=== PATIENT | female | born 1965 | race Caucasian/White ===

== ENCOUNTER → 2016-11-24 | Outpatient (CLI) | payer OTHER ==
--- NOTE | 2016-11-28 11:07 | MM ---
Reason for exam: screening (asymptomatic). Last mammogram was performed 2 years and 1 month ago. History: Patient is postmenopausal. Took hormonal contraceptives for 3 months beginning at age 17. Physical Findings: A clinical breast exam by your physician is recommended on an annual basis and results should be correlated with mammographic findings. MG Screening Mammo w CAD Bilateral CC and MLO view(s) were taken. Prior study comparison: October 23, 2014, bilateral MG screening mammo w CAD. There are scattered fibroglandular densities. No significant changes when compared with prior studies. ASSESSMENT: Negative, BI-RAD 1 RECOMMENDATION: Routine screening mammogram of both breasts in 1 year.
== END | disposition home or self-care (01) ==
LOC: RADMAMWWP 08:55
PROVIDERS: ATTEND Family Medicine
DX: Z12.31 Encounter for screening mammogram for malignant neoplasm of breast (principal)

== ENCOUNTER 2016-12-20 09:01 | Day surgery (SDC) | payer OTHER ==
[2016-12-19 10:45] VITALS: BMI 45.9
--- NOTE | 2016-12-20 08:50 | P.GSHP ---
History of Present Illness H&P Date: 12/20/16 CHIEF COMPLAINT: Colon screen HISTORY OF PRESENT ILLNESS: The patient is a 51-year-old female who presents for colon screen. Lower endoscopy was offered for further evaluation and management. PAST MEDICAL HISTORY: Please see list. PAST SURGICAL HISTORY: Please see list. MEDICATIONS: Please see list. ALLERGIES: Please see list. SOCIAL HISTORY: No illicit drug use FAMILY HISTORY: No reports of Crohn disease or ulcerative colitis. REVIEW OF ORGAN SYSTEMS: CONSTITUTIONAL: No reports of fevers or chills. PHYSICAL EXAM: VITAL SIGNS: Stable GENERAL: Well-developed pleasant in no acute distress. HEENT: No scleral icterus. Extraocular movements grossly intact. Moist buccal mucosa. NECK: Supple without lymphadenopathy. CHEST: Unlabored respirations. Equal bilateral excursions. CARDIOVASCULAR: Regular rate and rhythm. Distal 2+ pulses. ABDOMEN: Soft, nontender, nondistended. MUSCULOSKELETAL: No clubbing, cyanosis, or edema. ASSESSMENT: 1. Colon screen. PLAN: 1. Recommend proceeding with a lower endoscopy Past Medical History Past Medical History: Deep Vein Thrombosis (DVT), Hypertension History of Any Multi-Drug Resistant Organisms: None Reported Past Surgical History: Cholecystectomy Additional Past Surgical History / Comment(s): STATES ESOPHAGUS WAS TOO TIGHT AND THEY REMOVED HER RIB AND DID HILAR PROCEDURE. Past Anesthesia/Blood Transfusion Reactions: No Reported Reaction Past Psychological History: Depression Smoking Status: Former smoker Past Alcohol Use History: Occasional Additional Past Alcohol Use History / Comment(s): QUIT 4 YEARS AGO. SMOKED 2 PPD. SMOKE OVER 30 YEARS. Past Drug Use History: None Reported - Past Family History Father Family Medical History: Cancer Additional Family Medical History / Comment(s): PROSTATE CANCER Medications and Allergies Home Medications Medication Instructions Recorded Confirmed Type Lisinopril [Zestril] 20 mg PO DAILY@1200 09/26/16 12/19/16 History Venlafaxine HCl [Effexor XR] 150 mg PO DAILY@1200 12/19/16 12/19/16 History Allergies Allergy/AdvReac Type Severity Reaction Status Date / Time No Known Allergies Allergy Verified 12/19/16 10:12
[~2016-12-20 09:01] MED LIST: LACTATED RINGERS 1,000 ML IV SCH
[2016-12-20 09:18] VITALS: TEMP 97.9
[2016-12-20] MEDS ORDERED: LIDOCAINE 1% 20 ML VIAL (10MG/ML) FOR IV START INTRADERMA ONE (09:20)
[2016-12-20] MEDS ORDERED: PROPOFOL 10 MG/ML 20 ML VIAL IV ONE (09:27)
--- NOTE | 2016-12-20 09:52 | P.PCN ---
Date of Procedure: 12/20/16 Preoperative Diagnosis: Postoperative Diagnosis: Procedure(s) Performed: Implants: Indications for Procedure: Operative Findings: Description of Procedure: PREOPERATIVE DIAGNOSIS: Colonoscopy screening. Family history of colon polyps, sister. POSTOPERATIVE DIAGNOSIS: Colonoscopy screening. Family history of colon polyps, sister. Diverticulosis, scattered. External hemorrhoids, grade 2. Gastroesophageal reflux disease with regurgitation. OPERATION: Colonoscopy to the ascending colon. SURGEON: Carolann Oliver MD. ANESTHESIA: MAC. INDICATIONS: The patient is a 54-year-old female who presents for her first colonoscopy screening. Benefits and risks were described and informed consent was obtained. DESCRIPTION OF PROCEDURE: The patient had undergone Gatorade, MiraLAX and Dulcolax prep. She had been brought into the operating room and laid in the left lateral decubitus position. After adequate intravenous sedation, the rectum was examined with 2% lidocaine jelly. No external hemorrhoids were encountered. The rectal tone was within normal limits. No lesions were palpated in the rectal vault. The prep was inadequate as moderate liquid stool was found throughout the colonic cabrera. An Olympus colonoscope was advanced to the ascending colon whereby the patient started to regurgitate via her nostrils. Her poor prep limited clear visualization of the mucosal folds. The scope was slowly withdrawn. Scattered diverticulosis was encountered. No large pedunculated colonic polyps over 1 cm were found. No evidence of focal colitis was found. Retroflexion of the scope demonstrated grade 2 internal hemorrhoids without active bleeding or inflammation. The colon was desufflated. The patient had tolerated the procedure well. Withdrawal time was over 6 minutes. FINDINGS: Internal hemorrhoids, grade 2. External prolapsed hemorrhoids, grade 2. No arteriovenous malformations. No adenomatous polyps. No focal colitis. Sigmoid diverticulosis. Active regurgitation during procedure by nostrils. RECOMMENDATIONS: Lower endoscopy in one year, 2018 with 2 day prep. Recommend upper endoscopy for witnessed regurgitation and reflux. Plan - Discharge Summary New Discharge Prescriptions: No Action Lisinopril [Zestril] 20 mg PO DAILY@1200 Venlafaxine HCl [Effexor XR] 150 mg PO DAILY@1200 Discharge Medication List Lisinopril [Zestril] 20 mg PO DAILY@1200 09/27/15 [History] Venlafaxine HCl [Effexor XR] 150 mg PO DAILY@1200 12/19/16 [History] Follow up Appointment(s)/Referral(s): Carolann Oliver MD [STAFF PHYSICIAN] - 01/09/17 Patient Instructions/Handouts: Gastroesophageal Reflux Disease (DC), Diverticulosis (GEN), Diverticulosis Diet (GEN) Discharge Disposition: HOME SELF-CARE
[2016-12-20 09:53] VITALS: RESP 16
[2016-12-20 10:22] VITALS: BP 145/91; PULSE 73
== END 2016-12-20 10:41 | disposition home or self-care (01) ==
LOC: ORWHC2ENDO 09:01
PROVIDERS: ATTEND Surgery Plastic and Reconstructive Surgery
DX: Z12.11 Encounter for screening for malignant neoplasm of colon (principal); K57.30 Diverticulosis of large intestine without perforation or abscess without bleeding; K64.1 Second degree hemorrhoids; Z83.71 Family history of colonic polyps; F32.9 Major depressive disorder, single episode, unspecified; I10 Essential (primary) hypertension; Z87.891 Personal history of nicotine dependence; Z79.899 Other long term (current) drug therapy
CPT/HCPCS: J2704; G0105; 45378

== ENCOUNTER → 2017-01-15 | Outpatient (CLI) | payer OTHER ==
--- NOTE | 2017-01-15 10:18 | FL ---
EXAMINATION: Cervical and Thoracic Esophagram DATE OF EXAM: 01/15/2017 CLINICAL INDICATION: 52-year-old female with gastroesophageal reflux disease, history of 3 prior esop hageal dilatations and hilar myotomy in 1989. Patient with sensation of food stuck in the epigastric area. COMPARISON: None Total Fluoroscopy Time: 3 minutes FINDINGS: The swallowing mechanism is normal and hypopharyngeal anatomy is preserved. There is diffuse esophageal dilatation and redundancy of the lower esophagus. There is narrowing at t he level of the GE junction with a narrow stream of contrast progressing into the stomach. However, t here is progressive pooling of contrast in the esophagus with mottled ingested debris retained in the lower esophagus as well. On the patient is brought supine, there is reflux to the thoracic inlet level and mild ingested debri s noted throughout. No definite mucosal abnormality is seen. No definite hiatal hernia. IMPRESSION: 1. Diffusely dilated esophagus with narrowing at the GE junction resulting in retained ingested debri s within the lower esophagus and gradual pooling of contrast. Only a thin stream of contrast progress es into the stomach. 2. Moderate to severe gastroesophageal reflux when the patient was brought supine.
== END | disposition home or self-care (01) ==
LOC: RADFLWHC 09:27
PROVIDERS: ATTEND Surgery Plastic and Reconstructive Surgery
DX: K21.9 Gastro-esophageal reflux disease without esophagitis (principal); K22.8 Other specified diseases of esophagus; K22.2 Esophageal obstruction
CPT/HCPCS: 74220

== ENCOUNTER 2017-03-24 22:23 | Emergency (ER) | payer OTHER ==
[2017-03-24 22:32] VITALS: BP 143/93; PULSE 98; RESP 18; TEMP 98.1
[2017-03-24] MEDS ORDERED: DIPH,PERTUS(ACELL)TETVAC-LF 0.5 ML VIAL IM ONE (22:43)
--- NOTE | 2017-03-24 22:43 | ED ---
Upper Extremity HPI - General Chief Complaint: Wound/Laceration Stated Complaint: IHS/Finger Injury Time Seen by Provider: 03/24/17 22:29 Source: patient Mode of arrival: ambulatory Limitations: no limitations - History of Present Illness Initial Comments: This is a 52-year-old female who presents to the emergency department with chief complaint of left index finger injury. Patient was at work at the time of the incident. Patient states the incident happened at about 10 PM this evening. She was at work in a factory using a press. She accidentally pressed the toggle switch that closes a metal clamp and crushed her left index finger in the clamp. She was able to quickly press the switch again and it released her finger. She states that her finger feels "numb." She states she has full range of motion of her index finger. Denies fever, chills, chest pain, shortness of breath, abdominal pain, nausea or vomiting, constipation or diarrhea, dysuria or hematuria, tingling, headache or vision changes. - Related Data Home Medications Medication Instructions Recorded Confirmed Venlafaxine HCl [Effexor XR] 150 mg PO DAILY@1200 12/19/16 03/06/17 Lisinopril-Hctz 20-25 mg 1 tab PO DAILY@1200 03/06/17 03/06/17 [Zestoretic 20-25] Omeprazole 20 mg PO DAILY@1200 03/06/17 03/06/17 Previous Rx's Medication Instructions Recorded Cephalexin [Keflex] 500 mg PO Q12HR #20 cap 03/24/17 Allergies Allergy/AdvReac Type Severity Reaction Status Date / Time No Known Allergies Allergy Verified 03/24/17 22:32 Review of Systems ROS Statement: Those systems with pertinent positive or pertinent negative responses have been documented in the HPI. ROS Other: All systems not noted in ROS Statement are negative. Past Medical History Past Medical History: Deep Vein Thrombosis (DVT), Hypertension History of Any Multi-Drug Resistant Organisms: None Reported Past Surgical History: Cholecystectomy Additional Past Surgical History / Comment(s): STATES ESOPHAGUS WAS TOO TIGHT AND THEY REMOVED HER RIB AND DID HILAR PROCEDURE. Past Anesthesia/Blood Transfusion Reactions: No Reported Reaction Additional Past Alcohol Use History / Comment(s): QUIT 4 YEARS AGO. SMOKED 2 PPD. SMOKE OVER 30 YEARS. - Past Family History Father Family Medical History: Cancer Additional Family Medical History / Comment(s): PROSTATE CANCER General Exam - General Exam Comments Initial Comments: General: Awake and alert, well-developed; in no apparent distress. HEENT: Head atraumatic, normocephalic. Pupils are equal, round and reactive to light. Extraocular movements intact. Neck: Supple. Normal ROM. Cardiovascular: Regular rate and rhythm. No murmurs, rubs or gallops. Chest symmetrical. Respiratory: Lungs clear to auscultation bilaterally. No wheezes, rales or rhonchi. Normal respiratory effort with no use of accessory muscles. Musculoskeletal: Full active and passive range of motion of left index finger. Sensation is intact. Radial pulses are 2+ equal and palpable bilaterally. Skin: [place], warm and dry without rashes. There is a 0.5 cm skin avulsion proximal to the fingernail. Bleeding is controlled Small 0.25cm linear laceration on proximal fingernail without evidence of nail bed involvement. Neurological: Alert and oriented x3. CN II-XII grossly intact. Speech is fluent and answers are appropriate. No focal neuro deficits. Psychiatric: Normal mood and affect. No overt signs of depression or anxiety noted. Course Vital Signs 03/24/17 22:28 Temperature 98.1 F Pulse Rate 98 Respiratory 18 Rate Blood Pressure 143/93 O2 Sat by Pulse 98 Oximetry Procedures - Laceration Laceration #1 Consent Obtained: verbal consent Indication: laceration Site: hand (dorsal distal left index finger ) Size (cm): 1 (0.5 cm) Description: avulsion Depth: simple, single layer Anesthetic Used: lidocaine 1% Anesthesia Technique: local infiltration Amount (mls): 2 Pre-repair: wound explored, irrigated extensively, deep structures intact Type of Sutures: nylon Size of Sutures: 4-0 Number of Sutures: 1 Technique: simple, interrupted Patient Tolerated Procedure: well, no complications Medical Decision Making - Medical Decision Making This is a 52-year-old female who presents to the emergency department for evaluation following a crush injury to her left index finger while at work. There is a skin avulsion proximal to the fingernail with minor involvement of the fingernail itself. There is no evidence of nail bed involvement. X-ray of the left index finger revealed a non-displaced fracture of the distal phalanx of the left index finger. One suture was placed to hold skin avulsion together. A finger splint was also placed for added protection. Patient tolerated both well without complication. Patient will be discharged home with recommendation to follow-up with orthopedics on Sunday morning. She will be prescribed Keflex. She is in agreement with the plan and voiced understanding. All questions were answered. - Radiology Data Radiology results: report reviewed Finger x-ray findings: There is a nondisplaced fracture of the medial aspect of the tuft of the distal phalanx of the index finger left hand. Remainder of exam is unremarkable. Impression: Tuft fracture Disposition Clinical Impression: Finger laceration, Open fracture of tuft of distal phalanx of finger Disposition: HOME SELF-CARE Condition: Good Instructions: Finger Laceration (ED), Crush Injury (ED), Finger Fracture (ED) Additional Instructions: Please take medications as prescribed. Please follow up with Dr. Garcia, orthopedics, Sunday. Please keep splint clean, dry and intact. Please follow up with primary care provider within 1-2 days. Return to emergency department if symptoms should worsen or any concerns arise. Prescriptions: Cephalexin [Keflex] 500 mg PO Q12HR #20 cap Referrals: Juanito Abreu DO [Primary Care Provider] - 1-2 days Rafi Garcia MD [STAFF PHYSICIAN] - 1-2 days Time of Disposition: 23:18
--- NOTE | 2017-03-24 22:48 | XR ---
EXAMINATION TYPE: XR finger LT DATE OF EXAM: 03/24/2017 COMPARISON: NONE HISTORY: Injury. Pain. TECHNIQUE: 3 views FINDINGS: There is nondisplaced fracture of the medial aspect of the tuft of the distal phalanx of th e index finger left hand. Remainder of exam is unremarkable. IMPRESSION: Tuft fracture.
== END 2017-03-24 23:27 | disposition home or self-care (01) ==
LOC: EC 22:23
DX: S62.661B Nondisplaced fracture of distal phalanx of left index finger, initial encounter for open fracture (principal); I10 Essential (primary) hypertension; Z23 Encounter for immunization; Z79.899 Other long term (current) drug therapy; W31.89XA Contact with other specified machinery, initial encounter; Y93.89 Activity, other specified; Y99.0 Civilian activity done for income or pay; Y92.69 Other specified industrial and construction area as the place of occurrence of the external cause
CPT/HCPCS: 12001; 90471; 90715; 99283

== ENCOUNTER → 2017-05-25 | Day surgery (SDC) | payer OTHER ==
[2017-05-23 12:10] VITALS: BMI 45.9
[2017-05-25 11:55] VITALS: BP 128/73; PULSE 98; RESP 16; TEMP 97.2
--- NOTE | 2017-06-22 15:06 | PCN ---
PROCEDURE NOTE DATE OF SERVICE: 05/27/2017 BRIEF HISTORY: The patient is a 52-year-old white female patient who has high-resolution impedance esophageal manometry for evaluation of dysphagia and passive regurgitation. The patient was diagnosed with esophageal achalasia 30 years ago and she had a myotomy. She had an upper endoscopy by Dr. Oliver a few months ago that showed evidence of dilated esophagus with retained solid food but patient lower esophageal sphincter. Because of her symptoms, she is scheduled for an esophageal manometry today. Procedure performed, high resolution impedance manometry. , consent was obtained from the patient, she was brought into the endoscopy unit. Esophageal manometry catheter was passed from the internal nostril and gently advanced into the esophagus and stomach. Study was performed by Endoscopy nurse, Mercedes Alatorre. The interpretation was performed using standard Santyl measurements/[place] classification. FINDINGS: 1. Integral residual pressure (IRP) 16 mmHg, mean DCI 383 mmHg, VERNON 19 mmHg. Peristalsis 0%. Complete bolus transit of liquid as well as with viscus was 0%. 2. There were isometric contractions, isometric pressurization noted throughout the study involving all the swallows. INTERPRETATION: The impedance esophageal manometry study shows evidence of a peristalsis but the integral residual pressures of the lower esophageal sphincter are within normal limits indicative of prior esophageal Heller myotomy. These changes are consistent with esophageal achalasia with prior esophageal myotomy. MMODL / IJN: [id number] /
== END ==
LOC: ORWHC2ENDO 11:44
PROVIDERS: ATTEND Internal Medicine Gastroenterology
DX: K22.0 Achalasia of cardia (principal); Z79.899 Other long term (current) drug therapy
CPT/HCPCS: 91010

== ENCOUNTER → 2017-07-23 | Outpatient (CLI) | payer OTHER ==
--- NOTE | 2017-07-23 09:32 | CT ---
EXAMINATION TYPE: CT chest wo con DATE OF EXAM: 07/23/2017 COMPARISON: NONE HISTORY: Patient complains of difficulty breathing. CT DLP: 715.7 mGycm. Automated Exposure Control for Dose Reduction was Utilized. TECHNIQUE: CT scan of the thorax is performed without IV contrast. FINDINGS: LUNGS: Within the left upper lobe in the perihilar region is vague groundglass changes. No pleural ef fusion. There is a noncalcified nodule on image 33 with the superior segment of the right lower lobe. Additional perihilar subsegmental consolidation noted within the left lower lobe. A second nodule al so noted within the right lower lobe measuring approximately 4 MEDIASTINUM: Lack of IV contrast is noted to limit evaluation for mediastinal and especially hilar a denopathy. There are no definitive greater than 1 cm hilar or mediastinal lymph nodes. Heart size is prominent and there is a large hiatal hernia. OTHER: Previous gallbladder surgery noted. Coronary artery calcification seen. Atherosclerotic change of the vasculature. IMPRESSION: 1. There are subsegmental groundglass changes involving the left upper and lower lobe which can occas ionally be seen with a pneumonitis or alveolitis. Correlate clinically. 2. Large hiatal hernia. 3. There are 2 less than 5 mm pulmonary nodules within the right lung. Six-month follow-up is recomme nded to confirm stability.
--- NOTE | 2017-07-23 12:18 | ECHOF ---
Referral Reason:I27.0 pulmonary hypertention MEASUREMENTS -------- HEIGHT: 162.6 cm WEIGHT: 158.8 kg BP: IVSd: 1.2 cm (0.6 - 1.1) LVIDd: 4.7 cm (3.9 - 5.3) LVPWd: 1.5 cm (0.6 - 1.1) IVSs: 1.4 cm LVIDs: 3.3 cm LVPWs: 1.4 cm LAESV Index (A-L): 27.00 ml/m Ao Diam: 3.1 cm (2.0 - 3.7) LA Diam: 3.9 cm (2.7 - 3.8) MV EXCURSION: 19.436 mm (> 18.000) MV EF SLOPE: 113 mm/s (70 - 150) EPSS: 0.4 cm MV E Dave: 0.67 m/s MV DecT: 238 ms MV A Dave: 0.87 m/s MV E/A Ratio: 0.77 RAP: 5.00 mmHg RVSP: 19.65 mmHg FINDINGS -------- Sinus rhythm. This was a technically adequate study. Morbid Obesity The left ventricular size is normal. There is mild concentric left ventricular hypertrophy. Overa ll left ventricular systolic function is low-normal with, an EF between 50 - 55 %. The right ventricle is normal in size. The left atrial size is normal. Normal LA size by volume 22+/-6 ml/m2. The right atrial size is normal. Mild mitral annular calcification present. Mild mitral regurgitation is present. Mild tricuspid regurgitation present. There is no evidence of pulmonary hypertension. The right v entricular systolic pressure, as measured by Doppler, is 19.65mmHg. The pulmonic valve was not well visualized. The aortic root size is normal. There is no pericardial effusion. CONCLUSIONS -------- 1. Morbid Obesity 2. The left ventricular size is normal. 3. There is mild concentric left ventricular hypertrophy. 4. Overall left ventricular systolic function is low-normal with, an EF between 50 - 55 %. 5. Normal LA size by volume 22+/-6 ml/m2. 6. Mild mitral annular calcification present. 7. Mild mitral regurgitation is present. 8. Mild tricuspid regurgitation present. 9. There is no evidence of pulmonary hypertension. 10. The right ventricular systolic pressure, as measured by Doppler, is 19.65mmHg. 11. The pulmonic valve was not well visualized. 12. The aortic root size is normal. 13. There is no pericardial effusion. ICT SECURITY SPECIALIST: Becca Rivera RDCS
== END | disposition home or self-care (01) ==
LOC: RADCTMAIN 08:04
PROVIDERS: ATTEND Internal Medicine
DX: R19.8 Other specified symptoms and signs involving the digestive system and abdomen (principal); L94.0 Localized scleroderma [morphea]
CPT/HCPCS: 71250; 93306

== ENCOUNTER → 2017-08-06 | Outpatient (CLI) | payer OTHER ==
[2017-08-06 17:44] LABS: HCT 37.6 % (34.0-46.0); HGB 12.3 gm/dL (11.4-16.0); MCH 28.3 pg (25.0-35.0); MCHC 32.6 g/dL (31.0-37.0); MCV 86.6 fL (80.0-100.0); Platelet Count 339 k/uL (150-450); RBC 4.34 m/uL (3.80-5.40); RDW 14.8 % (11.5-15.5); WBC 10.6 k/uL (3.8-10.6)
[2017-08-06 17:58] LABS: Anion Gap 12 mmol/L; Blood Urea Nitrogen 24 mg/dL (7-17); Carbon Dioxide 29 mmol/L (22-30); Chloride 101 mmol/L (98-107); Potassium 4.7 mmol/L (3.5-5.1); Sodium 142 mmol/L (137-145)
== END | disposition home or self-care (01) ==
LOC: LABPAT 17:18
PROVIDERS: ATTEND Internal Medicine Interventional Cardiology
DX: Z01.812 Encounter for preprocedural laboratory examination (principal); R07.9 Chest pain, unspecified
CPT/HCPCS: 36415; 80051; 82565; 84520; 85027

== ENCOUNTER → 2017-08-24 | Outpatient (CLI) | payer OTHER ==
[2017-08-24 12:31] LABS: ALT 30 U/L (9-52); AST 17 U/L (14-36); Cholesterol 188 mg/dL (<200); HDL Cholesterol 55 mg/dL (40-60); LDL Cholesterol,Calculated 105 mg/dL (0-99); Triglycerides 138 mg/dL (<150)
== END | disposition home or self-care (01) ==
LOC: LABWHC1 11:24
PROVIDERS: ATTEND Nurse Practitioner Adult Health
DX: E78.5 Hyperlipidemia, unspecified (principal)
CPT/HCPCS: 36415; 80061; 84450; 84460

== ENCOUNTER 2017-10-04 16:29 | Inpatient (IN) | payer OTHER ==
[2017-10-04] MEDS ORDERED: SODIUM CHLORIDE 0.9% 1,000 ML IV ONE (16:46)
[2017-10-04] MEDS ORDERED: IPRATROPIUM-ALBUTEROL 3 ML NEB INHALATION STA (16:46)
[2017-10-04] MEDS ORDERED: methylPREDNISolone SOD SUCCI 125 MG/2 ML VIAL IV STA (16:46)
--- NOTE | 2017-10-04 16:50 | ED ---
SOB HPI - General Chief Complaint: Shortness of Breath Stated Complaint: BHUMIKA Time Seen by Provider: 10/04/17 16:30 Source: patient, EMS Mode of arrival: EMS Limitations: no limitations - History of Present Illness Initial Comments: This is a 52-year-old female with a history of abnormal pulmonary function tests who presents emergency department for worsening shortness of breath for the last 3 or 4 days. She states that it has gradually worsened. She states that she has been coughing. No fevers or chills. No chest pain associated with this. She states that she's had quite a bit of wheezing. She received 2 DuoNeb treatments and a Xopenex treatment in route with slight improvement in her symptoms however states that she feels persistently short of breath. States that she has been coughing however this is nonproductive. No lower Chevys swelling area no abdominal pain. No other acute complaints. - Related Data Home Medications Medication Instructions Recorded Confirmed Venlafaxine HCl [Effexor XR] 150 mg PO DAILY 12/19/16 10/04/17 Lisinopril-Hctz 20-25 mg 1 tab PO DAILY 03/06/17 10/04/17 [Zestoretic 20-25] Omeprazole 20 mg PO DAILY 03/06/17 10/04/17 Atorvastatin [Lipitor] 10 mg PO DAILY 10/04/17 10/04/17 Multivitamins, Thera [Multivitamin 1 tab PO DAILY 10/04/17 10/04/17 (formulary)] Allergies Allergy/AdvReac Type Severity Reaction Status Date / Time No Known Allergies Allergy Verified 10/04/17 16:57 Review of Systems ROS Statement: Those systems with pertinent positive or pertinent negative responses have been documented in the HPI. ROS Other: All systems not noted in ROS Statement are negative. Past Medical History Past Medical History: Deep Vein Thrombosis (DVT), GERD/Reflux, Hypertension, Osteoarthritis (OA) Additional Past Medical History / Comment(s): DVT years ago after taking control, achalasia, osteoarthritis rt knee History of Any Multi-Drug Resistant Organisms: None Reported Past Surgical History: Cholecystectomy Additional Past Surgical History / Comment(s): STATES ESOPHAGUS WAS TOO TIGHT AND THEY REMOVED HER RIB AND DID HILAR PROCEDURE, eye surg. as a baby Past Anesthesia/Blood Transfusion Reactions: No Reported Reaction Past Psychological History: Anxiety, Depression Smoking Status: Former smoker Past Alcohol Use History: Occasional Past Drug Use History: None Reported - Past Family History Father Family Medical History: Cancer Additional Family Medical History / Comment(s): PROSTATE CANCER General Exam - General Exam Comments Initial Comments: Constitutional: Awake alert Appears comfortable Head: Normocephalic atraumatic Eyes: no conjunctival injection No scleral icterus EOMI Neck: No JVD Supple Heart: Regular rate rhythm normal S1-S2 no murmurs Lungs: The patient appears to Make without respiratory distress, there is diffuse wheezing throughout all lung p[place] Abdomen: Soft nondistended nontender Extremities: Non edematous DP pulses intact Radial pulses intact Neuro: A&Ox3 No focal neurologic deficits Psych: Appropriate mood and affect Limitations: no limitations Course Vital Signs 10/04/17 10/04/17 10/04/17 16:32 16:36 16:59 Temperature 99.0 F Pulse Rate 122 H 118 H Respiratory 16 20 Rate Blood Pressure 128/71 O2 Sat by Pulse 92 L Oximetry 10/04/17 10/04/17 17:06 17:08 Temperature Pulse Rate 122 H 120 H Respiratory 18 Rate Blood Pressure 128/71 O2 Sat by Pulse 95 Oximetry - Reevaluation(s) Reevaluation #1: 10/04/17 16:56 EKG showing sinus tachycardia with a rate of 121. There is no abnormal ST segment changes or T-wave inversions. QTC is 460. Other intervals normal. No ectopy. Medical Decision Making - Medical Decision Making This is a 52-year-old female who presents emergency department for shortness of breath and cough. Chest x-ray did not show any new abnormalities. No infiltrate or consolidation. However the patient does have a significant leukocytosis. She is not currently on steroids. The patient did feel improved after a DuoNeb treatment however was persistently tachypneic and wheezy. She is not retaining CO2 however due to her persistent symptoms and significant wheezing and going to keep her in the hospital overnight for IV steroids and breathing treatments. I also gave her azithromycin due to her leukocytosis. Dr. Soto accepts the admission. The patient was updated and agrees with plan. - Lab Data Result diagrams: 10/04/17 16:40 10/04/17 16:40 Lab Results 10/04/17 10/04/17 10/04/17 Range/Units 16:40 16:40 16:40 WBC 17.6 H (3.8-10.6) k/uL RBC 4.69 (3.80-5.40) m/uL Hgb 13.5 (11.4-16.0) gm/dL Hct 40.3 (34.0-46.0) % MCV 85.8 (80.0-100.0) fL MCH 28.7 (25.0-35.0) pg MCHC 33.4 (31.0-37.0) g/dL RDW 16.0 H (11.5-15.5) % Plt Count 390 (150-450) k/uL Neutrophils % 75 % Lymphocytes % 19 % Monocytes % 4 % Eosinophils % 0 % Basophils % 0 % Neutrophils # 13.1 H (1.3-7.7) k/uL Lymphocytes # 3.4 (1.0-4.8) k/uL Monocytes # 0.8 (0-1.0) k/uL Eosinophils # 0.1 (0-0.7) k/uL Basophils # 0.0 (0-0.2) k/uL Anisocytosis Slight PT (9.0-12.0) sec INR (<1.2) APTT (22.0-30.0) sec VBG pH 7.41 (7.31-7.41) VBG pCO2 36 L (37-51) mmHg VBG HCO3 22 L (24-28) mmol/L Sodium 148 H (137-145) mmol/L Potassium 3.8 (3.5-5.1) mmol/L Chloride 108 H (98-107) mmol/L Carbon Dioxide 21 L (22-30) mmol/L Anion Gap 19 mmol/L BUN 34 H (7-17) mg/dL Creatinine 1.01 (0.52-1.04) mg/dL Est GFR (CKD-EPI)AfAm 74 (>60 ml/min/1.73 sqM) Est GFR (CKD-EPI)NonAf 64 (>60 ml/min/1.73 sqM) Glucose 136 H (74-99) mg/dL Calcium 11.1 H (8.4-10.2) mg/dL Total Bilirubin 0.5 (0.2-1.3) mg/dL AST 27 (14-36) U/L ALT 39 (9-52) U/L Alkaline Phosphatase 82 (38-126) U/L CK-MB (CK-2) (0.0-2.4) ng/mL Troponin I (0.000-0.034) ng/mL NT-Pro-B Natriuret Pep pg/mL Total Protein 7.3 (6.3-8.2) g/dL Albumin 4.7 (3.5-5.0) g/dL 10/04/17 10/04/17 10/04/17 Range/Units 16:40 16:40 16:40 WBC (3.8-10.6) k/uL RBC (3.80-5.40) m/uL Hgb (11.4-16.0) gm/dL Hct (34.0-46.0) % MCV (80.0-100.0) fL MCH (25.0-35.0) pg MCHC (31.0-37.0) g/dL RDW (11.5-15.5) % Plt Count (150-450) k/uL Neutrophils % % Lymphocytes % % Monocytes % % Eosinophils % % Basophils % % Neutrophils # (1.3-7.7) k/uL Lymphocytes # (1.0-4.8) k/uL Monocytes # (0-1.0) k/uL Eosinophils # (0-0.7) k/uL Basophils # (0-0.2) k/uL Anisocytosis PT 10.1 (9.0-12.0) sec INR 1.0 (<1.2) APTT 22.9 (22.0-30.0) sec VBG pH (7.31-7.41) VBG pCO2 (37-51) mmHg VBG HCO3 (24-28) mmol/L Sodium (137-145) mmol/L Potassium (3.5-5.1) mmol/L Chloride (98-107) mmol/L Carbon Dioxide (22-30) mmol/L Anion Gap mmol/L BUN (7-17) mg/dL Creatinine (0.52-1.04) mg/dL Est GFR (CKD-EPI)AfAm (>60 ml/min/1.73 sqM) Est GFR (CKD-EPI)NonAf (>60 ml/min/1.73 sqM) Glucose (74-99) mg/dL Calcium (8.4-10.2) mg/dL Total Bilirubin (0.2-1.3) mg/dL AST (14-36) U/L ALT (9-52) U/L Alkaline Phosphatase (38-126) U/L CK-MB (CK-2) 1.9 (0.0-2.4) ng/mL Troponin I <0.012 (0.000-0.034) ng/mL NT-Pro-B Natriuret Pep 258 pg/mL Total Protein (6.3-8.2) g/dL Albumin (3.5-5.0) g/dL Disposition Clinical Impression: Bronchitis Disposition: ADMITTED IP TO THIS HOSP Condition: Stable
[2017-10-04 16:59] LABS: Anisocytosis Slight; Basophils % (A) 0 %; Eosinophils # (A) 0.1 k/uL (0-0.7); Eosinophils % (A) 0 %; HCT 40.3 % (34.0-46.0); HGB 13.5 gm/dL (11.4-16.0); Lymphocytes # (A) 3.4 k/uL (1.0-4.8); Lymphocytes % (A) 19 %; MCH 28.7 pg (25.0-35.0); MCHC 33.4 g/dL (31.0-37.0); MCV 85.8 fL (80.0-100.0); Monocytes # (A) 0.8 k/uL (0-1.0); Monocytes % (A) 4 %; Neutrophils # (A) 13.1 k/uL (1.3-7.7); Neutrophils % (A) 75 %; Platelet Count 390 k/uL (150-450); RBC 4.69 m/uL (3.80-5.40); WBC 17.6 k/uL (3.8-10.6)
[2017-10-04 17:02] LABS: VBG PH 7.41 (7.31-7.41)
[2017-10-04 17:08] LABS: Partial Thromboplastin Time 22.9 sec (22.0-30.0); Prothrombin Time 10.1 sec (9.0-12.0)
[2017-10-04 17:22] LABS: Albumin 4.7 g/dL (3.5-5.0); Calcium 11.1 mg/dL (8.4-10.2); Potassium 3.8 mmol/L (3.5-5.1); Total Bilirubin 0.5 mg/dL (0.2-1.3); Total Protein 7.3 g/dL (6.3-8.2)
--- NOTE | 2017-10-04 17:29 | XR ---
EXAMINATION TYPE: XR chest 2V DATE OF EXAM: 10/04/2017 COMPARISON: 07/03/2017 HISTORY: Short of breath TECHNIQUE: Frontal and lateral views of the chest are obtained. FINDINGS: There is slight blunting of left costophrenic angle. There is no heart failure. There is p robably hiatal hernia. There is no heart failure. Heart size appears normal. There are chest leads. IMPRESSION: There is pleural reaction at the left lung base that is improved compared to last exam. No heart failure. Hiatal hernia.
[2017-10-04 17:37] LABS: Creatine Kinase MB 1.9 ng/mL (0.0-2.4); Troponin I <0.012 ng/mL (0.000-0.034)
[2017-10-04] MEDS ORDERED: AZITHROMYCIN 500 MG in SODIUM CHLORIDE 0.9% 250 ML IVPB STA (17:41)
[2017-10-04] MEDS ORDERED: IPRATROPIUM-ALBUTEROL 3 ML NEB INHALATION SCH (20:00)
[2017-10-04] MEDS ORDERED: ALPRAZolam 0.25 MG TAB PO PRN (20:11)
[2017-10-04] MEDS ORDERED: ACETAMINOPHEN TAB 325 MG TAB PO PRN (20:11)
[2017-10-04] MEDS ORDERED: LACTULOSE 20 GM/30 ML CUP PO PRN (20:11)
[2017-10-04] MEDS ORDERED: MAGNESIUM HYDROXIDE 2,400 MG/10 ML CUP PO PRN (20:11)
[2017-10-04] MEDS ORDERED: NALOXONE 0.4 MG/ML 1 ML VIAL IV PRN (20:11)
[2017-10-04] MEDS ORDERED: CALCIUM CARBONATE 500 MG CHEWABLE PO PRN (20:11)
[2017-10-04] MEDS ORDERED: ONDANSETRON 4 MG/2 ML VIAL IVP PRN (20:11)
[2017-10-04] MEDS ORDERED: MELATONIN 3 MG TABLET PO PRN (20:11)
[2017-10-04 21:13] LABS: Glucose,Whole Blood 174 mg/dL (75-99)
[2017-10-04] MEDS: methylPREDNISolone SOD SUCCI 125 MG/2 ML VIAL IV SCH (23:32)
[2017-10-04] MEDS: IPRATROPIUM-ALBUTEROL 3 ML NEB INHALATION PRN (23:48)
[2017-10-05] MEDS: IPRATROPIUM-ALBUTEROL 3 ML NEB INHALATION PRN (03:36)
[2017-10-05] MEDS: methylPREDNISolone SOD SUCCI 125 MG/2 ML VIAL IV SCH ×3 (05:31→17:50)
--- NOTE | 2017-10-05 06:30 | HP ---
HISTORY AND PHYSICAL DATE OF ADMISSION: 10/04/17. DATE OF SERVICE: 10/04/17. PRESENTING COMPLAINT: Short of breath. HISTORY OF PRESENTING COMPLAINT: This is a pleasant 52-year-old patient I saw yesterday evening on the medical floor. The patient follows with Dr. Abreu. The patient's chronic stable medical conditions include GERD, hypertension, osteoarthritis, anxiety, depression. The patient has also got achalasia and patient has had previous surgery for the same. The patient does find the food seems to get stuck on the lower end of the food pipe. But she is told that nothing more can be done and she does take a soft bland diet for that reason. The patient presented with 3-4 days of progressively increasing shortness of breath, some wheezing, cough. The patient is able to put out a little bit of phlegm. The patient has had a low-grade fever she thinks. Appetite has gone down, feeling tired, run down. The patient is started on breathing treatments and antibiotics in the ER and admitted for the same. The patient denies any swelling of the legs or calves REVIEW OF SYSTEMS: CONSTITUTIONAL: Weak, tired, low-grade fever. HEENT: As above. RESPIRATORY: As above. CARDIOVASCULAR: None. GASTROINTESTINAL: As above. GENITOURINARY: None. MUSCULOSKELETAL: Arthritic pain in the joints. DERMATOLOGICAL, HEMATOLOGIC, LYMPHATIC: None. PSYCHIATRY: Anxiety, depression, controlled. NEUROLOGICAL: None. PAST MEDICAL HISTORY: DVT in the remote past, GERD, hypertension, osteoarthritis, achalasia with surgery, osteoarthritis of the knees. PAST SURGICAL HISTORY: Cholecystectomy, cardiac catheterization, esophageal procedure, eye surgery as a baby. PSYCH HISTORY: Anxiety, depression. SOCIAL HISTORY: The patient smoked for 2 packs a day for about 32 years, stopped about 5 years ago. The patient has a son at home and works as a flower shop laborer/designer in a factory. FAMILY HISTORY: Prostate cancer. HOME MEDICATIONS: 1. Vitamin D2 97568 units p.o. daily. 2. Lipitor 10 mg daily. 3. Multivitamin 1 tablet p.o. daily. 4. Effexor XR 150 mg p.o. daily. 5. Omeprazole 20 mg p.o. daily. 6. Zestoretic 20/25. ALLERGIES: None. PHYSICAL EXAMINATION: VITAL SIGNS ON PRESENTATION: Temperature 99, pulse 122, respirations 16, blood pressure 120/71, pulse 92% on 2-L. GENERAL APPEARANCE: Well built, BMI 45.9, lying in bed, short of breath, wheezing. EYES: Pupils equal. Conjunctivae normal. HEENT: External appearance of nose and ears normal. Oral cavity normal. NECK: JVD not raised. Mass not palpable. RESPIRATORY: Effort increased. Lungs, decreased breath sounds with prolonged expiration and wheezing. CARDIOVASCULAR: 1st and 2nd sounds normal. No edema. ABDOMEN: Soft, nontender. Liver and spleen not palpable. LYMPHATIC: No lymph node palpable in neck or axillae. PSYCHIATRY: Alert and oriented x3. Mood and affect slightly anxious-appearing. NEUROLOGICAL: Pupils equal. Cranial nerves grossly intact. Power and sensation grossly intact. INVESTIGATIONS: White count 7.6, hemoglobin 13.5, potassium 3.8, BUN 34, creatinine 1.01. ProBNP 258. EKG sinus tachycardia. Chest x-ray does not report anything acute. ASSESSMENT: 1. Acute severe chronic obstructive pulmonary disease exacerbation in an ex-smoker with possibly acute tracheobronchitis. 2. Gastroesophageal reflux disease. 3. Essential hypertension. 4. Primary osteoarthritis. 5. Achalasia with a prior history of surgery. Symptoms are still present. 6. Anxiety and depression, not otherwise specified. 7. Sinus tachycardia from chronic obstructive pulmonary disease exacerbation. 8. Morbid obesity, BMI 45.9. PLAN: Patient is started on nebulized bronchodilators, steroids. Home medications are resumed. Care was discussed with the patient. Questions were answered. We will get a pulmonary opinion. Dietitian will be consulted. MMODL / IJN: [id number] /
[2017-10-05 07:33] LABS: Glucose,Whole Blood 167 mg/dL (75-99)
[2017-10-05] MEDS: INSULIN ASPART 100 UNIT/ML 1 ML 10 ML VIAL SQ SCH ×4 (07:51→21:00)
[2017-10-05] MEDS: PANTOPRAZOLE 40 MG TABLET PO SCH (07:52)
[2017-10-05] MEDS: LISINOPRIL-HCTZ 20-25 MG 1 EACH TAB PO SCH (07:53)
[2017-10-05] MEDS: ATORVASTATIN 10 MG TAB PO SCH (07:53)
[2017-10-05] MEDS: VENLAFAXINE HCL ER 150 MG CAP PO SCH (07:53)
[2017-10-05] MEDS: ENOXAPARIN 40 MG/0.4 ML SYRINGE SQ SCH (07:55)
[2017-10-05] MEDS: IPRATROPIUM-ALBUTEROL 3 ML NEB INHALATION SCH ×5 (08:13→23:54)
--- NOTE | 2017-10-05 10:33 | CT ---
CT CHEST FOR PULMONARY EMBOLISM. EXAMINATION TYPE: CT angio chest DATE OF EXAM: 10/05/2017 INDICATION: Bronchitis, R/O PE, history of scleroderma CT DLP: 530.80 mGycm, Automated exposure control for dose reduction was used. CONTRAST: Patient injected with 100 ml mL of Isovue 370. COMPARISON: 07/23/2017 TECHNIQUE: CT of the chest is performed on a spiral scan at 2 mm thick sections. Study is performed with intravenous contrast timed for evaluation for pulmonary embolism. This will limit additional po rtions of the evaluation. 3-D MIP images reconstructed by the technologist are reviewed on the compu ter in the coronal and sagittal planes. FINDINGS: No persistent filling defects are evident to suggest an acute pulmonary embolism. The expected region of the esophagus is dilated with an air-fluid level. There appears to be a gastri c pull-through. Correlate with the patient's surgical history. Finding coronary, patient has history of scleroderma. No mediastinal or hilar adenopathy enlarged by CT criteria is evident. The ascending aorta diameter at the level of the main pulmonary artery is 3.5 cm. The main pulmonary artery diameter at the bifur cation is 3.1 cm. Coronary artery calcification is present. Minimal pneumonitis changes in the anterior left upper lung field. Mild peribronchial thickening is p resent. Some pneumonitis changes in the right middle lobe. Series 6 image 59. Mild patchy pneumonitis changes are within the posterior lung bases and within the lingula. Some peribronchial thickening is in lower lung field. Some chronic bronchitis may be present. Limited CT section through the upper abdomen are unremarkable. IMPRESSIONS: 1. Mild peribronchial thickening. Correlate for chronic bronchitis. 2. Scattered patchy infiltrates which are nonspecific. Correlate for an infectious etiology. Larger c onsolidations typical pneumonia are not identified. 3. Suspected gastric pull-through with dilated esophagus. 4. No acute pulmonary embolism.
[2017-10-05 10:46] VITALS: BMI 45.9
[2017-10-05 11:49] LABS: Glucose,Whole Blood 172 mg/dL (75-99)
[2017-10-05] MEDS: MULTIVITAMINS, THERA 1 EACH TAB PO SCH (12:34)
--- NOTE | 2017-10-05 13:41 | P.CNPUL ---
History of Present Illness Consult date: 10/05/17 Requesting physician: Gurinder Soto Reason for consult: dyspnea, cough, COPD, pneumonia, abnormal CXR/CT Chief complaint: Chest tightness, cough, fever, chills History of present illness: Mercedes is a 52-year-old white female patient of Dr. Abreu, who presented to the emergency department on 10/04/2017 with complaints of dyspnea, chest tightness, burning in the chest with coughing, subjective fever and chills. Her symptoms started on Sunday, on Sunday she try to see her PCP, however there were no openings, and she end up going to the [facility] urgent care, she was given a nebulized treatment there, IM Depo-Medrol, and was sent home with an albuterol inhaler. Her symptoms kept progressing, she went to work on however she could hardly walk from the parking lot to the building due to her severe dyspnea. Her boss told her to go back to see the doctor, and she went to the urgent care at the [facility] at the [facility] in [place]. There she was given 3 nebulized treatments [id number], and transferred to the [facility] emergency department per EMS. He is an ex-smoker, she quit 5 years ago, but prior to that she smoked up to 2 packs a day for 30 years. She has a history of hiatal hernia, and she was seen in the pulmonary office by Dr. Lopez for preop clearance. Outpatient PFT showed FEV1 of 53%, FVC of 58%, TLC of 85% of predicted, and DLCO of 50%, and patient was diagnosed with restrictive lung disease, secondary to interstitial lung disease. Outpatient CT chest from 07/23/2017 showed subsegmental groundglass changes involving the left upper and lower lobe could be related to pneumonitis or alveolitis, large hiatal hernia, and to less than 5 mm pulmonary nodules within the right lung. Echocardiogram from 07/23/2017 showed left ventricular systolic function with an EF between 50-55%, no evidence of pulmonary hypertension, right ventricular systolic pressure of 19.6 mmHg, and mild mitral , and tricuspid regurgitation. Other medical history includes hypertension, hyperlipidemia, GERD/reflux with esophagitis, depression, obesity, insomnia, CREST syndrome. Patient states she had an extensive workup by the geophysics professor, in the workup for scleroderma was negative. Chest x-ray completed in the emergency department on 10/04/2017 showed pleural reaction at the left lung base improved compared the last exam from June 2017, some heart failure, hiatal hernia was again seen. CT angios was completed and showed mild peribronchial thickening, consistent with chronic bronchitis. Nonspecific scattered patchy infiltrates, consistent with pneumonitis. No pulmonary embolism. Gastric pull-through was noted with dilated esophagus. Patient was given Zithromax and Rocephin in the emergency department, and we are seeing the patient in consultation for acute bronchitis, and the possibility of aspiration pneumonia related to her history of significant GERD/reflux, hiatal hernia, and esophagitis. Review of Systems All systems: negative Constitutional: Denies chills, Denies fever Eyes: denies blurred vision, denies pain Ears, nose, mouth and throat: Denies headache, Denies sore throat Cardiovascular: Denies chest pain, Denies shortness of breath Respiratory: Reports congestion, Reports dyspnea, Reports wheezing, Denies cough Gastrointestinal: Denies abdominal pain, Denies diarrhea, Denies nausea, Denies vomiting Genitourinary: Denies dysuria, Denies hematuria Musculoskeletal: Denies myalgias Integumentary: Denies pruritus, Denies rash Neurological: Denies numbness, Denies weakness Psychiatric: Denies anxiety, Denies depression Endocrine: Denies fatigue, Denies weight change Past Medical History Past Medical History: Deep Vein Thrombosis (DVT), GERD/Reflux, Hypertension, Osteoarthritis (OA) Additional Past Medical History / Comment(s): DVT years ago after taking control, achalasia, osteoarthritis rt knee History of Any Multi-Drug Resistant Organisms: None Reported Past Surgical History: Cholecystectomy, Heart Catheterization Additional Past Surgical History / Comment(s): STATES ESOPHAGUS WAS TOO TIGHT AND THEY REMOVED HER RIB AND DID HILAR PROCEDURE, eye surg. as a baby Past Anesthesia/Blood Transfusion Reactions: No Reported Reaction Past Psychological History: Anxiety, Depression Smoking Status: Former smoker Past Alcohol Use History: Occasional Additional Past Alcohol Use History / Comment(s): QUIT 5 YEARS AGO. SMOKED 2 PPD. SMOKE OVER 30 YEARS. Past Drug Use History: None Reported - Past Family History Father Family Medical History: Cancer Additional Family Medical History / Comment(s): PROSTATE CANCER Medications and Allergies Home Medications Medication Instructions Recorded Confirmed Type Venlafaxine HCl [Effexor XR] 150 mg PO DAILY 12/19/16 10/04/17 History Lisinopril-Hctz 20-25 mg 1 tab PO DAILY 03/06/17 10/04/17 History [Zestoretic 20-25] Omeprazole 20 mg PO DAILY 03/06/17 10/04/17 History Atorvastatin [Lipitor] 10 mg PO DAILY 10/04/17 10/04/17 History Ergocalciferol (Vitamin D2) 50,000 unit PO DAILY 10/04/17 10/04/17 History [Vitamin D2] Multivitamins, Thera [Multivitamin 1 tab PO DAILY 10/04/17 10/04/17 History (formulary)] Allergies Allergy/AdvReac Type Severity Reaction Status Date / Time No Known Allergies Allergy Verified 10/04/17 16:57 Physical Exam Vitals: Vital Signs Temp Pulse Pulse Resp BP BP Pulse Ox 10/05/17 11:44 108 H 10/05/17 11:34 108 H 10/05/17 08:23 85 10/05/17 08:13 85 10/05/17 06:05 97.4 F L 112 H 24 119/58 98 10/05/17 03:52 84 10/05/17 03:36 80 10/05/17 00:01 100 10/04/17 23:48 104 H 10/04/17 23:00 98.5 F 107 H 24 107/50 97 10/04/17 21:39 100 10/04/17 21:24 100 10/04/17 18:30 97.1 F L 118 H 22 111/89 91 L 10/04/17 18:12 112 H 16 127/82 97 10/04/17 17:08 120 H 18 128/71 95 10/04/17 17:06 122 H 10/04/17 16:59 118 H 10/04/17 16:36 20 10/04/17 16:32 99.0 F 122 H 16 128/71 92 L Intake and Output 10/04/17 10/05/17 10/05/17 22:59 06:59 14:59 Intake Total 400 100 Balance 400 100 Intake: Oral 400 100 Other: # Voids 2 1 # Bowel Movements 0 0 Weight 145.15 kg 145.15 kg Physical exam reveals a 52-year-old white female, obese, mildly dyspneic with conversation, and audibly wheezy - Constitutional General appearance: obese - EENT Eyes: EOMI, PERRLA ENT: NA/AT - Neck Neck: no lymphadenopathy Carotids: bilateral: upstroke normal Thyroid: bilateral: normal size - Respiratory Respiratory: bilateral: wheezing (Diffuse wheezes throughout), prolonged expiration - Cardiovascular Rhythm: regular Heart sounds: normal: S1, S2 ankle Peripheral Edema: absent: None foot Peripheral Edema: absent: None leg Peripheral Edema: absent: None dorsalis pedis Peripheral Pulses: bilateral: Normal radial pulse Peripheral Pulses: bilateral: Normal - Gastrointestinal General gastrointestinal: no organomegaly, soft, no tenderness - Neurologic Neurologic: CNII-XII intact - Musculoskeletal Musculoskeletal: gait normal, strength equal bilaterally - Psychiatric Psychiatric: A&O x's 3, appropriate affect, intact judgment & insight Results - Laboratory Findings CBC and BMP: 10/04/17 16:40 10/04/17 16:40 PT/INR, D-dimer PT 10.1 sec (9.0-12.0) 10/04/17 16:40 INR 1.0 (<1.2) 10/04/17 16:40 Abnormal lab findings: Abnormal Labs 10/04/17 10/04/17 10/04/17 16:40 16:40 16:40 WBC 17.6 H RDW 16.0 H Neutrophils # 13.1 H VBG pCO2 36 L VBG HCO3 22 L Sodium 148 H Chloride 108 H Carbon Dioxide 21 L BUN 34 H Glucose 136 H POC Glucose (mg/dL) Calcium 11.1 H 10/04/17 10/05/17 10/05/17 21:10 07:29 11:34 WBC RDW Neutrophils # VBG pCO2 VBG HCO3 Sodium Chloride Carbon Dioxide BUN Glucose POC Glucose (mg/dL) 174 H 167 H 172 H Calcium - Diagnostic Findings Chest x-ray: report reviewed, image reviewed CT scan - chest: report reviewed, image reviewed Additional studies: EKG reviewed Assessment and Plan Plan: Assessment: #1. Dyspnea, fever, leukocytosis secondary to possible aspiration pneumonia, patient with a history of hiatal hernia, GERD esophagitis. CT angios showed no evidence of pulmonary embolism, but there were areas of patchy pneumonitis and mild peribronchial thickening consistent with chronic bronchitis. Patient had previously been noted to have areas of nonspecific pneumonitis/alveolitis on the CT chest from June 2017 that were liters to be related to aspiration #2. History of nonspecific pulmonary nodules noted on the CT of the chest in June 2017, eating followed on an outpatient basis #3. Hypertension, hyperlipidemia #4. Severe GERD with esophagitis, hiatal hernia #5. Obesity #6. Chronic dyspnea on exertion #7. Depression #8. Nicotine dependence, in remission, quit 5 years ago, but has smoked up to 2 packs a day for 30 years Plan: We will switch to antibiotic coverage to Levaquin and Zosyn, for possibility of aspiration related pneumonia. Continue IV steroids, continue nebulized bronchodilators, will add Pulmicort and Perforomist. GI/DVT prophylaxis, continue monitoring labs, renal profile, electrolytes, fever pattern. I performed a history & physical examination of the patient and discussed their management with my nurse practitioner, Fanta Vega. I reviewed the nurse practitioner's note and agree with the documented findings and plan of care. Lung sounds are positive for diffuse wheezes throughout the lung pittman. The findings and the impression was discussed with the patient. I attest to the documentation by the nurse practitioner. Time with Patient: Greater than 30
[2017-10-05] MEDS: LEVOFLOXACIN 750 MG TAB PO SCH (14:27)
[2017-10-05] MEDS: PIPERACILLIN-TAZOBACTAM 3.375 GM in DEXTROSE/WATER 1 50ML.BAG IVPB SCH ×2 (15:49→23:36)
[2017-10-05 16:55] LABS: Glucose,Whole Blood 130 mg/dL (75-99)
--- NOTE | 2017-10-05 18:54 | PN ---
PROGRESS NOTE DATE OF SERVICE: October 05, 2017. PRESENTING COMPLAINT: Short of breath. INTERVAL HISTORY: Patient admitted with COPD exacerbation. Still having some wheezing. Slight cough. Did tolerate a little better diet. Lying in bed. REVIEW OF SYSTEMS: Done for constitutional, cardiovascular, GI and pulmonary, relevant findings as above. CURRENT MEDICATIONS: Reviewed and include IV Solu-Medrol and DuoNeb. PHYSICAL EXAMINATION: VITAL SIGNS: Temperature 97.4, pulse 112. Respiratory 24, blood pressure 109/58. Pulse ox 98% on 5 L. GENERAL APPEARANCE: Lying in bed, tired appearing. EYES: Pupils are equal. Conjunctivae normal. HEENT: External appearance of nose and ears normal. Oral cavity normal. NECK: JVD not raised. Mass not palpable. RESPIRATORY: Effort increased. LUNGS: Decreased breath sounds, prolonged expiration and wheezing. CARDIOVASCULAR: 1st and 2nd sounds normal. No edema. ABDOMEN: Soft, nontender. Liver and spleen not palpable. PSYCHIATRY: Alert and oriented x3. Mood and affect slightly anxious-appearing. INVESTIGATIONS: Accu-Cheks are noted. ASSESSMENT: 1. Acute severe chronic obstructive pulmonary disease exacerbation in an ex-smoker, possibly acute tracheobronchitis slow to respond. 2. Gastroesophageal reflux disease. 3. Essential hypertension. 4. Primary osteoarthritis. 5. Achalasia with prior history of surgery, symptoms still persist. 6. Anxiety, depression not otherwise specified. 7. Morbid obesity BMI 45.9. PLAN: Continue current medication and treatment plan. Patient is slow to respond. I told the patient to sit up. Follow. MMODL / IJN: [id number] /
[2017-10-05] MEDS: FORMOTEROL FUMARATE 20 MCG/2 ML NEBU INHALATION SCH (19:50)
[2017-10-05] MEDS: BUDESONIDE 1 MG/2 ML NEBU INHALATION SCH (19:50)
[2017-10-05 20:33] LABS: Glucose,Whole Blood 171 mg/dL (75-99)
[2017-10-05] MEDS: methylPREDNISolone SOD SUCCI 40 MG/ML 1 ML VIAL IV SCH (23:36)
[2017-10-06] MEDS: IPRATROPIUM-ALBUTEROL 3 ML NEB INHALATION SCH ×6 (03:32→23:40)
[2017-10-06] MEDS: FORMOTEROL FUMARATE 20 MCG/2 ML NEBU INHALATION SCH ×2 (07:53→19:27)
[2017-10-06] MEDS: BUDESONIDE 1 MG/2 ML NEBU INHALATION SCH ×2 (07:53→19:27)
[2017-10-06 07:55] LABS: Glucose,Whole Blood 167 mg/dL (75-99)
[2017-10-06 08:11] LABS: Anion Gap 12 mmol/L; Blood Urea Nitrogen 29 mg/dL (7-17); Calcium 10.4 mg/dL (8.4-10.2); Carbon Dioxide 28 mmol/L (22-30); Chloride 99 mmol/L (98-107); Glucose 144 mg/dL (74-99); Potassium 4.6 mmol/L (3.5-5.1); Sodium 139 mmol/L (137-145)
[2017-10-06] MEDS: INSULIN ASPART 100 UNIT/ML 1 ML 10 ML VIAL SQ SCH ×4 (08:31→21:49)
[2017-10-06] MEDS: ENOXAPARIN 40 MG/0.4 ML SYRINGE SQ SCH (08:32)
[2017-10-06] MEDS: ATORVASTATIN 10 MG TAB PO SCH (08:32)
[2017-10-06] MEDS: methylPREDNISolone SOD SUCCI 40 MG/ML 1 ML VIAL IV SCH ×3 (08:32→23:07)
[2017-10-06] MEDS: PANTOPRAZOLE 40 MG TABLET PO SCH (08:32)
[2017-10-06] MEDS: PIPERACILLIN-TAZOBACTAM 3.375 GM in DEXTROSE/WATER 1 50ML.BAG IVPB SCH (08:32)
[2017-10-06] MEDS: MULTIVITAMINS, THERA 1 EACH TAB PO SCH (08:33)
[2017-10-06] MEDS: VENLAFAXINE HCL ER 150 MG CAP PO SCH (08:33)
[2017-10-06] MEDS: LISINOPRIL-HCTZ 20-25 MG 1 EACH TAB PO SCH (08:33)
[2017-10-06 12:29] LABS: Glucose,Whole Blood 141 mg/dL (75-99)
[2017-10-06] MEDS: LEVOFLOXACIN 750 MG TAB PO SCH (12:55)
--- NOTE | 2017-10-06 13:56 | P.PN ---
Subjective Progress Note Date: 10/06/17 Principal diagnosis: Acute hypoxic respiratory failure secondary to suspected aspiration pneumonia with a history of hiatal hernia, GERD and esophagitis Mercedes is a 52-year-old white female patient of Dr. Abreu, who presented to the emergency department on 10/04/2017 with complaints of dyspnea, chest tightness, burning in the chest with coughing, subjective fever and chills. Her symptoms started on Sunday, on Sunday she try to see her PCP, however there were no openings, and she end up going to the [facility] urgent care, she was given a nebulized treatment there, IM Depo-Medrol, and was sent home with an albuterol inhaler. Her symptoms kept progressing, she went to work on however she could hardly walk from the parking lot to the building due to her severe dyspnea. Her boss told her to go back to see the doctor, and she went to the urgent care at the [facility] at the [facility] in [place]. There she was given 3 nebulized treatments [id number], and transferred to the [facility] emergency department per EMS. He is an ex-smoker, she quit 5 years ago, but prior to that she smoked up to 2 packs a day for 30 years. She has a history of hiatal hernia, and she was seen in the pulmonary office by Dr. Lopez for preop clearance. Outpatient PFT showed FEV1 of 53%, FVC of 58%, TLC of 85% of predicted, and DLCO of 50%, and patient was diagnosed with restrictive lung disease, secondary to interstitial lung disease. Outpatient CT chest from 07/23/2017 showed subsegmental groundglass changes involving the left upper and lower lobe could be related to pneumonitis or alveolitis, large hiatal hernia, and to less than 5 mm pulmonary nodules within the right lung. Echocardiogram from 07/23/2017 showed left ventricular systolic function with an EF between 50-55%, no evidence of pulmonary hypertension, right ventricular systolic pressure of 19.6 mmHg, and mild mitral , and tricuspid regurgitation. Other medical history includes hypertension, hyperlipidemia, GERD/reflux with esophagitis, depression, obesity, insomnia, CREST syndrome. Patient states she had an extensive workup by the paper baler, in the workup for scleroderma was negative. Chest x-ray completed in the emergency department on 10/04/2017 showed pleural reaction at the left lung base improved compared the last exam from June 2017, some heart failure, hiatal hernia was again seen. CT angios was completed and showed mild peribronchial thickening, consistent with chronic bronchitis. Nonspecific scattered patchy infiltrates, consistent with pneumonitis. No pulmonary embolism. Gastric pull-through was noted with dilated esophagus. Patient was given Zithromax and Rocephin in the emergency department, and we are seeing the patient in consultation for acute bronchitis, and the possibility of aspiration pneumonia related to her history of significant GERD/reflux, hiatal hernia, and esophagitis. The patient is seen again today 10/06/2017 in follow-up on the regular medical floor. She is awake and alert in no acute distress. Resting fairly comfortably in bed. She does desaturate into the 80s when up walking without her oxygen. She is dyspneic on minimal exertion. Not quite back to her baseline. Temperature 99.0 today. Slightly tachycardic. Maintaining O2 saturations in the 90s on 2 L/m per nasal cannula. Objective - Vital Signs Vital signs: Vital Signs Temp 99.0 F 10/06/17 06:31 Pulse 92 10/06/17 12:12 Resp 24 10/06/17 06:31 BP 135/67 10/06/17 06:31 Pulse Ox 97 10/06/17 10:40 Intake & Output 10/05/17 10/06/17 10/06/17 18:59 06:59 18:59 Weight 145.15 kg Other: # Voids 3 2 - Exam - Constitutional General appearance: obese - EENT Eyes: EOMI, PERRLA ENT: NA/AT - Neck Neck: no lymphadenopathy Carotids: bilateral: upstroke normal Thyroid: bilateral: normal size - Respiratory Respiratory: bilateral: wheezing (Diffuse wheezes throughout), prolonged expiration - Cardiovascular Rhythm: regular Heart sounds: normal: S1, S2 ankle Peripheral Edema: absent: None foot Peripheral Edema: absent: None leg Peripheral Edema: absent: None dorsalis pedis Peripheral Pulses: bilateral: Normal radial pulse Peripheral Pulses: bilateral: Normal - Gastrointestinal General gastrointestinal: no organomegaly, soft, no tenderness - Neurologic Neurologic: CNII-XII intact - Musculoskeletal Musculoskeletal: gait normal, strength equal bilaterally - Psychiatric Psychiatric: A&O x's 3, appropriate affect, intact judgment & insight - Labs CBC & Chem 7: 10/04/17 16:40 10/06/17 07:11 Labs: Abnormal Lab Results - Last 24 Hours (Table) 10/05/17 10/05/17 10/06/17 Range/Units 16:52 20:32 07:11 BUN 29 H (7-17) mg/dL Glucose 144 H (74-99) mg/dL POC Glucose (mg/dL) 130 H 171 H (75-99) mg/dL Calcium 10.4 H (8.4-10.2) mg/dL 10/06/17 10/06/17 Range/Units 07:25 12:27 BUN (7-17) mg/dL Glucose (74-99) mg/dL POC Glucose (mg/dL) 167 H 141 H (75-99) mg/dL Calcium (8.4-10.2) mg/dL Assessment and Plan Assessment: Assessment: #1. Acute hypoxic respiratory failure, fever, leukocytosis secondary to possible aspiration pneumonia, patient with a history of hiatal hernia, GERD esophagitis. CT angios showed no evidence of pulmonary embolism, but there were areas of patchy pneumonitis and mild peribronchial thickening consistent with chronic bronchitis. Patient had previously been noted to have areas of nonspecific pneumonitis/alveolitis on the CT chest from June 2017 that were liters to be related to aspiration #2. History of nonspecific pulmonary nodules noted on the CT of the chest in June 2017, eating followed on an outpatient basis #3. Hypertension, hyperlipidemia #4. Severe GERD with esophagitis, hiatal hernia #5. Obesity #6. Chronic dyspnea on exertion #7. Depression #8. Nicotine dependence, in remission, quit 5 years ago, but has smoked up to 2 packs a day for 30 years Plan: The patient was seen and evaluated by Dr. Lopez. She is improved today as compared to yesterday but not quite back to her baseline. She does desaturate into the 80s on room air. We'll continue with her current treatment plan. We' ll increase her activity as tolerated. We'll continue to follow. I, the cosigning physician, performed a history & physical examination of the patient. Lungs sounds with few scattered rhonchi, end expiratory wheeze. Maintaining good O2 saturations in the 90s on 2 L/m per nasal cannula. I discussed the assessment and plan of care with my nurse practitioner, Yoselyn Henry. I attest to the above note as dictated by her.
--- NOTE | 2017-10-06 14:31 | PN ---
PROGRESS NOTE DATE OF SERVICE: 10/06/2017 PRESENTING COMPLAINT: Wheezing. INTERVAL HISTORY: Patient with COPD exacerbation. Continues to have wheezing. Cough is present. Minimal sputum. Appetite has not been good. Pretty much has been in the bed. REVIEW OF SYSTEMS: Review of systems done for constitutional, cardiovascular, GI, pulmonary; relevant findings as above. CURRENT MEDICATIONS: Current medications are reviewed that include IV Solu-Medrol, nebulized bronchodilators, inhaled Pulmicort, IV Zosyn. PHYSICAL EXAMINATION: On examination, afebrile, pulse 87, respiration 24, blood pressure 135/67, pulse ox 96% on 5 L. GENERAL APPEARANCE: Lying in bed, tired, wheezing. EYES: Pupils equal. Conjunctivae normal. HENT: External appearance of the nose and ears normal. Oral cavity normal. NECK: JVD not raised. Mass not palpable. RESPIRATORY: Effort increased. LUNGS: Decreased breath sounds. Prolonged expiration and wheezing. CARDIOVASCULAR: First and second sounds normal. No edema. ABDOMEN: Soft, nontender. Liver and spleen not palpable. PSYCHIATRY: Alert and oriented x3. Mood and affect anxious appearing. INVESTIGATIONS: Potassium 4.6. Accu-Cheks are noted. ASSESSMENT: 1. Acute severe chronic obstructive pulmonary disease exacerbation in an ex-smoker, possibly acute tracheobronchitis, slow to respond. 2. Gastroesophageal reflux disease. 3. Essential hypertension. 4. Primary osteoarthritis. 5. Achalasia with prior history of surgery, symptoms still persist. 6. Anxiety, depression not otherwise specified. 7. Morbid obesity, body mass index 45.9. 8. Hyperglycemia secondary to steroids. PLAN: Continue current medication and treatment plan. Patient definitely slow to respond. Continue with IV steroids. We will switch the patient over to oral Augmentin. Encouraged the patient to be out of bed. MMODL / IJN: [id number] /
[2017-10-06 16:59] LABS: Glucose,Whole Blood 120 mg/dL (75-99)
[2017-10-06 20:40] LABS: Glucose,Whole Blood 145 mg/dL (75-99)
[2017-10-06] MEDS: AMOXIC-POT CLAV 875-125MG 1 EACH TAB PO SCH (21:49)
[2017-10-07] MEDS: IPRATROPIUM-ALBUTEROL 3 ML NEB INHALATION SCH ×6 (03:24→23:31)
[2017-10-07] MEDS: BUDESONIDE 1 MG/2 ML NEBU INHALATION SCH ×2 (06:58→19:18)
[2017-10-07] MEDS: FORMOTEROL FUMARATE 20 MCG/2 ML NEBU INHALATION SCH ×2 (06:58→19:18)
[2017-10-07 07:41] LABS: Glucose,Whole Blood 141 mg/dL (75-99)
[2017-10-07] MEDS: INSULIN ASPART 100 UNIT/ML 1 ML 10 ML VIAL SQ SCH ×4 (08:49→21:28)
[2017-10-07] MEDS: VENLAFAXINE HCL ER 150 MG CAP PO SCH (08:50)
[2017-10-07] MEDS: ATORVASTATIN 10 MG TAB PO SCH (08:50)
[2017-10-07] MEDS: PANTOPRAZOLE 40 MG TABLET PO SCH (08:50)
[2017-10-07] MEDS: methylPREDNISolone SOD SUCCI 40 MG/ML 1 ML VIAL IV SCH ×3 (08:50→23:33)
[2017-10-07] MEDS: AMOXIC-POT CLAV 875-125MG 1 EACH TAB PO SCH ×2 (08:50→21:28)
[2017-10-07] MEDS: MULTIVITAMINS, THERA 1 EACH TAB PO SCH (08:51)
[2017-10-07] MEDS: ENOXAPARIN 40 MG/0.4 ML SYRINGE SQ SCH (08:51)
[2017-10-07] MEDS: LISINOPRIL-HCTZ 20-25 MG 1 EACH TAB PO SCH (08:52)
[2017-10-07 09:03] LABS: Anion Gap 16 mmol/L; Blood Urea Nitrogen 26 mg/dL (7-17); Calcium 10.7 mg/dL (8.4-10.2); Carbon Dioxide 26 mmol/L (22-30); Chloride 97 mmol/L (98-107); Glucose 128 mg/dL (74-99); Potassium 4.4 mmol/L (3.5-5.1); Sodium 139 mmol/L (137-145)
[2017-10-07 11:53] LABS: Glucose,Whole Blood 145 mg/dL (75-99)
[2017-10-07] MEDS: LEVOFLOXACIN 750 MG TAB PO SCH (13:22)
--- NOTE | 2017-10-07 15:48 | P.PN ---
Subjective Progress Note Date: 10/07/17 Principal diagnosis: Acute aspiration pneumonia Mercedes is a 52-year-old white female patient of Dr. Abreu, who presented to the emergency department on 10/04/2017 with complaints of dyspnea, chest tightness, burning in the chest with coughing, subjective fever and chills. Her symptoms started on Sunday, on Sunday she try to see her PCP, however there were no openings, and she end up going to the [facility] urgent care, she was given a nebulized treatment there, IM Depo-Medrol, and was sent home with an albuterol inhaler. Her symptoms kept progressing, she went to work on however she could hardly walk from the parking lot to the building due to her severe dyspnea. Her boss told her to go back to see the doctor, and she went to the urgent care at the [facility] at the [facility] in [place]. There she was given 3 nebulized treatments [id number], and transferred to the [facility] emergency department per EMS. He is an ex-smoker, she quit 5 years ago, but prior to that she smoked up to 2 packs a day for 30 years. She has a history of hiatal hernia, and she was seen in the pulmonary office by Dr. Lopez for preop clearance. Outpatient PFT showed FEV1 of 53%, FVC of 58%, TLC of 85% of predicted, and DLCO of 50%, and patient was diagnosed with restrictive lung disease, secondary to interstitial lung disease. Outpatient CT chest from 07/23/2017 showed subsegmental groundglass changes involving the left upper and lower lobe could be related to pneumonitis or alveolitis, large hiatal hernia, and to less than 5 mm pulmonary nodules within the right lung. Echocardiogram from 07/23/2017 showed left ventricular systolic function with an EF between 50-55%, no evidence of pulmonary hypertension, right ventricular systolic pressure of 19.6 mmHg, and mild mitral , and tricuspid regurgitation. Other medical history includes hypertension, hyperlipidemia, GERD/reflux with esophagitis, depression, obesity, insomnia, CREST syndrome. Patient states she had an extensive workup by the loss prevention operations manager, in the workup for scleroderma was negative. Chest x-ray completed in the emergency department on 10/04/2017 showed pleural reaction at the left lung base improved compared the last exam from June 2017, some heart failure, hiatal hernia was again seen. CT angios was completed and showed mild peribronchial thickening, consistent with chronic bronchitis. Nonspecific scattered patchy infiltrates, consistent with pneumonitis. No pulmonary embolism. Gastric pull-through was noted with dilated esophagus. Patient was given Zithromax and Rocephin in the emergency department, and we are seeing the patient in consultation for acute bronchitis, and the possibility of aspiration pneumonia related to her history of significant GERD/reflux, hiatal hernia, and esophagitis. Reevaluated today on 10/07/2017, patient is feeling better, however she continues to have intermittent episodes of cough and wheezing. Last night she had ongoing cough most of the night, I still believe the patient is having severe GERD and reflux. CT of the chest on this admission showed nonspecific patchy infiltrates consistent with pneumonitis. Objective - Vital Signs Vital signs: Vital Signs Temp 98.8 F 10/07/17 15:00 Pulse 94 10/07/17 15:33 Resp 18 10/07/17 15:00 BP 167/86 10/07/17 15:00 Pulse Ox 97 10/07/17 15:33 Intake & Output 10/06/17 10/07/17 10/07/17 18:59 06:59 18:59 Other: Voiding Method Toilet # Voids 1 1 1 - Exam - Constitutional General appearance: obese - EENT Eyes: EOMI, PERRLA ENT: NA/AT - Neck Neck: no lymphadenopathy Carotids: bilateral: upstroke normal Thyroid: bilateral: normal size - Respiratory Respiratory: bilateral: wheezing (Diffuse wheezes throughout), prolonged expiration - Cardiovascular Rhythm: regular Heart sounds: normal: S1, S2 ankle Peripheral Edema: absent: None foot Peripheral Edema: absent: None leg Peripheral Edema: absent: None dorsalis pedis Peripheral Pulses: bilateral: Normal radial pulse Peripheral Pulses: bilateral: Normal - Gastrointestinal General gastrointestinal: no organomegaly, soft, no tenderness - Neurologic Neurologic: CNII-XII intact - Musculoskeletal Musculoskeletal: gait normal, strength equal bilaterally - Psychiatric Psychiatric: A&O x's 3, appropriate affect, intact judgment & insight - Labs CBC & Chem 7: 10/04/17 16:40 10/07/17 07:47 Labs: Abnormal Lab Results - Last 24 Hours (Table) 10/06/17 10/06/17 10/07/17 Range/Units 16:57 20:38 07:31 Chloride (98-107) mmol/L BUN (7-17) mg/dL Glucose (74-99) mg/dL POC Glucose (mg/dL) 120 H 145 H 141 H (75-99) mg/dL Calcium (8.4-10.2) mg/dL 10/07/17 10/07/17 Range/Units 07:47 11:44 Chloride 97 L (98-107) mmol/L BUN 26 H (7-17) mg/dL Glucose 128 H (74-99) mg/dL POC Glucose (mg/dL) 145 H (75-99) mg/dL Calcium 10.7 H (8.4-10.2) mg/dL Assessment and Plan Assessment: #1. Dyspnea, fever, leukocytosis secondary to possible aspiration pneumonia, patient with a history of hiatal hernia, GERD esophagitis. CT angios showed no evidence of pulmonary embolism, but there were areas of patchy pneumonitis and mild peribronchial thickening consistent with chronic bronchitis. Patient had previously been noted to have areas of nonspecific pneumonitis/alveolitis on the CT chest from June 2017 that were liters to be related to aspiration #2. History of nonspecific pulmonary nodules noted on the CT of the chest in June 2017, eating followed on an outpatient basis #3. Hypertension, hyperlipidemia #4. Severe GERD with esophagitis, hiatal hernia #5. Obesity #6. Chronic dyspnea on exertion #7. Depression #8. Nicotine dependence, in remission, quit 5 years ago, but has smoked up to 2 packs a day for 30 years Plan continue present course of antibiotics, bronchodilators, IV Solu-Medrol, GI prophylaxis, ordered a chest x-ray to be done in a.m., not quite ready for discharge planning at this point. Time with Patient: Less than 30
[2017-10-07 16:45] LABS: Glucose,Whole Blood 123 mg/dL (75-99)
--- NOTE | 2017-10-07 18:53 | PN ---
PROGRESS NOTE DATE OF SERVICE: October 07, 2017. PRESENTING COMPLAINT: Wheezing. INTERVAL HISTORY: Patient admitted with COPD exacerbation. Continues to have wheezing, cough. A little sputum. Appetite still low. Significant wheezing still present. Tired. REVIEW OF SYSTEMS: Done for constitutional, cardiovascular, GI, pulmonary, relevant findings as above. CURRENT MEDICATIONS: Reviewed and include IV Solu-Medrol, nebulized bronchodilators, IV Zosyn. PHYSICAL EXAMINATION: Temperature 98.8, pulse 96, respiratory 18, blood pressure 167/86, pulse ox 95% on 2 L. GENERAL APPEARANCE: Sitting on bed, tired appearing. EYES: Pupils are equal. Conjunctivae normal. HEENT: External appearance of nose and ears normal. Oral cavity normal. NECK: JVD not raised. Mass not palpable. RESPIRATORY: Effort increased. LUNGS: Decreased breath sounds. Prolonged expiration and wheezing. CARDIOVASCULAR: 1st and 2nd sounds normal. No edema. ABDOMEN: Soft, nontender. Liver and spleen not palpable. PSYCHIATRY: Alert and oriented x3. Mood and affect normal. INVESTIGATIONS: Potassium 4.4, BUN 26, creatinine 0.76. ASSESSMENT: 1. Acute severe chronic obstructive pulmonary disease exacerbation in an ex-smoker with possible acute tracheobronchitis, slow to respond. 2. Gastroesophageal reflux disease. 3. Essential hypertension. 4. Primary osteoarthritis. 5. Achalasia with prior history of surgery, symptoms are present. 6. Anxiety and depression, not otherwise specified. 7. Morbid obesity BMI 44.9. 8. Hyperglycemia secondary to steroids. PLAN: Patient is slow to respond. Continue with bronchodilators and steroids. Care was discussed with the patient. The patient antibiotics switched over to Augmentin yesterday. The patient encouraged to be out of bed. MMODL / IJN: [id number] /
[2017-10-07 21:21] LABS: Glucose,Whole Blood 156 mg/dL (75-99)
[2017-10-08 02:05] LABS: Anion Gap 14 mmol/L; Blood Urea Nitrogen 25 mg/dL (7-17); Calcium 10.7 mg/dL (8.4-10.2); Carbon Dioxide 27 mmol/L (22-30); Chloride 96 mmol/L (98-107); Glucose 132 mg/dL (74-99); Potassium 4.3 mmol/L (3.5-5.1); Sodium 137 mmol/L (137-145)
[2017-10-08] MEDS: IPRATROPIUM-ALBUTEROL 3 ML NEB INHALATION SCH ×6 (03:12→23:39)
[2017-10-08 07:12] LABS: Glucose,Whole Blood 126 mg/dL (75-99)
[2017-10-08] MEDS: FORMOTEROL FUMARATE 20 MCG/2 ML NEBU INHALATION SCH ×2 (07:59→20:09)
[2017-10-08] MEDS: BUDESONIDE 1 MG/2 ML NEBU INHALATION SCH ×2 (07:59→20:08)
[2017-10-08] MEDS: INSULIN ASPART 100 UNIT/ML 1 ML 10 ML VIAL SQ SCH ×4 (08:13→21:55)
[2017-10-08] MEDS: ENOXAPARIN 40 MG/0.4 ML SYRINGE SQ SCH (08:14)
[2017-10-08] MEDS: AMOXIC-POT CLAV 875-125MG 1 EACH TAB PO SCH ×2 (08:14→21:55)
[2017-10-08] MEDS: PANTOPRAZOLE 40 MG TABLET PO SCH (08:14)
[2017-10-08] MEDS: methylPREDNISolone SOD SUCCI 40 MG/ML 1 ML VIAL IV SCH (08:14)
[2017-10-08] MEDS: ATORVASTATIN 10 MG TAB PO SCH (08:14)
[2017-10-08] MEDS: VENLAFAXINE HCL ER 150 MG CAP PO SCH (08:15)
[2017-10-08] MEDS: LISINOPRIL-HCTZ 20-25 MG 1 EACH TAB PO SCH (08:15)
--- NOTE | 2017-10-08 08:18 | XR ---
EXAMINATION TYPE: XR chest 2V DATE OF EXAM: 10/08/2017 COMPARISON: 10/04/2017 TECHNIQUE: PA and lateral views submitted. HISTORY: Shortness of breath FINDINGS: There is subsegmental consolidation at the left lung base.. Linear changes at the right lung base. In terstitium stable. No pneumothorax. Heart size stable. IMPRESSION: 1. Bibasilar subsegmental consolidation greater on the left correlate for infiltrate.
[2017-10-08] MEDS: MULTIVITAMINS, THERA 1 EACH TAB PO SCH (11:31)
[2017-10-08] MEDS: methylPREDNISolone SOD SUCCI 125 MG/2 ML VIAL IV SCH ×3 (11:31→22:37)
[2017-10-08 11:58] LABS: Glucose,Whole Blood 163 mg/dL (75-99)
--- NOTE | 2017-10-08 12:57 | P.PN ---
Subjective Progress Note Date: 10/08/17 Principal diagnosis: Aspiration pneumonia. Mercedes is a 52-year-old white female patient of Dr. Abreu, who presented to the emergency department on 10/04/2017 with complaints of dyspnea, chest tightness, burning in the chest with coughing, subjective fever and chills. Her symptoms started on Sunday, on Sunday she try to see her PCP, however there were no openings, and she end up going to the [facility] urgent care, she was given a nebulized treatment there, IM Depo-Medrol, and was sent home with an albuterol inhaler. Her symptoms kept progressing, she went to work on however she could hardly walk from the parking lot to the building due to her severe dyspnea. Her boss told her to go back to see the doctor, and she went to the urgent care at the [facility] (formerly [facility]) at the [facility] in [place]. There she was given 3 nebulized treatments [id number], and transferred to the [facility] emergency department per EMS. He is an ex-smoker, she quit 5 years ago, but prior to that she smoked up to 2 packs a day for 30 years. She has a history of hiatal hernia, and she was seen in the pulmonary office by Dr. Lopez for preop clearance. Outpatient PFT showed FEV1 of 53%, FVC of 58%, TLC of 85% of predicted, and DLCO of 50%, and patient was diagnosed with restrictive lung disease, secondary to interstitial lung disease. Outpatient CT chest from 07/23/2017 showed subsegmental groundglass changes involving the left upper and lower lobe could be related to pneumonitis or alveolitis, large hiatal hernia, and to less than 5 mm pulmonary nodules within the right lung. Echocardiogram from 07/23/2017 showed left ventricular systolic function with an EF between 50-55%, no evidence of pulmonary hypertension, right ventricular systolic pressure of 19.6 mmHg, and mild mitral , and tricuspid regurgitation. Other medical history includes hypertension, hyperlipidemia, GERD/reflux with esophagitis, depression, obesity, insomnia, CREST syndrome. Patient states she had an extensive workup by the laborer tree tapping, in the workup for scleroderma was negative. Chest x-ray completed in the emergency department on 10/04/2017 showed pleural reaction at the left lung base improved compared the last exam from June 2017, some heart failure, hiatal hernia was again seen. CT angios was completed and showed mild peribronchial thickening, consistent with chronic bronchitis. Nonspecific scattered patchy infiltrates, consistent with pneumonitis. No pulmonary embolism. Gastric pull-through was noted with dilated esophagus. Patient was given Zithromax and Rocephin in the emergency department, and we are seeing the patient in consultation for acute bronchitis, and the possibility of aspiration pneumonia related to her history of significant GERD/reflux, hiatal hernia, and esophagitis. Reevaluated today on 10/07/2017, patient is feeling better, however she continues to have intermittent episodes of cough and wheezing. Last night she had ongoing cough most of the night, I still believe the patient is having severe GERD and reflux. CT of the chest on this admission showed nonspecific patchy infiltrates consistent with pneumonitis. Patient is seen and evaluated again on 10/08/2017. Still remains bronchospastic , less short of breath. Lung sounds are positive for scattered wheezes. Room air pulse ox 694%, patient is afebrile, vital signs are stable. His chest x- ray has been reviewed by Dr. Sandoval and shows bibasilar subsegmental consolidation greater on the left. Patient remains on a combination of Levaquin , and Zosyn has been switched to oral Augmentin. Continue with current plan of treatment, will increase the IV Solu-Medrol back to 60 mg every 6 hours, we'll give the patient's on 48 hours of medical treatment, as no improvement, will consider bronchoscopy. Objective - Vital Signs Vital signs: Vital Signs Temp 97.9 F 10/08/17 06:05 Pulse 84 10/08/17 12:12 Resp 20 10/08/17 06:05 BP 107/67 10/08/17 06:05 Pulse Ox 94 L 10/08/17 12:01 Intake & Output 10/07/17 10/08/17 10/08/17 18:59 06:59 18:59 Intake Total 100 240 Balance 100 240 Intake: Oral 100 240 Other: Voiding Method Toilet # Voids 1 1 - Exam - Constitutional General appearance: obese - EENT Eyes: EOMI, PERRLA ENT: NA/AT - Neck Neck: no lymphadenopathy Carotids: bilateral: upstroke normal Thyroid: bilateral: normal size - Respiratory Respiratory: bilateral: wheezing (Diffuse wheezes throughout), prolonged expiration - Cardiovascular Rhythm: regular Heart sounds: normal: S1, S2 ankle Peripheral Edema: absent: None foot Peripheral Edema: absent: None leg Peripheral Edema: absent: None dorsalis pedis Peripheral Pulses: bilateral: Normal radial pulse Peripheral Pulses: bilateral: Normal - Gastrointestinal General gastrointestinal: no organomegaly, soft, no tenderness - Neurologic Neurologic: CNII-XII intact - Musculoskeletal Musculoskeletal: gait normal, strength equal bilaterally - Psychiatric Psychiatric: A&O x's 3, appropriate affect, intact judgment & insight - Labs CBC & Chem 7: 10/04/17 16:40 10/08/17 01:32 Labs: Abnormal Lab Results - Last 24 Hours (Table) 10/07/17 10/07/17 10/08/17 Range/Units 16:43 21:13 01:32 Chloride 96 L (98-107) mmol/L BUN 25 H (7-17) mg/dL Glucose 132 H (74-99) mg/dL POC Glucose (mg/dL) 123 H 156 H (75-99) mg/dL Calcium 10.7 H (8.4-10.2) mg/dL 10/08/17 10/08/17 Range/Units 07:07 11:57 Chloride (98-107) mmol/L BUN (7-17) mg/dL Glucose (74-99) mg/dL POC Glucose (mg/dL) 126 H 163 H (75-99) mg/dL Calcium (8.4-10.2) mg/dL Assessment and Plan Plan: Assessment: #1. Dyspnea, fever, leukocytosis secondary to possible aspiration pneumonia, patient with a history of hiatal hernia, GERD esophagitis. CT angios showed no evidence of pulmonary embolism, but there were areas of patchy pneumonitis and mild peribronchial thickening consistent with chronic bronchitis. Patient had previously been noted to have areas of nonspecific pneumonitis/alveolitis on the CT chest from June 2017 that were liters to be related to aspiration #2. History of nonspecific pulmonary nodules noted on the CT of the chest in June 2017, eating followed on an outpatient basis #3. Hypertension, hyperlipidemia #4. Severe GERD with esophagitis, hiatal hernia #5. Obesity #6. Chronic dyspnea on exertion #7. Depression #8. Nicotine dependence, in remission, quit 5 years ago, but has smoked up to 2 packs a day for 30 years Plan: Continue current plan of treatment, continue current antibiotic coverage, Augmentin and Levaquin, we'll increase the Solu-Medrol to 60 mg every 6 hours, continue nebulized bronchodilators, we will give the patient another 48 hours of medical treatment. We'll consider bronchoscopy if there is no improvement. Overall remains stable, and is making slow improvement I performed a history & physical examination of the patient and discussed their management with my nurse practitioner, Fanta Vega. I reviewed the nurse practitioner's note and agree with the documented findings and plan of care. Lung sounds are positive for diffuse wheezes throughout the lung pittman. The findings and the impression was discussed with the patient. I attest to the documentation by the nurse practitioner. Time with Patient: Less than 30
[2017-10-08] MEDS: LEVOFLOXACIN 750 MG TAB PO SCH (14:35)
[2017-10-08 17:16] LABS: Glucose,Whole Blood 138 mg/dL (75-99)
[2017-10-08 21:33] LABS: Glucose,Whole Blood 183 mg/dL (75-99)
[2017-10-09] MEDS: IPRATROPIUM-ALBUTEROL 3 ML NEB INHALATION SCH ×6 (04:01→23:20)
[2017-10-09] MEDS: methylPREDNISolone SOD SUCCI 125 MG/2 ML VIAL IV SCH ×4 (06:06→22:59)
[2017-10-09] MEDS: FORMOTEROL FUMARATE 20 MCG/2 ML NEBU INHALATION SCH ×2 (07:15→19:18)
[2017-10-09] MEDS: BUDESONIDE 1 MG/2 ML NEBU INHALATION SCH ×2 (07:15→19:18)
[2017-10-09 07:16] LABS: Glucose,Whole Blood 148 mg/dL (75-99)
[2017-10-09] MEDS: INSULIN ASPART 100 UNIT/ML 1 ML 10 ML VIAL SQ SCH ×4 (08:01→21:17)
[2017-10-09] MEDS: LISINOPRIL-HCTZ 20-25 MG 1 EACH TAB PO SCH (08:02)
[2017-10-09] MEDS: VENLAFAXINE HCL ER 150 MG CAP PO SCH (08:02)
[2017-10-09] MEDS: AMOXIC-POT CLAV 875-125MG 1 EACH TAB PO SCH ×2 (08:02→21:17)
[2017-10-09] MEDS: ATORVASTATIN 10 MG TAB PO SCH (08:02)
[2017-10-09] MEDS: PANTOPRAZOLE 40 MG TABLET PO SCH (08:02)
[2017-10-09] MEDS: ENOXAPARIN 40 MG/0.4 ML SYRINGE SQ SCH (08:02)
[2017-10-09 10:35] LABS: Anion Gap 13 mmol/L; Blood Urea Nitrogen 34 mg/dL (7-17); Calcium 10.6 mg/dL (8.4-10.2); Carbon Dioxide 26 mmol/L (22-30); Chloride 96 mmol/L (98-107); Glucose 195 mg/dL (74-99); Potassium 4.4 mmol/L (3.5-5.1); Sodium 135 mmol/L (137-145)
[2017-10-09] MEDS: MULTIVITAMINS, THERA 1 EACH TAB PO SCH (11:24)
[2017-10-09 11:38] LABS: Glucose,Whole Blood 154 mg/dL (75-99)
--- NOTE | 2017-10-09 12:02 | P.PN ---
Subjective Progress Note Date: 10/09/17 Principal diagnosis: Aspiration pneumonia. Mercedes is a 52-year-old white female patient of Dr. Abreu, who presented to the emergency department on 10/04/2017 with complaints of dyspnea, chest tightness, burning in the chest with coughing, subjective fever and chills. Her symptoms started on Sunday, on Sunday she try to see her PCP, however there were no openings, and she end up going to the [facility] urgent care, she was given a nebulized treatment there, IM Depo-Medrol, and was sent home with an albuterol inhaler. Her symptoms kept progressing, she went to work on however she could hardly walk from the parking lot to the building due to her severe dyspnea. Her boss told her to go back to see the doctor, and she went to the urgent care at the [facility] at the [facility] in [place]. There she was given 3 nebulized treatments [id number], and transferred to the [facility] emergency department per EMS. He is an ex-smoker, she quit 5 years ago, but prior to that she smoked up to 2 packs a day for 30 years. She has a history of hiatal hernia, and she was seen in the pulmonary office by Dr. Lopez for preop clearance. Outpatient PFT showed FEV1 of 53%, FVC of 58%, TLC of 85% of predicted, and DLCO of 50%, and patient was diagnosed with restrictive lung disease, secondary to interstitial lung disease. Outpatient CT chest from 07/23/2017 showed subsegmental groundglass changes involving the left upper and lower lobe could be related to pneumonitis or alveolitis, large hiatal hernia, and to less than 5 mm pulmonary nodules within the right lung. Echocardiogram from 07/23/2017 showed left ventricular systolic function with an EF between 50-55%, no evidence of pulmonary hypertension, right ventricular systolic pressure of 19.6 mmHg, and mild mitral , and tricuspid regurgitation. Other medical history includes hypertension, hyperlipidemia, GERD/reflux with esophagitis, depression, obesity, insomnia, CREST syndrome. Patient states she had an extensive workup by the telex operator, in the workup for scleroderma was negative. Chest x-ray completed in the emergency department on 10/04/2017 showed pleural reaction at the left lung base improved compared the last exam from June 2017, some heart failure, hiatal hernia was again seen. CT angios was completed and showed mild peribronchial thickening, consistent with chronic bronchitis. Nonspecific scattered patchy infiltrates, consistent with pneumonitis. No pulmonary embolism. Gastric pull-through was noted with dilated esophagus. Patient was given Zithromax and Rocephin in the emergency department, and we are seeing the patient in consultation for acute bronchitis, and the possibility of aspiration pneumonia related to her history of significant GERD/reflux, hiatal hernia, and esophagitis. Reevaluated today on 10/07/2017, patient is feeling better, however she continues to have intermittent episodes of cough and wheezing. Last night she had ongoing cough most of the night, I still believe the patient is having severe GERD and reflux. CT of the chest on this admission showed nonspecific patchy infiltrates consistent with pneumonitis. Patient is seen and evaluated again on 10/08/2017. Still remains bronchospastic , less short of breath. Lung sounds are positive for scattered wheezes. Room air pulse ox 694%, patient is afebrile, vital signs are stable. His chest x- ray has been reviewed by Dr. Sandoval and shows bibasilar subsegmental consolidation greater on the left. Patient remains on a combination of Levaquin , and Zosyn has been switched to oral Augmentin. Continue with current plan of treatment, will increase the IV Solu-Medrol back to 60 mg every 6 hours, we'll give the patient's on 48 hours of medical treatment, as no improvement, will consider bronchoscopy. On 10/09/2017 patient seen again on medical surgical floor. She is awake, alert , remains dyspneic with any exertion, bronchospastic. Lung sounds are positive for diffuse wheezes, and occasionally patient is able to bring up some yellow phlegm, but mostly time her cough was nonproductive. She complains of chest tightness, and shortness of breath. Afebrile, pulse ox is 92%. Patient has been maximizing medical treatment, and has made limited improvement, continues on empiric antibiotics in the form of Augmentin, and Levaquin. Patient will be scheduled for bronchoscopy with BAL by Dr. Dr. Sandoval tomorrow on 10/10/2017 at 1 PM. The risks and benefits of procedure were discussed with the patient, and the patient is in agreement Objective - Vital Signs Vital signs: Vital Signs Temp 98.0 F 10/09/17 05:50 Pulse 92 10/09/17 11:24 Resp 20 10/09/17 05:50 BP 148/81 10/09/17 05:50 Pulse Ox 92 L 10/09/17 05:50 Intake & Output 10/08/17 10/09/17 10/09/17 18:59 06:59 18:59 Intake Total 720 1200 240 Balance 720 1200 240 Weight 145.15 kg Intake: Oral 720 1200 240 Other: Voiding Method Toilet Toilet # Voids 2 2 1 # Bowel Movements 0 - Exam - Constitutional General appearance: obese - EENT Eyes: EOMI, PERRLA ENT: NA/AT - Neck Neck: no lymphadenopathy Carotids: bilateral: upstroke normal Thyroid: bilateral: normal size - Respiratory Respiratory: bilateral: wheezing (Diffuse wheezes throughout), prolonged expiration - Cardiovascular Rhythm: regular Heart sounds: normal: S1, S2 ankle Peripheral Edema: absent: None foot Peripheral Edema: absent: None leg Peripheral Edema: absent: None dorsalis pedis Peripheral Pulses: bilateral: Normal radial pulse Peripheral Pulses: bilateral: Normal - Gastrointestinal General gastrointestinal: no organomegaly, soft, no tenderness - Neurologic Neurologic: CNII-XII intact - Musculoskeletal Musculoskeletal: gait normal, strength equal bilaterally - Psychiatric Psychiatric: A&O x's 3, appropriate affect, intact judgment & insight - Labs CBC & Chem 7: 10/04/17 16:40 10/09/17 09:30 Labs: Abnormal Lab Results - Last 24 Hours (Table) 10/08/17 10/08/17 10/08/17 Range/Units 11:57 17:14 21:29 Sodium (137-145) mmol/L Chloride (98-107) mmol/L BUN (7-17) mg/dL Glucose (74-99) mg/dL POC Glucose (mg/dL) 163 H 138 H 183 H (75-99) mg/dL Calcium (8.4-10.2) mg/dL 10/09/17 10/09/17 10/09/17 Range/Units 07:15 09:30 11:33 Sodium 135 L (137-145) mmol/L Chloride 96 L (98-107) mmol/L BUN 34 H (7-17) mg/dL Glucose 195 H (74-99) mg/dL POC Glucose (mg/dL) 148 H 154 H (75-99) mg/dL Calcium 10.6 H (8.4-10.2) mg/dL Assessment and Plan Plan: Assessment: #1. Dyspnea, fever, leukocytosis secondary to possible aspiration pneumonia, patient with a history of hiatal hernia, GERD esophagitis. CT angios showed no evidence of pulmonary embolism, but there were areas of patchy pneumonitis and mild peribronchial thickening consistent with chronic bronchitis. Patient had previously been noted to have areas of nonspecific pneumonitis/alveolitis on the CT chest from June 2017 that were liters to be related to aspiration #2. History of nonspecific pulmonary nodules noted on the CT of the chest in June 2017, eating followed on an outpatient basis #3. Hypertension, hyperlipidemia #4. Severe GERD with esophagitis, hiatal hernia #5. Obesity #6. Chronic dyspnea on exertion #7. Depression #8. Nicotine dependence, in remission, quit 5 years ago, but has smoked up to 2 packs a day for 30 years Plan: Continue current antibiotic coverage, continue IV steroids, and nebulized bronchodilators, we will schedule the patient will bronchial BAL tomorrow on at 1 PM. The risks and benefits of the procedure were discussed with the patient, and the patient is in agreement to proceed. I performed a history & physical examination of the patient and discussed their management with my nurse practitioner, Fanta Vega. I reviewed the nurse practitioner's note and agree with the documented findings and plan of care. Lung sounds are positive for diffuse wheezes throughout the lung pittman. The findings and the impression was discussed with the patient. I attest to the documentation by the nurse practitioner. Time with Patient: Less than 30
[2017-10-09] MEDS: LEVOFLOXACIN 750 MG TAB PO SCH (12:24)
[2017-10-09 17:05] LABS: Glucose,Whole Blood 151 mg/dL (75-99)
[2017-10-09 20:32] LABS: Glucose,Whole Blood 193 mg/dL (75-99)
--- NOTE | 2017-10-09 21:04 | PN ---
PROGRESS NOTE DATE OF SERVICE: October 08, 2017. PRESENTING COMPLAINT: Wheezing. INTERVAL HISTORY: The patient was seen by me yesterday. Presents with COPD exacerbation. Continues to be congested, wheezing. Appetite still remain sluggish. Pretty much has been in bed though did get to the bathroom, tired, run down. REVIEW OF SYSTEMS: Done for constitutional, cardiovascular, GI, pulmonary; relevant findings above. CURRENT MEDICATIONS: Reviewed that include bronchodilators, IV steroids, IV Zosyn. PHYSICAL EXAMINATION: Temperature 98.1, pulse 124, respiration 22, blood pressure 126/86, pulse ox 92% on room air. GENERAL APPEARANCE: Propped up in bed, short of breath at rest. EYES : Pupils equal. Conjunctivae normal. HEENT: External appearance of nose and ears normal. Oral cavity normal. NECK: JVD not raised. Mass not palpable. RESPIRATORY: Effort increased. LUNGS: Decreased breath sounds. Prolonged expiration, wheezing. Remains short of breath and not able to speak in full sentences. CARDIOVASCULAR: 1st and 2nd sounds normal. No edema. ABDOMEN: Soft, nontender. Liver and spleen not palpable. PSYCHIATRY: Alert and oriented x3. Mood and affect normal. INVESTIGATIONS: Potassium 4.3, BUN 25, creatinine 0.80. Accu-Cheks are noted. ASSESSMENT: 1. Acute severe chronic obstructive pulmonary disease exacerbation, acute smoker, acute tracheobronchitis slow to respond. The patient will need bronchoscopy with lavage. 2. Gastroesophageal reflux disease. 3. Essential hypertension. 4. Primary osteoarthritis. 5. Achalasia with prior history of surgery. Symptoms are still present. 6. Anxiety, depression, not otherwise specified. 7. Morbid obesity BMI 44.9. 8. Hyperglycemia steroids. PLAN: Spoke to Dr. Sandoval, suggesting bronchoscopy with lavage. In the meantime, continue current medication and treatment plan. Care was discussed with the patient. MMODL / IJN: [id number] /
--- NOTE | 2017-10-09 21:04 | PN ---
PROGRESS NOTE DATE OF SERVICE: October 09, 2017 PRESENTING COMPLAINT: Wheezing. INTERVAL HISTORY: Patient presented with COPD exacerbation. Continues to have wheeze, cough, shortness of breath, tired, run down, not eating too well. REVIEW OF SYSTEMS: Done for constitutional, cardiovascular, GI, pulmonary; relevant findings above. CURRENT MEDICATIONS: Reviewed include IV Solu-Medrol, nebulized bronchodilators, Augmentin. PHYSICAL EXAMINATION: VITAL SIGNS: On examination, afebrile, pulse 113, respiration 20, blood pressure 126/75, pulse ox 94% on room air. GENERAL APPEARANCE: Sitting up, short of breath, tired. EYES: Pupils equal. Conjunctivae normal. HEENT external appearance of nose and ears normal. Oral cavity normal. NECK: JVD not raised. Mass not palpable. RESPIRATORY: Effort increased. Unable to speak in full sentences, starts coughing and wheezing right away. LUNGS: Decreased breath sounds. Prolonged expiration. Expiratory wheezing. Some expiratory crackles. CARDIOVASCULAR: 1st and 2nd sounds normal. No edema. ABDOMEN: Soft, nontender. Liver and spleen not palpable. PSYCHIATRY: Alert and oriented times three. Mood and affect anxious-appearing. INVESTIGATIONS: Potassium 4.4, Accu-Cheks are noted 195, 154, 151. ASSESSMENT: 1. Acute severe chronic obstructive pulmonary disease exacerbation in an ex-smoker. Possible acute tracheobronchitis not responding to the current treatment. Will need bronchoscopy with lavage. 2. Gastroesophageal reflux disease. 3. Essential hypertension. 4. Primary osteoarthritis. 5. Achalasia with a prior history of surgery, symptoms still present. 6. Anxiety, depression, not otherwise specified. 7. Morbid obesity BMI 44.9. 8. Hypoglycemia steroids. PLAN: Spoke to Dr. Sandoval again today. He will be proceeding with a bronchoscopy lavage tomorrow. In the meantime, continue medication and treatment plan. Supportive care. Follow. MMODL / IJN: [id number] /
[2017-10-10] MEDS: IPRATROPIUM-ALBUTEROL 3 ML NEB INHALATION SCH ×6 (04:23→23:44)
[2017-10-10] MEDS ORDERED: DEXAMETHASONE SOD PHOSPHATE 10 MG/ML 1 ML VIAL IV ONE (05:12)
[2017-10-10] MEDS ORDERED: SCOPOLAMINE 1.5MG/72HR PATCH TRANSDERM ONE (05:12)
[2017-10-10] MEDS ORDERED: LIDOCAINE 1% 20 ML VIAL (10MG/ML) FOR IV START INTRADERMA PRN (05:12)
[2017-10-10] MEDS ORDERED: MIDAZOLAM 2 MG/2 ML VIAL IV PRN (05:12)
[2017-10-10] MEDS: methylPREDNISolone SOD SUCCI 125 MG/2 ML VIAL IV SCH ×3 (05:59→17:21)
[2017-10-10] MEDS: LACTATED RINGERS 1,000 ML IV SCH (06:00)
[2017-10-10 07:07] LABS: Glucose,Whole Blood 160 mg/dL (75-99)
[2017-10-10] MEDS: ATORVASTATIN 10 MG TAB PO SCH (07:48)
[2017-10-10] MEDS: ENOXAPARIN 40 MG/0.4 ML SYRINGE SQ SCH (07:49)
[2017-10-10] MEDS: LISINOPRIL-HCTZ 20-25 MG 1 EACH TAB PO SCH (07:56)
[2017-10-10] MEDS: AMOXIC-POT CLAV 875-125MG 1 EACH TAB PO SCH ×2 (07:56→21:50)
[2017-10-10] MEDS: PANTOPRAZOLE 40 MG TABLET PO SCH (07:56)
[2017-10-10] MEDS: VENLAFAXINE HCL ER 150 MG CAP PO SCH (07:57)
[2017-10-10] MEDS: FORMOTEROL FUMARATE 20 MCG/2 ML NEBU INHALATION SCH ×2 (07:57→19:27)
[2017-10-10] MEDS: INSULIN ASPART 100 UNIT/ML 1 ML 10 ML VIAL SQ SCH ×4 (07:57→21:48)
[2017-10-10] MEDS: BUDESONIDE 1 MG/2 ML NEBU INHALATION SCH ×2 (07:57→19:27)
[2017-10-10] MEDS: MULTIVITAMINS, THERA 1 EACH TAB PO SCH (11:14)
--- NOTE | 2017-10-10 11:26 | P.PN ---
Subjective Progress Note Date: 10/10/17 Principal diagnosis: Aspiration pneumonia. Mercedes is a 52-year-old white female patient of Dr. Abreu, who presented to the emergency department on 10/04/2017 with complaints of dyspnea, chest tightness, burning in the chest with coughing, subjective fever and chills. Her symptoms started on Sunday, on Sunday she try to see her PCP, however there were no openings, and she end up going to the [facility] urgent care, she was given a nebulized treatment there, IM Depo-Medrol, and was sent home with an albuterol inhaler. Her symptoms kept progressing, she went to work on however she could hardly walk from the parking lot to the building due to her severe dyspnea. Her boss told her to go back to see the doctor, and she went to the urgent care at the [facility] at the [facility] in [place]. There she was given 3 nebulized treatments [id number], and transferred to the [facility] emergency department per EMS. He is an ex-smoker, she quit 5 years ago, but prior to that she smoked up to 2 packs a day for 30 years. She has a history of hiatal hernia, and she was seen in the pulmonary office by Dr. Lopez for preop clearance. Outpatient PFT showed FEV1 of 53%, FVC of 58%, TLC of 85% of predicted, and DLCO of 50%, and patient was diagnosed with restrictive lung disease, secondary to interstitial lung disease. Outpatient CT chest from 07/23/2017 showed subsegmental groundglass changes involving the left upper and lower lobe could be related to pneumonitis or alveolitis, large hiatal hernia, and to less than 5 mm pulmonary nodules within the right lung. Echocardiogram from 07/23/2017 showed left ventricular systolic function with an EF between 50-55%, no evidence of pulmonary hypertension, right ventricular systolic pressure of 19.6 mmHg, and mild mitral , and tricuspid regurgitation. Other medical history includes hypertension, hyperlipidemia, GERD/reflux with esophagitis, depression, obesity, insomnia, CREST syndrome. Patient states she had an extensive workup by the supervisor roving department, in the workup for scleroderma was negative. Chest x-ray completed in the emergency department on 10/04/2017 showed pleural reaction at the left lung base improved compared the last exam from June 2017, some heart failure, hiatal hernia was again seen. CT angios was completed and showed mild peribronchial thickening, consistent with chronic bronchitis. Nonspecific scattered patchy infiltrates, consistent with pneumonitis. No pulmonary embolism. Gastric pull-through was noted with dilated esophagus. Patient was given Zithromax and Rocephin in the emergency department, and we are seeing the patient in consultation for acute bronchitis, and the possibility of aspiration pneumonia related to her history of significant GERD/reflux, hiatal hernia, and esophagitis. Reevaluated today on 10/07/2017, patient is feeling better, however she continues to have intermittent episodes of cough and wheezing. Last night she had ongoing cough most of the night, I still believe the patient is having severe GERD and reflux. CT of the chest on this admission showed nonspecific patchy infiltrates consistent with pneumonitis. Patient is seen and evaluated again on 10/08/2017. Still remains bronchospastic , less short of breath. Lung sounds are positive for scattered wheezes. Room air pulse ox 694%, patient is afebrile, vital signs are stable. His chest x- ray has been reviewed by Dr. Sandoval and shows bibasilar subsegmental consolidation greater on the left. Patient remains on a combination of Levaquin , and Zosyn has been switched to oral Augmentin. Continue with current plan of treatment, will increase the IV Solu-Medrol back to 60 mg every 6 hours, we'll give the patient's on 48 hours of medical treatment, as no improvement, will consider bronchoscopy. On 10/09/2017 patient seen again on medical surgical floor. She is awake, alert , remains dyspneic with any exertion, bronchospastic. Lung sounds are positive for diffuse wheezes, and occasionally patient is able to bring up some yellow phlegm, but mostly time her cough was nonproductive. She complains of chest tightness, and shortness of breath. Afebrile, pulse ox is 92%. Patient has been maximizing medical treatment, and has made limited improvement, continues on empiric antibiotics in the form of Augmentin, and Levaquin. Patient will be scheduled for bronchoscopy with BAL by Dr. Dr. Sandoval tomorrow on 10/10/2017 at 1 PM. The risks and benefits of procedure were discussed with the patient, and the patient is in agreement. On 10/10/2017 patient seen again in medical surgical floor. Remains bronchospastic, and wheezy. Still unable to bring up any phlegm. Room air pulse ox is 94%, signs are stable. Patient remains on maximum medical treatment , with IV steroids, nebulized bronchodilators, and Augmentin and Levaquin. Patient is booked for bronchoscopy with BAL today Dr. Dr. Sandoval. Has been nothing by mouth for the procedure. Objective - Vital Signs Vital signs: Vital Signs Temp 98.5 F 10/10/17 06:28 Pulse 104 H 10/10/17 08:14 Resp 20 10/10/17 06:28 BP 128/72 10/10/17 06:28 Pulse Ox 94 L 10/10/17 06:28 Intake & Output 10/09/17 10/10/17 10/10/17 18:59 06:59 18:59 Intake Total 960 600 Balance 960 600 Intake: Oral 960 600 Other: Voiding Method Toilet Toilet # Voids 3 3 2 # Bowel Movements 0 - Exam - Constitutional General appearance: obese - EENT Eyes: EOMI, PERRLA ENT: NA/AT - Neck Neck: no lymphadenopathy Carotids: bilateral: upstroke normal Thyroid: bilateral: normal size - Respiratory Respiratory: bilateral: wheezing (Diffuse wheezes throughout), prolonged expiration - Cardiovascular Rhythm: regular Heart sounds: normal: S1, S2 ankle Peripheral Edema: absent: None foot Peripheral Edema: absent: None leg Peripheral Edema: absent: None dorsalis pedis Peripheral Pulses: bilateral: Normal radial pulse Peripheral Pulses: bilateral: Normal - Gastrointestinal General gastrointestinal: no organomegaly, soft, no tenderness - Neurologic Neurologic: CNII-XII intact - Musculoskeletal Musculoskeletal: gait normal, strength equal bilaterally - Psychiatric Psychiatric: A&O x's 3, appropriate affect, intact judgment & insight - Labs CBC & Chem 7: 10/04/17 16:40 10/09/17 09:30 Labs: Abnormal Lab Results - Last 24 Hours (Table) 10/09/17 10/09/17 10/09/17 Range/Units 11:33 17:02 20:29 POC Glucose (mg/dL) 154 H 151 H 193 H (75-99) mg/dL 10/10/17 Range/Units 07:02 POC Glucose (mg/dL) 160 H (75-99) mg/dL Assessment and Plan Plan: Assessment: #1. Dyspnea, fever, leukocytosis secondary to possible aspiration pneumonia, patient with a history of hiatal hernia, GERD esophagitis. CT angios showed no evidence of pulmonary embolism, but there were areas of patchy pneumonitis and mild peribronchial thickening consistent with chronic bronchitis. Patient had previously been noted to have areas of nonspecific pneumonitis/alveolitis on the CT chest from June 2017 that were liters to be related to aspiration #2. History of nonspecific pulmonary nodules noted on the CT of the chest in June 2017, eating followed on an outpatient basis #3. Hypertension, hyperlipidemia #4. Severe GERD with esophagitis, hiatal hernia #5. Obesity #6. Chronic dyspnea on exertion #7. Depression #8. Nicotine dependence, in remission, quit 5 years ago, but has smoked up to 2 packs a day for 30 years Plan: Continue current medical treatment, continue IV steroids, antibiotics, nebulized bronchodilators, patient is scheduled for bronchoscopy with BAL at [address] Sandoval. I performed a history & physical examination of the patient and discussed their management with my nurse practitioner, Fanta Vega. I reviewed the nurse practitioner's note and agree with the documented findings and plan of care. Lung sounds are positive for diffuse wheezes throughout the lung p[place]. The findings and the impression was discussed with the patient. I attest to the documentation by the nurse practitioner. Time with Patient: Less than 30
[2017-10-10 11:34] LABS: Glucose,Whole Blood 153 mg/dL (75-99)
[2017-10-10] MEDS: LEVOFLOXACIN 750 MG TAB PO SCH (13:32)
[2017-10-10] MEDS ORDERED: PROPOFOL 10 MG/ML 20 ML VIAL IV ONE (14:09)
[2017-10-10] MEDS ORDERED: IV FLUID CONTINUATION 1,000 ML IV ONE (14:14)
[2017-10-10] MEDS ORDERED: LIDOCAINE 2% INJ 20 MG/ML INTRATRACH ONE (14:23)
[2017-10-10 17:09] LABS: Glucose,Whole Blood 196 mg/dL (75-99)
--- NOTE | 2017-10-10 18:53 | PN ---
PROGRESS NOTE DATE OF SERVICE: 10/10/2017. PRESENTING COMPLAINT: Wheezing, short of breath. INTERVAL HISTORY: Patient with COPD exacerbation. Continues to have wheezing, cough, rattliness in the chest. Due for a bronchoscopy with lavage this afternoon. Lying in bed, tired, run down. REVIEW OF SYSTEMS: Done for constitutional, cardiovascular, GI, pulmonary; relevant findings as above. CURRENT MEDICATIONS: Reviewed, include DuoNeb, IV Solu-Medrol, Augmentin. PHYSICAL EXAMINATION: Temperature 97.2, pulse 98, respirations 20, blood pressure 120/72, pulse 94% on room air. GENERAL APPEARANCE: Lying in bed, tired appearing. EYES: Pupils equal. Conjunctivae normal. HEENT: External appearance of nose and ears normal. Oral cavity normal. NECK: JVD not raised. Mass not palpable. Respiratory effort increased. LUNGS: Decreased breath sounds, not able to speak in full sentences. Prolonged expiration. Expiratory wheezing. CARDIOVASCULAR: 1st and 2nd sounds. No edema. ABDOMEN: Soft, nontender. Liver and spleen not palpable. PSYCHIATRY: Alert and oriented x3. Mood and affect anxious appearing. INVESTIGATIONS: Accu-Cheks are noted. ASSESSMENT: 1. Acute severe chronic obstructive pulmonary disease exacerbation in an ex-smoker, possibly acute tracheobronchitis, not responding. Awaiting bronchoscopy lavage. 2. Gastroesophageal reflux disease. 3. Essential hypertension. 4. Primary osteoarthritis. 5. Achalasia with prior history of surgery, symptoms still persisting. 6. Anxiety and depression, not otherwise specified. 7. Morbid obesity BMI 44.9. 8. Hyperglycemia secondary to steroids. PLAN: Continue medication and treatment plan. Patient remains on high-dose steroids. Awaiting lavage this afternoon. MMODL / IJN: [id number] /
--- NOTE | 2017-10-10 19:23 | PCN ---
PROCEDURE NOTE DATE OF SERVICE: 10/10/2017. PROCEDURE: Bronchoscopy, airway examination, therapeutic lavage, bronchioalveolar lavage. PREOPERATIVE DIAGNOSIS: Pneumonia. POSTOPERATIVE DIAGNOSIS: Pneumonia. DESCRIPTION: There was informed consent. There was universal timeout. The procedure was done in room #2 [facility]. DANCER OR CHOREOGRAPHER provided general anesthesia or unconscious sedation. The procedure was BAL right middle lobe. After the patient was adequately sedated and being fully monitored, the bronchoscope was inserted through the right nostril. It passed through the right nasopharynx into the oropharynx. The hypopharynx was identified and topicalized. The hypopharyngeal structures including anterior commissure, true cords, false cords, arytenoids, piriform sinuses, right and left vallecula and epiglottis all appeared relatively normal. After topicalization, the bronchoscope was pushed through the glottic opening into the trachea. Trachea appeared relatively normal although the distal trachea appeared to be a bit inflamed and erythematous. Tracheal maurice was sharp. The right upper lobe and its 3 segments, right middle lobe and its 2 segments, right lower lobe and its 5 segments, left upper lobe proper and its 2 segments, lingula and its 2 segments, and left lower lobe and its 4 segments all had similar findings of diffuse bronchitis. There was diffuse erythema and hyperemia of the airways. There were thick secretions noted throughout. They were suctioned with some difficulty. There was no dominant mass or tumor. There was some mucosal friability. The bronchoscope was wedged into the right middle lobe. The BAL took place. The patient tolerated the procedure well. There were no immediate complications. Afterwards, additional saline was used to suction secretions and the bronchoscope was withdrawn. The patient will be recovered. There was no immediate complications. MMODL / IJN: [id number] /
[2017-10-10 20:52] LABS: Glucose,Whole Blood 199 mg/dL (75-99)
[2017-10-10 23:02] VITALS: RESP 16
[2017-10-11 00:16] VITALS: TEMP 98.2
[2017-10-11] MEDS: methylPREDNISolone SOD SUCCI 125 MG/2 ML VIAL IV SCH ×3 (00:16→12:08)
[2017-10-11] MEDS: IPRATROPIUM-ALBUTEROL 3 ML NEB INHALATION SCH ×3 (05:17→12:08)
[2017-10-11] MEDS: LACTATED RINGERS 1,000 ML IV SCH (05:17)
[2017-10-11 06:17] VITALS: BP 111/72
[2017-10-11 07:25] LABS: Glucose,Whole Blood 164 mg/dL (75-99)
[2017-10-11] MEDS: ENOXAPARIN 40 MG/0.4 ML SYRINGE SQ SCH (08:15)
[2017-10-11] MEDS: PANTOPRAZOLE 40 MG TABLET PO SCH (08:15)
[2017-10-11] MEDS: ATORVASTATIN 10 MG TAB PO SCH (08:15)
[2017-10-11] MEDS: AMOXIC-POT CLAV 875-125MG 1 EACH TAB PO SCH (08:15)
[2017-10-11] MEDS: VENLAFAXINE HCL ER 150 MG CAP PO SCH (08:15)
[2017-10-11] MEDS: INSULIN ASPART 100 UNIT/ML 1 ML 10 ML VIAL SQ SCH ×2 (08:15→12:08)
[2017-10-11] MEDS: LISINOPRIL-HCTZ 20-25 MG 1 EACH TAB PO SCH (08:15)
[2017-10-11] MEDS: FORMOTEROL FUMARATE 20 MCG/2 ML NEBU INHALATION SCH (08:20)
[2017-10-11] MEDS: BUDESONIDE 1 MG/2 ML NEBU INHALATION SCH (08:20)
[2017-10-11 11:42] LABS: Glucose,Whole Blood 149 mg/dL (75-99)
[2017-10-11] MEDS: LEVOFLOXACIN 750 MG TAB PO SCH (12:07)
[2017-10-11] MEDS: MULTIVITAMINS, THERA 1 EACH TAB PO SCH (12:07)
[2017-10-11 12:19] VITALS: PULSE 101
--- NOTE | 2017-10-11 14:10 | P.PN ---
Subjective Progress Note Date: 10/11/17 Principal diagnosis: Acute hypoxic respiratory failure secondary to suspected aspiration pneumonia with a history of hiatal hernia, GERD and esophagitis Mercedes is a 52-year-old white female patient of Dr. Abreu, who presented to the emergency department on 10/04/2017 with complaints of dyspnea, chest tightness, burning in the chest with coughing, subjective fever and chills. Her symptoms started on Sunday, on Sunday she try to see her PCP, however there were no openings, and she end up going to the [facility] urgent care, she was given a nebulized treatment there, IM Depo-Medrol, and was sent home with an albuterol inhaler. Her symptoms kept progressing, she went to work on however she could hardly walk from the parking lot to the building due to her severe dyspnea. Her boss told her to go back to see the doctor, and she went to the urgent care at the [facility] the [facility] in [place]. There she was given 3 nebulized treatments [id number], and transferred to the [facility] emergency department per EMS. He is an ex-smoker, she quit 5 years ago, but prior to that she smoked up to 2 packs a day for 30 years. She has a history of hiatal hernia, and she was seen in the pulmonary office by Dr. Lopez for preop clearance. Outpatient PFT showed FEV1 of 53%, FVC of 58%, TLC of 85% of predicted, and DLCO of 50%, and patient was diagnosed with restrictive lung disease, secondary to interstitial lung disease. Outpatient CT chest from 07/23/2017 showed subsegmental groundglass changes involving the left upper and lower lobe could be related to pneumonitis or alveolitis, large hiatal hernia, and to less than 5 mm pulmonary nodules within the right lung. Echocardiogram from 07/23/2017 showed left ventricular systolic function with an EF between 50-55%, no evidence of pulmonary hypertension, right ventricular systolic pressure of 19.6 mmHg, and mild mitral , and tricuspid regurgitation. Other medical history includes hypertension, hyperlipidemia, GERD/reflux with esophagitis, depression, obesity, insomnia, CREST syndrome. Patient states she had an extensive workup by the loft worker head, in the workup for scleroderma was negative. Chest x-ray completed in the emergency department on 10/04/2017 showed pleural reaction at the left lung base improved compared the last exam from June 2017, some heart failure, hiatal hernia was again seen. CT angios was completed and showed mild peribronchial thickening, consistent with chronic bronchitis. Nonspecific scattered patchy infiltrates, consistent with pneumonitis. No pulmonary embolism. Gastric pull-through was noted with dilated esophagus. Patient was given Zithromax and Rocephin in the emergency department, and we are seeing the patient in consultation for acute bronchitis, and the possibility of aspiration pneumonia related to her history of significant GERD/reflux, hiatal hernia, and esophagitis. The patient is seen again today 10/06/2017 in follow-up on the regular medical floor. She is awake and alert in no acute distress. Resting fairly comfortably in bed. She does desaturate into the 80s when up walking without her oxygen. She is dyspneic on minimal exertion. Not quite back to her baseline. Temperature 99.0 today. Slightly tachycardic. Maintaining O2 saturations in the 90s on 2 L/m per nasal cannula. Reevaluated today on 10/07/2017, patient is feeling better, however she continues to have intermittent episodes of cough and wheezing. Last night she had ongoing cough most of the night, I still believe the patient is having severe GERD and reflux. CT of the chest on this admission showed nonspecific patchy infiltrates consistent with pneumonitis. Patient is seen and evaluated again on 10/08/2017. Still remains bronchospastic , less short of breath. Lung sounds are positive for scattered wheezes. Room air pulse ox 694%, patient is afebrile, vital signs are stable. His chest x- ray has been reviewed by Dr. Sandoval and shows bibasilar subsegmental consolidation greater on the left. Patient remains on a combination of Levaquin , and Zosyn has been switched to oral Augmentin. Continue with current plan of treatment, will increase the IV Solu-Medrol back to 60 mg every 6 hours, we'll give the patient's on 48 hours of medical treatment, as no improvement, will consider bronchoscopy. On 10/09/2017 patient seen again on medical surgical floor. She is awake, alert , remains dyspneic with any exertion, bronchospastic. Lung sounds are positive for diffuse wheezes, and occasionally patient is able to bring up some yellow phlegm, but mostly time her cough was nonproductive. She complains of chest tightness, and shortness of breath. Afebrile, pulse ox is 92%. Patient has been maximizing medical treatment, and has made limited improvement, continues on empiric antibiotics in the form of Augmentin, and Levaquin. Patient will be scheduled for bronchoscopy with BAL by Dr. Dr. Sandoval tomorrow on 10/10/2017 at 1 PM. The risks and benefits of procedure were discussed with the patient, and the patient is in agreement. On 10/10/2017 patient seen again in medical surgical floor. Remains bronchospastic, and wheezy. Still unable to bring up any phlegm. Room air pulse ox is 94%, signs are stable. Patient remains on maximum medical treatment , with IV steroids, nebulized bronchodilators, and Augmentin and Levaquin. Patient is booked for bronchoscopy with BAL today Dr. Dr. Sandoval. Has been nothing by mouth for the procedure. The patient was seen again today 10/11/2017 in follow-up on the regular medical floor. She is awake and alert in no acute distress. She is breathing quite a bit easier today as compared to yesterday. She did undergo bronchoscopy with BAL with Dr. Sandoval yesterday. Cultures are pending. She is quite anxious to go home. She is maintaining O2 saturations in the 90s on 2 L/m per nasal cannula. She is afebrile. Objective - Vital Signs Vital signs: Vital Signs Temp 98.2 F 10/11/17 05:30 Pulse 101 H 10/11/17 12:18 Resp 16 10/11/17 08:00 BP 111/72 10/11/17 05:30 Pulse Ox 91 L 10/11/17 08:20 Intake & Output 10/10/17 10/11/17 10/11/17 18:59 06:59 18:59 Intake Total 850 Output Total 0 Balance 850 0 Weight 145.15 kg Intake: IV 250 Oral 600 Output: Stool 0 Other: Voiding Method Toilet Toilet # Voids 1 1 # Bowel Movements 0 # Emeses 0 - Exam - Constitutional General appearance: obese - EENT Eyes: EOMI, PERRLA ENT: NA/AT - Neck Neck: no lymphadenopathy Carotids: bilateral: upstroke normal Thyroid: bilateral: normal size - Respiratory Respiratory: bilateral: wheezing prolonged expiration - Cardiovascular Rhythm: regular Heart sounds: normal: S1, S2 ankle Peripheral Edema: absent: None foot Peripheral Edema: absent: None leg Peripheral Edema: absent: None dorsalis pedis Peripheral Pulses: bilateral: Normal radial pulse Peripheral Pulses: bilateral: Normal - Gastrointestinal General gastrointestinal: no organomegaly, soft, no tenderness - Neurologic Neurologic: CNII-XII intact - Musculoskeletal Musculoskeletal: gait normal, strength equal bilaterally - Psychiatric Psychiatric: A&O x's 3, appropriate affect, intact judgment & insight - Labs CBC & Chem 7: 10/04/17 16:40 10/09/17 09:30 Labs: Abnormal Lab Results - Last 24 Hours (Table) 10/10/17 10/10/17 10/10/17 Range/Units 12:00 17:07 20:51 POC Glucose (mg/dL) 196 H 199 H (75-99) mg/dL Viral Test See Below H 10/11/17 10/11/17 Range/Units 07:18 11:38 POC Glucose (mg/dL) 164 H 149 H (75-99) mg/dL Viral Test Microbiology - Last 24 Hours (Table) 10/10/17 12:00 Gram Stain - Preliminary Bronchoalviolar Lavage - Right Bronchial Washings Culture - Preliminary 10/10/17 12:00 Acid Fast Bacilli Culture - Preliminary Bronchoalviolar Lavage - Right 10/10/17 12:00 Fungal Culture - Preliminary Bronchoalviolar Lavage - Right Assessment and Plan Assessment: Assessment: #1. Acute hypoxic respiratory failure, fever, leukocytosis secondary to possible aspiration pneumonia, patient with a history of hiatal hernia, GERD esophagitis. CT angios showed no evidence of pulmonary embolism, but there were areas of patchy pneumonitis and mild peribronchial thickening consistent with chronic bronchitis. Patient had previously been noted to have areas of nonspecific pneumonitis/alveolitis on the CT chest from June 2017 that were liters to be related to aspiration. Status post bronchoscopy with BAL, cultures are pending. #2. History of nonspecific pulmonary nodules noted on the CT of the chest in June 2017, eating followed on an outpatient basis #3. Hypertension, hyperlipidemia #4. Severe GERD with esophagitis, hiatal hernia #5. Obesity #6. Chronic dyspnea on exertion #7. Depression #8. Nicotine dependence, in remission, quit 5 years ago, but has smoked up to 2 packs a day for 30 years Plan: The patient was seen and evaluated by Dr. Sandoval. She is improved today as compared to yesterday. Status post bronchoscopy with BAL. Cultures are pending. She is cleared for discharge from the pulmonary standpoint. Complete course of antibiotics. Complete prednisone taper. Follow-up in our office in 1 -[address] Lopez. I, the cosigning physician, performed a history & physical examination of the patient. Lungs sounds with few scattered rhonchi, end expiratory wheeze. Maintaining good O2 saturations in the 90s on 2 L/m per nasal cannula. I discussed the assessment and plan of care with my nurse practitioner, Yoselyn Henry. I attest to the above note as dictated by her.
--- NOTE | 2017-10-15 15:28 | DS ---
DISCHARGE SUMMARY DATE OF ADMISSION: 10/05/17. DATE OF DISCHARGE: 10/11/17. FINAL DIAGNOSES: 1. Acute severe chronic obstructive pulmonary disease exacerbation due to acute tracheobronchitis probably viral. 2. Gastroesophageal reflux disease. 3. Essential hypertension. 4. Primary osteoarthritis. 5. Achalasia with prior history of surgery, symptomatic. 6. Anxiety and depression, not otherwise specified. 7. Morbid obesity, BMI 44.9. 8. Hyperglycemia secondary to steroids. HOSPITAL COURSE: This patient presented with COPD exacerbation, very congested chest and did respond much to bronchodilators or steroids. Finally did have a bronchoscopy with lavage. [place] greatly improved after the same. Final fungal cultures are still pending. Patient did grow some parainfluenza type 3. EXAM: Lungs: Improved air entry. Cardiovascular: First and second sounds normal. CONSULTATION: Dr. Sandoval from Pulmonary. MEDICATIONS: 1. Effexor XR 150 mg a day. 2. Zestoretic 20/25 1 tab p.o. daily. 3. Omeprazole 20 mg p.o. daily. 4. Lipitor 10 mg p.o. daily. 5. Vitamin D2 50,000 units p.o. daily. 6. Multivitamin 1 tablet p.o. daily. 7. DuoNeb q.i.d. 8. Prednisone taper. 9. No antibiotics. FOLLOWUP: Follow up with Dr. Lopez on 10/18/17, follow with Dr. Juanito Abreu on 10/18/17. MMODL / IJN: [id number] /
== END 2017-10-11 14:45 | disposition home or self-care (01) | DRG 166 ==
LOC: EC 16:29 → 4MS4W 17:39 → OBSVTOIN 10-05 09:39
PROVIDERS: ADMIT Hospitalist; ATTEND Hospitalist
PROC: 0B9D8ZX Drainage of Right Middle Lung Lobe, Via Natural or Artificial Opening Endoscopic, Diagnostic (ICD-10-PCS; principal; 2017-10-10 14:05)
DX: J44.1 Chronic obstructive pulmonary disease with (acute) exacerbation (principal); J96.01 Acute respiratory failure with hypoxia; Z68.41 Body mass index [BMI] 40.0-44.9, adult; J20.8 Acute bronchitis due to other specified organisms; J44.0 Chronic obstructive pulmonary disease with (acute) lower respiratory infection; K21.9 Gastro-esophageal reflux disease without esophagitis; F32.9 Major depressive disorder, single episode, unspecified; F41.9 Anxiety disorder, unspecified; I10 Essential (primary) hypertension; M17.11 Unilateral primary osteoarthritis, right knee; K22.0 Achalasia of cardia; E66.01 Morbid (severe) obesity due to excess calories; K21.0 Gastro-esophageal reflux disease with esophagitis; M34.1 CR(E)ST syndrome; M17.0 Bilateral primary osteoarthritis of knee; E78.5 Hyperlipidemia, unspecified; I11.0 Hypertensive heart disease with heart failure; I50.9 Heart failure, unspecified; K44.9 Diaphragmatic hernia without obstruction or gangrene; Z86.718 Personal history of other venous thrombosis and embolism; Z79.899 Other long term (current) drug therapy; Z90.49 Acquired absence of other specified parts of digestive tract; Z87.891 Personal history of nicotine dependence; T38.0X5A Adverse effect of glucocorticoids and synthetic analogues, initial encounter; R73.9 Hyperglycemia, unspecified
CPT/HCPCS: 31624; 31645; 36415; 71046; 71275; 80048; 80053; 82553; 82803; 83605; 83880; 84484; 85025; 85610; 85730; 87070; 87102; 87116; 87205; 87206; 87252; 87496; 87498; 87502; 87529; 87634; 87798; 88108; 88305; 93005; 94640; 94760; 96361; 96374; 99285

== ENCOUNTER 2017-10-28 11:26 | Emergency (ER) | payer OTHER ==
[2017-10-28 11:29] VITALS: BP 124/77; PULSE 116; RESP 20; TEMP 98.1
--- NOTE | 2017-10-28 11:55 | ED ---
General Adult HPI - General Chief complaint: Skin/Abscess/Foreign Body Stated complaint: Spot of Leg Time Seen by Provider: 10/28/17 11:29 Source: patient, RN notes reviewed, old records reviewed Mode of arrival: ambulatory Limitations: no limitations - History of Present Illness Initial comments: This is a 32-year-old female the ER for evaluation today. States she presents for evaluation of lesion to her right leg. Patient states she has a bump on her right leg with warmth and erythema. She denies any injury no bleeding from issue or site. Patient does admit to recent hospitalization for pneumonia. She is not currently on any antibiotics. Patient many concerted of blood clots but denies history of blood clots. No calf pain, no shortness of breath or chest pain. Patient denies fevers currently. Denies any other complaints - Related Data Home Medications Medication Instructions Recorded Confirmed Venlafaxine HCl [Effexor XR] 150 mg PO DAILY 12/19/16 10/04/17 Lisinopril-Hctz 20-25 mg 1 tab PO DAILY 03/06/17 10/04/17 [Zestoretic 20-25] Omeprazole 20 mg PO DAILY 03/06/17 10/04/17 Atorvastatin [Lipitor] 10 mg PO DAILY 10/04/17 10/04/17 Ergocalciferol (Vitamin D2) 50,000 unit PO DAILY 10/04/17 10/04/17 [Vitamin D2] Multivitamins, Thera [Multivitamin 1 tab PO DAILY 10/04/17 10/04/17 (formulary)] Previous Rx's Medication Instructions Recorded Ipratropium-Albuterol Nebulize 3 ml INHALATION QID #100 ampul.neb 10/11/17 [Duoneb 0.5 mg-3 mg/3 ml Soln] predniSONE 10 mg PO DAILY #30 tab 10/11/17 Allergies Allergy/AdvReac Type Severity Reaction Status Date / Time No Known Allergies Allergy Verified 10/28/17 11:29 Review of Systems ROS Statement: Those systems with pertinent positive or pertinent negative responses have been documented in the HPI. ROS Other: All systems not noted in ROS Statement are negative. Past Medical History Past Medical History: Deep Vein Thrombosis (DVT), GERD/Reflux, Hypertension, Osteoarthritis (OA) Additional Past Medical History / Comment(s): DVT years ago after taking control, achalasia, osteoarthritis rt knee History of Any Multi-Drug Resistant Organisms: None Reported Past Surgical History: Cholecystectomy, Heart Catheterization Additional Past Surgical History / Comment(s): STATES ESOPHAGUS WAS TOO TIGHT AND THEY REMOVED HER RIB AND DID HILAR PROCEDURE, eye surg. as a baby Past Anesthesia/Blood Transfusion Reactions: No Reported Reaction Past Psychological History: Anxiety, Depression Smoking Status: Former smoker Past Alcohol Use History: Occasional Past Drug Use History: None Reported - Past Family History Father Family Medical History: Cancer Additional Family Medical History / Comment(s): PROSTATE CANCER General Exam - General Exam Comments Initial Comments: Patient does have erythematous area with warmth to right lower extremity, 2 x 3 cm Limitations: no limitations General appearance: alert, in no apparent distress Head exam: Present: atraumatic, normocephalic, normal inspection Eye exam: Present: normal appearance, PERRL, EOMI. Absent: scleral icterus, conjunctival injection, periorbital swelling ENT exam: Present: normal exam, mucous membranes moist Neck exam: Present: normal inspection. Absent: tenderness, meningismus, lymphadenopathy Respiratory exam: Present: normal lung sounds bilaterally. Absent: respiratory distress, wheezes, rales, rhonchi, stridor Cardiovascular Exam: Present: regular rate, normal rhythm, normal heart sounds. Absent: systolic murmur, diastolic murmur, rubs, gallop, clicks GI/Abdominal exam: Present: soft, normal bowel sounds. Absent: distended, tenderness, guarding, rebound, rigid Extremities exam: Present: normal inspection, full ROM, normal capillary refill. Absent: tenderness, pedal edema, joint swelling, calf tenderness Back exam: Present: normal inspection Neurological exam: Present: alert, oriented X3, CN II-XII intact Psychiatric exam: Present: normal affect, normal mood Skin exam: Present: warm, dry, intact, normal color. Absent: rash Course Vital Signs 10/28/17 11:27 Temperature 98.1 F Pulse Rate 116 H Respiratory 20 Rate Blood Pressure 124/77 O2 Sat by Pulse 98 Oximetry - Reevaluation(s) Reevaluation #1: 10/28/17 11:52 Patient discussed at length reasons for concern including increased of erythema. Medical Decision Making - Medical Decision Making 52 female the ER for evaluation right lower extremity erythema, patient will be placed on antibiotics and discharged home Disposition Clinical Impression: Cellulitis of right lower extremity Disposition: HOME SELF-CARE Condition: Good Instructions: Cellulitis (ED) Is patient prescribed a controlled substance at d/c from ED?: No Referrals: Juanito Abreu DO [Primary Care Provider] - 1-2 days
== END 2017-10-28 12:12 | disposition home or self-care (01) ==
LOC: EC 11:26
DX: L03.115 Cellulitis of right lower limb (principal); K21.9 Gastro-esophageal reflux disease without esophagitis; I10 Essential (primary) hypertension; F41.9 Anxiety disorder, unspecified; F32.9 Major depressive disorder, single episode, unspecified; Z86.718 Personal history of other venous thrombosis and embolism; Z79.899 Other long term (current) drug therapy
CPT/HCPCS: 99283

== ENCOUNTER 2017-10-31 15:37 | Emergency (ER) | payer OTHER ==
[2017-10-31 16:07] VITALS: TEMP 98.3
[2017-10-31 16:24] LABS: Anisocytosis Slight; Basophils % (A) 0 %; Eosinophils # (A) 0.4 k/uL (0-0.7); Eosinophils % (A) 5 %; HCT 34.5 % (34.0-46.0); HGB 11.9 gm/dL (11.4-16.0); Lymphocytes # (A) 1.9 k/uL (1.0-4.8); Lymphocytes % (A) 24 %; MCHC 34.3 g/dL (31.0-37.0); MCV 84.3 fL (80.0-100.0); Mean Platelet Volume 6.6; Monocytes # (A) 0.4 k/uL (0-1.0); Monocytes % (A) 5 %; Neutrophils # (A) 5.3 k/uL (1.3-7.7); Neutrophils % (A) 64 %; Platelet Count 266 k/uL (150-450); RDW 16.4 % (11.5-15.5); WBC 8.1 k/uL (3.8-10.6)
[2017-10-31 16:25] LABS: INR 1.1 (<1.2); Prothrombin Time 10.5 sec (9.0-12.0)
--- NOTE | 2017-10-31 16:35 | ED ---
General Adult HPI - General Chief complaint: Extremity Injury, Lower Stated complaint: Leg Pain Source: family Mode of arrival: ambulatory Limitations: no limitations - History of Present Illness Initial comments: HPI Macro Chief Complaint: 52-year-old male past medical history of psychiatric disease, hypertension, hyperlipidemia presents with right lower extremity pain History of Present Illness: Is a 52-year-old female presents with persistent right lower extremity pain. Patient was seen in this hospital 3 days ago where she was diagnosed with cellulitis of the right lower extremity. She was given prescription of Keflex and Bactrim. Over the past 3 days she reports that her symptoms did not improve. Patient states the area of erythema and redness continued to progress. Patient has a past medical history of right lower extremity deep venous thrombosis secondary to oral contraceptive pill use when she was a teenager. Denies any constitutional symptoms. Patient denies any chest pain or shortness of breath. Past Medical History: Psychiatric disease, GERD, hypertension, asthma/COPD, dyslipidemia Past Surgical History:[reviewed, none to report] Social History: [denies alcohol, tobacco or illicit drug use] Family History: reviewed and noncontributory The ROS documented in this emergency department record has been reviewed and confirmed by me. Those systems with pertinent positive or negative responses have been documented in the HPI. All other systems are other negative and/or noncontributory. - Related Data Home Medications Medication Instructions Recorded Confirmed Venlafaxine HCl [Effexor XR] 150 mg PO DAILY 12/19/16 10/04/17 Lisinopril-Hctz 20-25 mg 1 tab PO DAILY 03/06/17 10/04/17 [Zestoretic 20-25] Omeprazole 20 mg PO DAILY 03/06/17 10/04/17 Atorvastatin [Lipitor] 10 mg PO DAILY 10/04/17 10/04/17 Ergocalciferol (Vitamin D2) 50,000 unit PO DAILY 10/04/17 10/04/17 [Vitamin D2] Multivitamins, Thera [Multivitamin 1 tab PO DAILY 10/04/17 10/04/17 (formulary)] Previous Rx's Medication Instructions Recorded Ipratropium-Albuterol Nebulize 3 ml INHALATION QID #100 ampul.neb 10/11/17 [Duoneb 0.5 mg-3 mg/3 ml Soln] predniSONE 10 mg PO DAILY #30 tab 10/11/17 Cephalexin [Keflex] 500 mg PO Q6HR #40 cap 10/28/17 Sulfamethox-Tmp 800-160Mg [Bactrim 2 tab PO BID #40 tab 10/28/17 DS 800-160 mg] Allergies Allergy/AdvReac Type Severity Reaction Status Date / Time No Known Allergies Allergy Verified 10/28/17 11:29 Review of Systems ROS Statement: Those systems with pertinent positive or pertinent negative responses have been documented in the HPI. ROS Other: All systems not noted in ROS Statement are negative. Past Medical History Past Medical History: Deep Vein Thrombosis (DVT), GERD/Reflux, Hypertension, Osteoarthritis (OA) Additional Past Medical History / Comment(s): DVT years ago after taking control, achalasia, osteoarthritis rt knee History of Any Multi-Drug Resistant Organisms: None Reported Past Surgical History: Cholecystectomy, Heart Catheterization Additional Past Surgical History / Comment(s): STATES ESOPHAGUS WAS TOO TIGHT AND THEY REMOVED HER RIB AND DID HILAR PROCEDURE, eye surg. as a baby Past Anesthesia/Blood Transfusion Reactions: No Reported Reaction Past Psychological History: Anxiety, Depression Smoking Status: Former smoker Past Alcohol Use History: Occasional Past Drug Use History: None Reported - Past Family History Father Family Medical History: Cancer Additional Family Medical History / Comment(s): PROSTATE CANCER General Exam - General Exam Comments Initial Comments: Vitals: Vital signs upon arrival shows heart rate of 1:30, rest of vital signs within normal limits. PHYSICAL EXAM: General Impression: Alert and oriented x3, not in acute distress HEENT: Normocephalic atraumatic, extra-ocular movements intact, pupils equal and reactive to light bilaterally, mucous membranes moist. Cardiovascular: Heart regular rate and rhythm, S1&S2 audible, no murmurs, rubs or gallops Chest: Lungs clear to auscultation bilaterally, no rhonchi, no wheeze, no rales Abdomen: Bowel sounds present, abdomen soft, non-tender, non-distended, no organomegaly Musculoskeletal: Pulses present and equal in all extremities, no peripheral edema Motor: Power 5/5 bilaterally, no focal deficits noted Neurological: CN II-XII grossly intact, no focal motor or sensory deficits noted Skin: Induration of the right medial aspect of the right lower extremity medial to the gastrocnemius muscle. Psych: Normal affect and mood Limitations: no limitations Course Vital Signs 10/31/17 15:45 Temperature 98.3 F Pulse Rate 130 H Respiratory 18 Rate Blood Pressure 140/65 O2 Sat by Pulse 96 Oximetry Medical Decision Making - Medical Decision Making ED course: 31-year-old female presents with persistent right lower extremity pain after being diagnosed with reflux from a cellulitis 4 days ago. She reports worsening symptoms. Vital signs upon arrival shows tachycardia of 1 :30, rest of vital signs within normal limits. Patient denies any chest pain or shortness of breath. No hypoxia or tachypnea. Patient denies any pain over the deep venous portion of the right lower extremity. [id number] bedside ultrasound shows findings suspicious for thrombophlebitis of the right lower extremity veins. Patient is at risk secondary to varicose veins of the bilateral lower extremities. At this point there is no clinical suspicion of pulmonary embolus given lack of symptoms of shortness of breath or chest pain.Laboratory evaluation obtained was obtained. CBC is unremarkable. No leukocytosis. Coag panel is unremarkable. Basic metabolic panel shows mild elevation of renal markers. Labs otherwise within acceptable limits. Formal ultrasound was obtained showing no deep venous thrombosis. There is superficial venous thrombosis. EKG was obtained showing sinus tachycardia. Patient has a complex chest pain or shortness of breath. no clinical suspicion of pulmonary embolus at this time. Patient told that she should follow-up with her primary care physician within 7-10 days for repeat ultrasound of the lower extremity. She is advised to monitor symptoms seek medical attention should she develop pain over the medial thigh, popliteal area, chest pain and/or shortness of breath. She is advised to continue taking the antibiotics. She has Motrin at home that she can take for pain. Agreeable to disposition. - Lab Data Result diagrams: 10/31/17 16:00 10/31/17 16:00 Lab Results 10/31/17 10/31/17 10/31/17 Range/Units 16:00 16:00 16:00 WBC 8.1 (3.8-10.6) k/uL RBC 4.10 (3.80-5.40) m/uL Hgb 11.9 (11.4-16.0) gm/dL Hct 34.5 (34.0-46.0) % MCV 84.3 (80.0-100.0) fL MCH 29.0 (25.0-35.0) pg MCHC 34.3 (31.0-37.0) g/dL RDW 16.4 H (11.5-15.5) % Plt Count 266 (150-450) k/uL Neutrophils % 64 % Lymphocytes % 24 % Monocytes % 5 % Eosinophils % 5 % Basophils % 0 % Neutrophils # 5.3 (1.3-7.7) k/uL Lymphocytes # 1.9 (1.0-4.8) k/uL Monocytes # 0.4 (0-1.0) k/uL Eosinophils # 0.4 (0-0.7) k/uL Basophils # 0.0 (0-0.2) k/uL Anisocytosis Slight PT 10.5 (9.0-12.0) sec INR 1.1 (<1.2) Sodium 138 (137-145) mmol/L Potassium 4.8 (3.5-5.1) mmol/L Chloride 103 (98-107) mmol/L Carbon Dioxide 23 (22-30) mmol/L Anion Gap 12 mmol/L BUN 34 H (7-17) mg/dL Creatinine 1.30 H (0.52-1.04) mg/dL Est GFR (CKD-EPI)AfAm 54 (>60 ml/min/1.73 sqM) Est GFR (CKD-EPI)NonAf 47 (>60 ml/min/1.73 sqM) Glucose 104 H (74-99) mg/dL Calcium 10.6 H (8.4-10.2) mg/dL Disposition Clinical Impression: Thrombophlebitis Disposition: HOME SELF-CARE Condition: Fair Instructions: Superficial Thrombophlebitis (ED) Is patient prescribed a controlled substance at d/c from ED?: No Referrals: Juanito Abreu DO [Primary Care Provider] - 1-2 days Time of Disposition: 17:28
[2017-10-31 16:36] LABS: Calcium 10.6 mg/dL (8.4-10.2); Potassium 4.8 mmol/L (3.5-5.1)
--- NOTE | 2017-10-31 17:12 | US ---
EXAMINATION TYPE: US venous doppler duplex LE RT DATE OF EXAM: 10/31/2017 3:59 PM COMPARISON: NONE CLINICAL HISTORY: Pain. SIDE PERFORMED: Right TECHNIQUE: The lower extremity deep venous system is examined utilizing real time linear array sonog harsh with graded compression, doppler sonography and color-flow sonography. VESSELS IMAGED: External Iliac Vein (EIV) Common Femoral Vein Deep Femoral Vein Greater Saphenous Vein * Femoral Vein Popliteal Vein Small Saphenous Vein * Proximal Calf Veins (* superficial vessels) Right Leg: Negative for DVT Superficial thrombophlebitis seen at right ankle, superficial clot seen in pop fossa. IMPRESSION: There is superficial venous thrombosis. No evidence of deep venous thrombosis.
[2017-10-31 18:05] VITALS: BP 97/57; PULSE 58; RESP 16
== END 2017-10-31 18:00 | disposition home or self-care (01) ==
LOC: EC 15:37
DX: I80.3 Phlebitis and thrombophlebitis of lower extremities, unspecified (principal); K21.9 Gastro-esophageal reflux disease without esophagitis; F41.9 Anxiety disorder, unspecified; F32.9 Major depressive disorder, single episode, unspecified; Z95.818 Presence of other cardiac implants and grafts; Z86.711 Personal history of pulmonary embolism; Z87.891 Personal history of nicotine dependence; Z79.899 Other long term (current) drug therapy
CPT/HCPCS: 36415; 80048; 85025; 85610; 93005; 99284

== ENCOUNTER 2017-11-15 16:55 | Inpatient (IN) | payer OTHER ==
[2017-11-15] MEDS ORDERED: ONDANSETRON 4 MG/2 ML VIAL IVP STA (17:49)
[2017-11-15] MEDS ORDERED: SODIUM CHLORIDE 0.9% 1,000 ML IV STA (17:49)
[2017-11-15 18:44] LABS: INR 1.1 (<1.2); Prothrombin Time 10.9 sec (9.0-12.0)
[2017-11-15 18:50] LABS: Anisocytosis Slight; Basophils # (A) 0.1 k/uL (0-0.2); Basophils % (A) 1 %; Eosinophils # (A) 0.1 k/uL (0-0.7); Eosinophils % (A) 1 %; HCT 33.2 % (34.0-46.0); HGB 11.2 gm/dL (11.4-16.0); Lymphocytes # (A) 1.9 k/uL (1.0-4.8); Lymphocytes % (A) 13 %; MCH 29.1 pg (25.0-35.0); MCHC 33.8 g/dL (31.0-37.0); MCV 86.1 fL (80.0-100.0); Mean Platelet Volume 7.1; Monocytes # (A) 0.7 k/uL (0-1.0); Monocytes % (A) 5 %; Neutrophils # (A) 11.7 k/uL (1.3-7.7); Neutrophils % (A) 80 %; Platelet Count 367 k/uL (150-450); RBC 3.85 m/uL (3.80-5.40); RDW 17.9 % (11.5-15.5); WBC 14.5 k/uL (3.8-10.6)
--- NOTE | 2017-11-15 18:51 | XR ---
EXAMINATION TYPE: XR chest 1V DATE OF EXAM: 11/15/2017 COMPARISON: 10/18/2017 HISTORY: Chest pain TECHNIQUE: Single frontal view of the chest is obtained. FINDINGS: Single portable view shows no heart failure nor confluent pneumonic infiltrate. Costophren ic angles are clear. Heart size is normal. There are chest leads. Bony thorax appears intact. There i s old healed left rib fracture. IMPRESSION: No active cardiopulmonary disease. No change.
[2017-11-15 18:55] LABS: Albumin 4.3 g/dL (3.5-5.0); Magnesium 1.5 mg/dL (1.6-2.3); Total Bilirubin 0.5 mg/dL (0.2-1.3); Total Protein 6.7 g/dL (6.3-8.2)
--- NOTE | 2017-11-15 18:58 | ED ---
General Adult HPI - General Chief complaint: Nausea/Vomiting/Diarrhea Stated complaint: N/V/D dehydrarion Source: patient Mode of arrival: wheelchair Limitations: no limitations - History of Present Illness Initial comments: Dictation was produced using [employer] dictation software. please excuse any grammatical, word or spelling errors. Chief Complaint: 52-year-old female with past medical history of DVT, hypertension, osteoporosis arthritis presents with shortness of breath or palpitations. History of Present Illness: Patient reports she was seen here approximately 2 weeks ago for lower extremity pain. She was diagnosed with superficial thrombophlebitis. Patient reports that over the last several days she is becoming short of breath. She states that during exertion she is having trouble breathing. She was seen at urgent care for tachycardia and hypertension. She was sent here for further evaluation.. Chart review shows that patient was seen here was covered with antibiotics for superficial cellulitis and thrombophlebitis. Patient reports having had multiple bouts of nausea, diarrhea and vomiting. Patient denies any chest pain. The ROS documented in this emergency department record has been reviewed and confirmed by me. Those systems with pertinent positive or negative responses have been documented in the HPI. All other systems are other negative and/or noncontributory. - Related Data Home Medications Medication Instructions Recorded Confirmed Venlafaxine HCl [Effexor XR] 150 mg PO DAILY 12/19/16 11/15/17 Lisinopril-Hctz 20-25 mg 1 tab PO DAILY 03/06/17 11/15/17 [Zestoretic 20-25] Omeprazole 20 mg PO BID 03/06/17 11/15/17 Atorvastatin [Lipitor] 10 mg PO DAILY 10/04/17 11/15/17 Multivitamins, Thera [Multivitamin 1 tab PO DAILY 10/04/17 11/15/17 (formulary)] Albuterol Inhaler [Ventolin Hfa 1 - 2 puff INHALATION RT-Q6H PRN 11/15/17 Inhaler] Ipratropium-Albuterol Nebulize 3 ml INHALATION RT-QID PRN 11/15/17 11/15/17 [Duoneb 0.5 mg-3 mg/3 ml Soln] Vitamin B Complex 1 cap PO DAILY 11/15/17 11/15/17 Vitamin D3(Unknown) 1 tab PO DAILY 11/15/17 11/15/17 Allergies Allergy/AdvReac Type Severity Reaction Status Date / Time No Known Allergies Allergy Verified 11/15/17 19:07 Review of Systems ROS Statement: Those systems with pertinent positive or pertinent negative responses have been documented in the HPI. ROS Other: All systems not noted in ROS Statement are negative. Past Medical History Past Medical History: Deep Vein Thrombosis (DVT), GERD/Reflux, Hypertension, Osteoarthritis (OA) Additional Past Medical History / Comment(s): DVT years ago after taking control, achalasia, osteoarthritis rt knee History of Any Multi-Drug Resistant Organisms: None Reported Past Surgical History: Cholecystectomy, Heart Catheterization Additional Past Surgical History / Comment(s): STATES ESOPHAGUS WAS TOO TIGHT AND THEY REMOVED HER RIB AND DID HILAR PROCEDURE, eye surg. as a baby Past Anesthesia/Blood Transfusion Reactions: No Reported Reaction Past Psychological History: Anxiety, Depression Smoking Status: Former smoker Past Alcohol Use History: Occasional Past Drug Use History: None Reported - Past Family History Father Family Medical History: Cancer Additional Family Medical History / Comment(s): PROSTATE CANCER General Exam - General Exam Comments Initial Comments: PHYSICAL EXAM: General Impression: Alert and oriented x3, not in acute distress HEENT: Normocephalic atraumatic, extra-ocular movements intact, pupils equal and reactive to light bilaterally, mucous membranes moist. Cardiovascular: Heart regular rate and rhythm, S1&S2 audible, no murmurs, rubs or gallops Chest: Lungs clear to auscultation bilaterally, no rhonchi, no wheeze, no rales Abdomen: Bowel sounds present, abdomen soft, non-tender, non-distended, no organomegaly Musculoskeletal: Pulses present and equal in all extremities, no peripheral edema Motor: Power 5/5 bilaterally, no focal deficits noted Neurological: CN II-XII grossly intact, no focal motor or sensory deficits noted Skin: Intact with no visualized rashes Psych: Normal affect and mood Limitations: no limitations Course Vital Signs 11/15/17 11/15/17 11/15/17 17:40 18:02 18:37 Temperature 97.9 F Pulse Rate 115 H 110 H 104 H Respiratory 18 16 18 Rate Blood Pressure 67/49 105/50 115/52 O2 Sat by Pulse 100 99 Oximetry 07/19/18 07/19/18 07/20/18 19:36 20:56 06:42 Temperature Pulse Rate 91 93 Respiratory 16 16 Rate Blood Pressure 106/57 125/58 92/54 O2 Sat by Pulse Oximetry 11/16/17 11/16/17 11/16/17 08:00 09:14 12:57 Temperature Pulse Rate 99 86 Respiratory 18 18 18 Rate Blood Pressure 114/52 76/39 O2 Sat by Pulse 96 99 Oximetry 11/16/17 14:14 Temperature 98.2 F Pulse Rate 84 Respiratory 20 Rate Blood Pressure 107/55 O2 Sat by Pulse 98 Oximetry Medical Decision Making - Medical Decision Making ED course: 52-year-old female presents from urgent care for tachycardia and hypertension. Signs here in the hospital shows initial blood pressure of 67/49 , heart rate 1:15. Repeat vital signs are improved. She does still tachycardic however. Patient is not hypoxic nor is she tachypneic. Laboratory evaluation obtained. Leukocytosis of 14.5. Hemoglobin is 11.2. Coag panel unremarkable. Elevated renal markers a creatinine of 2.10. 113. Magnesium 1.5. Patient not a candidate for contrast given that patient has on exam acute kidney injury. VQ scan was obtained to rule out pulmonary emboli. VQ scan shows small mismatched defects that correspond to intermediate probability of PE. Discussed imaging studies with radiologist. Patient started on heparin. Patient has extensive history of lung infections with leukocytosis. We'll give her one dose of antibiotics here today. Patient be admitted with consultation to pulmonology. Disposition to telemetry. EKG interpretation: Ventricular rate 112. Sinus tachycardia rhythm. No CO prolongation, no QTC prolongation, no ST or T-wave changes noted. This EKG does show signs to suggest right heart strain with S1 every 3 T3 pattern. This is findings are similar to most recent EKG done on [id number]. No changes since then. - Lab Data Result diagrams: 11/15/17 18:21 11/15/17 18:21 Lab Results 11/15/17 11/15/17 11/15/17 Range/Units 18:21 18:21 18:21 WBC 14.5 H (3.8-10.6) k/uL RBC 3.85 (3.80-5.40) m/uL Hgb 11.2 L (11.4-16.0) gm/dL Hct 33.2 L (34.0-46.0) % MCV 86.1 (80.0-100.0) fL MCH 29.1 (25.0-35.0) pg MCHC 33.8 (31.0-37.0) g/dL RDW 17.9 H (11.5-15.5) % Plt Count 367 (150-450) k/uL Neutrophils % 80 % Lymphocytes % 13 % Monocytes % 5 % Eosinophils % 1 % Basophils % 1 % Neutrophils # 11.7 H (1.3-7.7) k/uL Lymphocytes # 1.9 (1.0-4.8) k/uL Monocytes # 0.7 (0-1.0) k/uL Eosinophils # 0.1 (0-0.7) k/uL Basophils # 0.1 (0-0.2) k/uL Anisocytosis Slight PT (9.0-12.0) sec INR (<1.2) Sodium 141 (137-145) mmol/L Potassium 4.0 (3.5-5.1) mmol/L Chloride 105 (98-107) mmol/L Carbon Dioxide 23 (22-30) mmol/L Anion Gap 13 mmol/L BUN 54 H (7-17) mg/dL Creatinine 2.10 H (0.52-1.04) mg/dL Est GFR (CKD-EPI)AfAm 30 (>60 ml/min/1.73 sqM) Est GFR (CKD-EPI)NonAf 26 (>60 ml/min/1.73 sqM) Glucose 113 H (74-99) mg/dL Plasma Lactic Acid Mau 1.7 (0.7-2.0) mmol/L Calcium 11.0 H (8.4-10.2) mg/dL Magnesium 1.5 L (1.6-2.3) mg/dL Total Bilirubin 0.5 (0.2-1.3) mg/dL AST 19 (14-36) U/L ALT 35 (9-52) U/L Alkaline Phosphatase 92 (38-126) U/L Troponin I (0.000-0.034) ng/mL NT-Pro-B Natriuret Pep pg/mL Total Protein 6.7 (6.3-8.2) g/dL Albumin 4.3 (3.5-5.0) g/dL 11/15/17 11/15/1718 Range/Units 18:21 18:21 18:21 WBC (3.8-10.6) k/uL RBC (3.80-5.40) m/uL Hgb (11.4-16.0) gm/dL Hct (34.0-46.0) % MCV (80.0-100.0) fL MCH (25.0-35.0) pg MCHC (31.0-37.0) g/dL RDW (11.5-15.5) % Plt Count (150-450) k/uL Neutrophils % % Lymphocytes % % Monocytes % % Eosinophils % % Basophils % % Neutrophils # (1.3-7.7) k/uL Lymphocytes # (1.0-4.8) k/uL Monocytes # (0-1.0) k/uL Eosinophils # (0-0.7) k/uL Basophils # (0-0.2) k/uL Anisocytosis PT 10.9 (9.0-12.0) sec INR 1.1 (<1.2) Sodium (137-145) mmol/L Potassium (3.5-5.1) mmol/L Chloride (98-107) mmol/L Carbon Dioxide (22-30) mmol/L Anion Gap mmol/L BUN (7-17) mg/dL Creatinine (0.52-1.04) mg/dL Est GFR (CKD-EPI)AfAm (>60 ml/min/1.73 sqM) Est GFR (CKD-EPI)NonAf (>60 ml/min/1.73 sqM) Glucose (74-99) mg/dL Plasma Lactic Acid Mau (0.7-2.0) mmol/L Calcium (8.4-10.2) mg/dL Magnesium (1.6-2.3) mg/dL Total Bilirubin (0.2-1.3) mg/dL AST (14-36) U/L ALT (9-52) U/L Alkaline Phosphatase (38-126) U/L Troponin I <0.012 (0.000-0.034) ng/mL NT-Pro-B Natriuret Pep 120 pg/mL Total Protein (6.3-8.2) g/dL Albumin (3.5-5.0) g/dL Disposition Clinical Impression: Pulmonary embolism Disposition: ADMITTED IP TO THIS HOSP Condition: Fair Is patient prescribed a controlled substance at d/c from ED?: No Time of Disposition: 21:52
[2017-11-15] MEDS ORDERED: HEPARIN SODIUM,PORCINE 5,000 UNIT/ML 1 ML VIAL IV PRN ×2 (19:02→21:31)
[2017-11-15] MEDS ORDERED: HEPARIN SODIUM,PORCINE 10,000 UNIT/ML 1 ML VIAL IV ONE ×2 (19:02→21:31)
[2017-11-15] MEDS ORDERED: HEPARIN SOD,PORK IN 0.45% NACL 25,000 UNIT in 0.45% NACL 1 500ML.BAG IV SCH (19:15)
[2017-11-15] MEDS ORDERED: CEFEPIME 2 GM in SODIUM CHLORIDE 0.9% 50 ML IVPB STA (19:26)
[2017-11-15] MEDS ORDERED: VANCOMYCIN 2,250 MG in SODIUM CHLORIDE 0.9% 500 ML IVPB STA (19:26)
--- NOTE | 2017-11-15 21:10 | NM ---
EXAMINATION TYPE: NM pul vent and perfuse DATE OF EXAM: 11/15/2017 COMPARISON: NONE HISTORY: TECHNIQUE: Utilizing inhalation of 65.4 mCi Tc 99m DTPA aerosol and intravenous injection of 5.08 mC i of Tc 99m MAA, ventilation and perfusion images are acquired post injection in multiple projections . FINDINGS: There are subsegmental defects in the right lung along the major fissure and the minor fissure. Perfu leo abnormalities appear slightly worse than the ventilation abnormality. There is also a mismatch s ubsegmental defect at the right posterior lung base. IMPRESSION: There are small mismatched defects that correspond to intermediate probability of pulmonary embolism in the right lower lobe.
[2017-11-15] MEDS ORDERED: NALOXONE 0.4 MG/ML 1 ML VIAL IV PRN (21:49)
[2017-11-15 22:16] LABS: Amorphous Sediment,Urine Rare /hpf; Appearance,Urine Cloudy (Clear); Bacteria,Urine Many /hpf; Bilirubin,Urine Negative (Negative); Blood,Urine Trace (Negative); Color,Urine Dark Yellow; Glucose,Urine (UA) Trace (Negative); Hyaline Casts,Urine 48 /lpf (0-2); Ketones,Urine Negative (Negative); Leukocyte Esterase,Urine Moderate (Negative); Mucus,Urine Many /hpf; Nitrite,Urine Negative (Negative); Protein,Urine 1+ (Negative); RBC,Urine 4 /hpf (0-5); Specific Gravity,Urine 1.014 (1.001-1.035); Squamous Epithelial Cell,Urine 26 /hpf (0-4); Urobilinogen,Urine <2.0 mg/dL (<2.0); WBC,Urine 8 /hpf (0-5)
[2017-11-15] MEDS: HEPARIN SOD,PORK IN 0.45% NACL 25,000 UNIT in 0.45% NACL 1 500ML.BAG IV SCH (22:33)
[2017-11-16] MEDS ORDERED: IPRATROPIUM-ALBUTEROL 3 ML NEB INHALATION PRN (07:03)
[2017-11-16] MEDS ORDERED: ALBUTEROL NEBULIZED 2.5 MG/3 ML INHALATION PRN (07:03)
[2017-11-16] MEDS: PANTOPRAZOLE 40 MG TABLET PO SCH (08:47)
[2017-11-16] MEDS: HEPARIN SOD,PORK IN 0.45% NACL 25,000 UNIT in 0.45% NACL 1 500ML.BAG IV SCH ×2 (09:18→22:48)
--- NOTE | 2017-11-16 14:01 | P.HPIM ---
History of Present Illness 52-year-old pleasant female was treated in the past for COPD given comments of shortness of breath patient mostly history of restrictive lung disease from obesity and sleep apnea. Patient came in with the him been some shortness of breath patient does not appear to have any significantly elevated JVD does not have any pulmonary edema but does have elevated BNP. Patient denied any orthopnea PND patient clinically does not appear to be in CHF patient is not in heart failure exacerbation because of her continued shortness of breath a VQ scan was obtained to rule out pulmonary embolism as her creatinine is elevated to 2.5 which showed intermediate probability for PE. I'll obtain a d-dimer and bilateral lower limb Doppler patient did upon questioning did complain of right calf pain and patient does have some localized venous stasis redness in the right leg and does have varicose veins. Patient doesn't ambulate much. Patient during her recent hospitalization was treated for COPD exacerbation. Patient was recently treated for superficial thrombophlebitis. Patient baseline creatinine is actually around 0.9 all will hydrate her repeat creatinine again tomorrow after which probably can get a CT angios the chest for pulmonary embolism which is more accurate test and VQ scan. Patient is comparing of cough without any sputum induction. Review of Systems REVIEW OF SYSTEMS: CONSTITUTIONAL: No fever, no malaise, no fatigue. HEENT: No recent visual problems or hearing problems. Denied any sore throat. CARDIOVASCULAR: No chest pain, orthopnea, PND, no palpitations, no syncope. PULMONARY:, no hemoptysis. GASTROINTESTINAL: No diarrhea, no nausea, no vomiting, no abdominal pain. Normoactive bowel sounds. NEUROLOGICAL: No headaches, no weakness, no numbness. HEMATOLOGICAL: Denies any bleeding or petechiae. GENITOURINARY: Denies any burning micturition, frequency, or urgency. MUSCULOSKELETAL/RHEUMATOLOGICAL: Denies any joint pain, swelling, or any muscle pain. ENDOCRINE: Denies any polyuria or polydipsia. The rest of the 14-point review of systems is negative. Past Medical History Past Medical History: Deep Vein Thrombosis (DVT), GERD/Reflux, Hypertension, Osteoarthritis (OA) Additional Past Medical History / Comment(s): DVT years ago after taking control, achalasia, osteoarthritis rt knee History of Any Multi-Drug Resistant Organisms: None Reported Past Surgical History: Cholecystectomy, Heart Catheterization Additional Past Surgical History / Comment(s): STATES ESOPHAGUS WAS TOO TIGHT AND THEY REMOVED HER RIB AND DID HILAR PROCEDURE, eye surg. as a baby Past Anesthesia/Blood Transfusion Reactions: No Reported Reaction Past Psychological History: Anxiety, Depression Smoking Status: Former smoker Past Alcohol Use History: Occasional Past Drug Use History: None Reported - Past Family History Father Family Medical History: Cancer Additional Family Medical History / Comment(s): PROSTATE CANCER Medications and Allergies Home Medications Medication Instructions Recorded Confirmed Type Venlafaxine HCl [Effexor XR] 150 mg PO DAILY 12/19/16 11/15/17 History Lisinopril-Hctz 20-25 mg 1 tab PO DAILY 03/06/17 11/15/17 History [Zestoretic 20-25] Omeprazole 20 mg PO BID 03/06/17 11/15/17 History Atorvastatin [Lipitor] 10 mg PO DAILY 10/04/17 11/15/17 History Multivitamins, Thera [Multivitamin 1 tab PO DAILY 10/04/17 11/15/17 History (formulary)] Albuterol Inhaler [Ventolin Hfa 1 - 2 puff INHALATION RT-Q6H PRN 11/15/17 History Inhaler] Ipratropium-Albuterol Nebulize 3 ml INHALATION RT-QID PRN 11/15/17 11/15/17 History [Duoneb 0.5 mg-3 mg/3 ml Soln] Vitamin B Complex 1 cap PO DAILY 11/15/17 11/15/17 History Vitamin D3(Unknown) 1 tab PO DAILY 11/15/17 11/15/17 History Allergies Allergy/AdvReac Type Severity Reaction Status Date / Time No Known Allergies Allergy Verified 11/15/17 19:07 Physical Exam Vitals: Vital Signs Temp Pulse Resp BP Pulse Ox 11/16/17 12:57 86 18 76/39 99 11/16/17 09:14 99 18 114/52 96 11/16/17 08:00 18 11/16/17 06:42 92/54 11/15/17 20:56 93 16 125/58 11/15/17 19:36 91 16 106/57 11/15/17 18:37 104 H 18 115/52 99 11/15/17 18:02 110 H 16 105/50 11/15/17 17:40 97.9 F 115 H 18 67/49 100 Intake and Output 11/15/17 11/16/17 11/16/17 22:59 06:59 14:59 Intake Total 522.1 Balance 522.1 Intake: Intake, IV Titration 522.1 Amount Heparin Sod,Pork in 0.45% 522.1 NaCl 25,000 unit In 0.45 % NaCl 1 500ml.bag @ 16. 324 UNITS/KG/HR 46 mls/hr IV .[id number] [facility] Rx#: [id number] Other: Voiding Method Toilet Weight 140.9 kg PHYSICAL EXAMINATION: GENERAL: The patient is alert and oriented x3, not in any acute distress. Obese HEENT: Pupils are round and equally reacting to light. EOMI. No scleral icterus. No conjunctival pallor. Normocephalic, atraumatic. No pharyngeal erythema. No thyromegaly. CARDIOVASCULAR: S1 and S2 present. No murmurs, rubs, or gallops. PULMONARY: Chest is clear to auscultation, no wheezing or crackles. ABDOMEN: Soft, nontender, nondistended, normoactive bowel sounds. No palpable organomegaly. MUSCULOSKELETAL: No joint swelling or deformity. EXTREMITIES: No cyanosis, clubbing, or pedal edema. Patient does have some redness may be from her previous thrombophlebitis or venous stasis in the right leg no tenderness questionable positive Burton sign NEUROLOGICAL: Gross neurological examination did not reveal any focal deficits. SKIN: No rashes. Results CBC & Chem 7: 11/15/17 18:21 11/15/17 18:21 Labs: Abnormal Lab Results - Last 24 Hours (Table) 11/15/17 11/15/17 11/15/17 Range/Units 18:21 18:21 21:57 WBC 14.5 H (3.8-10.6) k/uL Hgb 11.2 L (11.4-16.0) gm/dL Hct 33.2 L (34.0-46.0) % RDW 17.9 H (11.5-15.5) % Neutrophils # 11.7 H (1.3-7.7) k/uL APTT (22.0-30.0) sec D-Dimer (<0.60) mg/L FEU BUN 54 H (7-17) mg/dL Creatinine 2.10 H (0.52-1.04) mg/dL Glucose 113 H (74-99) mg/dL Calcium 11.0 H (8.4-10.2) mg/dL Magnesium 1.5 L (1.6-2.3) mg/dL Urine Appearance Cloudy H (Clear) Urine Protein 1+ H (Negative) Urine Glucose (UA) Trace H (Negative) Urine Blood Trace H (Negative) Ur Leukocyte Esterase Moderate H (Negative) Urine WBC 8 H (0-5) /hpf Ur Squamous Epith Cells 26 H (0-4) /hpf Amorphous Sediment Rare H (None) /hpf Urine Bacteria Many H (None) /hpf Hyaline Casts 48 H (0-2) /lpf Urine Mucus Many H (None) /hpf 11/16/17 11/16/17 Range/Units 09:00 09:00 WBC (3.8-10.6) k/uL Hgb (11.4-16.0) gm/dL Hct (34.0-46.0) % RDW (11.5-15.5) % Neutrophils # (1.3-7.7) k/uL APTT 126.9 H* (22.0-30.0) sec D-Dimer 9.94 H (<0.60) mg/L FEU BUN (7-17) mg/dL Creatinine (0.52-1.04) mg/dL Glucose (74-99) mg/dL Calcium (8.4-10.2) mg/dL Magnesium (1.6-2.3) mg/dL Urine Appearance (Clear) Urine Protein (Negative) Urine Glucose (UA) (Negative) Urine Blood (Negative) Ur Leukocyte Esterase (Negative) Urine WBC (0-5) /hpf Ur Squamous Epith Cells (0-4) /hpf Amorphous Sediment (None) /hpf Urine Bacteria (None) /hpf Hyaline Casts (0-2) /lpf Urine Mucus (None) /hpf Assessment and Plan Plan: -Shortness of breath: We'll have to rule out pulmonary embolism we'll obtain a bilateral lower limb Doppler and d-dimer. We will hydrate the patient if her creatinine improves we'll obtain a CT angios the chest tomorrow. Patient does have baseline restrictive lung disease may be contributing to her symptoms. -Hypertension patient is actually hypotensive hold off on antidepressant medications -Acute renal failure: Secondary to hypotension, IV fluids as mentioned above. Prerenal azotemia. -Past as well as reflux disease -Hyperlipidemia History of COPD as well as sleep apnea -Morbid obesity
--- NOTE | 2017-11-16 14:05 | US ---
"EXAMINATION TYPE: US venous doppler duplex LE BI DATE OF EXAM: 11/16/2017 12:13 PM COMPARISON: US lower extremity 10/31/2017 CLINICAL HISTORY: r/o DVT. Pt states bilat leg pain, history of SVT SIDE PERFORMED: Bilateral TECHNIQUE: The lower extremity deep venous system is examined utilizing real time linear array sonog harsh with graded compression, doppler sonography and color-flow sonography. VESSELS IMAGED: External Iliac Vein (EIV) Common Femoral Vein Deep Femoral Vein Greater Saphenous Vein * Femoral Vein Popliteal Vein Small Saphenous Vein * Proximal Calf Veins (* superficial vessels) Grayscale, color doppler, spectral doppler imaging performed of the deep veins of the lower extremiti es. There is normal flow, compressibility, vascular waveforms. Right Leg: + DVT Mid Popliteal vein to proximal calf veins, SVT right small saph vein Left Leg: + DVT distal fem vein to proximal calf veins, Brown's cyst left pop fossa= 4.5 x 1.0 x 2.9 cm IMPRESSION: Bilateral deep venous thrombosis within the leg veins extending to the mid popliteal v ein on the right, peripheral femoral vein on the left. Superficial venous thrombosis also noted. A Red level critical message alert has been initiated for [facility] via the [employer] | Critical Results System on 11/16/2017 2:03 PM. This message alert has been sent to [facility] via the preferences provided by the clinician for the receipt of Radiology Critical Findings. Message ID [id number]."
[2017-11-16 15:42] VITALS: BMI 33.1
[2017-11-16] MEDS: SODIUM CHLORIDE 0.9% 1,000 ML IV SCH ×2 (18:50→22:50)
[2017-11-17] MEDS: SODIUM CHLORIDE 0.9% 1,000 ML IV SCH ×2 (07:00→11:45)
[2017-11-17] MEDS: HEPARIN SOD,PORK IN 0.45% NACL 25,000 UNIT in 0.45% NACL 1 500ML.BAG IV SCH ×2 (07:01→11:45)
[2017-11-17] MEDS ORDERED: VENLAFAXINE HCL ER 150 MG CAP PO SCH (09:00)
[2017-11-17] MEDS ORDERED: ATORVASTATIN 10 MG TAB PO SCH (09:00)
[2017-11-17] MEDS: PANTOPRAZOLE 40 MG TABLET PO SCH (09:29)
[2017-11-17 09:39] LABS: Anisocytosis Slight; Basophils # (A) 0.1 k/uL (0-0.2); Basophils % (A) 1 %; Eosinophils # (A) 0.1 k/uL (0-0.7); Eosinophils % (A) 1 %; HCT 27.2 % (34.0-46.0); Lymphocytes # (A) 3.1 k/uL (1.0-4.8); Lymphocytes % (A) 28 %; MCH 28.7 pg (25.0-35.0); MCHC 32.2 g/dL (31.0-37.0); Mean Platelet Volume 6.9; Monocytes # (A) 0.5 k/uL (0-1.0); Monocytes % (A) 5 %; Neutrophils # (A) 7.1 k/uL (1.3-7.7); Neutrophils % (A) 64 %; Platelet Count 316 k/uL (150-450); RBC 3.06 m/uL (3.80-5.40); RDW 17.6 % (11.5-15.5); WBC 11.2 k/uL (3.8-10.6)
[2017-11-17 09:57] LABS: HGB 8.8 gm/dL (11.4-16.0)
[2017-11-17 10:04] LABS: Calcium 9.4 mg/dL (8.4-10.2); Potassium 4.4 mmol/L (3.5-5.1)
[2017-11-17 10:13] VITALS: RESP 18
[2017-11-17] MEDS ORDERED: APIXABAN 5 MG TAB PO SCH (13:15)
--- NOTE | 2017-11-17 14:06 | P.DS ---
Providers Date of admission: 11/15/17 21:52 Attending physician: Richard Kendrick Primary care physician: Juanito [facility] Course: 52-year-old pleasant female was treated in the past for COPD given comments of shortness of breath patient mostly history of restrictive lung disease from obesity and sleep apnea. Patient came in with the him been some shortness of breath patient does not appear to have any significantly elevated JVD does not have any pulmonary edema but does have elevated BNP. Patient denied any orthopnea PND patient clinically does not appear to be in CHF patient is not in heart failure exacerbation because of her continued shortness of breath a VQ scan was obtained to rule out pulmonary embolism as her creatinine is elevated to 2.5 which showed intermediate probability for PE. I'll obtain a d-dimer and bilateral lower limb Doppler patient did upon questioning did complain of right calf pain and patient does have some localized venous stasis redness in the right leg and does have varicose veins. Patient doesn't ambulate much. Patient during her recent hospitalization was treated for COPD exacerbation. Patient was recently treated for superficial thrombophlebitis. Patient baseline creatinine is actually around 0.9 all will hydrate her repeat creatinine again tomorrow after which probably can get a CT angios the chest for pulmonary embolism which is more accurate test and VQ scan. Patient is comparing of cough without any sputum induction. 11/17/2017 Patient has a DVT in bilateral lower extremities patient will be discharged on eliquis precipitated by mostly non-ambulation morbid obesity. Patient's creatinine improved now patient's antidepressive medication is being discontinued as patient is hypotensive and patient has renal failure at this time. PHYSICAL EXAMINATION: GENERAL: The patient is alert and oriented x3, not in any acute distress. Obese HEENT: Pupils are round and equally reacting to light. EOMI. No scleral icterus. No conjunctival pallor. Normocephalic, atraumatic. No pharyngeal erythema. No thyromegaly. CARDIOVASCULAR: S1 and S2 present. No murmurs, rubs, or gallops. PULMONARY: Chest is clear to auscultation, no wheezing or crackles. ABDOMEN: Soft, nontender, nondistended, normoactive bowel sounds. No palpable organomegaly. MUSCULOSKELETAL: No joint swelling or deformity. EXTREMITIES: No cyanosis, clubbing, or pedal edema. Patient does have some redness may be from her previous thrombophlebitis or venous stasis in the right leg no tenderness questionable positive Burton sign NEUROLOGICAL: Gross neurological examination did not reveal any focal deficits. SKIN: No rashes. Assessment and Plan Plan: -Shortness of breath: Probably due to pulmonary embolism. Patient has bilateral lower limb DVT. I'll not do any other CAT scan of the chest rule out PE as patient is given anti-coagulation any way. -Hypertension patient is actually hypotensive and does have acute renal failure secondary to antidepressive medications which were discontinued -Acute renal failure: Secondary to hypotension, acute renal failure resolved at -Past as well as reflux disease -Hyperlipidemia History of COPD as well as sleep apnea -Morbid obesity sinus tachycardia secondary to pulmonary embolism Patient Condition at Discharge: Fair Plan - Discharge Summary New Discharge Prescriptions: New Apixaban [Eliquis] 10 mg PO BID #13 tab Apixaban [Eliquis] 5 mg PO BID #60 tab Discontinued Lisinopril-Hctz 20-25 mg [Zestoretic 20-25] 1 tab PO DAILY No Action Venlafaxine HCl [Effexor XR] 150 mg PO DAILY Omeprazole 20 mg PO BID Multivitamins, Thera [Multivitamin (formulary)] 1 tab PO DAILY Atorvastatin [Lipitor] 10 mg PO DAILY Vitamin B Complex 1 cap PO DAILY Albuterol Inhaler [Ventolin Hfa Inhaler] 1 - 2 puff INHALATION RT-Q6H PRN PRN Reason: Shortness Of Breath Vitamin D3(Unknown) 1 tab PO DAILY Ipratropium-Albuterol Nebulize [Duoneb 0.5 mg-3 mg/3 ml Soln] 3 ml INHALATION RT-QID PRN PRN Reason: Shortness Of Breath Discharge Medication List Venlafaxine HCl [Effexor XR] 150 mg PO DAILY 12/19/16 [History] Omeprazole 20 mg PO BID 03/06/17 [History] Atorvastatin [Lipitor] 10 mg PO DAILY 10/04/17 [History] Multivitamins, Thera [Multivitamin (formulary)] 1 tab PO DAILY 10/04/17 [History ] Albuterol Inhaler [Ventolin Hfa Inhaler] 1 - 2 puff INHALATION RT-Q6H PRN [History] Ipratropium-Albuterol Nebulize [Duoneb 0.5 mg-3 mg/3 ml Soln] 3 ml INHALATION RT -QID PRN 11/15/17 [History] Vitamin B Complex 1 cap PO DAILY 11/15/17 [History] Vitamin D3(Unknown) 1 tab PO DAILY 11/15/17 [History] Apixaban [Eliquis] 5 mg PO BID #60 tab 11/17/17 [Rx] Apixaban [Eliquis] 10 mg PO BID #13 tab 11/17/17 [Rx] Follow up Appointment(s)/Referral(s): Juanito Abreu DO [Primary Care Provider] - 1-2 days
[2017-11-17 14:56] VITALS: BP 142/57; PULSE 88; TEMP 97
== END 2017-11-17 16:52 | disposition home or self-care (01) | DRG 176 ==
LOC: EC 16:55 → 6SEL 21:52
PROVIDERS: ADMIT Internal Medicine; ATTEND Internal Medicine
DX: I26.99 Other pulmonary embolism without acute cor pulmonale (principal); I82.403 Acute embolism and thrombosis of unspecified deep veins of lower extremity, bilateral; N17.9 Acute kidney failure, unspecified; Z68.42 Body mass index [BMI] 45.0-49.9, adult; E66.01 Morbid (severe) obesity due to excess calories; E78.5 Hyperlipidemia, unspecified; F32.9 Major depressive disorder, single episode, unspecified; F41.9 Anxiety disorder, unspecified; G47.30 Sleep apnea, unspecified; I10 Essential (primary) hypertension; I83.90 Asymptomatic varicose veins of unspecified lower extremity; I87.8 Other specified disorders of veins; J44.9 Chronic obstructive pulmonary disease, unspecified; J98.4 Other disorders of lung; K21.9 Gastro-esophageal reflux disease without esophagitis; M81.0 Age-related osteoporosis without current pathological fracture; K22.0 Achalasia of cardia; M19.90 Unspecified osteoarthritis, unspecified site; I95.9 Hypotension, unspecified; R11.2 Nausea with vomiting, unspecified; R19.7 Diarrhea, unspecified; E86.0 Dehydration; Z79.899 Other long term (current) drug therapy; Z87.891 Personal history of nicotine dependence; Z86.72 Personal history of thrombophlebitis; Z86.718 Personal history of other venous thrombosis and embolism; Z90.49 Acquired absence of other specified parts of digestive tract; Z87.01 Personal history of pneumonia (recurrent)
CPT/HCPCS: 36415; 71045; 78582; 80048; 80053; 81001; 83605; 83735; 83880; 84484; 85025; 85379; 85610; 85730; 93005; 93970; 96361; 96365; 96366; 96367; 96368; 96375; 96376; 99285

== ENCOUNTER 2017-11-29 11:59 | Emergency (ER) | payer OTHER ==
--- NOTE | 2017-11-29 12:55 | ED ---
Extremity Problem HPI - General Chief complaint: Extremity Problem,Nontraumatic Stated complaint: Leg to toe Swelling Time Seen by Provider: 11/29/17 12:20 Source: patient, RN notes reviewed Mode of arrival: ambulatory Limitations: no limitations - History of Present Illness Initial comments: This a 51-year-old female presents emergency Department with chief complaint of increased swelling to her left lower extremity. Patient states she is here 2 weeks and found to HAVE PE AND BILATERAL DVTS. PATIENT STATES THAT SHE HAS BEEN TAKING HER ELIQUIS DIRECTED RECENTLY DROPPED DOWN TO 5 MG TWICE A DAY. PATIENT STATES THAT SHE COMPLETED HER WEEK OF 10 MG TWICE A DAY. PATIENT STATES THAT SHE HASN'T SOME WORSENING SYMPTOMS THE DAY GOES ON AND SHE STATES THAT SHE RECENTLY RETURNED TO WORK. SHE STATES THAT SHE'S HAD NO FEVER OR CHILLS. Patient denies any discoloration to her leg - Related Data Home Medications Medication Instructions Recorded Confirmed Venlafaxine HCl [Effexor XR] 150 mg PO DAILY 12/19/16 11/29/17 Omeprazole 20 mg PO BID 03/06/17 11/29/17 Atorvastatin [Lipitor] 10 mg PO DAILY 10/04/17 11/29/17 Multivitamins, Thera [Multivitamin 1 tab PO DAILY 10/04/17 11/29/17 (formulary)] Albuterol Inhaler [Ventolin Hfa 1 - 2 puff INHALATION RT-Q6H PRN 11/15/17 Inhaler] Ipratropium-Albuterol Nebulize 3 ml INHALATION RT-QID PRN 11/15/17 11/29/17 [Duoneb 0.5 mg-3 mg/3 ml Soln] Lisinopril [Prinivil] 10 mg PO DAILY 11/29/17 11/29/17 Magnesium Oxide [Mag-Ox] 400 mg PO DAILY 11/29/17 11/29/17 Previous Rx's Medication Instructions Recorded Apixaban [Eliquis] 5 mg PO BID #60 tab 11/17/17 Allergies Allergy/AdvReac Type Severity Reaction Status Date / Time No Known Allergies Allergy Verified 11/29/17 12:35 Review of Systems ROS Statement: Those systems with pertinent positive or pertinent negative responses have been documented in the HPI. ROS Other: All systems not noted in ROS Statement are negative. Past Medical History Past Medical History: Deep Vein Thrombosis (DVT), GERD/Reflux, Hypertension, Osteoarthritis (OA) Additional Past Medical History / Comment(s): DVT years ago after taking control, achalasia, osteoarthritis rt knee History of Any Multi-Drug Resistant Organisms: None Reported Past Surgical History: Cholecystectomy, Heart Catheterization Additional Past Surgical History / Comment(s): STATES ESOPHAGUS WAS TOO TIGHT AND THEY REMOVED HER RIB AND DID HILAR PROCEDURE, eye surg. as a baby Past Anesthesia/Blood Transfusion Reactions: No Reported Reaction Past Psychological History: Anxiety, Depression Smoking Status: Former smoker Past Alcohol Use History: Occasional Past Drug Use History: None Reported - Past Family History Father Family Medical History: Cancer Additional Family Medical History / Comment(s): PROSTATE CANCER General Exam Limitations: no limitations General appearance: alert, in no apparent distress Head exam: Present: atraumatic, normocephalic, normal inspection Respiratory exam: Present: normal lung sounds bilaterally. Absent: respiratory distress, wheezes, rales, rhonchi, stridor Cardiovascular Exam: Present: regular rate, normal rhythm, normal heart sounds. Absent: systolic murmur, diastolic murmur, rubs, gallop, clicks Extremities exam: Present: other (left leg there is moderate swelling, pedal pulses equal bilaterally ) Skin exam: Present: warm, dry Course Vital Signs 11/29/17 12:17 Temperature 98.1 F Pulse Rate 107 H Respiratory 18 Rate Blood Pressure 184/76 O2 Sat by Pulse 95 Oximetry Medical Decision Making - Medical Decision Making 52-year-old female presented for increased swelling of her leg with no blood clot. Patient has no changes an ultrasound she does have Brown's cyst. Patient 's swelling seems to be dependent at is worse throughout the day. She is advised to elevate and follow-up with her primary care physician. Disposition Clinical Impression: Leg edema, Left leg DVT, Brown's cyst of knee Disposition: HOME SELF-CARE Condition: Stable Instructions: Leg Edema (ED) Additional Instructions: Please return to the Emergency Department if symptoms worsen or any other concerns. Is patient prescribed a controlled substance at d/c from ED?: No Referrals: Juanito Abreu DO [Primary Care Provider] - 1-2 days Time of Disposition: 14:22
--- NOTE | 2017-11-29 14:01 | US ---
EXAMINATION TYPE: US venous doppler duplex LE LT DATE OF EXAM: 11/29/2017 12:48 PM COMPARISON: US CLINICAL HISTORY: Pain. SIDE PERFORMED: Left TECHNIQUE: The lower extremity deep venous system is examined utilizing real time linear array sonog harsh with graded compression, doppler sonography and color-flow sonography. VESSELS IMAGED: External Iliac Vein (EIV) Common Femoral Vein Deep Femoral Vein Greater Saphenous Vein * Femoral Vein Popliteal Vein Small Saphenous Vein * Proximal Calf Veins (* superficial vessels) Left Leg: Positive for DVT starting in the distal femoral vein and extending through the proximal ca lf veins. IMPRESSION: 1. Findings compatible with DVT involving the distal common femoral vein extending into the calf. 2. Popliteal fossa cyst measuring 4 x 2 cm.
[2017-11-29 14:44] VITALS: BP 157/72; PULSE 88; RESP 19; TEMP 98.2
== END 2017-11-29 14:35 | disposition home or self-care (01) ==
LOC: EC 11:59
DX: I82.412 Acute embolism and thrombosis of left femoral vein (principal); I82.4Z2 Acute embolism and thrombosis of unspecified deep veins of left distal lower extremity; M71.22 Synovial cyst of popliteal space [Baker], left knee; K21.9 Gastro-esophageal reflux disease without esophagitis; I10 Essential (primary) hypertension; F41.9 Anxiety disorder, unspecified; F32.9 Major depressive disorder, single episode, unspecified; Z86.718 Personal history of other venous thrombosis and embolism; Z95.818 Presence of other cardiac implants and grafts; Z87.891 Personal history of nicotine dependence; Z79.899 Other long term (current) drug therapy
CPT/HCPCS: 99283

== ENCOUNTER → 2018-01-10 | Outpatient (CLI) | payer OTHER ==
--- NOTE | 2018-01-14 11:32 | MM ---
Reason for exam: screening (asymptomatic). Last mammogram was performed 1 year and 2 months ago. History: Patient is postmenopausal. Took hormonal contraceptives for 3 months beginning at age 17. Physical Findings: A clinical breast exam by your physician is recommended on an annual basis and results should be correlated with mammographic findings. MG 3D Screening Mammo W/Cad Bilateral CC and MLO view(s) were taken. Prior study comparison: November 24, 2016, bilateral MG screening mammo w CAD. October 23, 2014, bilateral MG screening mammo w CAD. The breast tissue is almost entirely fat. No significant changes when compared with prior studies. ASSESSMENT: Benign, BI-RAD 2 RECOMMENDATION: Routine screening mammogram of both breasts in 1 year.
== END | disposition home or self-care (01) ==
LOC: RADMAMWWP 12:24
PROVIDERS: ATTEND Family Medicine
DX: Z12.31 Encounter for screening mammogram for malignant neoplasm of breast (principal)
CPT/HCPCS: 77063; 77067

== ENCOUNTER 2018-06-07 12:14 | Day surgery (SDC) | payer OTHER ==
[2018-06-05 08:59] VITALS: BMI 45.9
[~2018-06-07 12:14] MED LIST changes: +DEXAMETHASONE SOD PHOSPHATE 10 MG/ML 1 ML VIAL IV ONE; +HYDROmorphone 0.5 MG/0.5 ML SYRINGE IVP PRN; -LACTATED RINGERS 1,000 ML IV SCH; +MIDAZOLAM 2 MG/2 ML VIAL IV PRN; +ONDANSETRON 4 MG/2 ML VIAL IVP ONE; +Pre Op ABX Message 1 EACH MISC MISCELLANE ONE; +SCOPOLAMINE 1.5MG/72HR PATCH TRANSDERM ONE
[2018-06-07] MEDS: LACTATED RINGERS 1,000 ML IV SCH ×2 (12:49→14:09)
[2018-06-07] MEDS ORDERED: LIDOCAINE 1% 20 ML VIAL (10MG/ML) FOR IV START INTRADERMA ONE (12:52)
[2018-06-07] MEDS ORDERED: FAMOTIDINE 20 MG/2 ML VIAL IV ONE (12:52)
[2018-06-07] MEDS ORDERED: fentaNYL (PF) 50 MCG/ML 2 ML AMP ONE (14:14)
[2018-06-07] MEDS ORDERED: PROPOFOL 10 MG/ML 20 ML VIAL IV ONE (14:14)
[2018-06-07] MEDS ORDERED: KETAMINE 10 MG/ML 20 ML VIAL ONE (14:14)
[2018-06-07] MEDS ORDERED: MIDAZOLAM 2 MG/2 ML VIAL ONE (14:14)
[2018-06-07] MEDS ORDERED: LIDOCAINE HCL/PF 20 MG/ML ML SQ ONE (14:31)
[2018-06-07] MEDS ORDERED: BUPIVACAIN-EPI 0.25%-1:200,000 30 ML VIAL SQ ONE (15:02)
[2018-06-07 15:32] VITALS: TEMP 97
[2018-06-07 15:35] VITALS: RESP 16
[2018-06-07 16:20] VITALS: BP 178/95; PULSE 88
--- NOTE | 2018-06-09 10:03 | P.OP ---
Date of Procedure: 06/07/18 Preoperative Diagnosis: Right carpal tunnel syndrome Postoperative Diagnosis: Right carpal tunnel syndrome Procedure(s) Performed: Right endoscopic carpal tunnel release Anesthesia: THONY Surgeon: Oscar Lechuga Estimated Blood Loss (ml): 1 Pathology: none sent Condition: stable Disposition: PACU Indications for Procedure: The patient is a 53-year-old female who was evaluated in the office and diagnosed with bilateral carpal tunnel syndrome. Treatment options were discussed and she elected to proceed with surgical release, beginning with the right side. Risks and benefits were discussed in the office and reviewed preoperatively. Questions were invited and answered. The patient expressed understanding and wished to proceed with surgery. Surgical site was marked and consents were signed. Description of Procedure: After informed consent was obtained, the patient was brought to the operative suite by the anesthesia team. General endotrachial anesthesia was administered uneventfully. A tourniquet was placed on the right arm. A time-out was performed which confirmed the patient, the operative side, site and the procedure to be performed. All team members expressed agreement. Using aseptic technique, local anesthetic was injected into the subcutaneous tissues around the planned incision. The right upper extremity was then prepped and draped in standard, sterile fashion. The limb was exsanguinated with an Esmarch and the tourniquet was inflated. A transverse incision was marked just proximal to the wrist flexion crease, in line with the radial border of the ring finger. The skin was sharply incised and the subcutaneous tissues were spread. The volar carpal fascia was identified and sharply incised. A synovial elevator was used to release adhesions on the underside of the transverse carpal ligament. A dilator was used to sound and enlarge the carpal tunnel (which was found to be quite tight) . The hamate hook was palpable ulnarly. The side-specific guide and camera were inserted. The ligament was clearly visualized above. The endoscopic blade was inserted and the distal half of the ligament was sharply divided. Residual transverse fibers were released distally and then the proximal portion of the ligament was incised. Wide release of ligament was visually confirmed. The camera was removed. Under direct visualization with Ioupe magnification, the volar carpal fascia was released distally and proximally with scissors. The median nerve found to be flattened and encased in thickened perineural tissue. A limited neurolysis was performed. The tourniquet was released and good hemostasis confirmed. The wound was thoroughly irrigated and the incision was closed with interrupted 4-0 Nylon sutures. Additional local anesthetic (marcaine without epinephrine) was injected for postoperative pain control. A soft, sterile dressing was applied. All sponge and needle counts were correct at the end of the case. The patient tolerated the procedure well. Anesthesia was reversed uneventfully and the patient was transferred to recovery in stable condition.
== END 2018-06-07 16:47 | disposition home or self-care (01) ==
LOC: OR 12:14
PROVIDERS: ATTEND Orthopaedic Surgery
DX: G56.01 Carpal tunnel syndrome, right upper limb (principal); I10 Essential (primary) hypertension; Z86.718 Personal history of other venous thrombosis and embolism; Z86.711 Personal history of pulmonary embolism; Z87.891 Personal history of nicotine dependence; K21.9 Gastro-esophageal reflux disease without esophagitis; F41.9 Anxiety disorder, unspecified; F32.9 Major depressive disorder, single episode, unspecified; Z79.01 Long term (current) use of anticoagulants; Z79.899 Other long term (current) drug therapy
CPT/HCPCS: 29848; J2250; J1100; J2405; J3010; J2704; J2001

== ENCOUNTER → 2018-06-28 | Day surgery (SDC) | payer OTHER ==
[2018-06-25 10:26] VITALS: BMI 45.2
[~2018-06-28] MED LIST changes: +BUPIVACAINE-EPI 0.5%-1:200,000 10 ML VIAL SQ ONE; +LACTATED RINGERS 1,000 ML IV ONE; +LACTATED RINGERS 1,000 ML IV SCH; +LIDOCAINE 1% 20 ML VIAL (10MG/ML) FOR IV START SQ ONE; +LIDOCAINE 1% INJ 10MG/ML (20 ML MDV) ONE; +LIDOCAINE 2% INJ 20 MG/ML SQ ONE; +MIDAZOLAM (PF) 2 MG/2 ML VIAL IV PRN; -MIDAZOLAM 2 MG/2 ML VIAL IV PRN; +MIDAZOLAM 2 MG/2 ML VIAL ONE; +PROPOFOL 10 MG/ML 20 ML VIAL IV ONE; +SUCCINYLCHOLINE CHLORIDE 100 MG/5 ML SYR IV ONE; +fentaNYL (PF) 50 MCG/ML 2 ML AMP ONE
--- NOTE | 2018-06-28 14:12 | P.OP ---
Date of Procedure: 06/28/18 Preoperative Diagnosis: Left carpal tunnel syndrome Postoperative Diagnosis: Left carpal tunnel syndrome Procedure(s) Performed: Left endoscopic carpal tunnel release Anesthesia: THONY, local Surgeon: Oscar Lechuga Estimated Blood Loss (ml): 2 Pathology: none sent Condition: stable Disposition: PACU Indications for Procedure: The patient is a 53-year-old female who was diagnosed with bilateral carpal tunnel syndrome and previously underwent release of the right side. She returns today for release of the left side. Previously discussed risks and benefits were reviewed preoperatively. Questions were invited and answered. The patient expressed understanding and wished to proceed with surgery. Surgical site was marked and consents were signed. Description of Procedure: After informed consent was obtained, the patient was brought to the operative suite by the anesthesia team. General endotrachial anesthesia was administered uneventfully. A tourniquet was placed on the left arm. A time-out was performed which confirmed the patient, the operative side, site and the procedure to be performed. All team members expressed agreement. Using aseptic technique, local anesthetic was injected into the subcutaneous tissues around the planned incision. The left upper extremity was then prepped and draped in standard, sterile fashion. The limb was exsanguinated with an Esmarch and the tourniquet was inflated. A 1.5 cm transverse incision was marked just proximal to the wrist flexion crease, in line with the radial border of the ring finger. The skin was sharply incised and the subcutaneous tissues were spread. The volar carpal fascia was identified and sharply incised. A small portion of the proximal fascia was released to facilitate access to the tunnel. A synovial elevator was used to release adhesions on the underside of the transverse carpal ligament. A dilator was used to sound and enlarge the carpal tunnel. The hamate hook was palpable ulnarly. The side-specific guide and camera were inserted. The ligament was clearly visualized above. The endoscopic blade was inserted and the distal half of the ligament was sharply divided. Residual transverse fibers were released distally and then the proximal portion of the ligament was incised. Wide release of ligament was visually confirmed. The camera was removed. Under direct visualization with loupe magnification, the volar carpal fascia was released distally and proximally with scissors. The median nerve had a mildly flattened appearance with injected perineural vasculature. This was not adherent and no neurolysis was performed. The tourniquet was released and good hemostasis was confirmed. The wound was thoroughly irrigated with normal saline and the incision was closed with interrupted 4-0 Nylon sutures. Additional local anesthetic (marcaine with epinephrine) was injected for postoperative pain control. A soft, sterile dressing was applied. All sponge and needle counts were correct at the end of the case. The patient tolerated the procedure well. Anesthesia was reversed uneventfully and the patient was transferred to recovery in stable condition.
[2018-06-28 14:19] VITALS: TEMP 97.7
[2018-06-28 14:42] VITALS: BP 129/75; PULSE 84; RESP 17
== END | disposition home or self-care (01) ==
LOC: OR 10:47
PROVIDERS: ATTEND Orthopaedic Surgery
DX: G56.02 Carpal tunnel syndrome, left upper limb (principal); K21.9 Gastro-esophageal reflux disease without esophagitis; I10 Essential (primary) hypertension; F32.9 Major depressive disorder, single episode, unspecified; J44.9 Chronic obstructive pulmonary disease, unspecified; K22.0 Achalasia of cardia; Z79.899 Other long term (current) drug therapy; Z79.01 Long term (current) use of anticoagulants; Z82.49 Family history of ischemic heart disease and other diseases of the circulatory system; Z86.718 Personal history of other venous thrombosis and embolism; Z87.891 Personal history of nicotine dependence; Z86.711 Personal history of pulmonary embolism
CPT/HCPCS: 29848; J2001 ×2; J2250; J1100; J2405; J3010; J0330; J2704

== ENCOUNTER 2020-02-07 00:23 | Emergency (ER) | payer BC, OTHER ==
[2020-02-07 00:34] VITALS: BP 150/86; PULSE 87; RESP 20; TEMP 98
[2020-02-07 01:13] LABS: Appearance,Urine Turbid (Clear); Bacteria,Urine Occasional /hpf; Bilirubin,Urine Negative (Negative); Blood,Urine Moderate (Negative); Budding Yeast,Urine Few /hpf; Color,Urine Yellow; Glucose,Urine (UA) Negative (Negative); Hyaline Casts,Urine 2 /lpf (0-2); Ketones,Urine Negative (Negative); Leukocyte Esterase,Urine Moderate (Negative); Mucus,Urine Rare /hpf; Nitrite,Urine Negative (Negative); PH, Urine 5.5 (5.0-8.0); Protein,Urine Trace (Negative); RBC,Urine 5 /hpf (0-5); Specific Gravity,Urine 1.028 (1.001-1.035); Squamous Epithelial Cell,Urine 17 /hpf (0-4); Urobilinogen,Urine <2.0 mg/dL (<2.0); WBC,Urine 6 /hpf (0-5)
[2020-02-07] MEDS ORDERED: FLUCONAZOLE 150 MG TAB PO STA (01:40)
[2020-02-07] MEDS ORDERED: PHENAZOPYRIDINE 100 MG TAB PO STA (01:40)
[2020-02-07] MEDS ORDERED: CEPHALEXIN 500MG STARTER PACK 4 CAP BTL PO STA (01:40)
--- NOTE | 2020-02-07 01:45 | ED ---
Female Urogenital HPI - General Chief complaint: Urogenital Stated complaint: Back Pain Time Seen by Provider: 02/07/20 01:18 Source: patient Mode of arrival: ambulatory Limitations: no limitations - History of Present Illness Initial comments: Mercedes is a 55-year-old female who presents to the emergency department today via private vehicle for evaluation of dysuria, hematuria left-sided flank pain. Patient reports she has a history of urinary infections and ear infections and kidney. She denies any fevers chills nausea or vomiting. She reports her pain is in her left flank no midline back pain. No neurologic deficits. - Related Data Home Medications Medication Instructions Recorded Confirmed Venlafaxine HCl [Effexor XR] 150 mg PO QAM 12/19/16 06/25/18 Omeprazole 20 mg PO BID 03/06/17 06/25/18 Atorvastatin [Lipitor] 10 mg PO HS 10/04/17 06/28/18 Multivitamins, Thera [Multivitamin 1 tab PO DAILY 10/04/17 06/25/18 (formulary)] Albuterol Inhaler (Mhu) [Ventolin 1 - 2 puff INHALATION RT-Q6H PRN 11/15/17 06/28/18 Hfa Inhaler] Ipratropium-Albuterol Nebulize 3 ml INHALATION RT-QID PRN 11/15/17 06/28/18 [Duoneb 0.5 mg-3 mg/3 ml Soln] Magnesium Oxide [Mag-Ox] 400 mg PO DAILY 11/29/17 06/25/18 Ascorbic Acid [Vitamin C] 500 mg PO DAILY 06/05/18 06/25/18 Irbesartan [Avapro] 150 mg PO QAM 06/05/18 06/25/18 Previous Rx's Medication Instructions Recorded Apixaban [Eliquis] 5 mg PO BID #60 tab 11/17/17 Cephalexin [Keflex] 500 mg PO Q6HR 1 Days #4 cap 02/07/20 Cephalexin [Keflex] 500 mg PO Q6HR 7 Days #28 cap 02/07/20 Fluconazole [Diflucan] 150 mg PO ONCE #2 tab 02/07/20 Phenazopyridine HCl [Pyridium] 200 mg PO TID #9 tablet 02/07/20 Phenazopyridine HCl [Pyridium] 200 mg PO TID #9 tablet 02/07/20 Allergies Allergy/AdvReac Type Severity Reaction Status Date / Time No Known Allergies Allergy Verified 02/07/20 00:34 Review of Systems ROS Statement: Those systems with pertinent positive or pertinent negative responses have been documented in the HPI. ROS Other: All systems not noted in ROS Statement are negative. Past Medical History Past Medical History: Deep Vein Thrombosis (DVT), GERD/Reflux, Hypertension, Osteoarthritis (OA), Pneumonia, Pulmonary Embolus (PE) Additional Past Medical History / Comment(s): DVT years ago after taking control, achalasia, restrictive lung disease. Hx Pneumonia September 2017. October 2017 DVT and PE with poor liver and kidney function at that time. Bilateral leg swelling at times, wears compression stockings to work. History of Any Multi-Drug Resistant Organisms: None Reported Past Surgical History: Cholecystectomy, Heart Catheterization, Orthopedic Surgery Additional Past Surgical History / Comment(s): [facility] 06/07/18,STATES ESOPHAGUS WAS TOO TIGHT AND THEY REMOVED HER RIB AND DID HILAR PROCEDURE, eye surgery as a baby. Past Anesthesia/Blood Transfusion Reactions: No Reported Reaction Past Psychological History: Anxiety, Depression Smoking Status: Former smoker Past Alcohol Use History: Occasional Past Drug Use History: None Reported - Past Family History Father Family Medical History: Cancer Additional Family Medical History / Comment(s): PROSTATE CANCER Sister(s) Family Medical History: Cancer Additional Family Medical History / Comment(s): Skin cancer. General Exam - General Exam Comments Initial Comments: Physical Exam GENERAL: Patient is well-developed and well-nourished. Patient is nontoxic and well-hydrated and is in no distress. HENT: Normocephalic, Atraumatic. EYES: PERRL, EOMI PULMONARY: Unlabored respirations. CARDIOVASCULAR: RRR Warm and well perfused extremities ABDOMEN: Non-distended Pain with percussion of the left flank SKIN: No rashes or bruising : Deferred NEUROLOGIC: Alert and oriented Normal speech Normal gait MUSCULOSKELETAL: Moving all extremities with no apparent injury PSYCHIATRIC: No SI/HI Limitations: no limitations Course Vital Signs 02/07/20 00:28 Temperature 98 F Pulse Rate 87 Respiratory 20 Rate Blood Pressure 150/86 O2 Sat by Pulse 95 Oximetry Medical Decision Making - Medical Decision Making Patient was seen and evaluated history is obtained from patient History and physical exam are concerning for left-sided flank pain controlled, patient's urine is grossly contaminated but we will treat for urinary tract infection in addition I discussed possibility of kidney stone the patient at this time she is comfortable with plan for discharge home continued home medications. - Lab Data Lab Results 02/07/20 Range/Units 00:54 Urine Color Yellow Urine Appearance Turbid H (Clear) Urine pH 5.5 (5.0-8.0) Ur Specific [place] 1.028 (1.001-1.035) Urine Protein Trace H (Negative) Urine Glucose (UA) Negative (Negative) Urine Ketones Negative (Negative) Urine Blood Moderate H (Negative) Urine Nitrite Negative (Negative) Urine Bilirubin Negative (Negative) Urine Urobilinogen <2.0 (<2.0) mg/dL Ur Leukocyte Esterase Moderate H (Negative) Urine RBC 5 (0-5) /hpf Urine WBC 6 H (0-5) /hpf Urine WBC Clumps Few H (None) /hpf Ur Squamous Epith Cells 17 H (0-4) /hpf Urine Bacteria Occasional H (None) /hpf Hyaline Casts 2 (0-2) /lpf Urine Mucus Rare H (None) /hpf Urine Yeast (Budding) Few H (None) /hpf Disposition Clinical Impression: UTI (urinary tract infection), Vaginal yeast infection Disposition: HOME SELF-CARE Condition: Stable Additional Instructions: Take medications as prescribed Follow up with primary care doctor next week for repeat urinalysis to ensure UTI has cleared Return to the ER for any worsening pain, fevers, nausea or vomiting inability to take your antibiotics or development of new or concerning symptoms Prescriptions: Fluconazole [Diflucan] 150 mg PO ONCE #2 tab Cephalexin [Keflex] 500 mg PO Q6HR 1 Days #4 cap Cephalexin [Keflex] 500 mg PO Q6HR 7 Days #28 cap Phenazopyridine HCl [Pyridium] 200 mg PO TID #9 tablet Phenazopyridine HCl [Pyridium] 200 mg PO TID #9 tablet Is patient prescribed a controlled substance at d/c from ED?: No Referrals: Juanito Abreu DO [Primary Care Provider] - 1-2 days
== END 2020-02-07 01:55 | disposition home or self-care (01) ==
LOC: EC 00:23
DX: N39.0 Urinary tract infection, site not specified (principal); B37.3 Candidiasis of vulva and vagina; I10 Essential (primary) hypertension; K21.9 Gastro-esophageal reflux disease without esophagitis; F41.9 Anxiety disorder, unspecified; F32.9 Major depressive disorder, single episode, unspecified; Z79.899 Other long term (current) drug therapy; Z90.49 Acquired absence of other specified parts of digestive tract; Z87.891 Personal history of nicotine dependence; Z86.718 Personal history of other venous thrombosis and embolism; Z86.711 Personal history of pulmonary embolism
CPT/HCPCS: 81001; 99283

== ENCOUNTER → 2020-12-17 | Outpatient (CLI) | payer BC ==
--- NOTE | 2020-12-21 08:19 | MM ---
Reason for exam: screening (asymptomatic). Last mammogram was performed 2 years and 11 months ago. History: Patient is postmenopausal. Took hormonal contraceptives for 3 months beginning at age 17. Physical Findings: A clinical breast exam by your physician is recommended on an annual basis and results should be correlated with mammographic findings. MG Screening Mammo w CAD Bilateral CC and MLO view(s) were taken. Prior study comparison: January 10, 2018, bilateral MG 3d screening mammo w/cad. November 24, 2016, bilateral MG screening mammo w CAD. October 23, 2014, bilateral MG screening mammo w CAD. The breast tissue is almost entirely fat. There is chronic nodularity in the right breast. No significant changes when compared with prior studies. ASSESSMENT: Negative, BI-RAD 1 RECOMMENDATION: Routine screening mammogram of both breasts in 1 year.
== END | disposition home or self-care (01) ==
LOC: RADMAMWWP 11:08
PROVIDERS: ATTEND Family Medicine
DX: Z12.31 Encounter for screening mammogram for malignant neoplasm of breast (principal); Z78.0 Asymptomatic menopausal state
CPT/HCPCS: 77067

== ENCOUNTER 2021-03-04 07:54 | Day surgery (SDC) | payer BC ==
[2021-03-02 09:25] VITALS: BMI 44.7
[~2021-03-04 07:54] MED LIST changes: -BUPIVACAINE-EPI 0.5%-1:200,000 10 ML VIAL SQ ONE; -DEXAMETHASONE SOD PHOSPHATE 10 MG/ML 1 ML VIAL IV ONE; -HYDROmorphone 0.5 MG/0.5 ML SYRINGE IVP PRN; -LACTATED RINGERS 1,000 ML IV ONE; +LIDOCAINE 1% (10MG/ML) FOR IV START INTRADERMA PRN; -LIDOCAINE 1% 20 ML VIAL (10MG/ML) FOR IV START SQ ONE; -LIDOCAINE 1% INJ 10MG/ML (20 ML MDV) ONE; -LIDOCAINE 2% INJ 20 MG/ML SQ ONE; -MIDAZOLAM (PF) 2 MG/2 ML VIAL IV PRN; -MIDAZOLAM 2 MG/2 ML VIAL ONE; -ONDANSETRON 4 MG/2 ML VIAL IVP ONE; -PROPOFOL 10 MG/ML 20 ML VIAL IV ONE; -Pre Op ABX Message 1 EACH MISC MISCELLANE ONE; -SCOPOLAMINE 1.5MG/72HR PATCH TRANSDERM ONE; -SUCCINYLCHOLINE CHLORIDE 100 MG/5 ML SYR IV ONE; -fentaNYL (PF) 50 MCG/ML 2 ML AMP ONE
[2021-03-04 08:16] VITALS: TEMP 96.8
[2021-03-04 08:29] LABS: Glucose,Whole Blood 112 mg/dL (75-99)
[2021-03-04] MEDS ORDERED: PROPOFOL 10 MG/ML 20 ML VIAL IV ONE (09:18)
[2021-03-04] MEDS ORDERED: LIDOCAINE 1% INJ 10MG/ML (20 ML MDV) ONE (09:18)
[2021-03-04] MEDS ORDERED: KETAMINE 10 MG/ML 20 ML VIAL ONE (09:18)
[2021-03-04] MEDS ORDERED: MIDAZOLAM 2 MG/2 ML VIAL ONE (09:18)
--- NOTE | 2021-03-04 09:48 | P.PCN ---
Date of Procedure: 03/04/21 Procedure(s) Performed: Brief history: Patient is a pleasant 56-year-old pleasant white female scheduled for an upper endoscopy as well as colonoscopy as a part of evaluation of esophageal achalasia and change in bowel habits. The patient underwent Heller's myotomy approximately 30 years ago. Lately has been having dysphagia and passive regurgitation. Last EGD was done in February 2017 that showed dilated esophagus with retained solid food in small hiatal hernia. Esophageal manometry May 01 showed normal INR. And aperistalsis of the esophagus. She was seen by Dr. Harris at [facility] and recommended esophagectomy but the patient does not want to have a surgery done and would rather have a repeat upper endoscopies. scheduled for an elective upper endoscopy as well as colonoscopy as a part of evaluation of[default value] Procedure performed: Esophagogastroduodenoscopy with biopsy Colonoscopy Preoperative diagnosis: History of esophageal achalasia status post Heller's myotomy myotomy 30 years ago and of intermittent dysphagia HEENT bowel habits Anesthesia: MAC Procedure: After informed consent was obtained from the patient was brought into the endoscopy unit and IV sedation was administered by anesthesia under continuous monitoring. Initially upper endoscopy was done. The Olympus GF 160 video endoscope was inserted inserted into the mouth and esophagus intubated without any difficulty and was gradually advanced into the stomach and duodenum and carefully examined. The bulb and second part of the duodenum appeared normal. The scope was then withdrawn into the stomach adequately insufflated with air and upon careful examination the antrum and body, cardia and fundus appeared normal. The scope was then withdrawn into the esophagus. The GE junction was located at 40 cm to the incisors. The lower esophageal sphincter appeared slightly tight but no obvious stricture identified. Was able to advance the scope through the LES very easily. Esophagus was [place] be dilated with retained liquid food that was readily aspirated. There was some esophagitis noted in the distal esophagus and biopsies were done from this area. Patient tolerated the procedure well. At this time the patient continued to remain sedation. Initial digital rectal e xamination was normal. Olympus CF 160 video colonoscope was then inserted into the rectum and gradually advanced to the cecum without any difficulty. Careful examination was performed as the scope was gradually being withdrawn. The prep was excellent. The cecum, ascending colon, transverse colon, descending colon, sigmoid colon and rectum appeared normal. Diffuse diverticulosis seen. Retrofl exion was performed in the rectum and no lesions were noted. Patient tolerated the procedure well. Impression: 1. Upper endoscopy revealed significant dilated esophagus with retained liquid food and somewhat tight lower esophageal sphincter 2. Colonoscopy revealed scattered diffuse diverticulosis but no evidence of colorectal neoplasia Recommendations: Findings of this examination were discussed with the patient as well as her family. She was advised to continue with small frequent meals. Repeat colonoscopy in 10 years. Follow with the biopsy results.
[2021-03-04 10:44] VITALS: BP 124/67; PULSE 77; RESP 18
== END 2021-03-04 10:30 | disposition home or self-care (01) ==
LOC: ORWHC2ENDO 07:54
PROVIDERS: ATTEND Internal Medicine Gastroenterology
DX: K20.0 Eosinophilic esophagitis (principal); K44.9 Diaphragmatic hernia without obstruction or gangrene; R19.4 Change in bowel habit; R13.10 Dysphagia, unspecified; K57.30 Diverticulosis of large intestine without perforation or abscess without bleeding; I10 Essential (primary) hypertension; E78.5 Hyperlipidemia, unspecified; Z86.718 Personal history of other venous thrombosis and embolism; Z86.711 Personal history of pulmonary embolism; R60.0 Localized edema; J98.4 Other disorders of lung; F41.9 Anxiety disorder, unspecified; Z79.01 Long term (current) use of anticoagulants; Z79.51 Long term (current) use of inhaled steroids; Z79.899 Other long term (current) drug therapy; Z97.2 Presence of dental prosthetic device (complete) (partial)
CPT/HCPCS: 88305; 45378; 43239; J2250; J2001; J2704

== ENCOUNTER 2021-05-06 14:11 | Emergency (ER) | payer BC ==
[2021-05-06] MEDS ORDERED: BENZONATATE 100 MG CAP PO STA (16:36)
[2021-05-06] MEDS ORDERED: ACETAMINOPHEN TAB 325 MG TAB PO STA (16:36)
[2021-05-06] MEDS ORDERED: ACET/COD 300 MG/30 MG STARTER PACK 6 TAB BTL PO STA (16:44)
--- NOTE | 2021-05-06 16:44 | ED ---
General Adult HPI - General Chief complaint: Shortness of Breath Stated complaint: COUGH,FEVER Time Seen by Provider: 05/06/21 16:30 Source: patient, RN notes reviewed, old records reviewed Mode of arrival: ambulatory Limitations: no limitations - History of Present Illness Initial comments: Well-appearing pleasant 56-year-old female, alert and oriented 4, presents to the emergency room with persistent cough for the past 2 weeks. Patient states that she developed a fever yesterday. She did see her primary care doctor on a telehealth visit and was given a prescription for Zithromax and steroids. She was told to come to the emergency room for a Covid test. She states that she has albuterol at home that she uses for restrictive airway disease. She does have a history of DVT, hypertension, scleroderma and PE. She has been vaccinated for coronavirus. -: week(s) (2) Location: chest Severity scale (1-10): 0 Consistency: constant Improves with: other (albuterol) Worsens with: none Associated Symptoms: cough, fever/chills, nausea/vomiting, shortness of breath Treatments Prior to Arrival: other (albuterol) - Related Data Home Medications Medication Instructions Recorded Confirmed Omeprazole 20 mg PO BID 03/06/17 05/06/21 Atorvastatin [Lipitor] 10 mg PO HS 10/04/17 05/06/21 Multivitamins, Thera [Multivitamin 1 tab PO DAILY 10/04/17 05/06/21 (formulary)] Ipratropium-Albuterol Nebulize 3 ml INHALATION RT-QID PRN 11/15/17 05/06/21 [Duoneb 0.5 mg-3 mg/3 ml Soln] Magnesium Oxide [Mag-Ox] 400 mg PO DAILY 11/29/17 05/06/21 Ascorbic Acid [Vitamin C] 500 mg PO DAILY 06/05/18 05/06/21 DULoxetine HCL [Cymbalta] 60 mg PO DAILY 03/02/21 05/06/21 Albuterol Inhaler [Ventolin Hfa 2 puff INHALATION RT-Q6H PRN 05/06/21 05/06/21 Inhaler] Cholecalciferol [Vitamin D3 (25 25 mcg PO DAILY 05/06/21 05/06/21 Mcg = 1000 Iu)] Losartan/Hydrochlorothiazide 1 tab PO DAILY 05/06/21 05/06/21 [Losartan-Hctz 100-25 mg Tab] Zinc 50 mg PO DAILY 05/06/21 05/06/21 Previous Rx's Medication Instructions Recorded Apixaban [Eliquis] 5 mg PO BID #60 tab 11/17/17 Benzonatate [Tessalon Perles] 100 mg PO TID PRN #15 capsule 05/06/21 Allergies Allergy/AdvReac Type Severity Reaction Status Date / Time No Known Allergies Allergy Verified 05/06/21 17:23 Review of Systems ROS Statement: Those systems with pertinent positive or pertinent negative responses have been documented in the HPI. ROS Other: All systems not noted in ROS Statement are negative. Past Medical History Past Medical History: Deep Vein Thrombosis (DVT), GERD/Reflux, Hyperlipidemia, Hypertension, Osteoarthritis (OA), Pulmonary Embolus (PE) Additional Past Medical History / Comment(s): DVT years ago after taking control, achalasia, restrictive lung disease. Hx Pneumonia September 2017. October 2017 DVT and PE with poor liver and kidney function at that time. Bilateral leg swelling at times, wears compression stockings to work. History of Any Multi-Drug Resistant Organisms: None Reported Past Surgical History: Cholecystectomy, Heart Catheterization, Orthopedic Surgery Additional Past Surgical History / Comment(s): [facility],STATES ESOPHAGUS WAS TOO TIGHT AND THEY REMOVED HER RIB AND DID HILAR PROCEDURE, eye surgery as a baby. COLONOSCOPY/EGD Past Anesthesia/Blood Transfusion Reactions: No Reported Reaction Past Psychological History: Anxiety, Depression Smoking Status: Former smoker Past Alcohol Use History: Occasional Past Drug Use History: None Reported - Past Family History Father Family Medical History: Cancer Additional Family Medical History / Comment(s): PROSTATE CANCER Sister(s) Family Medical History: Cancer Additional Family Medical History / Comment(s): Skin cancer. General Exam Limitations: no limitations General appearance: alert, in no apparent distress Eye exam: Present: normal appearance, EOMI. Absent: scleral icterus, conjunctival injection, periorbital swelling, periorbital tenderness ENT exam: Present: normal exam, normal oropharynx, mucous membranes moist Neck exam: Present: normal inspection, full ROM. Absent: tenderness, meningismus, lymphadenopathy, thyromegaly Respiratory exam: Present: normal lung sounds bilaterally. Absent: respiratory distress, wheezes, rales, rhonchi, stridor, chest wall tenderness, accessory muscle use Cardiovascular Exam: Present: tachycardia. Absent: JVD Extremities exam: Present: full ROM. Absent: pedal edema Neurological exam: Present: alert, oriented X3 Psychiatric exam: Present: normal affect, normal mood Skin exam: Present: warm, dry, intact, normal color. Absent: rash, cyanosis, diaphoretic Course Vital Signs 05/06/21 05/06/21 05/06/21 15:20 17:06 17:39 Temperature 100.2 F H 99 F Pulse Rate 117 H 95 Respiratory 28 H 18 18 Rate Blood Pressure 150/83 153/86 O2 Sat by Pulse 99 97 Oximetry 05/06/21 17:50 Temperature 99 F Pulse Rate 95 Respiratory 18 Rate Blood Pressure 153/86 O2 Sat by Pulse 97 Oximetry Medical Decision Making - Medical Decision Making 56-year-old female presents with persistent cough for the past 2 weeks and a fever since yesterday. Her primary care doctor prescribed her Zithromax and steroids and told her to come to the emergency room for a Covid test. She does have a history of DVT, hypertension, scleroderma, restrictive airway disease and PE. She has been vaccinated for coronavirus. She is Covid positive. Her x-ray shows some pleural reaction at the left lung base, slightly more than last exam October 2017. Normal heart, no heart failure noted. She denies any chest pain, calf pain or swelling. Vital signs are stable, oxygen saturation is 99% on room air. She was given Tylenol and Tessalon Perles in the emergency room. Her lungs are clear to auscultation and she states she did an albuterol treatment prior to coming to the emergency room. Patient was directed to continue the Zithromax and steroids prescribed by her primary care doctor, use the albuterol as previously prescribed for cough and difficulty breathing, Tessalon Perles for cough and Tylenol #3 at bedtime to help her sleep. She was instructed to return to the emergency room for new or worsening symptoms. - Lab Data Lab Results 05/06/21 Range/Units 15:27 Coronavirus (PCR) Detected A (Not Detectd) Disposition Clinical Impression: COVID-19 Disposition: HOME SELF-CARE Condition: Good Instructions (If sedation given, give patient instructions): Coronavirus Disease 2019 (COVID-19) Additional Instructions: Take medications as prescribed by your primary care doctor. You can also take Tylenol 3 as provided to help sleep at night. Tessalon Perles as prescribed for cough. Continue your albuterol. Return to the emergency room with any new or worsening symptoms including chest pain or worsening shortness of breath. Prescriptions: Benzonatate [Tessalon Perles] 100 mg PO TID PRN #15 capsule PRN Reason: Cough Is patient prescribed a controlled substance at d/c from ED?: No Referrals: Juanito Abreu DO [Primary Care Provider] - 1-2 days Time of Disposition: 17:36
[2021-05-06 17:07] VITALS: RESP 18
--- NOTE | 2021-05-06 17:34 | XR ---
EXAMINATION TYPE: XR chest 2V DATE OF EXAM: 05/06/2021 COMPARISON: 11/15/2017 HISTORY: Cough and congestion TECHNIQUE: 2 views FINDINGS: There is normal sized heart. There is some pleural reaction left lung base. Right lung is c lear. No heart failure. There is old left-sided posterior healed rib fracture. IMPRESSION: There is some pleural reaction at the left lung base which is the same or slightly more t benitez last exam. Normal heart. No heart failure
[2021-05-06 17:41] VITALS: BP 153/86; PULSE 95; TEMP 99
== END 2021-05-06 17:51 | disposition home or self-care (01) ==
LOC: EC 14:11
DX: U07.1 COVID-19 (principal); K21.9 Gastro-esophageal reflux disease without esophagitis; E78.5 Hyperlipidemia, unspecified; I10 Essential (primary) hypertension; M19.90 Unspecified osteoarthritis, unspecified site; F41.9 Anxiety disorder, unspecified; F32.A Depression, unspecified; Z79.01 Long term (current) use of anticoagulants; Z86.718 Personal history of other venous thrombosis and embolism; Z86.711 Personal history of pulmonary embolism; Z90.49 Acquired absence of other specified parts of digestive tract; Z87.891 Personal history of nicotine dependence
CPT/HCPCS: 71046; 87635; 99285

== ENCOUNTER → 2022-08-03 | Outpatient (CLI) | payer BC ==
--- NOTE | 2022-08-04 07:58 | MM ---
Reason for Exam: Screening (asymptomatic). Last mammogram was performed 1 year(s) and 8 month(s) ago. Patient History: Menarche at age 12. First Full-Term at age 19. Postmenopausal. Hormonal Contraceptives for 3 months starting at age 17. Risk Values: Suha 5 year model risk: 1.2%. NCI Lifetime model risk: 6.9%. Prior Study Comparison: 11/24/2016 Bilateral Screening Mammogram, [facility]. 01/10/2018 Bilateral Screening Mammogram, [facility]. 12/17/2020 Bilateral Screening Mammogram, [facility]. Tissue Density: The breast tissue is almost entirely fat. Findings: Analyzed By CAD. There is no suspicious group of microcalcifications or new suspicious mass in either breast. Chronic nodularity within the right breast. Benign-appearing round calcifications within both breasts. Overall Assessment: Benign, BI-RAD 2 Management: Screening Mammogram of both breasts in 1 year. A clinical breast exam by your physician is recommended on an annual basis and results should be correlated with mammographic findings. Electronically signed and approved by: Freddy Arellano D.O.
== END | disposition home or self-care (01) ==
LOC: RADMAMWWP 08:04
PROVIDERS: ATTEND Family Medicine
DX: Z12.31 Encounter for screening mammogram for malignant neoplasm of breast (principal); Z78.0 Asymptomatic menopausal state
CPT/HCPCS: 77063; 77067

== ENCOUNTER 2023-05-17 23:24 | Emergency (ER) | payer OTHER, BC ==
--- NOTE | 2023-05-18 00:53 | ED ---
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 Patient states she was in her driveway on the way to work when she slipped and fell on the ice causing her to fall forwards. Patient was able to catch herself with her hands and knees however notes that she did hit her head. There is no LOC at this time. Now notes some headache and bruising to her face and right knee pain. No other injuries. No other complaints. There is no chest pain or shortness of breath prior to the fall. - Related Data Home Medications Medication Instructions Recorded Confirmed Omeprazole 20 mg PO BID 03/06/17 05/06/21 Atorvastatin [Lipitor] 10 mg PO HS 10/04/17 05/06/21 Multivitamins, Thera [Multivitamin 1 tab PO DAILY 10/04/17 05/06/21 (formulary)] Ipratropium-Albuterol Nebulize 3 ml INHALATION RT-QID PRN 11/15/17 05/06/21 [Duoneb 0.5 mg-3 mg/3 ml Soln] Magnesium Oxide [Mag-Ox] 400 mg PO DAILY 11/29/17 05/06/21 Ascorbic Acid [Vitamin C] 500 mg PO DAILY 06/05/18 05/06/21 DULoxetine HCL [Cymbalta] 60 mg PO DAILY 03/02/21 05/06/21 Albuterol Inhaler [Ventolin Hfa 2 puff INHALATION RT-Q6H PRN 05/06/21 05/06/21 Inhaler] Cholecalciferol [Vitamin D3 (25 25 mcg PO DAILY 05/06/21 05/06/21 Mcg = 1000 Iu)] Losartan/Hydrochlorothiazide 1 tab PO DAILY 05/06/21 05/06/21 [Losartan-Hctz 100-25 mg Tab] Zinc 50 mg PO DAILY 05/06/21 05/06/21 Previous Rx's Medication Instructions Recorded Apixaban [Eliquis] 5 mg PO BID #60 tab 11/17/17 Benzonatate [Tessalon Perles] 100 mg PO TID PRN #15 capsule 05/06/21 Allergies Allergy/AdvReac Type Severity Reaction Status Date / Time No Known Allergies Allergy Verified 05/17/23 23:34 Review of Systems ROS Statement: Those systems with pertinent positive or pertinent negative responses have been documented in the HPI. ROS Other: All systems not noted in ROS Statement are negative. Past Medical History Past Medical History: Deep Vein Thrombosis (DVT), GERD/Reflux, Hyperlipidemia, Hypertension, Osteoarthritis (OA), Pulmonary Embolus (PE) Additional Past Medical History / Comment(s): DVT years ago after taking control, achalasia, restrictive lung disease. Hx Pneumonia September 2017. October 2017 DVT and PE with poor liver and kidney function at that time. Bilateral leg swelling at times, wears compression stockings to work. History of Any Multi-Drug Resistant Organisms: None Reported Past Surgical History: Cholecystectomy, Heart Catheterization, Orthopedic Surgery Additional Past Surgical History / Comment(s): BILAT [facility],STATES ESOPHAGUS WAS TOO TIGHT AND THEY REMOVED HER RIB AND DID HILAR PROCEDURE, eye surgery as a baby. COLONOSCOPY/EGD Past Anesthesia/Blood Transfusion Reactions: No Reported Reaction Past Psychological History: Anxiety, Depression Smoking Status: Former smoker Past Alcohol Use History: Occasional Past Drug Use History: None Reported - Past Family History Father Family Medical History: Cancer Additional Family Medical History / Comment(s): PROSTATE CANCER Sister(s) Family Medical History: Cancer Additional Family Medical History / Comment(s): Skin cancer. General Exam Limitations: no limitations General appearance: alert, in no apparent distress Head exam: Present: other (bruising to the face. No sinha signs or raccoons eyes.) Eye exam: Present: normal appearance Neck exam: Present: normal inspection Respiratory exam: Present: normal lung sounds bilaterally GI/Abdominal exam: Present: soft Neurological exam: Present: alert, oriented X3 Skin exam: Present: warm, dry Course Vital Signs 05/17/23 05/18/23 23:30 01:09 Pulse Rate 98 83 Respiratory 20 18 Rate Blood Pressure 142/68 139/74 O2 Sat by Pulse 96 96 Oximetry Medical Decision Making - Medical Decision Making Was pt. sent in by a medical professional or institution (, PA, BIOINFORMATICS SPECIALIST, urgent care, hospital, or mcc...) When possible be specific @ -No Did you speak to anyone other than the patient for history (EMS, parent, family, police, friend...)? What history was obtained from this source @ -No Did you review nursing and triage notes (agree or disagree)? Why? @ -I reviewed and agree with nursing and triage notes Were old charts reviewed (outside hosp., previous admission, EMS record, old EKG, old radiological studies, urgent care reports/EKG's, mcc records)? Report findings @ -No old charts were reviewed Differential Diagnosis (chest pain, altered mental status, abdominal pain women, abdominal pain men, vaginal bleeding, weakness, fever, dyspnea, syncope, headache, dizziness, GI bleed, back pain, seizure, CVA, palpatations, mental health, musculoskeletal)? @ -Differential Musculoskeletal Muscular strain, contusion, ligament sprain, fracture, arthritis, septic arthritis, bursitis, cellulitis, muscle spasm, nerve compression, DVT, arterial occlusion, herpes zoster, electrolyte abnormality, tumor.... This is not meant to be in all inclusive list EKG interpreted by me (3pts min.). @ -None X-rays interpreted by me (1pt min.). @ -X-ray of the right knee and lumbar spine interpreted by me showing no evidence of acute process. CT interpreted by me (1pt min.). @ -CT brain and C-spine interpreted by me showing no evidence of acute finding. U/S interpreted by me (1pt. min.). @ -None done What testing was considered but not performed or refused? (CT, X-rays, U/S, labs)? Why? @ -None What meds were considered but not given or refused? Why? @ -None Did you discuss the management of the patient with other professionals (professionals i.e. , PA, BIOINFORMATICS SPECIALIST, lab, RT, psych nurse, case management social worker, senior net developer architect, teacher, deputy juvenile officer, family caseworker)? Give summary @ -No Was smoking cessation discussed for >3mins.? @ -No Was critical care preformed (if so, how long)? @ -No Were there social determinants of health that impacted care today? How? (Homelessness, low income, unemployed, alcoholism, drug addiction, transportation, low edu. Level, literacy, decrease access to med. care, senior living, rehab)? @ -No Was there de-escalation of care discussed even if they declined (Discuss DNR or withdrawal of care, Hospice)? DNR status @ -No What co-morbidities impacted this encounter? (DM, HTN, Smoking, COPD, CAD, Cancer, CVA, ARF, Chemo, Hep., AIDS, mental health diagnosis, sleep apnea, morbid obesity)? @ -None Was patient admitted / discharged? Hospital course, mention meds given and route, prescriptions, significant lab abnormalities, going to OR and other pertinent info. @ -Discharge 58-year-old female presented to the ED status post mechanical fall after slipping on ice. Patient now noted some pain of her right knee her lower back with head injury. Patient is on Eliquis. Imaging studies revealed no evidence of fracture, acute bleed, or other acute finding. Patient discharged home in stable condition. Discussed return precautions patient family who verbalizes agreement. Undiagnosed new problem with uncertain prognosis? @ -No Drug Therapy requiring intensive monitoring for toxicity (Heparin, Nitro, Insulin, Cardizem)? @ -No Were any procedures done? @ -No Diagnosis/symptom? @ -Status post mechanical fall, knee pain, head injury, back pain Acute, or Chronic, or Acute on Chronic? @ -Acute Uncomplicated (without systemic symptoms) or Complicated (systemic symptoms)? @ -Uncomplicated Side effects of treatment? @ -No Exacerbation, Progression, or Severe Exacerbation? @ -No Poses a threat to life or bodily function? How? (Chest pain, [place], [place], pneumonia, PE, COPD, DKA, ARF, appy, cholecystitis, CVA, Diverticulitis, Homicidal, Suicidal, threat to staff... and all critical care pts) @ -No - Lab Data Lab Results 05/17/23 Range/Units 23:56 Urine Opiates Screen Not Detected (NotDetected) Ur Oxycodone Screen Not Detected (NotDetected) Urine Methadone Screen Not Detected (NotDetected) Ur Barbiturates Screen Not Detected (NotDetected) U Tricyclic Antidepress Not Detected (NotDetected) Ur Phencyclidine Scrn Not Detected (NotDetected) Ur Amphetamines Screen Not Detected (NotDetected) U Methamphetamines Scrn Not Detected (NotDetected) U Benzodiazepines Scrn Not Detected (NotDetected) Urine Cocaine Screen Not Detected (NotDetected) U Marijuana (THC) Screen Not Detected (NotDetected) Disposition Clinical Impression: Head injury, Fall from slipping on ice, Knee pain Disposition: HOME SELF-CARE Condition: Good Additional Instructions: Please return to the Emergency Department if symptoms worsen or any other concerns. Please follow up with your PCP. Is patient prescribed a controlled substance at d/c from ED?: No Referrals: Juanito Abreu DO [Primary Care Provider] - 1-2 days Time of Disposition: 04:01
[2023-05-18 01:23] VITALS: RESP 18
[2023-05-18 01:40] LABS: Cocaine Screen,Urine Not Detected (NotDetected); Phencyclidine Screen,Urine Not Detected (NotDetected); Urn Cannabinoid Scrn Not Detected (NotDetected)
[2023-05-18 01:41] LABS: Amphetamine Screen,Urine Not Detected (NotDetected); Barbiturate Screen,Urine Not Detected (NotDetected); Benzodiazepines Screen,Urine Not Detected (NotDetected); Methadone Screen, Urine Not Detected (NotDetected); Opiate Screen,Urine Not Detected (NotDetected); Oxycodone Screen, Urine Not Detected (NotDetected); Tricyclic Antidepressant,Urine Not Detected (NotDetected)
--- NOTE | 2023-05-18 01:50 | CT ---
EXAM: CT Head Without Intravenous Contrast CLINICAL HISTORY: ITS.REASON CT Reason: fall on thinners TECHNIQUE: Axial computed tomography images of the head/brain without intravenous contrast. CTDI is 45.2 mGy and DLP is 908.4 mGy-cm. This CT exam was performed using one or more of the following dose reduction techniques: automated exposure control, adjustment of the mA and/or kV according to patient size, and/or use of iterative reconstruction technique. COMPARISON: No relevant prior studies available. FINDINGS: Brain: No hemorrhage or mass effect. Ventricles: No hydrocephalus. Bones/joints: Unremarkable. Soft tissues: Unremarkable. Sinuses: No air fluid level. Mastoid air cells: Clear. IMPRESSION: No acute hemorrhage, hydrocephalus, or mass effect. EXAM: CT Cervical Spine Without Intravenous Contrast CLINICAL HISTORY: ITS.REASON CT Reason: fall on thinners TECHNIQUE: Axial computed tomography images of the cervical spine without intravenous contrast. CTDI is 30.8 mGy and DLP is 738.8 mGy-cm. This CT exam was performed using one or more of the following dose reduction techniques: automated exposure control, adjustment of the mA and/or kV according to patient size, and/or use of iterative reconstruction technique. COMPARISON: No relevant prior studies available. FINDINGS: Vertebrae: No acute fracture. Discs/spinal canal/neural foramina: degenerative changes. Soft tissues: No prevertebral swelling. Severely patulous esophagus filled with recently ingested material IMPRESSION: No acute fracture or subluxation. Severely patulous esophagus filled with recently ingested material
--- NOTE | 2023-05-18 03:38 | XR ---
EXAM: XR Right Knee, 3 Views CLINICAL HISTORY: ITS.REASON XR Reason: s/p fall pain TECHNIQUE: Three views of the right knee. COMPARISON: No relevant prior studies available. FINDINGS: Bones/joints: No acute fracture. No dislocation. Severe osteoarthrosis of the medial joint space. Mild osteoarthrosis of the patellofemoral compartment. Soft tissues: Unremarkable. IMPRESSION: No acute osseous abnormalities. Osteoarthrosis.
--- NOTE | 2023-05-18 03:40 | XR ---
EXAM: XR Lumbosacral Spine, 2 or 3 Views CLINICAL HISTORY: ITS.REASON XR Reason: s/p fall pain TECHNIQUE: Frontal and lateral views of the lumbar spine and sacrum. COMPARISON: No relevant prior studies available. FINDINGS: Vertebrae: No acute fracture. Minimal retrolisthesis L2 on L3, L5 on S1. Disc spaces: Degenerative changes. Soft tissues: Unremarkable. Ectatic aorta measuring 2.5 cm. IMPRESSION: No acute findings.
[2023-05-18 05:14] VITALS: BP 150/90; PULSE 75; TEMP 98.1
== END 2023-05-18 04:10 | disposition home or self-care (01) ==
LOC: EC 23:24
DX: S00.83XA Contusion of other part of head, initial encounter (principal); M25.561 Pain in right knee; M54.50 Low back pain, unspecified; I10 Essential (primary) hypertension; E78.5 Hyperlipidemia, unspecified; K21.9 Gastro-esophageal reflux disease without esophagitis; F32.A Depression, unspecified; F41.9 Anxiety disorder, unspecified; Z79.899 Other long term (current) drug therapy; Z86.711 Personal history of pulmonary embolism; Z86.718 Personal history of other venous thrombosis and embolism; Z87.891 Personal history of nicotine dependence; W00.0XXA Fall on same level due to ice and snow, initial encounter
CPT/HCPCS: 70450; 72100; 72125; 80306; 99284

== ENCOUNTER 2024-09-01 20:46 | Inpatient (IN) | payer BC, OTHER ==
--- NOTE | 2024-09-01 21:22 | ED ---
General Adult HPI - General Chief complaint: Arrhythmia/Palpitations Stated complaint: SOB, weakness Time Seen by Provider: 09/01/24 21:01 Source: patient Mode of arrival: ambulatory Limitations: no limitations - History of Present Illness Initial comments: Mercedes is a 59-year-old female presents ER today for evaluation of not feeling well. Patient states she has not been feeling well for couple weeks but really has not been feeling well for the past couple of days has been feeling really lightheaded. Patient reports she had attributed not feeling well to changes in recent medications including medications for her kidneys and depression medications. Patient states that for the past couple days she has been feeling really lightheaded feel like her heart is racing and just like she cannot catch her breath. No chest pain. Patient has no significant cardiac history she states she underwent a cardiac cath for surgical clearance in the past and it was good. She has not followed with cardiology since that time. Patient is on Eliquis due to history of PE. - Related Data Home Medications Medication Instructions Recorded Confirmed Omeprazole 20 mg PO BID 03/06/17 05/06/21 Atorvastatin [Lipitor] 10 mg PO HS 10/04/17 05/06/21 Multivitamins, Thera [Multivitamin 1 tab PO DAILY 10/04/17 05/06/21 (formulary)] Ipratropium-Albuterol Nebulize 3 ml INHALATION RT-QID PRN 11/15/17 05/06/21 [Duoneb 0.5 mg-3 mg/3 ml Soln] Magnesium Oxide [Mag-Ox] 400 mg PO DAILY 11/29/17 05/06/21 Ascorbic Acid [Vitamin C] 500 mg PO DAILY 06/05/18 05/06/21 DULoxetine HCL [Cymbalta] 60 mg PO DAILY 03/02/21 05/06/21 Albuterol Inhaler [Ventolin Hfa 2 puff INHALATION RT-Q6H PRN 05/06/21 05/06/21 Inhaler] Cholecalciferol [Vitamin D3 (25 25 mcg PO DAILY 05/06/21 05/06/21 Mcg = 1000 Iu)] Losartan/Hydrochlorothiazide 1 tab PO DAILY 05/06/21 05/06/21 [Losartan-Hctz 100-25 mg Tab] Zinc 50 mg PO DAILY 05/06/21 05/06/21 Previous Rx's Medication Instructions Recorded Apixaban [Eliquis] 5 mg PO BID #60 tab 11/17/17 Benzonatate [Tessalon Perles] 100 mg PO TID PRN #15 capsule 05/06/21 Allergies Allergy/AdvReac Type Severity Reaction Status Date / Time No Known Allergies Allergy Verified 05/17/23 23:34 Review of Systems ROS Statement: Those systems with pertinent positive or pertinent negative responses have been documented in the HPI. ROS Other: All systems not noted in ROS Statement are negative. Past Medical History Past Medical History: Deep Vein Thrombosis (DVT), GERD/Reflux, Hyperlipidemia, Hypertension, Osteoarthritis (OA), Pulmonary Embolus (PE) Additional Past Medical History / Comment(s): DVT years ago after taking control, achalasia, restrictive lung disease. Hx Pneumonia September 2017. October 2017 DVT and PE with poor liver and kidney function at that time. Bilateral leg swelling at times, wears compression stockings to work. History of Any Multi-Drug Resistant Organisms: None Reported Past Surgical History: Cholecystectomy, Heart Catheterization, Orthopedic Surgery Additional Past Surgical History / Comment(s): BILAT [facility],STATES ESOPHAGUS WAS TOO TIGHT AND THEY REMOVED HER RIB AND DID HILAR PROCEDURE, eye surgery as a baby. COLONOSCOPY/EGD Past Anesthesia/Blood Transfusion Reactions: No Reported Reaction Past Psychological History: Anxiety, Depression Smoking Status: Former smoker Past Alcohol Use History: Occasional Past Drug Use History: None Reported - Past Family History Father Family Medical History: Cancer Additional Family Medical History / Comment(s): PROSTATE CANCER Sister(s) Family Medical History: Cancer Additional Family Medical History / Comment(s): Skin cancer. General Exam - General Exam Comments Initial Comments: Physical Exam GENERAL: Patient is well-developed and well-nourished. Patient is nontoxic and well- hydrated and is in no distress. HENT: Normocephalic, Atraumatic. EYES: PERRL, EOMI PULMONARY: Unlabored respirations. No audible rales rhonchi or wheezing was noted. CARDIOVASCULAR: Tachycardic, regular ABDOMEN: Soft and nontender with normal bowel sounds. SKIN: Skin is clear with no lesions or rashes and otherwise unremarkable. : Deferred NEUROLOGIC: Patient is alert and oriented x3. Moving all extremities spontaneously MUSCULOSKELETAL: Normal extremities with adequate strength and full range of motion. No lower extremity swelling or edema. No calf tenderness. PSYCHIATRIC: Normal psychiatric evaluation. Limitations: no limitations Course Vital Signs 09/01/24 09/01/24 09/01/24 20:55 21:34 22:02 Temperature 97.3 F L Pulse Rate 163 H 165 H 165 H Respiratory 20 24 22 Rate Blood Pressure 61/43 124/84 111/81 O2 Sat by Pulse 98 95 98 Oximetry 09/01/24 09/02/24 23:02 00:02 Temperature Pulse Rate 168 H 158 H Respiratory 20 20 Rate Blood Pressure 135/89 102/69 O2 Sat by Pulse 96 94 L Oximetry EKG Findings - EKG Comments: EKG Findings:: EKG interpreted by me, EKG obtained due to tachycardia EKG obtained at 2103, rate is 164 rhythm is narrow complex regular no discernible P waves concerning for a flutter with 2-1 block. Medical Decision Making - Medical Decision Making Was pt. sent in by a medical professional or institution (, PA, STORE CASHIER, urgent care, hospital, or alf...) When possible be specific @ -No Did you speak to anyone other than the patient for history (EMS, parent, family, police, friend...)? What history was obtained from this source @ -No Did you review nursing and triage notes (agree or disagree)? Why? @ -I reviewed and agree with nursing and triage notes Were old charts reviewed (outside hosp., previous admission, EMS record, old EKG, old radiological studies, urgent care reports/EKG's, alf records)? Report findings @ -No old charts were reviewed Differential Diagnosis (chest pain, altered mental status, abdominal pain women, abdominal pain men, vaginal bleeding, weakness, fever, dyspnea, syncope, headache, dizziness, GI bleed, back pain, seizure, CVA, palpatations, mental health)? @Differential Palpitations Ventricular arrhythmias, atrial arrhythmias, myocardial infarction, anemia, thyrotoxicosis, electrolyte imbalance, hypokalemia, pulmonary embolism, pulmonary disease, drugs, alcohol, anxiety, stress.... This is not meant to be an all-inclusive list. EKG interpreted by me (3pts min.). @ -As above X-rays interpreted by me (1pt min.). @ -None done CT interpreted by me (1pt min.). @ -None done U/S interpreted by me (1pt. min.). @ -None done What testing was considered but not performed or refused? (CT, X-rays, U/S, labs)? Why? @ -None What meds were considered but not given or refused? Why? @ -None Did you discuss the management of the patient with other professionals (professionals i.e. , PA, STORE CASHIER, lab, RT, psych nurse, social organization professor, safety instruction police officer, teacher, safety instruction police officer, case maker)? Give summary @ -No Was smoking cessation discussed for >3mins.? @ -No Was critical care preformed (if so, how long)? @ -Yes, 45 minutes Were there social determinants of health that impacted care today? How? (Homelessness, low income, unemployed, alcoholism, drug addiction, transportation, low edu. Level, literacy, decrease access to med. care, mcc, rehab)? @ -No Was there de-escalation of care discussed even if they declined (Discuss DNR or withdrawal of care, Hospice)? DNR status @ -No What co-morbidities impacted this encounter? (DM, HTN, Smoking, COPD, CAD, Cancer, CVA, ARF, Chemo, Hep., AIDS, mental health diagnosis, sleep apnea, morbid obesity)? @ -Morbid obesity Was patient admitted / discharged? Hospital course, mention meds given and route, prescriptions, significant lab abnormalities, going to OR and other pertinent info. @ -Admit The patient was seen and evaluated immediately upon arrival emergency department. Patient was noted to be tachycardic and what appeared to be an atrial flutter with a 2-1 block. IV access was obtained patient was placed on shelter monitor with continuous pulse ox. Patient was started on Cardizem and given IV hydration. She had no change in her heart rate whatsoever with Cardizem was given a single IV push of metoprolol at which time the rhythm appeared to change from atrial flutter with a 2-1 block to A-fib with occasional RVR. Rates were ranging between 80s and 130. Labs did result with a minimally elevated troponin this is likely a type II NSTEMI secondary to demand ischemia due to the prolonged tachycardia. However given the elevation patient will be started on heparin. At this time patient will be admitted for new onset A-fib RVR resulting in elevated troponin. Patient to be admitted to the [facility] hospitalist group. Undiagnosed new problem with uncertain prognosis? @ -Yes Drug Therapy requiring intensive monitoring for toxicity (Heparin, Nitro, Insulin, Cardizem)? @ -Yes, heparin Were any procedures done? @ -No Diagnosis/symptom? @ -New onset A-fib RVR, elevated troponin Acute, or Chronic, or Acute on Chronic? @ -Acute Uncomplicated (without systemic symptoms) or Complicated (systemic symptoms)? @ -Complicated Side effects of treatment? @ -No Exacerbation, Progression, or Severe Exacerbation? @ -No Poses a threat to life or bodily function? How? (Chest pain, [place], [place], pneumonia, PE, COPD, DKA, ARF, appy, cholecystitis, CVA, Diverticulitis, Homicidal, Suicidal, threat to staff... and all critical care pts) @ -Yes, can resulted in acute heart failure or arrhythmia. - Lab Data Result diagrams: 09/01/24 21:16 09/01/24 21:16 Lab Results 09/01/24 09/01/24 09/01/24 Range/Units 21:16 21:16 21:16 WBC 11.25 H (4.50-10.00) 10*3/uL RBC 4.52 (4.10-5.20) 10*6/uL Hgb 13.4 (12.0-15.0) g/dL Hct 40.3 (37.2-46.3) % MCV 89.2 (80.0-97.0) fL MCH 29.6 (27.0-32.0) pg MCHC 33.3 (32.0-37.0) g/dL Plt Count 243 (140-440) 10*3/uL MPV 9.9 (9.5-12.2) fL Immature Gran % (Auto) 0.7 % Neutrophils % 76.9 % Lymphocytes % 14.0 % Monocytes % 7.2 % Eosinophils % 0.5 % Basophils % 0.7 % Immature Gran # 0.08 H (0.00-0.04) 10*3/uL Neutrophils # 8.65 H (1.80-7.70) 10*3/uL Lymphocytes # 1.57 (0.90-5.00) 10*3/uL Monocytes # 0.81 (0.20-1.00) 10*3/uL Eosinophils # 0.06 (0.04-0.35) 10*3/uL Basophils # 0.08 (0.00-0.10) 10*3/uL PT 11.1 (10.0-12.5) sec INR 1.0 (<1.2) APTT 24.8 (22.0-30.0) sec Sodium 136 L (137-145) mmol/L Potassium 4.2 (3.5-5.1) mmol/L Chloride 101 (98-107) mmol/L Carbon Dioxide 23 (22-30) mmol/L Anion Gap 12 mmol/L BUN 16 (7-17) mg/dL Creatinine 0.62 (0.52-1.04) mg/dL Est GFR (CKD-EPI)AfAm >90 (>60 ml/min/1.73 sqM) Est GFR (CKD-EPI)NonAf >90 (>60 ml/min/1.73 sqM) Glucose 154 H (74-99) mg/dL Calcium 10.3 H (8.4-10.2) mg/dL Magnesium 1.8 (1.6-2.3) mg/dL Total Bilirubin 1.1 (0.2-1.3) mg/dL AST 29 (14-36) U/L ALT 27 (4-34) U/L Alkaline Phosphatase 123 (38-126) U/L Troponin I (0.000-0.034) ng/mL Total Protein 6.7 (6.3-8.2) g/dL Albumin 4.1 (3.5-5.0) g/dL TSH 2.180 (0.465-4.680) mIU/L 09/01/24 Range/Units 21:16 WBC (4.50-10.00) 10*3/uL RBC (4.10-5.20) 10*6/uL Hgb (12.0-15.0) g/dL Hct (37.2-46.3) % MCV (80.0-97.0) fL MCH (27.0-32.0) pg MCHC (32.0-37.0) g/dL Plt Count (140-440) 10*3/uL MPV (9.5-12.2) fL Immature Gran % (Auto) % Neutrophils % % Lymphocytes % % Monocytes % % Eosinophils % % Basophils % % Immature Gran # (0.00-0.04) 10*3/uL Neutrophils # (1.80-7.70) 10*3/uL Lymphocytes # (0.90-5.00) 10*3/uL Monocytes # (0.20-1.00) 10*3/uL Eosinophils # (0.04-0.35) 10*3/uL Basophils # (0.00-0.10) 10*3/uL PT (10.0-12.5) sec INR (<1.2) APTT (22.0-30.0) sec Sodium (137-145) mmol/L Potassium (3.5-5.1) mmol/L Chloride (98-107) mmol/L Carbon Dioxide (22-30) mmol/L Anion Gap mmol/L BUN (7-17) mg/dL Creatinine (0.52-1.04) mg/dL Est GFR (CKD-EPI)AfAm (>60 ml/min/1.73 sqM) Est GFR (CKD-EPI)NonAf (>60 ml/min/1.73 sqM) Glucose (74-99) mg/dL Calcium (8.4-10.2) mg/dL Magnesium (1.6-2.3) mg/dL Total Bilirubin (0.2-1.3) mg/dL AST (14-36) U/L ALT (4-34) U/L Alkaline Phosphatase (38-126) U/L Troponin I 0.048 H* (0.000-0.034) ng/mL Total Protein (6.3-8.2) g/dL Albumin (3.5-5.0) g/dL TSH (0.465-4.680) mIU/L Disposition Clinical Impression: Atrial flutter, Atrial fibrillation, Elevated troponin level, Premature atrial contraction Disposition: ADMITTED IP TO THIS HOSP Condition: Serious Is patient prescribed a controlled substance at d/c from ED?: No Referrals: Juanito Abreu DO [Primary Care Provider] - 1-2 days
[2024-09-01] MEDS: SODIUM CHLORIDE 0.9% 1,000 ML IV STA (21:34)
[2024-09-01] MEDS: DILTIAZEM 5 MG/ML 5 ML VIAL IVP STA (21:35)
[2024-09-01] MEDS: DILTIAZEM 125 MG in DEXTROSE 5% IN WATER 100 ML IV SCH (21:44)
[2024-09-01 22:07] LABS: Basophils # (A) 0.08 10*3/uL (0.00-0.10); Basophils % (A) 0.7 %; Eosinophils # (A) 0.06 10*3/uL (0.04-0.35); Eosinophils % (A) 0.5 %; HCT 40.3 % (37.2-46.3); HGB 13.4 g/dL (12.0-15.0); Lymphocytes # (A) 1.57 10*3/uL (0.90-5.00); MCH 29.6 pg (27.0-32.0); MCHC 33.3 g/dL (32.0-37.0); MCV 89.2 fL (80.0-97.0); Mean Platelet Volume 9.9 fL (9.5-12.2); Monocytes # (A) 0.81 10*3/uL (0.20-1.00); Monocytes % (A) 7.2 %; Neutrophils # (A) 8.65 10*3/uL (1.80-7.70); Neutrophils % (A) 76.9 %; Platelet Count 243 10*3/uL (140-440); RBC 4.52 10*6/uL (4.10-5.20); RDW 17.2 % (11.5-14.5); WBC 11.25 10*3/uL (4.50-10.00)
[2024-09-01 22:13] LABS: Partial Thromboplastin Time 24.8 sec (22.0-30.0); Prothrombin Time 11.1 sec (10.0-12.5)
[2024-09-01 22:14] LABS: ALT 27 U/L (4-34); AST 29 U/L (14-36); African American GFR (CKD) >90 (>60 ml/min/1.73 sqM); Albumin 4.1 g/dL (3.5-5.0); Alkaline Phosphatase 123 U/L (38-126); Anion Gap 12 mmol/L; Blood Urea Nitrogen 16 mg/dL (7-17); Calcium 10.3 mg/dL (8.4-10.2); Carbon Dioxide 23 mmol/L (22-30); Chloride 101 mmol/L (98-107); Glucose 154 mg/dL (74-99); Magnesium 1.8 mg/dL (1.6-2.3); Non-African American GFR(CKD) >90 (>60 ml/min/1.73 sqM); Potassium 4.2 mmol/L (3.5-5.1); Sodium 136 mmol/L (137-145); Total Bilirubin 1.1 mg/dL (0.2-1.3); Total Protein 6.7 g/dL (6.3-8.2)
--- NOTE | 2024-09-01 22:42 | XR ---
EXAMINATION TYPE: XR chest 1V portable DATE OF EXAM: 09/01/2024 9:42 PM COMPARISON: None. CLINICAL INDICATION: Female, 59 years old with history of dysrhythmia, TECHNIQUE: XR chest 1V portable view(s) obtained. FINDINGS: The heart size is normal. The pulmonary vasculature is normal. Left lower lobe infiltrate is present with partial silhouetting of the diaphragm. Correlate for pneum onia or atelectasis IMPRESSION: 1. Left lower lobe infiltrate. Correlate for atelectasis or pneumonia. Follow-up is recommended [facility], Workstation: [facility], 09/01/2024 10:40 PM
[2024-09-01] MEDS: METOPROLOL TARTRATE 5 MG/5 ML VIAL IVP STA (23:39)
[2024-09-01] MEDS: HEPARIN SOD,PORK IN 0.45% NACL 25,000 UNIT in 0.45% NACL 1 250ML.BAG IV SCH (23:41)
[2024-09-02] MEDS ORDERED: NALOXONE 0.4 MG/ML 1 ML VIAL IV PRN (00:27)
[2024-09-02] MEDS ORDERED: ONDANSETRON 4 MG/2 ML VIAL IVP PRN (00:27)
[2024-09-02 00:54] LABS: INR 1.1 (<1.2); Partial Thromboplastin Time 26.1 sec (22.0-30.0); Prothrombin Time 11.7 sec (10.0-12.5)
[2024-09-02] MEDS: METOPROLOL SUCCINATE (ER) 25 MG TAB.ER.24H PO STA (01:11)
[2024-09-02] MEDS: ACETAMINOPHEN TAB 325 MG TAB PO STA (01:20)
[2024-09-02] MEDS: SODIUM CHLORIDE 0.9% 1,000 ML IV ONE (01:23)
[2024-09-02] MEDS: ONDANSETRON 4 MG/2 ML VIAL IVP STA (01:25)
[2024-09-02] MEDS: ACETAMINOPHEN TAB 500 MG TAB PO STA (01:30)
[2024-09-02 02:21] LABS: Influenza A Not Detected (Not Detectd); Influenza B Not Detected (Not Detectd); RSV Not Detected (Not Detectd)
[2024-09-02 05:46] LABS: Basophils # (A) 0.05 10*3/uL (0.00-0.10); Basophils % (A) 0.6 %; Eosinophils # (A) 0.06 10*3/uL (0.04-0.35); Eosinophils % (A) 0.7 %; HCT 36.9 % (37.2-46.3); HGB 11.7 g/dL (12.0-15.0); Lymphocytes # (A) 1.75 10*3/uL (0.90-5.00); Lymphocytes % (A) 20.1 %; MCHC 31.7 g/dL (32.0-37.0); MCV 91.3 fL (80.0-97.0); Mean Platelet Volume 9.5 fL (9.5-12.2); Monocytes # (A) 0.67 10*3/uL (0.20-1.00); Monocytes % (A) 7.7 %; Neutrophils # (A) 6.11 10*3/uL (1.80-7.70); Platelet Count 204 10*3/uL (140-440); RBC 4.04 10*6/uL (4.10-5.20); RDW 17.3 % (11.5-14.5); WBC 8.72 10*3/uL (4.50-10.00)
[2024-09-02 06:02] LABS: INR 1.1 (<1.2); Partial Thromboplastin Time 25.5 sec (22.0-30.0); Prothrombin Time 11.9 sec (10.0-12.5)
[2024-09-02] MEDS: HEPARIN SODIUM 1,000 UN/ML (10ML VL) IV PRN (06:54)
[2024-09-02] MEDS: METOPROLOL TARTRATE 50 MG TAB PO SCH ×2 (08:08→22:10)
[2024-09-02] MEDS: SODIUM CHLORIDE 0.9% 1,000 ML IV SCH (08:08)
[2024-09-02] MEDS: APIXABAN 5 MG TAB PO SCH (08:08)
--- NOTE | 2024-09-02 09:31 | US ---
EXAMINATION TYPE: US venous doppler duplex LE BI DATE OF EXAM: 09/02/2024 9:08 AM COMPARISON: 11/16/2017 US CLINICAL INDICATION: Female, 59 years old with history of r/o acute DVT bilt; Hx DVT, no symptoms per pt, Pain TECHNIQUE: The lower extremity deep venous system is examined utilizing real time linear array sonog harsh with graded compression, color doppler sonography, and spectral doppler. SIDE PERFORMED: Bilateral FINDINGS: VESSELS IMAGED: Common Femoral Vein Deep Femoral Vein Greater Saphenous Vein * Femoral Vein Popliteal Vein Small Saphenous Vein * Proximal Calf Veins (* superficial vessels) Right Leg: Negative for DVT, Color Doppler imaging shows patency of the vessels. Spectral waveforms are within normal limits. Left Leg: Negative for DVT, Color Doppler imaging shows patency of the vessels. Spectral waveforms a re within normal limits. Left popliteal fossa 3.3x1.9cm mildly complex Brown's cyst. Columnist/Commentator notes: Exam limited by edema and habitus. Poor visualization of right peroneal veins and non visualization of left calf veins. IMPRESSION: 1. Exam limitations as above. Poor visualization of right peroneal veins. Unable to adequately visual ize the left calf veins. Otherwise, no DVT identified within the visualized portions of the bilateral lower extremities. 2. Incidental small to moderate-sized 3.3 cm Brown's cyst on the left. [facility], , 09/02/2024 9:29 AM
[2024-09-02] MEDS ORDERED: ALBUTEROL NEBULIZED 2.5 MG/3 ML INHALATION PRN (10:47)
--- NOTE | 2024-09-02 10:53 | P.HPIM ---
History of Present Illness Patient is a 59-year-old female came in with complaints of not feeling well for couple weeks and lightheadedness found to be in atrial fibrillation with rapid unclear rate. Patient has a increased swelling in the left leg because of which patient had a Doppler of bilateral lower extremities which did not show any PE patient had history of DVT in the past for which patient uses Eliquis at home. Patient had cardiac cath in the past for surgical clearance which was essentially within normal limits. EKG showed A-fib patient has mild elevated troponins of 0.045 stable and plateaued chest x-ray left lower lobe infiltrate probably atelectasis will obtain Pro-[place]uan [place] level patient does not have any fever or leukocytosis at this time patient had any significant cough with sputum production. REVIEW OF SYSTEMS: All other systems are negative except those mentioned in the HPI PHYSICAL EXAMINATION: GENERAL: The patient is alert and oriented x3, not in any acute distress. Obesity w ell developed, well nourished. HEENT: Pupils are round and equally reacting to light. EOMI. No scleral icterus. No conjunctival pallor. Normocephalic, atraumatic. No pharyngeal erythema. No thyromegaly. CARDIOVASCULAR: S1 and S2 present. No murmurs, rubs, or gallops. PULMONARY: Chest is clear to auscultation, no wheezing or crackles. ABDOMEN: Soft, nontender, nondistended, normoactive bowel sounds. No palpable organomegaly. MUSCULOSKELETAL: No joint swelling or deformity. EXTREMITIES: No cyanosis, clubbing, or pedal edema. NEUROLOGICAL: Gross neurological examination did not reveal any focal deficits. SKIN: No rashes. Assessment and plan :-New onset atrial fibrillation with rapid rate patient remains on Cardizem at this time patient is a was started on EliquisCardiology evaluate patient they are planning on ablation at this time. left lower lobe infiltrate possibly atelectasis will order incentive spirometry will also order a procalcitonin level to rule out anyPneumonia at this time my suspicion is low for pneumonia history of DVT/PE in the past, patient is on Eliquis at this time - Hypertension anticoagulant medications are being held as patient is receiving Cardizem and blood pressure is normal at this time - Gastroesophageal flux disease - Hyperlipidemia DVT prophylaxis on Eliquis Past Medical History Past Medical History: Deep Vein Thrombosis (DVT), GERD/Reflux, Hyperlipidemia, Hypertension, Osteoarthritis (OA), Pulmonary Embolus (PE) Additional Past Medical History / Comment(s): DVT years ago after taking control, achalasia, restrictive lung disease. Hx Pneumonia September 2017. October 2017 DVT and PE with poor liver and kidney function at that time. Bilateral leg swelling at times, wears compression stockings to work. History of Any Multi-Drug Resistant Organisms: None Reported Past Surgical History: Cholecystectomy, Heart Catheterization, Orthopedic Surgery Additional Past Surgical History / Comment(s): BILAT CTR,STATES ESOPHAGUS WAS TOO TIGHT AND THEY REMOVED HER RIB AND DID HILAR PROCEDURE, eye surgery as a baby. COLONOSCOPY/EGD Past Anesthesia/Blood Transfusion Reactions: No Reported Reaction Past Psychological History: Anxiety, Depression Smoking Status: Former smoker Past Alcohol Use History: Occasional Past Drug Use History: None Reported - Past Family History Father Family Medical History: Cancer Additional Family Medical History / Comment(s): PROSTATE CANCER Sister(s) Family Medical History: Cancer Additional Family Medical History / Comment(s): Skin cancer. Medications and Allergies Home Medications Medication Instructions Recorded Confirmed Type Apixaban [Eliquis] 5 mg PO BID #60 tab 11/17/17 09/02/24 Rx DULoxetine HCL [Cymbalta] 60 mg PO BID 03/02/21 09/02/24 History Albuterol Nebulized [Ventolin 2.5 mg INHALATION RT-TID PRN 09/02/24 09/02/24 History Nebulized] Atorvastatin [Lipitor] 20 mg PO HS@0809/02/24 09/02/24 History Empagliflozin [Jardiance] 10 mg PO DAILY@209909/02/24 09/02/24 History Losartan Potassium [Cozaar] 100 mg PO DAILY@209909/02/24 09/02/24 History Allergies Allergy/AdvReac Type Severity Reaction Status Date / Time No Known Allergies Allergy Verified 09/02/24 07:47 Physical Exam Vitals: Vital Signs Temp Pulse Pulse Resp BP Pulse Ox 09/02/24 09:38 98.5 F 09/02/24 09:00 121 H 18 120/68 95 09/02/24 07:09 124 H 13 112/84 97 09/02/24 04:00 129 H 12 119/76 95 09/02/24 03:00 144 H 18 120/79 97 09/02/24 02:31 99.2 F 149 H 18 105/80 98 09/02/24 02:30 90 L 09/02/24 01:00 101.2 F H 151 H 18 103/89 93 L 09/02/24 00:02 158 H 20 102/69 94 L 09/01/24 23:02 168 H 20 135/89 96 09/01/24 22:02 165 H 22 111/81 98 09/01/24 21:34 165 H 24 124/84 95 09/01/24 21:15 170 H 09/01/24 20:55 97.3 F L 163 H 20 61/43 98 Intake and Output 09/01/24 09/02/24 09/02/24 22:59 06:59 14:59 Intake Total 2.333 91.014 103.167 Balance 2.333 91.014 103.167 Intake: Intake, IV Titration 2.333 91.014 103.167 Amount Diltiazem 125 mg In 2.333 19.5 103.167 Dextrose 5% in Water 100 ml @ 5 MG/HR 5 mls/hr IV .Q24H [facility] Rx#:[id number] Heparin Sod,Pork in 0.45% 71.514 NaCl 25,000 unit In 0.45 % NaCl 1 250ml.bag @ 7 UNITS/KG/HR 10.002 mls/hr IV .Q24H [facility] Rx#: [id number] Other: Weight 142.882 kg Results CBC & Chem 7: 09/02/24 05:33 09/01/24 21:16 Labs: Abnormal Lab Results - Last 24 Hours (Table) 09/01/24 09/01/24 09/01/24 Range/Units 21:16 21:16 21:16 WBC 11.25 H (4.50-10.00) 10*3/uL RBC (4.10-5.20) 10*6/uL Hgb (12.0-15.0) g/dL Hct (37.2-46.3) % MCHC (32.0-37.0) g/dL Immature Gran # 0.08 H (0.00-0.04) 10*3/uL Neutrophils # 8.65 H (1.80-7.70) 10*3/uL Sodium 136 L (137-145) mmol/L Glucose 154 H (74-99) mg/dL Calcium 10.3 H (8.4-10.2) mg/dL Troponin I 0.048 H* (0.000-0.034) ng/mL 09/02/24 09/02/24 09/02/24 Range/Units 00:31 03:54 05:33 WBC (4.50-10.00) 10*3/uL RBC 4.04 L (4.10-5.20) 10*6/uL Hgb 11.7 L (12.0-15.0) g/dL Hct 36.9 L (37.2-46.3) % MCHC 31.7 L (32.0-37.0) g/dL Immature Gran # 0.08 H (0.00-0.04) 10*3/uL Neutrophils # (1.80-7.70) 10*3/uL Sodium (137-145) mmol/L Glucose (74-99) mg/dL Calcium (8.4-10.2) mg/dL Troponin I 0.039 H* 0.045 H* (0.000-0.034) ng/mL
--- NOTE | 2024-09-02 12:30 | P.CRDCN ---
History of Present Illness Consult date: 09/02/24 Reason for Consult (text): Female with new A-fib with RVR, elevated troponin History of present illness: This is a 59-year-old female previously seen in the office by Dr. Monk in 2018 with past medical history of hypertension, obesity, hyperlipidemia, diabetes, PE and DVT currently on Eliquis. We have been asked to evaluate the patient for new onset A-fib with RVR and elevated troponins. Patient states for the past couple weeks she has been feeling very tired with shortness of breath and lightheadedness and palpitations. She states that last night she was up to the shower and has significant shortness of breath trying to get into bed. She denies fever or chills. She denies any sputum production but last month she had acute bronchitis. She does have off-and-on shortness of breath which she thinks is related to weather changes. She thought it was related to medications but her most recent medication change was over a couple months ago. Patient presented with A-fib with RVR. Patient has been started on heparin drip and me toprolol 5 mg IV push along with Cardizem bolus and drip currently at 15 mg/h. Patient was also given 1 dose of metoprolol succinate 25 mg. Patient is seen today in the emergency center waiting for bed on the cardiac stepdown unit. Dr. Berry discussed in detail patient's diagnosis and prognosis and recommendations for atrial fibrillation ablation. Patient has been on Eliquis and she states she has not missed any doses. Her last dose was last evening. Patient is agreeable to move forward with ablation today. Blood pressure 120/60, heart rate 121, pulse ox 95% on 2 L nasal cannula. -EKG: Atrial fibrillation 164 bpm -Chest x-ray: Left lower lobe infiltrate. Correlate for atelectasis or pneumonia. Films reviewed by Dr. Berry and doubtful that this is pneumonia most likely due to body habitus. -Bilateral lower extremity venous duplex ordered which revealed no DVT identified with visualized portions of the bilateral lower extremities. Incidental Brown's cyst on the left. -Laboratory studies: WBC initially 11.2, now 8.7, hemoglobin 9.7. Troponin 0.048, 0.039 and 0.045. Cepheid viral panel not detected. Creatinine 0.62. -Home cardiac medications: Atorvastatin 20 mg at bedtime, losartan 100 mg at 2100, Eliquis 5 mg twice daily, Jardiance 10 mg daily. - Review Of Systems: At the time of my exam: CONSTITUTIONAL: Denies fever or chills. HEENT: Denies blurred vision, vision changes, or eye pain. Denies hemoptysis CARDIOVASCULAR: Denies chest pain. Denies orthopnea. Denies PND. Denies palpitations RESPIRATORY: Denies shortness of breath. GASTROINTESTINAL: Denies abdominal pain. Denies nausea or vomiting. HEMATOLOGIC: Denies bleeding disorders. GENITOURINARY: Denies any blood in urine. SKIN: Denies puritis. Denies rash. Physical examination: Gen: This is 59-year-old obese female in no acute respiratory distress. VS: reviewed HEENT: Head is atraumatic, normocephalic. Pupils equal, round. Sclerae is anicteric. NECK: Supple. No JVD. LUNGS: Clear to auscultation. No wheezes or rhonchi. No intercostal retractions. HEART: Irregular rate and rhythm. No murmur. ABDOMEN: Soft No tenderness. EXTREMITIES: No pedal edema. No calf tenderness. NEUROLOGICAL: Patient is awake, alert and oriented x3. Assessment: New onset paroxysmal atrial fibrillation with RVR, onset probably couple weeks ago History of PE and DVT on Eliquis Hypertension Hyperlipidemia Diabetes Morbid obesity with BMI of 43 Plan: Resume patient's home cardiac medications Start patient on metoprolol tartrate 50 mg 3 times daily Resume Eliquis Continue heparin drip until ablation, overlap with Eliquis Schedule patient for atrial fibrillation ablation today Obtain 2-D echocardiogram and Doppler study to assess cardiac structure and function Further recommendations to follow based upon clinical course Thank you kindly for this consultation. Nurse practitioner note has been reviewed, I agree with documented findings and plan of care. Patient was seen and examined. Past Medical History Past Medical History: Deep Vein Thrombosis (DVT), GERD/Reflux, Hyperlipidemia, Hypertension, Osteoarthritis (OA), Pulmonary Embolus (PE) Additional Past Medical History / Comment(s): DVT years ago after taking control, achalasia, restrictive lung disease. Hx Pneumonia September 2017. October 2017 DVT and PE with poor liver and kidney function at that time. Bilateral leg swelling at times, wears compression stockings to work. History of Any Multi-Drug Resistant Organisms: None Reported Past Surgical History: Cholecystectomy, Heart Catheterization, Orthopedic Surgery Additional Past Surgical History / Comment(s): BILAT CTR,STATES ESOPHAGUS WAS TOO TIGHT AND THEY REMOVED HER RIB AND DID HILAR PROCEDURE, eye surgery as a baby. COLONOSCOPY/EGD Past Anesthesia/Blood Transfusion Reactions: No Reported Reaction Past Psychological History: Anxiety, Depression Smoking Status: Former smoker Past Alcohol Use History: Occasional Past Drug Use History: None Reported - Past Family History Father Family Medical History: Cancer Additional Family Medical History / Comment(s): PROSTATE CANCER Sister(s) Family Medical History: Cancer Additional Family Medical History / Comment(s): Skin cancer. Medications and Allergies Home Medications Medication Instructions Recorded Confirmed Type Apixaban [Eliquis] 5 mg PO BID #60 tab 11/17/17 09/02/24 Rx DULoxetine HCL [Cymbalta] 60 mg PO BID 03/02/21 09/02/24 History Albuterol Nebulized [Ventolin 2.5 mg INHALATION RT-TID PRN 09/02/24 09/02/24 History Nebulized] Atorvastatin [Lipitor] 20 mg PO HS@0800 09/02/24 09/02/24 History Empagliflozin [Jardiance] 10 mg PO DAILY@209909/02/24 09/02/24 History Losartan Potassium [Cozaar] 100 mg PO DAILY@209909/02/24 09/02/24 History Allergies Allergy/AdvReac Type Severity Reaction Status Date / Time No Known Allergies Allergy Verified 09/02/24 07:47 Physical Exam Vitals: Vital Signs Temp Pulse Pulse Resp BP Pulse Ox 09/02/24 07:09 124 H 13 112/84 97 09/02/24 04:00 129 H 12 119/76 95 09/02/24 03:00 144 H 18 120/79 97 09/02/24 02:31 99.2 F 149 H 18 105/80 98 09/02/24 02:30 90 L 09/02/24 01:00 101.2 F H 151 H 18 103/89 93 L 09/02/24 00:02 158 H 20 102/69 94 L 09/01/24 23:02 168 H 20 135/89 96 09/01/24 22:02 165 H 22 111/81 98 09/01/24 21:34 165 H 24 124/84 95 09/01/24 21:15 170 H 09/01/24 20:55 97.3 F L 163 H 20 61/43 98 Intake and Output 09/01/24 09/02/24 09/02/24 22:59 06:59 14:59 Intake Total 2.333 91.014 103.167 Balance 2.333 91.014 103.167 Intake: Intake, IV Titration 2.333 91.014 103.167 Amount Diltiazem 125 mg In 2.333 19.5 103.167 Dextrose 5% in Water 100 ml @ 5 MG/HR 5 mls/hr IV .Q24H [facility] Rx#:[id number] Heparin Sod,Pork in 0.45% 71.514 NaCl 25,000 unit In 0.45 % NaCl 1 250ml.bag @ 7 UNITS/KG/HR 10.002 mls/hr IV .Q24H [facility] Rx#: [id number] Other: Weight 142.882 kg Results 09/02/24 05:33 09/01/24 21:16 Cardiac Enzymes 09/01/24 09/01/24 09/02/24 Range/Units 21:16 21:16 00:31 AST 29 (14-36) U/L Troponin I 0.048 H* 0.039 H* (0.000-0.034) ng/mL 09/02/24 Range/Units 03:54 AST (14-36) U/L Troponin I 0.045 H* (0.000-0.034) ng/mL Coagulation 09/01/24 09/02/24 09/02/24 Range/Units 21:16 00:31 05:33 PT 11.1 11.7 11.9 (10.0-12.5) sec APTT 24.8 26.1 25.5 (22.0-30.0) sec CBC 09/01/24 09/02/24 Range/Units 21:16 05:33 WBC 11.25 H 8.72 (4.50-10.00) 10*3/uL RBC 4.52 4.04 L (4.10-5.20) 10*6/uL Hgb 13.4 11.7 L (12.0-15.0) g/dL Hct 40.3 36.9 L (37.2-46.3) % Plt Count 243 204 (140-440) 10*3/uL Comprehensive Metabolic Panel 09/01/24 Range/Units 21:16 Sodium 136 L (137-145) mmol/L Potassium 4.2 (3.5-5.1) mmol/L Chloride 101 (98-107) mmol/L Carbon Dioxide 23 (22-30) mmol/L BUN 16 (7-17) mg/dL Creatinine 0.62 (0.52-1.04) mg/dL Glucose 154 H (74-99) mg/dL Calcium 10.3 H (8.4-10.2) mg/dL AST 29 (14-36) U/L ALT 27 (4-34) U/L Alkaline Phosphatase 123 (38-126) U/L Total Protein 6.7 (6.3-8.2) g/dL Albumin 4.1 (3.5-5.0) g/dL Current Medications Generic Name Dose Route Start Last Admin Trade Name Freq PRN Reason Stop Dose Admin Heparin Sodium (Porcine) 0 unit 09/01/24 23:24 09/02/24 06:54 Heparin Sodium 1,000 Un/Ml (10ml Vl) IV 4,000 unit PER PROTOCOL PRN Administration Low PTT Protocol Diltiazem HCl 125 mg/ Dextrose 125 mls @ 5 mls/hr 09/01/24 21:30 09/02/24 07:02 /Water IV 15 mg/hr .Q24H [facility] 15 mls/hr Administration Protocol 5 MG/HR Heparin Sodium/Sodium Chloride 250 mls @ 10.002 mls/hr 09/01/24 23:30 09/02/24 06:50 25,000 unit/ Sodium Chloride IV 10 units/kg/hr .Q24H [facility] 14.288 mls/hr Titration Protocol 7 UNITS/KG/HR Naloxone HCl 0.2 mg 09/02/24 00:27 Naloxone 0.4 Mg/Ml 1 Ml Vial IV Q2M PRN Opioid Reversal Ondansetron HCl 4 mg 09/02/24 00:27 Ondansetron 4 Mg/2 Ml Vial IVP Q8HR PRN Nausea And Vomiting Intake and Output 09/01/24 09/02/24 09/02/24 22:59 06:59 14:59 Intake Total 2.333 91.014 103.167 Balance 2.333 91.014 103.167 Intake: Intake, IV Titration 2.333 91.014 103.167 Amount Diltiazem 125 mg In 2.333 19.5 103.167 Dextrose 5% in Water 100 ml @ 5 MG/HR 5 mls/hr IV .Q24H [facility] Rx#:[id number] Heparin Sod,Pork in 0.45% 71.514 NaCl 25,000 unit In 0.45 % NaCl 1 250ml.bag @ 7 UNITS/KG/HR 10.002 mls/hr IV .Q24H [facility] Rx#: [id number] Other: Weight 142.882 kg 09/02/24 05:33 09/01/24 21:16
[2024-09-02 13:44] LABS: Glucose,Whole Blood 102 mg/dL (70-110)
[2024-09-02] MEDS ORDERED: LIDOCAINE 1% INJ 10MG/ML (20 ML MDV) ONE (14:42)
[2024-09-02] MEDS ORDERED: PROPOFOL 10 MG/ML 20 ML VIAL IV ONE (14:42)
[2024-09-02] MEDS ORDERED: DEXAMETHASONE SOD PHOSPHATE 4 MG/ML 1 ML VIAL ONE (14:42)
[2024-09-02] MEDS ORDERED: PHENYLEPHRINE 10 MG/ML VIAL ONE (14:42)
[2024-09-02] MEDS ORDERED: HEPARIN SODIUM,PORCINE 5,000 UNIT/ML 1 ML VIAL ONE (14:42)
[2024-09-02] MEDS ORDERED: SUCCINYLCHOLINE CHLORIDE 200 MG/10 ML VIAL IV ONE (14:42)
[2024-09-02] MEDS ORDERED: CALCIUM CHLORIDE 100 MG/ML 10 ML SYRINGE ONE (14:42)
[2024-09-02] MEDS ORDERED: HEPARIN SODIUM,PORCINE 10,000 UNIT/ML 1 ML VIAL ONE (14:42)
[2024-09-02] MEDS ORDERED: fentaNYL (PF) 50 MCG/ML 2 ML AMP ONE (14:42)
[2024-09-02] MEDS ORDERED: MIDAZOLAM 2 MG/2 ML VIAL ONE (14:42)
[2024-09-02] MEDS ORDERED: ONDANSETRON 4 MG/2 ML VIAL ONE (14:42)
[2024-09-02] MEDS: IV FLUID CONTINUATION 1,000 ML IV ONE (14:45)
[2024-09-02] MEDS: HEPARIN SOD,PORK IN 0.45% NACL 25,000 UNIT in 0.45% NACL 1 250ML.BAG IV ONE (15:00)
[2024-09-02] MEDS: HEPARIN SODIUM,PORCINE 10,000 UNIT in SODIUM CHLORIDE 0.9% 1,000 ML IRRIGATION ONE (15:01)
[2024-09-02] MEDS: HEPARIN SODIUM,PORCINE (1 ML) 2,500 UNIT in SODIUM CHLORIDE 0.9% 250 ML IRRIGATION ONE (15:02)
[2024-09-02] MEDS: LIDOCAINE 1% INJ 10MG/ML (20 ML MDV) SQ ONE (15:26)
[2024-09-02] MEDS: ROPIVACAINE 5 MG/ML 30 ML VIAL MISCELLANE ONE (15:27)
[2024-09-02] MEDS: LACTATED RINGERS 1,000 ML IV ONE (17:05)
[2024-09-02] MEDS: IOPAMIDOL-370 100ML BTL INJ ONE (17:05)
[2024-09-02] MEDS ORDERED: ACETAMINOPHEN TAB 325 MG TAB PO PRN (17:46)
--- NOTE | 2024-09-02 17:58 | P.EPPROC ---
- EP Procedure Note Electrophysiology Procedure Note: PROCEDURE A. fib ablation with PVI and left atrial septal ablation DIAGNOSIS Paroxysmal atrial fibrillation, symptomatic, refractory to therapy, refractory to rate control medications, very symptomatic with shortness of breath chest discomfort and dizziness for the last several weeks RESULT No left atrial appendage mass seen on intracardiac echo, normal LV function Successful A. fib ablation/pulmonary vein isolation of all veins using cryo- ablation Complete entrance block in all 4 veins confirmed No evidence for phrenic nerve injury Left atrial septal ablation Esophageal deflection: Extreme right esophagus, difficult to deflect Electrical cardioversion with a synchronized shock across the chest YES, at the start of the study since patient was hypotensive after general anesthesia PROCEDURE DETAILS Written informed consent prior to procedure. Patient brought to the EP lab. General anesthesia given. Heparin administered. A city maintained above 300 seconds Both groins prepped and draped per protocol and venous sheaths placed. Esophagus intubated, circa catheter for temperature monitoring an endoscope for possible esophageal deflection. Phrenic nerve monitoring performed. Esophageal temperature monitoring performed. Esophageal deflection performed if circa catheter overlapping with the balloon or circa temperature less than 27.5°C Intracardiac echocardiography performed. Pericardium evaluated. Left atrial appendage evaluated. Left atrium evaluated along with pulmonary veins Transseptal catheterization performed under fluoroscopic guidance and intracardiac echo guidance Cryoablation sheath exchanged, balloon catheter along with achieve catheter placed in the left atrium. Pulmonary veins isolated in the following sequence: Left superior pulmonary vein followed by left inferior pulmonary vein, followed by right inferior pulmonary vein and lastly right superior pulmonary vein. Phrenic nerve stimulation along with capture thresholds within the SVC and right superior pulmonary vein to identify the phrenic nerve proximity to the cryo- balloon. Pulmonary veins isolated and confirmed with entrance and exit block. Phrenic nerve integrity confirmed at the end of the procedure Ablation of the left atrial septum performed with cannulation of the superior branch of the right inferior and the inferior branch of the right superior vein to achieve ablation of the posterior septum of the left atrium. Ablation of electrograms confirmed with achieve catheter Electrical cardioversion performed once intracardiac echo revealed no intracardiac mass in the left atrium and the left atrial appendage Patient was tachycardic and hypotensive with atrial fibrillation, under general anesthesia. Electrical cardioversion was successfully performed. Rest of ablation was performed in sinus rhythm Diagnostic catheters for the high right atrium, His bundle, coronary sinus placed. LA and RA pressures recorded LA pressure: 9/0/5 mmHg Diagnostic EP study with coronary sinus pacing and recording Baseline measurements: Sinus node recovery times were 1057, 1117 and 1160 ms. AV node Wenckebach block 340 ms High-dose Isopril employed No atrial fibrillation induced Venous sheaths were removed and hemostasis assured with a closure device. Patient extubated and transferred to recovery Increase procedural time Extreme right esophagus, difficult to deflect Multiple cryo ablations at the antral level of the left superior pulmonary vein. Delayed elimination of pulmonary vein potentials despite excellent occlusion and excellent temperatures Right superior pulmonary vein was also difficult to isolate. Subselection of different tributaries with shorter lesion duration to achieve complete isolation. This was an extreme right esophagus and therefore shortened lesions were applied to avoid esophageal injury Right inferior pulmonary vein was also difficult to engage and had 2 different tributaries. Each was cannulated. Short multiple lesions applied for isolation, to avoid lesions stacking due to proximity of the esophagus there was difficult to deflect At the end all veins showed entrance and exit block. The left superior pulmonary vein was evaluated in great detail before completing the case for complete exit block This took extra time and effort to keep the esophagus a safe distance away from the cryoablation balloon. PROCEDURES PERFORMED Diagnostic EP study CS pacing and recording Left and right transseptal catheterization Catheter the mapping of the tachycardia Intracardiac echocardiography Pulmonary vein isolation with transseptal and comprehensive EPS, 39003 Extended procedure duration Drug infusion, +45615 Linear ablation, left atrium, +54987 Electrical cardioversion with a synchronized shock across the chest [id number]
--- NOTE | 2024-09-02 18:03 | P.PRLE ---
RE: Mercedes Bone Dear Neyda Long came to the hospital with A-fib with RVR. She was already on Eliquis and she is very symptomatic. Her rate control is extremely difficult despite IV and p.o. medications. Therefore I proceeded directly with an A-fib ablation with PVI Successful ablation of the pulmonary veins at an antral level and left atrial septal ablation performed Following that high-dose Isopril was infused and no further atrial fibrillation was induced She will continue Eliquis lifelong In view of her atrial fibrillation, GLP-1 weight loss medication would also be recommended Thank you for entrusting me with the care of the patient Warm regards Sincerely Enrrique Berry
[2024-09-02] MEDS: droPERidol 2.5 MG/ML VIAL IVP STA (18:11)
[2024-09-02 19:51] LABS: Glucose,Whole Blood 139 mg/dL (70-110)
[2024-09-02] MEDS: DAPAGLIFLOZIN PROPANEDIOL 5 MG TABLET PO SCH (22:10)
[2024-09-02] MEDS: DULoxetine HCL 60 MG CAPSULE.DR PO SCH (22:10)
[2024-09-02] MEDS: ACETAMINOPHEN IV (For NPO) 1,000 MG in EMPTY BAG 1 BAG IVPB ONE (22:10)
[2024-09-03 06:44] LABS: African American GFR (CKD) >90 (>60 ml/min/1.73 sqM); Anion Gap 9 mmol/L; Blood Urea Nitrogen 24 mg/dL (7-17); Carbon Dioxide 25 mmol/L (22-30); Chloride 105 mmol/L (98-107); Glucose 117 mg/dL (74-99); Magnesium 2.2 mg/dL (1.6-2.3); Non-African American GFR(CKD) >90 (>60 ml/min/1.73 sqM); Potassium 4.7 mmol/L (3.5-5.1); Sodium 139 mmol/L (137-145)
[2024-09-03 09:24] VITALS: TEMP 97.8
[2024-09-03] MEDS: ATORVASTATIN 20 MG TAB PO SCH (09:24)
--- NOTE | 2024-09-03 10:56 | CA ---
Transthoracic Echo Report Name: Mercedes Bone Age: 59 Gender: F : 1965 Exam Date: 09/03/2024 07:55 Exam Location: [facility] Ht (in): 71 Wt (lb): 315 Ordering Physician: Emma Vidal Attending/Referring Phys: [id number], [employer] Supervisor Alesha Arango RDCS Procedure CPT: Indications: Afib, do once HR lower Cardiac Hx: Technical Quality: Fair Contrast 1: Total Dose (mL): Contrast 2: Total Dose (mL): MEASUREMENTS (Male / Female) Normal Values 2D ECHO LV Diastolic Diameter PLAX 4.4 cm 4.2 - 5.9 / 3.9 - 5.3 cm LV Systolic Diameter PLAX 2.9 cm IVS Diastolic Thickness 1.3 cm 0.6 - 1.0 / 0.6 - 0.9 cm LVPW Diastolic Thickness 1.6 cm 0.6 - 1.0 / 0.6 - 0.9 cm LV Relative Wall Thickness 0.7 LVOT Diameter 2.5 cm LV Diastolic Volume MOD BP 147.1 cm??? 67 - 155 / 56 - 104 cm??? LV Systolic Volume MOD BP 62.1 cm??? 22 - 58 / 19 - 49 cm??? LV Ejection Fraction MOD BP 57.8 % >= 55 % LV Cardiac Index MOD BP 2355.8 cm???/min???m??? LV Diastolic Volume MOD 4C 133.2 cm??? LV Systolic Volume MOD 4C 54.3 cm??? LV Ejection Fraction MOD 4C 59.3 % LV Cardiac Index MOD 4C 2187.4 cm???/min???m??? LV Diastolic Length 4C 8.0 cm LV Systolic Length 4C 6.7 cm LV Diastolic Volume MOD 2C 158.1 cm??? LV Systolic Volume MOD 2C 69.6 cm??? LV Ejection Fraction MOD 2C 56.0 % LV Cardiac Index MOD 2C 2452.4 cm???/min???m??? LV Diastolic Length 2C 8.3 cm LV Systolic Length 2C 6.9 cm LA Volume 100.9 cm??? 18 - 58 / 22 - 52 cm??? LA Volume Index 36.8 cm???/m??? 16 - 28 cm???/m??? Ascending Aorta Diameter 2.9 cm DOPPLER AV Peak Velocity 168.2 cm/s AV Peak Gradient 11.3 mmHg AV Mean Velocity 120.3 cm/s AV Mean Gradient 6.2 mmHg AV Velocity Time Integral 36.6 cm LVOT Peak Velocity 113.8 cm/s LVOT Peak Gradient 5.2 mmHg LVOT Velocity Time Integral 24.2 cm LVOT Stroke Volume 116.1 cm??? LVOT Stroke Volume Index 45.4 ml/m??? LVOT Cardiac Index 3217.3 cm???/min???m??? AV Area Cont Eq vti 3.2 cm??? AV Area Cont Eq pk 3.2 cm??? MV Area PHT 4.0 cm??? Mitral E Point Velocity 77.1 cm/s Mitral A Point Velocity 47.9 cm/s Mitral E to A Ratio 1.6 MV Deceleration Time 190.9 ms TR Peak Velocity 245.7 cm/s TR Peak Gradient 24.2 mmHg Right Atrial Pressure 20.0 mmHg Pulmonary Artery Systolic Pressu 44.2 mmHg Right Ventricular Systolic Press 44.2 mmHg PV Peak Velocity 99.1 cm/s PV Peak Gradient 3.9 mmHg FINDINGS Left Ventricle Left ventricular ejection fraction is estimated at 55-60 %. Mildly increased septal wall thickness. No obvious regional wall motion abnormalities. Right Ventricle Mild right ventricular dilatation. Normal right ventricular global systolic function. Mild to moderate pulmonary hypertension. Right Atrium Moderate right atrial dilatation. Left Atrium Moderately increased left atrial volume. Mildly increased left atrial area. Mitral Valve Structurally normal mitral valve. No evidence for mitral valve prolapse. No mitral stenosis. Trace mitral regurgitation. Aortic Valve Aortic valve not well visualized. No aortic stenosis. Mild aortic regurgitation. Tricuspid Valve Structurally normal tricuspid valve. No tricuspid stenosis. Trace to mild tricuspid regurgitation. Pulmonic Valve Pulmonic valve not well visualized. No pulmonic stenosis. Trace pulmonic regurgitation. Pericardium No pericardial effusion. Aorta Normal size aortic root and proximal ascending aorta. CONCLUSIONS Normal LV size and systolic function. Mildly enlarged right ventricle. Enlarged atria to a mild to moderate extent. Mild mitral and tricuspid regurgitation. No pericardial effusion Previewed by: Dr. Kirstie Swan MD (Electronically Signed) Final Date: 03 Sep 2024 10:55
[2024-09-03 11:12] VITALS: BP 105/74; PULSE 80; RESP 16
--- NOTE | 2024-09-03 11:20 | P.PN ---
Subjective Progress Note Date: 09/03/24 Reason for Consult (text): Female with new A-fib with RVR, elevated troponin History of present illness: This is a 59-year-old female previously seen in the office by Dr. Monk in 2018 with past medical history of hypertension, obesity, hyperlipidemia, diabetes, PE and DVT currently on Eliquis. We have been asked to evaluate the patient for new onset A-fib with RVR and elevated troponins. Patient states for the past couple weeks she has been feeling very tired with shortness of breath and lightheadedness and palpitations. She states that last night she was up to the shower and has significant shortness of breath trying to get into bed. She d enies fever or chills. She denies any sputum production but last month she had acute bronchitis. She does have off-and-on shortness of breath which she thinks is related to weather changes. She thought it was related to medications but her most recent medication change was over a couple months ago. Patient presented with A-fib with RVR. Patient has been started on heparin drip and metoprolol 5 mg IV push along with Cardizem bolus and drip currently at 15 mg/h. Patient was also given 1 dose of metoprolol succinate 25 mg. Patient is seen today in the emergency center waiting for bed on the cardiac stepdown unit. Dr. Berry discussed in detail patient's diagnosis and prognosis and jayden mmendations for atrial fibrillation ablation. Patient has been on Eliquis and she states she has not missed any doses. Her last dose was last evening. Patient is agreeable to move forward with ablation today. Blood pressure 120/60, heart rate 121, pulse ox 95% on 2 L nasal cannula. -EKG: Atrial fibrillation 164 bpm -Chest x-ray: Left lower lobe infiltrate. Correlate for atelectasis or pneumo jaiden. Films reviewed by Dr. Berry and doubtful that this is pneumonia most likely due to body habitus. -Bilateral lower extremity venous duplex ordered which revealed no DVT identified with visualized portions of the bilateral lower extremities. Incidental Brown's cyst on the left. -Laboratory studies: WBC initially 11.2, now 8.7, hemoglobin 9.7. Troponin 0.048, 0.039 and 0.045. Cepheid viral panel not detected. Creatinine 0.62. -Home cardiac medications: Atorvastatin 20 mg at bedtime, losartan 100 mg at 2100, Eliquis 5 mg twice daily, Jardiance 10 mg daily. Addendum Symptomatic paroxysmal atrial fibrillation with RVR despite IV Cardizem 15 mg/h and metoprolol 50 mg 3 times a day Symptoms began for several weeks back as she has been complaining of increasing shortness of breath dizziness and chest pain Patient has a history of pulmonary embolism and DVT in the remote past and is al ready on Eliquis 5 mg twice a day She states she has been compliant with Eliquis 5 mg twice daily Plan Will proceed with EP study, intracardiac echo to evaluate for intracardiac mass or thrombus, A-fib ablation if there is no intracardiac mass or thrombus Continue IV heparin for now 09/03 Patient seen and examined. Yesterday, patient underwent atrial fibrillation ablation. Patient remains in a sinus rhythm this morning. She is on metoprolol at 50 mg twice daily. She denies chest pain chest pressure no palpitations. She does complain of sore throat. Sutures are out from the groin. She does have some tenderness no bleeding or hematoma. Regarding obesity, patient states that she has lost 40 pounds but will need to continue weight loss. Echocardiogram reveals normal LV size and systolic function. Mild mitral and tricuspid regurgitation. Physical examination: Gen: This is 59-year-old obese female in no acute respiratory distress. VS: reviewed HEENT: Head is atraumatic, normocephalic. Pupils equal, round. Sclerae is anicteric. NECK: Supple. No JVD. LUNGS: Clear to auscultation. No wheezes or rhonchi. No intercostal retractions. HEART: Irregular rate and rhythm. No murmur. ABDOMEN: Soft No tenderness. EXTREMITIES: No pedal edema. No calf tenderness. NEUROLOGICAL: Patient is awake, alert and oriented x3. Assessment: New onset paroxysmal atrial fibrillation with RVR, onset probably couple weeks ago History of PE and DVT on Eliquis Hypertension Hyperlipidemia Diabetes Morbid obesity with BMI of 43 Plan: Continue metoprolol tartrate 50 mg twice daily Continue Eliquis Continue other home cardiac medications Patient to get up and ambulate and if feeling well this afternoon, she is cleared for discharge from cardiology perspective and will follow-up in the office with Dr. Berry in 1 week. Nurse practitioner note has been reviewed, I agree with documented findings and plan of care. Patient was seen and examined. Objective - Vital Signs Vital signs: Vital Signs Temp 97.5 F L 09/03/24 04:00 Pulse 70 09/03/24 04:00 Resp 16 09/03/24 04:00 BP 96/60 09/03/24 04:00 Pulse Ox 98 09/03/24 04:00 FiO2 Intake & Output 09/02/24 09/03/24 09/03/24 18:59 06:59 18:59 Intake Total 1129.167 450 Balance 1129.167 450 Weight 145.5 kg Intake: IV 1026 150 Intake, IV Titration 103.167 300 Amount Diltiazem 125 mg In 103.167 Dextrose 5% in Water 100 ml @ 5 MG/HR 5 mls/hr IV .Q24H [facility] Rx#:[id number] Lactated Ringers 1,000 ml 300 @ 0 mls/hr IV .[facility] Rx#:[id number] Other: Voiding Method Toilet # Voids 1 - Labs CBC & Chem 7: 09/02/24 05:33 09/03/24 06:12 Labs: Abnormal Lab Results - Last 24 Hours (Table) 09/02/24 09/02/24 09/03/24 Range/Units 12:17 19:49 06:12 APTT 34.7 H (22.0-30.0) sec BUN 24 H (7-17) mg/dL Glucose 117 H (74-99) mg/dL POC Glucose (mg/dL) 139 H (70-110) mg/dL
[2024-09-03 11:53] LABS: Glucose,Whole Blood 134 mg/dL (70-110)
== END 2024-09-03 16:05 | disposition home or self-care (01) | DRG 274 ==
LOC: EC 20:46 → 3SCARD 09-02 00:30
PROVIDERS: ADMIT Hospitalist; ATTEND Hospitalist
PROC: 5A2204Z Restoration of Cardiac Rhythm, Single (ICD-10-PCS; 2024-09-02)
PROC: B246ZZZ Ultrasonography of Right and Left Heart (ICD-10-PCS; 2024-09-02)
PROC: 02K83ZZ Map Conduction Mechanism, Percutaneous Approach (ICD-10-PCS; 2024-09-02)
PROC: 02583ZZ Destruction of Conduction Mechanism, Percutaneous Approach (ICD-10-PCS; principal; 2024-09-02 14:15)
PROC: 02573ZK Destruction of Left Atrial Appendage, Percutaneous Approach (ICD-10-PCS; 2024-09-02 14:15)
PROC: 4A0234Z Measurement of Cardiac Electrical Activity, Percutaneous Approach (ICD-10-PCS; 2024-09-02 14:15)
PROC: 4A023FZ Measurement of Cardiac Rhythm, Percutaneous Approach (ICD-10-PCS; 2024-09-02 14:15)
DX: I48.0 Paroxysmal atrial fibrillation (principal); E11.9 Type 2 diabetes mellitus without complications; E66.01 Morbid (severe) obesity due to excess calories; F32.A Depression, unspecified; Z11.52 Encounter for screening for COVID-19; I10 Essential (primary) hypertension; I08.1 Rheumatic disorders of both mitral and tricuspid valves; Z68.41 Body mass index [BMI] 40.0-44.9, adult; J98.11 Atelectasis; I48.92 Unspecified atrial flutter; E78.5 Hyperlipidemia, unspecified; F41.9 Anxiety disorder, unspecified; I49.1 Atrial premature depolarization; M71.22 Synovial cyst of popliteal space [Baker], left knee; Z79.01 Long term (current) use of anticoagulants; Z79.84 Long term (current) use of oral hypoglycemic drugs; Z79.899 Other long term (current) drug therapy; Z86.711 Personal history of pulmonary embolism; Z86.718 Personal history of other venous thrombosis and embolism; Z87.01 Personal history of pneumonia (recurrent); Z87.891 Personal history of nicotine dependence; Z98.42 Cataract extraction status, left eye; Z98.41 Cataract extraction status, right eye; Z87.19 Personal history of other diseases of the digestive system
CPT/HCPCS: 36415; 71045; 80048; 80053; 83735; 84145; 84443; 84484; 85025; 85610; 85730; 86850; 86900; 86901; 87636; 92960; 93005; 93306; 93623; 93656; 93657; 93970; 96365; 96366; 96368; 96375; 99291

== ENCOUNTER 2024-09-06 14:11 | Inpatient (IN) | payer OTHER ==
--- NOTE | 2024-09-06 14:26 | ED ---
General Adult HPI - General Chief complaint: Shortness of Breath Stated complaint: Dizzy,SOB/Just in 09.02.24 Time Seen by Provider: 09/06/24 14:24 Source: patient Mode of arrival: wheelchair Limitations: no limitations - History of Present Illness Initial comments: Patient presents to the ED with her son for evaluation. Patient was discharged from the hospital 3 days ago after being admitted and undergoing a cardiac ablation procedure for her atrial fibrillation. Patient states that since she has been home, she has noticed dyspnea with exertion. She states that she becomes dyspneic while just walking to the bathroom. Patient denies feeling dys pneic while at rest or currently. Patient states that she does have interstitial lung disease, and she states that she has a nebulizer machine at home, which she has been using with some improvement. Patient denies having any pain, fever or chills, headache, focal numbness/weakness/neuro deficit, chest pain or pressure, cough or cold symptoms, palpitations, dizziness, syncope, abdominal pain, nausea or vomiting, diarrhea, bloody or melanotic stool, dysuria or urinary symptoms, decreased urine output, leg or calf swelling or pain, or any other symptoms or complaints. Patient is on Eliquis anticoagulation therapy. - Related Data Home Medications Medication Instructions Recorded Confirmed DULoxetine HCL [Cymbalta] 60 mg PO BID 03/02/21 09/06/24 Albuterol Nebulized [Ventolin 2.5 mg INHALATION RT-TID PRN 09/02/24 09/06/24 Nebulized] Atorvastatin [Lipitor] 20 mg PO HS 09/02/24 09/06/24 Empagliflozin [Jardiance] 10 mg PO DAILY 09/02/24 09/06/24 Previous Rx's Medication Instructions Recorded Apixaban [Eliquis] 5 mg PO BID #60 tab 11/17/17 Metoprolol Tartrate [Lopressor] 50 mg PO BID #60 tab 09/03/24 Allergies Allergy/AdvReac Type Severity Reaction Status Date / Time No Known Allergies Allergy Verified 09/06/24 17:36 Review of Systems ROS Statement: Those systems with pertinent positive or pertinent negative responses have been documented in the HPI. ROS Other: All systems not noted in ROS Statement are negative. Past Medical History Past Medical History: Deep Vein Thrombosis (DVT), GERD/Reflux, Hyperlipidemia, Hypertension, Osteoarthritis (OA), Pulmonary Embolus (PE) Additional Past Medical History / Comment(s): DVT years ago after taking control, achalasia, restrictive lung disease. Hx Pneumonia September 2017. October 2017 DVT and PE with poor liver and kidney function at that time. Bilateral leg swelling at times, wears compression stockings to work, border line diabetic. History of Any Multi-Drug Resistant Organisms: None Reported Past Surgical History: Cholecystectomy, Heart Catheterization, Orthopedic Surgery Additional Past Surgical History / Comment(s): BILAT CTR,STATES ESOPHAGUS WAS TOO TIGHT AND THEY REMOVED HER RIB AND DID HILAR PROCEDURE, eye surgery as a baby. COLONOSCOPY/EGD Past Anesthesia/Blood Transfusion Reactions: No Reported Reaction Past Psychological History: Anxiety, Depression Smoking Status: Former smoker Past Alcohol Use History: Occasional Past Drug Use History: None Reported - Past Family History Father Family Medical History: Cancer Additional Family Medical History / Comment(s): PROSTATE CANCER Sister(s) Family Medical History: Cancer Additional Family Medical History / Comment(s): Skin cancer. General Exam Limitations: no limitations General appearance: alert, in no apparent distress Head exam: Present: atraumatic Eye exam: Present: normal appearance ENT exam: Present: mucous membranes moist Neck exam: Present: other (Trachea is in midline) Respiratory exam: Present: normal lung sounds bilaterally, other (Mild, scattered expiratory wheezes). Absent: respiratory distress, rales, rhonchi, stridor Cardiovascular Exam: Present: normal rhythm, tachycardia, normal heart sounds, other (Normal radial pulses bilaterally) GI/Abdominal exam: Present: soft. Absent: tenderness, guarding Extremities exam: Present: other (Negative Homans' sign bilaterally). Absent: tenderness, pedal edema, calf tenderness Neurological exam: Present: alert, oriented X3. Absent: motor sensory deficit Psychiatric exam: Present: normal affect Skin exam: Present: warm, dry, normal color Course Vital Signs 09/06/24 09/06/24 09/06/24 14:18 15:35 15:55 Temperature 98.2 F Pulse Rate 154 H 158 H 126 H Respiratory 20 20 20 Rate Blood Pressure 131/86 141/87 124/86 O2 Sat by Pulse 95 95 96 Oximetry 09/06/24 09/06/24 09/06/24 16:00 17:00 17:30 Temperature Pulse Rate 123 H 142 H 155 H Respiratory 20 20 20 Rate Blood Pressure 122/84 132/100 130/98 O2 Sat by Pulse 95 97 97 Oximetry - Reevaluation(s) Reevaluation #1: 09/06/24 17:55 Case, H&P, test results and ED management thus far were discussed with Dr. Villafana (cardiology). Given that patient is currently stable and fairly asymptomatic, he agrees with adding a beta-eve to the patient's current diltiazem IV drip for better rate control and admitting the patient to the hospital. He has no further recommendations at this time. 09/06/24 18:04 Case, H&P, test results, ED management thus far and my discussion with Dr. Villafana as above were discussed with Dr. Ledesma. She accepts hospital admission. She has no further recommendations at this time. 09/06/24 18:10 Patient's heart rate briefly improved to the 120s with IV diltiazem, but it has now increased back up to the 150s. Metoprolol 5 mg IV has been ordered as per my discussion with Dr. Villafana as above. Patient continues to deny feeling dyspneic while at rest in the ED. Patient continues to deny having any chest pain or pressure or any other symptoms at this time. Patient remains alert and breathing comfortably. Patient is aware of her test results and my discussions as above, and she agrees with hospital admission at this time. EKG Findings - EKG Comments: EKG Findings:: ED physician interpretation (interpreted by me): Suspected atrial flutter, ventricular rate of 155 bpm, normal QRS duration, normal QT interval, nonspecific ST and T wave abnormality, normal axis Medical Decision Making - Medical Decision Making Was pt. sent in by a medical professional or institution (, PA, OUTLET MANAGER, urgent care, hospital, or intermediate...) When possible be specific @ -[No] Did you speak to anyone other than the patient for history (EMS, parent, family, police, friend...)? What history was obtained from this source @ -[No] Did you review nursing and triage notes (agree or disagree)? Why? @ -[I reviewed and agree with nursing and triage notes] Were old charts reviewed (outside hosp., previous admission, EMS record, old EKG , old radiological studies, urgent care reports/EKG's, intermediate records)? Report findings @ -[No old charts were reviewed] Differential Diagnosis (chest pain, altered mental status, abdominal pain women, abdominal pain men, vaginal bleeding, weakness, fever, dyspnea, syncope, headache, dizziness, GI bleed, back pain, seizure, CVA, palpatations, mental health, musculoskeletal)? @ -[Atrial fibrillation, atrial flutter, dysrhythmia, ACS/CO, electrolyte abnormality, dehydration, medication reaction, dyspnea, COPD, asthma, CHF, pleural effusion, pulmonary edema, pneumonia, this is not meant to be a complete list.] EKG interpreted by me (3pts min.). @ -[As above] X-rays interpreted by me (1pt min.). @ -[Chest x-ray was reviewed myself and shows a left pleural effusion and pulmonary edema. I agree with the radiologist's interpretation as above.] CT interpreted by me (1pt min.). @ -[None done] U/S interpreted by me (1pt. min.). @ -[None done] What testing was considered but not performed or refused? (CT, X-rays, U/S, labs)? Why? @ -[None] What meds were considered but not given or refused? Why? @ -[None] Did you discuss the management of the patient with other professionals (professionals i.e. , PA, OUTLET MANAGER, lab, RT, psych nurse, social work manager, sheet rock hanger, teacher, affirmative action officer, case resolution specialist)? Give summary @ -[As above.] Was smoking cessation discussed for >3mins.? @ -[No] Was critical care preformed (if so, how long)? @ -[Yes, 45 minutes.] Were there social determinants of health that impacted care today? How? (Homelessness, low income, unemployed, alcoholism, drug addiction, transportation, low edu. Level, literacy, decrease access to med. care, nursing home, rehab)? @ -[No] Was there de-escalation of care discussed even if they declined (Discuss DNR or withdrawal of care, Hospice)? DNR status @ -[No] What co-morbidities impacted this encounter? (DM, HTN, Smoking, COPD, CAD, Cancer, CVA, ARF, Chemo, Hep., AIDS, mental health diagnosis, sleep apnea, morbid obesity)? @ -[None] Was patient admitted / discharged? Hospital course, mention meds given and route, prescriptions, significant lab abnormalities, going to OR and other pertinent info. @ -[Patient's heart rate transiently improved in the ED with IV diltiazem, but has now increased back up to the 150s. IV metoprolol has been ordered for rate control. Patient's troponin is elevated, but she denies having any chest pain/pressure or dyspnea at this time. I suspect that her elevated troponin is likely secondary to her recent ablation procedure. Case was discussed with the on-call supervisor frame sample and pattern (Dr. Villafana). Will admit the patient to the hospital for cardiac monitoring, cardiology consultation and further evaluation/care. Dr. Ledesma has accepted hospital admission. Patient agrees with this plan.] Undiagnosed new problem with uncertain prognosis? @ -[No] Drug Therapy requiring intensive monitoring for toxicity (Heparin, Nitro, Insulin, Cardizem)? @ -[No] Were any procedures done? @ -[No] Diagnosis/symptom? @ -[Atrial flutter with RVR, CHF, pleural effusion, elevated troponin] Acute, or Chronic, or Acute on Chronic? @ -[default] Uncomplicated (without systemic symptoms) or Complicated (systemic symptoms)? @ -[default] Side effects of treatment? @ -[No] Exacerbation, Progression, or Severe Exacerbation? @ -[No] Poses a threat to life or bodily function? How? (Chest pain, [place], CO, pneumonia, PE, COPD, DKA, ARF, appy, cholecystitis, CVA, Diverticulitis, Homicidal, Suicidal, threat to staff... and all critical care pts) @ -[Yes, potentially.] - Lab Data Result diagrams: 09/06/24 15:25 09/06/24 15:25 Lab Results 09/06/24 09/06/24 09/06/24 Range/Units 15:25 15:25 15:25 WBC 11.50 H (4.50-10.00) 10*3/uL RBC 3.58 L (4.10-5.20) 10*6/uL Hgb 10.5 L (12.0-15.0) g/dL Hct 32.3 L (37.2-46.3) % MCV 90.2 (80.0-97.0) fL MCH 29.3 (27.0-32.0) pg MCHC 32.5 (32.0-37.0) g/dL Plt Count 277 (140-440) 10*3/uL MPV 9.6 (9.5-12.2) fL Immature Gran % (Auto) 1.6 % Neutrophils % 77.5 % Lymphocytes % 13.7 % Monocytes % 5.9 % Eosinophils % 0.6 % Basophils % 0.7 % Immature Gran # 0.18 H (0.00-0.04) 10*3/uL Neutrophils # 8.92 H (1.80-7.70) 10*3/uL Lymphocytes # 1.57 (0.90-5.00) 10*3/uL Monocytes # 0.68 (0.20-1.00) 10*3/uL Eosinophils # 0.07 (0.04-0.35) 10*3/uL Basophils # 0.08 (0.00-0.10) 10*3/uL PT 12.2 (10.0-12.5) sec INR 1.1 (<1.2) APTT 25.1 (22.0-30.0) sec Sodium 137 (137-145) mmol/L Potassium 4.4 (3.5-5.1) mmol/L Chloride 102 (98-107) mmol/L Carbon Dioxide 27 (22-30) mmol/L Anion Gap 8 mmol/L BUN 14 (7-17) mg/dL Creatinine 0.53 (0.52-1.04) mg/dL Est GFR (CKD-EPI)AfAm >90 (>60 ml/min/1.73 sqM) Est GFR (CKD-EPI)NonAf >90 (>60 ml/min/1.73 sqM) Glucose 111 H (74-99) mg/dL Calcium 10.1 (8.4-10.2) mg/dL Magnesium 2.0 (1.6-2.3) mg/dL Total Bilirubin 0.8 (0.2-1.3) mg/dL AST 22 (14-36) U/L ALT 36 H (4-34) U/L Alkaline Phosphatase 110 (38-126) U/L Troponin I (0.000-0.034) ng/mL NT-Pro-B Natriuret Pep 6790 pg/mL Total Protein 6.0 L (6.3-8.2) g/dL Albumin 3.4 L (3.5-5.0) g/dL 09/06/24 Range/Units 15:25 WBC (4.50-10.00) 10*3/uL RBC (4.10-5.20) 10*6/uL Hgb (12.0-15.0) g/dL Hct (37.2-46.3) % MCV (80.0-97.0) fL MCH (27.0-32.0) pg MCHC (32.0-37.0) g/dL Plt Count (140-440) 10*3/uL MPV (9.5-12.2) fL Immature Gran % (Auto) % Neutrophils % % Lymphocytes % % Monocytes % % Eosinophils % % Basophils % % Immature Gran # (0.00-0.04) 10*3/uL Neutrophils # (1.80-7.70) 10*3/uL Lymphocytes # (0.90-5.00) 10*3/uL Monocytes # (0.20-1.00) 10*3/uL Eosinophils # (0.04-0.35) 10*3/uL Basophils # (0.00-0.10) 10*3/uL PT (10.0-12.5) sec INR (<1.2) APTT (22.0-30.0) sec Sodium (137-145) mmol/L Potassium (3.5-5.1) mmol/L Chloride (98-107) mmol/L Carbon Dioxide (22-30) mmol/L Anion Gap mmol/L BUN (7-17) mg/dL Creatinine (0.52-1.04) mg/dL Est GFR (CKD-EPI)AfAm (>60 ml/min/1.73 sqM) Est GFR (CKD-EPI)NonAf (>60 ml/min/1.73 sqM) Glucose (74-99) mg/dL Calcium (8.4-10.2) mg/dL Magnesium (1.6-2.3) mg/dL Total Bilirubin (0.2-1.3) mg/dL AST (14-36) U/L ALT (4-34) U/L Alkaline Phosphatase (38-126) U/L Troponin I 0.624 H* (0.000-0.034) ng/mL NT-Pro-B Natriuret Pep pg/mL Total Protein (6.3-8.2) g/dL Albumin (3.5-5.0) g/dL - Radiology Data Chest x-ray: Enlarging left pleural effusion with pulmonary edema. Critical Care Time Critical Care Time: Yes Total Critical Care Time: 45 Disposition Clinical Impression: Dyspnea, Atrial flutter with rapid ventricular response, CHF (congestive heart failure), Pleural effusion, left, Elevated troponin Disposition: ADMITTED IP TO THIS HOSP Condition: Stable Is patient prescribed a controlled substance at d/c from ED?: No Referrals: Juanito Abreu DO [Primary Care Provider] - 1-2 days Time of Disposition: 17:37
[2024-09-06 15:33] LABS: Basophils # (A) 0.08 10*3/uL (0.00-0.10); Basophils % (A) 0.7 %; Eosinophils # (A) 0.07 10*3/uL (0.04-0.35); Eosinophils % (A) 0.6 %; HCT 32.3 % (37.2-46.3); HGB 10.5 g/dL (12.0-15.0); Lymphocytes # (A) 1.57 10*3/uL (0.90-5.00); Lymphocytes % (A) 13.7 %; MCH 29.3 pg (27.0-32.0); MCHC 32.5 g/dL (32.0-37.0); MCV 90.2 fL (80.0-97.0); Mean Platelet Volume 9.6 fL (9.5-12.2); Monocytes # (A) 0.68 10*3/uL (0.20-1.00); Monocytes % (A) 5.9 %; Neutrophils # (A) 8.92 10*3/uL (1.80-7.70); Neutrophils % (A) 77.5 %; Platelet Count 277 10*3/uL (140-440); RBC 3.58 10*6/uL (4.10-5.20); RDW 17.1 % (11.5-14.5)
[2024-09-06] MEDS: DILTIAZEM 5 MG/ML 5 ML VIAL IV STA (15:34)
[2024-09-06 15:42] LABS: INR 1.1 (<1.2); Partial Thromboplastin Time 25.1 sec (22.0-30.0); Prothrombin Time 12.2 sec (10.0-12.5)
[2024-09-06 15:43] LABS: ALT 36 U/L (4-34); AST 22 U/L (14-36); African American GFR (CKD) >90 (>60 ml/min/1.73 sqM); Albumin 3.4 g/dL (3.5-5.0); Alkaline Phosphatase 110 U/L (38-126); Anion Gap 8 mmol/L; Blood Urea Nitrogen 14 mg/dL (7-17); Calcium 10.1 mg/dL (8.4-10.2); Carbon Dioxide 27 mmol/L (22-30); Chloride 102 mmol/L (98-107); Glucose 111 mg/dL (74-99); Non-African American GFR(CKD) >90 (>60 ml/min/1.73 sqM); Potassium 4.4 mmol/L (3.5-5.1); Sodium 137 mmol/L (137-145); Total Bilirubin 0.8 mg/dL (0.2-1.3)
[2024-09-06 15:51] LABS: NT-Pro-B-Type Natriuretic Pept 6790 pg/mL
[2024-09-06] MEDS: DILTIAZEM 125 MG in DEXTROSE 5% IN WATER 100 ML IV SCH (16:00)
--- NOTE | 2024-09-06 16:09 | XR ---
EXAMINATION TYPE: XR chest 1V portable DATE OF EXAM: 09/06/2024 4:02 PM COMPARISON: Chest radiographs from 09/01/2024. CLINICAL INDICATION: Female, 59 years old with history of SOB; TECHNIQUE: XR chest 1V portable Frontal view of the chest. FINDINGS: Lungs/Pleura: Blunting of the left costophrenic angle. There is no evidence of right pleural effusio n, focal consolidation, or pneumothorax Pulmonary vascularity: Pulmonary vascular congestion. Heart/mediastinum: Cardiomediastinal silhouette is unremarkable. Musculoskeletal: No acute osseous pathology. IMPRESSION: Enlarging left pleural effusion with pulmonary edema. [facility], , 09/06/2024 4:07 PM
[2024-09-06] MEDS ORDERED: NALOXONE 0.4 MG/ML 1 ML VIAL IV PRN (17:34)
[2024-09-06] MEDS: METOPROLOL TARTRATE 5 MG/5 ML VIAL IVP STA (18:19)
[2024-09-06] MEDS: FUROSEMIDE 10 MG/ML 4 ML VIAL IV STA (18:19)
[2024-09-06] MEDS ORDERED: ALBUTEROL NEBULIZED 2.5 MG/3 ML INHALATION PRN (21:36)
[2024-09-06] MEDS: APIXABAN 5 MG TAB PO SCH (21:59)
[2024-09-06] MEDS: DULoxetine HCL 60 MG CAPSULE.DR PO SCH (22:00)
[2024-09-06] MEDS: METOPROLOL TARTRATE 50 MG TAB PO SCH (22:00)
[2024-09-07 06:27] LABS: Glucose,Whole Blood 123 mg/dL (70-110)
[2024-09-07 07:56] LABS: Basophils # (A) 0.06 10*3/uL (0.00-0.10); Basophils % (A) 0.5 %; Eosinophils # (A) 0.11 10*3/uL (0.04-0.35); HCT 32.7 % (37.2-46.3); HGB 10.3 g/dL (12.0-15.0); Lymphocytes # (A) 1.15 10*3/uL (0.90-5.00); MCH 28.9 pg (27.0-32.0); MCHC 31.5 g/dL (32.0-37.0); MCV 91.9 fL (80.0-97.0); Mean Platelet Volume 9.7 fL (9.5-12.2); Monocytes % (A) 6.1 %; Neutrophils # (A) 9.26 10*3/uL (1.80-7.70); Neutrophils % (A) 80.8 %; Platelet Count 282 10*3/uL (140-440); RBC 3.56 10*6/uL (4.10-5.20); RDW 17.3 % (11.5-14.5); WBC 11.46 10*3/uL (4.50-10.00)
[2024-09-07 08:06] LABS: ALT 32 U/L (4-34); AST 19 U/L (14-36); African American GFR (CKD) >90 (>60 ml/min/1.73 sqM); Albumin 3.2 g/dL (3.5-5.0); Alkaline Phosphatase 110 U/L (38-126); Anion Gap 9 mmol/L; Blood Urea Nitrogen 17 mg/dL (7-17); Calcium 9.8 mg/dL (8.4-10.2); Carbon Dioxide 27 mmol/L (22-30); Chloride 102 mmol/L (98-107); Glucose 115 mg/dL (74-99); Non-African American GFR(CKD) >90 (>60 ml/min/1.73 sqM); Potassium 4.2 mmol/L (3.5-5.1); Sodium 138 mmol/L (137-145); Total Protein 5.8 g/dL (6.3-8.2)
[2024-09-07 10:55] LABS: Glucose,Whole Blood 124 mg/dL (70-110)
--- NOTE | 2024-09-07 11:46 | P.HPIM ---
History of Present Illness Patient is a 59-year-old female was recently discharged from hospital after she underwent cardiac evaluation patient had a normal ejection fraction from the echocardiogram that was obtained recently. Patient came in with complaints of shortness of breath orthopnea. Patient has pulm edema on the chest x-ray BNP is elevated to 6700 patient was in heart atrial fibrillation with rapid unclear rate was receiving 15 mg of Cardizem IV. Patient takes 50 mg twice a day of metoprolol patient converted to sinus rhythm last night. Patient is still on 4 L of oxygen. REVIEW OF SYSTEMS: All other systems are negative except those mentioned in the HPI PHYSICAL EXAMINATION: GENERAL: The patient is alert and oriented x3, not in any acute distress. Obese HEENT: Pupils are round and equally reacting to light. EOMI. No scleral icterus. No conjunctival pallor. Normocephalic, atraumatic. No pharyngeal erythema. No thyromegaly. CARDIOVASCULAR: S1 and S2 present. No murmurs, rubs, or gallops. PULMONARY: Chest is clear to auscultation, no wheezing or crackles. ABDOMEN: Soft, nontender, nondistended, normoactive bowel sounds. No palpable organomegaly. MUSCULOSKELETAL: No joint swelling or deformity. EXTREMITIES: No cyanosis, clubbing, patient does have some pedal edema NEUROLOGICAL: Gross neurological examination did not reveal any focal deficits. SKIN: No rashes. Assessment and plan -Atrial fibrillation with rapid ventricular rate patient is presently sinus rhythm continue with metoprolol probably will need an increased dose of the metoprolol will leave addition to cardiology cardiology will evaluate the patient. Patient was resumed on anticoagulation - Pulmonary edema probably secondary to atrial fibrillation patient had a normal systolic function in the past will order Lasix as patient is still requiring ox ygen patient received 1 dose of Lasix yesterday. Monitor I's and O's - History of DVT/PE in the past patient is on anticoagulation at this time - Paroxysmal atrial fibrillation on anticoagulation as mentioned above metoprolol as mentioned above - Hyperlipidemia - Hypertension -Obesity: Patient will benefit from outpatient sleep study DVT prophylaxis: On anticoagulation as mentioned above Past Medical History Past Medical History: Deep Vein Thrombosis (DVT), GERD/Reflux, Hyperlipidemia, Hypertension, Osteoarthritis (OA), Pulmonary Embolus (PE) Additional Past Medical History / Comment(s): DVT years ago after taking control, achalasia, restrictive lung disease. Hx Pneumonia September 2017. October 2017 DVT and PE with poor liver and kidney function at that time. Bilateral leg swelling at times, wears compression stockings to work, border line diabetic. History of Any Multi-Drug Resistant Organisms: None Reported Past Surgical History: Ablation, Cholecystectomy, Heart Catheterization, Orthopedic Surgery Additional Past Surgical History / Comment(s): BILAT CTR,STATES ESOPHAGUS WAS TOO TIGHT AND THEY REMOVED HER RIB AND DID HILAR PROCEDURE, eye surgery as a baby. COLONOSCOPY/EGD Past Anesthesia/Blood Transfusion Reactions: No Reported Reaction Past Psychological History: Anxiety, Depression Smoking Status: Former smoker Past Alcohol Use History: Occasional Additional Past Alcohol Use History / Comment(s): QUIT SMOKING 2012, SMOKED 2 PPD. SMOKED FOR OVER 30 YEARS. Past Drug Use History: None Reported - Past Family History Father Family Medical History: Cancer Additional Family Medical History / Comment(s): PROSTATE CANCER Sister(s) Family Medical History: Cancer Additional Family Medical History / Comment(s): Skin cancer. Medications and Allergies Home Medications Medication Instructions Recorded Confirmed Type Apixaban [Eliquis] 5 mg PO BID #60 tab 11/17/17 09/06/24 Rx DULoxetine HCL [Cymbalta] 60 mg PO BID 03/02/21 09/06/24 History Albuterol Nebulized [Ventolin 2.5 mg INHALATION RT-TID PRN 09/02/24 09/06/24 History Nebulized] Atorvastatin [Lipitor] 20 mg PO HS 09/02/24 09/06/24 History Empagliflozin [Jardiance] 10 mg PO DAILY 09/02/24 09/06/24 History Metoprolol Tartrate [Lopressor] 50 mg PO BID #60 tab 09/03/24 09/06/24 Rx Allergies Allergy/AdvReac Type Severity Reaction Status Date / Time No Known Allergies Allergy Verified 09/06/24 17:36 Physical Exam Vitals: Vital Signs Temp Pulse Pulse Resp BP BP Pulse Ox 09/07/24 11:42 95 09/07/24 08:08 98.1 F 88 20 153/83 95 09/07/24 03:52 98.3 F 91 20 149/71 95 09/06/24 23:31 98.5 F 112 H 18 134/76 95 09/06/24 20:53 99.3 F 150 H 20 132/81 95 09/06/24 18:18 128 H 20 124/102 98 09/06/24 17:30 155 H 20 130/98 97 09/06/24 17:00 142 H 20 132/100 97 09/06/24 16:00 123 H 20 122/84 95 09/06/24 15:55 126 H 20 124/86 96 09/06/24 15:35 158 H 20 141/87 95 09/06/24 14:18 98.2 F 154 H 20 131/86 95 Intake and Output 09/06/24 09/07/24 09/07/24 22:59 06:59 14:59 Intake Total 12.250 242.5 180 Output Total 800 650 Balance -787.750 242.5 -470 Intake: IV 120 Diltiazem 125 mg In 120 Dextrose 5% in Water 100 ml @ 5 MG/HR 5 mls/hr IV .Q24H [facility] Rx#:[id number] Intake, IV Titration 12.250 122.5 Amount Diltiazem 125 mg In 12.250 122.5 Dextrose 5% in Water 100 ml @ 5 MG/HR 5 mls/hr IV .Q24H [facility] Rx#:[id number] Oral 180 Output: Urine 800 650 Other: Voiding Method External Catheter Weight 142.882 kg 147.5 kg Results CBC & Chem 7: 09/07/24 07:29 09/07/24 07:29 Labs: Abnormal Lab Results - Last 24 Hours (Table) 09/06/24 09/06/24 09/06/24 Range/Units 15:25 15:25 15:25 WBC 11.50 H (4.50-10.00) 10*3/uL RBC 3.58 L (4.10-5.20) 10*6/uL Hgb 10.5 L (12.0-15.0) g/dL Hct 32.3 L (37.2-46.3) % MCHC (32.0-37.0) g/dL Immature Gran # 0.18 H (0.00-0.04) 10*3/uL Neutrophils # 8.92 H (1.80-7.70) 10*3/uL Glucose 111 H (74-99) mg/dL POC Glucose (mg/dL) (70-110) mg/dL ALT 36 H (4-34) U/L Troponin I 0.624 H* (0.000-0.034) ng/mL Total Protein 6.0 L (6.3-8.2) g/dL Albumin 3.4 L (3.5-5.0) g/dL 09/06/24 09/06/24 09/07/24 Range/Units 18:28 23:39 06:26 WBC (4.50-10.00) 10*3/uL RBC (4.10-5.20) 10*6/uL Hgb (12.0-15.0) g/dL Hct (37.2-46.3) % MCHC (32.0-37.0) g/dL Immature Gran # (0.00-0.04) 10*3/uL Neutrophils # (1.80-7.70) 10*3/uL Glucose (74-99) mg/dL POC Glucose (mg/dL) 123 H (70-110) mg/dL ALT (4-34) U/L Troponin I 0.740 H* 0.650 H* (0.000-0.034) ng/mL Total Protein (6.3-8.2) g/dL Albumin (3.5-5.0) g/dL 09/07/24 09/07/24 09/07/24 Range/Units 07:29 07:29 10:54 WBC 11.46 H (4.50-10.00) 10*3/uL RBC 3.56 L (4.10-5.20) 10*6/uL Hgb 10.3 L (12.0-15.0) g/dL Hct 32.7 L (37.2-46.3) % MCHC 31.5 L (32.0-37.0) g/dL Immature Gran # 0.18 H (0.00-0.04) 10*3/uL Neutrophils # 9.26 H (1.80-7.70) 10*3/uL Glucose 115 H (74-99) mg/dL POC Glucose (mg/dL) 124 H (70-110) mg/dL ALT (4-34) U/L Troponin I (0.000-0.034) ng/mL Total Protein 5.8 L (6.3-8.2) g/dL Albumin 3.2 L (3.5-5.0) g/dL Thrombosis Risk Factor Assmnt - Choose All That Apply Any of the Below Risk Factors Present?: Yes Each Factor Represents 1 point: Age 41-60 years, Obesity (BMI >25) Other Risk Factors: Yes Each Risk Factor Represents 3 Points: History of DVT/PE Thrombosis Risk Factor Assessment Total Risk Factor Score: 5 Thrombosis Risk Factor Assessment Level: High Risk
[2024-09-07] MEDS: FUROSEMIDE 10 MG/ML 4 ML VIAL IV SCH (11:55)
[2024-09-07 16:24] LABS: Glucose,Whole Blood 200 mg/dL (70-110)
--- NOTE | 2024-09-07 16:42 | P.CRDCN ---
History of Present Illness Consult date: 09/07/24 History of present illness: HISTORY OF PRESENTING ILLNESS: Patient is known to Dr. Zhang. Past medical history of hypertension obesity dyslipidemia type 2 diabetes DVT and PE on anticoagulation with Eliquis. She was admitted 1 week ago for atrial fibrillation with RVR. On last admission patient underwent PVI and left atrial septal ablation. This time she presented to the hospital because of symptoms of palpitations and generalized weakness and fatigue at home. On admission she was noticed to have atrial flutter with heart rate of 155 bpm. She was given IV Cardizem which converted her out of atrial flutter. Repeat EKG shows sinus rhythm heart rate 79, no significant ST-T wave changes concerning for ischemia. Admission labs shows hemoglobin 10 BUN 17 creatinine 0.5, initial troponin was 0.65 which was most likely elevated because of recent ablation procedure Admission chest x-ray shows mild increase in tissue markings with small left- sided pleural effusion Imaging: Echo from 08/2024 shows EF 55%, no major valve dysfunction, no significant regional wall motion normality Home medications Lipitor 20 losartan 100 Eliquis 5 twice daily, Jardiance 10 REVIEW OF SYSTEMS: 14 point review of system is negative except what is mentioned above in HPI. PHYSICAL EXAMINATION: Neck: Brisk carotid upstroke, no jugular venous distention. Lungs: Poor inspiratory effort, mild crackles audible in bilateral bases Heart: Regular rate and rhythm, S1-S2, , no murmur or rub. Abdomen: Soft nontender, positive bowel sounds. Extremities: Minimal lower extremity edema Neuro: Alert, oritented, no focal deficits. Detailed neuro exam was not performed. ASSESSMENT: # New onset atrial flutter with RVR, currently in sinus rhythm # Mild HFpEF exacerbation # Status post atrial fibrillation 08/2024, with PVI ablation and left atrial septal ablation # Elevated troponin most likely because of recent ablation procedure, less likely ACS # Small left pleural effusion # Morbid obesity # Suspect sleep apnea PLAN: Patient will need atrial flutter ablation on outpatient basis Continue IV Lasix today twice daily. Consider transition to p.o. Lasix tomorrow Continue Eliquis 5 twice daily, Lipitor 20 mg daily Start metoprolol 50 mg twice daily, Jardiance 10 mg daily, losartan 50 mg daily Recommend outpatient sleep study If blood pressure or heart rates are controlled and no further atrial flutter, consider discharging tomorrow with recommended outpatient follow-up Ck Villafana MD, FACC, RPVI Thank you for allowing [facility] to participate in this patient's care. Feel free to reach out in case of any followup questions. Past Medical History Past Medical History: Deep Vein Thrombosis (DVT), GERD/Reflux, Hyperlipidemia, Hypertension, Osteoarthritis (OA), Pulmonary Embolus (PE) Additional Past Medical History / Comment(s): DVT years ago after taking control, achalasia, restrictive lung disease. Hx Pneumonia September 2017. October 2017 DVT and PE with poor liver and kidney function at that time. Bilateral leg swelling at times, wears compression stockings to work, border line diabetic. History of Any Multi-Drug Resistant Organisms: None Reported Past Surgical History: Ablation, Cholecystectomy, Heart Catheterization, Orthopedic Surgery Additional Past Surgical History / Comment(s): BILAT CTR,STATES ESOPHAGUS WAS TOO TIGHT AND THEY REMOVED HER RIB AND DID HILAR PROCEDURE, eye surgery as a baby. COLONOSCOPY/EGD Past Anesthesia/Blood Transfusion Reactions: No Reported Reaction Past Psychological History: Anxiety, Depression Smoking Status: Former smoker Past Alcohol Use History: Occasional Additional Past Alcohol Use History / Comment(s): QUIT SMOKING 2012, SMOKED 2 PPD. SMOKED FOR OVER 30 YEARS. Past Drug Use History: None Reported - Past Family History Father Family Medical History: Cancer Additional Family Medical History / Comment(s): PROSTATE CANCER Sister(s) Family Medical History: Cancer Additional Family Medical History / Comment(s): Skin cancer. Medications and Allergies Home Medications Medication Instructions Recorded Confirmed Type Apixaban [Eliquis] 5 mg PO BID #60 tab 11/17/17 09/06/24 Rx DULoxetine HCL [Cymbalta] 60 mg PO BID 03/02/21 09/06/24 History Albuterol Nebulized [Ventolin 2.5 mg INHALATION RT-TID PRN 09/02/24 09/06/24 History Nebulized] Atorvastatin [Lipitor] 20 mg PO HS 09/02/24 09/06/24 History Empagliflozin [Jardiance] 10 mg PO DAILY 09/02/24 09/06/24 History Metoprolol Tartrate [Lopressor] 50 mg PO BID #60 tab 09/03/24 09/06/24 Rx Allergies Allergy/AdvReac Type Severity Reaction Status Date / Time No Known Allergies Allergy Verified 09/06/24 17:36 Physical Exam Vitals: Vital Signs Temp Pulse Pulse Resp BP BP Pulse Ox 09/07/24 15:27 98.3 F 77 20 151/81 96 09/07/24 13:32 82 09/07/24 11:51 98.3 F 82 22 141/82 96 09/07/24 11:42 95 09/07/24 08:08 98.1 F 88 20 153/83 95 09/07/24 03:52 98.3 F 91 20 149/71 95 09/06/24 23:31 98.5 F 112 H 18 134/76 95 09/06/24 20:53 99.3 F 150 H 20 132/81 95 09/06/24 18:18 128 H 20 124/102 98 09/06/24 17:30 155 H 20 130/98 97 09/06/24 17:00 142 H 20 132/100 97 Intake and Output 09/07/24 09/07/24 09/07/24 06:59 14:59 22:59 Intake Total 242.5 180 Output Total 650 550 Balance 242.5 -470 -550 Intake: IV 120 Diltiazem 125 mg In 120 Dextrose 5% in Water 100 ml @ 5 MG/HR 5 mls/hr IV .Q24H [facility] Rx#:[id number] Intake, IV Titration 122.5 Amount Diltiazem 125 mg In 122.5 Dextrose 5% in Water 100 ml @ 5 MG/HR 5 mls/hr IV .Q24H [facility] Rx#:[id number] Oral 180 Output: Urine 650 550 Other: Voiding Method External Catheter # Voids 1 Weight 147.5 kg Results 09/07/24 07:29 09/07/24 07:29 Cardiac Enzymes 09/06/24 09/06/24 09/07/24 Range/Units 18:28 23:39 07:29 AST 19 (14-36) U/L Troponin I 0.740 H* 0.650 H* (0.000-0.034) ng/mL CBC 09/07/24 Range/Units 07:29 WBC 11.46 H (4.50-10.00) 10*3/uL RBC 3.56 L (4.10-5.20) 10*6/uL Hgb 10.3 L (12.0-15.0) g/dL Hct 32.7 L (37.2-46.3) % Plt Count 282 (140-440) 10*3/uL Comprehensive Metabolic Panel 09/07/24 Range/Units 07:29 Sodium 138 (137-145) mmol/L Potassium 4.2 (3.5-5.1) mmol/L Chloride 102 (98-107) mmol/L Carbon Dioxide 27 (22-30) mmol/L BUN 17 (7-17) mg/dL Creatinine 0.57 (0.52-1.04) mg/dL Glucose 115 H (74-99) mg/dL Calcium 9.8 (8.4-10.2) mg/dL AST 19 (14-36) U/L ALT 32 (4-34) U/L Alkaline Phosphatase 110 (38-126) U/L Total Protein 5.8 L (6.3-8.2) g/dL Albumin 3.2 L (3.5-5.0) g/dL Current Medications Generic Name Dose Route Start Last Admin Trade Name Freq PRN Reason Stop Dose Admin Albuterol Sulfate 2.5 mg 09/06/24 21:36 Albuterol Nebulized 2.5 Mg/3 Ml INHALATION RT-TID PRN Shortness Of Breath Apixaban 5 mg 09/06/24 21:45 09/07/24 08:16 Apixaban 5 Mg Tab PO 5 mg BID [facility] Administration Protocol Atorvastatin Calcium 20 mg 09/07/24 21:00 Atorvastatin 20 Mg Tab PO HS [facility] Dapagliflozin 10 mg 09/07/24 16:45 Dapagliflozin Propanediol 10 Mg Tablet PO DAILY [facility] Duloxetine HCl 60 mg 09/06/24 21:45 09/07/24 08:16 Duloxetine Hcl 60 Mg Capsule.Dr PO 60 mg BID [facility] Administration Furosemide 40 mg 09/07/24 11:45 09/07/24 11:55 Furosemide 10 Mg/Ml 4 Ml Vial IV 40 mg Q12HR [facility] Administration Losartan Potassium 50 mg 09/07/24 16:45 Losartan 50 Mg Tab PO DAILY [facility] Metoprolol Tartrate 50 mg 09/06/24 21:45 09/07/24 08:16 Metoprolol Tartrate 50 Mg Tab PO 50 mg BID [facility] Administration Naloxone HCl 0.2 mg 09/06/24 17:34 Naloxone 0.4 Mg/Ml 1 Ml Vial IV Q2M PRN Opioid Reversal Intake and Output 09/07/24 09/07/24 09/07/24 06:59 14:59 22:59 Intake Total 242.5 180 Output Total 650 550 Balance 242.5 -470 -550 Intake: IV 120 Diltiazem 125 mg In 120 Dextrose 5% in Water 100 ml @ 5 MG/HR 5 mls/hr IV .Q24H [facility] Rx#:[id number] Intake, IV Titration 122.5 Amount Diltiazem 125 mg In 122.5 Dextrose 5% in Water 100 ml @ 5 MG/HR 5 mls/hr IV .Q24H [facility] Rx#:[id number] Oral 180 Output: Urine 650 550 Other: Voiding Method External Catheter # Voids 1 Weight 147.5 kg 09/07/24 07:29 09/07/24 07:29
[2024-09-07] MEDS: DAPAGLIFLOZIN PROPANEDIOL 10 MG TABLET PO SCH (16:53)
[2024-09-07] MEDS: LOSARTAN 50 MG TAB PO SCH (16:53)
[2024-09-07] MEDS: ATORVASTATIN 20 MG TAB PO SCH (20:30)
[2024-09-07 20:36] LABS: Glucose,Whole Blood 132 mg/dL (70-110)
[2024-09-08 05:58] LABS: Glucose,Whole Blood 119 mg/dL (70-110)
[2024-09-08 07:15] LABS: African American GFR (CKD) >90 (>60 ml/min/1.73 sqM); Anion Gap 9 mmol/L; Blood Urea Nitrogen 25 mg/dL (7-17); Calcium 10.1 mg/dL (8.4-10.2); Carbon Dioxide 30 mmol/L (22-30); Chloride 99 mmol/L (98-107); Glucose 102 mg/dL (74-99); Non-African American GFR(CKD) >90 (>60 ml/min/1.73 sqM); Sodium 138 mmol/L (137-145)
[2024-09-08 08:25] VITALS: BP 130/74; PULSE 82; RESP 16; TEMP 97.9
--- NOTE | 2024-09-08 10:32 | P.PN ---
Subjective HISTORY OF PRESENT ILLNESS: Patient is known to Dr. Zhang. Past medical history of hypertension obesity dyslipidemia type 2 diabetes DVT and PE on anticoagulation with Eliquis. She was admitted 1 week ago for atrial fibrillation with RVR. On last admission patient underwent PVI and left atrial septal ablation. This time she presented to the hospital because of symptoms of palpitations and generalized weakness and fatigue at home. On admission she was noticed to have atrial flutter with heart rate of 155 bpm. She was given IV Cardizem which converted her out of atrial flutter. Repeat EKG shows sinus rhythm heart rate 79, no significant ST-T wave changes concerning for ischemia. Admission labs shows hemoglobin 10 BUN 17 creatinine 0.5, initial troponin was 0.65 which was most likely elevated because of recent ablation procedure Admission chest x-ray shows mild increase in tissue markings with small left- sided pleural effusion Imaging: Echo from 08/2024 shows EF 55%, no major valve dysfunction, no significant regional wall motion normality Home medications Lipitor 20 losartan 100 Eliquis 5 twice daily, Jardiance 10 09/08/2024 Patient examined this morning at the bedside. Patient currently denies chest pain or pressure. She denies shortness of breath. Telemetry reveals sinus mechanism. Vital signs are stable. PHYSICAL EXAM: VITAL SIGNS: Reviewed. GENERAL: Well-developed in no acute distress. NECK: Supple. No JVD or thyromegaly LUNGS: Respirations even and unlabored. Lungs essentially clear to auscultation bilaterally, diminished. HEART: Regular rate and rhythm. S1 and S2 heard. EXTREMITIES: Normal range of motion. No clubbing or cyanosis. Peripheral pulses intact. No lower extremity edema ASSESSMENT: New onset typical atrial flutter with RVR, currently maintaining sinus mechanism Acute heart failure with preserved EF, currently euvolemic Status post atrial fibrillation ablation, 09/02/2024 Elevated troponin, flat, likely type II CO secondary to oxygen supply and demand mismatch along with recent cardiac ablation, no evidence of acute coronary syndrome Small left pleural effusion Suspected sleep apnea Morbid obesity: BMI 45.3 PLAN: Continue current cardiac medications including Eliquis, Lipitor, Farxiga, losartan, and metoprolol Discontinue IV Lasix. Begin oral Lasix 40 mg twice a day Patient is stable for discharge home today from a cardiac standpoint Patient to follow-up postdischarge in the office in 1 to 2 weeks Nurse practitioner note has been reviewed by physician. Signing provider agrees with the documented findings, assessment, and plan of care documented by [employer] as a scribe. Objective - Vital Signs Vital signs: Vital Signs Temp 97.9 F 09/08/24 08:00 Pulse 82 09/08/24 08:00 Resp 16 09/08/24 08:00 BP 130/74 09/08/24 08:00 Pulse Ox 93 L 09/08/24 08:00 FiO2 Intake & Output 09/07/24 09/08/24 09/08/24 18:59 06:59 18:59 Intake Total 300 240 Output Total 1200 1600 Balance -900 -1600 240 Weight 143.3 kg Intake: Oral 300 240 Output: Urine 1200 1600 Other: Voiding Method External Catheter External Catheter # Voids 1 - Labs CBC & Chem 7: 09/07/24 07:29 09/08/24 06:04 Labs: Abnormal Lab Results - Last 24 Hours (Table) 09/07/24 09/07/24 09/07/24 Range/Units 10:54 16:23 20:34 BUN (7-17) mg/dL Glucose (74-99) mg/dL POC Glucose (mg/dL) 124 H 200 H 132 H (70-110) mg/dL 09/08/24 09/08/24 Range/Units 05:56 06:04 BUN 25 H (7-17) mg/dL Glucose 102 H (74-99) mg/dL POC Glucose (mg/dL) 119 H (70-110) mg/dL
[2024-09-08 11:36] LABS: Glucose,Whole Blood 136 mg/dL (70-110)
--- NOTE | 2024-09-08 11:50 | P.DS ---
Providers Date of admission: 09/06/24 17:34 Attending physician: Suman Riley MD Consults: 09/06/24 18:02 Consult Physician Urgent Consulting Provider: Ck Villafana Consult Reason/Comments: Atrial flutter with RVR, CHF Do you want consulting provider notified?: Already Contacted Primary care physician: [facility] Course: Patient is a 59-year-old female was recently discharged from hospital after she underwent cardiac evaluation patient had a normal ejection fraction from the echocardiogram that was obtained recently. Patient came in with complaints of shortness of breath orthopnea. Patient has pulm edema on the chest x-ray BNP is elevated to 6700 patient was in heart atrial fibrillation with rapid unclear rate was receiving 15 mg of Cardizem IV. Patient takes 50 mg twice a day of metoprolol patient converted to sinus rhythm last night. Patient is still on 4 L of oxygen. 09/08/2024 Patient is clinically doing well patient is sensitive at this time patient is euvolemic was cleared for discharge from cardiology perspective patient will discharge today. Patient will be discharged on 40 twice a day of Lasix along with losartan for heart failure. Patient needs to see PCP before she can return to work which is on Sunday. PHYSICAL EXAMINATION: GENERAL: The patient is alert and oriented x3, not in any acute distress. Obese HEENT: Pupils are round and equally reacting to light. EOMI. No scleral icterus. No conjunctival pallor. Normocephalic, atraumatic. No pharyngeal erythema. No thyromegaly. CARDIOVASCULAR: S1 and S2 present. No murmurs, rubs, or gallops. PULMONARY: Chest is clear to auscultation, no wheezing or crackles. ABDOMEN: Soft, nontender, nondistended, normoactive bowel sounds. No palpable organomegaly. MUSCULOSKELETAL: No joint swelling or deformity. EXTREMITIES: No cyanosis, clubbing, patient does have some pedal edema NEUROLOGICAL: Gross neurological examination did not reveal any focal deficits. SKIN: No rashes. Assessment and plan -Atrial fibrillation with rapid ventricular rate patient is presently sinus rhythm continue with metoprolol. Patient is in sinus rhythm will be discharged today -Congestive heart failure chronic diastolic function with acute exacerbation euvolemic at this time - History of DVT/PE in the past patient is on anticoagulation at this time - Paroxysmal atrial fibrillation on anticoagulation as mentioned above metoprolol as mentioned above - Hyperlipidemia - Hypertension -Obesity: Patient will benefit from outpatient sleep study Patient Condition at Discharge: Stable Plan - Discharge Summary Discharge Rx Participant: Yes New Discharge Prescriptions: New Losartan [Cozaar] 50 mg PO DAILY #30 tab Furosemide [Lasix] 40 mg PO BID@0900,1600 #60 tab Continue Apixaban [Eliquis] 5 mg PO BID #60 tab DULoxetine HCL [Cymbalta] 60 mg PO BID Atorvastatin [Lipitor] 20 mg PO HS Albuterol Nebulized [Ventolin Nebulized] 2.5 mg INHALATION RT-TID PRN PRN Reason: Shortness Of Breath Empagliflozin [Jardiance] 10 mg PO DAILY Metoprolol Tartrate [Lopressor] 50 mg PO BID #60 tab Discharge Medication List Apixaban [Eliquis] 5 mg PO BID #60 tab 11/17/17 [Rx] DULoxetine HCL [Cymbalta] 60 mg PO BID 03/02/21 [History] Albuterol Nebulized [Ventolin Nebulized] 2.5 mg INHALATION RT-TID PRN 09/02/24 [History] Atorvastatin [Lipitor] 20 mg PO HS 09/02/24 [History] Empagliflozin [Jardiance] 10 mg PO DAILY 09/02/24 [History] Metoprolol Tartrate [Lopressor] 50 mg PO BID #60 tab 09/03/24 [Rx] Furosemide [Lasix] 40 mg PO BID@0900,1600 #60 tab 09/08/24 [Rx] Losartan [Cozaar] 50 mg PO DAILY #30 tab 09/08/24 [Rx] Follow up Appointment(s)/Referral(s): Juanito Abreu DO [Primary Care Provider] - 1-2 Days Discharge Disposition: HOME SELF-CARE
[2024-09-08] MEDS ORDERED: FUROSEMIDE 40 MG TAB PO SCH (16:00)
--- NOTE | 2024-09-10 16:39 | CDI ---
Documentation Clarification Form Date: 09/10/2024 04:24:30 PM From: Faye Collado Phone: Admit Date: 09/06/2024 05:34:00 PM Patient Name: Mercedes Bone Visit Number: [id number] Discharge Date: 09/08/2024 12:50:00 PM ATTENTION: The Clinical Documentation Specialists (CDI) and [facility] Coding Staff appreciate your assistance in clarifying documentation. Please respond to the clarification below the line at the bottom and electronically sign. The CDI & [facility] Coding staff will review the response and follow-up if needed. Please note: Queries are made part of the Legal Health Record. If you have any questions, please contact the author of this message via ITS. Doctor/Provider: Richard Kendrick Type II OK is documented in PN 09/08/2024 which may lack sufficient clinical evidence/support in the medical record. Additional clarification is requested. Patient history/risk factors; Patient presents to the ED with her son forevaluation. Patient was discharged from the hospital 3 days ago after being admitted and undergoing a cardiac ablationprocedure for heratrial fibrillation. Patient states that since she has been home, she has noticeddyspneawith exertion. She states that she becomesdyspneicwhile just walking to the bathroom. Clinical indicators: Consult on 09/07 - Elevated troponinmost likely because of recentablationprocedure,less likelyACS Pn on 09/08 -Elevated troponin, flat,likelytype II MIsecondary to oxygen supply and demand mismatch along with recent cardiacablation,no evidence ofacute coronary syndrome DS on 09/08 - Patient came in with complaints of shortness of breathorthopnea. Patient haspulm edemaon thechest x-rayBNP is elevatedto 6700 patient was in heartatrial fibrillationwithrapidunclear rate was receiving 15 mg ofCardizem IV. Patient takes 50 mg twice a day of metoprolol patientconvertedto sinusrhythmlast night. Patient is still on 4 L of oxygen. Troponin on 09/06- 0 . 624 at 15:25 ,0. 740 at 18. 28 , 0. 650 at 650 EKG - EKGshows sinusrhythmheart rate 79,no significantST-T wave changes concerning forischemia. Echo - Echo from 08/2024 shows EF 55%,nomajor valvedysfunction, no significant regional wall motion normality Treatment: Patient will needatrial flutter ablationon outpatient basis Continue IV Lasix today twice daily. Consider transition to p. o. Lasix tomorrow Continue Eliquis 5 twice daily, Lipitor 20 mg daily Start metoprolol 50 mg twice daily, Jardiance 10 mg daily, losartan 50 mg daily After work up and study, please which diagnosis is most appropriate? [ x] Type II OK is a valid diagnosis as evidenced by the following: ___secondary to recent cardiac ablation [ ] Type II OK ruled out [ ] Elevated troponin due to acute myocardial injury without myocardial infarction [ ] Elevated troponin due to chronic myocardial injury without myocardial infarction [ ] Other, please specify [ ] Unable to determine Reference: [employer] [place] [place] Definition of Myocardial Infraction Type II OK is indicated when an acute myocardial injury in the setting of an abnormal troponin with a rise and fall and clinical indicators suggestive of an imbalance between myocardial oxygen supply demand with acute myocardial ischemia unrelated to coronary thrombosis as evidenced by one of the following: Symptoms of myocardial ischemia New ischemic ECG changes Development of pathological Q waves Imaging evidence of new loss of viable myocardium or new regional wall motion abnormality in a pattern consistent with an ischemic etiology (Template Last Revised: April 2023) MTDD
== END 2024-09-08 12:50 | disposition home or self-care (01) | DRG 280 ==
LOC: EC 14:11 → 3SCARD 17:34
PROVIDERS: ADMIT Internal Medicine; ATTEND Internal Medicine
PROC: 3E033RZ Introduction of Antiarrhythmic into Peripheral Vein, Percutaneous Approach (ICD-10-PCS; principal; 2024-09-07)
DX: I11.0 Hypertensive heart disease with heart failure (principal); I50.33 Acute on chronic diastolic (congestive) heart failure; I21.A1 Myocardial infarction type 2; I48.3 Typical atrial flutter; J84.9 Interstitial pulmonary disease, unspecified; E66.01 Morbid (severe) obesity due to excess calories; E11.9 Type 2 diabetes mellitus without complications; Z68.42 Body mass index [BMI] 45.0-49.9, adult; I48.0 Paroxysmal atrial fibrillation; E78.5 Hyperlipidemia, unspecified; Z79.899 Other long term (current) drug therapy; Z79.01 Long term (current) use of anticoagulants; Z79.84 Long term (current) use of oral hypoglycemic drugs; Z87.891 Personal history of nicotine dependence; Z86.711 Personal history of pulmonary embolism; Z86.718 Personal history of other venous thrombosis and embolism; Z87.01 Personal history of pneumonia (recurrent)
CPT/HCPCS: 36415; 71045; 80048; 80053; 83735; 83880; 84484; 85025; 85610; 85730; 93005; 94760; 96365; 96366; 99291

== ENCOUNTER 2024-10-12 13:42 | Inpatient (IN) | payer OTHER ==
[2024-10-12 14:34] LABS: Basophils # (A) 0.06 10*3/uL (0.00-0.10); Basophils % (A) 0.6 %; Eosinophils # (A) 0.05 10*3/uL (0.04-0.35); Eosinophils % (A) 0.5 %; HCT 38.3 % (37.2-46.3); HGB 11.8 g/dL (12.0-15.0); Lymphocytes # (A) 1.20 10*3/uL (0.90-5.00); Lymphocytes % (A) 12.0 %; MCH 27.3 pg (27.0-32.0); MCHC 30.8 g/dL (32.0-37.0); MCV 88.5 fL (80.0-97.0); Monocytes # (A) 0.50 10*3/uL (0.20-1.00); Monocytes % (A) 5.0 %; Neutrophils # (A) 8.09 10*3/uL (1.80-7.70); Neutrophils % (A) 81.2 %; Platelet Count 301 10*3/uL (140-440); RBC 4.33 10*6/uL (4.10-5.20); RDW 17.5 % (11.5-14.5); WBC 9.97 10*3/uL (4.50-10.00)
[2024-10-12 14:49] LABS: INR 1.1 (<1.2); Partial Thromboplastin Time 27.7 sec (22.0-30.0); Prothrombin Time 12.1 sec (10.0-12.5)
[2024-10-12 14:50] LABS: ALT 42 U/L (4-34); AST 36 U/L (14-36); African American GFR (CKD) >90 (>60 ml/min/1.73 sqM); Albumin 3.9 g/dL (3.5-5.0); Alkaline Phosphatase 121 U/L (38-126); Anion Gap 11 mmol/L; Blood Urea Nitrogen 20 mg/dL (7-17); Calcium 10.6 mg/dL (8.4-10.2); Carbon Dioxide 24 mmol/L (22-30); Chloride 102 mmol/L (98-107); Glucose 139 mg/dL (74-99); Non-African American GFR(CKD) >90 (>60 ml/min/1.73 sqM); Potassium 4.4 mmol/L (3.5-5.1); Sodium 137 mmol/L (137-145); Total Protein 7.1 g/dL (6.3-8.2)
[2024-10-12 14:57] LABS: NT-Pro-B-Type Natriuretic Pept 418 pg/mL
--- NOTE | 2024-10-12 15:08 | ED ---
SOB HPI - General Source: patient, RN notes reviewed, old records reviewed Mode of arrival: ambulatory Limitations: no limitations - History of Present Illness MD Complaint: shortness of breath, cough, chest pain, anxiety (Abdominal pain) -: days(s) Consistency: constant Improves With: nothing Worsens With: nothing Context: anxiety, recent illness Associated Symptoms: chest pain, nausea/vomiting Treatments Prior to Arrival: none <Gregorio Camarillo - Last Filed: 10/13/24 23:50> - General Source: patient Mode of arrival: ambulatory Limitations: no limitations <Layla Mcmahan - Last Filed: 10/14/24 22:36> - General Chief Complaint: Shortness of Breath Stated Complaint: BHUMIKA, AFIB Time Seen by Provider: 10/12/24 13:50 - History of Present Illness Initial Comments: This is a 59 female to ER with multiple complaints chest pain abdominal pain with recent diagnosis of UTI (Gregorio Camarillo) 59-year-old female past medical history of A-fib, DVT on anticoagulation, congestive heart failure who presents to the emergency department with 2 comp laints. Patient reports to lower abdominal pain as well as shortness of breath. States that she is extremely short of breath, especially when she walks across a room. Patient does have a history of DVT but states she is taken all of her anticoagulation as it is instructed without any missed doses. She denies fevers or chills. Does admit to lower extremity swelling. Patient also reports to lo wer abdominal pain with urinary symptoms. Patient was seen in the emergency department on September 30 and diagnosed with a urinary tract infection. She did take the antibiotic as they are instructed however continues to have pain. No history of kidney stones. No other alleviating, precipitating or modifying factors (Layla Mcmahan) - Related Data Home Medications Medication Instructions Recorded Confirmed DULoxetine HCL [Cymbalta] 60 mg PO BID 03/02/21 10/12/24 Albuterol Nebulized [Ventolin 2.5 mg INHALATION RT-TID PRN 09/02/24 10/12/24 Nebulized] Atorvastatin [Lipitor] 20 mg PO DAILY 09/02/24 10/12/24 Furosemide [Lasix] 20 mg PO DAILY 10/12/24 10/12/24 Previous Rx's Medication Instructions Recorded Apixaban [Eliquis] 5 mg PO BID #60 tab 11/17/17 Metoprolol Tartrate [Lopressor] 50 mg PO BID #60 tab 09/03/24 Losartan [Cozaar] 50 mg PO DAILY #30 tab 09/08/24 Allergies Allergy/AdvReac Type Severity Reaction Status Date / Time No Known Allergies Allergy Verified 10/12/24 19:27 Review of Systems ROS Other: All systems not noted in ROS Statement are negative. <Gregorio Camarillo - Last Filed: 10/13/24 23:50> ROS Other: All systems not noted in ROS Statement are negative. <Layla Mcmahan - Last Filed: 10/14/24 22:36> ROS Statement: Those systems with pertinent positive or pertinent negative responses have been documented in the HPI. Past Medical History Past Medical History: Atrial Fibrillation, Heart Failure, Deep Vein Thrombosis (DVT), GERD/Reflux, Hyperlipidemia, Hypertension, Osteoarthritis (OA), Pulmonary Embolus (PE) Additional Past Medical History / Comment(s): DVT years ago after taking control, achalasia, restrictive lung disease. Hx Pneumonia September 2017. October 2017 DVT and PE with poor liver and kidney function at that time. Bilateral leg swelling at times, wears compression stockings to work, border line diabetic. History of Any Multi-Drug Resistant Organisms: None Reported Past Surgical History: Ablation, Cholecystectomy, Heart Catheterization, Orthopedic Surgery Additional Past Surgical History / Comment(s): BILAT CTR,STATES ESOPHAGUS WAS TOO TIGHT AND THEY REMOVED HER RIB AND DID HILAR PROCEDURE, eye surgery as a baby. COLONOSCOPY/EGD Past Anesthesia/Blood Transfusion Reactions: No Reported Reaction Past Psychological History: Anxiety, Depression Smoking Status: Former smoker Past Alcohol Use History: Occasional Past Drug Use History: None Reported - Past Family History Father Family Medical History: Cancer Additional Family Medical History / Comment(s): PROSTATE CANCER Sister(s) Family Medical History: Cancer Additional Family Medical History / Comment(s): Skin cancer. <Layla Mcmahan - Last Filed: 10/14/24 22:36> General Exam General appearance: alert, in no apparent distress Head exam: Present: atraumatic, normocephalic, normal inspection Eye exam: Present: normal appearance, PERRL, EOMI. Absent: scleral icterus, conjunctival injection, periorbital swelling ENT exam: Present: normal exam, mucous membranes moist Neck exam: Present: normal inspection. Absent: tenderness, meningismus, lymphadenopathy Respiratory exam: Present: normal lung sounds bilaterally. Absent: respiratory distress, wheezes, rales, rhonchi, stridor Cardiovascular Exam: Present: regular rate, normal rhythm, normal heart sounds. Absent: systolic murmur, diastolic murmur, rubs, gallop, clicks GI/Abdominal exam: Present: soft, normal bowel sounds. Absent: distended, tenderness, guarding, rebound, rigid Extremities exam: Present: normal inspection, full ROM, normal capillary refill. Absent: tenderness, pedal edema, joint swelling, calf tenderness Back exam: Present: normal inspection Neurological exam: Present: alert, oriented X3, CN II-XII intact Psychiatric exam: Present: normal affect, normal mood Skin exam: Present: warm, dry, intact, normal color. Absent: rash <Gregorio Camarillo - Last Filed: 10/13/24 23:50> Limitations: no limitations General appearance: alert, in no apparent distress Head exam: Present: atraumatic, normocephalic, normal inspection Eye exam: Present: normal appearance, PERRL, EOMI. Absent: scleral icterus, conjunctival injection, periorbital swelling ENT exam: Present: normal exam, mucous membranes moist Neck exam: Present: normal inspection. Absent: tenderness, meningismus, lymphadenopathy Respiratory exam: Present: normal lung sounds bilaterally. Absent: respiratory distress, wheezes, rales, rhonchi, stridor Cardiovascular Exam: Present: normal rhythm, tachycardia, normal heart sounds. Absent: systolic murmur, diastolic murmur, rubs, gallop, clicks GI/Abdominal exam: Present: soft, tenderness (Suprapubic), normal bowel sounds. Absent: distended, guarding, rebound, rigid Extremities exam: Present: normal inspection, full ROM, normal capillary refill. Absent: tenderness, pedal edema, joint swelling, calf tenderness Back exam: Present: normal inspection Neurological exam: Present: alert, oriented X3, CN II-XII intact Psychiatric exam: Present: normal affect, normal mood Skin exam: Present: warm, dry, intact, normal color. Absent: rash <Layla Mcmahan A - Last Filed: 10/14/24 22:36> Course <Gregorio Camarillo - Last Filed: 10/13/24 23:50> Vital Signs 10/12/24 10/12/24 10/12/24 13:44 16:21 18:00 Temperature 97.4 F L Pulse Rate 109 H 94 84 Respiratory 20 17 17 Rate Blood Pressure 134/83 129/92 149/62 O2 Sat by Pulse 99 97 97 Oximetry 10/12/24 10/12/24 21:24 23:51 Temperature 98.8 F Pulse Rate 94 81 Respiratory 19 16 Rate Blood Pressure 129/76 117/74 O2 Sat by Pulse 98 97 Oximetry - Reevaluation(s) Reevaluation #1: 10/12/24 19:30 Medical records reviewed (Gregorio Camarillo) Reevaluation #2: 10/12/24 19:30 Patient symptoms are improved here in the ER continues to have pain (Gregorio Camarillo) Reevaluation #3: 10/12/24 19:30 Patient informed of results questions answered (Gregorio Camarillo) Reevaluation #4: Was pt. sent in by a medical professional or institution (, PA, COMPRESSION MOLDING MACHINE TENDER, urgent care, hospital, or long term...) When possible be specific @ -no Did you speak to anyone other than the patient for history (EMS, parent, family, police, friend...)? What history was obtained from this source @ -no Did you review nursing and triage notes (agree or disagree)? Why? @ -agree Are old charts reviewed (outside hosp., previous admission, EMS record, old EKG, old radiological studies, urgent care reports/EKG's, long term records)? Report findings @ -yes Differential Diagnosis (chest pain, altered mental status, abdominal pain women, abdominal pain men, vaginal bleeding, weakness, fever, dyspnea, syncope, headache, dizziness, GI bleed, back pain, seizure, CVA, palpatations, mental health, musculoskeletal)? @ -prior EKG interpreted by me (3pts min.). @ -yes X-rays interpreted by me (1pt min.). @ -no CT interpreted by me (1pt min.). @ -yes negative for acute disease U/S interpreted by me (1pt. min.). @ -no What testing was considered but not performed or refused? (CT, X-rays, U/S, labs)? Why? @ -none What meds were considered but not given or refused? Why? @ -none Did you discuss the management of the patient with other professionals (professionals i.e. , PA, COMPRESSION MOLDING MACHINE TENDER, lab, RT, psych nurse, social work nurse, equity analyst, teacher, community reinvestment act officer, case liner)? Give summary @ -no Was smoking cessation discussed for >3mins.? @ -no Was critical care preformed (if so, how long)? @ -no Were there social determinants of health that impacted care today? How? (Homelessness, low income, unemployed, alcoholism, drug addiction, transportation, low edu. Level, literacy, decrease access to med. care, assisted, rehab)? @ -none Was there de-escalation of care discussed even if they declined (Discuss DNR or withdrawal of care, Hospice)? DNR status @ -no What co-morbidities impacted this encounter? (DM, HTN, Smoking, COPD, CAD, Cancer, CVA, ARF, Chemo, Hep., AIDS, mental health diagnosis, sleep apnea, morbid obesity)? @ -none Was patient admitted / discharged? Hospital course, mention meds given and route, prescriptions, significant lab abnormalities, going to OR and other pertinent info. @ - 59 female will be admitted for IV antibiotics UTI dehydration failed outpatient treatment of UTI Admitted Undiagnosed new problem with uncertain prognosis? @ -no Drug Therapy requiring intensive monitoring for toxicity (Heparin, Nitro, Insulin, Cardizem)? @ -no Were any procedures done? @ -no Diagnosis/symptom? @ -UTI abdominal pain failed outpatient treatment Acute, or Chronic, or Acute on Chronic? @ -Acute Uncomplicated (without systemic symptoms) or Complicated (systemic symptoms)? @ -Complicated Side effects of treatment? @ -no Exacerbation, Progression, or Severe Exacerbation? @ -exacerbation Poses a threat to life or bodily function? How? (Chest pain, [place], [place], pneumonia, PE, COPD, DKA, ARF, appy, cholecystitis, CVA, Diverticulitis, Homicidal, Suicidal, threat to staff... and all critical care pts) @ -no (Gregorio Camarillo) Reevaluation #5: Differential Abdominal Pain Women: Appendicitis, Cholecystitis, diverticulosis, ischemic bowel, pancreatitis, hepatitis, UTI, gastroenteritis, AAA, incarcerated hernia, bowel obstruction, constipation, inflammatory bowel, hepatitis, peptic ulcer disease, splenic infarction, perforated viscus, vulvitis, ovarian torsion, PID, kidney stone, placenta abruption, this is not meant to be an all-inclusive list Differential Chest Pain: Stable Angina, Unstable Angina, STEMI, NSTEMI Aortic Dissection, Pneumothorax, Musculoskeletal, Esophageal Spasm GERD, Cholecystitis, Pancreatitis, Zoster, this is not meant to be an all-inclusive list. (Gregorio Camarillo) - Consultations Consultation #1: Spoke with [facility] who agrees to admit this patient (Gregorio Camarillo) Medical Decision Making - Lab Data Result diagrams: 10/13/24 05:04 10/13/24 05:04 - Radiology Data Radiology results: report reviewed (CT chest abdomen pelvis negative for acute disease), image reviewed <Gregorio Camarillo - Last Filed: 10/13/24 23:50> - Lab Data Result diagrams: 10/14/24 04:53 10/14/24 04:53 <Layla Mcmahan - Last Filed: 10/14/24 22:36> - Medical Decision Making 59 female will be admitted for IV antibiotics UTI dehydration failed outpatient treatment of UTI (Gregorio Camarillo) Was pt. sent in by a medical professional or institution ([facility] Marx, COMPRESSION MOLDING MACHINE TENDER, urgent care, hospital, or long term...) When possible be specific @ -No Did you speak to anyone other than the patient for history (EMS, parent, family, police, friend...)? What history was obtained from this source @ -I spoke with the patient's son for history Did you review nursing and triage notes (agree or disagree)? Why? @ -I reviewed and agree with nursing and triage notes Were old charts reviewed (outside hosp., previous admission, EMS record, old EKG, old radiological studies, urgent care reports/EKG's, long term records)? Report findings @ -No old charts were reviewed Differential Diagnosis (chest pain, altered mental status, abdominal pain women, abdominal pain men, vaginal bleeding, weakness, fever, dyspnea, syncope, headache, dizziness, GI bleed, back pain, seizure, CVA, palpatations, mental health, musculoskeletal)? @ -Differential Abdominal Pain Women: Appendicitis, Cholecystitis, diverticulosis, ischemic bowel, pancreatitis, hepatitis, UTI, gastroenteritis, AAA, incarcerated hernia, bowel obstruction, constipation, inflammatory bowel, hepatitis, peptic ulcer disease, splenic infarction, perforated viscus, vulvitis, ovarian torsion, PID, kidney stone, placenta abruption, this is not meant to be an all-inclusive list EKG interpreted by me (3pts min.). @ -Yes which demonstrates sinus tach with a rate of 112. HI interval 148. QRS 80. QTc of 378. No acute ST segment elevations or depressions X-rays interpreted by me (1pt min.). @ -yes which demonstrates no acute process CT interpreted by me (1pt min.). @ -Yes which demonstrates no PE U/S interpreted by me (1pt. min.). @ -None done What testing was considered but not performed or refused? (CT, X-rays, U/S, labs)? Why? @ -None What meds were considered but not given or refused? Why? @ -None Did you discuss the management of the patient with other professionals (professionals i.e. , PA, COMPRESSION MOLDING MACHINE TENDER, lab, RT, psych nurse, social work nurse, equity analyst, teacher, community reinvestment act officer, case liner)? Give summary @ -Spoke with Dr. Camarillo who will follow up on the urine sample when the patient provides 1 and will dispo the patient Was smoking cessation discussed for >3mins.? @ -No Was critical care preformed (if so, how long)? @ -No Were there social determinants of health that impacted care today? How? (Homelessness, low income, unemployed, alcoholism, drug addiction, transportation, low edu. Level, literacy, decrease access to med. care, assisted, rehab)? @ -No Was there de-escalation of care discussed even if they declined (Discuss DNR or withdrawal of care, Hospice)? DNR status @ -No What co-morbidities impacted this encounter? (DM, HTN, Smoking, COPD, CAD, Cancer, CVA, ARF, Chemo, Hep., AIDS, mental health diagnosis, sleep apnea, morbid obesity)? @ -CHF Was patient admitted / discharged? Hospital course, mention meds given and route, prescriptions, significant lab abnormalities, going to OR and other pertinent info. @ -Upon arrival patient seen and evaluated in bed 1. Thorough history and physical exam was performed. Patient placed on continuous pulse ox and cardiac monitoring. Laboratory studies are conducted. Chest x-ray is performed. Patient is tachycardic and complaining of shortness of breath. She is sent for CT of her chest as well as a CT of her abdomen. Awaiting urinalysis at this time. Patient will be signed out to Dr. Camarillo for disposition Undiagnosed new problem with uncertain prognosis? @ -No Drug Therapy requiring intensive monitoring for toxicity (Heparin, Nitro, Insulin, Cardizem)? @ -No Were any procedures done? @ -No Diagnosis/symptom? @ -Acute abdominal pain, acute respiratory insufficiency, sinus tachycardia Acute, or Chronic, or Acute on Chronic? @ -Acute Uncomplicated (without systemic symptoms) or Complicated (systemic symptoms)? @ -Complicated Side effects of treatment? @ -No Exacerbation, Progression, or Severe Exacerbation? @ -No Poses a threat to life or bodily function? How? (Chest pain, [place], [place], pneumonia, PE, COPD, DKA, ARF, appy, cholecystitis, CVA, Diverticulitis, Homicidal, S uicidal, threat to staff... and all critical care pts) @ -No (Layla Mcmahan) - Lab Data Lab Results 10/12/24 10/12/24 10/12/24 Range/Units 14:25 14:25 14:25 WBC 9.97 (4.50-10.00) 10*3/uL RBC 4.33 (4.10-5.20) 10*6/uL Hgb 11.8 L (12.0-15.0) g/dL Hct 38.3 (37.2-46.3) % MCV 88.5 (80.0-97.0) fL MCH 27.3 (27.0-32.0) pg MCHC 30.8 L (32.0-37.0) g/dL Plt Count 301 (140-440) 10*3/uL MPV 9.0 L (9.5-12.2) fL Immature Gran % (Auto) 0.7 % Neutrophils % 81.2 % Lymphocytes % 12.0 % Monocytes % 5.0 % Eosinophils % 0.5 % Basophils % 0.6 % Immature Gran # 0.07 H (0.00-0.04) 10*3/uL Neutrophils # 8.09 H (1.80-7.70) 10*3/uL Lymphocytes # 1.20 (0.90-5.00) 10*3/uL Monocytes # 0.50 (0.20-1.00) 10*3/uL Eosinophils # 0.05 (0.04-0.35) 10*3/uL Basophils # 0.06 (0.00-0.10) 10*3/uL PT 12.1 (10.0-12.5) sec INR 1.1 (<1.2) APTT 27.7 (22.0-30.0) sec Sodium 137 (137-145) mmol/L Potassium 4.4 (3.5-5.1) mmol/L Chloride 102 (98-107) mmol/L Carbon Dioxide 24 (22-30) mmol/L Anion Gap 11 mmol/L BUN 20 H (7-17) mg/dL Creatinine 0.73 (0.52-1.04) mg/dL Est GFR (CKD-EPI)AfAm >90 (>60 ml/min/1.73 sqM) Est GFR (CKD-EPI)NonAf >90 (>60 ml/min/1.73 sqM) Glucose 139 H (74-99) mg/dL Calcium 10.6 H (8.4-10.2) mg/dL Total Bilirubin 1.2 (0.2-1.3) mg/dL AST 36 (14-36) U/L ALT 42 H (4-34) U/L Alkaline Phosphatase 121 (38-126) U/L Troponin I (0.000-0.034) ng/mL NT-Pro-B Natriuret Pep 418 pg/mL Total Protein 7.1 (6.3-8.2) g/dL Albumin 3.9 (3.5-5.0) g/dL 10/12/24 Range/Units 14:25 WBC (4.50-10.00) 10*3/uL RBC (4.10-5.20) 10*6/uL Hgb (12.0-15.0) g/dL Hct (37.2-46.3) % MCV (80.0-97.0) fL MCH (27.0-32.0) pg MCHC (32.0-37.0) g/dL Plt Count (140-440) 10*3/uL MPV (9.5-12.2) fL Immature Gran % (Auto) % Neutrophils % % Lymphocytes % % Monocytes % % Eosinophils % % Basophils % % Immature Gran # (0.00-0.04) 10*3/uL Neutrophils # (1.80-7.70) 10*3/uL Lymphocytes # (0.90-5.00) 10*3/uL Monocytes # (0.20-1.00) 10*3/uL Eosinophils # (0.04-0.35) 10*3/uL Basophils # (0.00-0.10) 10*3/uL PT (10.0-12.5) sec INR (<1.2) APTT (22.0-30.0) sec Sodium (137-145) mmol/L Potassium (3.5-5.1) mmol/L Chloride (98-107) mmol/L Carbon Dioxide (22-30) mmol/L Anion Gap mmol/L BUN (7-17) mg/dL Creatinine (0.52-1.04) mg/dL Est GFR (CKD-EPI)AfAm (>60 ml/min/1.73 sqM) Est GFR (CKD-EPI)NonAf (>60 ml/min/1.73 sqM) Glucose (74-99) mg/dL Calcium (8.4-10.2) mg/dL Total Bilirubin (0.2-1.3) mg/dL AST (14-36) U/L ALT (4-34) U/L Alkaline Phosphatase (38-126) U/L Troponin I 0.017 (0.000-0.034) ng/mL NT-Pro-B Natriuret Pep pg/mL Total Protein (6.3-8.2) g/dL Albumin (3.5-5.0) g/dL Disposition Is patient prescribed a controlled substance at d/c from ED?: No Time of Disposition: 19:30 <Gregorio Camarillo - Last Filed: 10/13/24 23:50> <Layla Mcmahan - Last Filed: 10/14/24 22:36> Clinical Impression: UTI (urinary tract infection), Atrial fibrillation, Abdominal pain, Chest pain Disposition: ADMITTED IP TO THIS HOSP Condition: Fair
--- NOTE | 2024-10-12 15:29 | XR ---
EXAMINATION TYPE: XR chest 2V DATE OF EXAM: 10/12/2024 2:49 PM COMPARISON: Chest radiographs from 09/06/2024 CLINICAL INDICATION: Female, 59 years old with history of difficulty breathing; MERGED WITH [facility] TECHNIQUE: XR chest 2V Frontal and lateral views of the chest. FINDINGS: Lungs/Pleura: There is no evidence of pleural effusion, focal consolidation, or pneumothorax. Pulmonary vascularity: Unremarkable. Heart/mediastinum: Cardiomediastinal silhouette is unremarkable. Musculoskeletal: No acute osseous pathology. IMPRESSION: No acute cardiopulmonary disease/process. [facility], , 10/12/2024 3:26 PM
--- NOTE | 2024-10-12 17:56 | CT ---
EXAMINATION TYPE: CT abdomen pelvis w con, CT chest angio for PE DATE OF EXAM: 10/12/2024 5:11 PM COMPARISON: 10/05/2017 CLINICAL INDICATION: Female, 59 years old with history of abd pain; Pt having increase BHUMIKA and dizzin ess. Pt also being treated for UTI. TECHNIQUE: CTA scan of the thorax. MIP images are created and reviewed these are created on a separate workstati on.. Axial CT abdomen pelvis w con, CT chest angio for PE;Sagittal and coronal reformats were created on a separate workstation. Contrast used:100 ml mL of Isovue 370 with IV Contrast, (none if empty) Oral contrast used: without Oral Contrast (none if empty) CT DLP: combined 3380.2 mGycm, Automated exposure control for dose reduction was used. FINDINGS: Lungs/Pleura: Elevated left diaphragm. No evidence of focal consolidation, pleural effusion or pneumo thorax. Airway: Large airways are patent. Heart: Size within normal limits. No significant coronary artery calcifications. Vasculature: There is no evidence for a filling defect within the pulmonary vasculature to suggest ac [place] pulmonary embolism. The pulmonary artery is of normal size. Mediastinum: No gross evidence of adenopathy. Dilated esophagus with large amount of ingested content s. Dilated up to 5.9 cm Musculoskeletal: No acute osseous abnormalities Soft Tissues/lymph nodes: Unremarkable. Lower neck: No significant findings. Upper Abdomen: No significant findings. ABDOMEN LIVER: Unremarkable GALLBLADDER AND BILE DUCTS: The gallbladder is surgically absent. PANCREAS: Unremarkable. SPLEEN: Unremarkable. ADRENAL GLANDS: Unremarkable. KIDNEYS AND URETERS: No evidence of hydronephrosis or obstructing renal calculus. The ureters are unr emarkable. PELVIS BLADDER: No evidence for wall thickening or mass given limitations of exam. REPRODUCTIVE: Unremarkable. ABDOMEN & PELVIS STOMACH AND BOWEL: No evidence of bowel obstruction. Scattered colonic diverticula. The appendix is n ormal. PERITONEUM/RETROPERITONEUM: No evidence of pneumoperitoneum or free fluid. VASCULATURE: Mild atherosclerotic calcifications are present throughout the abdominal aorta and its b ranches. No evidence of aortic aneurysm. MUSCULOSKELETAL: No acute osseous abnormalities LYMPH NODES: No gross evidence for lymphadenopathy. SOFT TISSUE/ABDOMINAL WALL: Unremarkable IMPRESSION: 1. No evidence for pulmonary embolus. Since for acute process in the thorax. 2. Dilated esophagus with ingested contents correlate for achalasia. 3. No evidence for acute intra-abdominal process. 4. Colonic diverticulosis. [facility], , 10/12/2024 5:54 PM
[2024-10-12] MEDS: HYDROmorphone 1 MG/ML 1 ML SYRINGE IVP STA (18:49)
[2024-10-12] MEDS: SODIUM CHLORIDE 0.9% 1,000 ML IV ONE (18:52)
[2024-10-12] MEDS: SODIUM CHLORIDE 0.9% 500 ML 500 ML IV ONE (18:53)
[2024-10-12] MEDS: SODIUM CHLORIDE 0.9% 1,000 ML IV SCH ×2 (18:53→22:17)
[2024-10-12] MEDS ORDERED: NALOXONE 0.4 MG/ML 1 ML VIAL IV PRN (19:28)
[2024-10-12 21:03] LABS: Bilirubin,Urine Negative (Negative); Blood,Urine Negative (Negative); Color,Urine Yellow; Glucose,Urine (UA) Negative (Negative); Ketones,Urine Negative (Negative); Leukocyte Esterase,Urine Negative (Negative); Nitrite,Urine Negative (Negative); PH, Urine 7.0 (5.0-8.0); Protein,Urine Trace (Negative); Urobilinogen,Urine 6.0 mg/dL (<2.0)
[2024-10-12] MEDS: HYDROmorphone 1 MG/ML 1 ML SYRINGE IVP PRN (21:15)
[2024-10-12 21:39] LABS: Specific Gravity,Urine >1.050 (1.001-1.035)
[2024-10-12] MEDS ORDERED: hydrALAZINE HCL 20 MG/ML 1 ML VIAL IVP PRN (22:46)
[2024-10-12] MEDS: PANTOPRAZOLE 40 MG/10 ML VIAL IVP SCH (23:30)
[2024-10-13] MEDS: HYDROmorphone 0.5 MG/0.5 ML SYRINGE IVP PRN (05:16)
--- NOTE | 2024-10-13 06:20 | HP ---
HISTORY AND PHYSICAL CHIEF COMPLAINTS: Multiple chief complaints including shortness of breath, chest pain, anxiety, abdominal pain, cough. HISTORY OF PRESENT ILLNESS: This 59-year-old woman with a past medical history of multiple medical problems, being followed by Dr. Juanito Abreu in the outpatient setting, was recently admitted with atrial fibrillation, CHF. Currently, the patient has multiple symptomatology as mentioned earlier. The patient came to [facility] and was found to have evidence of dilated esophagus with some possible achalasia, colonic diverticulosis. The patient is being admitted for further evaluation and treatment. A CT scan of the abdomen did not show any other abnormality. Chest x-ray showed elevated left hemidiaphragm and increased bronchovascular markings also. There is no history of fever, rigors or chills. PAST MEDICAL HISTORY: Atrial fibrillation. DVT. Rest of the history and chart is also reviewed. HOME MEDICATIONS: Reviewed include Lopressor. Doses and rest of medications reviewed. ALLERGIES: None known. FAMILY HISTORY: History of prostate cancer. SOCIAL HISTORY: Previous history of smoking. REVIEW OF SYSTEMS: A 14-point review of systems is negative, except as mentioned earlier. PHYSICAL EXAMINATION: VITAL SIGNS: Pulse 94, blood pressure 129/73, respirations 19. HEENT: Conjunctivae normal. NECK: No JVD. RESPIRATIONS: Few scattered rhonchi. ABDOMEN: Soft, mild diffuse discomfort in the lower quadrant. EXTREMITIES: No edema. NERVOUS SYSTEM: No focal deficits. LABORATORY DATA: Reviewed. ASSESSMENT: 1. Abdominal chest pain with possible dilated esophagus with ingested contents with chalazia. 2. Atrial fibrillation. 3. History of congestive heart failure. 4. History of deep vein thrombosis. 5. Hypertension. 6. Hyperlipidemia. 7. History of pulmonary embolism. 8. Multiple complex medical issues. RECOMMENDATIONS AND DISCUSSION: This 59-year-old woman, presented with multiple complex medical issues. We will monitor the patient closely. I would recommend symptomatic treatment of the pain. Otherwise, we will recommend consideration with Gastroenterology. Empiric antibiotics have been initiated. Home medications will be continued once they are confirmed. Prognosis guarded because of multiple complex medical problems. Cultures were also obtained. Further recommendations to follow. MMODL / IJN: [id number] /
[2024-10-13 08:15] LABS: Basophils # (A) 0.04 X 10*3/uL (0.00-0.10); Basophils % (A) 0.6 %; Eosinophils # (A) 0.10 X 10*3/uL (0.04-0.35); Eosinophils % (A) 1.5 %; HCT 30.0 % (37.2-46.3); HGB 9.1 g/dL (12.0-15.0); Immature Grans, Automated 0.90 %; Lymphocytes # (A) 1.47 X 10*3/uL (0.90-5.00); Lymphocytes % (A) 21.7 %; MCH 27.7 pg (27.0-32.0); MCHC 30.3 g/dL (32.0-37.0); MCV 91.2 FL (80.0-97.0); Monocytes # (A) 0.46 X 10*3/uL (0.20-1.00); Monocytes % (A) 6.8 %; NRBC Per 100 WBC 0 X 10*3/uL (0.00-0.01); Neutrophils # (A) 4.64 X 10*3/uL (1.80-7.70); Neutrophils % (A) 68.5 %; Platelet Count 270 X 10*3/uL (140-440); RBC 3.29 X 10*6/uL (4.10-5.20); RDW 17.8 % (11.5-14.5); WBC 6.77 X 10*3/uL (4.50-10.00)
[2024-10-13 08:24] LABS: Magnesium 2.0 mg/dL (1.5-2.4)
[2024-10-13 09:03] LABS: ALT 43 U/L (8-44); Albumin 3.2 g/dL (3.8-4.9); Albumin/Globulin Ratio 1.28 Ratio (1.60-3.17); Alkaline Phosphatase 93 U/L (41-126); Anion Gap 9.80 mmol/L (4.00-12.00); BUN/Creat Ratio 24.71 Ratio (12.00-20.00); Blood Urea Nitrogen 17.3 mg/dL (9.0-27.0); Calcium 9.4 mg/dL (8.7-10.3); Carbon Dioxide 24.2 mmol/L (21.6-31.8); Chloride 103 mmol/L (96-109); Globulin 2.5 g/dL (1.6-3.3); Glucose 121 mg/dL (70-110); Potassium 4.4 mmol/L (3.5-5.5); Sodium 137 mmol/L (135-145); Total Protein 5.7 g/dL (6.2-8.2)
[2024-10-13] MEDS: HEPARIN SODIUM,PORCINE 5,000 UNIT/ML 1 ML VIAL SQ SCH (09:06)
--- NOTE | 2024-10-13 13:30 | PN ---
PROGRESS NOTE DATE OF SERVICE: 10/13/2024 SUBJECTIVE: This 59-year-old woman was admitted with abdominal pain with possible dilated esophagus, who is ingested contents and achalasia, is being closely monitored. No chest pain. No palpitation. The patient had Heller procedure previously. OBJECTIVE: VITAL SIGNS: Pulse is 90, blood pressure 114/69, and respirations 18. CHEST: Few scattered rhonchi. ABDOMEN: Soft, mild tenderness. NERVOUS SYSTEM: nonfocal. LABORATORY DATA: Reviewed. ASSESSMENT: 1. Abdominal pain, chest pain with possible dilated esophagus with ingested contents with achalasia. 2. History of Heller procedure. 3. Atrial fibrillation. 4. History of congestive heart failure. 5. History of deep venous thrombosis. 6. Hypertension. 7. Hyperlipidemia. 8. History of pulmonary embolism. 9. Multiple complex medical issues. RECOMMENDATIONS: Recommend to continue current management and continue symptomatic treatment. Otherwise, the patient recommended Surgery consultation. GI is not available and I would also recommend Infectious Disease to evaluate for any UTI also. The patient had a history of recent UTI. Guarded prognosis. Further recommendations to follow. MMODL / IJN: [id number] / SHEREEN
--- NOTE | 2024-10-13 14:17 | P.GSCN ---
History of Present Illness Consult date: 10/13/24 History of present illness: CHIEF COMPLAINT: Abdominal pain HISTORY OF PRESENT ILLNESS: This is a 59-year-old female who presented the hospital with complaints of suprapubic and right lower quadrant abdominal pain. Patient reports she has had pain intermittently over the last 2 weeks. She was recently diagnosed with UTI and had completed antibiotics. She had been having burning with urination but that did improve with antibiotics. Patient reports having tenderness in both the left and right lower quadrant. Patient reports pain is more now in the right lower quadrant and radiates to her back. She denies any nausea or vomiting. She is tolerating regular diet. Last bowel movement was yesterday. But she has been dealing with constipation and sometimes goes 3 to 5 days without a bowel movement. She does report decreased appetite. She does have a known past medical history of achalasia. She reports having the OR procedure for the achalasia as well as a prior EGD with dilation. She has had achalasia for about 35 years. Other medical history includes A-fib, DVT and on Eliquis. Last dose of Eliquis was yesterday morning on 10/12/2024. Patient past surgical history also includes a cholecystectomy. Patient had CT scan abdomen pelvis and chest that reported no evidence of PE. Dilated esophagus with ingested contents correlate for achalasia. No evidence for acute intra-abdominal process. Colonic diverticulosis. Patient is currently tolera ting regular diet. PAST MEDICAL HISTORY: Atrial Fibrillation, Heart Failure, Deep Vein Thrombosis (DVT), GERD/Reflux, Hyperlipidemia, Hypertension, Osteoarthritis (OA), Pulmonary Embolus (PE), DVT y ears ago after taking control, achalasia, restrictive lung disease. Hx Pneumonia September 2017. October 2017 DVT and PE with poor liver and kidney function at that time. PAST SURGICAL HISTORY: Ablation, Cholecystectomy, Heart Catheterization, Orthopedic Surgery, history of achalasia with removed rib and Hilar procedure MEDICATIONS: See below ALLERGIES: See below SOCIAL HISTORY: No illicit drug use. REVIEW OF SYSTEMS: CONSTITUTIONAL: Denies fever or chills. HEENT: Denies blurred vision, vision changes, or eye pain. Denies hemoptysis CARDIOVASCULAR: Denies chest pain or pressure. RESPIRATORY: No shortness of breath. GASTROINTESTINAL: See HPI for pertinent findings HEMATOLOGIC: Denies bleeding disorders. GENITOURINARY: Denies any blood in urine or increased urinary frequency. SKIN: Denies pruitis. Denies rash. PHYSICAL EXAM: VITAL SIGNS: Reviewed GENERAL: Well-developed in no acute distress. HEENT: No sclera icterus. Extraocular movements grossly intact. Moist buccal m [place]. Head is atraumatic, normocephalic. No nasal drainage. ABDOMEN: Soft. Obese. Nondistended. Tenderness palpation right lower quadrant and suprapubic area NEUROLOGIC: Alert and oriented. Cranial nerves II through XII grossly intact. LABORATORY DATA: WBC 6.77 Hgb 11.8-9.1 platelets 270 Sodium 137 potassium 4.4 creatinine 0.7 Total bilirubin 0.5 AST 36 ALT 42 and alk phos 121 Urinalysis negative for infection IMAGING: Patient had CT scan abdomen pelvis and chest that reported no evidence of PE. Dilated esophagus with ingested contents correlate for achalasia. No evidence for acute intra-abdominal process. Colonic diverticulosis. ASSESSMENT: 1. Abdominal pain: suprapubic and right lower quadrant pain radiating to back. Possibly related to UTI 2. History of chronic achalasia 3. History of A-fib, PE and DVT PLAN: -No surgical intervention planned -Continue regular diet -Continue antibiotics for UTI Physician Screening Tech note has been reviewed by physician. Signing provider agrees with the documented findings, assessment, and plan of care. Past Medical History Past Medical History: Atrial Fibrillation, Heart Failure, Deep Vein Thrombosis (DVT), GERD/Reflux, Hyperlipidemia, Hypertension, Osteoarthritis (OA), Pulmonary Embolus (PE) Additional Past Medical History / Comment(s): DVT years ago after taking control, esophageal achalasia, restrictive lung disease with 58% lung capacity. Hx Pneumonia September 2017. October 2017 DVT and PE with poor liver and kidney function at that time. Bilateral leg swelling at times, wears compression stockings to work, border line diabetic. History of Any Multi-Drug Resistant Organisms: None Reported Past Surgical History: Ablation, Cholecystectomy, Heart Catheterization, Orthopedic Surgery Additional Past Surgical History / Comment(s): BILAT CTR,STATES ESOPHAGUS WAS TOO TIGHT AND THEY REMOVED HER RIB AND DID HILAR PROCEDURE, eye surgery as a baby. COLONOSCOPY/EGD Past Anesthesia/Blood Transfusion Reactions: No Reported Reaction Past Psychological History: Anxiety, Depression Smoking Status: Former smoker Past Alcohol Use History: Occasional Additional Past Alcohol Use History / Comment(s): QUIT SMOKING 2012, SMOKED 2 PPD. SMOKED FOR OVER 30 YEARS. Past Drug Use History: None Reported - Past Family History Father Family Medical History: Cancer Additional Family Medical History / Comment(s): PROSTATE CANCER Sister(s) Family Medical History: Cancer Additional Family Medical History / Comment(s): Skin cancer. Medications and Allergies Home Medications Medication Instructions Recorded Confirmed Type Apixaban [Eliquis] 5 mg PO BID #60 tab 11/17/17 10/12/24 Rx DULoxetine HCL [Cymbalta] 60 mg PO BID 03/02/21 10/12/24 History Albuterol Nebulized [Ventolin 2.5 mg INHALATION RT-TID PRN 09/02/24 10/12/24 History Nebulized] Atorvastatin [Lipitor] 20 mg PO DAILY 09/02/24 10/12/24 History Metoprolol Tartrate [Lopressor] 50 mg PO BID #60 tab 09/03/24 10/12/24 Rx Losartan [Cozaar] 50 mg PO DAILY #30 tab 09/08/24 10/12/24 Rx Furosemide [Lasix] 20 mg PO DAILY 10/12/24 10/12/24 History Allergies Allergy/AdvReac Type Severity Reaction Status Date / Time No Known Allergies Allergy Verified 10/12/24 19:27 Surgical - Exam Vital Signs Temp Pulse Resp BP Pulse Ox 97.4 F L 109 H 20 134/83 99 10/12/24 13:44 10/12/24 13:44 10/12/24 13:44 10/12/24 13:44 10/12/24 13:44 Results - Labs 10/13/24 05:04 10/13/24 05:04 Abnormal Lab Results - Last 24 Hours (Table) 10/12/24 10/12/24 10/12/24 Range/Units 14:25 14:25 20:25 RBC (4.10-5.20) X 10*6/uL Hgb 11.8 L (12.0-15.0) g/dL Hct (37.2-46.3) % MCHC 30.8 L (32.0-37.0) g/dL RDW (11.5-14.5) % MPV 9.0 L (9.5-12.2) fL Immature Gran # 0.07 H (0.00-0.04) 10*3/uL Neutrophils # 8.09 H (1.80-7.70) 10*3/uL BUN 20 H (7-17) mg/dL BUN/Creatinine Ratio (12.00-20.00) Ratio Glucose 139 H (74-99) mg/dL Calcium 10.6 H (8.4-10.2) mg/dL ALT 42 H (4-34) U/L Total Protein (6.2-8.2) g/dL Albumin (3.8-4.9) g/dL Albumin/Globulin Ratio (1.60-3.17) Ratio Ur Specific [place] >1.050 H (1.001-1.035) Urine Protein Trace H (Negative) 10/13/24 10/13/24 Range/Units 05:04 05:04 RBC 3.29 L (4.10-5.20) X 10*6/uL Hgb 9.1 L (12.0-15.0) g/dL Hct 30.0 L (37.2-46.3) % MCHC 30.3 L (32.0-37.0) g/dL RDW 17.8 H (11.5-14.5) % MPV (9.5-12.2) fL Immature Gran # 0.06 H (0.00-0.04) 10*3/uL Neutrophils # (1.80-7.70) 10*3/uL BUN (7-17) mg/dL BUN/Creatinine Ratio 24.71 H (12.00-20.00) Ratio Glucose 121 H (74-99) mg/dL Calcium (8.4-10.2) mg/dL ALT (4-34) U/L Total Protein 5.7 L (6.2-8.2) g/dL Albumin 3.2 L (3.8-4.9) g/dL Albumin/Globulin Ratio 1.28 L (1.60-3.17) Ratio Ur Specific [place] (1.001-1.035) Urine Protein (Negative) Diabetes panel 10/12/24 10/13/24 Range/Units 14:25 05:04 Sodium 137 137 (137-145) mmol/L Potassium 4.4 4.4 (3.5-5.1) mmol/L Chloride 102 103 (98-107) mmol/L Carbon Dioxide 24 24.2 (22-30) mmol/L BUN 20 H 17.3 (7-17) mg/dL Creatinine 0.73 0.7 (0.52-1.04) mg/dL Glucose 139 H 121 H (74-99) mg/dL Calcium 10.6 H 9.4 (8.4-10.2) mg/dL AST 36 (14-36) U/L ALT 42 H 43 (4-34) U/L Alkaline Phosphatase 121 93 (38-126) U/L Total Protein 7.1 5.7 L (6.3-8.2) g/dL Albumin 3.9 3.2 L (3.5-5.0) g/dL Calcium panel 10/12/24 10/13/24 Range/Units 14:25 05:04 Calcium 10.6 H 9.4 (8.4-10.2) mg/dL Phosphorus 3.7 (2.4-5.1) mg/dL Albumin 3.9 3.2 L (3.5-5.0) g/dL Pituitary panel 10/12/24 10/13/24 Range/Units 14:25 05:04 Sodium 137 137 (137-145) mmol/L Potassium 4.4 4.4 (3.5-5.1) mmol/L Chloride 102 103 (98-107) mmol/L Carbon Dioxide 24 24.2 (22-30) mmol/L BUN 20 H 17.3 (7-17) mg/dL Creatinine 0.73 0.7 (0.52-1.04) mg/dL Glucose 139 H 121 H (74-99) mg/dL Calcium 10.6 H 9.4 (8.4-10.2) mg/dL Adrenal panel 10/12/24 10/13/24 Range/Units 14:25 05:04 Sodium 137 137 (137-145) mmol/L Potassium 4.4 4.4 (3.5-5.1) mmol/L Chloride 102 103 (98-107) mmol/L Carbon Dioxide 24 24.2 (22-30) mmol/L BUN 20 H 17.3 (7-17) mg/dL Creatinine 0.73 0.7 (0.52-1.04) mg/dL Glucose 139 H 121 H (74-99) mg/dL Calcium 10.6 H 9.4 (8.4-10.2) mg/dL Total Bilirubin 1.2 0.5 (0.2-1.3) mg/dL AST 36 (14-36) U/L ALT 42 H 43 (4-34) U/L Alkaline Phosphatase 121 93 (38-126) U/L Total Protein 7.1 5.7 L (6.3-8.2) g/dL Albumin 3.9 3.2 L (3.5-5.0) g/dL
--- NOTE | 2024-10-14 06:14 | P.CONS ---
History of Present Illness - Reason for Consult Consult date: 10/13/24 UTI Requesting physician: Michelle Arevalo - Chief Complaint Abdominal pain x few days - History of Present Illness Patient is a 59-year-old female with a past medical history significant for hypertension hyperlipidemia osteoarthritis DVT atrial fibrillation recently treated in the outpatient setting from urgent care with the Bactrim DS for UTI presenting to [facility] ER subsequently with persistent symptoms she has been complaining of lower abdominal pain as well as shortness of breath patient describes the pain to be mostly dull aching to sharp moderate tenderness without radiation is complaining of urinary burning and frequency but no hematuria and denies having any diarrhea did have some nausea but no vomiting no significant cough or sputum production on presentation to the hospital patient was afebrile and no fever have recorded subsequently patient was tachycardic but not hypotensive or hypoxic she did have normal white count of 9.97 creatinine 0.73 liver enzymes are normal urine has been negative patient was started on ceftriaxone she did have abdominal pelvis CT that shows dilated esophagus with congestion can consider correlate for achalasia no evidence for acute intra-abdominal process no PE or pneumonia patient was started on c eftriaxone infectious disease was consulted regarding UTI Review of Systems Positive point and negatives has been mentioned in the HPI, complete review of systems was performed and all other systems are negative Past Medical History Past Medical History: Atrial Fibrillation, Heart Failure, Deep Vein Thrombosis (DVT), GERD/Reflux, Hyperlipidemia, Hypertension, Osteoarthritis (OA), Pulmonary Embolus (PE) Additional Past Medical History / Comment(s): DVT years ago after taking control, esophageal achalasia, restrictive lung disease with 58% lung capacity. Hx Pneumonia September 2017. October 2017 DVT and PE with poor liver and kidney function at that time. Bilateral leg swelling at times, wears compression stockings to work, border line diabetic. History of Any Multi-Drug Resistant Organisms: None Reported Past Surgical History: Ablation, Cholecystectomy, Heart Catheterization, Orthopedic Surgery Additional Past Surgical History / Comment(s): BILAT CTR,STATES ESOPHAGUS WAS TOO TIGHT AND THEY REMOVED HER RIB AND DID HILAR PROCEDURE, eye surgery as a baby. COLONOSCOPY/EGD Past Anesthesia/Blood Transfusion Reactions: No Reported Reaction Past Psychological History: Anxiety, Depression Smoking Status: Former smoker Past Alcohol Use History: Occasional Additional Past Alcohol Use History / Comment(s): QUIT SMOKING 2012, SMOKED 2 PPD. SMOKED FOR OVER 30 YEARS. Past Drug Use History: None Reported - Past Family History Father Family Medical History: Cancer Additional Family Medical History / Comment(s): PROSTATE CANCER Sister(s) Family Medical History: Cancer Additional Family Medical History / Comment(s): Skin cancer. Medications and Allergies Home Medications Medication Instructions Recorded Confirmed Type Apixaban [Eliquis] 5 mg PO BID #60 tab 11/17/17 10/12/24 Rx DULoxetine HCL [Cymbalta] 60 mg PO BID 03/02/21 10/12/24 History Albuterol Nebulized [Ventolin 2.5 mg INHALATION RT-TID PRN 09/02/24 10/12/24 History Nebulized] Atorvastatin [Lipitor] 20 mg PO DAILY 09/02/24 10/12/24 History Metoprolol Tartrate [Lopressor] 50 mg PO BID #60 tab 09/03/24 10/12/24 Rx Losartan [Cozaar] 50 mg PO DAILY #30 tab 09/08/24 10/12/24 Rx Furosemide [Lasix] 20 mg PO DAILY 10/12/24 10/12/24 History Allergies Allergy/AdvReac Type Severity Reaction Status Date / Time No Known Allergies Allergy Verified 10/12/24 19:27 Physical Exam Vitals: Vital Signs Temp Pulse Pulse Resp BP BP BP 10/13/24 13:45 97.9 F 96 17 123/70 10/13/24 07:20 98.1 F 90 18 114/69 10/13/24 00:35 16 10/13/24 00:03 97.5 F L 88 16 115/56 10/12/24 23:51 98.8 F 81 16 117/74 10/12/24 21:24 94 19 129/76 Pulse Ox 10/13/24 13:45 99 10/13/24 07:20 96 10/13/24 00:35 10/13/24 00:03 95 10/12/24 23:51 97 10/12/24 21:24 98 Intake and Output 10/13/24 10/13/24 10/13/24 06:59 14:59 22:59 Intake Total 218 Balance 218 Intake: Oral 218 Other: Voiding Method Toilet Toilet # Voids 1 3 Weight 133.81 kg GENERAL DESCRIPTION: Middle-age female lying in bed, no distress. No tachypnea or accessory muscle of respiration use. HEENT: Shows Pallor , no scleral icterus. Oral mucous membrane is dry. NECK: Trachea central, no thyromegaly. LUNGS: Unlabored breathing. Clear to auscultation anteriorly. No wheeze or crackle. HEART: S1, S2, regular rate and rhythm. No loud murmur ABDOMEN: Soft, no tenderness , guarding or rigidity, no organomegaly EXTREMITIES: No edema of feet. SKIN: No rash, no masses palpable. NEUROLOGICAL: The patient is awake, alert, oriented x3, mood and affect normal. Results CBC & Chem 7: 10/13/24 05:04 10/13/24 05:04 Labs: Abnormal Lab Results - Last 24 Hours (Table) 10/12/24 10/13/24 10/13/24 Range/Units 20:25 05:04 05:04 RBC 3.29 L (4.10-5.20) X 10*6/uL Hgb 9.1 L (12.0-15.0) g/dL Hct 30.0 L (37.2-46.3) % MCHC 30.3 L (32.0-37.0) g/dL RDW 17.8 H (11.5-14.5) % Immature Gran # 0.06 H (0.00-0.04) X 10*3/uL BUN/Creatinine Ratio 24.71 H (12.00-20.00) Ratio Glucose 121 H (70-110) mg/dL Total Protein 5.7 L (6.2-8.2) g/dL Albumin 3.2 L (3.8-4.9) g/dL Albumin/Globulin Ratio 1.28 L (1.60-3.17) Ratio Ur Specific [place] >1.050 H (1.001-1.035) Urine Protein Trace H (Negative) Assessment and Plan (1) Abdominal pain Current Visit: Yes Status: Acute Code(s): R10.9 - UNSPECIFIED ABDOMINAL PAIN SNOMED Code(s): 67279667 Plan: 1patient presented to hospital with lower abdominal pain to have urinary symptoms recently completed course of Bactrim DS for UTI patient did have a negative UA more likely indicating adequate treatment of underlying UTI she has been complaining some abdominal pain however the patient did have a CT abdominal pelvis that has been negative for any acute process 2recommend to discontinue Rocephin as no evidence of UTI or acute abnormality seen on the CT We will follow on clinical condition and cultures to further adjust medication if needed Thank you for this consultation we will follow the patient along with you Dictation was produced using [employer] dictation software. please excuse any grammatical, word or spelling errors. Time with Patient: Greater than 30
[2024-10-14] MEDS: AMPICILLIN-SULBACTAM 3 GM in SODIUM CHLORIDE 0.9% 100 ML IVPB SCH (06:34)
[2024-10-14 08:14] LABS: Basophils # (A) 0.05 X 10*3/uL (0.00-0.10); Basophils % (A) 1.0 %; Eosinophils # (A) 0.07 X 10*3/uL (0.04-0.35); Eosinophils % (A) 1.4 %; HCT 32.5 % (37.2-46.3); HGB 9.2 g/dL (12.0-15.0); Immature Grans, Automated 1.00 %; Lymphocytes # (A) 1.18 X 10*3/uL (0.90-5.00); Lymphocytes % (A) 23.6 %; MCH 27.0 pg (27.0-32.0); MCHC 28.3 g/dL (32.0-37.0); MCV 95.3 FL (80.0-97.0); Monocytes # (A) 0.44 X 10*3/uL (0.20-1.00); Monocytes % (A) 8.8 %; NRBC Per 100 WBC 0 X 10*3/uL (0.00-0.01); Neutrophils # (A) 3.21 X 10*3/uL (1.80-7.70); Neutrophils % (A) 64.2 %; Platelet Count 193 X 10*3/uL (140-440); RBC 3.41 X 10*6/uL (4.10-5.20); RDW 17.8 % (11.5-14.5); WBC 5.00 X 10*3/uL (4.50-10.00)
[2024-10-14 08:24] LABS: Anion Gap 9.90 mmol/L (4.00-12.00); BUN/Creat Ratio 18.17 Ratio (12.00-20.00); Blood Urea Nitrogen 10.9 mg/dL (9.0-27.0); Calcium 9.1 mg/dL (8.7-10.3); Carbon Dioxide 22.1 mmol/L (21.6-31.8); Chloride 104 mmol/L (96-109); Glucose 105 mg/dL (70-110); Potassium 4.0 mmol/L (3.5-5.5); Sodium 136 mmol/L (135-145)
[2024-10-14] MEDS: METOPROLOL TARTRATE 50 MG TAB PO SCH (09:23)
[2024-10-14] MEDS: DULoxetine HCL 60 MG CAPSULE.DR PO SCH (09:23)
[2024-10-14] MEDS: APIXABAN 5 MG TAB PO SCH (09:23)
[2024-10-14] MEDS: LACTULOSE 20 GM/30 ML CUP PO ONE (12:16)
--- NOTE | 2024-10-14 12:25 | P.PN ---
Subjective Progress Note Date: 10/14/24 SURGICAL PROGRESS NOTE CHIEF COMPLAINT: Abdominal pain HISTORY OF PRESENT ILLNESS: Patient continues to complain of right lower quadrant abdominal pain. She reports that pain is better since admission. She does report constipation. Last bowel movement was on Sunday. She did have 1 episode of vomiting last night but she contributes that to her achalasia. Infectious disease consult noted. Currently off antibiotics. UTI completed treatment. Afebrile. WBC 5.00 Hgb 9.2. No acute findings on CT scan normal appendix. Patient seen and examined with Dr. Bunn PHYSICAL EXAM: VITAL SIGNS: Reviewed. GENERAL: Well-developed in no acute distress. HEENT: No sclera icterus. Extraocular movements grossly intact. Moist buccal mucosa. Head is atraumatic, normocephalic. ABDOMEN: Soft. Obese nondistended. Tenderness palpation right lower quadrant NEUROLOGIC: Alert and oriented. Cranial nerves II through XII grossly intact. ASSESSMENT: 1. Abdominal pain 2. Ileus likely secondary to recent UTI 3. Chronic achalasia PLAN: - No surgical intervention planned - Lactulose x 1 ordered for ileus and constipation - Encourage patient to increase activity level Physician Front Services Agent note has been reviewed by physician. Signing provider agrees with the documented findings, assessment, and plan of care. Objective - Vital Signs Vital signs: Vital Signs Temp 98.4 F 10/14/24 07:00 Pulse 103 H 10/14/24 07:00 Resp 18 10/14/24 07:00 BP 131/80 10/14/24 07:00 Pulse Ox 95 10/14/24 07:00 FiO2 Intake & Output 10/13/24 10/14/24 10/14/24 18:59 06:59 18:59 Intake Total 458 Balance 458 Intake: Oral 458 Other: Voiding Method Toilet Toilet Toilet # Voids 3 3 - Labs CBC & Chem 7: 10/14/24 04:53 10/14/24 04:53 Labs: Abnormal Lab Results - Last 24 Hours (Table) 10/14/24 Range/Units 04:53 RBC 3.41 L (4.10-5.20) X 10*6/uL Hgb 9.2 L (12.0-15.0) g/dL Hct 32.5 L (37.2-46.3) % MCHC 28.3 L (32.0-37.0) g/dL RDW 17.8 H (11.5-14.5) % Immature Gran # 0.05 H (0.00-0.04) X 10*3/uL Microbiology - Last 24 Hours (Table) 10/12/24 23:04 Blood Culture Gram Stain - Preliminary Blood Blood Culture - Preliminary Molecular ID
--- NOTE | 2024-10-14 21:24 | PN ---
PROGRESS NOTE DATE OF SERVICE: 10/14/2024 SUBJECTIVE: This 59-year-old woman is admitted with abdominal pain, also had possibly failure of outpatient treatment. The patient also had dilated esophagus with ingested contents and achalasia. UTI has been adequately treated per Dr. Jenkins. OBJECTIVE: VITAL SIGNS: Pulse 103, blood pressure 131/80, and respirations 18. CHEST: Clear to auscultation. CARDIOVASCULAR: S1 and S2. ABDOMEN: Soft, mild diffuse discomfort in the lower part of the abdomen. No guarding. No rigidity. No tenderness per Se. LABORATORY DATA: Reviewed. ASSESSMENT: 1. Abdominal pain, chest pain with possible dilated esophagus and ingested contents with achalasia. 2. History of recent urinary tract infection, treated. 3. positive blood cultures 4. History of atrial fibrillation. 5. History of congestive heart failure. 6. History of deep vein thrombosis. 7. Hypertension. 8. Hyperlipidemia. 9. History of pulmonary embolism. 10.Multiple complex medical issues. RECOMMENDATIONS: Recommend to continue current management and continue symptomatic treatment. Otherwise, closely follow with Infectious Disease. The patient is on Unasyn. Currently, we will continue the current medical management, further recommendations to follow. Prognosis guarded. MMODL / IJN: [id number] / MTDD
[2024-10-15 01:13] LABS: Basophils # (A) 0.04 10*3/uL (0.00-0.10); Basophils % (A) 0.8 %; Eosinophils # (A) 0.07 10*3/uL (0.04-0.35); Eosinophils % (A) 1.3 %; HCT 27.4 % (37.2-46.3); Lymphocytes # (A) 1.20 10*3/uL (0.90-5.00); Lymphocytes % (A) 22.9 %; MCH 27.4 pg (27.0-32.0); MCHC 30.3 g/dL (32.0-37.0); MCV 90.4 fL (80.0-97.0); Monocytes # (A) 0.39 10*3/uL (0.20-1.00); Monocytes % (A) 7.4 %; Neutrophils # (A) 3.49 10*3/uL (1.80-7.70); Neutrophils % (A) 66.5 %; Platelet Count 218 10*3/uL (140-440); RBC 3.03 10*6/uL (4.10-5.20); RDW 17.2 % (11.5-14.5); WBC 5.25 10*3/uL (4.50-10.00)
[2024-10-15 01:14] LABS: HGB 8.3 g/dL (12.0-15.0)
[2024-10-15 08:46] LABS: ALT 38 U/L (8-44); AST 23 U/L (13-35); Albumin 3.2 g/dL (3.8-4.9); Albumin/Globulin Ratio 1.39 Ratio (1.60-3.17); Alkaline Phosphatase 90 U/L (41-126); Anion Gap 10.10 mmol/L (4.00-12.00); BUN/Creat Ratio 16.17 Ratio (12.00-20.00); Blood Urea Nitrogen 9.7 mg/dL (9.0-27.0); Calcium 9.1 mg/dL (8.7-10.3); Carbon Dioxide 22.9 mmol/L (21.6-31.8); Chloride 103 mmol/L (96-109); Globulin 2.3 g/dL (1.6-3.3); Glucose 107 mg/dL (70-110); Potassium 3.7 mmol/L (3.5-5.5); Sodium 136 mmol/L (135-145); Total Protein 5.5 g/dL (6.2-8.2)
[2024-10-15] MEDS: LACTULOSE 20 GM/30 ML CUP PO ONE (11:30)
[2024-10-15] MEDS: IOPAMIDOL CONTRAST (ORAL USE) VIAL PO PRN (12:48)
--- NOTE | 2024-10-15 13:25 | P.PN ---
Subjective Progress Note Date: 10/15/24 SURGICAL PROGRESS NOTE CHIEF COMPLAINT: Abdominal pain HISTORY OF PRESENT ILLNESS: Patient reports her abdominal pain is improving. She did have a small bowel movement yesterday after lactulose. Denies any nausea or vomiting. Afebrile. WBC 5.25 Hgb 8 PHYSICAL EXAM: VITAL SIGNS: Reviewed. GENERAL: Well-developed in no acute distress. HEENT: No sclera icterus. Extraocular movements grossly intact. Moist buccal mucosa. Head is atraumatic, normocephalic. ABDOMEN: Soft. Obese nondistended. Mild tenderness palpation right lower quadrant NEUROLOGIC: Alert and oriented. Cranial nerves II through XII grossly intact. ASSESSMENT: 1. Abdominal pain 2. Ileus likely secondary to recent UTI 3. Chronic achalasia 4. Constipation PLAN: -Another 1 dose of lactulose ordered for constipation -No surgical intervention planned -Recommend Benefiber or Metamucil [id number] for fiber supplement daily -Patient can be discharged from surgical standpoint when medically cleared Physician Architecture Faculty Member note has been reviewed by physician. Signing provider agrees with the documented findings, assessment, and plan of care. Objective - Vital Signs Vital signs: Vital Signs Temp 98.6 F 10/15/24 07:00 Pulse 80 10/15/24 07:00 Resp 17 10/15/24 09:07 BP 128/74 10/15/24 07:00 Pulse Ox 96 10/15/24 07:00 FiO2 Intake & Output 10/14/24 10/15/24 10/15/24 18:59 06:59 18:59 Other: Voiding Method Toilet Toilet # Voids 3 3 - Labs CBC & Chem 7: 10/15/24 06:00 10/15/24 06:00 Labs: Abnormal Lab Results - Last 24 Hours (Table) 10/15/24 10/15/24 Range/Units 06:00 06:00 RBC 3.03 L (4.10-5.20) 10*6/uL Hgb 8.3 L D (12.0-15.0) g/dL Hct 27.4 L (37.2-46.3) % MCHC 30.3 L (32.0-37.0) g/dL RDW 17.2 H (11.5-14.5) % MPV 9.4 L (9.5-12.2) fL Immature Gran # 0.06 H (0.00-0.04) 10*3/uL Total Protein 5.5 L (6.2-8.2) g/dL Albumin 3.2 L (3.8-4.9) g/dL Albumin/Globulin Ratio 1.39 L (1.60-3.17) Ratio Microbiology - Last 24 Hours (Table) 10/12/24 22:05 Urine Culture - Final Urine,Clean Catch
--- NOTE | 2024-10-15 14:40 | CT ---
EXAMINATION TYPE: CT abdomen pelvis wo con DATE OF EXAM: 10/15/2024 COMPARISON: 10/12/2024 CLINICAL INDICATION: Female, 59 years old with history of abd pain, poor oral intake; PHH, abdominal pain, right flank pain TECHNIQUE: CT scan of the abdomen and pelvis is performed without oral or IV contrast. CT DLP: 2335.[address] CTDI: mGy Automated exposure control for dose reduction was used. FINDINGS: Within the limitations of a non-contrast study, the following observations are made. The lungs are clear. There is marginal hernia with a partially intrathoracic stomach. There is surgical absence of the gallbladder. There is no biliary ductal dilatation. There is no organomegaly of the liver, pancreas, spleen or adrenal glands. There are no renal calcifications or hydronephrosis. The caliber of the abdominal aorta is normal and there is no retroperitoneal adenopathy or hemorrhage . The bowel loops are normal in caliber is no evidence of obstruction. No inflammatory changes are iden tified in the mesentery and there is no free intraperitoneal air or fluid. There is no pelvic mass, free fluid, abscess or adenopathy. There is mild diverticulosis of the colon without CT evidence of diverticulitis. The osseous structures and soft tissues are unremarkable. IMPRESSION: No acute changes within the abdomen and pelvis. No interval change compared to the study of 10/12/2024 [facility], , 10/15/2024 2:37 PM
--- NOTE | 2024-10-16 06:00 | P.PN ---
Subjective Progress Note Date: 10/15/24 This is a pleasant 59-year-old female who was recently admitted with abdominal pain noted to have a dilated esophagus with ingested contents and achalasia. Patient reports she followed with GI in the outpatient setting many years ago and was told there is not much that can be done to correct this. Patient continues with abdominal pain with general surgery following with no plans of surgical intervention and no endoscopy at this time. Patient did have a blood culture that was positive and growing Enterococcus with infectious disease following. Await repeat cultures to determine clearance of bacteremia. Encouraged increase activity as tolerated with sitting up more frequently in the chair. Review of systems: Constitutional: No reports of fatigue, fever, or chills Cardiovascular: No reports of chest pain or palpitations Respiratory: No reports of shortness of breath or cough GI: reports of nausea, no reports of vomiting, reports continued abdominal discomfort and tenderness : No reports of dysuria or retention Neurovascular: reports of generalized weakness All medications have been reviewed PHYSICAL EXAMINATION: GENERAL: The patient is alert and oriented x4, Well developed, elderly appearing, morbidly obese HEENT: Pupils are round and equally reacting to light. EOMI. no scleral icterus. No conjunctival pallor. Normocephalic, atraumatic. No pharyngeal erythema. No thyromegaly. CARDIOVASCULAR: S1 and S2 muffled PULMONARY: diminished breath sounds bilaterally with no wheezing or rhonchi noted. ABDOMEN: soft. tender on exam. Morbidly obese. non-distended, normoactive bowel sounds. No palpable organomegaly. MUSCULOSKELETAL: No joint swelling or deformity. EXTREMITIES: No cyanosis, clubbing, or pedal edema. NEUROLOGICAL: Gross neurological examination did not reveal any focal deficits. Diffuse weakness SKIN: No rashes. Assessment: Abdominal pain, chest pain with possible dilated esophagus with achalasia History of recent urinary tract infection, treated Bacteremia with culture showing Enterococcus and repeat cultures pending History of atrial fibrillation History of congestive heart failure, not in exacerbation History of DVT/PE Hypertension Hyperlipidemia Morbid obesity with a BMI of 42.3 GI prophylaxis DVT prophylaxis Full code Plan: Recommend to continue with current medications and management with general surgery and infectious disease following. General surgery recommending conservative management with no surgical intervention or endoscopic intervention planned at this time Patient did have positive blood cultures with Enterococcus and infectious disease following awaiting repeat cultures Replace electrolytes per protocol and will follow-up on repeat labs. Monitor CBC. Stable above 8 at this time with no active bleeding noted Encouraged increased activity as tolerated The impression and plan of care has been dictated by Nan Zhang, nurse practitioner as directed. Dr. Mickey MD I have performed a history and examination and MDM of this patient, discussed the same with the dictator, and agree with the dictator's assessment and plan as written ,documented as a scribe. Based on total visit time, I have performed more than 50% of the visit. Any additional findings or plans will be noted. Objective - Vital Signs Vital signs: Vital Signs Temp 98.6 F 10/15/24 07:00 Pulse 80 10/15/24 07:00 Resp 17 10/15/24 09:07 BP 128/74 10/15/24 07:00 Pulse Ox 96 10/15/24 07:00 FiO2 Intake & Output 10/14/24 10/15/24 10/15/24 18:59 06:59 18:59 Other: Voiding Method Toilet Toilet # Voids 3 3 - Labs CBC & Chem 7: 10/15/24 06:00 10/15/24 06:00 Labs: Abnormal Lab Results - Last 24 Hours (Table) 10/15/24 10/15/24 Range/Units 06:00 06:00 RBC 3.03 L (4.10-5.20) 10*6/uL Hgb 8.3 L D (12.0-15.0) g/dL Hct 27.4 L (37.2-46.3) % MCHC 30.3 L (32.0-37.0) g/dL RDW 17.2 H (11.5-14.5) % MPV 9.4 L (9.5-12.2) fL Immature Gran # 0.06 H (0.00-0.04) 10*3/uL Total Protein 5.5 L (6.2-8.2) g/dL Albumin 3.2 L (3.8-4.9) g/dL Albumin/Globulin Ratio 1.39 L (1.60-3.17) Ratio Microbiology - Last 24 Hours (Table) 10/12/24 22:05 Urine Culture - Final Urine,Clean Catch
[2024-10-16 10:10] LABS: Basophils # (A) 0.04 X 10*3/uL (0.00-0.10); Basophils % (A) 0.8 %; Eosinophils # (A) 0.09 X 10*3/uL (0.04-0.35); Eosinophils % (A) 1.8 %; HCT 28.5 % (37.2-46.3); HGB 8.2 g/dL (12.0-15.0); Immature Grans, Automated 1.60 %; Lymphocytes # (A) 0.92 X 10*3/uL (0.90-5.00); Lymphocytes % (A) 18.9 %; MCH 26.4 pg (27.0-32.0); MCHC 28.8 g/dL (32.0-37.0); MCV 91.6 FL (80.0-97.0); Monocytes # (A) 0.36 X 10*3/uL (0.20-1.00); Monocytes % (A) 7.4 %; NRBC Per 100 WBC 0 X 10*3/uL (0.00-0.01); Neutrophils # (A) 3.39 X 10*3/uL (1.80-7.70); Neutrophils % (A) 69.5 %; Platelet Count 208 X 10*3/uL (140-440); RBC 3.11 X 10*6/uL (4.10-5.20); RDW 17.5 % (11.5-14.5); WBC 4.88 X 10*3/uL (4.50-10.00)
--- NOTE | 2024-10-16 12:33 | P.PN ---
Subjective Progress Note Date: 10/14/24 Principal diagnosis: Reason for follow-up is Enterococcus faecalis bacteremia Patient is a 59-year-old female with a past medical history significant for hypertension hyperlipidemia osteoarthritis DVT atrial fibrillation recently treated in the outpatient setting from urgent care with the Bactrim DS for UTI presenting to [facility] ER subsequently with persistent symptoms she has been complaining of lower abdominal pain as well as shortness of breath, negative UA but blood cultures came back positive Enterococcus faecalis CT abdominal pelvis no acute intra-abdominal pathology On today's evaluation that is 10/14/2024, Patient is afebrile this morning pat ient denies having any chest pain shortness of breath or cough, the patient is currently on room air, patient complaining of some right-sided lower abdominal pain no diarrhea no nausea no vomiting. Patient white count is 5.0, creatinine 0.6 Objective - Vital Signs Vital signs: Vital Signs Temp 98.4 F 10/14/24 07:00 Pulse 103 H 10/14/24 07:00 Resp 18 10/14/24 07:00 BP 131/80 10/14/24 07:00 Pulse Ox 95 10/14/24 07:00 FiO2 Intake & Output 10/13/24 10/14/24 10/14/24 18:59 06:59 18:59 Intake Total 458 Balance 458 Intake: Oral 458 Other: Voiding Method Toilet Toilet Toilet # Voids 3 3 - Exam GENERAL DESCRIPTION: Middle-age female lying in bed in no distress RESPIRATORY SYSTEM: Unlabored breathing , decreased breath sounds at bases HEART: S1 S2 regular rate and rhythm , ABDOMEN: Soft , no tenderness EXTREMITIES: No edema feet - Labs CBC & Chem 7: 10/16/24 06:48 10/15/24 06:00 Labs: Abnormal Lab Results - Last 24 Hours (Table) 10/14/24 Range/Units 04:53 RBC 3.41 L (4.10-5.20) X 10*6/uL Hgb 9.2 L (12.0-15.0) g/dL Hct 32.5 L (37.2-46.3) % MCHC 28.3 L (32.0-37.0) g/dL RDW 17.8 H (11.5-14.5) % Immature Gran # 0.05 H (0.00-0.04) X 10*3/uL Microbiology - Last 24 Hours (Table) 10/12/24 23:04 Blood Culture Gram Stain - Preliminary Blood Blood Culture - Preliminary Molecular ID Assessment and Plan (1) Abdominal pain Current Visit: Yes Status: Acute Code(s): R10.9 - UNSPECIFIED ABDOMINAL PAIN SNOMED Code(s): 71611096 (2) Bacteremia Current Visit: Yes Status: Acute Code(s): R78.81 - BACTEREMIA SNOMED Code(s): 3085584 (3) Enterococcus faecalis infection Current Visit: Yes Status: Acute Code(s): A49.8 - OTHER BACTERIAL INFECTIONS OF UNSPECIFIED SITE SNOMED Code(s): 234666367 Plan: 1patient presented to hospital with lower abdominal pain to have urinary symptoms recently completed course of Bactrim DS for UTI patient did have a negative UA more likely indicating adequate treatment of underlying UTI she has been complaining some abdominal pain however the patient did have a CT abdominal pelvis that has been negative for any acute process 2patient did have a positive blood culture Enterococcus faecalis patient did have a negative UA CT abdominal pelvis done without contrast did not show acute intra-abdominal pathology blood culture has been repeated document clearance echocardiogram has been ordered antibiotic switched over to Unasyn 3 g every 6 hours Dictation was produced using [employer] dictation software. please excuse any grammatical, word or spelling errors. Time with Patient: Less than 30
--- NOTE | 2024-10-16 12:35 | P.PN ---
Subjective Progress Note Date: 10/15/24 Principal diagnosis: Reason for follow-up is Enterococcus faecalis bacteremia Patient is a 59-year-old female with a past medical history significant for hypertension hyperlipidemia osteoarthritis DVT atrial fibrillation recently treated in the outpatient setting from urgent care with the Bactrim DS for UTI presenting to [facility] ER subsequently with persistent symptoms she has been complaining of lower abdominal pain as well as shortness of breath, negative UA but blood cultures came back positive Enterococcus faecalis CT abdominal pelvis no acute intra-abdominal pathology On today's evaluation that is 10/15/2024,the patient denies any fever or any c hills, patient is breathing comfortably on room air, the patient denies chest pain shortness of breath and no significant cough, patient lower abdominal pain has decreased in intensity, no nausea vomiting or diarrhea. Patient white count is 5.25, creatinine 0.6 Objective - Vital Signs Vital signs: Vital Signs Temp 97.8 F 10/15/24 14:29 Pulse 68 10/15/24 14:29 Resp 18 10/15/24 14:29 BP 123/76 10/15/24 14:29 Pulse Ox 96 10/15/24 14:29 FiO2 Intake & Output 10/14/24 10/15/24 10/15/24 18:59 06:59 18:59 Other: Voiding Method Toilet Toilet # Voids 3 3 3 - Exam GENERAL DESCRIPTION: Middle-age female lying in bed in no distress RESPIRATORY SYSTEM: Unlabored breathing , decreased breath sounds at bases HEART: S1 S2 regular rate and rhythm , ABDOMEN: Soft , no tenderness EXTREMITIES: No edema feet - Labs CBC & Chem 7: 10/16/24 06:48 10/15/24 06:00 Labs: Abnormal Lab Results - Last 24 Hours (Table) 10/15/24 10/15/24 Range/Units 06:00 06:00 RBC 3.03 L (4.10-5.20) 10*6/uL Hgb 8.3 L D (12.0-15.0) g/dL Hct 27.4 L (37.2-46.3) % MCHC 30.3 L (32.0-37.0) g/dL RDW 17.2 H (11.5-14.5) % MPV 9.4 L (9.5-12.2) fL Immature Gran # 0.06 H (0.00-0.04) 10*3/uL Total Protein 5.5 L (6.2-8.2) g/dL Albumin 3.2 L (3.8-4.9) g/dL Albumin/Globulin Ratio 1.39 L (1.60-3.17) Ratio Microbiology - Last 24 Hours (Table) 10/12/24 23:04 Blood Culture Gram Stain - Preliminary Blood Blood Culture - Preliminary Enterococcus faecalis Molecular ID 10/12/24 22:05 Urine Culture - Final Urine,Clean Catch Assessment and Plan (1) Abdominal pain Current Visit: Yes Status: Acute Code(s): R10.9 - UNSPECIFIED ABDOMINAL PAIN SNOMED Code(s): 33258886 (2) Bacteremia Current Visit: Yes Status: Acute Code(s): R78.81 - BACTEREMIA SNOMED Code(s): 1284141 (3) Enterococcus faecalis infection Current Visit: Yes Status: Acute Code(s): A49.8 - OTHER BACTERIAL INFECTIONS OF UNSPECIFIED SITE SNOMED Code(s): 238201579 Plan: 1patient presented to hospital with lower abdominal pain to have urinary symptoms recently completed course of Bactrim DS for UTI patient did have a negative UA more likely indicating adequate treatment of underlying UTI she has been complaining some abdominal pain however the patient did have a CT abdominal pelvis that has been negative for any acute process 2patient did have a positive blood culture Enterococcus faecalis which is usually of urinary or GI source however patient did have a negative UA CT abdominal pelvis done without contrast did not show acute intra-abdominal pathology, will recommend repeating a CT abdominal pelvis with oral and IV contrast if the echocardiogram is negative 3patient to continue with Unasyn 3 g every 6 hours while waiting for workup to be completed Dictation was produced using [employer] dictation software. please excuse any grammatical, word or spelling errors. Time with Patient: Less than 30
--- NOTE | 2024-10-16 12:36 | P.PN ---
Subjective Progress Note Date: 10/16/24 Principal diagnosis: Reason for follow-up is Enterococcus faecalis bacteremia Patient is a 59-year-old female with a past medical history significant for hypertension hyperlipidemia osteoarthritis DVT atrial fibrillation recently treated in the outpatient setting from urgent care with the Bactrim DS for UTI presenting to [facility] ER subsequently with persistent symptoms she has been complaining of lower abdominal pain as well as shortness of breath, negative UA but blood cultures came back positive Enterococcus faecalis CT abdominal pelvis no acute intra-abdominal pathology On today's evaluation that is 10/16/2024 the patient continues to be afebrile the patient is breathing comfortably currently on room air no chest pain shortness of breath or cough no nausea vomiting her right-sided abdominal pain has decreased in intensity no diarrhea. Patient white count is 4.88, blood culture repeat currently pending did have repeat CT done again without any contrast did not show any acute intra-abdominal pathology, patient did have echo done report is currently pending Objective - Vital Signs Vital signs: Vital Signs Temp 98.7 F 10/16/24 07:20 Pulse 82 10/16/24 07:20 Resp 18 10/16/24 09:13 BP 145/59 10/16/24 07:20 Pulse Ox 95 10/16/24 07:20 FiO2 Intake & Output 10/15/24 10/16/24 10/16/24 18:59 06:59 18:59 Output Total 1 Balance -1 Output: Urine 1 Other: Voiding Method Toilet Toilet Toilet # Voids 3 1 # Bowel Movements 1 - Exam GENERAL DESCRIPTION: Middle-age female lying in bed in no distress RESPIRATORY SYSTEM: Unlabored breathing , decreased breath sounds at bases HEART: S1 S2 regular rate and rhythm , ABDOMEN: Soft , no tenderness EXTREMITIES: No edema feet - Labs CBC & Chem 7: 10/16/24 06:48 10/15/24 06:00 Labs: Abnormal Lab Results - Last 24 Hours (Table) 10/16/24 Range/Units 06:48 RBC 3.11 L (4.10-5.20) X 10*6/uL Hgb 8.2 L (12.0-15.0) g/dL Hct 28.5 L (37.2-46.3) % MCH 26.4 L (27.0-32.0) pg MCHC 28.8 L (32.0-37.0) g/dL RDW 17.5 H (11.5-14.5) % MPV 9.4 L (9.5-12.2) FL Immature Gran # 0.08 H (0.00-0.04) X 10*3/uL Microbiology - Last 24 Hours (Table) 10/12/24 23:04 Blood Culture Gram Stain - Preliminary Blood Blood Culture - Preliminary Enterococcus faecalis Molecular ID Assessment and Plan (1) Abdominal pain Current Visit: Yes Status: Acute Code(s): R10.9 - UNSPECIFIED ABDOMINAL PAIN SNOMED Code(s): 68493095 (2) Bacteremia Current Visit: Yes Status: Acute Code(s): R78.81 - BACTEREMIA SNOMED Code(s): 0849081 (3) Enterococcus faecalis infection Current Visit: Yes Status: Acute Code(s): A49.8 - OTHER BACTERIAL INFECTIONS OF UNSPECIFIED SITE SNOMED Code(s): 192677613 Plan: 1patient presented to hospital with lower abdominal pain to have urinary symptoms recently completed course of Bactrim DS for UTI patient did have a negative UA more likely indicating adequate treatment of underlying UTI she has been complaining some abdominal pain however the patient did have a CT abdominal pelvis that has been negative for any acute process 2patient did have a positive blood culture Enterococcus faecalis which is usually of urinary or GI source however patient did have a negative UA CT abdominal pelvis done without contrast did not show acute intra-abdominal p athology, unfortunately CT abdominal pelvis was done again without oral and IV contrast and still waiting for echocardiogram report to be available as of 10/16/2024 3patient to continue with Unasyn 3 g every 6 hours while waiting for workup to be completed Dictation was produced using [employer] dictation software. please excuse any grammatical, word or spelling errors. Time with Patient: Less than 30
--- NOTE | 2024-10-16 12:41 | P.PN ---
Subjective Progress Note Date: 10/16/24 SURGICAL PROGRESS NOTE CHIEF COMPLAINT: Abdominal pain HISTORY OF PRESENT ILLNESS: Patient sitting at bedside chair. She reports that her pain is improved. She is tolerating diet. She did have a bowel movement. She did have a positive blood culture. She is on antibiotics and infectious diseases following. Afebrile. WBC 4.88 Hgb 8.2 Patient seen and examined with Dr. Bunn PHYSICAL EXAM: VITAL SIGNS: Reviewed. GENERAL: Well-developed in no acute distress. ABDOMEN: Soft. Obese nondistended. NEUROLOGIC: Alert and oriented. Cranial nerves II through XII grossly intact. ASSESSMENT: 1. Abdominal pain 2. Ileus likely secondary to recent UTI 3. Chronic achalasia 4. Constipation PLAN: -No surgical intervention planned -Continue good bowel regimen at discharge Physician Ordnance Handler note has been reviewed by physician. Signing provider agrees with the documented findings, assessment, and plan of care. Objective - Vital Signs Vital signs: Vital Signs Temp 98.7 F 10/16/24 07:20 Pulse 82 10/16/24 07:20 Resp 18 10/16/24 09:13 BP 145/59 10/16/24 07:20 Pulse Ox 95 10/16/24 07:20 FiO2 Intake & Output 10/15/24 10/16/24 10/16/24 18:59 06:59 18:59 Output Total 1 Balance -1 Output: Urine 1 Other: Voiding Method Toilet Toilet Toilet # Voids 3 1 # Bowel Movements 1 - Labs CBC & Chem 7: 10/16/24 06:48 10/15/24 06:00 Labs: Abnormal Lab Results - Last 24 Hours (Table) 10/16/24 Range/Units 06:48 RBC 3.11 L (4.10-5.20) X 10*6/uL Hgb 8.2 L (12.0-15.0) g/dL Hct 28.5 L (37.2-46.3) % MCH 26.4 L (27.0-32.0) pg MCHC 28.8 L (32.0-37.0) g/dL RDW 17.5 H (11.5-14.5) % MPV 9.4 L (9.5-12.2) FL Immature Gran # 0.08 H (0.00-0.04) X 10*3/uL Microbiology - Last 24 Hours (Table) 10/12/24 23:04 Blood Culture Gram Stain - Preliminary Blood Blood Culture - Preliminary Enterococcus faecalis Molecular ID
[2024-10-17 07:25] VITALS: BMI 42.3
[2024-10-17 08:48] LABS: Basophils # (A) 0.02 X 10*3/uL (0.00-0.10); Basophils % (A) 0.4 %; Eosinophils # (A) 0.12 X 10*3/uL (0.04-0.35); Eosinophils % (A) 2.3 %; HCT 27.5 % (37.2-46.3); HGB 8.2 g/dL (12.0-15.0); Immature Grans, Automated 1.70 %; Lymphocytes # (A) 0.96 X 10*3/uL (0.90-5.00); Lymphocytes % (A) 18.1 %; MCH 27.3 pg (27.0-32.0); MCHC 29.8 g/dL (32.0-37.0); MCV 91.7 FL (80.0-97.0); Monocytes # (A) 0.33 X 10*3/uL (0.20-1.00); Monocytes % (A) 6.2 %; NRBC Per 100 WBC 0 X 10*3/uL (0.00-0.01); Neutrophils # (A) 3.78 X 10*3/uL (1.80-7.70); Neutrophils % (A) 71.3 %; Platelet Count 201 X 10*3/uL (140-440); RBC 3.00 X 10*6/uL (4.10-5.20); RDW 17.7 % (11.5-14.5); WBC 5.30 X 10*3/uL (4.50-10.00)
[2024-10-17 08:56] LABS: Anion Gap 9.50 mmol/L (4.00-12.00); BUN/Creat Ratio 17.00 Ratio (12.00-20.00); Blood Urea Nitrogen 8.5 mg/dL (9.0-27.0); Calcium 9.3 mg/dL (8.7-10.3); Carbon Dioxide 24.5 mmol/L (21.6-31.8); Chloride 106 mmol/L (96-109); Glucose 105 mg/dL (70-110); Magnesium 1.7 mg/dL (1.5-2.4); Potassium 3.7 mmol/L (3.5-5.5); Sodium 140 mmol/L (135-145)
--- NOTE | 2024-10-17 10:02 | P.PN ---
Subjective Progress Note Date: 10/16/24 This is a pleasant 59-year-old female who was recently admitted with abdominal pain noted to have a dilated esophagus with ingested contents and achalasia. Patient reports she followed with GI in the outpatient setting many years ago and was told there is not much that can be done to correct this. Patient continues with abdominal pain with general surgery following with no plans of surgical intervention and no endoscopy at this time. Patient did have a blood culture that was positive and growing Enterococcus with infectious disease following. Await repeat cultures to determine clearance of bacteremia. Encouraged increase activity as tolerated with sitting up more frequently in the chair. 10/16/2024 Patient is seen in follow-up today with no acute overnight issues. Patient continues to report some abdominal pain although feels she reports it is gas pains. Patient awaiting repeat cultures and is maintained on ampicillin with infectious disease following as initial blood culture showing Enterococcus faecalis. Awaiting repeat blood cultures to determine bacteremia clearance. General surgery has evaluated the patient with no surgical interventions planned recommending to continue with bowel regimen especially on discharge. Review of systems: Constitutional: No reports of fatigue, fever, or chills Cardiovascular: No reports of chest pain or palpitations Respiratory: No reports of shortness of breath or cough GI: reports of nausea, no reports of vomiting, reports continued abdominal discomfort and tenderness although feels a slightly improved : No reports of dysuria or retention Neurovascular: reports of generalized weakness All medications have been reviewed PHYSICAL EXAMINATION: GENERAL: The patient is alert and oriented x4, Well developed, elderly appearing, morbidly obese HEENT: Pupils are round and equally reacting to light. EOMI. no scleral icterus. No conjunctival pallor. Normocephalic, atraumatic. No pharyngeal erythema. No thyromegaly. CARDIOVASCULAR: S1 and S2 muffled PULMONARY: diminished breath sounds bilaterally with no wheezing or rhonchi noted. ABDOMEN: soft. Mildly tender on exam. Morbidly obese. non-distended, normoactive bowel sounds. No palpable organomegaly. MUSCULOSKELETAL: No joint swelling or deformity. EXTREMITIES: No cyanosis, clubbing, or pedal edema. NEUROLOGICAL: Gross neurological examination did not reveal any focal deficits. Diffuse weakness SKIN: No rashes. Assessment: Abdominal pain, likely secondary to acute ileus, improving chest pain possibly secondary to dilated esophagus with achalasia, ACS ruled out History of chronic achalasia History of recent urinary tract infection, treated Bacteremia with culture showing Enterococcus and repeat cultures pending History of atrial fibrillation History of congestive heart failure, not in exacerbation History of DVT/PE Hypertension Hyperlipidemia Morbid obesity with a BMI of 42.3 GI prophylaxis DVT prophylaxis Full code Plan: Recommend to continue with current medications and management with general surgery and infectious disease following. General surgery recommending conservative management with no surgical intervention or endoscopic intervention planned at this time Patient did have positive blood cultures with Enterococcus and infectious disease following awaiting repeat cultures. Will await repeat cultures to discuss with infectious disease regarding discharge planning Patient did have 2D echo ordered which remains pending at this time. Will inquire why report is still not read after being completed on 10/15 as this is also pending for discharge. Replace electrolytes per protocol and will follow-up on repeat labs. Monitor CBC. Stable above 8 at this time with no active bleeding noted Encouraged increased activity as tolerated Possible discharge planning in 24 hours if blood cultures have finalized and echo is reported to discuss further with infectious disease. The impression and plan of care has been dictated by Nan Zhang, nurse practitioner as directed. Dr. Mickey MD I have performed a history and examination and MDM of this patient, discussed the same with the dictator, and agree with the dictator's assessment and plan as written ,documented as a scribe. Based on total visit time, I have performed more than 50% of the visit. Any additional findings or plans will be noted. Objective - Vital Signs Vital signs: Vital Signs Temp 98.7 F 10/16/24 07:20 Pulse 82 10/16/24 07:20 Resp 18 10/16/24 09:13 BP 145/59 10/16/24 07:20 Pulse Ox 95 10/16/24 07:20 FiO2 Intake & Output 10/15/24 10/16/24 10/16/24 18:59 06:59 18:59 Output Total 1 Balance -1 Output: Urine 1 Other: Voiding Method Toilet Toilet Toilet # Voids 3 1 # Bowel Movements 1 - Labs CBC & Chem 7: 10/17/24 05:44 10/17/24 05:40 Labs: Abnormal Lab Results - Last 24 Hours (Table) 10/16/24 Range/Units 06:48 RBC 3.11 L (4.10-5.20) X 10*6/uL Hgb 8.2 L (12.0-15.0) g/dL Hct 28.5 L (37.2-46.3) % MCH 26.4 L (27.0-32.0) pg MCHC 28.8 L (32.0-37.0) g/dL RDW 17.5 H (11.5-14.5) % MPV 9.4 L (9.5-12.2) FL Immature Gran # 0.08 H (0.00-0.04) X 10*3/uL Microbiology - Last 24 Hours (Table) 10/12/24 23:04 Blood Culture Gram Stain - Preliminary Blood Blood Culture - Preliminary Enterococcus faecalis Molecular ID
--- NOTE | 2024-10-17 10:20 | P.PN ---
Subjective Progress Note Date: 10/17/24 Patient feels slightly better. On exam vital signs appear stable. Abdomen soft. Resolved UTI ileus. Patient will be discharged home per medical service. Objective - Vital Signs Vital signs: Vital Signs Temp 98.7 F 10/17/24 07:22 Pulse 85 10/17/24 07:22 Resp 18 10/17/24 07:22 BP 155/76 10/17/24 07:22 Pulse Ox 93 L 10/17/24 07:22 FiO2 Intake & Output 10/16/24 10/17/24 10/17/24 18:59 06:59 18:59 Intake Total 300 Balance 300 Weight 133.81 kg Intake: Oral 300 Other: Voiding Method Toilet Toilet # Voids 1 - Labs CBC & Chem 7: 10/17/24 05:44 10/17/24 05:40 Labs: Abnormal Lab Results - Last 24 Hours (Table) 10/17/24 10/17/24 Range/Units 05:40 05:44 RBC 3.00 L (4.10-5.20) X 10*6/uL Hgb 8.2 L (12.0-15.0) g/dL Hct 27.5 L (37.2-46.3) % MCHC 29.8 L (32.0-37.0) g/dL RDW 17.7 H (11.5-14.5) % Immature Gran # 0.09 H (0.00-0.04) X 10*3/uL BUN 8.5 L (9.0-27.0) mg/dL Creatinine 0.5 L (0.6-1.5) mg/dL Microbiology - Last 24 Hours (Table) 10/12/24 23:04 Blood Culture Gram Stain - Final Blood Blood Culture - Final Enterococcus faecalis Molecular ID 10/15/24 00:18 Blood Culture - Preliminary Blood
--- NOTE | 2024-10-17 11:13 | CA ---
Transthoracic Echo Report Name: Mercedes Bone Age: 59 Gender: F : 1965 Exam Date: 10/15/2024 08:06 Exam Location: [facility] Ht (in): 60 Wt (lb): 295 Ordering Physician: Navneet Jenkins MD Attending/Referring Phys: Driver License Reviewing Officer Silvia Romero RDCS Procedure CPT: Indications: bacteremia Cardiac Hx: Limited for Bacteremia Technical Quality: Fair Contrast 1: Total Dose (mL): Contrast 2: Total Dose (mL): MEASUREMENTS (Male / Female) Normal Values 2D ECHO LV Diastolic Diameter PLAX 5.2 cm 4.2 - 5.9 / 3.9 - 5.3 cm LV Systolic Diameter PLAX 3.5 cm IVS Diastolic Thickness 1.0 cm 0.6 - 1.0 / 0.6 - 0.9 cm LVPW Diastolic Thickness 1.0 cm 0.6 - 1.0 / 0.6 - 0.9 cm LV Relative Wall Thickness 0.4 RV Internal Dim ED PLAX 3.4 cm LA Systolic Diameter LX 4.4 cm 3.0 - 4.0 / 2.7 - 3.8 cm LV Diastolic Volume MOD BP 135.6 cm??? 67 - 155 / 56 - 104 cm??? LV Systolic Volume MOD BP 48.7 cm??? 22 - 58 / 19 - 49 cm??? LV Ejection Fraction MOD BP 64.1 % >= 55 % LV Cardiac Index MOD BP 2912.9 cm???/min???m??? LV Diastolic Volume MOD 4C 121.8 cm??? LV Systolic Volume MOD 4C 48.7 cm??? LV Ejection Fraction MOD 4C 60.0 % LV Cardiac Index MOD 4C 2450.4 cm???/min???m??? LV Diastolic Length 4C 8.1 cm LV Systolic Length 4C 6.5 cm LV Diastolic Volume MOD 2C 146.8 cm??? LV Systolic Volume MOD 2C 46.5 cm??? LV Ejection Fraction MOD 2C 68.3 % LV Cardiac Index MOD 2C 3360.7 cm???/min???m??? LV Diastolic Length 2C 8.4 cm LV Systolic Length 2C 6.9 cm DOPPLER AI Peak Velocity 398.5 cm/s AI Peak Gradient 63.5 mmHg AI Pressure Half Time 448.8 ms MV Peak Velocity 123.8 cm/s MV Peak Gradient 6.1 mmHg MV Mean Velocity 81.3 cm/s MV Mean Gradient 2.9 mmHg MV Velocity Time Integral 30.4 cm TR Peak Velocity 282.9 cm/s TR Peak Gradient 32.0 mmHg Right Atrial Pressure 20.0 mmHg Pulmonary Artery Systolic Pressu 52.0 mmHg Right Ventricular Systolic Press 52.0 mmHg FINDINGS Left Ventricle Left ventricular ejection fraction is estimated at 55-60 %. Normal left ventricular systolic function with no obvious regional wall motion abnormalities. Left ventricular cavity size normal. Right Ventricle Moderate pulmonary hypertension. Right ventricular systolic pressure estimated at 52 mm hg. Right Atrium Left Atrium Moderately increased left atrial diameter. Mitral Valve Mitral valve thickened. No mitral stenosis. Moderate mitral regurgitation. Aortic Valve Trileaflet aortic valve. Mobile vegetation on the aortic valve.no aortic stenosis. Mild to moderate aortic regurgitation. Tricuspid Valve Structurally normal tricuspid valve. No tricuspid stenosis. Mild tricuspid regurgitation. Pulmonic Valve Structurally normal pulmonic valve. No pulmonic stenosis. Trace pulmonic regurgitation. Pericardium No pericardial effusion. Aorta CONCLUSIONS 1. Normal left ventricular size and systolic function 2. Echogenic area noted on the aortic valve consistent with vegetation with mild to moderate aortic regurgitation 3. Moderate mitral with mild tricuspid regurgitation and moderate pulmonary hypertension Previewed by: Dr. Tamica Machado MD (Electronically Signed) Final Date: 15 October 2024 19:17
[2024-10-17] MEDS: AMPICILLIN 2,000 MG in SODIUM CHLORIDE 0.9% 100 ML IVPB SCH (15:55)
--- NOTE | 2024-10-17 16:08 | P.PN ---
Subjective Progress Note Date: 10/17/24 Principal diagnosis: Reason for follow-up is Enterococcus faecalis bacteremia Patient is a 59-year-old female with a past medical history significant for hypertension hyperlipidemia osteoarthritis DVT atrial fibrillation recently treated in the outpatient setting from urgent care with the Bactrim DS for UTI presenting to [facility] ER subsequently with persistent symptoms she has been complaining of lower abdominal pain as well as shortness of breath, negative UA but blood cultures came back positive Enterococcus faecalis CT abdominal pelvis no acute intra-abdominal pathology On today's evaluation that is 10/17/2024, the patient continues to be afebrile, the patient is on room air and breathing comfortably, the Pt denies having any chest pain or cough, the patient still complains of right lower quadrant abdominal pain but no nausea vomiting or diarrhea. Patient white count 5.30, creatinine 0.5 blood culture repeat has been negative echocardiogram considering vegetation to the aortic valve Objective - Vital Signs Vital signs: Vital Signs Temp 98.7 F 10/17/24 07:22 Pulse 85 10/17/24 07:22 Resp 18 10/17/24 07:22 BP 155/76 10/17/24 07:22 Pulse Ox 93 L 10/17/24 07:22 FiO2 Intake & Output 10/16/24 10/17/24 10/17/24 18:59 06:59 18:59 Intake Total 300 Balance 300 Weight 133.81 kg Intake: Oral 300 Other: Voiding Method Toilet Toilet Toilet # Voids 1 - Exam GENERAL DESCRIPTION: Middle-age female lying in bed in no distress RESPIRATORY SYSTEM: Unlabored breathing , decreased breath sounds at bases HEART: S1 S2 regular rate and rhythm , ABDOMEN: Soft , no tenderness EXTREMITIES: No edema feet - Labs CBC & Chem 7: 10/17/24 05:44 10/17/24 05:40 Labs: Abnormal Lab Results - Last 24 Hours (Table) 10/17/24 10/17/24 Range/Units 05:40 05:44 RBC 3.00 L (4.10-5.20) X 10*6/uL Hgb 8.2 L (12.0-15.0) g/dL Hct 27.5 L (37.2-46.3) % MCHC 29.8 L (32.0-37.0) g/dL RDW 17.7 H (11.5-14.5) % Immature Gran # 0.09 H (0.00-0.04) X 10*3/uL BUN 8.5 L (9.0-27.0) mg/dL Creatinine 0.5 L (0.6-1.5) mg/dL Microbiology - Last 24 Hours (Table) 10/12/24 23:04 Blood Culture Gram Stain - Final Blood Blood Culture - Final Enterococcus faecalis Molecular ID 10/15/24 00:18 Blood Culture - Preliminary Blood Assessment and Plan (1) Abdominal pain Current Visit: Yes Status: Acute Code(s): R10.9 - UNSPECIFIED ABDOMINAL PAIN SNOMED Code(s): 86187279 (2) Bacteremia Current Visit: Yes Status: Acute Code(s): R78.81 - BACTEREMIA SNOMED Code(s): 7715884 (3) Enterococcus faecalis infection Current Visit: Yes Status: Acute Code(s): A49.8 - OTHER BACTERIAL INFECTIONS OF UNSPECIFIED SITE SNOMED Code(s): 096544230 Plan: 1patient presented to hospital with lower abdominal pain to have urinary symptoms recently completed course of Bactrim DS for UTI patient did have a negative UA more likely indicating adequate treatment of underlying UTI she has been complaining some abdominal pain however the patient did have a CT abdominal pelvis that has been negative for any acute process 2patient did have a positive blood culture Enterococcus faecalis which is usually of urinary or GI source however patient did have a negative UA CT abdominal pelvis done without contrast did not show acute intra-abdominal pathology, unfortunately CT abdominal pelvis was done again without oral and IV contrast and still waiting for echocardiogram report to be available as of 10/16/2024 3patient echocardiogram finally completed and reported as possible vegetation to the aortic valve cardiology has been consulted for possible consideration for OG to see the integrity of the wall and mention no evidence of any perivalvular abscess that may need surgical intervention. 4discontinue Unasyn,Patient started on ampicillin and Rocephin and care has been discussed in detail with the MACHINE ROOM ENGINEER for admitting team Dictation was produced using [employer] dictation software. please excuse any grammatical, word or spelling errors. Time with Patient: Less than 30
[2024-10-18 09:57] LABS: Basophils # (A) 0.05 X 10*3/uL (0.00-0.10); Basophils % (A) 0.7 %; Eosinophils # (A) 0.05 X 10*3/uL (0.04-0.35); Eosinophils % (A) 0.7 %; HCT 28.7 % (37.2-46.3); HGB 8.5 g/dL (12.0-15.0); Immature Grans, Automated 1.60 %; Lymphocytes # (A) 0.89 X 10*3/uL (0.90-5.00); Lymphocytes % (A) 12.9 %; MCH 27.1 pg (27.0-32.0); MCHC 29.6 g/dL (32.0-37.0); MCV 91.4 FL (80.0-97.0); Monocytes # (A) 0.41 X 10*3/uL (0.20-1.00); Monocytes % (A) 5.9 %; NRBC Per 100 WBC 0 X 10*3/uL (0.00-0.01); Neutrophils # (A) 5.40 X 10*3/uL (1.80-7.70); Neutrophils % (A) 78.2 %; Platelet Count 235 X 10*3/uL (140-440); RBC 3.14 X 10*6/uL (4.10-5.20); RDW 17.6 % (11.5-14.5); WBC 6.91 X 10*3/uL (4.50-10.00)
--- NOTE | 2024-10-18 10:09 | P.PN ---
Subjective Progress Note Date: 10/18/24 Patient is stable. There is no acute changes. On exam vital signs appear stable. Abdomen soft. Resolved UTI ileus. Patient will continue receive supportive care. Objective - Vital Signs Vital signs: Vital Signs Temp 98.1 F 10/18/24 07:32 Pulse 93 10/18/24 07:32 Resp 18 10/18/24 07:32 BP 156/71 10/18/24 07:32 Pulse Ox 98 10/18/24 07:32 FiO2 Intake & Output 10/17/24 10/18/24 10/18/24 18:59 06:59 18:59 Intake Total 540 540 Balance 540 540 Weight 133.81 kg Intake: Oral 540 540 Other: Voiding Method Toilet Toilet # Voids 2 3 - Labs CBC & Chem 7: 10/18/24 03:30 10/17/24 05:40 Labs: Abnormal Lab Results - Last 24 Hours (Table) 10/18/24 Range/Units 03:30 RBC 3.14 L (4.10-5.20) X 10*6/uL Hgb 8.5 L (12.0-15.0) g/dL Hct 28.7 L (37.2-46.3) % MCHC 29.6 L (32.0-37.0) g/dL RDW 17.6 H (11.5-14.5) % Immature Gran # 0.11 H (0.00-0.04) X 10*3/uL Lymphocytes # 0.89 L (0.90-5.00) X 10*3/uL Microbiology - Last 24 Hours (Table) 10/15/24 00:18 Blood Culture - Preliminary Blood
[2024-10-18 10:11] LABS: ALT 54 U/L (8-44); AST 33 U/L (13-35); Albumin 3.1 g/dL (3.8-4.9); Albumin/Globulin Ratio 1.15 Ratio (1.60-3.17); Alkaline Phosphatase 85 U/L (41-126); Anion Gap 10.60 mmol/L (4.00-12.00); BUN/Creat Ratio 16.80 Ratio (12.00-20.00); Blood Urea Nitrogen 8.4 mg/dL (9.0-27.0); Calcium 9.3 mg/dL (8.7-10.3); Carbon Dioxide 23.4 mmol/L (21.6-31.8); Chloride 104 mmol/L (96-109); Globulin 2.7 g/dL (1.6-3.3); Glucose 105 mg/dL (70-110); Magnesium 1.6 mg/dL (1.5-2.4); Potassium 3.8 mmol/L (3.5-5.5); Sodium 138 mmol/L (135-145); Total Protein 5.8 g/dL (6.2-8.2)
--- NOTE | 2024-10-18 10:22 | P.PN ---
Subjective Progress Note Date: 10/17/24 This is a pleasant 59-year-old female who was recently admitted with abdominal pain noted to have a dilated esophagus with ingested contents and achalasia. Patient reports she followed with GI in the outpatient setting many years ago and was told there is not much that can be done to correct this. Patient continues with abdominal pain with general surgery following with no plans of surgical intervention and no endoscopy at this time. Patient did have a blood culture that was positive and growing Enterococcus with infectious disease following. Await repeat cultures to determine clearance of bacteremia. Encouraged increase activity as tolerated with sitting up more frequently in the chair. 10/16/2024 Patient is seen in follow-up today with no acute overnight issues. Patient continues to report some abdominal pain although feels she reports it is gas pains. Patient awaiting repeat cultures and is maintained on ampicillin with infectious disease following as initial blood culture showing Enterococcus faecalis. Awaiting repeat blood cultures to determine bacteremia clearance. General surgery has evaluated the patient with no surgical interventions planned recommending to continue with bowel regimen especially on discharge. 10/17/2024 Patient is seen in follow-up today continues to report abdominal pain. Echo report was resulted and there is some echogenic area noted on the aortic valve consistent with vegetation with mild to moderate aortic regurgitation and moderate pulmonary hypertension along with moderate mitral and mild tricuspid regurgitation noted. Patient previous blood cultures were positive showing Enterococcus and repeat cultures thus far have been negative. Will consult cardiology to discuss the need of possible OG for further evaluation. Patient to continue on IV antibiotics with infectious disease following at this time. Continue current as well as bowel regimen. Patient is afebrile with no reported chest pain or shortness of breath. Encouraging increasing activity as tolerated and getting up more frequently. Review of systems: Constitutional: No reports of fatigue, fever, or chills Cardiovascular: No reports of chest pain or palpitations Respiratory: No reports of shortness of breath or cough GI: reports of nausea, no reports of vomiting, reports continued abdominal discomfort and tenderness : No reports of dysuria or retention Neurovascular: reports of generalized weakness All medications have been reviewed PHYSICAL EXAMINATION: GENERAL: The patient is alert and oriented x4, Well developed, elderly appearing, morbidly obese HEENT: Pupils are round and equally reacting to light. EOMI. no scleral icterus. No conjunctival pallor. Normocephalic, atraumatic. No pharyngeal erythema. No thyromegaly. CARDIOVASCULAR: S1 and S2 muffled PULMONARY: diminished breath sounds bilaterally with no wheezing or rhonchi noted. ABDOMEN: soft. Mildly tender on exam. Morbidly obese. non-distended, normoactive bowel sounds. No palpable organomegaly. MUSCULOSKELETAL: No joint swelling or deformity. EXTREMITIES: No cyanosis, clubbing, or pedal edema. NEUROLOGICAL: Gross neurological examination did not reveal any focal deficits. Diffuse weakness SKIN: No rashes. Assessment: Abdominal pain, likely secondary to acute ileus, improving chest pain possibly secondary to dilated esophagus with achalasia, ACS ruled out History of chronic achalasia History of recent urinary tract infection, treated outpatient. Bacteremia with culture showing Enterococcus and repeat cultures pending Echo reported with concerns of an echogenic area in the aortic valve consistent with vegetation, normal EF History of atrial fibrillation with previous history of ablation History of congestive heart failure, not in exacerbation History of DVT/PE Hypertension Hyperlipidemia Morbid obesity with a BMI of 42.3 GI prophylaxis DVT prophylaxis Full code Plan: Recommend to continue with current medications and management with general taye randall and infectious disease following. General surgery recommending conservative management with no surgical intervention or endoscopic intervention planned at this time Patient did have positive blood cultures with Enterococcus and infectious disease following awaiting repeat cultures. Will await repeat cultures to discuss with infectious disease regarding discharge planning Patient did have 2D echo ordered which remains pending at this time. Will inquire why report is still not read after being completed on 10/15 as this is also pending for discharge. Echo was placed in the chart today 10/17/2024 and noted to have concerns of vegetation on the aortic valve. Will consult cardiology for possible OG Replace electrolytes per protocol and will follow-up on repeat labs. Monitor CBC. Stable above 8 at this time with no active bleeding noted Encouraged increased activity as tolerated Discussed the case with case management/social work as well as patient currently has no insurance. Apparently Medicaid has been initiated although unsure if it was submitted. Overall prognosis is guarded The impression and plan of care has been dictated by Nan Zhang, nurse practitioner as directed. Dr. Ines MD I have performed a history and examination and MDM of this patient, discussed the same with the dictator, and agree with the dictator's assessment and plan as written ,documented as a scribe. Based on total visit time, I have performed more than 50% of the visit. Any additional findings or plans will be noted. Objective - Vital Signs Vital signs: Vital Signs Temp 98.7 F 10/17/24 07:22 Pulse 85 10/17/24 07:22 Resp 18 10/17/24 07:22 BP 155/76 10/17/24 07:22 Pulse Ox 93 L 10/17/24 07:22 FiO2 Intake & Output 10/16/24 10/17/24 10/17/24 18:59 06:59 18:59 Intake Total 300 Balance 300 Weight 133.81 kg Intake: Oral 300 Other: Voiding Method Toilet Toilet # Voids 1 - Labs CBC & Chem 7: 10/18/24 03:30 10/18/24 03:24 Labs: Abnormal Lab Results - Last 24 Hours (Table) 10/16/24 10/17/24 10/17/24 Range/Units 06:48 05:40 05:44 RBC 3.11 L 3.00 L (4.10-5.20) X 10*6/uL Hgb 8.2 L 8.2 L (12.0-15.0) g/dL Hct 28.5 L 27.5 L (37.2-46.3) % MCH 26.4 L (27.0-32.0) pg MCHC 28.8 L 29.8 L (32.0-37.0) g/dL RDW 17.5 H 17.7 H (11.5-14.5) % MPV 9.4 L (9.5-12.2) FL Immature Gran # 0.08 H 0.09 H (0.00-0.04) X 10*3/uL BUN 8.5 L (9.0-27.0) mg/dL Creatinine 0.5 L (0.6-1.5) mg/dL Microbiology - Last 24 Hours (Table) 10/12/24 23:04 Blood Culture Gram Stain - Final Blood Blood Culture - Final Enterococcus faecalis Molecular ID 10/15/24 00:18 Blood Culture - Preliminary Blood
[2024-10-18] MEDS: LOSARTAN 50 MG TAB PO SCH (14:29)
[2024-10-18] MEDS: FUROSEMIDE 40 MG TAB PO SCH (14:29)
--- NOTE | 2024-10-18 14:34 | P.PN ---
Subjective Progress Note Date: 10/18/24 Principal diagnosis: Reason for follow-up is Enterococcus faecalis bacteremia Patient is a 59-year-old female with a past medical history significant for hypertension hyperlipidemia osteoarthritis DVT atrial fibrillation recently treated in the outpatient setting from urgent care with the Bactrim DS for UTI presenting to [facility] ER subsequently with persistent symptoms she has been complaining of lower abdominal pain as well as shortness of breath, negative UA but blood cultures came back positive Enterococcus faecalis CT abdominal pelvis no acute intra-abdominal pathology On today's evaluation that is 10/19/2023, patient did have a temperature of 98.1 F this morning and denies having any chills, patient is on 2 L nasal oxygen and breathing comfortably no chest pain or cough, the patient did not have any nausea vomiting abdominal pain or any diarrhea. Patient white count 6.91 blood culture repeat has been pending Objective - Vital Signs Vital signs: Vital Signs Temp 98.1 F 10/18/24 07:32 Pulse 93 10/18/24 07:32 Resp 18 10/18/24 07:32 BP 156/71 10/18/24 07:32 Pulse Ox 98 10/18/24 07:32 FiO2 Intake & Output 10/17/24 10/18/24 10/18/24 18:59 06:59 18:59 Intake Total 540 540 Balance 540 540 Weight 133.81 kg Intake: Oral 540 540 Other: Voiding Method Toilet Toilet Toilet # Voids 2 3 - Exam GENERAL DESCRIPTION: Middle-age female lying in bed in no distress RESPIRATORY SYSTEM: Unlabored breathing , decreased breath sounds at bases HEART: S1 S2 regular rate and rhythm , ABDOMEN: Soft , no tenderness EXTREMITIES: No edema feet - Labs CBC & Chem 7: 10/18/24 03:30 10/18/24 03:24 Labs: Abnormal Lab Results - Last 24 Hours (Table) 10/18/24 10/18/24 Range/Units 03:24 03:30 RBC 3.14 L (4.10-5.20) X 10*6/uL Hgb 8.5 L (12.0-15.0) g/dL Hct 28.7 L (37.2-46.3) % MCHC 29.6 L (32.0-37.0) g/dL RDW 17.6 H (11.5-14.5) % Immature Gran # 0.11 H (0.00-0.04) X 10*3/uL Lymphocytes # 0.89 L (0.90-5.00) X 10*3/uL BUN 8.4 L (9.0-27.0) mg/dL Creatinine 0.5 L (0.6-1.5) mg/dL ALT 54 H (8-44) U/L Total Protein 5.8 L (6.2-8.2) g/dL Albumin 3.1 L (3.8-4.9) g/dL Albumin/Globulin Ratio 1.15 L (1.60-3.17) Ratio Microbiology - Last 24 Hours (Table) 10/15/24 00:18 Blood Culture - Preliminary Blood Assessment and Plan (1) Abdominal pain Current Visit: Yes Status: Acute Code(s): R10.9 - UNSPECIFIED ABDOMINAL PAIN SNOMED Code(s): 58064475 (2) Bacteremia Current Visit: Yes Status: Acute Code(s): R78.81 - BACTEREMIA SNOMED Code(s): 1820186 (3) Enterococcus faecalis infection Current Visit: Yes Status: Acute Code(s): A49.8 - OTHER BACTERIAL INFECTIONS OF UNSPECIFIED SITE SNOMED Code(s): 546046215 Plan: 1patient presented to hospital with lower abdominal pain to have urinary symptoms recently completed course of Bactrim DS for UTI patient did have a negative UA more likely indicating adequate treatment of underlying UTI she has been complaining some abdominal pain however the patient did have a CT abdominal pelvis that has been negative for any acute process 2patient did have a positive blood culture Enterococcus faecalis which is usually of urinary or GI source however patient did have a negative UA CT abdominal pelvis done without contrast did not show acute intra-abdominal pathology, unfortunately CT abdominal pelvis was done again without oral and IV contrast and still waiting for echocardiogram report to be available as of 10/16/2024 3patient echocardiogram finally completed and reported as possible vegetation to the aortic valve cardiology has been consulted for possible consideration for OG to see the integrity of the wall and mention no evidence of any perivalvular abscess that may need surgical intervention await cardiology evaluation 4patient to continue with ampicillin and Rocephin and monitor clinical course closely Dictation was produced using [employer] software. please excuse any grammatical, word or spelling errors.
[2024-10-18] MEDS: IRON PS CMPLX/VIT B12/FA 1 EACH CAP PO SCH (15:05)
[2024-10-18] MEDS: FUROSEMIDE 20 MG TAB PO SCH (16:11)
--- NOTE | 2024-10-18 20:03 | P.PN ---
Subjective Progress Note Date: 10/18/24 This is a pleasant 59-year-old female who was recently admitted with abdominal pain noted to have a dilated esophagus with ingested contents and achalasia. Patient reports she followed with GI in the outpatient setting many years ago and was told there is not much that can be done to correct this. Patient continues with abdominal pain with general surgery following with no plans of surgical intervention and no endoscopy at this time. Patient did have a blood culture that was positive and growing Enterococcus with infectious disease following. Await repeat cultures to determine clearance of bacteremia. Encouraged increase activity as tolerated with sitting up more frequently in the chair. 10/16/2024 Patient is seen in follow-up today with no acute overnight issues. Patient continues to report some abdominal pain although feels she reports it is gas pains. Patient awaiting repeat cultures and is maintained on ampicillin with infectious disease following as initial blood culture showing Enterococcus faecalis. Awaiting repeat blood cultures to determine bacteremia clearance. General surgery has evaluated the patient with no surgical interventions planned recommending to continue with bowel regimen especially on discharge. 10/17/2024 Patient is seen in follow-up today continues to report abdominal pain. Echo report was resulted and there is some echogenic area noted on the aortic valve consistent with vegetation with mild to moderate aortic regurgitation and moderate pulmonary hypertension along with moderate mitral and mild tricuspid regurgitation noted. Patient previous blood cultures were positive showing Enterococcus and repeat cultures thus far have been negative. Will consult cardiology to discuss the need of possible OG for further evaluation. Patient to continue on IV antibiotics with infectious disease following at this time. Continue current as well as bowel regimen. Patient is afebrile with no reported chest pain or shortness of breath. Encouraging increasing activity as tolerated and getting up more frequently. 10/18/2024 Patient seen in follow-up today with no acute overnight issues noted. Patient to be evaluated by cardiology for possible OG and to further evaluate echo as patient is noted to have positive blood cultures and concerns of vegetation. Patient is continued on antibiotics with infectious disease following and repeat blood cultures remain negative thus far. Patient is afebrile and white count is normal with no reported chest pain or shortness of breath. Encouraged increase activity as tolerated. Will follow-up on repeat labs. Review of systems: Constitutional: No reports of fatigue, fever, or chills Cardiovascular: No reports of chest pain or palpitations Respiratory: No reports of shortness of breath or cough GI: reports of nausea, no reports of vomiting, reports continued abdominal discomfort and tenderness : No reports of dysuria or retention Neurovascular: reports of generalized weakness All medications have been reviewed PHYSICAL EXAMINATION: GENERAL: The patient is alert and oriented x4, Well developed, elderly appearing, morbidly obese HEENT: Pupils are round and equally reacting to light. EOMI. no scleral icterus. No conjunctival pallor. Normocephalic, atraumatic. No pharyngeal erythema. No thyromegaly. CARDIOVASCULAR: S1 and S2 muffled PULMONARY: diminished breath sounds bilaterally with no wheezing or rhonchi noted. ABDOMEN: soft. Mildly tender on exam. Morbidly obese. non-distended, normoactive bowel sounds. No palpable organomegaly. MUSCULOSKELETAL: No joint swelling or deformity. EXTREMITIES: No cyanosis, clubbing, or pedal edema. NEUROLOGICAL: Gross neurological examination did not reveal any focal deficits. Diffuse weakness SKIN: No rashes. Assessment: Abdominal pain, likely secondary to acute ileus, improving chest pain possibly secondary to dilated esophagus with achalasia, ACS ruled out History of chronic achalasia History of recent urinary tract infection, treated outpatient. Bacteremia with culture showing Enterococcus and repeat cultures pending Echo reported with concerns of an echogenic area in the aortic valve consistent with vegetation, normal EF History of atrial fibrillation with previous history of ablation History of congestive heart failure, not in exacerbation History of DVT/PE Hypertension Hyperlipidemia Morbid obesity with a BMI of 42.3 GI prophylaxis DVT prophylaxis Full code Plan: Recommend to continue with current medications and management with general surgery and infectious disease following. General surgery recommending conservative management with no surgical intervention or endoscopic intervention planned at this time Patient did have positive blood cultures with Enterococcus and infectious disease following awaiting repeat cultures. Will await repeat cultures to discuss with infectious disease regarding discharge planning. Repeat blood cultures negative for 72 hours thus far Patient did have 2D echo that was noted to have concerns of vegetation on the aortic valve. Awaiting cardiology evaluation for possible OG Replace electrolytes per protocol and will follow-up on repeat labs. Monitor C BC. Stable above 8 at this time with no active bleeding noted Encouraged increased activity as tolerated Discussed the case with case management/social work as well as patient currently has no insurance. Apparently Medicaid has been initiated although unsure if it was submitted. Overall prognosis is guarded The impression and plan of care has been dictated by Nan Zhang, nurse practitioner as directed. Dr. Ines MD I have performed a history and examination and MDM of this patient, discussed the same with the dictator, and agree with the dictator's assessment and plan a s written ,documented as a scribe. Based on total visit time, I have performed more than 50% of the visit. Any additional findings or plans will be noted. Objective - Vital Signs Vital signs: Vital Signs Temp 98.1 F 10/18/24 07:32 Pulse 93 10/18/24 07:32 Resp 18 10/18/24 07:32 BP 156/71 10/18/24 07:32 Pulse Ox 98 10/18/24 07:32 FiO2 Intake & Output 10/17/24 10/18/24 10/18/24 18:59 06:59 18:59 Intake Total 540 540 Balance 540 540 Weight 133.81 kg Intake: Oral 540 540 Other: Voiding Method Toilet Toilet # Voids 2 3 - Labs CBC & Chem 7: 10/18/24 03:30 10/18/24 03:24 Labs: Abnormal Lab Results - Last 24 Hours (Table) 10/18/24 10/18/24 Range/Units 03:24 03:30 RBC 3.14 L (4.10-5.20) X 10*6/uL Hgb 8.5 L (12.0-15.0) g/dL Hct 28.7 L (37.2-46.3) % MCHC 29.6 L (32.0-37.0) g/dL RDW 17.6 H (11.5-14.5) % Immature Gran # 0.11 H (0.00-0.04) X 10*3/uL Lymphocytes # 0.89 L (0.90-5.00) X 10*3/uL BUN 8.4 L (9.0-27.0) mg/dL Creatinine 0.5 L (0.6-1.5) mg/dL ALT 54 H (8-44) U/L Total Protein 5.8 L (6.2-8.2) g/dL Albumin 3.1 L (3.8-4.9) g/dL Albumin/Globulin Ratio 1.15 L (1.60-3.17) Ratio Microbiology - Last 24 Hours (Table) 10/15/24 00:18 Blood Culture - Preliminary Blood
[2024-10-18] MEDS ORDERED: MIDAZOLAM 2 MG/2 ML VIAL IV PRN (21:13)
--- NOTE | 2024-10-18 21:20 | P.CRDCN ---
History of Present Illness Consult date: 10/18/24 History of present illness: HISTORY OF PRESENTING ILLNESS: Known to Dr. Berry. Past medical history of hypertension obesity type 2 diabetes dyslipidemia. History of DVT PE on anticoagulation with Eliquis. 08/2024 she underwent PVI ablation and left atrial septal ablation with Dr. Berry for atrial fibrillation. 1 week later she presented to the hospital because of palpitation generalized weakness and fatigue. She was noticed to be in atrial flutter with RVR. She converted out of it spontaneously and since then it appears that she is maintaining sinus rhythm. Since that hospital admission she has had 2 hospital visits for UTI. This time she presented because of abdominal pain. She was found to have possible UTI and achalasia this time she is noticed to have Enterococcus faecalis bacteremia. She had echocardiogram done which showed possible concerns of vegetation on aortic valve with moderate regurgitation. She also was noted to have moderate mitral regurgitation and moderate tricuspid regurgitation Admission Vitals: BP 147/82, heart rate 93 bpm Admission Labs: Hb 8.5, BUN 8, creatinine 0.5 Admission EKG: Sinus tachycardia heart rate 100 bpm Imaging: CT abdomen dilated esophagus with concerns of achalasia. Colonic diverticulosis Prior cardiac testing: Echo from 10/15/2024 shows normal LVEF, echogenic area noticed on aortic valve consistent with possible vegetation, moderate aortic regurgitation, moderate mitral and tricuspid regurgitation, moderate pulm hypertension REVIEW OF SYSTEMS: 14 point review of system is negative except what is mentioned above in HPI. PHYSICAL EXAMINATION: Neck: Brisk carotid upstroke, no jugular venous distention. Lungs: Clear to auscultation. Heart: Regular rate and rhythm, S1-S2, , no murmur or rub. Abdomen: Soft nontender, positive bowel sounds. Extremities: No edema, intact distal pulses. Neuro: Alert, oritented, no focal deficits. Detailed neuro exam was not performed. 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 Post A-fib ablation 1 week later she had atrial flutter with RVR but spontaneously converted to sinus. Since then she has been maintaining sinus. # Chronic HFpEF PLAN: Plan for OG. For Sunday. N.p.o. after Sunday night Apparently patient had a Lexiscan stress test outpatient which was abnormal and she is scheduled for a heart catheterization procedure. Details of this is unknown. Find out on Sunday by obtaining office record Eliquis 5 twice daily, Lasix 40 mg daily, losartan 50 mg daily, metoprolol 50 mg daily Not choosing SGLT2 because of recent UTI Ck Villafana MD, [facility] [place] Thank you for allowing [facility] to participate in this patient's care. Feel free to reach out in case of any followup questions. Past Medical History Past Medical History: Atrial Fibrillation, Heart Failure, Deep Vein Thrombosis (DVT), GERD/Reflux, Hyperlipidemia, Hypertension, Osteoarthritis (OA), Pulmonary Embolus (PE) Additional Past Medical History / Comment(s): DVT years ago after taking control, achalasia, restrictive lung disease. Hx Pneumonia September 2017. October 2017 DVT and PE with poor liver and kidney function at that time. Bilateral leg swelling at times, wears compression stockings to work, border line diabetic. History of Any Multi-Drug Resistant Organisms: None Reported Past Surgical History: Ablation, Cholecystectomy, Heart Catheterization, Orthopedic Surgery Additional Past Surgical History / Comment(s): BILAT [facility],STATES ESOPHAGUS WAS TOO TIGHT AND THEY REMOVED HER RIB AND DID HILAR PROCEDURE, eye surgery as a baby. COLONOSCOPY/EGD Past Anesthesia/Blood Transfusion Reactions: No Reported Reaction Past Psychological History: Anxiety, Depression Smoking Status: Former smoker Past Alcohol Use History: Occasional Past Drug Use History: None Reported - Past Family History Father Family Medical History: Cancer Additional Family Medical History / Comment(s): PROSTATE CANCER Sister(s) Family Medical History: Cancer Additional Family Medical History / Comment(s): Skin cancer. Medications and Allergies Home Medications Medication Instructions Recorded Confirmed Type Apixaban [Eliquis] 5 mg PO BID #60 tab 11/17/17 10/12/24 Rx DULoxetine HCL [Cymbalta] 60 mg PO BID 03/02/21 10/12/24 History Albuterol Nebulized [Ventolin 2.5 mg INHALATION RT-TID PRN 09/02/24 10/12/24 His tory Nebulized] Atorvastatin [Lipitor] 20 mg PO DAILY 09/02/24 10/12/24 History Metoprolol Tartrate [Lopressor] 50 mg PO BID #60 tab 05/07/25 06/15/25 Rx Losartan [Cozaar] 50 mg PO DAILY #30 tab 09/08/24 10/12/24 Rx Furosemide [Lasix] 20 mg PO DAILY 10/12/24 10/12/24 History Allergies Allergy/AdvReac Type Severity Reaction Status Date / Time No Known Allergies Allergy Verified 10/12/24 19:27 Physical Exam Vitals: Vital Signs Temp Pulse Resp BP BP Pulse Ox 10/18/24 19:10 97.6 F 76 17 116/66 99 10/18/24 14:00 99.0 F 74 16 144/68 98 10/18/24 07:32 98.1 F 93 18 156/71 98 10/18/24 02:00 98.4 F 109 H 18 147/82 91 L Intake and Output 10/18/24 10/18/24 10/18/24 06:59 14:59 22:59 Intake Total 540 Balance 540 Intake: Oral 540 Other: Voiding Method Toilet # Voids 3 2 Results 10/18/24 03:30 10/18/24 03:24 Cardiac Enzymes 10/18/24 Range/Units 03:24 AST 33 (13-35) U/L CBC 10/18/24 Range/Units 03:30 WBC 6.91 (4.50-10.00) X 10*3/uL RBC 3.14 L (4.10-5.20) X 10*6/uL Hgb 8.5 L (12.0-15.0) g/dL Hct 28.7 L (37.2-46.3) % Plt Count 235 (140-440) X 10*3/uL Comprehensive Metabolic Panel 10/18/24 Range/Units 03:24 Sodium 138 (135-145) mmol/L Potassium 3.8 (3.5-5.5) mmol/L Chloride 104 (96-109) mmol/L Carbon Dioxide 23.4 (21.6-31.8) mmol/L BUN 8.4 L (9.0-27.0) mg/dL Creatinine 0.5 L (0.6-1.5) mg/dL Glucose 105 (70-110) mg/dL Calcium 9.3 (8.7-10.3) mg/dL AST 33 (13-35) U/L ALT 54 H (8-44) U/L Alkaline Phosphatase 85 (41-126) U/L Total Protein 5.8 L (6.2-8.2) g/dL Albumin 3.1 L (3.8-4.9) g/dL Current Medications Generic Name Dose Route Start Last Admin Trade Name Freq PRN Reason Stop Dose Admin Acetaminophen 650 mg 10/17/24 21:06 Acetaminophen Tab 325 Mg Tab PO Q6HR PRN Mild Pain or Fever > 100.5 Apixaban 5 mg 10/14/24 09:00 10/18/24 14:29 Apixaban 5 Mg Tab PO 5 mg BID HYACINTH Administration Protocol Benzocaine 1 each 10/20/24 05:00 Benzocaine Higdon 1 Each MM TID PRN Skin Irritation Duloxetine HCl 60 mg 10/14/24 09:00 10/18/24 09:16 Duloxetine Hcl 60 Mg Capsule.Dr PO 60 mg BID HYACINTH Administration Fentanyl Citrate 50 mcg 10/18/24 21:13 Fentanyl (Pf) 50 Mcg/Ml 2 Ml Amp IVP 10/19/24 15:13 ONCE PRN Pre-Op Furosemide 40 mg 10/18/24 14:15 10/18/24 14:29 Furosemide 40 Mg Tab PO 40 mg DAILY HYACINTH Administration Hydralazine HCl 10 mg 10/12/24 22:46 Hydralazine Hcl 20 Mg/Ml 1 Ml Vial IVP Q4HR PRN Blood Pressure - High Hydromorphone HCl 0.5 mg 10/12/24 22:46 10/18/24 21:00 Hydromorphone 0.5 Mg/0.5 Ml Syringe IVP 0.5 mg Q3HR PRN Administration Severe Pain (Scale 7 to 10) Ampicillin Sodium 2,000 mg/ 100 mls @ 200 mls/hr 10/17/24 16:00 10/18/24 17:32 Sodium Chloride IVPB 200 mls/hr Q4HR HYACINTH Administration Protocol Ceftriaxone Sodium 2 gm/ 50 mls @ 100 mls/hr 10/17/24 13:00 10/18/24 12:32 Sodium Chloride IVPB 100 mls/hr Q12HR@0000,1200 HYACINTH Administration Protocol Losartan Potassium 50 mg 10/18/24 14:00 10/18/24 14:29 Losartan 50 Mg Tab PO 50 mg DAILY HYACINTH Administration Metoprolol Tartrate 50 mg 10/14/24 09:00 10/18/24 09:16 Metoprolol Tartrate 50 Mg Tab PO 50 mg BID HYACINTH Administration Midazolam HCl 1 mg 10/20/24 05:00 Midazolam 2 Mg/2 Ml Vial IV 10/20/24 23:59 ONCE PRN Pre-Op Naloxone HCl 0.2 mg 10/12/24 19:28 Naloxone 0.4 Mg/Ml 1 Ml Vial IV Q2M PRN Opioid Reversal Pantoprazole Sodium 40 mg 10/12/24 23:00 10/18/24 09:16 Pantoprazole 40 Mg/10 Ml Vial IVP 40 mg BID HYACINTH Administration Polysaccharide Iron Complex 1 each 10/18/24 14:15 10/18/24 15:05 Iron Ps Cmplx/Vit B12/Fa 1 Each Cap PO 1 each DAILY HYACINTH Administration Intake and Output 10/18/24 10/18/24 10/18/24 06:59 14:59 22:59 Intake Total 540 Balance 540 Intake: Oral 540 Other: Voiding Method Toilet # Voids 3 2 10/18/24 03:30 10/18/24 03:24
[2024-10-19 07:59] LABS: African American GFR (CKD) >90 (>60 ml/min/1.73 sqM); Anion Gap 7 mmol/L; Blood Urea Nitrogen 8 mg/dL (7-17); Calcium 9.7 mg/dL (8.4-10.2); Carbon Dioxide 31 mmol/L (22-30); Chloride 103 mmol/L (98-107); Glucose 115 mg/dL (74-99); Magnesium 1.6 mg/dL (1.6-2.3); Non-African American GFR(CKD) >90 (>60 ml/min/1.73 sqM); Potassium 4.0 mmol/L (3.5-5.1); Sodium 141 mmol/L (137-145)
--- NOTE | 2024-10-19 09:08 | P.PN ---
Subjective Progress Note Date: 10/19/24 Patient feels better. She denies any abdominal pain. She is tolerating diet and having bowel movements. On exam vital signs appear stable. Abdomen soft. Resolved UTI ileus. Patient will be evaluated by cardiology services tomorrow. Objective - Vital Signs Vital signs: Vital Signs Temp 98.2 F 10/19/24 07:44 Pulse 83 10/19/24 07:44 Resp 17 10/19/24 07:44 BP 169/80 10/19/24 07:44 Pulse Ox 98 10/19/24 07:44 FiO2 Intake & Output 10/18/24 10/19/24 10/19/24 18:59 06:59 18:59 Intake Total 540 Balance 540 Intake: Oral 540 Other: Voiding Method Toilet Toilet # Voids 2 3 - Labs CBC & Chem 7: 10/18/24 03:30 10/19/24 07:00 Labs: Abnormal Lab Results - Last 24 Hours (Table) 10/18/24 10/18/24 10/19/24 Range/Units 03:24 03:30 07:00 RBC 3.14 L (4.10-5.20) X 10*6/uL Hgb 8.5 L (12.0-15.0) g/dL Hct 28.7 L (37.2-46.3) % MCHC 29.6 L (32.0-37.0) g/dL RDW 17.6 H (11.5-14.5) % Immature Gran # 0.11 H (0.00-0.04) X 10*3/uL Lymphocytes # 0.89 L (0.90-5.00) X 10*3/uL Carbon Dioxide 31 H (22-30) mmol/L BUN 8.4 L (9.0-27.0) mg/dL Creatinine 0.5 L (0.6-1.5) mg/dL Glucose 115 H (74-99) mg/dL ALT 54 H (8-44) U/L Total Protein 5.8 L (6.2-8.2) g/dL Albumin 3.1 L (3.8-4.9) g/dL Albumin/Globulin Ratio 1.15 L (1.60-3.17) Ratio Microbiology - Last 24 Hours (Table) 10/15/24 00:18 Blood Culture - Preliminary Blood
--- NOTE | 2024-10-19 10:47 | P.PN ---
Subjective Progress Note Date: 10/19/24 This is a pleasant 59-year-old female who was recently admitted with abdominal pain noted to have a dilated esophagus with ingested contents and achalasia. Patient reports she followed with GI in the outpatient setting many years ago and was told there is not much that can be done to correct this. Patient continues with abdominal pain with general surgery following with no plans of surgical intervention and no endoscopy at this time. Patient did have a blood culture that was positive and growing Enterococcus with infectious disease following. Await repeat cultures to determine clearance of bacteremia. Encouraged increase activity as tolerated with sitting up more frequently in the chair. 10/16/2024 Patient is seen in follow-up today with no acute overnight issues. Patient continues to report some abdominal pain although feels she reports it is gas pains. Patient awaiting repeat cultures and is maintained on ampicillin with infectious disease following as initial blood culture showing Enterococcus faecalis. Awaiting repeat blood cultures to determine bacteremia clearance. General surgery has evaluated the patient with no surgical interventions planned recommending to continue with bowel regimen especially on discharge. 10/17/2024 Patient is seen in follow-up today continues to report abdominal pain. Echo report was resulted and there is some echogenic area noted on the aortic valve consistent with vegetation with mild to moderate aortic regurgitation and moderate pulmonary hypertension along with moderate mitral and mild tricuspid regurgitation noted. Patient previous blood cultures were positive showing Enterococcus and repeat cultures thus far have been negative. Will consult cardiology to discuss the need of possible OG for further evaluation. Patient to continue on IV antibiotics with infectious disease following at this time. Continue current as well as bowel regimen. Patient is afebrile with no reported chest pain or shortness of breath. Encouraging increasing activity as tolerated and getting up more frequently. 10/18/2024 Patient seen in follow-up today with no acute overnight issues noted. Patient to be evaluated by cardiology for possible OG and to further evaluate echo as patient is noted to have positive blood cultures and concerns of vegetation. Patient is continued on antibiotics with infectious disease following and repeat blood cultures remain negative thus far. Patient is afebrile and white count is normal with no reported chest pain or shortness of breath. Encouraged increase activity as tolerated. Will follow-up on repeat labs. 10/19/2024 Patient is seen in follow-up today reporting some nausea and will add Zofran and continue with Protonix. Patient was evaluated by cardiology awaiting to obtain records from previous stress test and/or cardiac catheterization as patient recently underwent ablation in the outpatient setting also on previous admissions. Patient tentatively plan for OG on Sunday with cardiology. Repeat cultures remain negative thus far with infectious disease following maintained on current antibiotics and will continue. Encouraged increased activity as tolerated and will follow-up on repeat labs. To inquire with case management/social work on Sunday regarding treatment plan moving forward and if patient is any further on Medicaid application as patient currently has no insurance. Review of systems: Constitutional: No reports of fatigue, fever, or chills Cardiovascular: No reports of chest pain or palpitations Respiratory: No reports of shortness of breath or cough GI: reports of nausea, no reports of vomiting, reports continued abdominal discomfort and tenderness : No reports of dysuria or retention Neurovascular: reports of generalized weakness All medications have been reviewed PHYSICAL EXAMINATION: GENERAL: The patient is alert and oriented x4, Well developed, elderly appearing, morbidly obese HEENT: Pupils are round and equally reacting to light. EOMI. no scleral icterus. No conjunctival pallor. Normocephalic, atraumatic. No pharyngeal erythema. No thyromegaly. CARDIOVASCULAR: S1 and S2 muffled PULMONARY: diminished breath sounds bilaterally with no wheezing or rhonchi noted. ABDOMEN: soft. Mildly tender on exam. Morbidly obese. non-distended, normoactive bowel sounds. No palpable organomegaly. MUSCULOSKELETAL: No joint swelling or deformity. EXTREMITIES: No cyanosis, clubbing, or pedal edema. NEUROLOGICAL: Gross neurological examination did not reveal any focal deficits. Diffuse weakness SKIN: No rashes. Assessment: Abdominal pain, likely secondary to acute ileus, improving, surgery evaluated with no plans of intervention at this time recommending conservative management chest pain possibly secondary to dilated esophagus with achalasia, ACS ruled out History of chronic achalasia History of recent urinary tract infection, treated outpatient. Bacteremia with culture showing Enterococcus and repeat cultures pending Echo reported with concerns of an echogenic area in the aortic valve consistent with vegetation, normal EF, tentatively scheduled for OG on 10/20/2024 with cardiology History of atrial fibrillation with previous history of ablation History of congestive heart failure, not in exacerbation History of DVT/PE Hypertension Hyperlipidemia Morbid obesity with a BMI of 42.3 GI prophylaxis DVT prophylaxis Full code Plan: Recommend to continue with current medications and management with general surg tiffany and infectious disease following. General surgery recommending conservative management with no surgical intervention or endoscopic intervention planned at this time Patient did have positive blood cultures with Enterococcus and infectious disease following awaiting repeat cultures. Will await repeat cultures to discuss with infectious disease regarding discharge planning. Repeat blood cultures negative for 72 hours thus far Patient did have 2D echo that was noted to have concerns of vegetation on the aortic valve. Cardiology has evaluated the patient and working on obtaining records from previous stress test and/or cardiac catheterization and tentatively scheduled for OG on 10/20/2024 Replace electrolytes per protocol and will follow-up on repeat labs. Monitor CBC. Stable above 8 at this time with no active bleeding noted Encouraged increased activity as tolerated Patient is reporting some nausea with no vomiting, will add supportive care and Zofran as needed Discussed the case with case management/social work as well as patient currently has no insurance. Apparently Medicaid has been initiated although unsure if it was submitted. Overall prognosis is guarded The impression and plan of care has been dictated by Nan Zhang, nurse practitioner as directed. Dr. nIes MD I have performed a history and examination and MDM of this patient, discussed th e same with the dictator, and agree with the dictator's assessment and plan as written ,documented as a scribe. Based on total visit time, I have performed more than 50% of the visit. Any additional findings or plans will be noted. Objective - Vital Signs Vital signs: Vital Signs Temp 98.2 F 10/19/24 07:44 Pulse 83 10/19/24 07:44 Resp 17 10/19/24 07:44 BP 169/80 10/19/24 07:44 Pulse Ox 98 10/19/24 07:44 FiO2 Intake & Output 10/18/24 10/19/24 10/19/24 18:59 06:59 18:59 Intake Total 540 Balance 540 Intake: Oral 540 Other: Voiding Method Toilet Toilet # Voids 2 3 - Labs CBC & Chem 7: 10/18/24 03:30 10/19/24 07:00 Labs: Abnormal Lab Results - Last 24 Hours (Table) 10/19/24 Range/Units 07:00 Carbon Dioxide 31 H (22-30) mmol/L Glucose 115 H (74-99) mg/dL Microbiology - Last 24 Hours (Table) 10/15/24 00:18 Blood Culture - Preliminary Blood
--- NOTE | 2024-10-19 14:25 | P.PN ---
Subjective Progress Note Date: 10/19/24 HISTORY OF PRESENTING ILLNESS: Known to Dr. Berry. Past medical history of hypertension obesity type 2 diabetes dyslipidemia. History of DVT PE on anticoagulation with Eliquis. 08/2024 she underwent PVI ablation and left atrial septal ablation with Dr. Berry for atrial fibrillation. 1 week later she presented to the hospital because of palpitation generalized weakness and fatigue. She was noticed to be in atrial flutter with RVR. She converted out of it spontaneously and since then it appears that she is maintaining sinus rhythm. Since that hospital admission she has had 2 hospital visits for UTI. This time she presented because of abdominal pain. She was found to have possible UTI and achalasia this time she is noticed to have Enterococcus faecalis bacteremia. She had echocardiogram done which showed possible concerns of vegetation on aortic valve with moderate regurgitation. She also was noted to have moderate mitral regurgitation and moderate tricuspid regurgitation Admission Vitals: BP 147/82, heart rate 93 bpm Admission Labs: Hb 8.5, BUN 8, creatinine 0.5 Admission EKG: Sinus tachycardia heart rate 100 bpm Imaging: CT abdomen dilated esophagus with concerns of achalasia. Colonic diverticulosis Prior cardiac testing: Echo from 10/15/2024 shows normal LVEF, echogenic area noticed on aortic valve consistent with possible vegetation, moderate aortic regurgitation, moderate mitral and tricuspid regurgitation, moderate pulm hypertension Progress note 10/19/2024 Vitals are reviewed and blood pressure and heart rate are well-controlled. Sinus rhythm Tolerating Lasix and antihypertensive medications we added yesterday. PHYSICAL EXAMINATION: Neck: Brisk carotid upstroke, no jugular venous distention. Lungs: Clear to auscultation. Heart: Regular rate and rhythm, S1-S2, , no murmur or rub. Abdomen: Soft nontender, positive bowel sounds. Extremities: No edema, intact distal pulses. Neuro: Alert, oritented, no focal deficits. Detailed neuro exam was not perform ed. 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 Post A-fib ablation 1 week later she had atrial flutter with RVR but spontaneously converted to sinus. Since then she has been maintaining sinus. # Chronic HFpEF PLAN: Plan for OG For Sunday. N.p.o. after Sunday night. Verbal consent is obtained Apparently patient had a Lexiscan stress test outpatient which was abnormal and she is scheduled for a heart catheterization procedure. Details of this is unknown. Find out on Sunday by obtaining office record Eliquis 5 twice daily, Lasix 40 mg daily, losartan 50 mg daily, metoprolol 50 mg daily Not choosing SGLT2 because of recent UTI Objective - Vital Signs Vital signs: Vital Signs Temp 98.2 F 10/19/24 14:00 Pulse 66 10/19/24 14:00 Resp 16 10/19/24 14:00 BP 138/72 10/19/24 14:00 Pulse Ox 100 10/19/24 14:00 FiO2 Intake & Output 10/18/24 10/19/24 10/19/24 18:59 06:59 18:59 Intake Total 540 Balance 540 Intake: Oral 540 Other: Voiding Method Toilet Toilet Toilet # Voids 2 3 - Labs CBC & Chem 7: 10/18/24 03:30 10/19/24 07:00 Labs: Abnormal Lab Results - Last 24 Hours (Table) 10/19/24 Range/Units 07:00 Carbon Dioxide 31 H (22-30) mmol/L Glucose 115 H (74-99) mg/dL Microbiology - Last 24 Hours (Table) 10/15/24 00:18 Blood Culture - Preliminary Blood
--- NOTE | 2024-10-19 14:53 | P.PN ---
Subjective Progress Note Date: 10/19/24 Principal diagnosis: Reason for follow-up is Enterococcus faecalis bacteremia Patient is a 59-year-old female with a past medical history significant for hypertension hyperlipidemia osteoarthritis DVT atrial fibrillation recently treated in the outpatient setting from urgent care with the [facility] for UTI presenting to [facility] ER subsequently with persistent symptoms she has been complaining of lower abdominal pain as well as shortness of breath, negative UA but blood cultures came back positive Enterococcus faecalis CT abdominal pelvis no acute intra-abdominal pathology On today's evaluation that is 10/19/2024, Patient is afebrile patient is curre ntly on 2 L nasal cannula oxygen and denies having any shortness of breath, the patient denies any chest pain or cough, the patient denies any nausea vomiting did not have any abdominal pain and no diarrhea. Patient did have a creatinine 0.52 no CBC was done today blood culture repeat has been negative Objective - Vital Signs Vital signs: Vital Signs Temp 98.2 F 10/19/24 14:00 Pulse 66 10/19/24 14:00 Resp 16 10/19/24 14:00 BP 138/72 10/19/24 14:00 Pulse Ox 100 10/19/24 14:00 FiO2 Intake & Output 10/18/24 10/19/24 10/19/24 18:59 06:59 18:59 Intake Total 540 Balance 540 Intake: Oral 540 Other: Voiding Method Toilet Toilet Toilet # Voids 2 3 - Exam GENERAL DESCRIPTION: Middle-age female lying in bed in no distress RESPIRATORY SYSTEM: Unlabored breathing , decreased breath sounds at bases HEART: S1 S2 regular rate and rhythm , ABDOMEN: Soft , no tenderness EXTREMITIES: No edema feet - Labs CBC & Chem 7: 10/18/24 03:30 10/19/24 07:00 Labs: Abnormal Lab Results - Last 24 Hours (Table) 10/19/24 Range/Units 07:00 Carbon Dioxide 31 H (22-30) mmol/L Glucose 115 H (74-99) mg/dL Microbiology - Last 24 Hours (Table) 10/15/24 00:18 Blood Culture - Preliminary Blood Assessment and Plan (1) Abdominal pain Current Visit: Yes Status: Acute Code(s): R10.9 - UNSPECIFIED ABDOMINAL PAIN SNOMED Code(s): 95091656 (2) Bacteremia Current Visit: Yes Status: Acute Code(s): R78.81 - BACTEREMIA SNOMED Code(s): 4625277 (3) Enterococcus faecalis infection Current Visit: Yes Status: Acute Code(s): A49.8 - OTHER BACTERIAL INFECTIONS OF UNSPECIFIED SITE SNOMED Code(s): 473328784 Plan: 1patient presented to hospital with lower abdominal pain to have urinary symptoms recently completed course of Bactrim DS for UTI patient did have a negative UA more likely indicating adequate treatment of underlying UTI she has been complaining some abdominal pain however the patient did have a CT abdominal pelvis that has been negative for any acute process 2patient did have a positive blood culture Enterococcus faecalis which is usually of urinary or GI source however patient did have a negative UA CT abdominal pelvis done without contrast did not show acute intra-abdominal pathology, unfortunately CT abdominal pelvis was done again without oral and IV contrast and still waiting for echocardiogram report to be available as of 10/16/2024 3patient echocardiogram finally completed and reported as possible vegetation to the aortic valve cardiology plan is for OG scheduled for tomorrow 10/20/2024 4patient to continue with ampicillin and Rocephin, we will order PICC line for continuation of IV antibiotic therapy in the outpatient setting Dictation was produced using [employer] dictation software. please excuse any grammatical, word or spelling errors. Time with Patient: Less than 30
[2024-10-19] MEDS: ONDANSETRON 4 MG/2 ML VIAL IVP PRN (22:36)
[2024-10-20] MEDS ORDERED: fentaNYL (PF) 50 MCG/ML 2 ML AMP IVP PRN (05:00)
[2024-10-20] MEDS ORDERED: MIDAZOLAM 2 MG/2 ML VIAL IV PRN (05:00)
[2024-10-20] MEDS ORDERED: BENZOCAINE SPRAY 1 EACH MM PRN (05:00)
[2024-10-20] MEDS: BENZOCAINE SPRAY 1 EACH MM ONE ×2 (08:15→08:20)
[2024-10-20] MEDS: fentaNYL (PF) 50 MCG/1 ML VIAL IVP ONE (08:20)
[2024-10-20] MEDS: MIDAZOLAM 2 MG/2 ML VIAL IVP ONE (08:20)
[2024-10-20] MEDS: SODIUM CHLORIDE 0.9% 1,000 ML IV ONE (08:28)
[2024-10-20 10:18] LABS: Basophils # (A) 0.02 X 10*3/uL (0.00-0.10); Basophils % (A) 0.4 %; Eosinophils # (A) 0.12 X 10*3/uL (0.04-0.35); Eosinophils % (A) 2.4 %; HCT 28.6 % (37.2-46.3); HGB 8.1 g/dL (12.0-15.0); Immature Grans, Automated 1.40 %; Lymphocytes # (A) 1.12 X 10*3/uL (0.90-5.00); Lymphocytes % (A) 22.5 %; MCH 26.4 pg (27.0-32.0); MCHC 28.3 g/dL (32.0-37.0); MCV 93.2 FL (80.0-97.0); Monocytes # (A) 0.33 X 10*3/uL (0.20-1.00); Monocytes % (A) 6.6 %; NRBC Per 100 WBC 0 X 10*3/uL (0.00-0.01); Neutrophils # (A) 3.31 X 10*3/uL (1.80-7.70); Neutrophils % (A) 66.7 %; Platelet Count 225 X 10*3/uL (140-440); RBC 3.07 X 10*6/uL (4.10-5.20); RDW 18.0 % (11.5-14.5); WBC 4.97 X 10*3/uL (4.50-10.00)
[2024-10-20 11:09] LABS: ALT 40 U/L (8-44); AST 20 U/L (13-35); Albumin 3.1 g/dL (3.8-4.9); Albumin/Globulin Ratio 1.29 Ratio (1.60-3.17); Alkaline Phosphatase 78 U/L (41-126); Anion Gap 9.70 mmol/L (4.00-12.00); BUN/Creat Ratio 15.00 Ratio (12.00-20.00); Blood Urea Nitrogen 7.5 mg/dL (9.0-27.0); Calcium 9.1 mg/dL (8.7-10.3); Carbon Dioxide 28.3 mmol/L (21.6-31.8); Chloride 102 mmol/L (96-109); Globulin 2.4 g/dL (1.6-3.3); Glucose 93 mg/dL (70-110); Potassium 3.6 mmol/L (3.5-5.5); Sodium 140 mmol/L (135-145); Total Protein 5.5 g/dL (6.2-8.2)
[2024-10-20 11:37] LABS: INR 1.2 (<1.2); Prothrombin Time 13.1 sec (10.0-12.5)
--- NOTE | 2024-10-20 12:07 | P.PN ---
Subjective HISTORY OF PRESENTING ILLNESS: Known to Dr. Berry. Past medical history of hypertension obesity type 2 diabetes dyslipidemia. History of DVT PE on anticoagulation with Eliquis. 08/2024 she underwent PVI ablation and left atrial septal ablation with Dr. Berry for atrial fibrillation. 1 week later she presented to the hospital because of palpitation generalized weakness and fatigue. She was noticed to be in atrial flutter with RVR. She converted out of it spontaneously and since then it appears that she is maintaining sinus rhythm. Since that hospital admission she has had 2 hospital visits for UTI. This time she presented because of abdominal pain. She was found to have possible UTI and achalasia this time she is noticed to have Enterococcus faecalis bacteremia. She had echocardiogram done which showed possible concerns of vegetation on aortic valve with moderate regurgitation. She also was noted to have moderate mitral regurgitation and moderate tricuspid regurgitation Admission Vitals: BP 147/82, heart rate 93 bpm Admission Labs: Hb 8.5, BUN 8, creatinine 0.5 Admission EKG: Sinus tachycardia heart rate 100 bpm Imaging: CT abdomen dilated esophagus with concerns of achalasia. Colonic diverticulosis Prior cardiac testing: Echo from 10/15/2024 shows normal LVEF, echogenic area noticed on aortic valve consistent with possible vegetation, moderate aortic regurgitation, moderate mitral and tricuspid regurgitation, moderate pulm hypertension Progress note 10/19/2024 Vitals are reviewed and blood pressure and heart rate are well-controlled. Sinus rhythm Tolerating Lasix and antihypertensive medications we added yesterday. 10/20/2024 Patient seen and examined resting comfortably laying flat in bed post OG. Verbally Dr. Villafana advised that there was a 1.3 cm vegetation noted on the aortic valve. Currently maintained on IV antibiotics and being followed by infectious disease. PHYSICAL EXAMINATION: Neck: Brisk carotid upstroke, no jugular venous distention. Lungs: Clear to auscultation. Heart: Regular rate and rhythm, S1-S2, , no murmur or rub. Abdomen: Soft nontender, positive bowel sounds. Extremities: No edema, intact distal pulses. Neuro: Alert, oritented, no focal deficits. Detailed neuro exam was not performed. 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 Post A-fib ablation 1 week later she had atrial flutter with RVR but spontaneously converted to sinus. Since then she has been maintaining sinus. # Chronic HFpEF PLAN: Continue IV antibiotics per infectious disease and treat medically for now. She will require repeat OG after antibiotics to reassess AI. We will continue to follow and make recommendations accordingly. Nurse Practitioner note has been reviewed, I agree with a documented findings and plan of care. Patient was seen and examined. Objective - Vital Signs Vital signs: Vital Signs Temp 98.7 F 10/20/24 06:43 Pulse 90 10/20/24 10:00 Resp 17 10/20/24 06:43 BP 155/82 10/20/24 10:00 Pulse Ox 98 10/20/24 10:00 FiO2 Intake & Output 10/19/24 10/20/24 10/20/24 18:59 06:59 18:59 Other: Voiding Method Toilet Toilet Toilet # Voids 1 - Labs CBC & Chem 7: 10/20/24 05:09 10/20/24 05:09 Labs: Abnormal Lab Results - Last 24 Hours (Table) 10/20/24 Range/Units 05:09 RBC 3.07 L (4.10-5.20) X 10*6/uL Hgb 8.1 L (12.0-15.0) g/dL Hct 28.6 L (37.2-46.3) % MCH 26.4 L (27.0-32.0) pg MCHC 28.3 L (32.0-37.0) g/dL RDW 18.0 H (11.5-14.5) % Immature Gran # 0.07 H (0.00-0.04) X 10*3/uL
--- NOTE | 2024-10-20 12:28 | P.PN ---
Subjective Progress Note Date: 10/20/24 SURGICAL PROGRESS NOTE CHIEF COMPLAINT: Abdominal pain HISTORY OF PRESENT ILLNESS: Patient lying in bed comfortably. Abdominal pain improved. She reports having bowel movements. She has been tolerating diet. She was scheduled for a OG today with cardiology service to evaluate for vegetation that was found on echo. She has positive blood culture. Afebrile. WBC 4.97 PHYSICAL EXAM: VITAL SIGNS: Reviewed. GENERAL: Well-developed in no acute distress. ABDOMEN: Soft. Obese nondistended. Nontender NEUROLOGIC: Alert and oriented. Cranial nerves II through XII grossly intact. ASSESSMENT: 1. Ileus resolved. Likely secondary to recent UTI PLAN: -No surgical intervention planned -Continue good bowel regimen at discharge Physician Health Care Marketing Specialist note has been reviewed by physician. Signing provider agrees with the documented findings, assessment, and plan of care. Objective - Vital Signs Vital signs: Vital Signs Temp 98.7 F 10/20/24 06:43 Pulse 90 10/20/24 10:00 Resp 17 10/20/24 06:43 BP 155/82 10/20/24 10:00 Pulse Ox 98 10/20/24 10:00 FiO2 Intake & Output 10/19/24 10/20/24 10/20/24 18:59 06:59 18:59 Other: Voiding Method Toilet Toilet Toilet # Voids 1 - Labs CBC & Chem 7: 10/20/24 05:09 10/20/24 05:09 Labs: Abnormal Lab Results - Last 24 Hours (Table) 10/20/24 10/20/24 10/20/24 Range/Units 05:09 05:09 11:02 RBC 3.07 L (4.10-5.20) X 10*6/uL Hgb 8.1 L (12.0-15.0) g/dL Hct 28.6 L (37.2-46.3) % MCH 26.4 L (27.0-32.0) pg MCHC 28.3 L (32.0-37.0) g/dL RDW 18.0 H (11.5-14.5) % Immature Gran # 0.07 H (0.00-0.04) X 10*3/uL PT 13.1 H (10.0-12.5) sec INR 1.2 H (<1.2) BUN 7.5 L (9.0-27.0) mg/dL Creatinine 0.5 L (0.6-1.5) mg/dL Total Protein 5.5 L (6.2-8.2) g/dL Albumin 3.1 L (3.8-4.9) g/dL Albumin/Globulin Ratio 1.29 L (1.60-3.17) Ratio
--- NOTE | 2024-10-20 13:20 | P.TEE ---
Date of Procedure: 10/20/24 Description of Procedure(s): Procedure performed: 1. Transesophageal Echocardiogram with color flow doppler, pulsed wave doppler and continuous wave doppler, (CPT 24753, +[id number], +[id number]) 2. Moderate conscious sedation. Sedation time 15 mins. (CPT 50893) Indications: Infective endocarditis involving aortic valve Consent: I have discussed the risks, benefits and alternative therapies for the above-mentioned procedure. The patient has indicated understanding and acceptance of the risks of the procedure. Signed consent was obtained and was placed in the paper chart. Procedural Steps: Timeout was performed in usual fashion. Patient's heart rate, blood pressure, oxygen saturation and ECG were monitored. Benzocaine was sprayed liberally in the back of the throat. Bite block was placed between the jaw. 2 mg of Versed and 75 mcg of Fentanyl were administered intravenously. After achieving appropriate moderate conscious sedation, OG probe was advanced without difficulty and without any immediate complications to the esophagus. OG study was performed with color flow doppler, pulsed wave doppler and continuous wave doppler. The probe was then removed. Patient tolerated the procedure well. Patient was transferred to the post procedure area in stable and satisfactory condition. Throughout the procedure patient's heart rate, blood pressure, oxygen saturation and ECG were monitored. Total sedation time 15 mins. Complications: none FINDINGS Left Atrium: Mild left atrial dilatation. No evidence of mass or thrombus seen Left Atrial Appendage: No evidence of thrombus or mass seen in RUFINA Inter atrial septum: Evidence of PFO with [id number] shunt on Doppler. Left Ventricle: Normal global LV size and systolic function Right Atrium: Normal overall RA size Right Ventricle: Normal global RV size and systolic function Aortic Valve: Trileaflet aortic valve with echogenic mass measuring 1.3 cm x 1.3 cm attached on the ventricular surface of the aortic valve. Moderate aortic regurgitation. No evidence of abscess formation in the aorto-mitral curtain. Mitral Valve: Mild mitral regurgitation. No evidence of vegetation. Pulmonic Valve: Not well visualized. Tricuspid Valve: Mild tricuspid regurgitation, no evidence of vegetation Ascending aorta, Aortic root and Aortic arch: Normal size aortic root and ascending aorta. Descending aorta: Mild intimal thickening. No pericardial effusion CONCLUSION: 1.3 cm x 1.3 cm vegetation noticed on the ventricular aspect of the aortic valve suggestive of infective endocarditis Moderate aortic regurgitation No evidence of abscess formation in the aorta mitral curtain Mild mitral regurgitation, mild tricuspid regurgitation with no evidence of vegetation on these valves Evidence of PFO noticed Normal global LV size and systolic function Ck Villafana MD, RPVI, FACC Thank you for allowing [facility] to participate in this patient's care. Feel free to reach out in case of any followup questions.
--- NOTE | 2024-10-21 05:49 | P.PN ---
Subjective Progress Note Date: 10/20/24 This is a pleasant 59-year-old female who was recently admitted with abdominal pain noted to have a dilated esophagus with ingested contents and achalasia. Patient reports she followed with GI in the outpatient setting many years ago and was told there is not much that can be done to correct this. Patient continues with abdominal pain with general surgery following with no plans of surgical intervention and no endoscopy at this time. Patient did have a blood culture that was positive and growing Enterococcus with infectious disease following. Await repeat cultures to determine clearance of bacteremia. Encouraged increase activity as tolerated with sitting up more frequently in the chair. 10/16/2024 Patient is seen in follow-up today with no acute overnight issues. Patient continues to report some abdominal pain although feels she reports it is gas pains. Patient awaiting repeat cultures and is maintained on ampicillin with infectious disease following as initial blood culture showing Enterococcus faecalis. Awaiting repeat blood cultures to determine bacteremia clearance. General surgery has evaluated the patient with no surgical interventions planned recommending to continue with bowel regimen especially on discharge. 10/17/2024 Patient is seen in follow-up today continues to report abdominal pain. Echo report was resulted and there is some echogenic area noted on the aortic valve consistent with vegetation with mild to moderate aortic regurgitation and moderate pulmonary hypertension along with moderate mitral and mild tricuspid regurgitation noted. Patient previous blood cultures were positive showing Enterococcus and repeat cultures thus far have been negative. Will consult cardiology to discuss the need of possible OG for further evaluation. Patient to continue on IV antibiotics with infectious disease following at this time. Continue current as well as bowel regimen. Patient is afebrile with no reported chest pain or shortness of breath. Encouraging increasing activity as tolerated and getting up more frequently. 10/18/2024 Patient seen in follow-up today with no acute overnight issues noted. Patient to be evaluated by cardiology for possible OG and to further evaluate echo as patient is noted to have positive blood cultures and concerns of vegetation. Patient is continued on antibiotics with infectious disease following and repeat blood cultures remain negative thus far. Patient is afebrile and white count is normal with no reported chest pain or shortness of breath. Encouraged increase activity as tolerated. Will follow-up on repeat labs. 10/19/2024 Patient is seen in follow-up today reporting some nausea and will add Zofran and continue with Protonix. Patient was evaluated by cardiology awaiting to obtain records from previous stress test and/or cardiac catheterization as patient recently underwent ablation in the outpatient setting also on previous admissions. Patient tentatively plan for OG on Sunday with cardiology. Repeat cultures remain negative thus far with infectious disease following maintained on current antibiotics and will continue. Encouraged increased activity as tolerated and will follow-up on repeat labs. To inquire with case management/social work on Sunday regarding treatment plan moving forward and if patient is any further on Medicaid application as patient currently has no insurance. 10/20/2024 Patient is seen and evaluated in follow-up with multiple consultations following including infectious disease as patient did have positive blood cultures with Enterococcus. Patient awaiting to undergo OG today with cardiology following and is currently NPO. Hemoglobin is stable at 8.1 with no active bleeding noted, white count remains within normal limits at 4.97, sodium is 140 with a potassium of 3.6 and creatinine is 0.5. Will await official OG report and discuss further with findings regarding discharge planning as patient may likely need IV antibiotics on discharge. Patient currently has no insurance and apparently has been receiving unemployment which is delaying her receiving insurance. Per social work, patient is to contact [email or web address] regarding this. Review of systems: Constitutional: No reports of fatigue, fever, or chills Cardiovascular: No reports of chest pain or palpitations Respiratory: No reports of shortness of breath or cough GI: reports of nausea, no reports of vomiting, reports continued abdominal discomfort and tenderness : No reports of dysuria or retention Neurovascular: reports of generalized weakness All medications have been reviewed PHYSICAL EXAMINATION: GENERAL: The patient is asleep although arousable, alert and oriented x4, Well developed, elderly appearing, morbidly obese HEENT: Pupils are round and equally reacting to light. EOMI. no scleral icterus. No conjunctival pallor. Normocephalic, atraumatic. No pharyngeal erythema. No thyromegaly. CARDIOVASCULAR: S1 and S2 muffled PULMONARY: diminished breath sounds bilaterally with no wheezing or rhonchi noted. ABDOMEN: soft. Mildly tender on exam. Morbidly obese. non-distended, normoactive bowel sounds. No palpable organomegaly. MUSCULOSKELETAL: No joint swelling or deformity. EXTREMITIES: No cyanosis, clubbing, or pedal edema. NEUROLOGICAL: Gross neurological examination did not reveal any focal deficits. Diffuse weakness SKIN: No rashes. Assessment: Abdominal pain, likely secondary to acute ileus, improving, surgery evaluated with no plans of intervention at this time recommending conservative management chest pain possibly secondary to dilated esophagus with achalasia, ACS ruled out History of chronic achalasia History of recent urinary tract infection, treated outpatient. Bacteremia with culture showing Enterococcus and repeat cultures pending Echo reported with concerns of an echogenic area in the aortic valve consistent with vegetation, normal EF, status post OG 10/20/2024 with a 1.3 x 1.3 cm vegetation noticed on the ventricular aspect of the aortic valve suggestive of infective endocarditis, evidence of PFO noticed as well History of atrial fibrillation with previous history of ablation History of congestive heart failure, not in exacerbation History of DVT/PE Hypertension Hyperlipidemia Morbid obesity with a BMI of 42.3 GI prophylaxis DVT prophylaxis Full code Plan: Recommend to continue with current medications and management with general surgery and infectious disease following. General surgery recommending con servative management with no surgical intervention or endoscopic intervention planned at this time Patient did have positive blood cultures with Enterococcus and infectious disease following awaiting repeat cultures. Will await repeat cultures to discuss with infectious disease regarding discharge planning. Repeat blood cultures negative for 72 hours thus far Patient did have 2D echo that was noted to have concerns of vegetation on the aortic valve. Cardiology has evaluated the patient and is status post OG today revealing a 1.3 cm x 1.3 cm vegetation noticed on the ventricular aspect of the aortic valve suggestive of infective endocarditis with moderate aortic regurgitation no abscess formation noted with mild mitral regurgitation and tricuspid regurgitation as well as evidence of PFO and normal LV size and systolic function. Replace electrolytes per protocol and will follow-up on repeat labs. Monitor CBC. Stable above 8 at this time with no active bleeding noted Encouraged increased activity as tolerated Patient is reporting some nausea with no vomiting, continue supportive care and Zofran as needed Discussed the case with case management/social work as well as patient currently has no insurance. Apparently Medicaid has been initiated although unable to receive as patient has been receiving unemployment. Per social work, patient is to contact unemployment. Patient will need insurance as patient will require IV antibiotics on discharge Overall prognosis is guarded The impression and plan of care has been dictated by Nan Zhang, Nurse Practitioner as directed. Dr. Aroldo MD I have performed a history and examination and MDM of this patient, discussed the same with the dictator, and agree with the dictator's assessment and plan as written ,documented as a scribe. Based on total visit time, I have performed more than 50% of the visit. Objective - Vital Signs Vital signs: Vital Signs Temp 98.7 F 10/20/24 06:43 Pulse 95 10/20/24 06:43 Resp 17 10/20/24 06:43 BP 143/70 10/20/24 06:43 Pulse Ox 95 10/20/24 06:43 FiO2 Intake & Output 10/19/24 10/20/24 10/20/24 18:59 06:59 18:59 Other: Voiding Method Toilet Toilet # Voids 1 - Labs CBC & Chem 7: 10/20/24 05:09 10/20/24 05:09 Labs: Abnormal Lab Results - Last 24 Hours (Table) 10/20/24 Range/Units 05:09 RBC 3.07 L (4.10-5.20) X 10*6/uL Hgb 8.1 L (12.0-15.0) g/dL Hct 28.6 L (37.2-46.3) % MCH 26.4 L (27.0-32.0) pg MCHC 28.3 L (32.0-37.0) g/dL RDW 18.0 H (11.5-14.5) % Immature Gran # 0.07 H (0.00-0.04) X 10*3/uL
[2024-10-21 09:16] LABS: INR 1.27 sec (0.93-1.11); Prothrombin Time 14.2 sec (9.9-11.9)
--- NOTE | 2024-10-21 10:00 | P.PN ---
Subjective HISTORY OF PRESENTING ILLNESS: Known to Dr. Berry. Past medical history of hypertension obesity type 2 diabetes dyslipidemia. History of DVT PE on anticoagulation with Eliquis. 08/2024 she underwent PVI ablation and left atrial septal ablation with Dr. Berry for atrial fibrillation. 1 week later she presented to the hospital because of palpitation generalized weakness and fatigue. She was noticed to be in atrial flutter with RVR. She converted out of it spontaneously and since then it appears that she is maintaining sinus rhythm. Since that hospital admission she has had 2 hospital visits for UTI. This time she presented because of abdominal pain. She was found to have possible UTI and achalasia this time she is noticed to have Enterococcus faecalis bacteremia. She had echocardiogram done which showed possible concerns of vegetation on aortic valve with moderate regurgitation. She also was noted to have moderate mitral regurgitation and moderate tricuspid regurgitation Admission Vitals: BP 147/82, heart rate 93 bpm Admission Labs: Hb 8.5, BUN 8, creatinine 0.5 Admission EKG: Sinus tachycardia heart rate 100 bpm Imaging: CT abdomen dilated esophagus with concerns of achalasia. Colonic diverticulosis Prior cardiac testing: Echo from 10/15/2024 shows normal LVEF, echogenic area noticed on aortic valve consistent with possible vegetation, moderate aortic regurgitation, moderate mitral and tricuspid regurgitation, moderate pulm hypertension Progress note 10/19/2024 Vitals are reviewed and blood pressure and heart rate are well-controlled. Sinus rhythm Tolerating Lasix and antihypertensive medications we added yesterday. 10/20/2024 Patient seen and examined resting comfortably laying flat in bed post OG. Verbally Dr. Villafana advised that there was a 1.3 cm vegetation noted on the aortic valve. Currently maintained on IV antibiotics and being followed by infectious disease. 10/21/2024 Pt seen and examined sitting up eating breakfast. She denies chest pain/pressure or shortness of breath. Blood pressure 150/64 heart rate 81 afebrile maintaining oxygen saturation on room air. She continues to be maintained on IV ampicillin and Rocephin per infectious disease. PHYSICAL EXAMINATION: Neck: Brisk carotid upstroke, no jugular venous distention. Lungs: Clear to auscultation. Heart: Regular rate and rhythm, S1-S2, systolic ejection murmur at the base and soft diastolic murmur, no rub. Abdomen: Soft nontender, positive bowel sounds. Extremities: No edema, intact distal pulses. Neuro: Alert, oritented, no focal deficits. Detailed neuro exam was not performed. 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 Post A-fib ablation 1 week later she had atrial flutter with RVR but spontaneously converted to sinus. Since then she has been maintaining sinus. Chronic HFpEF PLAN: Continue IV antibiotics per infectious disease and treat medically for now. Consult CT surgery for their recommendations on vegetation. Repeat blood cultures to ensure negative x2. She will require repeat OG after antibiotics to reassess AI which can be set up after she follows up in the office. We will continue to follow and make recommendations accordingly. Nurse Practitioner note has been reviewed, I agree with a documented findings and plan of care. Patient was seen and examined. Objective - Vital Signs Vital signs: Vital Signs Temp 98.4 F 10/21/24 06:57 Pulse 81 10/21/24 06:57 Resp 18 10/21/24 06:57 BP 150/64 10/21/24 06:57 Pulse Ox 92 L 10/21/24 06:57 FiO2 Intake & Output 10/20/24 10/21/24 10/21/24 18:59 06:59 18:59 Intake Total 1080 118 Balance 1080 118 Intake: Oral 1080 118 Other: Voiding Method Toilet Toilet # Voids 1 5 - Labs CBC & Chem 7: 10/20/24 05:09 10/20/24 05:09 Labs: Abnormal Lab Results - Last 24 Hours (Table) 10/20/24 10/20/24 10/20/24 Range/Units 05:09 05:09 11:02 RBC 3.07 L (4.10-5.20) X 10*6/uL Hgb 8.1 L (12.0-15.0) g/dL Hct 28.6 L (37.2-46.3) % MCH 26.4 L (27.0-32.0) pg MCHC 28.3 L (32.0-37.0) g/dL RDW 18.0 H (11.5-14.5) % Immature Gran # 0.07 H (0.00-0.04) X 10*3/uL PT 13.1 H (10.0-12.5) sec INR 1.2 H (<1.2) BUN 7.5 L (9.0-27.0) mg/dL Creatinine 0.5 L (0.6-1.5) mg/dL Total Protein 5.5 L (6.2-8.2) g/dL Albumin 3.1 L (3.8-4.9) g/dL Albumin/Globulin Ratio 1.29 L (1.60-3.17) Ratio 10/21/24 Range/Units 05:24 RBC (4.10-5.20) X 10*6/uL Hgb (12.0-15.0) g/dL Hct (37.2-46.3) % MCH (27.0-32.0) pg MCHC (32.0-37.0) g/dL RDW (11.5-14.5) % Immature Gran # (0.00-0.04) X 10*3/uL PT 14.2 H (10.0-12.5) sec INR 1.27 H (<1.2) BUN (9.0-27.0) mg/dL Creatinine (0.6-1.5) mg/dL Total Protein (6.2-8.2) g/dL Albumin (3.8-4.9) g/dL Albumin/Globulin Ratio (1.60-3.17) Ratio Microbiology - Last 24 Hours (Table) 10/15/24 00:18 Blood Culture - Final Blood
--- NOTE | 2024-10-21 11:38 | P.PN ---
Subjective Progress Note Date: 10/21/24 SURGICAL PROGRESS NOTE CHIEF COMPLAINT: Abdominal pain HISTORY OF PRESENT ILLNESS: Patient lying in bed comfortably. She denies any abdominal pain. She is having flatus. She reports having bowel movement. Tolerated regular diet. She did have OG completed with cardiology that did report vegetation on the aortic valve suggestive of infective endocarditis. Patient followed by ID service as well. Afebrile. PHYSICAL EXAM: VITAL SIGNS: Reviewed. GENERAL: Well-developed in no acute distress. ABDOMEN: Soft. Obese nondistended. Nontender NEUROLOGIC: Alert and oriented. Cranial nerves II through XII grossly intact. ASSESSMENT: 1. Ileus resolved. Likely secondary to recent UTI PLAN: -No surgical intervention planned -Continue good bowel regimen at discharge Physician Commutator Tester note has been reviewed by physician. Signing provider agrees with the documented findings, assessment, and plan of care. Objective - Vital Signs Vital signs: Vital Signs Temp 98.4 F 10/21/24 06:57 Pulse 81 10/21/24 06:57 Resp 18 10/21/24 06:57 BP 150/64 10/21/24 06:57 Pulse Ox 92 L 10/21/24 06:57 FiO2 Intake & Output 10/20/24 10/21/24 10/21/24 18:59 06:59 18:59 Intake Total 1080 118 Balance 1080 118 Intake: Oral 1080 118 Other: Voiding Method Toilet Toilet Toilet # Voids 1 5 - Labs CBC & Chem 7: 10/20/24 05:09 10/20/24 05:09 Labs: Abnormal Lab Results - Last 24 Hours (Table) 10/20/24 10/21/24 Range/Units 11:02 05:24 PT 13.1 H 14.2 H (10.0-12.5) sec INR 1.2 H 1.27 H (<1.2) Microbiology - Last 24 Hours (Table) 10/15/24 00:18 Blood Culture - Final Blood
--- NOTE | 2024-10-21 15:06 | P.PN ---
Subjective Progress Note Date: 10/20/24 Principal diagnosis: Reason for follow-up is Enterococcus faecalis bacteremia Patient is a 59-year-old female with a past medical history significant for hypertension hyperlipidemia osteoarthritis DVT atrial fibrillation recently treated in the outpatient setting from urgent care with the Bactrim DS for UTI presenting to [facility] ER subsequently with persistent symptoms she has been complaining of lower abdominal pain as well as shortness of breath, negative UA but blood cultures came back positive Enterococcus faecalis CT abdominal pelvis no acute intra-abdominal pathology. 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 On today's evaluation that is 10/20/2024, patient has been afebrile, patient is breathing comfortably and is currently on 3 L nasal cannula oxygen , patient denies having any chest pain and cough, patient denies nausea vomiting or diarrhea and no abdominal pain Patient did have an INR of 1.2 no CBC was done today blood culture repeat has been negative Objective - Vital Signs Vital signs: Vital Signs Temp 97.5 F L 10/20/24 12:40 Pulse 93 10/20/24 12:40 Resp 20 10/20/24 12:40 BP 112/71 10/20/24 12:40 Pulse Ox 97 10/20/24 12:40 FiO2 Intake & Output 10/19/24 10/20/24 10/20/24 18:59 06:59 18:59 Other: Voiding Method Toilet Toilet Toilet # Voids 1 - Exam GENERAL DESCRIPTION: Middle-age female lying in bed in no distress RESPIRATORY SYSTEM: Unlabored breathing , decreased breath sounds at bases HEART: S1 S2 regular rate and rhythm , ABDOMEN: Soft , no tenderness EXTREMITIES: No edema feet - Labs CBC & Chem 7: 10/20/24 05:09 10/20/24 05:09 Labs: Abnormal Lab Results - Last 24 Hours (Table) 10/20/24 10/20/24 10/20/24 Range/Units 05:09 05:09 11:02 RBC 3.07 L (4.10-5.20) X 10*6/uL Hgb 8.1 L (12.0-15.0) g/dL Hct 28.6 L (37.2-46.3) % MCH 26.4 L (27.0-32.0) pg MCHC 28.3 L (32.0-37.0) g/dL RDW 18.0 H (11.5-14.5) % Immature Gran # 0.07 H (0.00-0.04) X 10*3/uL PT 13.1 H (10.0-12.5) sec INR 1.2 H (<1.2) BUN 7.5 L (9.0-27.0) mg/dL Creatinine 0.5 L (0.6-1.5) mg/dL Total Protein 5.5 L (6.2-8.2) g/dL Albumin 3.1 L (3.8-4.9) g/dL Albumin/Globulin Ratio 1.29 L (1.60-3.17) Ratio Microbiology - Last 24 Hours (Table) 10/15/24 00:18 Blood Culture - Final Blood Assessment and Plan (1) Abdominal pain Current Visit: Yes Status: Acute Code(s): R10.9 - UNSPECIFIED ABDOMINAL PAIN SNOMED Code(s): 06700253 (2) Bacteremia Current Visit: Yes Status: Acute Code(s): R78.81 - BACTEREMIA SNOMED Code(s): 1582715 (3) Enterococcus faecalis infection Current Visit: Yes Status: Acute Code(s): A49.8 - OTHER BACTERIAL INFECTIONS OF UNSPECIFIED SITE SNOMED Code(s): 767357584 Plan: 1patient presented to hospital with lower abdominal pain to have urinary symptoms recently completed course of Bactrim DS for UTI patient did have a negative UA more likely indicating adequate treatment of underlying UTI she has been complaining some abdominal pain however the patient did have a CT abdominal pelvis that has been negative for any acute process 2patient did have a positive blood culture Enterococcus faecalis which is usually of urinary or GI source however patient did have a negative UA CT abdominal pelvis done without contrast did not show acute intra-abdominal pathology, unfortunately CT abdominal pelvis was done again without oral and IV contrast and still waiting for echocardiogram report to be available as of 10/16/2024 3patient echocardiogram finally completed and reported as possible vegetation to the aortic valve cardiology plan is status post OG completed 10/20/2024 with evidence of aortic valve vegetation but no abscess 4patient currently being treated with ampicillin and Rocephin, waiting for PICC line placement for outpatient IV antibiotics Dictation was produced using [employer] dictation software. please excuse any grammatical, word or spelling errors. Time with Patient: Less than 30
--- NOTE | 2024-10-21 15:07 | P.PN ---
Subjective Progress Note Date: 10/21/24 Principal diagnosis: Reason for follow-up is Enterococcus faecalis bacteremia Patient is a 59-year-old female with a past medical history significant for hypertension hyperlipidemia osteoarthritis DVT atrial fibrillation recently treated in the outpatient setting from urgent care with the Bactrisera GARCIA for UTI presenting to [facility] ER subsequently with persistent symptoms she has been complaining of lower abdominal pain as well as shortness of breath, negative UA but blood cultures came back positive Enterococcus faecalis CT abdominal pelvis no acute intra-abdominal pathology. 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 On today's evaluation that is 10/21/2024, Patient is afebrile this morning patient denies having any chest pain shortness of breath or cough, the patient is currently on room air, patient denies any abdominal pain no diarrhea no nausea no vomiting mention feeling better. Patient did have a INR of 1.27 blood culture repeat has been negative Objective - Vital Signs Vital signs: Vital Signs Temp 98.4 F 10/21/24 06:57 Pulse 81 10/21/24 06:57 Resp 18 10/21/24 06:57 BP 150/64 10/21/24 06:57 Pulse Ox 92 L 10/21/24 06:57 FiO2 Intake & Output 10/20/24 10/21/24 10/21/24 18:59 06:59 18:59 Intake Total 1080 118 Balance 1080 118 Intake: Oral 1080 118 Other: Voiding Method Toilet Toilet Toilet # Voids 1 5 - Exam GENERAL DESCRIPTION: Middle-age female lying in bed in no distress RESPIRATORY SYSTEM: Unlabored breathing , decreased breath sounds at bases HEART: S1 S2 regular rate and rhythm , ABDOMEN: Soft , no tenderness EXTREMITIES: No edema feet - Labs CBC & Chem 7: 10/20/24 05:09 10/20/24 05:09 Labs: Abnormal Lab Results - Last 24 Hours (Table) 10/21/24 Range/Units 05:24 PT 14.2 H (9.9-11.9) sec INR 1.27 H (0.93-1.11) sec Microbiology - Last 24 Hours (Table) 10/15/24 00:18 Blood Culture - Final Blood Assessment and Plan (1) Abdominal pain Current Visit: Yes Status: Acute Code(s): R10.9 - UNSPECIFIED ABDOMINAL PAIN SNOMED Code(s): 09695989 (2) Bacteremia Current Visit: Yes Status: Acute Code(s): R78.81 - BACTEREMIA SNOMED Code(s): 4684391 (3) Enterococcus faecalis infection Current Visit: Yes Status: Acute Code(s): A49.8 - OTHER BACTERIAL INFECTIONS OF UNSPECIFIED SITE SNOMED Code(s): 834140254 Plan: 1patient presented to hospital with lower abdominal pain to have urinary symptoms recently completed course of Bactrim DS for UTI patient did have a negative UA more likely indicating adequate treatment of underlying UTI she has been complaining some abdominal pain however the patient did have a CT abdominal pelvis that has been negative for any acute process 2patient did have a positive blood culture Enterococcus faecalis which is usually of urinary or GI source however patient did have a negative UA CT abdo ricardo pelvis done without contrast did not show acute intra-abdominal pathology, unfortunately CT abdominal pelvis was done again without oral and IV contrast and still waiting for echocardiogram report to be available as of 10/16/2024 3patient echocardiogram finally completed and reported as possible vegetation to the aortic valve cardiology plan is status post OG completed 10/20/2024 with evidence of aortic valve vegetation but no abscess 4patient currently being treated with ampicillin and Rocephin, 5patient did have a PICC line placement currently waiting for outpatient IV antibiotics arrangment Dictation was produced using [employer] dictation software. please excuse any grammatical, word or spelling errors. Time with Patient: Less than 30
[2024-10-21] MEDS: ACETAMINOPHEN TAB 325 MG TAB PO PRN (23:04)
--- NOTE | 2024-10-22 04:34 | P.PN ---
Subjective Progress Note Date: 10/21/24 This is a pleasant 59-year-old female who was recently admitted with abdominal pain noted to have a dilated esophagus with ingested contents and achalasia. Patient reports she followed with GI in the outpatient setting many years ago and was told there is not much that can be done to correct this. Patient continues with abdominal pain with general surgery following with no plans of surgical intervention and no endoscopy at this time. Patient did have a blood culture that was positive and growing Enterococcus with infectious disease following. Await repeat cultures to determine clearance of bacteremia. Encouraged increase activity as tolerated with sitting up more frequently in the chair. 10/16/2024 Patient is seen in follow-up today with no acute overnight issues. Patient continues to report some abdominal pain although feels she reports it is gas pains. Patient awaiting repeat cultures and is maintained on ampicillin with infectious disease following as initial blood culture showing Enterococcus faecalis. Awaiting repeat blood cultures to determine bacteremia clearance. General surgery has evaluated the patient with no surgical interventions planned recommending to continue with bowel regimen especially on discharge. 10/17/2024 Patient is seen in follow-up today continues to report abdominal pain. Echo report was resulted and there is some echogenic area noted on the aortic valve consistent with vegetation with mild to moderate aortic regurgitation and moderate pulmonary hypertension along with moderate mitral and mild tricuspid regurgitation noted. Patient previous blood cultures were positive showing Enterococcus and repeat cultures thus far have been negative. Will consult cardiology to discuss the need of possible OG for further evaluation. Patient to continue on IV antibiotics with infectious disease following at this time. Continue current as well as bowel regimen. Patient is afebrile with no reported chest pain or shortness of breath. Encouraging increasing activity as tolerated and getting up more frequently. 10/18/2024 Patient seen in follow-up today with no acute overnight issues noted. Patient to be evaluated by cardiology for possible OG and to further evaluate echo as patient is noted to have positive blood cultures and concerns of vegetation. Patient is continued on antibiotics with infectious disease following and repeat blood cultures remain negative thus far. Patient is afebrile and white count is normal with no reported chest pain or shortness of breath. Encouraged increase activity as tolerated. Will follow-up on repeat labs. 10/19/2024 Patient is seen in follow-up today reporting some nausea and will add Zofran and continue with Protonix. Patient was evaluated by cardiology awaiting to obtain records from previous stress test and/or cardiac catheterization as patient recently underwent ablation in the outpatient setting also on previous admissions. Patient tentatively plan for OG on Sunday with cardiology. Repeat cultures remain negative thus far with infectious disease following maintained on current antibiotics and will continue. Encouraged increased activity as tolerated and will follow-up on repeat labs. To inquire with case management/social work on Sunday regarding treatment plan moving forward and if patient is any further on Medicaid application as patient currently has no insurance. 10/20/2024 Patient is seen and evaluated in follow-up with multiple consultations following including infectious disease as patient did have positive blood cultures with Enterococcus. Patient awaiting to undergo OG today with cardiology following and is currently NPO. Hemoglobin is stable at 8.1 with no active bleeding noted, white count remains within normal limits at 4.97, sodium is 140 with a potassium of 3.6 and creatinine is 0.5. Will await official OG report and discuss further with findings regarding discharge planning as patient may likely need IV antibiotics on discharge. Patient currently has no insurance and apparently has been receiving unemployment which is delaying her receiving insurance. Per social work, patient is to contact [employer] regarding this. 10/21/2024 Patient is seen in follow-up today with no acute overnight issues noted. Patient to receive a PICC line as patient will require IV antibiotics outpatient. Social work currently working with the patient as she has no insurance but has not been receiving insurance as patient is receiving unemployment. Arrangements will need to be made prior to discharge for IV antibiotic therapy as patient was noted to have a positive presentation on OG. Recent repeat blood culture is negative and will continue current regimen. Patient is afebrile with no reports of chest pain or shortness of breath. Patient tolerating diet with occasional nausea and no vomiting noted. Patient has been up and walking although continues with some weakness. Encouraged to increase activity as tolerated and walking multiple times throughout the day Review of systems: Constitutional: No reports of fatigue, fever, or chills Cardiovascular: No reports of chest pain or palpitations Respiratory: No reports of shortness of breath or cough GI: reports of nausea, no reports of vomiting, reports improvement in abdominal discomfort and tenderness : No reports of dysuria or retention Neurovascular: reports of generalized weakness All medications have been reviewed PHYSICAL EXAMINATION: GENERAL: The patient is awake, alert and oriented x4, Well developed, elderly appearing, morbidly obese HEENT: Pupils are round and equally reacting to light. EOMI. no scleral icterus. No conjunctival pallor. Normocephalic, atraumatic. No pharyngeal erythema. No thyromegaly. CARDIOVASCULAR: S1 and S2 muffled PULMONARY: diminished breath sounds bilaterally with no wheezing or rhonchi noted. ABDOMEN: soft. Mildly tender on exam. Morbidly obese. non-distended, normoactive bowel sounds. No palpable organomegaly. MUSCULOSKELETAL: No joint swelling or deformity. EXTREMITIES: No cyanosis, clubbing, or pedal edema. NEUROLOGICAL: Gross neurological examination did not reveal any focal deficits. Diffuse weakness SKIN: No rashes. Assessment: Abdominal pain, likely secondary to acute ileus, improving, surgery evaluated with no plans of intervention at this time recommending conservative management chest pain possibly secondary to dilated esophagus with achalasia, ACS ruled out History of chronic achalasia History of recent urinary tract infection, treated outpatient. Bacteremia with culture showing Enterococcus and repeat cultures negative Echo reported with concerns of an echogenic area in the aortic valve consistent with vegetation, normal EF, status post OG 10/20/2024 with a 1.3 x 1.3 cm vegetation noticed on the ventricular aspect of the aortic valve suggestive of infective endocarditis, evidence of PFO noticed as well History of atrial fibrillation with previous history of ablation History of congestive heart failure, not in exacerbation History of DVT/PE Hypertension Hyperlipidemia Morbid obesity with a BMI of 42.3 GI prophylaxis DVT prophylaxis Full code Plan: Recommend to continue with current medications and management with general surgery and infectious disease following. General surgery recommending conservative management with no surgical intervention or endoscopic intervention planned at this time Patient did have positive blood cultures with Enterococcus and infectious disease following with repeat cultures being negative. Patient to receive a PICC line as patient will require outpatient IV antibiotics on discharge Patient did have 2D echo that was noted to have concerns of vegetation on the aortic valve. Cardiology has evaluated the patient and is status post OG today revealing a 1.3 cm x 1.3 cm vegetation noticed on the ventricular aspect of the aortic valve suggestive of infective endocarditis with moderate aortic regurgitation no abscess formation noted with mild mitral regurgitation and tricuspid regurgitation as well as evidence of PFO and normal LV size and systolic function. Replace electrolytes per protocol and will follow-up on repeat labs. Monitor CBC. Stable above 8 at this time with no active bleeding noted Encouraged increased activity as tolerated Discussed the case with case management/social work as well as patient currently has no insurance. Apparently Medicaid has been initiated although unable to receive as patient has been receiving unemployment. Per social work, patient is awaiting to speak with unemployment. Patient will need insurance as patient will require IV antibiotics on discharge Overall prognosis is guarded The impression and plan of care has been dictated by Nan Zhang, Nurse Practitioner as directed. Dr. Aroldo MD I have performed a history and examination and MDM of this patient, discussed the same with the dictator, and agree with the dictator's assessment and plan as written ,documented as a scribe. Based on total visit time, I have performed more than 50% of the visit. Objective - Vital Signs Vital signs: Vital Signs Temp 98.4 F 10/21/24 06:57 Pulse 81 10/21/24 06:57 Resp 18 10/21/24 06:57 BP 150/64 10/21/24 06:57 Pulse Ox 92 L 10/21/24 06:57 FiO2 Intake & Output 10/20/24 10/21/24 10/21/24 18:59 06:59 18:59 Intake Total 1080 118 Balance 1080 118 Intake: Oral 1080 118 Other: Voiding Method Toilet Toilet # Voids 1 5 - Labs CBC & Chem 7: 10/20/24 05:09 10/20/24 05:09 Labs: Abnormal Lab Results - Last 24 Hours (Table) 10/20/24 10/20/24 10/20/24 Range/Units 05:09 05:09 11:02 RBC 3.07 L (4.10-5.20) X 10*6/uL Hgb 8.1 L (12.0-15.0) g/dL Hct 28.6 L (37.2-46.3) % MCH 26.4 L (27.0-32.0) pg MCHC 28.3 L (32.0-37.0) g/dL RDW 18.0 H (11.5-14.5) % Immature Gran # 0.07 H (0.00-0.04) X 10*3/uL PT 13.1 H (10.0-12.5) sec INR 1.2 H (<1.2) BUN 7.5 L (9.0-27.0) mg/dL Creatinine 0.5 L (0.6-1.5) mg/dL Total Protein 5.5 L (6.2-8.2) g/dL Albumin 3.1 L (3.8-4.9) g/dL Albumin/Globulin Ratio 1.29 L (1.60-3.17) Ratio 10/21/24 Range/Units 05:24 RBC (4.10-5.20) X 10*6/uL Hgb (12.0-15.0) g/dL Hct (37.2-46.3) % MCH (27.0-32.0) pg MCHC (32.0-37.0) g/dL RDW (11.5-14.5) % Immature Gran # (0.00-0.04) X 10*3/uL PT 14.2 H (10.0-12.5) sec INR 1.27 H (<1.2) BUN (9.0-27.0) mg/dL Creatinine (0.6-1.5) mg/dL Total Protein (6.2-8.2) g/dL Albumin (3.8-4.9) g/dL Albumin/Globulin Ratio (1.60-3.17) Ratio Microbiology - Last 24 Hours (Table) 10/15/24 00:18 Blood Culture - Final Blood
--- NOTE | 2024-10-22 07:18 | P.GSCN ---
History of Present Illness Consult date: 10/21/24 Reason for Consult: Endocarditis, 1.3 cm x 1.3 cm vegetation on the ventricular aspect of the aortic valve on transesophageal echocardiogram, suggestive of infective endocarditis Requesting physician: Kirstie Swan History of present illness: This is a 59-year-old female patient who follows on an outpatient basis with Dr. Neyda Abreu for her primary care. She has a past medical history significant for hypertension, hyperlipidemia, atrial fibrillation status post ablation, congestive heart failure, pulmonary embolus, deep vein thrombosis, osteoarthritis, diabetes mellitus type 2, Achalasia with previous EGD and dilation, interstitial lung disease, morbid obesity with a BMI of 42.3 kg/m, GERD, and remote history of nicotine dependence, quit smoking 13 years ago. She presented to the emergency department here at [facility] on October 12, 2024 with complaints of abdominal pain, shortness of breath, cough and anxiety. The patient reports that 2 weeks ago she presented to the hospital here at [facility] and was diagnosed with a urinary tract infection. At that time she was started on antibiotic therapy and completed the round of antibiotics. She is presenting back to the emergency department for similar complaints. She denies any recent fever, nausea, vomiting, diarrhea, constipation, chest pain, headache, palpitations, presyncope or syncope. Patient does although report some decrease in appetite. Initial laboratory results on October 12, 2024 showed a WBC count 9.97, hemoglobin 11.8, hematocrit 38.3, platelets 301, PT 12.1, INR 1.1, PTT 27.7, sodium 137, potassium 4.4, chloride 102, CO2 24, BUN 20, creatinine 0.73, glucose 139, calcium 10.6, AST 36, ALT 42, proBNP 418 and troponin 0.017. Blood cultures were sent which showed positive for Enterococcus faecalis. Urine urine culture showed greater than 100,000 CFU per mL apparent skin and or genital efrain. Subsequently due to the patient's positive blood culture she was started on ampicillin and Rocephin which are being managed by infectious disease. The most recent blood culture from 10/15/24 shows no growth. She is also on Eliquis for history of atrial fibrillation, pulmonary embolus and DVT. A twelve-lead EKG was completed which showed sinus tachycardia with 112 bpm heart rate and nonspecific T wave abnormality. Due to the patient's complaint of the abdominal pain and shortness of breath a CT scan of the abdomen and a chest CTA were completed which showed no evidence for pulmonary embolus, dilated esophagus with ingested contents correlate for achalasia, no evidence for acute intra-abdominal process, and colonic diverticulosis. For further evaluation on October 15, 2024 patient underwent a limited transthoracic 2D echocardiogram which revealed a normal left ventricular systolic function with no obvious regional wall motion abnormalities, and ejection fraction estimated at 55 to 60%, moderate mitral valve regurgitation, trileaflet aortic valve with mobile vegetation on the aortic valve, mild to moderate aortic regurgitation, mild tricuspid valve regurgitation, and trace pulmonic valve regurgitation. Due to the findings of mobile vegetation on the aortic valve a transesophageal echocardiogram was completed. The transesophageal echocardiogram was completed yesterday October 20, 2024 which demonstrated a 1.3 x 1.3 cm vegetation noticed on the ventricular aspect of the aortic valve suggestive of infective endocarditis, moderate aortic valve regurgitation, no evidence of abscess formation of the aorta mitral curtain, mild mitral regurgitation, mild tricuspid regurgitation with no evidence of vegetation on these valves, evidence of PFO and a normal global LV size and systolic function. Subsequently due to the findings of the vegetation noticed on the aortic valve, cardiothoracic surgery was consulted for further evaluation and treatment recommendations. Review of Systems A review of systems was completed and was negative except as mentioned in the HPI. Past Medical History Past Medical History: Atrial Fibrillation, Heart Failure, Diabetes Mellitus, Deep Vein Thrombosis (DVT), GERD/Reflux, Hyperlipidemia, Hypertension, Osteoarthritis (OA), Pulmonary Embolus (PE), Respiratory Disorder (Interstitial lung disease) Additional Past Medical History / Comment(s): DVT years ago after taking control, achalasia, restrictive lung disease. Hx Pneumonia September 2017. October 2017 DVT and PE with poor liver and kidney function at that time. Bilateral leg swelling at times, wears compression stockings to work, border line diabetic. Achalasia with previous EGD and dilatation History of Any Multi-Drug Resistant Organisms: None Reported Past Surgical History: Ablation, Cholecystectomy, Heart Catheterization, Orthopedic Surgery Additional Past Surgical History / Comment(s): BILAT [facility],STATES ESOPHAGUS WAS TOO TIGHT AND THEY REMOVED HER RIB AND DID HILAR PROCEDURE, eye surgery as a baby. COLONOSCOPY/EGD, atrial fibrillation ablation with pulmonary vein isolation and left atrial septal ablation on September 01, [address] Berry Past Anesthesia/Blood Transfusion Reactions: No Reported Reaction Past Psychological History: Anxiety, Depression Smoking Status: Former smoker Past Alcohol Use History: Occasional Past Drug Use History: None Reported - Past Family History Father Family Medical History: Cancer Additional Family Medical History / Comment(s): PROSTATE CANCER Sister(s) Family Medical History: Cancer Additional Family Medical History / Comment(s): Skin cancer. Medications and Allergies Home Medications Medication Instructions Recorded Confirmed Type Apixaban [Eliquis] 5 mg PO BID #60 tab 11/17/17 10/12/24 Rx DULoxetine HCL [Cymbalta] 60 mg PO BID 03/02/21 10/12/24 History Albuterol Nebulized [Ventolin 2.5 mg INHALATION RT-TID PRN 09/02/24 10/12/24 History Nebulized] Atorvastatin [Lipitor] 20 mg PO DAILY 09/02/24 10/12/24 History Metoprolol Tartrate [Lopressor] 50 mg PO BID #60 tab 09/03/24 10/12/24 Rx Losartan [Cozaar] 50 mg PO DAILY #30 tab 09/08/24 10/12/24 Rx Furosemide [Lasix] 20 mg PO DAILY 10/12/24 10/12/24 History Allergies Allergy/AdvReac Type Severity Reaction Status Date / Time No Known Allergies Allergy Verified 10/12/24 19:27 Surgical - Exam Vital Signs Temp Pulse Resp BP Pulse Ox 97.4 F L 109 H 20 134/83 99 10/12/24 13:44 10/12/24 13:44 10/12/24 13:44 10/12/24 13:44 10/12/24 13:44 - General well developed, well nourished, no distress, no pain, chronically ill, obese - Eyes PERRL, normal ocular movement, no pale, no icteric - ENT normal pinna, normal nares, normal mucosa, no hearing loss, no congestion, dentures - Neck Neck is supple, no lymphadenopathy. no masses, no bruits, trachea midline, no venous distension - Respiratory Lung sounds essentially clear throughout, diminished to her bilateral bases. No wheezes, rhonchi or crackles. Respirations are symmetrical and nonlabored. - Cardiovascular Regular rhythm and rate. S1 and S2 present, negative for S3, gallop or murmur. - Abdomen Abdomen is soft, nontender and nondistended. Active bowel sounds present all 4 abdominal quadrants. No guarding or rigidity. - Genitourinary Deferred - Integumentary Skin is warm and dry. No clubbing or cyanosis is present. no rash, no growths, no abnormal pigmentation - Neurologic No focal deficits. normal sensation - Musculoskeletal Moves all 4 extremities with equal strength bilateral. normal gait, normal posture - Psychiatric oriented to time, oriented to person, oriented to place, speech is normal, mem ory intact Results - Labs 10/20/24 05:09 10/20/24 05:09 Abnormal Lab Results - Last 24 Hours (Table) 10/20/24 10/20/24 10/21/24 Range/Units 05:09 11:02 05:24 PT 13.1 H 14.2 H (10.0-12.5) sec INR 1.2 H 1.27 H (<1.2) BUN 7.5 L (9.0-27.0) mg/dL Creatinine 0.5 L (0.6-1.5) mg/dL Total Protein 5.5 L (6.2-8.2) g/dL Albumin 3.1 L (3.8-4.9) g/dL Albumin/Globulin Ratio 1.29 L (1.60-3.17) Ratio Microbiology - Last 24 Hours (Table) 10/15/24 00:18 Blood Culture - Final Blood Diabetes panel 10/20/24 Range/Units 05:09 Sodium 140 (135-145) mmol/L Potassium 3.6 (3.5-5.5) mmol/L Chloride 102 (96-109) mmol/L Carbon Dioxide 28.3 (21.6-31.8) mmol/L BUN 7.5 L (9.0-27.0) mg/dL Creatinine 0.5 L (0.6-1.5) mg/dL Glucose 93 (70-110) mg/dL Calcium 9.1 (8.7-10.3) mg/dL AST 20 (13-35) U/L ALT 40 (8-44) U/L Alkaline Phosphatase 78 (41-126) U/L Total Protein 5.5 L (6.2-8.2) g/dL Albumin 3.1 L (3.8-4.9) g/dL Calcium panel 10/20/24 Range/Units 05:09 Calcium 9.1 (8.7-10.3) mg/dL Albumin 3.1 L (3.8-4.9) g/dL Pituitary panel 10/20/24 Range/Units 05:09 Sodium 140 (135-145) mmol/L Potassium 3.6 (3.5-5.5) mmol/L Chloride 102 (96-109) mmol/L Carbon Dioxide 28.3 (21.6-31.8) mmol/L BUN 7.5 L (9.0-27.0) mg/dL Creatinine 0.5 L (0.6-1.5) mg/dL Glucose 93 (70-110) mg/dL Calcium 9.1 (8.7-10.3) mg/dL Adrenal panel 10/20/24 Range/Units 05:09 Sodium 140 (135-145) mmol/L Potassium 3.6 (3.5-5.5) mmol/L Chloride 102 (96-109) mmol/L Carbon Dioxide 28.3 (21.6-31.8) mmol/L BUN 7.5 L (9.0-27.0) mg/dL Creatinine 0.5 L (0.6-1.5) mg/dL Glucose 93 (70-110) mg/dL Calcium 9.1 (8.7-10.3) mg/dL Total Bilirubin 0.3 (0.3-1.2) mg/dL AST 20 (13-35) U/L ALT 40 (8-44) U/L Alkaline Phosphatase 78 (41-126) U/L Total Protein 5.5 L (6.2-8.2) g/dL Albumin 3.1 L (3.8-4.9) g/dL - Imaging Chest x-ray: report reviewed, image reviewed CT scan - chest: report reviewed, image reviewed EKG: image reviewed Assessment and Plan Assessment: Endocarditis, 1.3 cm by 1.3 cm vegetation on the aortic valve per kuo sesophageal echocardiogram Enterococcus faecalis bacteremia likely from complicated UTI Atrial fibrillation status post atrial fibrillation ablation 08/2024, pulmonary vein isolation ablation with left atrial septal ablation. Chronic congestive heart failure Hypertension Hyperlipidemia Diabetes mellitus type 2 Achalasia Morbid obesity with a BMI of 42.3 kg/m Remote history of nicotine dependence, quit smoking 13 years ago Interstitial lung disease Medical debility, walks with a walker as an outpatient Plan: The patient was seen and examined at her bedside on the sixth floor cardiac observation unit. Her chart and diagnostics were reviewed. Her case was discussed in detail with Dr. Nani Jose from cardiothoracic surgery. Left antecubital PICC line has been placed for antibiotic management. We initiate preoperative workup for aortic valve replacement. Once preoperative testing has been completed and collected, an STS risk score will be calculated and discussed with the patient. The patient will need a heart catheterization prior to undergoing aortic valve replacement surgery. A 5 m walk test will be completed with the patient. Antibiotic management per infectious disease. Medical management of other comorbidities per internal medicine, cardiology and pulmonary/critical care medicine. Clinical frailty score was calculated and equaled 3. Patient is hemodynamically stable and is currently on no inotropic or pressor support. More recommendations to follow based on patient's clinical course. Thank you Dr. Swan for this consult and we look forward to working with you in the care of this patient. I have personally seen and examined the patient, performed the documentation and the assessment and plan as written. Number of minutes spent on the visit: 30. JUAN Wright
[2024-10-22] MEDS ORDERED: MD COMMUNICATION TO PHARMACY 1 EACH MISC PO ONE (07:19)
[2024-10-22 08:09] LABS: Basophils # (A) 0.03 10*3/uL (0.00-0.10); Basophils % (A) 0.7 %; Eosinophils # (A) 0.09 10*3/uL (0.04-0.35); Eosinophils % (A) 2.2 %; HCT 27.4 % (37.2-46.3); HGB 8.1 g/dL (12.0-15.0); Lymphocytes # (A) 0.93 10*3/uL (0.90-5.00); Lymphocytes % (A) 22.5 %; MCH 27.4 pg (27.0-32.0); MCHC 29.6 g/dL (32.0-37.0); MCV 92.6 fL (80.0-97.0); Monocytes # (A) 0.23 10*3/uL (0.20-1.00); Monocytes % (A) 5.6 %; Neutrophils # (A) 2.82 10*3/uL (1.80-7.70); Neutrophils % (A) 68.0 %; Platelet Count 190 10*3/uL (140-440); RBC 2.96 10*6/uL (4.10-5.20); RDW 17.8 % (11.5-14.5); WBC 4.14 10*3/uL (4.50-10.00)
[2024-10-22 08:28] LABS: ALT 35 U/L (4-34); AST 28 U/L (14-36); African American GFR (CKD) >90 (>60 ml/min/1.73 sqM); Albumin 2.9 g/dL (3.5-5.0); Albumin/Globulin Ratio 1.1; Alkaline Phosphatase 79 U/L (38-126); Anion Gap 3 mmol/L; Blood Urea Nitrogen 9 mg/dL (7-17); Calcium 9.0 mg/dL (8.4-10.2); Carbon Dioxide 34 mmol/L (22-30); Chloride 102 mmol/L (98-107); Globulin 2.7 g/dL; Glucose 111 mg/dL (74-99); Magnesium 1.5 mg/dL (1.6-2.3); Non-African American GFR(CKD) >90 (>60 ml/min/1.73 sqM); Potassium 3.2 mmol/L (3.5-5.1); Sodium 139 mmol/L (137-145); Total Protein 5.6 g/dL (6.3-8.2)
[2024-10-22] MEDS ORDERED: Potassium Replacement Protocol 1 EACH MISC MISCELLANE PRN (08:45)
[2024-10-22] MEDS ORDERED: Magnesium Replacement Protocol 1 EACH MISC MISCELLANE PRN (08:45)
--- NOTE | 2024-10-22 08:54 | US ---
EXAMINATION TYPE: US carotid duplex BILAT DATE OF EXAM: 10/22/2024 COMPARISON: NONE CLINICAL INDICATION: Female, 59 years old with history of Pre-Op Cardiac Surgery, Ankle Brachial Inde x (BELINDA) ; Additional History: .... Dizziness and weakness TECHNIQUE: Grayscale, color Doppler and spectral Doppler evaluation of the bilateral carotid systems and vertebral arteries. Indirect Doppler criteria was utilized. FINDINGS: EXAM MEASUREMENTS: RIGHT: Peak Systolic Velocity (PSV) cm/sec ----- Right CCA: 52.0 ----- Right ICA: 99.5 ----- Right ECA: 96.5 ICA/CCA ratio: 1.9 RIGHT: End Diastole cm/sec ----- Right CCA: 9.3 ----- Right ICA: 28.3 ----- Right ECA: 9.8 LEFT: Peak Systolic Velocity (PSV) cm/sec ----- Left CCA: 66.9 ----- Left ICA: 101.7 ----- Left ECA: 97.8 ICA/CCA ratio: 1.5 LEFT: End Diastole cm/sec ----- Left CCA: 12.4 ----- Left ICA: 25.4 ----- Left ECA: 21.5 VERTEBRALS (direction of flow): Right Vertebral: Antegrade Left Vertebral: Antegrade Rhythm: Normal MERCHANDISE EXECUTIVE NOTES: No elevated velocities or significant stenosis seen, mild bilateral plaque seen Color Doppler imaging shows patency with blood flow throughout the carotid artery. Spectral waveforms are within normal limits. IMPRESSION: No hemodynamically significant internal carotid artery stenosis on either side. Criteria for Assigning % of Stenosis / Diameter reduction (Estimation based on the indirect measurements of the internal carotid artery velocities (ICA PSV). 1. Normal (no stenosis)=ICA PSV < 180 cm/s: ratio < 2.0: ICA EDV<40 cm/s. 2. Less than 50% stenosis=ICA PSV < 180 cm/s: ratio < 2.0: ICA EDV<40 cm/s. 3. 50 to 69% stenosis=ICA PSV of 180 to 230 cm/s: ration 2.0 ? 4.0: ICA EDV 40-100 cm/s. PSV 125-180 cm/sec and ICA/CCA PSV Ratio ? 2.0 is also consistent with 50-69% stenosis 4. Greater than 70% stenosis to near occlusion= ICA PSV > 230 cm/s: ratio > 4.0: ICA EDV > 100 cm/s. 5. Near occlusion= ICA PSV velocities may be low or undetectable: variable ratio and ICA EDV. 6. Total occlusion=unable to detect flow. [facility], , 10/22/2024 8:52 AM
[2024-10-22] MEDS: POTASSIUM CHLORIDE ER 20 MEQ TAB.ER PO SCH (09:03)
--- NOTE | 2024-10-22 09:11 | US ---
EXAMINATION TYPE: US vein mapping BILAT DATE OF EXAM: 10/22/2024 8:45 AM COMPARISON: NONE CLINICAL INDICATION: Female, 59 years old with history of PreOp Cardiac Surgery; , Preop- Cardiac Magdy randall TECHNIQUE: Grayscale and color Doppler imaging of the lower extremity venous system. SIDE PERFORMED: Bilateral FINDINGS: PATIENT HISTORY: DUPLEX FINDINGS: Greater Saphenous: Color flow seen Measurements in mm: Right Greater Saphenous: Groin: 9.1x6.9 mm High Thigh: 4.1x3.4 mm Mid Thigh: 3.9x3.8 mm Above Knee: 2.2x1.4 mm Knee: 1.8x1.7 mm Below Knee: 1.9x1.4 mm Mid Calf: 1.4x1.0 mm At Ankle: 1.3x1.1 mm Varicose veins seen within RT ankle, compressible Left Greater Saphenous: Groin: 1.4x9.5 mm High Thigh: 6.7x5.5 mm Mid Thigh: 5.9x4.2 mm Above Knee: 4.8x2.9 mm Knee: 2.8x2.1 mm Below Knee: 5.4x4.0 mm Mid Calf: 4.1x2.6 mm At Ankle: 3.9x2.4 mm There are some superficial varicose veins present IMPRESSION: 1. No evidence for occlusion. 2. GSV measurements listed above. 3. Performing surgeon to determine viability as conduit. [facility], , 10/22/2024 9:09 AM
--- NOTE | 2024-10-22 09:40 | P.PN ---
Subjective Progress Note Date: 10/22/24 Principal diagnosis: Endocarditis, 1.3 cm x 1.3 cm vegetation on the ventricular aspect of the aortic valve on transesophageal echocardiogram, suggestive of infective endocarditis. Past medical history significant for hypertension, hyperlipidemia, atrial fibrillation status post ablation on Eliquis for anticoagulation, congestive heart failure, pulmonary embolus, deep vein thrombosis, osteoarthritis, diabetes mellitus type 2, Achalasia with previous EGD and dilation, interstitial lung disease, morbid obesity with a BMI of 42.3 kg/m, GERD, and remote history of nicotine dependence, quit smoking 13 years ago. The patient was seen and examined in follow-up today October 22, 2024 at her bedside on the sixth floor cardiac observation unit. She is currently lying in bed, is awake, alert, oriented x 3 and is in no acute apparent distress. She denies any complaints of pain at this time, although is remaining complaining of episodes of shortness of breath with activity. A transesophageal echocardiogram was completed on October 20, 2024 which showed evidence of a 1.3 cm x 1.3 cm vegetation on the ventricular aspect of the aortic valve suggestive of infective endocarditis. It also revealed moderate aortic valve regurgitation, no evidence of abscess formation in the aorta mitral curtain, mild mitral regurgitation, mild tricuspid regurgitation with no evidence of vegetation on these valves, evidence of a PFO and no normal LV size and systolic function. The patient had positive blood cultures from October 12, 2024 which showed evidence of Enterococcus faecalis, she remains on ampicillin and Rocephin for antibiotic treatment managed by infectious disease. On 10/16/2019 5 repeat blood cultures were completed which shows no growth. The patient will need an aortic valve replacement, timing of surgery pending, the patient will need a heart catheterization prior to surgery. Preoperative testing has been initiated and preoperative teaching has been initiated. A clinical frailty score has also been calculated which equals 3. Once her preoperative testing has been completed and results obtained an STS risk score will be calculated and discussed with the patient. The patient is edentulous, and therefore will not require dental clearance. Laboratory results have been reviewed. Objective - Vital Signs Vital signs: Vital Signs Temp 97.7 F 10/22/24 07:00 Pulse 78 10/22/24 07:00 Resp 18 10/22/24 07:00 BP 185/71 10/22/24 07:00 Pulse Ox 98 10/22/24 07:00 FiO2 Intake & Output 06/24/25 06/25/25 06/25/25 18:59 06:59 18:59 Intake Total 118 540 Output Total 2 Balance 116 540 Intake: Oral 118 540 Output: Urine 2 Other: Voiding Method Toilet # Voids 1 2 # Bowel Movements 1 1 - Exam CONSTITUTIONAL: appears comfortable, cooperative, no apparent acute distress. HEENT: Neck is supple, no JVD, no lymphadenopathy. RESPIRATORY: Lungs sounds essentially clear throughout, diminished to her bilateral bases. Respirations are symmetrical and nonlabored. Currently on 3 L nasal cannula with oxygen saturations 98%. Strong cough. CARDIOVASCULAR: Regular rhythm and rate. S1 and S2 present, negative for S3, gallop or murmur. No calf pain or tenderness noted. GASTROINTESTINAL: Abdomen soft, nontender, nondistended. Active bowel sounds present 4 quadrants. Passing flatus. No guarding or rigidity. GENITOURINARY: Continues to void. INTEGUMENTARY: Skin is warm and dry with no evidence of clubbing or cyanosis. NEUROLOGIC: Cranial nerves II through XII intact. No focal deficits. MUSKULOSKELETAL: Able to move all extremities, strength equal bilaterally, generalized weakness. PSYCHIATRIC: Alert and oriented to person place and time, appropriate affect, intact judgment and insight. - Allied health notes Allied health notes reviewed: nursing - Labs CBC & Chem 7: 10/22/24 07:49 10/22/24 07:49 Labs: Abnormal Lab Results - Last 24 Hours (Table) 10/21/24 10/22/24 10/22/24 Range/Units 05:24 07:49 07:49 WBC 4.14 L (4.50-10.00) 10*3/uL RBC 2.96 L (4.10-5.20) 10*6/uL Hgb 8.1 L (12.0-15.0) g/dL Hct 27.4 L (37.2-46.3) % MCHC 29.6 L (32.0-37.0) g/dL RDW 17.8 H (11.5-14.5) % MPV 8.9 L (9.5-12.2) fL PT 14.2 H (9.9-11.9) sec INR 1.27 H (0.93-1.11) sec Potassium 3.2 L (3.5-5.1) mmol/L Carbon Dioxide 34 H (22-30) mmol/L Creatinine 0.51 L (0.52-1.04) mg/dL Glucose 111 H (74-99) mg/dL Magnesium 1.5 L (1.6-2.3) mg/dL ALT 35 H (4-34) U/L Total Protein 5.6 L (6.3-8.2) g/dL Albumin 2.9 L (3.5-5.0) g/dL Assessment and Plan Assessment: Endocarditis, 1.3 cm by 1.3 cm vegetation on the aortic valve per transesophageal echocardiogram Enterococcus faecalis bacteremia likely from complicated UTI, blood culture from 10/15/2024 shows no growth after 5 days PFO, per OG results Anemia, unknown etiology History of ileus, general surgery following, likely secondary to recent UTI Atrial fibrillation status post atrial fibrillation ablation 08/2024, pulmonary vein isolation ablation with left atrial septal ablation, on Eliquis for anticoagulation Chronic congestive heart failure Hypertension Hyperlipidemia Diabetes mellitus type 2 Achalasia Morbid obesity with a BMI of 42.3 kg/m Medical debility, patient has been using a walker for ambulating for the past month Remote history of nicotine dependence, quit smoking 13 years ago Interstitial lung disease Medical debility, walks with a walker as an outpatient Plan: Preoperative teaching and preoperative testing has been initiated. Due to the patient's anemia we will send a stool for occult blood. Encourage use of incentive spirometry 10 times every hour while awake. A 5 m walk test was completed with the patient, the patient had to use a walker with the walk test, time 1: 8.68 seconds, time 2: 7.65 seconds, time 3: 7.70 seconds. Once her preoperative testing has been completed and results obtained an STS risk core will be calculated and discussed with the patient. A clinical frailty score was calculated which equals 3. The patient will not require dental clearance as she is edentulous. The patient will require a heart catheterization prior to being scheduled for cardiac surgery. Medical management of other comorbidities per internal medicine, infectious disease and cardiology services. Prior to surgery her Eliquis will need to be held for 3 days. Antibiotic recommendations per infectious disease. More recommendations to follow based on patient's clinical course. Time with Patient: Greater than 30
[2024-10-22 10:44] LABS: Hepatitis A Antibody IgM Nonreactive (Nonreactive); Hepatitis B Surface Antigen Nonreactive (Nonreactive); Hepatitis C IgG Antibody Nonreactive (Nonreactive)
[2024-10-22] MEDS: MAGNESIUM SULFATE-D5W PMX 1 GM in DEXTROSE/WATER 1 100ML.BAG IVPB SCH (10:54)
--- NOTE | 2024-10-22 11:17 | P.PN ---
Subjective Progress Note Date: 10/22/24 SURGICAL PROGRESS NOTE CHIEF COMPLAINT: Abdominal pain HISTORY OF PRESENT ILLNESS: Patient lying in bed comfortably. She denies any abdominal pain. She has been having bowel movements. Tolerating diet. She did have OG completed with cardiology that did report vegetation on the aortic valve suggestive of infective endocarditis. Patient being evaluated by cardiothoracic team. PHYSICAL EXAM: VITAL SIGNS: Reviewed. GENERAL: Well-developed in no acute distress. ABDOMEN: Soft. Obese nondistended. Nontender NEUROLOGIC: Alert and oriented. Cranial nerves II through XII grossly intact. ASSESSMENT: 1. Ileus resolved. Likely secondary to recent UTI PLAN: -No surgical intervention planned -Continue good bowel regimen Physician Rewinder note has been reviewed by physician. Signing provider agrees with the documented findings, assessment, and plan of care. Objective - Vital Signs Vital signs: Vital Signs Temp 97.7 F 10/22/24 07:00 Pulse 78 10/22/24 07:00 Resp 18 10/22/24 07:00 BP 185/71 10/22/24 07:00 Pulse Ox 98 10/22/24 07:00 FiO2 Intake & Output 10/21/24 10/22/24 10/22/24 18:59 06:59 18:59 Intake Total 118 540 Output Total 2 Balance 116 540 Intake: Oral 118 540 Output: Urine 2 Other: Voiding Method Toilet # Voids 1 2 # Bowel Movements 1 1 - Labs CBC & Chem 7: 10/22/24 07:49 10/22/24 07:49 Labs: Abnormal Lab Results - Last 24 Hours (Table) 10/22/24 10/22/24 Range/Units 07:49 07:49 WBC 4.14 L (4.50-10.00) 10*3/uL RBC 2.96 L (4.10-5.20) 10*6/uL Hgb 8.1 L (12.0-15.0) g/dL Hct 27.4 L (37.2-46.3) % MCHC 29.6 L (32.0-37.0) g/dL RDW 17.8 H (11.5-14.5) % MPV 8.9 L (9.5-12.2) fL Potassium 3.2 L (3.5-5.1) mmol/L Carbon Dioxide 34 H (22-30) mmol/L Creatinine 0.51 L (0.52-1.04) mg/dL Glucose 111 H (74-99) mg/dL Magnesium 1.5 L (1.6-2.3) mg/dL ALT 35 H (4-34) U/L Total Protein 5.6 L (6.3-8.2) g/dL Albumin 2.9 L (3.5-5.0) g/dL
--- NOTE | 2024-10-22 11:43 | P.PN ---
Subjective HISTORY OF PRESENTING ILLNESS: Known to Dr. Berry. Past medical history of hypertension obesity type 2 diabetes dyslipidemia. History of DVT PE on anticoagulation with Eliquis. 08/2024 she underwent PVI ablation and left atrial septal ablation with Dr. Berry for atrial fibrillation. 1 week later she presented to the hospital because of palpitation generalized weakness and fatigue. She was noticed to be in atrial flutter with RVR. She converted out of it spontaneously and since then it appears that she is maintaining sinus rhythm. Since that hospital admission she has had 2 hospital visits for UTI. This time she presented because of abdominal pain. She was found to have possible UTI and achalasia this time she is noticed to have Enterococcus faecalis bacteremia. She had echocardiogram done which showed possible concerns of vegetation on aortic valve with moderate regurgitation. She also was noted to have moderate mitral regurgitation and moderate tricuspid regurgitation Admission Vitals: BP 147/82, heart rate 93 bpm Admission Labs: Hb 8.5, BUN 8, creatinine 0.5 Admission EKG: Sinus tachycardia heart rate 100 bpm Imaging: CT abdomen dilated esophagus with concerns of achalasia. Colonic diverticulosis Prior cardiac testing: Echo from 10/15/2024 shows normal LVEF, echogenic area noticed on aortic valve consistent with possible vegetation, moderate aortic regurgitation, moderate mitral and tricuspid regurgitation, moderate pulm hypertension Progress note 10/19/2024 Vitals are reviewed and blood pressure and heart rate are well-controlled. Sinus rhythm Tolerating Lasix and antihypertensive medications we added yesterday. 10/20/2024 Patient seen and examined resting comfortably laying flat in bed post OG. Verbally Dr. Villafana advised that there was a 1.3 cm vegetation noted on the aortic valve. Currently maintained on IV antibiotics and being followed by infectious disease. 10/21/2024 Pt seen and examined sitting up eating breakfast. She denies chest pain/pressure or shortness of breath. Blood pressure 150/64 heart rate 81 afebrile maintaining oxygen saturation on room air. She continues to be maintained on IV ampicillin and Rocephin per infectious disease. 10/22/2024 Patient seen and examined sitting on the edge of the bed in no acute distress. Blood pressure 185/71 heart rate 78 afebrile maintaining oxygen saturation on nasal cannula. Laboratory data reviewed, hemoglobin 8.1, platelets 190, sodium 139, potassium 3.2, creatinine 0.5, TSH 2.0. Repeat blood cultures were taken yesterday and remain pending. She has been seen by CT surgery and they are recommending aortic valve replacement. They have begun preoperative teaching with the patient as well as testing. They are requesting a left heart catheterization. PHYSICAL EXAMINATION: Neck: Brisk carotid upstroke, no jugular venous distention. Lungs: Clear to auscultation. Heart: Regular rate and rhythm, S1-S2, systolic ejection murmur at the base and soft diastolic murmur, no rub. Abdomen: Soft nontender, positive bowel sounds. Extremities: No edema, intact distal pulses. Neuro: Alert, oritented, no focal deficits. Detailed neuro exam was not performed. 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 Post A-fib ablation 1 week later she had atrial flutter with RVR but spontaneously converted to sinus. Since then she has been maintaining s inus. Chronic HFpEF PLAN: Continue IV antibiotics per infectious disease. Dr. Swan spoke with CT surgery APPEALS EXAMINER Joss Esparza and they discussed setting her up for outpatient heart catheterization post antibiotics. She will see Dr. Villafana 1 week after discharge to scheduled for LHC and repeat OG to assess valve post antibiotics. He also has discussed this plan with Dr. Berry and they are all in agreement at this time. Pt updated at the bedside. Increase losartan to 100 mg daily. Replace potassium per protocol. We will continue to follow and make recommendations accordingly. Nurse Practitioner note has been reviewed, I agree with a documented findings and plan of care. Patient was seen and examined. Objective - Vital Signs Vital signs: Vital Signs Temp 97.7 F 10/22/24 07:00 Pulse 78 10/22/24 07:00 Resp 18 10/22/24 07:00 BP 185/71 10/22/24 07:00 Pulse Ox 98 10/22/24 07:00 FiO2 Intake & Output 10/21/24 10/22/24 10/22/24 18:59 06:59 18:59 Intake Total 118 540 Output Total 2 Balance 116 540 Intake: Oral 118 540 Output: Urine 2 Other: Voiding Method Toilet # Voids 1 2 # Bowel Movements 1 1 - Labs CBC & Chem 7: 10/22/24 07:49 10/22/24 07:49 Labs: Abnormal Lab Results - Last 24 Hours (Table) 10/22/24 10/22/24 Range/Units 07:49 07:49 WBC 4.14 L (4.50-10.00) 10*3/uL RBC 2.96 L (4.10-5.20) 10*6/uL Hgb 8.1 L (12.0-15.0) g/dL Hct 27.4 L (37.2-46.3) % MCHC 29.6 L (32.0-37.0) g/dL RDW 17.8 H (11.5-14.5) % MPV 8.9 L (9.5-12.2) fL Potassium 3.2 L (3.5-5.1) mmol/L Carbon Dioxide 34 H (22-30) mmol/L Creatinine 0.51 L (0.52-1.04) mg/dL Glucose 111 H (74-99) mg/dL Magnesium 1.5 L (1.6-2.3) mg/dL ALT 35 H (4-34) U/L Total Protein 5.6 L (6.3-8.2) g/dL Albumin 2.9 L (3.5-5.0) g/dL
[2024-10-22 14:54] LABS: Bilirubin,Urine Negative (Negative); Blood,Urine Negative (Negative); Color,Urine Light Yellow; Glucose,Urine (UA) Negative (Negative); Ketones,Urine Negative (Negative); Leukocyte Esterase,Urine Negative (Negative); Nitrite,Urine Negative (Negative); PH, Urine 6.5 (5.0-8.0); Protein,Urine Negative (Negative); Specific Gravity,Urine 1.016 (1.001-1.035); Urobilinogen,Urine <2.0 mg/dL (<2.0)
[2024-10-22 15:17] LABS: Cholesterol 122.00 mg/dL (0.00-200.00); HDL Cholesterol 14.30 mg/dL (40.00-60.00); LDL Cholesterol,Calculated 68.3 mg/dL (0.0-131.0); Triglycerides 197.00 mg/dL (0.00-149.00); VLDL Calculation 39.40 mg/dL (5.00-40.00)
[2024-10-22] MEDS: MUPIROCIN 2% OINT 22 GM TUBE NASAL SCH (20:18)
--- NOTE | 2024-10-23 04:38 | P.PN ---
Subjective Progress Note Date: 10/22/24 This is a pleasant 59-year-old female who was recently admitted with abdominal pain noted to have a dilated esophagus with ingested contents and achalasia. Patient reports she followed with GI in the outpatient setting many years ago and was told there is not much that can be done to correct this. Patient continues with abdominal pain with general surgery following with no plans of surgical intervention and no endoscopy at this time. Patient did have a blood culture that was positive and growing Enterococcus with infectious disease following. Await repeat cultures to determine clearance of bacteremia. Encouraged increase activity as tolerated with sitting up more frequently in the chair. 10/16/2024 Patient is seen in follow-up today with no acute overnight issues. Patient continues to report some abdominal pain although feels she reports it is gas pains. Patient awaiting repeat cultures and is maintained on ampicillin with infectious disease following as initial blood culture showing Enterococcus faecalis. Awaiting repeat blood cultures to determine bacteremia clearance. General surgery has evaluated the patient with no surgical interventions planned recommending to continue with bowel regimen especially on discharge. 10/17/2024 Patient is seen in follow-up today continues to report abdominal pain. Echo report was resulted and there is some echogenic area noted on the aortic valve consistent with vegetation with mild to moderate aortic regurgitation and moderate pulmonary hypertension along with moderate mitral and mild tricuspid regurgitation noted. Patient previous blood cultures were positive showing Enterococcus and repeat cultures thus far have been negative. Will consult cardiology to discuss the need of possible OG for further evaluation. Patient to continue on IV antibiotics with infectious disease following at this time. Continue current as well as bowel regimen. Patient is afebrile with no reported chest pain or shortness of breath. Encouraging increasing activity as tolerated and getting up more frequently. 10/18/2024 Patient seen in follow-up today with no acute overnight issues noted. Patient to be evaluated by cardiology for possible OG and to further evaluate echo as patient is noted to have positive blood cultures and concerns of vegetation. Patient is continued on antibiotics with infectious disease following and repeat blood cultures remain negative thus far. Patient is afebrile and white count is normal with no reported chest pain or shortness of breath. Encouraged increase activity as tolerated. Will follow-up on repeat labs. 10/19/2024 Patient is seen in follow-up today reporting some nausea and will add Zofran and continue with Protonix. Patient was evaluated by cardiology awaiting to obtain records from previous stress test and/or cardiac catheterization as patient recently underwent ablation in the outpatient setting also on previous admissions. Patient tentatively plan for OG on Sunday with cardiology. Repeat cultures remain negative thus far with infectious disease following maintained on current antibiotics and will continue. Encouraged increased activity as tolerated and will follow-up on repeat labs. To inquire with case management/social work on Sunday regarding treatment plan moving forward and if patient is any further on Medicaid application as patient currently has no insurance. 10/20/2024 Patient is seen and evaluated in follow-up with multiple consultations following including infectious disease as patient did have positive blood cultures with Enterococcus. Patient awaiting to undergo OG today with cardiology following and is currently NPO. Hemoglobin is stable at 8.1 with no active bleeding noted, white count remains within normal limits at 4.97, sodium is 140 with a potassium of 3.6 and creatinine is 0.5. Will await official OG report and discuss further with findings regarding discharge planning as patient may likely need IV antibiotics on discharge. Patient currently has no insurance and apparently has been receiving unemployment which is delaying her receiving insurance. Per social work, patient is to contact [employer] regarding this. 10/21/2024 Patient is seen in follow-up today with no acute overnight issues noted. Patient to receive a PICC line as patient will require IV antibiotics outpatient. Social work currently working with the patient as she has no insurance but has not been receiving insurance as patient is receiving unemployment. Arrangements will need to be made prior to discharge for IV antibiotic therapy as patient was noted to have a positive presentation on OG. Recent repeat blood culture is negative and will continue current regimen. Patient is afebrile with no reports of chest pain or shortness of breath. Patient tolerating diet with occasional nausea and no vomiting noted. Patient has been up and walking although continues with some weakness. Encouraged to increase activity as tolerated and walking multiple times throughout the day 10/22/2024 Patient is seen in follow-up today has received a PICC line currently awaiting a call back from [employer] to be able to initiate insurance as patient currentl y has no insurance. Repeat blood cultures are negative although patient was positive for OG with vegetation on the aortic valve. Cardiology following and has consulted CT surgery for further possible aortic valve replacement. Patient is continued on antibiotics with infectious disease following and will continue. Patient will require cardiac catheterization prior to valve replacement and is undergoing further initial workup. Cardiology recommends negative blood cultures prior to proceeding with catheterization. Repeat blood cultures thus far negative for 4 days. Patient is afebrile with no reports of chest pain or shortness of breath. Patient reports has been up and walking although is significantly weak. Encouraged increased activity as tolerated including sitting up in the chair more frequently. Review of systems: Constitutional: No reports of fatigue, fever, or chills Cardiovascular: No reports of chest pain or palpitations Respiratory: No reports of shortness of breath or cough GI: reports of occasional nausea, no reports of vomiting, reports improvement in abdominal discomfort and tenderness, continued multiple bowel movements : No reports of dysuria or retention Neurovascular: reports of generalized weakness All medications have been reviewed PHYSICAL EXAMINATION: GENERAL: The patient is awake, alert and oriented x4, Well developed, elderly appearing, morbidly obese HEENT: Pupils are round and equally reacting to light. EOMI. no scleral icterus. No conjunctival pallor. Normocephalic, atraumatic. No pharyngeal erythema. No thyromegaly. CARDIOVASCULAR: S1 and S2 muffled PULMONARY: diminished breath sounds bilaterally with no wheezing or rhonchi noted. ABDOMEN: soft. Mildly tender on exam. Morbidly obese. non-distended, normoactive bowel sounds. No palpable organomegaly. MUSCULOSKELETAL: No joint swelling or deformity. EXTREMITIES: No cyanosis, clubbing, or pedal edema. NEUROLOGICAL: Gross neurological examination did not reveal any focal deficits. Diffuse weakness SKIN: No rashes. Assessment: Abdominal pain, likely secondary to acute ileus, resolved, surgery evaluated with no plans of intervention at this time recommending conservative management chest pain possibly secondary to dilated esophagus with achalasia, ACS ruled out History of chronic achalasia History of recent urinary tract infection, treated outpatient. Bacteremia with culture showing Enterococcus and repeat cultures negative Echo reported with concerns of an echogenic area in the aortic valve consistent with vegetation, normal EF, status post OG 10/20/2024 with a 1.3 x 1.3 cm vegetation noticed on the ventricular aspect of the aortic valve suggestive of infective endocarditis, evidence of PFO noticed as well History of atrial fibrillation with previous history of ablation History of congestive heart failure, not in exacerbation History of DVT/PE Hypertension Hyperlipidemia Morbid obesity with a BMI of 42.3 GI prophylaxis DVT prophylaxis Full code Plan: Recommend to continue with current medications and management with general surgery and infectious disease following. General surgery recommending conservative management with no surgical intervention or endoscopic intervention planned at this time Patient did have positive blood cultures with Enterococcus and infectious disease following with repeat cultures being negative. Patient did receive a PICC line as patient will require outpatient IV antibiotics on discharge Patient did have 2D echo that was noted to have concerns of vegetation on the aortic valve. Cardiology has evaluated the patient and is status post OG today revealing a 1.3 cm x 1.3 cm vegetation noticed on the ventricular aspect of the aortic valve suggestive of infective endocarditis with moderate aortic re gurgitation no abscess formation noted with mild mitral regurgitation and tricuspid regurgitation as well as evidence of PFO and normal LV size and systolic function. Patient will need to undergo cardiac catheterization after clearance of bacteremia and CT surgery was consulted currently undergoing possible aortic valve replacement workup Replace electrolytes per protocol and will follow-up on repeat labs. Monitor CBC. Stable above 8 at this time with no active bleeding noted Encouraged increased activity as tolerated Discussed the case with case management/social work as well as patient currently has no insurance. Apparently Medicaid has been initiated although unable to receive as patient has been receiving unemployment. Per social work, patient is awaiting to speak with unemployment. Patient reports has an appointment on 10/23 at 11:55 AM for return call from on appointment. Patient will need insurance as patient will require IV antibiotics on discharge and likely aortic valve replacement Overall prognosis is guarded The impression and plan of care has been dictated by Nan Zhang, Nurse Practitioner as directed. Dr. Aroldo MD I have performed a history and examination and MDM of this patient, discussed the same with the dictator, and agree with the dictator's assessment and plan as written ,documented as a scribe. Based on total visit time, I have performed more than 50% of the visit. Objective - Vital Signs Vital signs: Vital Signs Temp 98.0 F 10/22/24 14:21 Pulse 66 10/22/24 14:21 Resp 18 10/22/24 14:21 BP 111/52 10/22/24 14:21 Pulse Ox 96 10/22/24 14:21 FiO2 Intake & Output 10/21/24 10/22/24 10/22/24 18:59 06:59 18:59 Intake Total 118 540 Output Total 2 Balance 116 540 Intake: Oral 118 540 Output: Urine 2 Other: Voiding Method Toilet Toilet # Voids 1 2 # Bowel Movements 1 1 - Labs CBC & Chem 7: 10/22/24 07:49 10/22/24 07:49 Labs: Abnormal Lab Results - Last 24 Hours (Table) 10/22/24 10/22/24 Range/Units 07:49 07:49 WBC 4.14 L (4.50-10.00) 10*3/uL RBC 2.96 L (4.10-5.20) 10*6/uL Hgb 8.1 L (12.0-15.0) g/dL Hct 27.4 L (37.2-46.3) % MCHC 29.6 L (32.0-37.0) g/dL RDW 17.8 H (11.5-14.5) % MPV 8.9 L (9.5-12.2) fL Potassium 3.2 L (3.5-5.1) mmol/L Carbon Dioxide 34 H (22-30) mmol/L Creatinine 0.51 L (0.52-1.04) mg/dL Glucose 111 H (74-99) mg/dL Magnesium 1.5 L (1.6-2.3) mg/dL ALT 35 H (4-34) U/L Total Protein 5.6 L (6.3-8.2) g/dL Albumin 2.9 L (3.5-5.0) g/dL Triglycerides 197.00 H (0.00-149.00) mg/dL HDL Cholesterol 14.30 L (40.00-60.00) mg/dL
[2024-10-23 08:06] LABS: Magnesium 1.8 mg/dL (1.5-2.4)
[2024-10-23 08:07] LABS: Potassium 3.4 mmol/L (3.5-5.5)
[2024-10-23] MEDS: POTASSIUM CHLORIDE ER 20 MEQ TAB.ER PO SCH (08:30)
--- NOTE | 2024-10-23 08:32 | P.PN ---
Subjective Progress Note Date: 10/23/24 Principal diagnosis: Endocarditis, 1.3 cm x 1.3 cm vegetation on the ventricular aspect of the aortic valve on transesophageal echocardiogram, suggestive of infective endocarditis. Past medical history significant for hypertension, hyperlipidemia, atrial fibrillation status post ablation on Eliquis for anticoagulation, congestive heart failure, pulmonary embolus, deep vein thrombosis, osteoarthritis, diabetes mellitus type 2, Achalasia with previous EGD and dilation, interstitial lung disease, morbid obesity with a BMI of 42.3 kg/m, GERD, and remote history of nicotine dependence, quit smoking 13 years ago. The patient was seen and examined in follow-up today October 23, 2024 at her bedside on the sixth floor cardiac observation unit. She is currently sitting up to the bedside edge, is awake, alert, oriented x 3 and is in no acute apparent distress. She denies any complaints of pain or shortness of breath at this time, although she is teary-eyed this morning and is concerned about being discharged and able to afford her medications at home. She remains on 3 L nasal cannula with oxygen saturations 98% and she is achieving 1250 mL on her incentive spirometry with encouragement. A bedside FEV1 was completed yesterday October 22, 2024 which showed a predicted value of 1.14 L which is 38% of predicted value. Per conversation with Dr. Swan from cardiology yesterday, when okay with internal medicine and other consultants the patient can be discharged home with IV antibiotics and undergo a transesophageal echocardiogram as a follow-up. If the patient should need aortic valve replacement in the future she will need to undergo a cardiac catheterization prior to surgery. Preoperative teaching has been reinforced with the patient. Patient also underwent a carotid duplex study yesterday which showed no hemodynamically significant internal carotid artery stenosis bilaterally. Objective - Vital Signs Vital signs: Vital Signs Temp 98.2 F 10/23/24 07:00 Pulse 78 10/23/24 07:00 Resp 18 10/23/24 07:00 BP 147/78 10/23/24 07:00 Pulse Ox 98 10/23/24 07:00 FiO2 Intake & Output 10/22/24 10/23/24 10/23/24 18:59 06:59 18:59 Intake Total 720 Output Total 1 Balance 719 Intake: Oral 720 Output: Urine/Stool Mix 1 Other: Voiding Method Toilet # Voids 1 1 - Exam CONSTITUTIONAL: appears comfortable, cooperative, no apparent acute distress. HEENT: Neck is supple, no JVD, no lymphadenopathy. RESPIRATORY: Lungs sounds essentially clear throughout, diminished to her bilateral bases. Respirations are symmetrical and nonlabored. Currently on 3 L nasal cannula with oxygen saturations 98%, she is achieving 1250 mL on her incentive spirometry with encouragement. Strong cough. CARDIOVASCULAR: Regular rhythm and rate. S1 and S2 present, negative for S3, gallop or murmur. No calf pain or tenderness noted. GASTROINTESTINAL: Abdomen soft, nontender, nondistended. Active bowel sounds present 4 quadrants. Passing flatus. No guarding or rigidity. GENITOURINARY: Continues to void. INTEGUMENTARY: Skin is warm and dry with no evidence of clubbing or cyanosis. NEUROLOGIC: Cranial nerves II through XII intact. No focal deficits. MUSKULOSKELETAL: Able to move all extremities, strength equal bilaterally, generalized weakness. PSYCHIATRIC: Alert and oriented to person place and time, appropriate affect, intact judgment and insight. - Allied health notes Allied health notes reviewed: nursing - Labs CBC & Chem 7: 10/22/24 07:49 10/23/24 04:46 Labs: Abnormal Lab Results - Last 24 Hours (Table) 10/22/24 10/23/24 Range/Units 07:49 04:46 Potassium 3.2 L 3.4 L (3.5-5.1) mmol/L Carbon Dioxide 34 H (22-30) mmol/L Creatinine 0.51 L (0.52-1.04) mg/dL Glucose 111 H (74-99) mg/dL Magnesium 1.5 L (1.6-2.3) mg/dL ALT 35 H (4-34) U/L Total Protein 5.6 L (6.3-8.2) g/dL Albumin 2.9 L (3.5-5.0) g/dL Triglycerides 197.00 H (0.00-149.00) mg/dL HDL Cholesterol 14.30 L (40.00-60.00) mg/dL Microbiology - Last 24 Hours (Table) 10/21/24 10:17 Blood Culture - Preliminary Blood Assessment and Plan Assessment: Endocarditis, 1.3 cm by 1.3 cm vegetation on the aortic valve per transesophageal echocardiogram Enterococcus faecalis bacteremia likely from complicated UTI, blood culture from 10/15/2024 shows no growth after 5 days PFO, per OG results Anemia, unknown etiology History of ileus, general surgery following, likely secondary to recent UTI Atrial fibrillation status post atrial fibrillation ablation 08/2024, pulmonary vein isolation ablation with left atrial septal ablation, on Eliquis for anticoagulation Chronic congestive heart failure Hypertension Hyperlipidemia Diabetes mellitus type 2 Achalasia Morbid obesity with a BMI of 42.3 kg/m Medical debility, patient has been using a walker for ambulating for the past month Remote history of nicotine dependence, quit smoking 13 years ago FEV1 38% of pr edicted value 1.14 L Interstitial lung disease Medical debility, walks with a walker as an outpatient Plan: Preoperative teaching reinforced with patient. FEV1 completed at her bedside yesterday, showed a predicted value of 38% 1.14 L, if the patient would need surgical intervention she would need a full pulmonary function test completed prior. Due to the patient's anemia we will send a stool for occult blood. Encourage use of incentive spirometry 10 times every hour while awake. A 5 m walk test was completed with the patient, the patient had to use a walker with the walk test, time 1: 8.68 seconds, time 2: 7.65 seconds, time 3: 7.70 seconds. Once her preoperative testing has been completed and results obtained an STS risk core will be calculated and discussed with the patient. A clinical frailty score was calculated which equals 3. The patient will not require dental clearance as she is edentulous. The patient will require a heart catheterization prior to being scheduled for cardiac surgery. Medical management of other comorbidities per internal medicine, infectious disease and cardiology services. Prior to surgery her Eliquis will need to be held for 3 days. Antibiotic recommendations per infectious disease. More recommendations to follow based on patient's clinical course. Time with Patient: Greater than 30
--- NOTE | 2024-10-23 10:39 | P.PN ---
Subjective Progress Note Date: 10/23/24 HISTORY OF PRESENTING ILLNESS: Known to Dr. Berry. Past medical history of hypertension obesity type 2 diabetes dyslipidemia. History of DVT PE on anticoagulation with Eliquis. 08/2024 she underwent PVI ablation and left atrial septal ablation with Dr. Berry for atrial fibrillation. 1 week later she presented to the hospital because of palpitation generalized weakness and fatigue. She was noticed to be in atrial flutter with RVR. She converted out of it spontaneously and since then it appears that she is maintaining sinus rhythm. Since that hospital admission she has had 2 hospital visits for UTI. This time she presented because of abdominal pain. She was found to have possible UTI and achalasia this time she is noticed to have Enterococcus faecalis bacteremia. She had echocardiogram done which showed possible concerns of vegetation on aortic valve with moderate regurgitation. She also was noted to have moderate mitral regurgitation and moderate tricuspid regurgitation Admission Vitals: BP 147/82, heart rate 93 bpm Admission Labs: Hb 8.5, BUN 8, creatinine 0.5 Admission EKG: Sinus tachycardia heart rate 100 bpm Imaging: CT abdomen dilated esophagus with concerns of achalasia. Colonic diverticulosis Prior cardiac testing: Echo from 10/15/2024 shows normal LVEF, echogenic area noticed on aortic valve consistent with possible vegetation, moderate aortic regurgitation, moderate mitral and tricuspid regurgitation, moderate pulm hypertension Progress note 10/19/2024 Vitals are reviewed and blood pressure and heart rate are well-controlled. Sinus rhythm Tolerating Lasix and antihypertensive medications we added yesterday. 10/20/2024 Patient seen and examined resting comfortably laying flat in bed post OG. Verbally Dr. Villafana advised that there was a 1.3 cm vegetation noted on the aortic valve. Currently maintained on IV antibiotics and being followed by infectious disease. 10/21/2024 Pt seen and examined sitting up eating breakfast. She denies chest pain/pressure or shortness of breath. Blood pressure 150/64 heart rate 81 afebrile maintaining oxygen saturation on room air. She continues to be maintained on IV ampicillin and Rocephin per infectious disease. 10/22/2024 Patient seen and examined sitting on the edge of the bed in no acute distress. Blood pressure 185/71 heart rate 78 afebrile maintaining oxygen saturation on nasal cannula. Laboratory data reviewed, hemoglobin 8.1, platelets 190, sodium 139, potassium 3.2, creatinine 0.5, TSH 2.0. Repeat blood cultures were taken yesterday and remain pending. She has been seen by CT surgery and they are recommending aortic valve replacement. They have begun preoperative teaching with the patient as well as testing. They are requesting a left heart catheterization. 10/23/2024 Patient seen and examined at bedside this a.m. Blood pressure heart rate and kidney function are optimal. No clinical signs of distal embolization. PHYSICAL EXAMINATION: Neck: Brisk carotid upstroke, no jugular venous distention. Lungs: Clear to auscultation. Heart: Regular rate and rhythm, S1-S2, systolic ejection murmur at the base and soft diastolic murmur, no rub. Abdomen: Soft nontender, positive bowel sounds. Extremities: No edema, intact distal pulses. Neuro: Alert, oritented, no focal deficits. Detailed neuro exam was not performed. 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 Post A-fib ablation 1 week later she had atrial flutter with RVR but spontaneously converted to sinus. Since then she has been maintaining sinus. Chronic HFpEF PLAN: Eliquis 5, Lasix 40, losartan 100 daily. Replace potassium Consider SGLT2 after completing antibiotic course Outpatient follow-up with Dr. Villafana. OG in 6 weeks, and repeat ESR and CRP levels If she has significant regurgitation still has significant mass on the aortic valve we will consider surgery of the aortic valve. At this time patient is cleared from cardiac standpoint otherwise Objective - Vital Signs Vital signs: Vital Signs Temp 98.2 F 10/23/24 07:00 Pulse 78 10/23/24 07:00 Resp 18 10/23/24 07:00 BP 147/78 10/23/24 07:00 Pulse Ox 98 10/23/24 07:00 FiO2 Intake & Output 10/22/24 10/23/24 10/23/24 18:59 06:59 18:59 Intake Total 720 Output Total 1 Balance 719 Intake: Oral 720 Output: Urine/Stool Mix 1 Other: Voiding Method Toilet # Voids 1 1 - Labs CBC & Chem 7: 10/22/24 07:49 10/23/24 04:46 Labs: Abnormal Lab Results - Last 24 Hours (Table) 10/22/24 10/23/24 Range/Units 07:49 04:46 Potassium 3.2 L 3.4 L (3.5-5.1) mmol/L Carbon Dioxide 34 H (22-30) mmol/L Creatinine 0.51 L (0.52-1.04) mg/dL Glucose 111 H (74-99) mg/dL Magnesium 1.5 L (1.6-2.3) mg/dL ALT 35 H (4-34) U/L Total Protein 5.6 L (6.3-8.2) g/dL Albumin 2.9 L (3.5-5.0) g/dL Triglycerides 197.00 H (0.00-149.00) mg/dL HDL Cholesterol 14.30 L (40.00-60.00) mg/dL Microbiology - Last 24 Hours (Table) 10/21/24 10:17 Blood Culture - Preliminary Blood
[2024-10-23] MEDS: MAGNESIUM SULFATE-D5W PMX 1 GM in DEXTROSE/WATER 1 100ML.BAG IVPB ONE (10:43)
[2024-10-23] MEDS: LOSARTAN 50 MG TAB PO SCH (11:44)
--- NOTE | 2024-10-23 13:39 | P.PN ---
Subjective Progress Note Date: 10/23/24 SURGICAL PROGRESS NOTE CHIEF COMPLAINT: Abdominal pain HISTORY OF PRESENT ILLNESS: Patient sitting up at bedside chair. Denies any abdominal pain. Tolerating diet. Having bowel movements. Patient with endocarditis and being followed by cardiothoracic team. PHYSICAL EXAM: VITAL SIGNS: Reviewed. GENERAL: Well-developed in no acute distress. ABDOMEN: Soft. Obese nondistended. Nontender NEUROLOGIC: Alert and oriented. Cranial nerves II through XII grossly intact. ASSESSMENT: 1. Ileus resolved. Likely secondary to recent UTI PLAN: -No surgical intervention planned -Continue good bowel regimen - Surgical service will sign off. Please call with any questions or concerns Physician [employer] In[employer] note has been reviewed by physician. Signing provider agrees with the documented findings, assessment, and plan of care. Objective - Vital Signs Vital signs: Vital Signs Temp 98.2 F 10/23/24 07:00 Pulse 78 10/23/24 07:00 Resp 18 10/23/24 07:00 BP 147/78 10/23/24 07:00 Pulse Ox 98 10/23/24 07:00 FiO2 Intake & Output 10/22/24 10/23/24 10/23/24 18:59 06:59 18:59 Intake Total 720 Output Total 1 Balance 719 Intake: Oral 720 Output: Urine/Stool Mix 1 Other: Voiding Method Toilet # Voids 1 1 - Labs CBC & Chem 7: 10/22/24 07:49 10/23/24 04:46 Labs: Abnormal Lab Results - Last 24 Hours (Table) 10/22/24 10/23/24 Range/Units 07:49 04:46 Potassium 3.2 L 3.4 L (3.5-5.1) mmol/L Carbon Dioxide 34 H (22-30) mmol/L Creatinine 0.51 L (0.52-1.04) mg/dL Glucose 111 H (74-99) mg/dL Magnesium 1.5 L (1.6-2.3) mg/dL ALT 35 H (4-34) U/L Total Protein 5.6 L (6.3-8.2) g/dL Albumin 2.9 L (3.5-5.0) g/dL Triglycerides 197.00 H (0.00-149.00) mg/dL HDL Cholesterol 14.30 L (40.00-60.00) mg/dL Microbiology - Last 24 Hours (Table) 10/21/24 10:17 Blood Culture - Preliminary Blood
--- NOTE | 2024-10-23 15:04 | P.PN ---
Subjective Progress Note Date: 10/22/24 Principal diagnosis: Reason for follow-up is Enterococcus faecalis bacteremia Patient is a 59-year-old female with a past medical history significant for hypertension hyperlipidemia osteoarthritis DVT atrial fibrillation recently treated in the outpatient setting from urgent care with the Bactrim JOSE for UTI presenting to [facility] ER subsequently with persistent symptoms she has been complaining of lower abdominal pain as well as shortness of breath, negative UA but blood cultures came back positive Enterococcus faecalis CT abdominal pelvis no acute intra-abdominal pathology. 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 On today's evaluation that is 10/22/2024,the patient denies any fever or any chills, patient is breathing comfortably on 3 L nasal cannula oxygen the patient denies chest pain shortness of breath and no significant cough, patient denies abdominal pain, no nausea vomiting or diarrhea. Patient did have a white count of 4.14 creatinine 0.51 Objective - Vital Signs Vital signs: Vital Signs Temp 97.7 F 10/22/24 07:00 Pulse 78 10/22/24 07:00 Resp 18 10/22/24 07:00 BP 185/71 10/22/24 07:00 Pulse Ox 98 10/22/24 07:00 FiO2 Intake & Output 10/21/24 10/22/24 10/22/24 18:59 06:59 18:59 Intake Total 118 540 Output Total 2 Balance 116 540 Intake: Oral 118 540 Output: Urine 2 Other: Voiding Method Toilet Toilet # Voids 1 2 # Bowel Movements 1 1 - Exam GENERAL DESCRIPTION: Middle-age female lying in bed in no distress RESPIRATORY SYSTEM: Unlabored breathing , decreased breath sounds at bases HEART: S1 S2 regular rate and rhythm , ABDOMEN: Soft , no tenderness EXTREMITIES: No edema feet - Labs CBC & Chem 7: 10/22/24 07:49 10/23/24 04:46 Labs: Abnormal Lab Results - Last 24 Hours (Table) 10/22/24 10/22/24 Range/Units 07:49 07:49 WBC 4.14 L (4.50-10.00) 10*3/uL RBC 2.96 L (4.10-5.20) 10*6/uL Hgb 8.1 L (12.0-15.0) g/dL Hct 27.4 L (37.2-46.3) % MCHC 29.6 L (32.0-37.0) g/dL RDW 17.8 H (11.5-14.5) % MPV 8.9 L (9.5-12.2) fL Potassium 3.2 L (3.5-5.1) mmol/L Carbon Dioxide 34 H (22-30) mmol/L Creatinine 0.51 L (0.52-1.04) mg/dL Glucose 111 H (74-99) mg/dL Magnesium 1.5 L (1.6-2.3) mg/dL ALT 35 H (4-34) U/L Total Protein 5.6 L (6.3-8.2) g/dL Albumin 2.9 L (3.5-5.0) g/dL Assessment and Plan (1) Abdominal pain Current Visit: Yes Status: Acute Code(s): R10.9 - UNSPECIFIED ABDOMINAL PAIN SNOMED Code(s): 46098998 (2) Bacteremia Current Visit: Yes Status: Acute Code(s): R78.81 - BACTEREMIA SNOMED Code(s): 5222054 (3) Enterococcus faecalis infection Current Visit: Yes Status: Acute Code(s): A49.8 - OTHER BACTERIAL INFECTIONS OF UNSPECIFIED SITE SNOMED Code(s): 066077614 Plan: 1patient presented to hospital with lower abdominal pain to have urinary symptoms recently completed course of Bactrim DS for UTI patient did have a negative UA more likely indicating adequate treatment of underlying UTI she has been complaining some abdominal pain however the patient did have a CT abdominal pelvis that has been negative for any acute process 2patient did have a positive blood culture Enterococcus faecalis which is usually of urinary or GI source however patient did have a negative UA CT abdominal pelvis done without contrast did not show acute intra-abdominal pathology, unfortunately CT abdominal pelvis was done again without oral and IV contrast and still waiting for echocardiogram report to be available as of 10/16/2024 3patient echocardiogram finally completed and reported as possible vegetation to the aortic valve cardiology plan is status post OG completed 10/20/2024 with evidence of aortic valve vegetation but no abscess CT surgery has been consulted following the patient closely 4patient currently being treated with ampicillin and Rocephin, did have a PICC line placed Dictation was produced using [employer] dictation software. please excuse any grammatical, word or spelling errors. Time with Patient: Less than 30
[2024-10-23] MEDS: POTASSIUM CHLORIDE ER 20 MEQ TAB.ER PO STA (22:20)
[2024-10-23] MEDS: MAGNESIUM SULFATE-D5W PMX 1 GM in DEXTROSE/WATER 1 100ML.BAG IVPB SCH (22:21)
--- NOTE | 2024-10-23 23:04 | P.PN ---
Subjective Progress Note Date: 10/23/24 This is a pleasant 59-year-old female who was recently admitted with abdominal pain noted to have a dilated esophagus with ingested contents and achalasia. Patient reports she followed with GI in the outpatient setting many years ago and was told there is not much that can be done to correct this. Patient continues with abdominal pain with general surgery following with no plans of surgical intervention and no endoscopy at this time. Patient did have a blood culture that was positive and growing Enterococcus with infectious disease following. Await repeat cultures to determine clearance of bacteremia. Encouraged increase activity as tolerated with sitting up more frequently in the chair. 10/16/2024 Patient is seen in follow-up today with no acute overnight issues. Patient continues to report some abdominal pain although feels she reports it is gas pains. Patient awaiting repeat cultures and is maintained on ampicillin with infectious disease following as initial blood culture showing Enterococcus faecalis. Awaiting repeat blood cultures to determine bacteremia clearance. General surgery has evaluated the patient with no surgical interventions planned recommending to continue with bowel regimen especially on discharge. 10/17/2024 Patient is seen in follow-up today continues to report abdominal pain. Echo report was resulted and there is some echogenic area noted on the aortic valve consistent with vegetation with mild to moderate aortic regurgitation and moderate pulmonary hypertension along with moderate mitral and mild tricuspid regurgitation noted. Patient previous blood cultures were positive showing Enterococcus and repeat cultures thus far have been negative. Will consult cardiology to discuss the need of possible OG for further evaluation. Patient to continue on IV antibiotics with infectious disease following at this time. Continue current as well as bowel regimen. Patient is afebrile with no reported chest pain or shortness of breath. Encouraging increasing activity as tolerated and getting up more frequently. 10/18/2024 Patient seen in follow-up today with no acute overnight issues noted. Patient to be evaluated by cardiology for possible OG and to further evaluate echo as patient is noted to have positive blood cultures and concerns of vegetation. Patient is continued on antibiotics with infectious disease following and repeat blood cultures remain negative thus far. Patient is afebrile and white count is normal with no reported chest pain or shortness of breath. Encouraged increase activity as tolerated. Will follow-up on repeat labs. 10/19/2024 Patient is seen in follow-up today reporting some nausea and will add Zofran and continue with Protonix. Patient was evaluated by cardiology awaiting to obtain records from previous stress test and/or cardiac catheterization as patient recently underwent ablation in the outpatient setting also on previous admissions. Patient tentatively plan for OG on Sunday with cardiology. Repeat cultures remain negative thus far with infectious disease following maintained on current antibiotics and will continue. Encouraged increased activity as tolerated and will follow-up on repeat labs. To inquire with case management/social work on Sunday regarding treatment plan moving forward and if patient is any further on Medicaid application as patient currently has no insurance. 10/20/2024 Patient is seen and evaluated in follow-up with multiple consultations following including infectious disease as patient did have positive blood cultures with Enterococcus. Patient awaiting to undergo OG today with cardiology following and is currently NPO. Hemoglobin is stable at 8.1 with no active bleeding noted, white count remains within normal limits at 4.97, sodium is 140 with a potassium of 3.6 and creatinine is 0.5. Will await official OG report and discuss further with findings regarding discharge planning as patient may likely need IV antibiotics on discharge. Patient currently has no insurance and apparently has been receiving unemployment which is delaying her receiving insurance. Per social work, patient is to contact [employer] regarding this. 10/21/2024 Patient is seen in follow-up today with no acute overnight issues noted. Patient to receive a PICC line as patient will require IV antibiotics outpatient. Social work currently working with the patient as she has no insurance but has not been receiving insurance as patient is receiving unemployment. Arrangements will need to be made prior to discharge for IV antibiotic therapy as patient was noted to have a positive presentation on OG. Recent repeat blood culture is negative and will continue current regimen. Patient is afebrile with no reports of chest pain or shortness of breath. Patient tolerating diet with occasional nausea and no vomiting noted. Patient has been up and walking although continues with some weakness. Encouraged to increase activity as tolerated and walking multiple times throughout the day 10/22/2024 Patient is seen in follow-up today has received a PICC line currently awaiting a call back from [employer] to be able to initiate insurance as patient currentl y has no insurance. Repeat blood cultures are negative although patient was positive for OG with vegetation on the aortic valve. Cardiology following and has consulted CT surgery for further possible aortic valve replacement. Patient is continued on antibiotics with infectious disease following and will continue. Patient will require cardiac catheterization prior to valve replacement and is undergoing further initial workup. Cardiology recommends negative blood cultures prior to proceeding with catheterization. Repeat blood cultures thus far negative for 4 days. Patient is afebrile with no reports of chest pain or shortness of breath. Patient reports has been up and walking although is significantly weak. Encouraged increased activity as tolerated including sitting up in the chair more frequently. 10/23/2024 Patient is seen in follow-up with multiple consultations following. Cardiology with no plans of OG at this time recommending continue with IV antibiotic therapy for 4 weeks and reevaluation to discuss repeat OG and/or cardiac catheterization to ensure if patient truly needs aortic valve surgery. CT surgery following is undergoing further surgical workup. Patient has received a PICC line and will require IV antibiotics on discharge currently awaiting unemployment office to close her case so she can receive Medicaid. Social work is working diligently with the patient on this. The jones of home care nursing and equipment along with medications is quite expensive and patient unable to afford. Patient reports she is awaiting a call from the unemployment office. Patient is afebrile with no reports of chest pain or shortness of breath. Patient tolerating diet and continues to have bowel movements. Occasional nausea with no vomiting at this time. Review of systems: Constitutional: No reports of fatigue, fever, or chills Cardiovascular: No reports of chest pain or palpitations Respiratory: No reports of shortness of breath or cough GI: reports of occasional nausea, no reports of vomiting, reports improvement in abdominal discomfort and tenderness, continued multiple bowel movements : No reports of dysuria or retention Neurovascular: reports of generalized weakness All medications have been reviewed PHYSICAL EXAMINATION: GENERAL: The patient is awake, alert and oriented x4, Well developed, elderly appearing, morbidly obese HEENT: Pupils are round and equally reacting to light. EOMI. no scleral icterus. No conjunctival pallor. Normocephalic, atraumatic. No pharyngeal erythema. No thyromegaly. CARDIOVASCULAR: S1 and S2 muffled PULMONARY: diminished breath sounds bilaterally with no wheezing or rhonchi noted. ABDOMEN: soft. Mildly tender on exam. Morbidly obese. non-distended, normoactive bowel sounds. No palpable organomegaly. MUSCULOSKELETAL: No joint swelling or deformity. EXTREMITIES: No cyanosis, clubbing, or pedal edema. NEUROLOGICAL: Gross neurological examination did not reveal any focal deficits. Diffuse weakness SKIN: No rashes. Assessment: Abdominal pain, likely secondary to acute ileus, resolved, surgery evaluated with no plans of intervention at this time recommending conservative management chest pain possibly secondary to dilated esophagus with achalasia, ACS ruled out History of chronic achalasia History of recent urinary tract infection, treated outpatient. Bacteremia with culture showing Enterococcus and repeat cultures negative Echo reported with concerns of an echogenic area in the aortic valve consistent with vegetation, normal EF, status post OG 10/20/2024 with a 1.3 x 1.3 cm vegetation noticed on the ventricular aspect of the aortic valve suggestive of infective endocarditis, evidence of PFO noticed as well History of atrial fibrillation with previous history of ablation History of congestive heart failure, not in exacerbation History of DVT/PE Hypertension Hyperlipidemia Morbid obesity with a BMI of 42.3 GI prophylaxis DVT prophylaxis Full code Plan: Recommend to continue with current medications and management with general surgery and infectious disease following. General surgery recommending conservative management with no surgical intervention or endoscopic intervention planned at this time Patient did have positive blood cultures with Enterococcus and infectious disease following with repeat cultures being negative. Patient did receive a PICC line as patient will require outpatient IV antibiotics on discharge Patient did have 2D echo that was noted to have concerns of vegetation on the aortic valve. Cardiology has evaluated the patient and is status post OG revealing a 1.3 cm x 1.3 cm vegetation noticed on the ventricular aspect of the aortic valve suggestive of infective endocarditis with moderate aortic regurgitation no abscess formation noted with mild mitral regurgitation and tricuspid regurgitation as well as evidence of PFO and normal LV size and systolic function. Patient will need to undergo cardiac catheterization after clearance of bacteremia and CT surgery was consulted currently undergoing possible aortic valve replacement workup. Per cardiology there are no plans for repeat OG at this time recommending possible cardiac catheterization outpatient in the next 4 weeks once cultures remain negative, continued IV antibiotics, on discharge. Replace electrolytes per protocol and will follow-up on repeat labs. Monitor CBC. Stable above 8 at this time with no active bleeding noted Encouraged increased activity as tolerated Discussed the case with case management/social work as well as patient currently has no insurance. Apparently Medicaid has been initiated although unable to receive as patient has been receiving unemployment. Per social work, patient is awaiting to speak with unemployment. Patient reports has an appointment on 10/23 at 11:55 AM for return call from on appointment. Patient will need insurance as patient will require IV antibiotics on discharge and likely aortic valve replacement Patient will need documentation from her unemployment office stating that she is not receiving any benefits and has not for a course of 2 weeks for her case to be closed. At that point patient continued to work on Medicaid application The impression and plan of care has been dictated by Nan Zhang, Nurse Practitioner as directed. Dr. Aroldo MD I have performed a history and examination and MDM of this patient, discussed the same with the dictator, and agree with the dictator's assessment and plan as written ,documented as a scribe. Based on total visit time, I have performed more than 50% of the visit. Objective - Vital Signs Vital signs: Vital Signs Temp 98 F 10/23/24 19:31 Pulse 75 10/23/24 19:31 Resp 18 10/23/24 19:31 BP 151/80 10/23/24 19:31 Pulse Ox 95 10/23/24 19:31 FiO2 Intake & Output 10/23/24 10/23/24 10/24/24 06:59 18:59 06:59 Intake Total 720 100 Output Total 1 Balance 719 100 Intake: Oral 720 100 Output: Urine/Stool Mix 1 Other: # Voids 1 3 # Bowel Movements 0 - Labs CBC & Chem 7: 10/22/24 07:49 10/23/24 04:46 Labs: Abnormal Lab Results - Last 24 Hours (Table) 10/23/24 Range/Units 04:46 Potassium 3.4 L (3.5-5.5) mmol/L Microbiology - Last 24 Hours (Table) 10/22/24 09:25 Nasal Screen MRSA/MSSA - Final Nasopharyngeal Swab 10/21/24 10:17 Blood Culture - Preliminary Blood
[2024-10-24 10:41] LABS: Anion Gap 9.60 mmol/L (4.00-12.00); BUN/Creat Ratio 16.60 Ratio (12.00-20.00); Blood Urea Nitrogen 8.3 mg/dL (9.0-27.0); Calcium 9.1 mg/dL (8.7-10.3); Carbon Dioxide 28.4 mmol/L (21.6-31.8); Chloride 103 mmol/L (96-109); Glucose 118 mg/dL (70-110); Magnesium 2.2 mg/dL (1.5-2.4); Potassium 3.9 mmol/L (3.5-5.5); Sodium 141 mmol/L (135-145)
--- NOTE | 2024-10-24 12:09 | XR ---
EXAMINATION TYPE: XR chest 1V portable DATE OF EXAM: 10/24/2024 11:52 AM COMPARISON: 10/12/2024 CLINICAL INDICATION: Female, 59 years old with history of shortness of breath, , FINDINGS: [id number] cardiomegaly. Diffuse interstitial opacities with Lio B lines. There is a small l eft pleural effusion with patchy left basilar opacity. Left PICC tip at the cavoatrial junction. IMPRESSION: CHF with interstitial pulmonary edema. Small left pleural effusion with adjacent atelectasis and/or c onsolidation. [facility], , 10/24/2024 12:07 PM
[2024-10-24] MEDS: CHOLESTYRAMINE RESIN 4 GM PACKET PO SCH (15:57)
[2024-10-24] MEDS: FUROSEMIDE 10 MG/ML 4 ML VIAL IV SCH (16:28)
[2024-10-24] MEDS: ZOLPIDEM 5 MG TAB PO PRN (21:54)
--- NOTE | 2024-10-25 06:43 | P.PN ---
Subjective Progress Note Date: 10/24/24 This is a pleasant 59-year-old female who was recently admitted with abdominal pain noted to have a dilated esophagus with ingested contents and achalasia. Patient reports she followed with GI in the outpatient setting many years ago and was told there is not much that can be done to correct this. Patient continues with abdominal pain with general surgery following with no plans of surgical intervention and no endoscopy at this time. Patient did have a blood culture that was positive and growing Enterococcus with infectious disease following. Await repeat cultures to determine clearance of bacteremia. Encouraged increase activity as tolerated with sitting up more frequently in the chair. 10/16/2024 Patient is seen in follow-up today with no acute overnight issues. Patient continues to report some abdominal pain although feels she reports it is gas pains. Patient awaiting repeat cultures and is maintained on ampicillin with infectious disease following as initial blood culture showing Enterococcus faecalis. Awaiting repeat blood cultures to determine bacteremia clearance. General surgery has evaluated the patient with no surgical interventions planned recommending to continue with bowel regimen especially on discharge. 10/17/2024 Patient is seen in follow-up today continues to report abdominal pain. Echo report was resulted and there is some echogenic area noted on the aortic valve consistent with vegetation with mild to moderate aortic regurgitation and moderate pulmonary hypertension along with moderate mitral and mild tricuspid regurgitation noted. Patient previous blood cultures were positive showing Enterococcus and repeat cultures thus far have been negative. Will consult cardiology to discuss the need of possible OG for further evaluation. Patient to continue on IV antibiotics with infectious disease following at this time. Continue current as well as bowel regimen. Patient is afebrile with no reported chest pain or shortness of breath. Encouraging increasing activity as tolerated and getting up more frequently. 10/18/2024 Patient seen in follow-up today with no acute overnight issues noted. Patient to be evaluated by cardiology for possible OG and to further evaluate echo as patient is noted to have positive blood cultures and concerns of vegetation. Patient is continued on antibiotics with infectious disease following and repeat blood cultures remain negative thus far. Patient is afebrile and white count is normal with no reported chest pain or shortness of breath. Encouraged increase activity as tolerated. Will follow-up on repeat labs. 10/19/2024 Patient is seen in follow-up today reporting some nausea and will add Zofran and continue with Protonix. Patient was evaluated by cardiology awaiting to obtain records from previous stress test and/or cardiac catheterization as patient recently underwent ablation in the outpatient setting also on previous admissions. Patient tentatively plan for OG on Sunday with cardiology. Repeat cultures remain negative thus far with infectious disease following maintained on current antibiotics and will continue. Encouraged increased activity as tolerated and will follow-up on repeat labs. To inquire with case management/social work on Sunday regarding treatment plan moving forward and if patient is any further on Medicaid application as patient currently has no insurance. 10/20/2024 Patient is seen and evaluated in follow-up with multiple consultations following including infectious disease as patient did have positive blood cultures with Enterococcus. Patient awaiting to undergo OG today with cardiology following and is currently NPO. Hemoglobin is stable at 8.1 with no active bleeding noted, white count remains within normal limits at 4.97, sodium is 140 with a potassium of 3.6 and creatinine is 0.5. Will await official OG report and discuss further with findings regarding discharge planning as patient may likely need IV antibiotics on discharge. Patient currently has no insurance and apparently has been receiving unemployment which is delaying her receiving insurance. Per social work, patient is to contact [facility] regarding this. 10/21/2024 Patient is seen in follow-up today with no acute overnight issues noted. Patient to receive a PICC line as patient will require IV antibiotics outpatient. Social work currently working with the patient as she has no insurance but has not been receiving insurance as patient is receiving unemployment. Arrangements will need to be made prior to discharge for IV antibiotic therapy as patient was noted to have a positive presentation on OG. Recent repeat blood culture is negative and will continue current regimen. Patient is afebrile with no reports of chest pain or shortness of breath. Patient tolerating diet with occasional nausea and no vomiting noted. Patient has been up and walking although continues with some weakness. Encouraged to increase activity as tolerated and walking multiple times throughout the day 10/22/2024 Patient is seen in follow-up today has received a PICC line currently awaiting a call back from [facility] to be able to initiate insurance as patient currentl y has no insurance. Repeat blood cultures are negative although patient was positive for OG with vegetation on the aortic valve. Cardiology following and has consulted CT surgery for further possible aortic valve replacement. Patient is continued on antibiotics with infectious disease following and will continue. Patient will require cardiac catheterization prior to valve replacement and is undergoing further initial workup. Cardiology recommends negative blood cultures prior to proceeding with catheterization. Repeat blood cultures thus far negative for 4 days. Patient is afebrile with no reports of chest pain or shortness of breath. Patient reports has been up and walking although is significantly weak. Encouraged increased activity as tolerated including sitting up in the chair more frequently. 10/23/2024 Patient is seen in follow-up with multiple consultations following. Cardiology with no plans of OG at this time recommending continue with IV antibiotic therapy for 4 weeks and reevaluation to discuss repeat OG and/or cardiac catheterization to ensure if patient truly needs aortic valve surgery. CT surgery following is undergoing further surgical workup. Patient has received a PICC line and will require IV antibiotics on discharge currently awaiting unemployment office to close her case so she can receive Medicaid. Social work is working diligently with the patient on this. The jones of home care nursing and equipment along with medications is quite expensive and patient unable to afford. Patient reports she is awaiting a call from the unemployment office. Patient is afebrile with no reports of chest pain or shortness of breath. Patient tolerating diet and continues to have bowel movements. Occasional nausea with no vomiting at this time. 10/24/2024 Patient is seen in follow-up today reporting some mild increase shortness of breath. Patient is maintained on 2 L with oxygen saturations above 96%. Patient is continued on oral Lasix although may benefit from IV Lasix as patient does appear to be edematous. Will obtain a chest x-ray. Patient is maintained on IV antibiotics with infectious disease following and will continue with outpatient IV antibiotics. Social work is following and will follow-up with unemployment and Medicaid after Sunday as patient needs to verify there have been no documented unemployment claims to receive payment for the last 2 weeks. Encouraged increase activity as tolerated recommend elevating lower extremities while at rest. Patient's family brought her compression stockings and and recommend to continue at this time. Review of systems: Constitutional: No reports of fatigue, fever, or chills Cardiovascular: No reports of chest pain or palpitations Respiratory: reports of intermittent shortness of breath, denies cough GI: reports of occasional nausea, no reports of vomiting, reports improvement in abdominal discomfort and tenderness, reports having bowel movements : No reports of dysuria or retention Neurovascular: reports of generalized weakness All medications have been reviewed PHYSICAL EXAMINATION: GENERAL: The patient is awake, alert and oriented x4, Well developed, elderly appearing, morbidly obese HEENT: Pupils are round and equally reacting to light. EOMI. no scleral icterus. No conjunctival pallor. Normocephalic, atraumatic. No pharyngeal erythema. No thyromegaly. CARDIOVASCULAR: S1 and S2 muffled PULMONARY: diminished breath sounds bilaterally with no wheezing or rhonchi noted. ABDOMEN: soft. Mildly tender on exam. Morbidly obese. non-distended, normoac tive bowel sounds. No palpable organomegaly. MUSCULOSKELETAL: No joint swelling or deformity. EXTREMITIES: No cyanosis, clubbing, or pedal edema. NEUROLOGICAL: Gross neurological examination did not reveal any focal deficits. Diffuse weakness SKIN: No rashes. Assessment: Abdominal pain, likely secondary to acute ileus, resolved, surgery evaluated with no plans of intervention at this time recommending conservative management chest pain possibly secondary to dilated esophagus with achalasia, ACS ruled out History of chronic achalasia History of recent urinary tract infection, treated outpatient. Bacteremia with culture showing Enterococcus and repeat cultures negative Echo reported with concerns of an echogenic area in the aortic valve consistent with vegetation, normal EF, status post OG 10/20/2024 with a 1.3 x 1.3 cm vegetation noticed on the ventricular aspect of the aortic valve suggestive of infective endocarditis, evidence of PFO noticed as well History of atrial fibrillation with previous history of ablation History of congestive heart failure, acute exacerbation Acute hypoxic respiratory failure, secondary to above History of DVT/PE Hypertension Hyperlipidemia Morbid obesity with a BMI of 42.3 GI prophylaxis DVT prophylaxis Full code Plan: Recommend to continue with current medications and management with general surgery and infectious disease following. General surgery recommending conservative management with no surgical intervention or endoscopic intervention planned at this time Patient did have positive blood cultures with Enterococcus and infectious disease following with repeat cultures being negative. Patient did receive a PICC line as patient will require outpatient IV antibiotics on discharge Patient did have 2D echo that was noted to have concerns of vegetation on the aortic valve. Cardiology has evaluated the patient and is status post OG revealing a 1.3 cm x 1.3 cm vegetation noticed on the ventricular aspect of the aortic valve suggestive of infective endocarditis with moderate aortic regurgitation no abscess formation noted with mild mitral regurgitation and tricuspid regurgitation as well as evidence of PFO and normal LV size and systolic function. Patient will need to undergo cardiac catheterization after clearance of bacteremia and CT surgery was consulted currently undergoing possible aortic valve replacement workup. Per cardiology there are no plans for repeat OG at this time recommending possible cardiac catheterization outpatient in the next 4 weeks once cultures remain negative, continued IV antibiotics, on discharge. Social work following as patient has no insurance currently and has been receiving unemployment. Patient has not made claims in the last 2 weeks and has not received any monies and awaiting to discuss with unemployment that verification is needed that patient has not made any claims so Medicaid can be initiated. Patient is reporting some shortness of breath and currently on 2 L and does not wear oxygen outpatient. Chest x-ray suggestive of CHF exacerbation. Patient was maintained on oral Lasix and will transition to daily IV Lasix with close monitoring of kidney functions and electrolytes. Recommend to continue elevating lower extremities while at rest and family providing compression stockings. Replace electrolytes per protocol and will follow-up on repeat labs. Monitor C BC. Stable above 8 at this time with no active bleeding noted Encouraged increased activity as tolerated The impression and plan of care has been dictated by Nan Zhang, Nurse Pract itioner as directed. Dr. Aroldo MD I have performed a history and examination and MDM of this patient, discussed the same with the dictator, and agree with the dictator's assessment and plan as written ,documented as a scribe. Based on total visit time, I have performed more than 50% of the visit. Objective - Vital Signs Vital signs: Vital Signs Temp 98.3 F 10/24/24 07:52 Pulse 78 10/24/24 07:52 Resp 16 10/24/24 07:52 BP 166/84 10/24/24 07:52 Pulse Ox 99 10/24/24 07:52 FiO2 Intake & Output 10/23/24 10/24/24 10/24/24 18:59 06:59 18:59 Intake Total 100 Balance 100 Intake: Oral 100 Other: # Voids 3 1 # Bowel Movements 0 1 - Labs CBC & Chem 7: 10/22/24 07:49 10/24/24 06:45 Labs: Microbiology - Last 24 Hours (Table) 10/22/24 09:25 Nasal Screen MRSA/MSSA - Final Nasopharyngeal Swab 10/21/24 10:17 Blood Culture - Preliminary Blood
[2024-10-25 07:54] LABS: Basophils # (A) 0.04 10*3/uL (0.00-0.10); Basophils % (A) 0.8 %; Eosinophils # (A) 0.17 10*3/uL (0.04-0.35); Eosinophils % (A) 3.5 %; HCT 26.8 % (37.2-46.3); HGB 7.8 g/dL (12.0-15.0); Lymphocytes # (A) 0.93 10*3/uL (0.90-5.00); Lymphocytes % (A) 19.1 %; MCH 27.0 pg (27.0-32.0); MCHC 29.1 g/dL (32.0-37.0); MCV 92.7 fL (80.0-97.0); Monocytes # (A) 0.30 10*3/uL (0.20-1.00); Monocytes % (A) 6.1 %; Neutrophils # (A) 3.40 10*3/uL (1.80-7.70); Neutrophils % (A) 69.7 %; Platelet Count 204 10*3/uL (140-440); RBC 2.89 10*6/uL (4.10-5.20); RDW 18.6 % (11.5-14.5); WBC 4.88 10*3/uL (4.50-10.00)
[2024-10-25 08:08] LABS: ALT 49 U/L (4-34); AST 34 U/L (14-36); African American GFR (CKD) >90 (>60 ml/min/1.73 sqM); Albumin 3.2 g/dL (3.5-5.0); Albumin/Globulin Ratio 1.2; Alkaline Phosphatase 94 U/L (38-126); Anion Gap 4 mmol/L; Blood Urea Nitrogen 9 mg/dL (7-17); Calcium 9.6 mg/dL (8.4-10.2); Carbon Dioxide 34 mmol/L (22-30); Chloride 100 mmol/L (98-107); Globulin 2.6 g/dL; Glucose 107 mg/dL (74-99); Magnesium 1.8 mg/dL (1.6-2.3); Non-African American GFR(CKD) >90 (>60 ml/min/1.73 sqM); Potassium 3.9 mmol/L (3.5-5.1); Sodium 138 mmol/L (137-145); Total Protein 5.8 g/dL (6.3-8.2)
--- NOTE | 2024-10-25 09:39 | P.PN ---
Subjective Progress Note Date: 10/23/24 Principal diagnosis: Reason for follow-up is Enterococcus faecalis bacteremia Patient is a 59-year-old female with a past medical history significant for hypertension hyperlipidemia osteoarthritis DVT atrial fibrillation recently treated in the outpatient setting from urgent care with the Bactrisera GARCIA for UTI presenting to [facility] ER subsequently with persistent symptoms she has been complaining of lower abdominal pain as well as shortness of breath, negative UA but blood cultures came back positive Enterococcus faecalis CT abdominal pelvis no acute intra-abdominal pathology. 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 On today's evaluation that is 10/23/2024,the patient remains to be afebrile, patient is on room air not requiring supplemental oxygen and denies any shortness of breath no chest pain or cough.Patient denies having any nausea or vomiting, no abdominal pain and no diarrhea has been reported. No new lab has been obtained today Objective - Vital Signs Vital signs: Vital Signs Temp 98.2 F 10/23/24 14:00 Pulse 66 10/23/24 14:00 Resp 18 10/23/24 14:00 BP 115/56 10/23/24 14:00 Pulse Ox 96 10/23/24 14:00 FiO2 Intake & Output 10/22/24 10/23/24 10/23/24 18:59 06:59 18:59 Intake Total 720 100 Output Total 1 Balance 719 100 Intake: Oral 720 100 Output: Urine/Stool Mix 1 Other: Voiding Method Toilet # Voids 1 1 3 # Bowel Movements 0 - Exam GENERAL DESCRIPTION: Middle-age female lying in bed in no distress RESPIRATORY SYSTEM: Unlabored breathing , decreased breath sounds at bases HEART: S1 S2 regular rate and rhythm , ABDOMEN: Soft , no tenderness EXTREMITIES: No edema feet - Labs CBC & Chem 7: 10/22/24 07:49 10/23/24 04:46 Labs: Abnormal Lab Results - Last 24 Hours (Table) 10/22/24 10/23/24 Range/Units 07:49 04:46 Potassium 3.2 L 3.4 L (3.5-5.1) mmol/L Carbon Dioxide 34 H (22-30) mmol/L Creatinine 0.51 L (0.52-1.04) mg/dL Glucose 111 H (74-99) mg/dL Magnesium 1.5 L (1.6-2.3) mg/dL ALT 35 H (4-34) U/L Total Protein 5.6 L (6.3-8.2) g/dL Albumin 2.9 L (3.5-5.0) g/dL Triglycerides 197.00 H (0.00-149.00) mg/dL HDL Cholesterol 14.30 L (40.00-60.00) mg/dL Microbiology - Last 24 Hours (Table) 10/21/24 10:17 Blood Culture - Preliminary Blood Assessment and Plan (1) Abdominal pain Current Visit: Yes Status: Acute Code(s): R10.9 - UNSPECIFIED ABDOMINAL PAIN SNOMED Code(s): 37962181 (2) Bacteremia Current Visit: Yes Status: Acute Code(s): R78.81 - BACTEREMIA SNOMED Code(s): 6756646 (3) Enterococcus faecalis infection Current Visit: Yes Status: Acute Code(s): A49.8 - OTHER BACTERIAL INFECTIONS OF UNSPECIFIED SITE SNOMED Code(s): 876621492 Plan: 1patient presented to hospital with lower abdominal pain to have urinary symptoms recently completed course of Bactrim DS for UTI patient did have a negative UA more likely indicating adequate treatment of underlying UTI she has been complaining some abdominal pain however the patient did have a CT abdominal pelvis that has been negative for any acute process 2patient did have a positive blood culture Enterococcus faecalis which is usually of urinary or GI source however patient did have a negative UA CT abdominal pelvis done without contrast did not show acute intra-abdominal pathology, unfortunately CT abdominal pelvis was done again without oral and IV contrast and still waiting for echocardiogram report to be available as of 10/16/2024 3patient echocardiogram finally completed and reported as possible vegetation to the aortic valve cardiology plan is status post OG completed 10/20/2024 with evidence of aortic valve vegetation but no abscess CT surgery has been consulted following the patient closely apparently plan is for no surgery at this point as per discussion with the admitting team 4patient currently being treated with ampicillin and Rocephin, did have a PICC line placed waiting for outpatient IV antibiotics arrangement Dictation was produced using [employer] dictation software. please excuse any grammatical, word or spelling errors.
--- NOTE | 2024-10-25 09:41 | P.PN ---
Subjective Progress Note Date: 10/24/24 Principal diagnosis: Reason for follow-up is Enterococcus faecalis bacteremia Patient is a 59-year-old female with a past medical history significant for hypertension hyperlipidemia osteoarthritis DVT atrial fibrillation recently treated in the outpatient setting from urgent care with the Bactrim JOSE for UTI presenting to [facility] ER subsequently with persistent symptoms she has been complaining of lower abdominal pain as well as shortness of breath, negative UA but blood cultures came back positive Enterococcus faecalis CT abdominal pelvis no acute intra-abdominal pathology. 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 On today's evaluation that is 10/24/2024, the patient continues to be afebrile, the patient is on 3 L nasal oxygen and complaining of shortness of breath, the Pt denies having any chest pain or cough, the patient denies having any abdominal pain no vomiting however has been complaining of diarrhea. Patient did have a creatinine 0.5 no CBC was done today chest x-ray CHF with pulmonary edema Objective - Vital Signs Vital signs: Vital Signs Temp 98.3 F 10/24/24 07:17 Pulse 82 10/24/24 07:17 Resp 19 10/24/24 07:17 BP 152/58 10/24/24 07:17 Pulse Ox 90 L 10/24/24 07:17 FiO2 - Exam GENERAL DESCRIPTION: Middle-age female lying in bed in no distress RESPIRATORY SYSTEM: Unlabored breathing , decreased breath sounds at bases HEART: S1 S2 regular rate and rhythm , ABDOMEN: Soft , no tenderness EXTREMITIES: No edema feet - Labs CBC & Chem 7: 11/06/24 06:55 11/06/24 06:55 Labs: Abnormal Lab Results - Last 24 Hours (Table) 10/24/24 10/25/24 10/25/24 Range/Units 06:45 07:16 07:16 RBC 2.89 L (4.10-5.20) 10*6/uL Hgb 7.8 L (12.0-15.0) g/dL Hct 26.8 L (37.2-46.3) % MCHC 29.1 L (32.0-37.0) g/dL RDW 18.6 H (11.5-14.5) % MPV 9.2 L (9.5-12.2) fL Carbon Dioxide 34 H (22-30) mmol/L BUN 8.3 L (9.0-27.0) mg/dL Creatinine 0.5 L (0.6-1.5) mg/dL Glucose 118 H 107 H (70-110) mg/dL ALT 49 H (4-34) U/L Total Protein 5.8 L (6.3-8.2) g/dL Albumin 3.2 L (3.5-5.0) g/dL Microbiology - Last 24 Hours (Table) 10/21/24 10:17 Blood Culture - Preliminary Blood Assessment and Plan (1) Abdominal pain Status: Acute Code(s): R10.9 - UNSPECIFIED ABDOMINAL PAIN SNOMED Code(s): 56693928 (2) Bacteremia Status: Acute Code(s): R78.81 - BACTEREMIA SNOMED Code(s): 9558465 (3) Enterococcus faecalis infection Status: Acute Code(s): A49.8 - OTHER BACTERIAL INFECTIONS OF UNSPECIFIED SITE SNOMED Code(s): 349411964 Plan: 1patient presented to hospital with lower abdominal pain to have urinary sympt oms recently completed course of Bactrim DS for UTI patient did have a negative UA more likely indicating adequate treatment of underlying UTI she has been complaining some abdominal pain however the patient did have a CT abdominal pelvis that has been negative for any acute process 2patient did have a positive blood culture Enterococcus faecalis which is usually of urinary or GI source however patient did have a negative UA CT abdominal pelvis done without contrast did not show acute intra-abdominal pathology, unfortunately CT abdominal pelvis was done again without oral and IV contrast and still waiting for echocardiogram report to be available as of 10/16/2024 3patient echocardiogram finally completed and reported as possible vegetation to the aortic valve cardiology plan is status post OG completed 10/20/2024 with evidence of aortic valve vegetation but no abscess CT surgery has been consulted following the patient closely apparently plan is for no surgery at this point as per discussion with the admitting team 4patient currently being treated with ampicillin and Rocephin, she has been complaining of diarrhea we will add Questran for symptomatic relief encouraged to increase yogurt intake Dictation was produced using [employer] dictation software. please excuse any grammatical, word or spelling errors. Time with Patient: Less than 30
--- NOTE | 2024-10-25 15:32 | P.PN ---
Subjective Progress Note Date: 10/25/24 Principal diagnosis: Reason for follow-up is Enterococcus faecalis bacteremia Patient is a 59-year-old female with a past medical history significant for hypertension hyperlipidemia osteoarthritis DVT atrial fibrillation recently treated in the outpatient setting from urgent care with the Bactrim DS for UTI presenting to [facility] ER subsequently with persistent symptoms she has been complaining of lower abdominal pain as well as shortness of breath, negative UA but blood cultures came back positive Enterococcus faecalis CT abdominal pelvis no acute intra-abdominal pathology. 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 On today's evaluation that is 10/26/2023, patient did have a temperature of 98.2 F this afternoon and denies having any chills, patient is on 3 L nasal oxygen and breathing comfortably no chest pain or cough, the patient did not have any nausea vomiting abdominal pain and recent improvement in her diarrhea. Patient white count is 4.88, creatinine 0.52 blood culture to be has been negative so far Objective - Vital Signs Vital signs: Vital Signs Temp 98.2 F 10/25/24 14:00 Pulse 71 10/25/24 14:00 Resp 18 10/25/24 14:00 BP 135/68 10/25/24 14:00 Pulse Ox 96 10/25/24 14:00 FiO2 Intake & Output 10/24/24 10/25/24 10/25/24 18:59 06:59 18:59 Other: # Voids 1 2 - Exam GENERAL DESCRIPTION: Middle-age female lying in bed in no distress RESPIRATORY SYSTEM: Unlabored breathing , decreased breath sounds at bases HEART: S1 S2 regular rate and rhythm , ABDOMEN: Soft , no tenderness EXTREMITIES: No edema feet - Labs CBC & Chem 7: 10/25/24 07:16 10/25/24 07:16 Labs: Abnormal Lab Results - Last 24 Hours (Table) 10/25/24 10/25/24 Range/Units 07:16 07:16 RBC 2.89 L (4.10-5.20) 10*6/uL Hgb 7.8 L (12.0-15.0) g/dL Hct 26.8 L (37.2-46.3) % MCHC 29.1 L (32.0-37.0) g/dL RDW 18.6 H (11.5-14.5) % MPV 9.2 L (9.5-12.2) fL Carbon Dioxide 34 H (22-30) mmol/L Glucose 107 H (74-99) mg/dL ALT 49 H (4-34) U/L Total Protein 5.8 L (6.3-8.2) g/dL Albumin 3.2 L (3.5-5.0) g/dL Microbiology - Last 24 Hours (Table) 10/21/24 10:17 Blood Culture - Preliminary Blood Assessment and Plan (1) Abdominal pain Current Visit: Yes Status: Acute Code(s): R10.9 - UNSPECIFIED ABDOMINAL PAIN SNOMED Code(s): 90523041 (2) Bacteremia Current Visit: Yes Status: Acute Code(s): R78.81 - BACTEREMIA SNOMED Code(s): 5335740 (3) Enterococcus faecalis infection Current Visit: Yes Status: Acute Code(s): A49.8 - OTHER BACTERIAL INFECTIONS OF UNSPECIFIED SITE SNOMED Code(s): 206921132 Plan: 1patient presented to hospital with lower abdominal pain to have urinary symptoms recently completed course of Bactrim DS for UTI patient did have a negative UA more likely indicating adequate treatment of underlying UTI she has been complaining some abdominal pain however the patient did have a CT abdominal pelvis that has been negative for any acute process 2patient did have a positive blood culture Enterococcus faecalis which is usually of urinary or GI source however patient did have a negative UA CT abdominal pelvis done without contrast did not show acute intra-abdominal pathology, unfortunately CT abdominal pelvis was done again without oral and IV contrast and still waiting for echocardiogram report to be available as of 09/28 3patient echocardiogram finally completed and reported as possible vegetation to the aortic valve cardiology plan is status post OG completed 10/20/2024 with evidence of aortic valve vegetation but no abscess CT surgery has been consulted following the patient closely apparently plan is for no surgery at this point as per discussion with the admitting team 4patient to continue with IV ampicillin and Rocephin, mention improvement diarrhea with requesting to continue and monitor clinical course closely Dictation was produced using [employer] dictation software. please excuse any grammatical, word or spelling errors.
--- NOTE | 2024-10-25 17:38 | PN ---
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 The most recent cultures are negative. The patient is on IV antibiotics. PHYSICAL EXAMINATION: VITAL SIGNS: Pulse 71, blood pressure 130/60, and respirations 18. CHEST: Clear to auscultation. CARDIOVASCULAR: S1 and S2. ABDOMEN: Soft. LABORATORY DATA: Hemoglobin 7.8. ASSESSMENT: 1. 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 2. Abdominal pain with acute ileus. 3. Chest pain possible secondary to dilated esophagus with achalasia. 4. Multiple complex medical issues. RECOMMENDATIONS AND DISCUSSION: I recommend to continue current management and continue symptomatic treatment. Otherwise continue with Rocephin and ampicillin. Recommend repeat labs. Closely follow with Infectious Disease. Guarded prognosis. Further recommendations to follow. MMODL / IJN: [id number] /
[2024-10-26 10:00] LABS: Basophils # (A) 0.04 X 10*3/uL (0.00-0.10); Basophils % (A) 0.9 %; Eosinophils # (A) 0.13 X 10*3/uL (0.04-0.35); Eosinophils % (A) 2.8 %; HCT 26.7 % (37.2-46.3); HGB 7.7 g/dL (12.0-15.0); Immature Grans, Automated 1.30 %; Lymphocytes # (A) 0.91 X 10*3/uL (0.90-5.00); Lymphocytes % (A) 19.4 %; MCH 26.6 pg (27.0-32.0); MCHC 28.8 g/dL (32.0-37.0); MCV 92.4 FL (80.0-97.0); Monocytes # (A) 0.26 X 10*3/uL (0.20-1.00); Monocytes % (A) 5.5 %; NRBC Per 100 WBC 0 X 10*3/uL (0.00-0.01); Neutrophils # (A) 3.30 X 10*3/uL (1.80-7.70); Neutrophils % (A) 70.1 %; Platelet Count 224 X 10*3/uL (140-440); RBC 2.89 X 10*6/uL (4.10-5.20); RDW 18.7 % (11.5-14.5); WBC 4.70 X 10*3/uL (4.50-10.00)
[2024-10-26 10:34] LABS: Anion Gap 9.20 mmol/L (4.00-12.00); BUN/Creat Ratio 22.00 Ratio (12.00-20.00); Blood Urea Nitrogen 11.0 mg/dL (9.0-27.0); Calcium 9.6 mg/dL (8.7-10.3); Carbon Dioxide 29.8 mmol/L (21.6-31.8); Chloride 102 mmol/L (96-109); Glucose 115 mg/dL (70-110); Potassium 3.8 mmol/L (3.5-5.5); Sodium 141 mmol/L (135-145)
--- NOTE | 2024-10-26 22:51 | PN ---
PROGRESS NOTE DATE OF SERVICE: 10/26/2024 SUBJECTIVE: This is a 59-year-old woman who was admitted with multiple medical issues including infective endocarditis on IV antibiotics. No chest pain. No palpitations. PHYSICAL EXAMINATION: VITAL SIGNS: Pulse is 71, blood pressure 130/60, respirations 18. CHEST: Clear to auscultation. CARDIOVASCULAR: S1, S2. ABDOMEN: Soft. LABORATORY DATA: Hemoglobin 7.7. Most recent cultures are negative. ASSESSMENT: 1. Infective endocarditis of the aortic valve, possibly secondary to Enterococcus faecalis, on IV antibiotics. 2. Abdominal pain with acute ileus, present on admission. 3. Chest pain, possibly secondary to dilated esophagus and achalasia. 4. Multiple complex medical issues. RECOMMENDATIONS AND DISCUSSION: I recommend to continue current management and continue with IV antibiotics. cashier manager to evaluate the patient for setting of outpatient IV antibiotics, PICC line. Guarded prognosis. Further recommendations to follow. MMODL / IJN: [id number] /
--- NOTE | 2024-10-27 17:05 | P.PN ---
Subjective Progress Note Date: 10/26/24 Principal diagnosis: Reason for follow-up is Enterococcus faecalis bacteremia Patient is a 59-year-old female with a past medical history significant for hypertension hyperlipidemia osteoarthritis DVT atrial fibrillation recently treated in the outpatient setting from urgent care with the Bactrim DS for UTI presenting to [facility] ER subsequently with persistent symptoms she has been complaining of lower abdominal pain as well as shortness of breath, negative UA but blood cultures came back positive Enterococcus faecalis CT abdominal pelvis no acute intra-abdominal pathology. 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 On today's evaluation that is 10/26/2024, Patient is afebrile patient is currently on 3 L nasal oxygen and breathing comfortably the patient is sleepy in no distress no vomiting or any worsening diarrhea reported by the nursing staff. Patient with 24.70, creatinine 0.5 Objective - Vital Signs Vital signs: Vital Signs Temp 98.6 F 10/26/24 13:15 Pulse 71 10/26/24 13:15 Resp 18 10/26/24 13:15 BP 131/67 10/26/24 13:15 Pulse Ox 95 10/26/24 13:15 FiO2 Intake & Output 10/25/24 10/26/24 10/26/24 18:59 06:59 18:59 Intake Total 440 Balance 440 Intake: Oral 440 Other: Voiding Method Toilet Bedside Commode # Voids 5 4 4 # Bowel Movements 1 - Exam GENERAL DESCRIPTION: Middle-age female lying in bed in no distress RESPIRATORY SYSTEM: Unlabored breathing , decreased breath sounds at bases HEART: S1 S2 regular rate and rhythm , ABDOMEN: Soft , no tenderness EXTREMITIES: No edema feet - Labs CBC & Chem 7: 10/26/24 05:28 10/26/24 05:28 Labs: Abnormal Lab Results - Last 24 Hours (Table) 10/26/24 10/26/24 Range/Units 05:28 05:28 RBC 2.89 L (4.10-5.20) X 10*6/uL Hgb 7.7 L (12.0-15.0) g/dL Hct 26.7 L (37.2-46.3) % MCH 26.6 L (27.0-32.0) pg MCHC 28.8 L (32.0-37.0) g/dL RDW 18.7 H (11.5-14.5) % Immature Gran # 0.06 H (0.00-0.04) X 10*3/uL Creatinine 0.5 L (0.6-1.5) mg/dL BUN/Creatinine Ratio 22.00 H (12.00-20.00) Ratio Glucose 115 H (70-110) mg/dL Assessment and Plan (1) Abdominal pain Current Visit: Yes Status: Acute Code(s): R10.9 - UNSPECIFIED ABDOMINAL PAIN SNOMED Code(s): 61774395 (2) Bacteremia Current Visit: Yes Status: Acute Code(s): R78.81 - BACTEREMIA SNOMED Code(s): 3546251 (3) Enterococcus faecalis infection Current Visit: Yes Status: Acute Code(s): A49.8 - OTHER BACTERIAL INFECTIONS OF UNSPECIFIED SITE SNOMED Code(s): 416162515 Plan: 1patient presented to hospital with lower abdominal pain to have urinary symptoms recently completed course of Bactrim DS for UTI patient did have a negative UA more likely indicating adequate treatment of underlying UTI she has been complaining some abdominal pain however the patient did have a CT abdominal pelvis that has been negative for any acute process 2patient did have a positive blood culture Enterococcus faecalis which is usually of urinary or GI source however patient did have a negative UA CT abdominal pelvis done without contrast did not show acute intra-abdominal pathology, unfortunately CT abdominal pelvis was done again without oral and IV contrast and still waiting for echocardiogram report to be available as of 09/28 3patient echocardiogram finally completed and reported as possible vegetation to the aortic valve cardiology plan is status post OG completed 10/20/2024 with evidence of aortic valve vegetation but no abscess CT surgery has been consulted following the patient closely apparently plan is for no surgery at this point as per discussion with the admitting team 4patient currently being treated with IV ampicillin and Rocephin, and continue Questran for symptomatic relief of diarrhea Dictation was produced using [employer] dictation software. please excuse any grammatical, word or spelling errors. Time with Patient: Less than 30
--- NOTE | 2024-10-27 17:06 | P.PN ---
Subjective Progress Note Date: 10/27/24 Principal diagnosis: Reason for follow-up is Enterococcus faecalis bacteremia Patient is a 59-year-old female with a past medical history significant for hypertension hyperlipidemia osteoarthritis DVT atrial fibrillation recently treated in the outpatient setting from urgent care with the Kevinrisera GARCIA for UTI presenting to [facility] ER subsequently with persistent symptoms she has been complaining of lower abdominal pain as well as shortness of breath, negative UA but blood cultures came back positive Enterococcus faecalis CT abdominal pelvis no acute intra-abdominal pathology. 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 On today's evaluation that is 10/27/2024, patient has been afebrile, patient is breathing comfortably and is currently on room air, patient denies having any chest pain and cough, patient denies nausea vomiting still complaining of diarrhea and urinary frequency because of Lasix. No new lab has been obtained today Objective - Vital Signs Vital signs: Vital Signs Temp 98.6 F 10/27/24 14:10 Pulse 71 10/27/24 14:10 Resp 18 10/27/24 14:10 BP 137/67 10/27/24 14:10 Pulse Ox 97 10/27/24 14:10 FiO2 Intake & Output 10/26/24 10/27/24 10/27/24 18:59 06:59 18:59 Intake Total 678 25 Balance 678 25 Intake: Oral 678 25 Other: Voiding Method Toilet Bedside Commode # Voids 4 4 4 # Bowel Movements 1 1 - Exam GENERAL DESCRIPTION: Middle-age female lying in bed in no distress RESPIRATORY SYSTEM: Unlabored breathing , decreased breath sounds at bases HEART: S1 S2 regular rate and rhythm , ABDOMEN: Soft , no tenderness EXTREMITIES: No edema feet - Labs CBC & Chem 7: 10/26/24 05:28 10/26/24 05:28 Labs: Microbiology - Last 24 Hours (Table) 10/21/24 10:17 Blood Culture - Final Blood Assessment and Plan (1) Abdominal pain Current Visit: Yes Status: Acute Code(s): R10.9 - UNSPECIFIED ABDOMINAL PAIN SNOMED Code(s): 29627294 (2) Bacteremia Current Visit: Yes Status: Acute Code(s): R78.81 - BACTEREMIA SNOMED Code(s): 4107257 (3) Enterococcus faecalis infection Current Visit: Yes Status: Acute Code(s): A49.8 - OTHER BACTERIAL INFECTIONS OF UNSPECIFIED SITE SNOMED Code(s): 171752197 Plan: 1patient presented to hospital with lower abdominal pain to have urinary symptoms recently completed course of Bactrim DS for UTI patient did have a negative UA more likely indicating adequate treatment of underlying UTI she has been complaining some abdominal pain however the patient did have a CT abdominal pelvis that has been negative for any acute process 2patient did have a positive blood culture Enterococcus faecalis which is usually of urinary or GI source however patient did have a negative UA CT abdominal pelvis done without contrast did not show acute intra-abdominal pathology, unfortunately CT abdominal pelvis was done again without oral and IV contrast and still waiting for echocardiogram report to be available as of 10/16/2024 3patient echocardiogram finally completed and reported as possible vegetation to the aortic valve cardiology plan is status post OG completed 10/20/2024 with evidence of aortic valve vegetation but no abscess CT surgery has been consulted following the patient closely apparently plan is for no surgery at this point as per discussion with the admitting team 4patient to continue IV ampicillin and Rocephin, and continue Questran for symptomatic relief of diarrhea encouraged to increase her probiotic and yogurt intake Dictation was produced using [employer] dictation software. please excuse any grammatical, word or spelling errors. Time with Patient: Less than 30
--- NOTE | 2024-10-28 05:03 | P.PN ---
Subjective Progress Note Date: 10/27/24 This is a pleasant 59-year-old female who was recently admitted with abdominal pain noted to have a dilated esophagus with ingested contents and achalasia. Patient reports she followed with GI in the outpatient setting many years ago and was told there is not much that can be done to correct this. Patient continues with abdominal pain with general surgery following with no plans of surgical intervention and no endoscopy at this time. Patient did have a blood culture that was positive and growing Enterococcus with infectious disease following. Await repeat cultures to determine clearance of bacteremia. Encouraged increase activity as tolerated with sitting up more frequently in the chair. 10/16/2024 Patient is seen in follow-up today with no acute overnight issues. Patient continues to report some abdominal pain although feels she reports it is gas pains. Patient awaiting repeat cultures and is maintained on ampicillin with infectious disease following as initial blood culture showing Enterococcus faecalis. Awaiting repeat blood cultures to determine bacteremia clearance. General surgery has evaluated the patient with no surgical interventions planned recommending to continue with bowel regimen especially on discharge. 10/17/2024 Patient is seen in follow-up today continues to report abdominal pain. Echo report was resulted and there is some echogenic area noted on the aortic valve consistent with vegetation with mild to moderate aortic regurgitation and moderate pulmonary hypertension along with moderate mitral and mild tricuspid regurgitation noted. Patient previous blood cultures were positive showing Enterococcus and repeat cultures thus far have been negative. Will consult cardiology to discuss the need of possible OG for further evaluation. Patient to continue on IV antibiotics with infectious disease following at this time. Continue current as well as bowel regimen. Patient is afebrile with no reported chest pain or shortness of breath. Encouraging increasing activity as tolerated and getting up more frequently. 10/18/2024 Patient seen in follow-up today with no acute overnight issues noted. Patient to be evaluated by cardiology for possible OG and to further evaluate echo as patient is noted to have positive blood cultures and concerns of vegetation. Patient is continued on antibiotics with infectious disease following and repeat blood cultures remain negative thus far. Patient is afebrile and white count is normal with no reported chest pain or shortness of breath. Encouraged increase activity as tolerated. Will follow-up on repeat labs. 10/19/2024 Patient is seen in follow-up today reporting some nausea and will add Zofran and continue with Protonix. Patient was evaluated by cardiology awaiting to obtain records from previous stress test and/or cardiac catheterization as patient recently underwent ablation in the outpatient setting also on previous admissions. Patient tentatively plan for OG on Sunday with cardiology. Repeat cultures remain negative thus far with infectious disease following maintained on current antibiotics and will continue. Encouraged increased activity as tolerated and will follow-up on repeat labs. To inquire with case management/social work on Sunday regarding treatment plan moving forward and if patient is any further on Medicaid application as patient currently has no insurance. 10/20/2024 Patient is seen and evaluated in follow-up with multiple consultations following including infectious disease as patient did have positive blood cultures with Enterococcus. Patient awaiting to undergo OG today with cardiology following and is currently NPO. Hemoglobin is stable at 8.1 with no active bleeding noted, white count remains within normal limits at 4.97, sodium is 140 with a potassium of 3.6 and creatinine is 0.5. Will await official OG report and discuss further with findings regarding discharge planning as patient may likely need IV antibiotics on discharge. Patient currently has no insurance and apparently has been receiving unemployment which is delaying her receiving insurance. Per social work, patient is to contact [employer] regarding this. 10/21/2024 Patient is seen in follow-up today with no acute overnight issues noted. Patient to receive a PICC line as patient will require IV antibiotics outpatient. Social work currently working with the patient as she has no insurance but has not been receiving insurance as patient is receiving unemployment. Arrangements will need to be made prior to discharge for IV antibiotic therapy as patient was noted to have a positive presentation on OG. Recent repeat blood culture is negative and will continue current regimen. Patient is afebrile with no reports of chest pain or shortness of breath. Patient tolerating diet with occasional nausea and no vomiting noted. Patient has been up and walking although continues with some weakness. Encouraged to increase activity as tolerated and walking multiple times throughout the day 10/22/2024 Patient is seen in follow-up today has received a PICC line currently awaiting a call back from [employer] to be able to initiate insurance as patient currentl y has no insurance. Repeat blood cultures are negative although patient was positive for OG with vegetation on the aortic valve. Cardiology following and has consulted CT surgery for further possible aortic valve replacement. Patient is continued on antibiotics with infectious disease following and will continue. Patient will require cardiac catheterization prior to valve replacement and is undergoing further initial workup. Cardiology recommends negative blood cultures prior to proceeding with catheterization. Repeat blood cultures thus far negative for 4 days. Patient is afebrile with no reports of chest pain or shortness of breath. Patient reports has been up and walking although is significantly weak. Encouraged increased activity as tolerated including sitting up in the chair more frequently. 10/23/2024 Patient is seen in follow-up with multiple consultations following. Cardiology with no plans of OG at this time recommending continue with IV antibiotic therapy for 4 weeks and reevaluation to discuss repeat OG and/or cardiac catheterization to ensure if patient truly needs aortic valve surgery. CT surgery following is undergoing further surgical workup. Patient has received a PICC line and will require IV antibiotics on discharge currently awaiting unemployment office to close her case so she can receive Medicaid. Social work is working diligently with the patient on this. The jones of home care nursing and equipment along with medications is quite expensive and patient unable to afford. Patient reports she is awaiting a call from the unemployment office. Patient is afebrile with no reports of chest pain or shortness of breath. Patient tolerating diet and continues to have bowel movements. Occasional nausea with no vomiting at this time. 10/24/2024 Patient is seen in follow-up today reporting some mild increase shortness of breath. Patient is maintained on 2 L with oxygen saturations above 96%. Patient is continued on oral Lasix although may benefit from IV Lasix as patient does appear to be edematous. Will obtain a chest x-ray. Patient is maintained on IV antibiotics with infectious disease following and will continue with outpatient IV antibiotics. Social work is following and will follow-up with unemployment and Medicaid after Sunday as patient needs to verify there have been no documented unemployment claims to receive payment for the last 2 weeks. Encouraged increase activity as tolerated recommend elevating lower extremities while at rest. Patient's family brought her compression stockings and and recommend to continue at this time. 10/27/2024 Patient is seen in follow-up today continued on antibiotics with infectious disease following. Patient to continue on IV Lasix for now as there is significant lower extremity swelling noted. Patient did have compression stockings on although was removed and patient is lower extremity dependent while sitting up in the chair. Encouraged elevating while at rest and continued compression stocking use. Patient has received paperwork regarding no documented claims on unemployment to provide to the Medicaid to receive insurance. This is pending and will need to determine if insurance has been activated to ensure safe discharge planning. Social work is following and will follow daily with Medicaid maintenance representative and also to arrange for outpatient IV antibiotic therapy. Review of systems: Constitutional: No reports of fatigue, fever, or chills Cardiovascular: No reports of chest pain or palpitations Respiratory: reports of intermittent shortness of breath, denies cough GI: reports of occasional nausea, no reports of vomiting, reports improvement in abdominal discomfort and tenderness, reports having bowel movements : No reports of dysuria or retention Neurovascular: reports of generalized weakness All medications have been reviewed PHYSICAL EXAMINATION: GENERAL: The patient is awake, alert and oriented x4, Well developed, elderly appearing, morbidly obese HEENT: Pupils are round and equally reacting to light. EOMI. no scleral icterus. No conjunctival pallor. Normocephalic, atraumatic. No pharyngeal erythema. No thyromegaly. CARDIOVASCULAR: S1 and S2 muffled PULMONARY: diminished breath sounds bilaterally with no wheezing or rhonchi noted. ABDOMEN: soft. Mildly tender on exam. Morbidly obese. non-distended, normoactive bowel sounds. No palpable organomegaly. MUSCULOSKELETAL: No joint swelling or deformity. EXTREMITIES: No cyanosis, clubbing, bilateral lower extremity edema noted NEUROLOGICAL: Gross neurological examination did not reveal any focal deficits. Diffuse weakness SKIN: No rashes. Assessment: Abdominal pain, likely secondary to acute ileus, resolved, surgery evaluated with no plans of intervention at this time recommending conservative management chest pain possibly secondary to dilated esophagus with achalasia, ACS ruled out History of chronic achalasia History of recent urinary tract infection, treated outpatient. Bacteremia with culture showing Enterococcus and repeat cultures negative Echo reported with concerns of an echogenic area in the aortic valve consistent with vegetation, normal EF, status post OG 10/20/2024 with a 1.3 x 1.3 cm vegetation noticed on the ventricular aspect of the aortic valve suggestive of infective endocarditis, evidence of PFO noticed as well History of atrial fibrillation with previous history of ablation History of congestive heart failure, acute exacerbation Acute hypoxic respiratory failure, secondary to above History of DVT/PE Hypertension Hyperlipidemia Morbid obesity with a BMI of 42.3 GI prophylaxis DVT prophylaxis Full code Plan: Recommend to continue with current medications and management with general surgery and infectious disease following. General surgery has evaluated the patient and patient is having bowel movements and denies any further abdominal pain. General surgery recommending outpatient follow-up and has signed off Patient did have positive blood cultures with Enterococcus and infectious disease following with repeat cultures being negative. Patient did receive a PICC line as patient will require outpatient IV antibiotics on discharge Patient did have 2D echo that was noted to have concerns of vegetation on the aortic valve. Cardiology has evaluated the patient and is status post OG revealing a 1.3 cm x 1.3 cm vegetation noticed on the ventricular aspect of the aortic valve suggestive of infective endocarditis with moderate aortic regurgitation no abscess formation noted with mild mitral regurgitation and tricuspid regurgitation as well as evidence of PFO and normal LV size and systolic function. Patient will need to undergo cardiac catheterization after clearance of bacteremia and CT surgery was consulted currently undergoing possible aortic valve replacement workup. Per cardiology there are no plans for repeat OG at this time recommending possible cardiac catheterization outpatient in the next 4 weeks once cultures remain negative, continued IV antibiotics, on discharge. Social work following as patient has no insurance currently and has been receiving unemployment. Patient has not made claims in the last 2 weeks and has not received any monies and has received a letter from [employer] reporting she has not made any claims over the last 2 weeks and this was provided to Medicaid maintenance representative and awaiting to have Medicaid initiated to be able to afford IV antibiotics and home care on discharge. This remains pending and we will follow-up on daily Patient continues to have significant lower extremity edema although nonpitting and has been encouraged to continue with compression stockings which are currently off and also was maintained on IV Lasix daily and will continue. Will follow labs closely and replace electrolytes per protocol Encouraged increased activity as tolerated The impression and plan of care has been dictated by Nan Zhang, Nurse Practitioner as directed. Dr. Mickey MD I have performed a history and examination and MDM of this patient, discussed the same with the dictator, and agree with the dictator's assessment and plan as written ,documented as a scribe. Based on total visit time, I have performed more than 50% of the visit. Objective - Vital Signs Vital signs: Vital Signs Temp 98.6 F 10/27/24 14:10 Pulse 71 10/27/24 14:10 Resp 18 10/27/24 14:10 BP 137/67 10/27/24 14:10 Pulse Ox 97 10/27/24 14:10 FiO2 Intake & Output 06/10/27/24 10/27/24 18:59 06:59 18:59 Intake Total 678 25 Balance 678 25 Intake: Oral 678 25 Other: Voiding Method Toilet Bedside Commode # Voids 4 4 4 # Bowel Movements 1 1 - Labs CBC & Chem 7: 10/26/24 05:28 10/26/24 05:28 Labs: Microbiology - Last 24 Hours (Table) 10/21/24 10:17 Blood Culture - Final Blood
--- NOTE | 2024-10-28 15:51 | P.PN ---
Subjective Progress Note Date: 10/28/24 Principal diagnosis: Reason for follow-up is Enterococcus faecalis bacteremia Patient is a 59-year-old female with a past medical history significant for hypertension hyperlipidemia osteoarthritis DVT atrial fibrillation recently treated in the outpatient setting from urgent care with the [facility] for UTI presenting to [facility] ER subsequently with persistent symptoms she has been complaining of lower abdominal pain as well as shortness of breath, negative UA but blood cultures came back positive Enterococcus faecalis CT abdominal pelvis no acute intra-abdominal pathology. 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 On today's evaluation that is 10/28/2024, Patient is afebrile this morning patient denies having any chest pain shortness of breath or cough, the patient is currently on 2 L nasal oxygen, patient denies any abdominal pain, diarrhea has decreased in intensity, no nausea no vomiting. No new lab has been obtained today Objective - Vital Signs Vital signs: Vital Signs Temp 98.2 F 10/28/24 14:00 Pulse 59 L 10/28/24 14:00 Resp 16 10/28/24 14:00 BP 97/51 10/28/24 14:00 Pulse Ox 98 10/28/24 14:00 FiO2 Intake & Output 10/27/24 10/28/24 10/28/24 18:59 06:59 18:59 Intake Total 25 236 Balance 25 236 Intake: Oral 25 236 Other: Voiding Method Toilet Bedside Commode # Voids 1 3 2 # Bowel Movements 1 2 2 - Exam GENERAL DESCRIPTION: Middle-age female lying in bed in no distress RESPIRATORY SYSTEM: Unlabored breathing , decreased breath sounds at bases HEART: S1 S2 regular rate and rhythm , ABDOMEN: Soft , no tenderness EXTREMITIES: No edema feet - Labs CBC & Chem 7: 10/26/24 05:28 10/26/24 05:28 Assessment and Plan (1) Abdominal pain Current Visit: Yes Status: Acute Code(s): R10.9 - UNSPECIFIED ABDOMINAL PAIN SNOMED Code(s): 97422316 (2) Bacteremia Current Visit: Yes Status: Acute Code(s): R78.81 - BACTEREMIA SNOMED Code(s): 2697286 (3) Enterococcus faecalis infection Current Visit: Yes Status: Acute Code(s): A49.8 - OTHER BACTERIAL INFECTIONS OF UNSPECIFIED SITE SNOMED Code(s): 292638873 Plan: 1patient presented to hospital with lower abdominal pain to have urinary symptoms recently completed course of Bactrim DS for UTI patient did have a negative UA more likely indicating adequate treatment of underlying UTI she has been complaining some abdominal pain however the patient did have a CT abdominal pelvis that has been negative for any acute process 2patient did have a positive blood culture Enterococcus faecalis which is usually of urinary or GI source however patient did have a negative UA CT abdominal pelvis done without contrast did not show acute intra-abdominal pathology, unfortunately CT abdominal pelvis was done again without oral and IV contrast and still waiting for echocardiogram report to be available as of 10/16/2024 3patient echocardiogram finally completed and reported as possible vegetation to the aortic valve cardiology plan is status post OG completed 10/20/2024 with evidence of aortic valve vegetation but no abscess CT surgery has been consulted following the patient closely apparently plan is for no surgery at this point as per discussion with the admitting team 4patient currently waiting for outpatient IV antibiotic management as the patient has insurance issue, to continue IV ampicillin and Rocephin, and continue Questran for symptomatic relief of diarrhea. Dictation was produced using [employer] dictation software. please excuse any grammatical, word or spelling errors. Time with Patient: Less than 30
[2024-10-29 08:27] LABS: Basophils # (A) 0.04 X 10*3/uL (0.00-0.10); Basophils % (A) 1.0 %; Eosinophils # (A) 0.20 X 10*3/uL (0.04-0.35); Eosinophils % (A) 4.8 %; HCT 28.9 % (37.2-46.3); HGB 8.2 g/dL (12.0-15.0); Immature Grans, Automated 1.40 %; Lymphocytes # (A) 1.01 X 10*3/uL (0.90-5.00); Lymphocytes % (A) 24.2 %; MCH 26.7 pg (27.0-32.0); MCHC 28.4 g/dL (32.0-37.0); MCV 94.1 FL (80.0-97.0); Monocytes # (A) 0.30 X 10*3/uL (0.20-1.00); Monocytes % (A) 7.2 %; NRBC Per 100 WBC 0 X 10*3/uL (0.00-0.01); Neutrophils # (A) 2.57 X 10*3/uL (1.80-7.70); Neutrophils % (A) 61.4 %; Platelet Count 210 X 10*3/uL (140-440); RBC 3.07 X 10*6/uL (4.10-5.20); RDW 19.0 % (11.5-14.5); WBC 4.18 X 10*3/uL (4.50-10.00)
[2024-10-29 08:34] LABS: Anion Gap 9.30 mmol/L (4.00-12.00); BUN/Creat Ratio 30.20 Ratio (12.00-20.00); Blood Urea Nitrogen 15.1 mg/dL (9.0-27.0); Calcium 9.3 mg/dL (8.7-10.3); Carbon Dioxide 26.7 mmol/L (21.6-31.8); Chloride 106 mmol/L (96-109); Glucose 109 mg/dL (70-110); Magnesium 1.9 mg/dL (1.5-2.4); Potassium 3.9 mmol/L (3.5-5.5); Sodium 142 mmol/L (135-145)
--- NOTE | 2024-10-29 09:17 | P.PN ---
Subjective Progress Note Date: 10/28/24 This is a pleasant 59-year-old female who was recently admitted with abdominal pain noted to have a dilated esophagus with ingested contents and achalasia. Patient reports she followed with GI in the outpatient setting many years ago and was told there is not much that can be done to correct this. Patient continues with abdominal pain with general surgery following with no plans of surgical intervention and no endoscopy at this time. Patient did have a blood culture that was positive and growing Enterococcus with infectious disease following. Await repeat cultures to determine clearance of bacteremia. Encouraged increase activity as tolerated with sitting up more frequently in the chair. 10/16/2024 Patient is seen in follow-up today with no acute overnight issues. Patient continues to report some abdominal pain although feels she reports it is gas pains. Patient awaiting repeat cultures and is maintained on ampicillin with infectious disease following as initial blood culture showing Enterococcus faecalis. Awaiting repeat blood cultures to determine bacteremia clearance. General surgery has evaluated the patient with no surgical interventions planned recommending to continue with bowel regimen especially on discharge. 10/17/2024 Patient is seen in follow-up today continues to report abdominal pain. Echo report was resulted and there is some echogenic area noted on the aortic valve consistent with vegetation with mild to moderate aortic regurgitation and moderate pulmonary hypertension along with moderate mitral and mild tricuspid regurgitation noted. Patient previous blood cultures were positive showing Enterococcus and repeat cultures thus far have been negative. Will consult cardiology to discuss the need of possible OG for further evaluation. Patient to continue on IV antibiotics with infectious disease following at this time. Continue current as well as bowel regimen. Patient is afebrile with no reported chest pain or shortness of breath. Encouraging increasing activity as tolerated and getting up more frequently. 10/18/2024 Patient seen in follow-up today with no acute overnight issues noted. Patient to be evaluated by cardiology for possible OG and to further evaluate echo as patient is noted to have positive blood cultures and concerns of vegetation. Patient is continued on antibiotics with infectious disease following and repeat blood cultures remain negative thus far. Patient is afebrile and white count is normal with no reported chest pain or shortness of breath. Encouraged increase activity as tolerated. Will follow-up on repeat labs. 10/19/2024 Patient is seen in follow-up today reporting some nausea and will add Zofran and continue with Protonix. Patient was evaluated by cardiology awaiting to obtain records from previous stress test and/or cardiac catheterization as patient recently underwent ablation in the outpatient setting also on previous admissions. Patient tentatively plan for OG on Sunday with cardiology. Repeat cultures remain negative thus far with infectious disease following maintained on current antibiotics and will continue. Encouraged increased activity as tolerated and will follow-up on repeat labs. To inquire with case management/social work on Sunday regarding treatment plan moving forward and if patient is any further on Medicaid application as patient currently has no insurance. 10/20/2024 Patient is seen and evaluated in follow-up with multiple consultations following including infectious disease as patient did have positive blood cultures with Enterococcus. Patient awaiting to undergo OG today with cardiology following and is currently NPO. Hemoglobin is stable at 8.1 with no active bleeding noted, white count remains within normal limits at 4.97, sodium is 140 with a potassium of 3.6 and creatinine is 0.5. Will await official OG report and discuss further with findings regarding discharge planning as patient may likely need IV antibiotics on discharge. Patient currently has no insurance and apparently has been receiving unemployment which is delaying her receiving insurance. Per social work, patient is to contact [employer] regarding this. 10/21/2024 Patient is seen in follow-up today with no acute overnight issues noted. Patient to receive a PICC line as patient will require IV antibiotics outpatient. Social work currently working with the patient as she has no insurance but has not been receiving insurance as patient is receiving unemployment. Arrangements will need to be made prior to discharge for IV antibiotic therapy as patient was noted to have a positive presentation on OG. Recent repeat blood culture is negative and will continue current regimen. Patient is afebrile with no reports of chest pain or shortness of breath. Patient tolerating diet with occasional nausea and no vomiting noted. Patient has been up and walking although continues with some weakness. Encouraged to increase activity as tolerated and walking multiple times throughout the day 10/22/2024 Patient is seen in follow-up today has received a PICC line currently awaiting a call back from [employer] to be able to initiate insurance as patient currentl y has no insurance. Repeat blood cultures are negative although patient was positive for OG with vegetation on the aortic valve. Cardiology following and has consulted CT surgery for further possible aortic valve replacement. Patient is continued on antibiotics with infectious disease following and will continue. Patient will require cardiac catheterization prior to valve replacement and is undergoing further initial workup. Cardiology recommends negative blood cultures prior to proceeding with catheterization. Repeat blood cultures thus far negative for 4 days. Patient is afebrile with no reports of chest pain or shortness of breath. Patient reports has been up and walking although is significantly weak. Encouraged increased activity as tolerated including sitting up in the chair more frequently. 10/23/2024 Patient is seen in follow-up with multiple consultations following. Cardiology with no plans of OG at this time recommending continue with IV antibiotic therapy for 4 weeks and reevaluation to discuss repeat OG and/or cardiac catheterization to ensure if patient truly needs aortic valve surgery. CT surgery following is undergoing further surgical workup. Patient has received a PICC line and will require IV antibiotics on discharge currently awaiting unemployment office to close her case so she can receive Medicaid. Social work is working diligently with the patient on this. The jones of home care nursing and equipment along with medications is quite expensive and patient unable to afford. Patient reports she is awaiting a call from the unemployment office. Patient is afebrile with no reports of chest pain or shortness of breath. Patient tolerating diet and continues to have bowel movements. Occasional nausea with no vomiting at this time. 10/24/2024 Patient is seen in follow-up today reporting some mild increase shortness of breath. Patient is maintained on 2 L with oxygen saturations above 96%. Patient is continued on oral Lasix although may benefit from IV Lasix as patient does appear to be edematous. Will obtain a chest x-ray. Patient is maintained on IV antibiotics with infectious disease following and will continue with outpatient IV antibiotics. Social work is following and will follow-up with unemployment and Medicaid after Sunday as patient needs to verify there have been no documented unemployment claims to receive payment for the last 2 weeks. Encouraged increase activity as tolerated recommend elevating lower extremities while at rest. Patient's family brought her compression stockings and and recommend to continue at this time. 10/27/2024 Patient is seen in follow-up today continued on antibiotics with infectious disease following. Patient to continue on IV Lasix for now as there is significant lower extremity swelling noted. Patient did have compression stockings on although was removed and patient is lower extremity dependent while sitting up in the chair. Encouraged elevating while at rest and continued compression stocking use. Patient has received paperwork regarding no documented claims on unemployment to provide to the Medicaid to receive insurance. This is pending and will need to determine if insurance has been activated to ensure safe discharge planning. Social work is following and will follow daily with Medicaid corporate sales representative and also to arrange for outpatient IV antibiotic therapy. 10/28/2024 Patient is seen in follow-up today maintained on antibiotics and swelling of the lower extremities is slightly improved we will continue with IV Lasix and follow-up on repeat labs. Replace electrolytes per protocol. Patient reports is tolerating diet with small frequent meals and no nausea or vomiting noted. Patient does have a PICC line and is awaiting for insurance approval to initiate Medicaid so patient can discharge home on continued IV antibiotic therapy due to a vegetation on the aortic valve. Patient will need extensive outpatient follow-up with cardiology and CT surgery along with infectious disease. Social work is following and being updated daily. Review of systems: Constitutional: No reports of fatigue, fever, or chills Cardiovascular: No reports of chest pain or palpitations Respiratory: reports of intermittent shortness of breath, denies cough GI: reports of occasional nausea, no reports of vomiting, reports improvement in abdominal discomfort and tenderness, reports having bowel movements : No reports of dysuria or retention Neurovascular: reports of generalized weakness All medications have been reviewed PHYSICAL EXAMINATION: GENERAL: The patient is awake, alert and oriented x4, Well developed, elderly appearing, morbidly obese HEENT: Pupils are round and equally reacting to light. EOMI. no scleral icterus. No conjunctival pallor. Normocephalic, atraumatic. No pharyngeal erythema. No thyromegaly. CARDIOVASCULAR: S1 and S2 muffled PULMONARY: diminished breath sounds bilaterally with no wheezing or rhonchi noted. ABDOMEN: soft. Mildly tender on exam. Morbidly obese. non-distended, normoactive bowel sounds. No palpable organomegaly. MUSCULOSKELETAL: No joint swelling or deformity. EXTREMITIES: No cyanosis, clubbing, bilateral lower extremity edema noted NEUROLOGICAL: Gross neurological examination did not reveal any focal deficits. Diffuse weakness SKIN: No rashes. Assessment: Abdominal pain, likely secondary to acute ileus, resolved, surgery evaluated with no plans of intervention at this time recommending conservative management chest pain possibly secondary to dilated esophagus with achalasia, ACS ruled out History of chronic achalasia History of recent urinary tract infection, treated outpatient. Bacteremia with culture showing Enterococcus and repeat cultures negative Echo reported with concerns of an echogenic area in the aortic valve consistent with vegetation, normal EF, status post OG 10/20/2024 with a 1.3 x 1.3 cm vegetation noticed on the ventricular aspect of the aortic valve suggestive of infective endocarditis, evidence of PFO noticed as well History of atrial fibrillation with previous history of ablation History of congestive heart failure, acute exacerbation Acute hypoxic respiratory failure, secondary to above History of DVT/PE Hypertension Hyperlipidemia Morbid obesity with a BMI of 42.3 GI prophylaxis DVT prophylaxis Full code Plan: Recommend to continue with current medications and management with general surgery and infectious disease following. General surgery has evaluated the patient and patient is having bowel movements and denies any further abdominal pain. General surgery recommending outpatient follow-up and has signed off Patient did have positive blood cultures with Enterococcus and infectious disease following with repeat cultures being negative. Patient did receive a PICC line as patient will require outpatient IV antibiotics on discharge Patient did have 2D echo that was noted to have concerns of vegetation on the aortic valve. Cardiology has evaluated the patient and is status post OG revealing a 1.3 cm x 1.3 cm vegetation noticed on the ventricular aspect of the aortic valve suggestive of infective endocarditis with moderate aortic regurgitation no abscess formation noted with mild mitral regurgitation and tricuspid regurgitation as well as evidence of PFO and normal LV size and systolic function. Patient will need to undergo cardiac catheterization after clearance of bacteremia and CT surgery was consulted currently undergoing possible aortic valve replacement workup. Per cardiology there are no plans for repeat OG at this time recommending possible cardiac catheterization outpatient in the next 4 weeks once cultures remain negative, continued IV antibiotics, on discharge. Social work following as patient has no insurance currently and has been receiving unemployment. Patient has not made claims in the last 2 weeks and has not received any monies and has received a letter from [employer] reporting she has not made any claims over the last 2 weeks and this was provided to Medicaid corporate sales representative and awaiting to have Medicaid initiated to be able to afford IV antibiotics and home care on discharge. This remains pending and we will follow-up on daily. [facility] remains undetermined at this time. Patient continues to have significant lower extremity edema although nonpitting and has been encouraged to continue with compression stockings which are currently off and also was maintained on IV Lasix daily and will continue. Will follow labs closely and replace electrolytes per protocol Encouraged increased activity as tolerated The impression and plan of care has been dictated by Nan Zhang, Nurse Practitioner as directed. Dr. Mickey MD I have performed a history and examination and MDM of this patient, discussed the same with the dictator, and agree with the dictator's assessment and plan as written ,documented as a scribe. Based on total visit time, I have performed more than 50% of the visit. Objective - Vital Signs Vital signs: Vital Signs Temp 97.8 F 10/29/24 07:10 Pulse 83 10/29/24 07:10 Resp 16 10/29/24 07:10 BP 123/78 10/29/24 07:10 Pulse Ox 94 L 10/29/24 07:10 FiO2 Intake & Output 10/28/24 10/29/24 10/29/24 18:59 06:59 18:59 Intake Total 586 Balance 586 Intake: Intake, IV Titration 350 Amount Ampicillin 2,000 mg In 300 Sodium Chloride 0.9% 100 ml @ 200 mls/hr IVPB Q4HR [facility] Rx#:[id number] cefTRIAXone 2 gm In 50 Sodium Chloride 0.9% 50 ml @ 100 mls/hr IVPB Q12HR [facility] Rx#:[id number] Oral 236 Other: Voiding Method Toilet Bedside Commode # Voids 2 2 # Bowel Movements 2 - Labs CBC & Chem 7: 10/29/24 04:46 10/29/24 04:46 Labs: Abnormal Lab Results - Last 24 Hours (Table) 10/29/24 10/29/24 Range/Units 04:46 04:46 WBC 4.18 L (4.50-10.00) X 10*3/uL RBC 3.07 L (4.10-5.20) X 10*6/uL Hgb 8.2 L (12.0-15.0) g/dL Hct 28.9 L (37.2-46.3) % MCH 26.7 L (27.0-32.0) pg MCHC 28.4 L (32.0-37.0) g/dL RDW 19.0 H (11.5-14.5) % Immature Gran # 0.06 H (0.00-0.04) X 10*3/uL Creatinine 0.5 L (0.6-1.5) mg/dL BUN/Creatinine Ratio 30.20 H (12.00-20.00) Ratio
--- NOTE | 2024-10-30 02:35 | P.PN ---
Subjective Progress Note Date: 10/29/24 This is a pleasant 59-year-old female who was recently admitted with abdominal pain noted to have a dilated esophagus with ingested contents and achalasia. Patient reports she followed with GI in the outpatient setting many years ago and was told there is not much that can be done to correct this. Patient continues with abdominal pain with general surgery following with no plans of surgical intervention and no endoscopy at this time. Patient did have a blood culture that was positive and growing Enterococcus with infectious disease following. Await repeat cultures to determine clearance of bacteremia. Encouraged increase activity as tolerated with sitting up more frequently in the chair. 10/16/2024 Patient is seen in follow-up today with no acute overnight issues. Patient continues to report some abdominal pain although feels she reports it is gas pains. Patient awaiting repeat cultures and is maintained on ampicillin with infectious disease following as initial blood culture showing Enterococcus faecalis. Awaiting repeat blood cultures to determine bacteremia clearance. General surgery has evaluated the patient with no surgical interventions planned recommending to continue with bowel regimen especially on discharge. 10/17/2024 Patient is seen in follow-up today continues to report abdominal pain. Echo report was resulted and there is some echogenic area noted on the aortic valve consistent with vegetation with mild to moderate aortic regurgitation and moderate pulmonary hypertension along with moderate mitral and mild tricuspid regurgitation noted. Patient previous blood cultures were positive showing Enterococcus and repeat cultures thus far have been negative. Will consult cardiology to discuss the need of possible OG for further evaluation. Patient to continue on IV antibiotics with infectious disease following at this time. Continue current as well as bowel regimen. Patient is afebrile with no reported chest pain or shortness of breath. Encouraging increasing activity as tolerated and getting up more frequently. 10/18/2024 Patient seen in follow-up today with no acute overnight issues noted. Patient to be evaluated by cardiology for possible OG and to further evaluate echo as patient is noted to have positive blood cultures and concerns of vegetation. Patient is continued on antibiotics with infectious disease following and repeat blood cultures remain negative thus far. Patient is afebrile and white count is normal with no reported chest pain or shortness of breath. Encouraged increase activity as tolerated. Will follow-up on repeat labs. 10/19/2024 Patient is seen in follow-up today reporting some nausea and will add Zofran and continue with Protonix. Patient was evaluated by cardiology awaiting to obtain records from previous stress test and/or cardiac catheterization as patient recently underwent ablation in the outpatient setting also on previous admissions. Patient tentatively plan for OG on Sunday with cardiology. Repeat cultures remain negative thus far with infectious disease following maintained on current antibiotics and will continue. Encouraged increased activity as tolerated and will follow-up on repeat labs. To inquire with case management/social work on Sunday regarding treatment plan moving forward and if patient is any further on Medicaid application as patient currently has no insurance. 10/20/2024 Patient is seen and evaluated in follow-up with multiple consultations following including infectious disease as patient did have positive blood cultures with Enterococcus. Patient awaiting to undergo OG today with cardiology following and is currently NPO. Hemoglobin is stable at 8.1 with no active bleeding noted, white count remains within normal limits at 4.97, sodium is 140 with a potassium of 3.6 and creatinine is 0.5. Will await official OG report and discuss further with findings regarding discharge planning as patient may likely need IV antibiotics on discharge. Patient currently has no insurance and apparently has been receiving unemployment which is delaying her receiving insurance. Per social work, patient is to contact [employer] regarding this. 10/21/2024 Patient is seen in follow-up today with no acute overnight issues noted. Patient to receive a PICC line as patient will require IV antibiotics outpatient. Social work currently working with the patient as she has no insurance but has not been receiving insurance as patient is receiving unemployment. Arrangements will need to be made prior to discharge for IV antibiotic therapy as patient was noted to have a positive presentation on OG. Recent repeat blood culture is negative and will continue current regimen. Patient is afebrile with no reports of chest pain or shortness of breath. Patient tolerating diet with occasional nausea and no vomiting noted. Patient has been up and walking although continues with some weakness. Encouraged to increase activity as tolerated and walking multiple times throughout the day 10/22/2024 Patient is seen in follow-up today has received a PICC line currently awaiting a call back from [employer] to be able to initiate insurance as patient currentl y has no insurance. Repeat blood cultures are negative although patient was positive for OG with vegetation on the aortic valve. Cardiology following and has consulted CT surgery for further possible aortic valve replacement. Patient is continued on antibiotics with infectious disease following and will continue. Patient will require cardiac catheterization prior to valve replacement and is undergoing further initial workup. Cardiology recommends negative blood cultures prior to proceeding with catheterization. Repeat blood cultures thus far negative for 4 days. Patient is afebrile with no reports of chest pain or shortness of breath. Patient reports has been up and walking although is significantly weak. Encouraged increased activity as tolerated including sitting up in the chair more frequently. 10/23/2024 Patient is seen in follow-up with multiple consultations following. Cardiology with no plans of OG at this time recommending continue with IV antibiotic therapy for 4 weeks and reevaluation to discuss repeat OG and/or cardiac catheterization to ensure if patient truly needs aortic valve surgery. CT surgery following is undergoing further surgical workup. Patient has received a PICC line and will require IV antibiotics on discharge currently awaiting unemployment office to close her case so she can receive Medicaid. Social work is working diligently with the patient on this. The jones of home care nursing and equipment along with medications is quite expensive and patient unable to afford. Patient reports she is awaiting a call from the unemployment office. Patient is afebrile with no reports of chest pain or shortness of breath. Patient tolerating diet and continues to have bowel movements. Occasional nausea with no vomiting at this time. 10/24/2024 Patient is seen in follow-up today reporting some mild increase shortness of breath. Patient is maintained on 2 L with oxygen saturations above 96%. Patient is continued on oral Lasix although may benefit from IV Lasix as patient does appear to be edematous. Will obtain a chest x-ray. Patient is maintained on IV antibiotics with infectious disease following and will continue with outpatient IV antibiotics. Social work is following and will follow-up with unemployment and Medicaid after Sunday as patient needs to verify there have been no documented unemployment claims to receive payment for the last 2 weeks. Encouraged increase activity as tolerated recommend elevating lower extremities while at rest. Patient's family brought her compression stockings and and recommend to continue at this time. 10/27/2024 Patient is seen in follow-up today continued on antibiotics with infectious disease following. Patient to continue on IV Lasix for now as there is significant lower extremity swelling noted. Patient did have compression stockings on although was removed and patient is lower extremity dependent while sitting up in the chair. Encouraged elevating while at rest and continued compression stocking use. Patient has received paperwork regarding no documented claims on unemployment to provide to the Medicaid to receive insurance. This is pending and will need to determine if insurance has been activated to ensure safe discharge planning. Social work is following and will follow daily with Medicaid labor representative and also to arrange for outpatient IV antibiotic therapy. 10/28/2024 Patient is seen in follow-up today maintained on antibiotics and swelling of the lower extremities is slightly improved we will continue with IV Lasix and follow-up on repeat labs. Replace electrolytes per protocol. Patient reports is tolerating diet with small frequent meals and no nausea or vomiting noted. Patient does have a PICC line and is awaiting for insurance approval to initiate Medicaid so patient can discharge home on continued IV antibiotic therapy due to a vegetation on the aortic valve. Patient will need extensive outpatient follow-up with cardiology and CT surgery along with infectious disease. Social work is following and being updated daily. 10/29/2024 Patient is seen in follow-up today continues to sit in the chair and reporting her lower extremities are becoming more swollen again. Patient has compression stockings although is not been wearing them. Patient is maintained on daily Lasix and will continue to monitor kidney functions closely. Recommend Scott wrapping from the toes up to the knees and elevating while at rest. Patient remains to be awaiting insurance determination with Medicaid to determine appropriate discharge planning including IV antibiotics and home care. Review of systems: Constitutional: No reports of fatigue, fever, or chills Cardiovascular: No reports of chest pain or palpitations Respiratory: reports of intermittent shortness of breath, denies cough GI: reports of occasional nausea, no reports of vomiting, reports improvement in abdominal discomfort and tenderness, reports having bowel movements : No reports of dysuria or retention Neurovascular: reports of generalized weakness All medications have been reviewed PHYSICAL EXAMINATION: GENERAL: The patient is awake, alert and oriented x4, Well developed, elderly appearing, morbidly obese HEENT: Pupils are round and equally reacting to light. EOMI. no scleral icterus. No conjunctival pallor. Normocephalic, atraumatic. No pharyngeal erythema. No thyromegaly. CARDIOVASCULAR: S1 and S2 muffled PULMONARY: diminished breath sounds bilaterally with no wheezing or rhonchi noted. ABDOMEN: soft. Mildly tender on exam. Morbidly obese. non-distended, normoactive bowel sounds. No palpable organomegaly. MUSCULOSKELETAL: No joint swelling or deformity. EXTREMITIES: No cyanosis, clubbing, bilateral lower extremity edema noted NEUROLOGICAL: Gross neurological examination did not reveal any focal deficits. Diffuse weakness SKIN: No rashes. Assessment: Abdominal pain, likely secondary to acute ileus, resolved, surgery evaluated with no plans of intervention at this time recommending conservative management chest pain possibly secondary to dilated esophagus with achalasia, ACS ruled out History of chronic achalasia History of recent urinary tract infection, treated outpatient. Bacteremia with culture showing Enterococcus and repeat cultures negative Echo reported with concerns of an echogenic area in the aortic valve consistent with vegetation, normal EF, status post OG 10/20/2024 with a 1.3 x 1.3 cm vegetation noticed on the ventricular aspect of the aortic valve suggestive of infective endocarditis, evidence of PFO noticed as well History of atrial fibrillation with previous history of ablation History of congestive heart failure, acute exacerbation Acute hypoxic respiratory failure, secondary to above History of DVT/PE Hypertension Hyperlipidemia Morbid obesity with a BMI of 42.3 GI prophylaxis DVT prophylaxis Full code Plan: Patient did have positive blood cultures with Enterococcus and infectious disease following with repeat cultures being negative. Patient did receive a PICC line as patient will require outpatient IV antibiotics on discharge Patient did have 2D echo that was noted to have concerns of vegetation on the aortic valve. Cardiology has evaluated the patient and is status post OG revealing a 1.3 cm x 1.3 cm vegetation noticed on the ventricular aspect of the aortic valve suggestive of infective endocarditis with moderate aortic regurgitation no abscess formation noted with mild mitral regurgitation and tricuspid regurgitation as well as evidence of PFO and normal LV size and systolic function. Patient will need to undergo cardiac catheterization after clearance of bacteremia and CT surgery was consulted currently undergoing possible aortic valve replacement workup. Per cardiology there are no plans for repeat OG at this time recommending possible cardiac catheterization outpatient in the next 4 weeks once cultures remain negative, continued IV antibiotics, on discharge. Social work following as patient has no insurance currently and has been receiving unemployment. Patient has not made claims in the last 2 weeks and has not received any monies and has received a letter from [employer] reporting she has not made any claims over the last 2 weeks and this was provided to Medicaid labor representative and awaiting to have Medicaid initiated to be able to afford IV antibiotics and home care on discharge. This remains pending and we will follow-up on daily. Social work is in contact with [employer] Medicaid remains undetermined at this time. Patient continues to have significant lower extremity edema although nonpitting and will continue with Scott wraps from the toes up to the knees and elevating while at rest. Continue on IV Lasix daily and will continue to monitor kidney functions and electrolytes closely. Will follow labs closely and replace electrolytes per protocol. Recommend fluid restrictions Encouraged increased activity as tolerated The impression and plan of care has been dictated by Nan Zhang, Nurse Practitioner as directed. Dr. Mickey MD I have performed a history and examination and MDM of this patient, discussed the same with the dictator, and agree with the dictator's assessment and plan as written ,documented as a scribe. Based on total visit time, I have performed more than 50% of the visit. Objective - Vital Signs Vital signs: Vital Signs Temp 97.8 F 10/29/24 07:10 Pulse 83 10/29/24 07:10 Resp 16 10/29/24 07:10 BP 123/78 10/29/24 07:10 Pulse Ox 94 L 10/29/24 07:10 FiO2 Intake & Output 10/28/24 10/29/24 10/29/24 18:59 06:59 18:59 Intake Total 586 Balance 586 Intake: Intake, IV Titration 350 Amount Ampicillin 2,000 mg In 300 Sodium Chloride 0.9% 100 ml @ 200 mls/hr IVPB Q4HR [facility] Rx#:[id number] cefTRIAXone 2 gm In 50 Sodium Chloride 0.9% 50 ml @ 100 mls/hr IVPB Q12HR [facility] Rx#:[id number] Oral 236 Other: Voiding Method Toilet Bedside Commode # Voids 2 2 # Bowel Movements 2 - Labs CBC & Chem 7: 10/29/24 04:46 10/29/24 04:46 Labs: Abnormal Lab Results - Last 24 Hours (Table) 10/29/24 10/29/24 Range/Units 04:46 04:46 WBC 4.18 L (4.50-10.00) X 10*3/uL RBC 3.07 L (4.10-5.20) X 10*6/uL Hgb 8.2 L (12.0-15.0) g/dL Hct 28.9 L (37.2-46.3) % MCH 26.7 L (27.0-32.0) pg MCHC 28.4 L (32.0-37.0) g/dL RDW 19.0 H (11.5-14.5) % Immature Gran # 0.06 H (0.00-0.04) X 10*3/uL Creatinine 0.5 L (0.6-1.5) mg/dL BUN/Creatinine Ratio 30.20 H (12.00-20.00) Ratio
--- NOTE | 2024-10-30 16:07 | P.PN ---
Subjective Progress Note Date: 10/29/24 Principal diagnosis: Reason for follow-up is Enterococcus faecalis bacteremia Patient is a 59-year-old female with a past medical history significant for hypertension hyperlipidemia osteoarthritis DVT atrial fibrillation recently treated in the outpatient setting from urgent care with the [facility] for UTI presenting to [facility] ER subsequently with persistent symptoms she has been complaining of lower abdominal pain as well as shortness of breath, negative UA but blood cultures came back positive Enterococcus faecalis CT abdominal pelvis no acute intra-abdominal pathology. 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 On today's evaluation that is 10/29/2024,the patient denies any fever or any chills, patient is breathing comfortably on room air, the patient denies chest pain shortness of breath and no significant cough, patient denies abdominal pain, no nausea vomiting and did have decrease in the diarrhea frequency. Patient white count is 4.18, creatinine 0.5 Objective - Vital Signs Vital signs: Vital Signs Temp 97.8 F 10/29/24 07:10 Pulse 83 10/29/24 07:10 Resp 16 10/29/24 07:10 BP 123/78 10/29/24 07:10 Pulse Ox 94 L 10/29/24 07:10 FiO2 Intake & Output 10/28/24 10/29/24 10/29/24 18:59 06:59 18:59 Intake Total 586 118 Balance 586 118 Intake: Intake, IV Titration 350 Amount Ampicillin 2,000 mg In 300 Sodium Chloride 0.9% 100 ml @ 200 mls/hr IVPB Q4HR [facility] Rx#:[id number] cefTRIAXone 2 gm In 50 Sodium Chloride 0.9% 50 ml @ 100 mls/hr IVPB Q12HR [facility] Rx#:[id number] Oral 236 118 Other: Voiding Method Toilet Bedside Commode # Voids 2 2 2 # Bowel Movements 2 2 - Exam GENERAL DESCRIPTION: Middle-age female lying in bed in no distress RESPIRATORY SYSTEM: Unlabored breathing , decreased breath sounds at bases HEART: S1 S2 regular rate and rhythm , ABDOMEN: Soft , no tenderness EXTREMITIES: No edema feet - Labs CBC & Chem 7: 10/29/24 04:46 10/29/24 04:46 Labs: Abnormal Lab Results - Last 24 Hours (Table) 10/29/24 10/29/24 Range/Units 04:46 04:46 WBC 4.18 L (4.50-10.00) X 10*3/uL RBC 3.07 L (4.10-5.20) X 10*6/uL Hgb 8.2 L (12.0-15.0) g/dL Hct 28.9 L (37.2-46.3) % MCH 26.7 L (27.0-32.0) pg MCHC 28.4 L (32.0-37.0) g/dL RDW 19.0 H (11.5-14.5) % Immature Gran # 0.06 H (0.00-0.04) X 10*3/uL Creatinine 0.5 L (0.6-1.5) mg/dL BUN/Creatinine Ratio 30.20 H (12.00-20.00) Ratio Assessment and Plan (1) Abdominal pain Current Visit: Yes Status: Acute Code(s): R10.9 - UNSPECIFIED ABDOMINAL PAIN SNOMED Code(s): 89354047 (2) Bacteremia Current Visit: Yes Status: Acute Code(s): R78.81 - BACTEREMIA SNOMED C ode(s): 8689951 (3) Enterococcus faecalis infection Current Visit: Yes Status: Acute Code(s): A49.8 - OTHER BACTERIAL INFECTIONS OF UNSPECIFIED SITE SNOMED Code(s): 600217564 Plan: 1patient presented to hospital with lower abdominal pain to have urinary symptoms recently completed course of Bactrim DS for UTI patient did have a ne gative UA more likely indicating adequate treatment of underlying UTI she has been complaining some abdominal pain however the patient did have a CT abdominal pelvis that has been negative for any acute process 2patient did have a positive blood culture Enterococcus faecalis which is usually of urinary or GI source however patient did have a negative UA CT abdominal pelvis done without contrast did not show acute intra-abdominal pathology, unfortunately CT abdominal pelvis was done again without oral and IV contrast and still waiting for echocardiogram report to be available as of 10/16/2024 3patient echocardiogram completed and reported as possible vegetation to the aortic valve cardiology plan is status post OG completed 10/20/2024 with evidence of aortic valve vegetation but no abscess CT surgery has been consulted following the patient closely apparently plan is for no surgery at this point as per discussion with the admitting team 4patient to continue IV ampicillin and Rocephin, and continue Questran for symptomatic relief of diarrhea. And monitor clinical course closely Dictation was produced using [employer] dictation software. please excuse any grammatical, word or spelling errors. Time with Patient: Less than 30
--- NOTE | 2024-10-30 16:08 | P.PN ---
Subjective Progress Note Date: 10/30/24 Principal diagnosis: Reason for follow-up is Enterococcus faecalis bacteremia Patient is a 59-year-old female with a past medical history significant for hypertension hyperlipidemia osteoarthritis DVT atrial fibrillation recently treated in the outpatient setting from urgent care with the [facility] for UTI presenting to [facility] ER subsequently with persistent symptoms she has been complaining of lower abdominal pain as well as shortness of breath, negative UA but blood cultures came back positive Enterococcus faecalis CT abdominal pelvis no acute intra-abdominal pathology. 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 On today's evaluation that is 10/30/2024,the patient remains to be afebrile, patient is on room air not requiring supplemental oxygen and denies any shortness of breath no chest pain or cough.Patient denies having any nausea or vomiting, no abdominal pain and mention improvement in the diarrhea. No new lab has been obtained today Objective - Vital Signs Vital signs: Vital Signs Temp 97.7 F 10/30/24 07:45 Pulse 66 10/30/24 07:45 Resp 16 10/30/24 07:45 BP 131/70 10/30/24 07:45 Pulse Ox 99 10/30/24 07:45 FiO2 Intake & Output 10/29/24 10/30/24 10/30/24 18:59 06:59 18:59 Intake Total 236 100 Balance 236 100 Weight 133.81 kg Intake: Oral 236 100 Other: # Voids 2 3 # Bowel Movements 2 - Exam GENERAL DESCRIPTION: Middle-age female lying in bed in no distress RESPIRATORY SYSTEM: Unlabored breathing , decreased breath sounds at bases HEART: S1 S2 regular rate and rhythm , ABDOMEN: Soft , no tenderness EXTREMITIES: No edema feet - Labs CBC & Chem 7: 10/29/24 04:46 10/29/24 04:46 Assessment and Plan (1) Abdominal pain Current Visit: Yes Status: Acute Code(s): R10.9 - UNSPECIFIED ABDOMINAL PAIN SNOMED Code(s): 67044272 (2) Bacteremia Current Visit: Yes Status: Acute Code(s): R78.81 - BACTEREMIA SNOMED Code(s): 6963612 (3) Enterococcus faecalis infection Current Visit: Yes Status: Acute Code(s): A49.8 - OTHER BACTERIAL INFECTIONS OF UNSPECIFIED SITE SNOMED Code(s): 096910426 Plan: 1patient presented to hospital with lower abdominal pain to have urinary symptoms recently completed course of Bactrim DS for UTI patient did have a negative UA more likely indicating adequate treatment of underlying UTI she has been complaining some abdominal pain however the patient did have a CT abdominal pelvis that has been negative for any acute process 2patient did have a positive blood culture Enterococcus faecalis which is usually of urinary or GI source however patient did have a negative UA CT abdomi nal pelvis done without contrast did not show acute intra-abdominal pathology, unfortunately CT abdominal pelvis was done again without oral and IV contrast and still waiting for echocardiogram report to be available as of 10/16/2024 3patient echocardiogram completed and reported as possible vegetation to the aortic valve cardiology plan is status post OG completed 10/20/2024 with evidence of aortic valve vegetation but no abscess CT surgery has been consulted following the patient closely apparently plan is for no surgery at this point as per discussion with the admitting team 4patient currently being treated with IV ampicillin and Rocephin and tolerating it so far to continue along with Questran for symptomatic relief of diarrhea. Question answered Dictation was produced using [employer] dictation software. please excuse any grammatical, word or spelling errors. Time with Patient: Less than 30
--- NOTE | 2024-10-30 23:50 | P.PN ---
Subjective Progress Note Date: 10/30/24 This is a pleasant 59-year-old female who was recently admitted with abdominal pain noted to have a dilated esophagus with ingested contents and achalasia. Patient reports she followed with GI in the outpatient setting many years ago and was told there is not much that can be done to correct this. Patient continues with abdominal pain with general surgery following with no plans of surgical intervention and no endoscopy at this time. Patient did have a blood culture that was positive and growing Enterococcus with infectious disease following. Await repeat cultures to determine clearance of bacteremia. Encouraged increase activity as tolerated with sitting up more frequently in the chair. 10/16/2024 Patient is seen in follow-up today with no acute overnight issues. Patient continues to report some abdominal pain although feels she reports it is gas pains. Patient awaiting repeat cultures and is maintained on ampicillin with infectious disease following as initial blood culture showing Enterococcus faecalis. Awaiting repeat blood cultures to determine bacteremia clearance. General surgery has evaluated the patient with no surgical interventions planned recommending to continue with bowel regimen especially on discharge. 10/17/2024 Patient is seen in follow-up today continues to report abdominal pain. Echo report was resulted and there is some echogenic area noted on the aortic valve consistent with vegetation with mild to moderate aortic regurgitation and moderate pulmonary hypertension along with moderate mitral and mild tricuspid regurgitation noted. Patient previous blood cultures were positive showing Enterococcus and repeat cultures thus far have been negative. Will consult cardiology to discuss the need of possible OG for further evaluation. Patient to continue on IV antibiotics with infectious disease following at this time. Continue current as well as bowel regimen. Patient is afebrile with no reported chest pain or shortness of breath. Encouraging increasing activity as tolerated and getting up more frequently. 10/18/2024 Patient seen in follow-up today with no acute overnight issues noted. Patient to be evaluated by cardiology for possible OG and to further evaluate echo as patient is noted to have positive blood cultures and concerns of vegetation. Patient is continued on antibiotics with infectious disease following and repeat blood cultures remain negative thus far. Patient is afebrile and white count is normal with no reported chest pain or shortness of breath. Encouraged increase activity as tolerated. Will follow-up on repeat labs. 10/19/2024 Patient is seen in follow-up today reporting some nausea and will add Zofran and continue with Protonix. Patient was evaluated by cardiology awaiting to obtain records from previous stress test and/or cardiac catheterization as patient recently underwent ablation in the outpatient setting also on previous admissions. Patient tentatively plan for OG on Sunday with cardiology. Repeat cultures remain negative thus far with infectious disease following maintained on current antibiotics and will continue. Encouraged increased activity as tolerated and will follow-up on repeat labs. To inquire with case management/social work on Sunday regarding treatment plan moving forward and if patient is any further on Medicaid application as patient currently has no insurance. 10/20/2024 Patient is seen and evaluated in follow-up with multiple consultations following including infectious disease as patient did have positive blood cultures with Enterococcus. Patient awaiting to undergo OG today with cardiology following and is currently NPO. Hemoglobin is stable at 8.1 with no active bleeding noted, white count remains within normal limits at 4.97, sodium is 140 with a potassium of 3.6 and creatinine is 0.5. Will await official OG report and discuss further with findings regarding discharge planning as patient may likely need IV antibiotics on discharge. Patient currently has no insurance and apparently has been receiving unemployment which is delaying her receiving insurance. Per social work, patient is to contact [employer] regarding this. 10/21/2024 Patient is seen in follow-up today with no acute overnight issues noted. Patient to receive a PICC line as patient will require IV antibiotics outpatient. Social work currently working with the patient as she has no insurance but has not been receiving insurance as patient is receiving unemployment. Arrangements will need to be made prior to discharge for IV antibiotic therapy as patient was noted to have a positive presentation on OG. Recent repeat blood culture is negative and will continue current regimen. Patient is afebrile with no reports of chest pain or shortness of breath. Patient tolerating diet with occasional nausea and no vomiting noted. Patient has been up and walking although continues with some weakness. Encouraged to increase activity as tolerated and walking multiple times throughout the day 10/22/2024 Patient is seen in follow-up today has received a PICC line currently awaiting a call back from [employer] to be able to initiate insurance as patient currentl y has no insurance. Repeat blood cultures are negative although patient was positive for OG with vegetation on the aortic valve. Cardiology following and has consulted CT surgery for further possible aortic valve replacement. Patient is continued on antibiotics with infectious disease following and will continue. Patient will require cardiac catheterization prior to valve replacement and is undergoing further initial workup. Cardiology recommends negative blood cultures prior to proceeding with catheterization. Repeat blood cultures thus far negative for 4 days. Patient is afebrile with no reports of chest pain or shortness of breath. Patient reports has been up and walking although is significantly weak. Encouraged increased activity as tolerated including sitting up in the chair more frequently. 10/23/2024 Patient is seen in follow-up with multiple consultations following. Cardiology with no plans of OG at this time recommending continue with IV antibiotic therapy for 4 weeks and reevaluation to discuss repeat OG and/or cardiac catheterization to ensure if patient truly needs aortic valve surgery. CT surgery following is undergoing further surgical workup. Patient has received a PICC line and will require IV antibiotics on discharge currently awaiting unemployment office to close her case so she can receive Medicaid. Social work is working diligently with the patient on this. The jones of home care nursing and equipment along with medications is quite expensive and patient unable to afford. Patient reports she is awaiting a call from the unemployment office. Patient is afebrile with no reports of chest pain or shortness of breath. Patient tolerating diet and continues to have bowel movements. Occasional nausea with no vomiting at this time. 10/24/2024 Patient is seen in follow-up today reporting some mild increase shortness of breath. Patient is maintained on 2 L with oxygen saturations above 96%. Patient is continued on oral Lasix although may benefit from IV Lasix as patient does appear to be edematous. Will obtain a chest x-ray. Patient is maintained on IV antibiotics with infectious disease following and will continue with outpatient IV antibiotics. Social work is following and will follow-up with unemployment and Medicaid after Sunday as patient needs to verify there have been no documented unemployment claims to receive payment for the last 2 weeks. Encouraged increase activity as tolerated recommend elevating lower extremities while at rest. Patient's family brought her compression stockings and and recommend to continue at this time. 10/27/2024 Patient is seen in follow-up today continued on antibiotics with infectious disease following. Patient to continue on IV Lasix for now as there is significant lower extremity swelling noted. Patient did have compression stockings on although was removed and patient is lower extremity dependent while sitting up in the chair. Encouraged elevating while at rest and continued compression stocking use. Patient has received paperwork regarding no documented claims on unemployment to provide to the Medicaid to receive insurance. This is pending and will need to determine if insurance has been activated to ensure safe discharge planning. Social work is following and will follow daily with Medicaid passenger relations representative and also to arrange for outpatient IV antibiotic therapy. 10/28/2024 Patient is seen in follow-up today maintained on antibiotics and swelling of the lower extremities is slightly improved we will continue with IV Lasix and follow-up on repeat labs. Replace electrolytes per protocol. Patient reports is tolerating diet with small frequent meals and no nausea or vomiting noted. Patient does have a PICC line and is awaiting for insurance approval to initiate Medicaid so patient can discharge home on continued IV antibiotic therapy due to a vegetation on the aortic valve. Patient will need extensive outpatient follow-up with cardiology and CT surgery along with infectious disease. Social work is following and being updated daily. 10/29/2024 Patient is seen in follow-up today continues to sit in the chair and reporting her lower extremities are becoming more swollen again. Patient has compression stockings although is not been wearing them. Patient is maintained on daily Lasix and will continue to monitor kidney functions closely. No reports of gross recommend Scott wrapping from the toes up to the knees and elevating while at rest. Patient remains to be awaiting insurance determination with Medicaid to determine appropriate discharge planning including IV antibiotics and home care. 10/30/2024 Patient is seen in follow-up today with no acute overnight issues noted. Patient does have Scott wraps applied to bilateral lower extremities showing some improvements in lower extremity swelling and will continue on daily IV Lasix. Patient is tolerating well and kidney functions and electrolytes within normal limits. Patient continues to await Medicaid approval for discharge planning for continued IV antibiotics and home care in the outpatient setting. Patient is tolerating diet with no reports of nausea or vomiting. Patient is having bowel movements and denies diarrhea. Patient is continued on antibiotics with infectious disease following closely and discharge remains pending secondary to Medicaid. Review of systems: Constitutional: No reports of fatigue, fever, or chills Cardiovascular: No reports of chest pain or palpitations Respiratory: reports of intermittent shortness of breath, denies cough GI: reports of occasional nausea, no reports of vomiting, reports improvement in abdominal discomfort and tenderness, reports having bowel movements : No reports of dysuria or retention Neurovascular: reports of generalized weakness All medications have been reviewed PHYSICAL EXAMINATION: GENERAL: The patient is awake, alert and oriented x4, Well developed, elderly appearing, morbidly obese HEENT: Pupils are round and equally reacting to light. EOMI. no scleral icterus. No conjunctival pallor. Normocephalic, atraumatic. No pharyngeal erythema. No thyromegaly. CARDIOVASCULAR: S1 and S2 muffled PULMONARY: diminished breath sounds bilaterally with no wheezing or rhonchi noted. ABDOMEN: soft. Mildly tender on exam. Morbidly obese. non-distended, normoactive bowel sounds. No palpable organomegaly. MUSCULOSKELETAL: No joint swelling or deformity. EXTREMITIES: No cyanosis, clubbing, bilateral lower extremity edema noted NEUROLOGICAL: Gross neurological examination did not reveal any focal deficits. Diffuse weakness SKIN: No rashes. Assessment: Abdominal pain, likely secondary to acute ileus, resolved, surgery evaluated with no plans of intervention at this time recommending conservative management chest pain possibly secondary to dilated esophagus with achalasia, ACS ruled out History of chronic achalasia History of recent urinary tract infection, treated outpatient. Bacteremia with culture showing Enterococcus and repeat cultures negative Echo reported with concerns of an echogenic area in the aortic valve consistent with vegetation, normal EF, status post OG 10/20/2024 with a 1.3 x 1.3 cm vegetation noticed on the ventricular aspect of the aortic valve suggestive of infective endocarditis, evidence of PFO noticed as well History of atrial fibrillation with previous history of ablation History of congestive heart failure, acute exacerbation Acute hypoxic respiratory failure, secondary to above History of DVT/PE Hypertension Hyperlipidemia Morbid obesity with a BMI of 42.3 GI prophylaxis DVT prophylaxis Full code Plan: Patient did have positive blood cultures with Enterococcus and infectious disease following with repeat cultures being negative. Patient did receive a PICC line as patient will require outpatient IV antibiotics on discharge Patient did have 2D echo that was noted to have concerns of vegetation on the aortic valve. Cardiology has evaluated the patient and is status post OG revealing a 1.3 cm x 1.3 cm vegetation noticed on the ventricular aspect of the aortic valve suggestive of infective endocarditis with moderate aortic regurgitation no abscess formation noted with mild mitral regurgitation and tricuspid regurgitation as well as evidence of PFO and normal LV size and systolic function. Patient will need to undergo cardiac catheterization after clearance of bacteremia and CT surgery was consulted currently undergoing possible aortic valve replacement workup. Per cardiology there are no plans for repeat OG at this time recommending possible cardiac catheterization outpatient in the next 4 weeks once cultures remain negative, continued IV antibiotics, on discharge. Social work following as patient has no insurance currently and has been receiving unemployment. Patient has not made claims in the last 2 weeks and has not received any monies and has received a letter from unemployment reporting she has not made any claims over the last 2 weeks and this was provided to Medicaid passenger relations representative and awaiting to have Medicaid initiated to be able to afford IV antibiotics and home care on discharge. This remains pending and we will follow-up on daily. Social work is in contact with [employer] Medicaid remains undetermined at this time. Given the holiday (31 October), Medicaid and verification of is not available on this day. Will follow-up likely on Sunday and hopeful for discharge planning at this time Patient lower extremity edema is improving and will continue with Scott wraps from the toes up to the knees and elevating while at rest. Continue on IV Lasix daily and will continue to monitor kidney functions and electrolytes closely. Will follow labs closely and replace electrolytes per protocol. Recommend fluid restrictions Encouraged increased activity as tolerated The impression and plan of care has been dictated by Nan Zhang, Nurse Practitioner as directed. Dr. Mickey MD I have performed a history and examination and MDM of this patient, discussed the same with the dictator, and agree with the dictator's assessment and plan as written ,documented as a scribe. Based on total visit time, I have performed more than 50% of the visit. Objective - Vital Signs Vital signs: Vital Signs Temp 98.3 F 10/30/24 20:00 Pulse 76 10/30/24 20:00 Resp 20 10/30/24 20:00 BP 145/64 10/30/24 20:00 Pulse Ox 96 10/30/24 20:00 FiO2 Intake & Output 10/30/24 10/30/24 10/31/24 06:59 18:59 06:59 Intake Total 340 Balance 340 Weight 133.81 kg Intake: Oral 340 Other: Voiding Method Bedside Commode # Voids 3 4 # Bowel Movements 1 - Labs CBC & Chem 7: 10/29/24 04:46 10/29/24 04:46
--- NOTE | 2024-10-31 15:02 | P.PN ---
Subjective Progress Note Date: 10/31/24 This is a pleasant 59-year-old female who was recently admitted with abdominal pain noted to have a dilated esophagus with ingested contents and achalasia. Patient reports she followed with GI in the outpatient setting many years ago and was told there is not much that can be done to correct this. Patient continues with abdominal pain with general surgery following with no plans of surgical intervention and no endoscopy at this time. Patient did have a blood culture that was positive and growing Enterococcus with infectious disease following. Await repeat cultures to determine clearance of bacteremia. Encouraged increase activity as tolerated with sitting up more frequently in the chair. 10/16/2024 Patient is seen in follow-up today with no acute overnight issues. Patient continues to report some abdominal pain although feels she reports it is gas pains. Patient awaiting repeat cultures and is maintained on ampicillin with infectious disease following as initial blood culture showing Enterococcus faecalis. Awaiting repeat blood cultures to determine bacteremia clearance. General surgery has evaluated the patient with no surgical interventions planned recommending to continue with bowel regimen especially on discharge. 10/17/2024 Patient is seen in follow-up today continues to report abdominal pain. Echo report was resulted and there is some echogenic area noted on the aortic valve consistent with vegetation with mild to moderate aortic regurgitation and moderate pulmonary hypertension along with moderate mitral and mild tricuspid regurgitation noted. Patient previous blood cultures were positive showing Enterococcus and repeat cultures thus far have been negative. Will consult cardiology to discuss the need of possible OG for further evaluation. Patient to continue on IV antibiotics with infectious disease following at this time. Continue current as well as bowel regimen. Patient is afebrile with no reported chest pain or shortness of breath. Encouraging increasing activity as tolerated and getting up more frequently. 10/18/2024 Patient seen in follow-up today with no acute overnight issues noted. Patient to be evaluated by cardiology for possible OG and to further evaluate echo as patient is noted to have positive blood cultures and concerns of vegetation. Patient is continued on antibiotics with infectious disease following and repeat blood cultures remain negative thus far. Patient is afebrile and white count is normal with no reported chest pain or shortness of breath. Encouraged increase activity as tolerated. Will follow-up on repeat labs. 10/19/2024 Patient is seen in follow-up today reporting some nausea and will add Zofran and continue with Protonix. Patient was evaluated by cardiology awaiting to obtain records from previous stress test and/or cardiac catheterization as patient recently underwent ablation in the outpatient setting also on previous admissions. Patient tentatively plan for OG on Sunday with cardiology. Repeat cultures remain negative thus far with infectious disease following maintained on current antibiotics and will continue. Encouraged increased activity as tolerated and will follow-up on repeat labs. To inquire with case management/social work on Sunday regarding treatment plan moving forward and if patient is any further on Medicaid application as patient currently has no insurance. 10/20/2024 Patient is seen and evaluated in follow-up with multiple consultations following including infectious disease as patient did have positive blood cultures with Enterococcus. Patient awaiting to undergo OG today with cardiology following and is currently NPO. Hemoglobin is stable at 8.1 with no active bleeding noted, white count remains within normal limits at 4.97, sodium is 140 with a potassium of 3.6 and creatinine is 0.5. Will await official OG report and discuss further with findings regarding discharge planning as patient may likely need IV antibiotics on discharge. Patient currently has no insurance and apparently has been receiving unemployment which is delaying her receiving insurance. Per social work, patient is to contact [employer] regarding this. 10/21/2024 Patient is seen in follow-up today with no acute overnight issues noted. Patient to receive a PICC line as patient will require IV antibiotics outpatient. Social work currently working with the patient as she has no insurance but has not been receiving insurance as patient is receiving unemployment. Arrangements will need to be made prior to discharge for IV antibiotic therapy as patient was noted to have a positive presentation on OG. Recent repeat blood culture is negative and will continue current regimen. Patient is afebrile with no reports of chest pain or shortness of breath. Patient tolerating diet with occasional nausea and no vomiting noted. Patient has been up and walking although continues with some weakness. Encouraged to increase activity as tolerated and walking multiple times throughout the day 10/22/2024 Patient is seen in follow-up today has received a PICC line currently awaiting a call back from [employer] to be able to initiate insurance as patient currentl y has no insurance. Repeat blood cultures are negative although patient was positive for OG with vegetation on the aortic valve. Cardiology following and has consulted CT surgery for further possible aortic valve replacement. Patient is continued on antibiotics with infectious disease following and will continue. Patient will require cardiac catheterization prior to valve replacement and is undergoing further initial workup. Cardiology recommends negative blood cultures prior to proceeding with catheterization. Repeat blood cultures thus far negative for 4 days. Patient is afebrile with no reports of chest pain or shortness of breath. Patient reports has been up and walking although is significantly weak. Encouraged increased activity as tolerated including sitting up in the chair more frequently. 10/23/2024 Patient is seen in follow-up with multiple consultations following. Cardiology with no plans of OG at this time recommending continue with IV antibiotic therapy for 4 weeks and reevaluation to discuss repeat OG and/or cardiac catheterization to ensure if patient truly needs aortic valve surgery. CT surgery following is undergoing further surgical workup. Patient has received a PICC line and will require IV antibiotics on discharge currently awaiting unemployment office to close her case so she can receive Medicaid. Social work is working diligently with the patient on this. The jones of home care nursing and equipment along with medications is quite expensive and patient unable to afford. Patient reports she is awaiting a call from the unemployment office. Patient is afebrile with no reports of chest pain or shortness of breath. Patient tolerating diet and continues to have bowel movements. Occasional nausea with no vomiting at this time. 10/24/2024 Patient is seen in follow-up today reporting some mild increase shortness of breath. Patient is maintained on 2 L with oxygen saturations above 96%. Patient is continued on oral Lasix although may benefit from IV Lasix as patient does appear to be edematous. Will obtain a chest x-ray. Patient is maintained on IV antibiotics with infectious disease following and will continue with outpatient IV antibiotics. Social work is following and will follow-up with unemployment and Medicaid after Sunday as patient needs to verify there have been no documented unemployment claims to receive payment for the last 2 weeks. Encouraged increase activity as tolerated recommend elevating lower extremities while at rest. Patient's family brought her compression stockings and and recommend to continue at this time. 10/27/2024 Patient is seen in follow-up today continued on antibiotics with infectious disease following. Patient to continue on IV Lasix for now as there is significant lower extremity swelling noted. Patient did have compression stockings on although was removed and patient is lower extremity dependent while sitting up in the chair. Encouraged elevating while at rest and continued compression stocking use. Patient has received paperwork regarding no documented claims on unemployment to provide to the Medicaid to receive insurance. This is pending and will need to determine if insurance has been activated to ensure safe discharge planning. Social work is following and will follow daily with Medicaid residential sales representative and also to arrange for outpatient IV antibiotic therapy. 10/28/2024 Patient is seen in follow-up today maintained on antibiotics and swelling of the lower extremities is slightly improved we will continue with IV Lasix and follow-up on repeat labs. Replace electrolytes per protocol. Patient reports is tolerating diet with small frequent meals and no nausea or vomiting noted. Patient does have a PICC line and is awaiting for insurance approval to initiate Medicaid so patient can discharge home on continued IV antibiotic therapy due to a vegetation on the aortic valve. Patient will need extensive outpatient follow-up with cardiology and CT surgery along with infectious disease. Social work is following and being updated daily. 10/29/2024 Patient is seen in follow-up today continues to sit in the chair and reporting her lower extremities are becoming more swollen again. Patient has compression stockings although is not been wearing them. Patient is maintained on daily Lasix and will continue to monitor kidney functions closely. No reports of gross recommend Scott wrapping from the toes up to the knees and elevating while at rest. Patient remains to be awaiting insurance determination with Medicaid to determine appropriate discharge planning including IV antibiotics and home care. 10/30/2024 Patient is seen in follow-up today with no acute overnight issues noted. Patient does have Scott wraps applied to bilateral lower extremities showing some improvements in lower extremity swelling and will continue on daily IV Lasix. Patient is tolerating well and kidney functions and electrolytes within normal limits. Patient continues to await Medicaid approval for discharge planning for continued IV antibiotics and home care in the outpatient setting. Patient is tolerating diet with no reports of nausea or vomiting. Patient is having bowel movements and denies diarrhea. Patient is continued on antibiotics with infectious disease following closely and discharge remains pending secondary to Medicaid. 10/31/2024 Patient is seen in follow-up today with infectious disease following. Patient is continued on IV antibiotics and has a PICC line in the left upper extremity. Patient is maintained on daily IV Lasix for continued lower extremity edema and normally takes Lasix daily. Patient to continue with Scott wrapping and elevating lower extremities while at rest. Patient continues to await insurance to be activated and Medicaid residential sales representative from [facility] is not working currently due to the holiday and will likely return on Sunday. Medicaid application remains pending at this time and will follow-up with social work on Sunday. Continue current regimen and will follow-up with repeat labs. Replace electrolytes per protocol. Encouraged increase activity as tolerated with frequently getting up and walking. Plan will be for home with home care with continued IV antibiotic therapy. Review of systems: Constitutional: No reports of fatigue, fever, or chills Cardiovascular: No reports of chest pain or palpitations Respiratory: reports of intermittent shortness of breath, denies cough GI: reports of occasional nausea, no reports of vomiting, reports improvement in abdominal discomfort and tenderness, reports having bowel movements : No reports of dysuria or retention Neurovascular: reports of generalized weakness All medications have been reviewed PHYSICAL EXAMINATION: GENERAL: The patient is awake, alert and oriented x4, Well developed, elderly appearing, morbidly obese HEENT: Pupils are round and equally reacting to light. EOMI. no scleral icterus. No conjunctival pallor. Normocephalic, atraumatic. No pharyngeal erythema. No thyromegaly. CARDIOVASCULAR: S1 and S2 muffled PULMONARY: diminished breath sounds bilaterally with no wheezing or rhonchi noted. ABDOMEN: soft. Mildly tender on exam. Morbidly obese. non-distended, normoactive bowel sounds. No palpable organomegaly. MUSCULOSKELETAL: No joint swelling or deformity. EXTREMITIES: No cyanosis, clubbing, bilateral lower extremity edema noted NEUROLOGICAL: Gross neurological examination did not reveal any focal deficits. Diffuse weakness SKIN: No rashes. Assessment: Abdominal pain, likely secondary to acute ileus, resolved, surgery evaluated with no plans of intervention at this time recommending conservative management chest pain, ACS ruled out History of chronic achalasia History of recent urinary tract infection, treated outpatient. Bacteremia with culture showing Enterococcus and repeat cultures negative Echo reported with concerns of an echogenic area in the aortic valve consistent with vegetation, normal EF, status post OG 10/20/2024 with a 1.3 x 1.3 cm vegetation noticed on the ventricular aspect of the aortic valve suggestive of infective endocarditis, evidence of PFO noticed as well History of atrial fibrillation with previous history of ablation History of congestive heart failure, acute exacerbation Acute hypoxic respiratory failure, secondary to above History of DVT/PE Hypertension Hyperlipidemia Morbid obesity with a BMI of 42.3 GI prophylaxis DVT prophylaxis Full code Plan: Patient did have positive blood cultures with Enterococcus and infectious disease following with repeat cultures being negative. Patient did receive a PICC line as patient will require outpatient IV antibiotics on discharge Patient did have 2D echo that was noted to have concerns of vegetation on the a ortic valve. Cardiology has evaluated the patient and is status post OG revealing a 1.3 cm x 1.3 cm vegetation noticed on the ventricular aspect of the aortic valve suggestive of infective endocarditis with moderate aortic regurgitation no abscess formation noted with mild mitral regurgitation and tricuspid regurgitation as well as evidence of PFO and normal LV size and systolic function. Patient will need to undergo cardiac catheterization after clearance of bacteremia and CT surgery was consulted currently undergoing possible aortic valve replacement workup. Per cardiology there are no plans for repeat OG at this time recommending possible cardiac catheterization outpatient in the next 4 weeks once cultures remain negative, continued IV antibiotics, on discharge. Social work following as patient has no insurance currently and has been receiving unemployment. Patient has not made claims in the last 2 weeks and has not received any monies and has received a letter from [employer] reporting she has not made any claims over the last 2 weeks and this was provided to Medicaid residential sales representative and awaiting to have Medicaid initiated to be able to afford IV antibiotics and home care on discharge. This remains pending and we will follow-up on daily. Social work is in contact with [employer] Medicaid remains undetermined at this time. Given the holiday (31 October), Medicaid and ck ification of is not available on this day. Will follow-up likely on Sunday and hopeful for discharge planning at this time Patient lower extremity edema is improving and will continue with Scott wraps from the toes up to the knees and elevating while at rest. Continue on IV Lasix daily and will continue to monitor kidney functions and electrolytes closely. Will follow labs closely and replace electrolytes per protocol. Recommend fluid restrictions Encouraged increased activity as tolerated The impression and plan of care has been dictated by Nan Zhang, Nurse Practitioner as directed. Dr. Mickey MD I have performed a history and examination and MDM of this patient, discussed the same with the dictator, and agree with the dictator's assessment and plan as written ,documented as a scribe. Based on total visit time, I have performed more than 50% of the visit. Objective - Vital Signs Vital signs: Vital Signs Temp 98.2 F 10/31/24 13:55 Pulse 65 10/31/24 13:55 Resp 16 10/31/24 13:55 BP 117/67 10/31/24 13:55 Pulse Ox 92 L 10/31/24 13:55 FiO2 Intake & Output 10/30/24 10/31/24 10/31/24 18:59 06:59 18:59 Intake Total 340 180 240 Balance 340 180 240 Weight 133.81 kg Intake: Oral 340 180 240 Other: Voiding Method Bedside Commode Bedside Commode # Voids 4 3 2 # Bowel Movements 1 2 - Labs CBC & Chem 7: 10/29/24 04:46 10/29/24 04:46
--- NOTE | 2024-10-31 15:53 | P.PN ---
Subjective Progress Note Date: 10/31/24 Principal diagnosis: Reason for follow-up is Enterococcus faecalis bacteremia Patient is a 59-year-old female with a past medical history significant for hypertension hyperlipidemia osteoarthritis DVT atrial fibrillation recently treated in the outpatient setting from urgent care with the [facility] for UTI presenting to [facility] ER subsequently with persistent symptoms she has been complaining of lower abdominal pain as well as shortness of breath, negative UA but blood cultures came back positive Enterococcus faecalis CT abdominal pelvis no acute intra-abdominal pathology. 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 On today's evaluation that is 10/31/2024, the patient continues to be afebrile, the patient is on room air and breathing comfortably, the Pt denies having any chest pain or cough, the patient denies having any abdominal pain no vomiting and diarrhea has slowed down No new labs has been obtained today Objective - Vital Signs Vital signs: Vital Signs Temp 98.2 F 10/31/24 13:55 Pulse 65 10/31/24 13:55 Resp 16 10/31/24 13:55 BP 117/67 10/31/24 13:55 Pulse Ox 92 L 10/31/24 13:55 FiO2 Intake & Output 10/30/24 10/31/24 10/31/24 18:59 06:59 18:59 Intake Total 340 180 240 Balance 340 180 240 Weight 133.81 kg Intake: Oral 340 180 240 Other: Voiding Method Bedside Commode Bedside Commode # Voids 4 3 2 # Bowel Movements 1 2 - Exam GENERAL DESCRIPTION: Middle-age female lying in bed in no distress RESPIRATORY SYSTEM: Unlabored breathing , decreased breath sounds at bases HEART: S1 S2 regular rate and rhythm , ABDOMEN: Soft , no tenderness EXTREMITIES: No edema feet - Labs CBC & Chem 7: 10/29/24 04:46 10/29/24 04:46 Assessment and Plan (1) Abdominal pain Current Visit: Yes Status: Acute Code(s): R10.9 - UNSPECIFIED ABDOMINAL PAIN SNOMED Code(s): 79983901 (2) Bacteremia Current Visit: Yes Status: Acute Code(s): R78.81 - BACTEREMIA SNOMED Code(s): 0236498 (3) Enterococcus faecalis infection Current Visit: Yes Status: Acute Code(s): A49.8 - OTHER BACTERIAL INFECTIONS OF UNSPECIFIED SITE SNOMED Code(s): 834747662 Plan: 1patient presented to hospital with lower abdominal pain to have urinary symptoms recently completed course of Bactrim DS for UTI patient did have a negative UA more likely indicating adequate treatment of underlying UTI she has been complaining some abdominal pain however the patient did have a CT abdominal pelvis that has been negative for any acute process 2patient did have a positive blood culture Enterococcus faecalis which is usually of urinary or GI source however patient did have a negative UA CT abdominal pelvis done without contrast did not show acute intra-abdominal pathology, unfortunately CT abdominal pelvis was done again without oral and IV contrast and still waiting for echocardiogram report to be available as of 10/16/2024 3patient echocardiogram completed and reported as possible vegetation to the aortic valve cardiology plan is status post OG completed 10/20/2024 with evidence of aortic valve vegetation but no abscess CT surgery has been consulted following the patient closely apparently plan is for no surgery at this point as per discussion with the admitting team 4patient is on IV ampicillin and Rocephin and being monitored for her antibiotic therapy as well as clinical response and to make sure not developing any side effects from the treatment Dictation was produced using [employer] dictation software. please excuse any grammatical, word or spelling errors. Time with Patient: Less than 30
[2024-11-01 06:15] LABS: Basophils # (A) 0.04 10*3/uL (0.00-0.10); Basophils % (A) 0.7 %; Eosinophils # (A) 0.20 10*3/uL (0.04-0.35); Eosinophils % (A) 3.3 %; HCT 27.6 % (37.2-46.3); HGB 8.1 g/dL (12.0-15.0); Lymphocytes # (A) 1.22 10*3/uL (0.90-5.00); Lymphocytes % (A) 20.0 %; MCH 27.5 pg (27.0-32.0); MCHC 29.3 g/dL (32.0-37.0); MCV 93.6 fL (80.0-97.0); Monocytes # (A) 0.40 10*3/uL (0.20-1.00); Monocytes % (A) 6.6 %; Neutrophils # (A) 4.17 10*3/uL (1.80-7.70); Neutrophils % (A) 68.4 %; Platelet Count 205 10*3/uL (140-440); RBC 2.95 10*6/uL (4.10-5.20); RDW 19.3 % (11.5-14.5); WBC 6.09 10*3/uL (4.50-10.00)
[2024-11-01 06:53] LABS: African American GFR (CKD) >90 (>60 ml/min/1.73 sqM); Anion Gap 9 mmol/L; Blood Urea Nitrogen 16 mg/dL (7-17); Calcium 10.1 mg/dL (8.4-10.2); Carbon Dioxide 29 mmol/L (22-30); Chloride 105 mmol/L (98-107); Glucose 110 mg/dL (74-99); Magnesium 2.0 mg/dL (1.6-2.3); Non-African American GFR(CKD) >90 (>60 ml/min/1.73 sqM); Potassium 4.2 mmol/L (3.5-5.1); Sodium 143 mmol/L (137-145)
--- NOTE | 2024-11-01 15:27 | P.PN ---
Subjective Progress Note Date: 11/01/24 Principal diagnosis: Reason for follow-up is Enterococcus faecalis bacteremia Patient is a 59-year-old female with a past medical history significant for hypertension hyperlipidemia osteoarthritis DVT atrial fibrillation recently treated in the outpatient setting from urgent care with the Bactrim DS for UTI presenting to [facility] ER subsequently with persistent symptoms she has been complaining of lower abdominal pain as well as shortness of breath, negative UA but blood cultures came back positive Enterococcus faecalis CT abdominal pelvis no acute intra-abdominal pathology. 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 On today's evaluation that is 11/02/2023, patient did have a temperature of 98 F this afternoon and denies having any chills, patient is on room air and breathing comfortably no chest pain or cough, the patient did not have any nausea vomiting abdominal pain also complaining of some problem with diarrhea. Patient white count 6.09 creatinine 0.48 Objective - Vital Signs Vital signs: Vital Signs Temp 98 F 11/01/24 13:24 Pulse 67 11/01/24 13:24 Resp 20 11/01/24 13:24 BP 131/71 11/01/24 13:24 Pulse Ox 95 11/01/24 13:24 FiO2 Intake & Output 10/31/24 11/01/24 11/01/24 18:59 06:59 18:59 Intake Total 240 178 Balance 240 178 Intake: Oral 240 178 Other: Voiding Method Bedside Commode Bedside Commode Bedside Commode # Voids 2 2 # Bowel Movements 0 1 - Exam GENERAL DESCRIPTION: Middle-age female lying in bed in no distress RESPIRATORY SYSTEM: Unlabored breathing , decreased breath sounds at bases HEART: S1 S2 regular rate and rhythm , ABDOMEN: Soft , no tenderness EXTREMITIES: No edema feet - Labs CBC & Chem 7: 11/01/24 05:50 11/01/24 05:50 Labs: Abnormal Lab Results - Last 24 Hours (Table) 11/01/24 11/01/24 Range/Units 05:50 05:50 RBC 2.95 L (4.10-5.20) 10*6/uL Hgb 8.1 L (12.0-15.0) g/dL Hct 27.6 L (37.2-46.3) % MCHC 29.3 L (32.0-37.0) g/dL RDW 19.3 H (11.5-14.5) % Immature Gran # 0.06 H (0.00-0.04) 10*3/uL Creatinine 0.48 L (0.52-1.04) mg/dL Glucose 110 H (74-99) mg/dL Assessment and Plan (1) Abdominal pain Current Visit: Yes Status: Acute Code(s): R10.9 - UNSPECIFIED ABDOMINAL PAIN SNOMED Code(s): 47258174 (2) Bacteremia Current Visit: Yes Status: Acute Code(s): R78.81 - BACTEREMIA SNOMED Code(s): 8393544 (3) Enterococcus faecalis infection Current Visit: Yes Status: Acute Code(s): A49.8 - OTHER BACTERIAL INFECTIONS OF UNSPECIFIED SITE SNOMED Code(s): 445831199 Plan: 1patient presented to hospital with lower abdominal pain to have urinary symptoms recently completed course of Bactrim DS for UTI patient did have a negative UA more likely indicating adequate treatment of underlying UTI she has been complaining some abdominal pain however the patient did have a CT abdominal pelvis that has been negative for any acute process 2patient did have a positive blood culture Enterococcus faecalis which is usually of urinary or GI source however patient did have a negative UA CT abdominal pelvis done without contrast did not show acute intra-abdominal pathology, unfortunately CT abdominal pelvis was done again without oral and IV contrast and still waiting for echocardiogram report to be available as of 10/16/2024 3patient echocardiogram completed and reported as possible vegetation to the aortic valve cardiology plan is status post OG completed 10/20/2024 with evidence of aortic valve vegetation but no abscess CT surgery has been consulted following the patient closely apparently plan is for no surgery at this point as per discussion with the admitting team 4patient seem to be clinically tolerating IV ampicillin and Rocephin currently waiting for outpatient IV antibiotic arrangement and discharge Dictation was produced using [employer] software. please excuse any grammatical, word or spelling errors. Time with Patient: Less than 30
--- NOTE | 2024-11-01 19:25 | P.PN ---
Subjective Progress Note Date: 11/01/24 This is a pleasant 59-year-old female who was recently admitted with abdominal pain noted to have a dilated esophagus with ingested contents and achalasia. Patient reports she followed with GI in the outpatient setting many years ago and was told there is not much that can be done to correct this. Patient continues with abdominal pain with general surgery following with no plans of surgical intervention and no endoscopy at this time. Patient did have a blood culture that was positive and growing Enterococcus with infectious disease following. Await repeat cultures to determine clearance of bacteremia. Encouraged increase activity as tolerated with sitting up more frequently in the chair. 10/16/2024 Patient is seen in follow-up today with no acute overnight issues. Patient continues to report some abdominal pain although feels she reports it is gas pains. Patient awaiting repeat cultures and is maintained on ampicillin with infectious disease following as initial blood culture showing Enterococcus faecalis. Awaiting repeat blood cultures to determine bacteremia clearance. General surgery has evaluated the patient with no surgical interventions planned recommending to continue with bowel regimen especially on discharge. 10/17/2024 Patient is seen in follow-up today continues to report abdominal pain. Echo report was resulted and there is some echogenic area noted on the aortic valve consistent with vegetation with mild to moderate aortic regurgitation and moderate pulmonary hypertension along with moderate mitral and mild tricuspid regurgitation noted. Patient previous blood cultures were positive showing Enterococcus and repeat cultures thus far have been negative. Will consult cardiology to discuss the need of possible OG for further evaluation. Patient to continue on IV antibiotics with infectious disease following at this time. Continue current as well as bowel regimen. Patient is afebrile with no reported chest pain or shortness of breath. Encouraging increasing activity as tolerated and getting up more frequently. 10/18/2024 Patient seen in follow-up today with no acute overnight issues noted. Patient to be evaluated by cardiology for possible OG and to further evaluate echo as patient is noted to have positive blood cultures and concerns of vegetation. Patient is continued on antibiotics with infectious disease following and repeat blood cultures remain negative thus far. Patient is afebrile and white count is normal with no reported chest pain or shortness of breath. Encouraged increase activity as tolerated. Will follow-up on repeat labs. 10/19/2024 Patient is seen in follow-up today reporting some nausea and will add Zofran and continue with Protonix. Patient was evaluated by cardiology awaiting to obtain records from previous stress test and/or cardiac catheterization as patient recently underwent ablation in the outpatient setting also on previous admissions. Patient tentatively plan for OG on Sunday with cardiology. Repeat cultures remain negative thus far with infectious disease following maintained on current antibiotics and will continue. Encouraged increased activity as tolerated and will follow-up on repeat labs. To inquire with case management/social work on Sunday regarding treatment plan moving forward and if patient is any further on Medicaid application as patient currently has no insurance. 10/20/2024 Patient is seen and evaluated in follow-up with multiple consultations following including infectious disease as patient did have positive blood cultures with Enterococcus. Patient awaiting to undergo OG today with cardiology following and is currently NPO. Hemoglobin is stable at 8.1 with no active bleeding noted, white count remains within normal limits at 4.97, sodium is 140 with a p otassium of 3.6 and creatinine is 0.5. Will await official OG report and discuss further with findings regarding discharge planning as patient may likely need IV antibiotics on discharge. Patient currently has no insurance and apparently has been receiving unemployment which is delaying her receiving insurance. Per social work, patient is to contact [employer] regarding this. 10/21/2024 Patient is seen in follow-up today with no acute overnight issues noted. Patient to receive a PICC line as patient will require IV antibiotics outpatient. Social work currently working with the patient as she has no insurance but has not been receiving insurance as patient is receiving unemployment. Arrangements will need to be made prior to discharge for IV antibiotic therapy as patient was noted to have a positive presentation on OG. Recent repeat blood culture is negative and will continue current regimen. Patient is afebrile with no reports of chest pain or shortness of breath. Patient tolerating diet with occasional nausea and no vomiting noted. Patient has been up and walking although continues with some weakness. Encouraged to increase activity as tolerated and walking multiple times throughout the day 10/22/2024 Patient is seen in follow-up today has received a PICC line currently awaiting a call back from [employer] to be able to initiate insurance as patient currently has no insurance. Repeat blood cultures are negative although patient was positive for OG with vegetation on the aortic valve. Cardiology following and has consulted CT surgery for further possible aortic valve replacement. Patient is continued on antibiotics with infectious disease following and will continue. Patient will require cardiac catheterization prior to valve replacement and is undergoing further initial workup. Cardiology recommends negative blood cultures prior to proceeding with catheterization. Repeat blood cultures thus far negative for 4 days. Patient is afebrile with no reports of chest pain or shortness of breath. Patient reports has been up and walking although is significantly weak. Encouraged increased activity as tolerated including sitting up in the chair more frequently. 10/23/2024 Patient is seen in follow-up with multiple consultations following. Cardiology with no plans of OG at this time recommending continue with IV antibiotic therapy for 4 weeks and reevaluation to discuss repeat OG and/or cardiac catheterization to ensure if patient truly needs aortic valve surgery. CT surgery following is undergoing further surgical workup. Patient has received a PICC line and will require IV antibiotics on discharge currently awaiting unemployment office to close her case so she can receive Medicaid. Social work is working diligently with the patient on this. The jones of home care nursing and equipment along with medications is quite expensive and patient unable to afford. Patient reports she is awaiting a call from the unemployment office. Patient is afebrile with no reports of chest pain or shortness of breath. Patient tolerating diet and continues to have bowel movements. Occasional nausea with no vomiting at this time. 10/24/2024 Patient is seen in follow-up today reporting some mild increase shortness of breath. Patient is maintained on 2 L with oxygen saturations above 96%. Patient is continued on oral Lasix although may benefit from IV Lasix as patient does appear to be edematous. Will obtain a chest x-ray. Patient is maintained on IV antibiotics with infectious disease following and will continue with outpatient IV antibiotics. Social work is following and will follow-up with unemployment and Medicaid after Sunday as patient needs to verify there have been no documented unemployment claims to receive payment for the last 2 weeks. Encouraged increase activity as tolerated recommend elevating lower extremities while at rest. Patient's family brought her compression stockings and and recommend to continue at this time. 10/27/2024 Patient is seen in follow-up today continued on antibiotics with infectious disease following. Patient to continue on IV Lasix for now as there is significant lower extremity swelling noted. Patient did have compression stockings on although was removed and patient is lower extremity dependent while sitting up in the chair. Encouraged elevating while at rest and continued compression stocking use. Patient has received paperwork regarding no documented claims on unemployment to provide to the Medicaid to receive insurance. This is pending and will need to determine if insurance has been activated to ensure safe discharge planning. Social work is following and will follow daily with Medicaid claims customer service representative and also to arrange for outpatient IV antibiotic therapy. 10/28/2024 Patient is seen in follow-up today maintained on antibiotics and swelling of the lower extremities is slightly improved we will continue with IV Lasix and follow-up on repeat labs. Replace electrolytes per protocol. Patient reports is tolerating diet with small frequent meals and no nausea or vomiting noted. Patient does have a PICC line and is awaiting for insurance approval to initiate Medicaid so patient can discharge home on continued IV antibiotic therapy due to a vegetation on the aortic valve. Patient will need extensive outpatient follow-up with cardiology and CT surgery along with infectious disease. Social work is following and being updated daily. 10/29/2024 Patient is seen in follow-up today continues to sit in the chair and reporting her lower extremities are becoming more swollen again. Patient has compression stockings although is not been wearing them. Patient is maintained on daily Lasix and will continue to monitor kidney functions closely. No reports of gross recommend Scott wrapping from the toes up to the knees and elevating while at rest. Patient remains to be awaiting insurance determination with Medicaid to determine appropriate discharge planning including IV antibiotics and home care. 10/30/2024 Patient is seen in follow-up today with no acute overnight issues noted. Patient does have Scott wraps applied to bilateral lower extremities showing some improvements in lower extremity swelling and will continue on daily IV Lasix. Patient is tolerating well and kidney functions and electrolytes within normal limits. Patient continues to await Medicaid approval for discharge planning for continued IV antibiotics and home care in the outpatient setting. Patient is tolerating diet with no reports of nausea or vomiting. Patient is having bowel movements and denies diarrhea. Patient is continued on antibiotics with infectious disease following closely and discharge remains pending secondary to Medicaid. 10/31/2024 Patient is seen in follow-up today with infectious disease following. Patient is continued on IV antibiotics and has a PICC line in the left upper extremity. Patient is maintained on daily IV Lasix for continued lower extremity edema and normally takes Lasix daily. Patient to continue with Scott wrapping and elevating lower extremities while at rest. Patient continues to await insurance to be activated and Medicaid claims customer service representative [facility] is not working currently due to the holiday and will likely return on Sunday. Medicaid application remains pending at this time and will follow-up with social work on Sunday. Continue current regimen and will follow-up with repeat labs. Replace electrolytes per protocol. Encouraged increase activity as tolerated with frequently getting up and walking. Plan will be for home with home care with continued IV antibiotic therapy. 11.01.2024 Patient is evaluated today in follow up on the medical floor. Family at the bedside. No acute complaints. Awaiting to hear back about medicaid application from the [facility] claims customer service representative. States she turned in all necessary paperwork and is hoping to hear Sunday for a decision. Continues on Iv antibiotics through PICC Line while inpatient. States the chest pain has subsided. Reporting no shortness of breath. WBC 6.09, hgb 8.1. Review of systems: Constitutional: No reports of fatigue, fever, or chills Cardiovascular: No reports of chest pain or palpitations Respiratory: reports of intermittent shortness of breath, denies cough GI: reports of occasional nausea, no reports of vomiting, reports improvement in abdominal discomfort and tenderness, reports having bowel movements : No reports of dysuria or retention Neurovascular: reports of generalized weakness All medications have been reviewed PHYSICAL EXAMINATION: GENERAL: The patient is awake, alert and oriented x4, Well developed, elderly appearing, morbidly obese HEENT: Pupils are round and equally reacting to light. EOMI. no scleral icterus. No conjunctival pallor. Normocephalic, atraumatic. No pharyngeal erythema. No thyromegaly. CARDIOVASCULAR: S1 and S2 muffled PULMONARY: diminished breath sounds bilaterally with no wheezing or rhonchi noted. ABDOMEN: soft. Mildly tender on exam. Morbidly obese. non-distended, normoactive bowel sounds. No palpable organomegaly. MUSCULOSKELETAL: No joint swelling or deformity. EXTREMITIES: No cyanosis, clubbing, bilateral lower extremity edema noted NEUROLOGICAL: Gross neurological examination did not reveal any focal deficits. Diffuse weakness SKIN: No rashes. Assessment: Abdominal pain, likely secondary to acute ileus, resolved, surgery evaluated with no plans of intervention at this time recommending conservative management Diarrhea likely from antibiotic use chest pain, ACS ruled out History of chronic achalasia History of recent urinary tract infection, treated outpatient. Bacteremia with culture showing Enterococcus and repeat cultures negative Echo reported with concerns of an echogenic area in the aortic valve consistent with vegetation, normal EF, status post OG 10/20/2024 with a 1.3 x 1.3 cm vegetation noticed on the ventricular aspect of the aortic valve suggestive of infective endocarditis, evidence of PFO noticed as well History of atrial fibrillation with previous history of ablation History of congestive heart failure, acute exacerbation Acute hypoxic respiratory failure, secondary to above History of DVT/PE Hypertension Hyperlipidemia Morbid obesity with a BMI of 42.3 GI prophylaxis DVT prophylaxis Full code Plan: Patient did receive a PICC line as patient will require outpatient IV antibiotics on discharge Patient will need to undergo cardiac catheterization after clearance of bacteremia and CT surgery was consulted currently undergoing possible aortic valve replacement workup. Per cardiology there are no plans for repeat OG at this time recommending possible cardiac catheterization outpatient in the next 4 weeks once cultures re main negative, continued IV antibiotics, on discharge. Social work following as patient has no insurance currently and has been receiving unemployment. Patient has not made claims in the last 2 weeks and has not received any monies and has received a letter from [employer] reporting she has not made any claims over the last 2 weeks and this was provided to Medicaid claims customer service representative and awaiting to have Medicaid initiated to be able to afford IV antibiotics and home care on discharge. This remains pending and we will follow-up on daily. Social work is in contact with [employer] Medicaid remains undetermined at this time. Will follow-up likely on Sunday and hopeful for discharge planning at this time Patient lower extremity edema is improving and will continue with Scott wraps from the toes up to the knees and elevating while at rest. Continue on IV Lasix daily and will continue to monitor kidney functions and electrolytes closely. Will follow labs closely and replace electrolytes per protocol. Recommend fluid restrictions Encouraged increased activity as tolerated The impression and plan of care has been dictated by Justa Mora, Nurse Practitioner as directed. Dr. Aroldo MD I have performed a history and physical examination and medical decision making of this patient, discussed the same with the dictator, and agree with the dictators assessment and plan as written, documented as a scribe. Based on total visit time, I have performed more than 50% of this visit. Objective - Vital Signs Vital signs: Vital Signs Temp 98 F 11/01/24 13:24 Pulse 67 11/01/24 13:24 Resp 20 11/01/24 13:24 BP 131/71 11/01/24 13:24 Pulse Ox 95 11/01/24 13:24 FiO2 Intake & Output 10/31/24 11/01/24 11/01/24 18:59 06:59 18:59 Intake Total 240 178 Balance 240 178 Intake: Oral 240 178 Other: Voiding Method Bedside Commode Bedside Commode Bedside Commode # Voids 2 2 # Bowel Movements 0 1 - Labs CBC & Chem 7: 11/01/24 05:50 11/01/24 05:50 Labs: Abnormal Lab Results - Last 24 Hours (Table) 11/01/24 11/01/24 Range/Units 05:50 05:50 RBC 2.95 L (4.10-5.20) 10*6/uL Hgb 8.1 L (12.0-15.0) g/dL Hct 27.6 L (37.2-46.3) % MCHC 29.3 L (32.0-37.0) g/dL RDW 19.3 H (11.5-14.5) % Immature Gran # 0.06 H (0.00-0.04) 10*3/uL Creatinine 0.48 L (0.52-1.04) mg/dL Glucose 110 H (74-99) mg/dL Assessment and Plan Time with Patient: Less than 30
--- NOTE | 2024-11-02 16:01 | P.PN ---
Subjective Progress Note Date: 11/02/24 This is a pleasant 59-year-old female who was recently admitted with abdominal pain noted to have a dilated esophagus with ingested contents and achalasia. Patient reports she followed with GI in the outpatient setting many years ago and was told there is not much that can be done to correct this. Patient continues with abdominal pain with general surgery following with no plans of surgical intervention and no endoscopy at this time. Patient did have a blood culture that was positive and growing Enterococcus with infectious disease following. Await repeat cultures to determine clearance of bacteremia. Encouraged increase activity as tolerated with sitting up more frequently in the chair. 10/16/2024 Patient is seen in follow-up today with no acute overnight issues. Patient continues to report some abdominal pain although feels she reports it is gas pains. Patient awaiting repeat cultures and is maintained on ampicillin with infectious disease following as initial blood culture showing Enterococcus faecalis. Awaiting repeat blood cultures to determine bacteremia clearance. General surgery has evaluated the patient with no surgical interventions planned recommending to continue with bowel regimen especially on discharge. 10/17/2024 Patient is seen in follow-up today continues to report abdominal pain. Echo report was resulted and there is some echogenic area noted on the aortic valve consistent with vegetation with mild to moderate aortic regurgitation and moderate pulmonary hypertension along with moderate mitral and mild tricuspid regurgitation noted. Patient previous blood cultures were positive showing Enterococcus and repeat cultures thus far have been negative. Will consult cardiology to discuss the need of possible OG for further evaluation. Patient to continue on IV antibiotics with infectious disease following at this time. Continue current as well as bowel regimen. Patient is afebrile with no reported chest pain or shortness of breath. Encouraging increasing activity as tolerated and getting up more frequently. 10/18/2024 Patient seen in follow-up today with no acute overnight issues noted. Patient to be evaluated by cardiology for possible OG and to further evaluate echo as patient is noted to have positive blood cultures and concerns of vegetation. Patient is continued on antibiotics with infectious disease following and repeat blood cultures remain negative thus far. Patient is afebrile and white count is normal with no reported chest pain or shortness of breath. Encouraged increase activity as tolerated. Will follow-up on repeat labs. 10/19/2024 Patient is seen in follow-up today reporting some nausea and will add Zofran and continue with Protonix. Patient was evaluated by cardiology awaiting to obtain records from previous stress test and/or cardiac catheterization as patient recently underwent ablation in the outpatient setting also on previous admissions. Patient tentatively plan for OG on Sunday with cardiology. Repeat cultures remain negative thus far with infectious disease following maintained on current antibiotics and will continue. Encouraged increased activity as tolerated and will follow-up on repeat labs. To inquire with case management/social work on Sunday regarding treatment plan moving forward and if patient is any further on Medicaid application as patient currently has no insurance. 10/20/2024 Patient is seen and evaluated in follow-up with multiple consultations following including infectious disease as patient did have positive blood cultures with Enterococcus. Patient awaiting to undergo OG today with cardiology following and is currently NPO. Hemoglobin is stable at 8.1 with no active bleeding noted, white count remains within normal limits at 4.97, sodium is 140 with a p otassium of 3.6 and creatinine is 0.5. Will await official OG report and discuss further with findings regarding discharge planning as patient may likely need IV antibiotics on discharge. Patient currently has no insurance and apparently has been receiving unemployment which is delaying her receiving insurance. Per social work, patient is to contact [employer] regarding this. 10/21/2024 Patient is seen in follow-up today with no acute overnight issues noted. Patient to receive a PICC line as patient will require IV antibiotics outpatient. Social work currently working with the patient as she has no insurance but has not been receiving insurance as patient is receiving unemployment. Arrangements will need to be made prior to discharge for IV antibiotic therapy as patient was noted to have a positive presentation on OG. Recent repeat blood culture is negative and will continue current regimen. Patient is afebrile with no reports of chest pain or shortness of breath. Patient tolerating diet with occasional nausea and no vomiting noted. Patient has been up and walking although continues with some weakness. Encouraged to increase activity as tolerated and walking multiple times throughout the day 10/22/2024 Patient is seen in follow-up today has received a PICC line currently awaiting a call back from [employer] to be able to initiate insurance as patient currently has no insurance. Repeat blood cultures are negative although patient was positive for OG with vegetation on the aortic valve. Cardiology following and has consulted CT surgery for further possible aortic valve replacement. Patient is continued on antibiotics with infectious disease following and will continue. Patient will require cardiac catheterization prior to valve replacement and is undergoing further initial workup. Cardiology recommends negative blood cultures prior to proceeding with catheterization. Repeat blood cultures thus far negative for 4 days. Patient is afebrile with no reports of chest pain or shortness of breath. Patient reports has been up and walking although is significantly weak. Encouraged increased activity as tolerated including sitting up in the chair more frequently. 10/23/2024 Patient is seen in follow-up with multiple consultations following. Cardiology with no plans of OG at this time recommending continue with IV antibiotic therapy for 4 weeks and reevaluation to discuss repeat OG and/or cardiac catheterization to ensure if patient truly needs aortic valve surgery. CT surgery following is undergoing further surgical workup. Patient has received a PICC line and will require IV antibiotics on discharge currently awaiting unemployment office to close her case so she can receive Medicaid. Social work is working diligently with the patient on this. The jones of home care nursing and equipment along with medications is quite expensive and patient unable to afford. Patient reports she is awaiting a call from the unemployment office. Patient is afebrile with no reports of chest pain or shortness of breath. Patient tolerating diet and continues to have bowel movements. Occasional nausea with no vomiting at this time. 10/24/2024 Patient is seen in follow-up today reporting some mild increase shortness of breath. Patient is maintained on 2 L with oxygen saturations above 96%. Patient is continued on oral Lasix although may benefit from IV Lasix as patient does appear to be edematous. Will obtain a chest x-ray. Patient is maintained on IV antibiotics with infectious disease following and will continue with outpatient IV antibiotics. Social work is following and will follow-up with unemployment and Medicaid after Sunday as patient needs to verify there have been no documented unemployment claims to receive payment for the last 2 weeks. Encouraged increase activity as tolerated recommend elevating lower extremities while at rest. Patient's family brought her compression stockings and and recommend to continue at this time. 10/27/2024 Patient is seen in follow-up today continued on antibiotics with infectious disease following. Patient to continue on IV Lasix for now as there is significant lower extremity swelling noted. Patient did have compression stockings on although was removed and patient is lower extremity dependent while sitting up in the chair. Encouraged elevating while at rest and continued compression stocking use. Patient has received paperwork regarding no documented claims on unemployment to provide to the Medicaid to receive insurance. This is pending and will need to determine if insurance has been activated to ensure safe discharge planning. Social work is following and will follow daily with Medicaid circulation sales representative and also to arrange for outpatient IV antibiotic therapy. 10/28/2024 Patient is seen in follow-up today maintained on antibiotics and swelling of the lower extremities is slightly improved we will continue with IV Lasix and follow-up on repeat labs. Replace electrolytes per protocol. Patient reports is tolerating diet with small frequent meals and no nausea or vomiting noted. Patient does have a PICC line and is awaiting for insurance approval to initiate Medicaid so patient can discharge home on continued IV antibiotic therapy due to a vegetation on the aortic valve. Patient will need extensive outpatient follow-up with cardiology and CT surgery along with infectious disease. Social work is following and being updated daily. 10/29/2024 Patient is seen in follow-up today continues to sit in the chair and reporting her lower extremities are becoming more swollen again. Patient has compression stockings although is not been wearing them. Patient is maintained on daily Lasix and will continue to monitor kidney functions closely. No reports of gross recommend Scott wrapping from the toes up to the knees and elevating while at rest. Patient remains to be awaiting insurance determination with Medicaid to determine appropriate discharge planning including IV antibiotics and home care. 10/30/2024 Patient is seen in follow-up today with no acute overnight issues noted. Patient does have Scott wraps applied to bilateral lower extremities showing some improvements in lower extremity swelling and will continue on daily IV Lasix. Patient is tolerating well and kidney functions and electrolytes within normal limits. Patient continues to await Medicaid approval for discharge planning for continued IV antibiotics and home care in the outpatient setting. Patient is tolerating diet with no reports of nausea or vomiting. Patient is having bowel movements and denies diarrhea. Patient is continued on antibiotics with infectious disease following closely and discharge remains pending secondary to Medicaid. 10/31/2024 Patient is seen in follow-up today with infectious disease following. Patient is continued on IV antibiotics and has a PICC line in the left upper extremity. Patient is maintained on daily IV Lasix for continued lower extremity edema and normally takes Lasix daily. Patient to continue with Scott wrapping and elevating lower extremities while at rest. Patient continues to await insurance to be activated and Medicaid circulation sales representative from [facility] is not working currently due to the holiday and will likely return on Sunday. Medicaid application remains pending at this time and will follow-up with social work on Sunday. Continue current regimen and will follow-up with repeat labs. Replace electrolytes per protocol. Encouraged increase activity as tolerated with frequently getting up and walking. Plan will be for home with home care with continued IV antibiotic therapy. 11.01.2024 Patient is evaluated today in follow up on the medical floor. Family at the bedside. No acute complaints. Awaiting to hear back about medicaid application from the [facility] circulation sales representative. States she turned in all necessary paperwork and is hoping to hear Sunday for a decision. Continues on Iv antibiotics through PICC Line while inpatient. States the chest pain has subsided. Reporting no shortness of breath. WBC 6.09, hgb 8.1. 11/02/2024 Patient evaluated today in follow-up on the medical floor. Awaiting follow-up from a [employer] circulation sales representative and social work regarding her Medicaid application and discharge planning tomorrow. She continues on IV antibiotics with a PICC line. She continues to report multiple episodes of loose stools felt to be due to the antibiotic. She continues on Questran twice daily. She is also on IV Lasix. Review of systems: Constitutional: No reports of fatigue, fever, or chills Cardiovascular: No reports of chest pain or palpitations Respiratory: reports of intermittent shortness of breath, denies cough GI: reports of occasional nausea, no reports of vomiting, reports improvement in abdominal discomfort and tenderness, reports having bowel movements : No reports of dysuria or retention Neurovascular: reports of generalized weakness All medications have been reviewed PHYSICAL EXAMINATION: GENERAL: The patient is awake, alert and oriented x4, Well developed, elderly appearing, morbidly obese HEENT: Pupils are round and equally reacting to light. EOMI. no scleral icterus. No conjunctival pallor. Normocephalic, atraumatic. No pharyngeal erythema. No thyromegaly. CARDIOVASCULAR: S1 and S2 muffled PULMONARY: diminished breath sounds bilaterally with no wheezing or rhonchi noted. ABDOMEN: soft. Mildly tender on exam. Morbidly obese. non-distended, normoactive bowel sounds. No palpable organomegaly. MUSCULOSKELETAL: No joint swelling or deformity. EXTREMITIES: No cyanosis, clubbing, bilateral lower extremity edema noted NEUROLOGICAL: Gross neurological examination did not reveal any focal deficits. Diffuse weakness SKIN: No rashes. Assessment: Abdominal pain, likely secondary to acute ileus, resolved, surgery evaluated with no plans of intervention at this time recommending conservative management Diarrhea likely from antibiotic use chest pain, ACS ruled out History of chronic achalasia History of recent urinary tract infection, treated outpatient. Bacteremia with culture showing Enterococcus and repeat cultures negative Echo reported with concerns of an echogenic area in the aortic valve consistent with vegetation, normal EF, status post OG 10/20/2024 with a 1.3 x 1.3 cm vegetation noticed on the ventricular aspect of the aortic valve suggestive of infective endocarditis, evidence of PFO noticed as well History of atrial fibrillation with previous history of ablation History of congestive heart failure, acute exacerbation Acute hypoxic respiratory failure, secondary to above History of DVT/PE Hypertension Hyperlipidemia Morbid obesity with a BMI of 42.3 GI prophylaxis DVT prophylaxis Full code Plan: Patient did receive a PICC line as patient will require outpatient IV antibiotics on discharge Patient will need to undergo cardiac catheterization after clearance of bacteremia and CT surgery was consulted currently undergoing possible aortic valve replacement workup. Per cardiology there are no plans for repeat OG at this time recommending possible cardiac catheterization outpatient in the next 4 weeks once cultures remain negative, continued IV antibiotics, on discharge. Social work following as patient has no insurance currently and has been receiving unemployment. Patient has not made claims in the last 2 weeks and has not received any monies and has received a letter from [employer] reporting she has not made any claims over the last 2 weeks and this was provided to Medicaid circulation sales representative and awaiting to have Medicaid initiated to be able to afford IV antibiotics and home care on discharge. This remains pending and we will follow-up on daily. Social work is in contact with [employer] Medicaid remains undetermined at this time. Will follow-up likely on Sunday and hopeful for discharge planning at this time Patient lower extremity edema is improving and will continue with Scott wraps from the toes up to the knees and elevating while at rest. Continue on IV Lasix daily and will continue to monitor kidney functions and electrolytes closely. Will follow labs closely and replace electrolytes per protocol. Recommend fluid restrictions Encouraged increased activity as tolerated The impression and plan of care has been dictated by Justa Mora, Nurse Practitioner as directed. Dr. Aroldo MD I have performed a history and physical examination and medical decision making of this patient, discussed the same with the dictator, and agree with the dictators assessment and plan as written, documented as a scribe. Based on total visit time, I have performed more than 50% of this visit. Objective - Vital Signs Vital signs: Vital Signs Temp 97.7 F 11/02/24 06:48 Pulse 74 11/02/24 06:48 Resp 20 11/02/24 06:48 BP 155/72 11/02/24 06:48 Pulse Ox 100 11/02/24 06:48 FiO2 Intake & Output 11/01/24 11/02/24 11/02/24 18:59 06:59 18:59 Intake Total 478 118 Balance 478 118 Intake: Oral 478 118 Other: Voiding Method Bedside Commode Bedside Commode Toilet # Voids 3 3 # Bowel Movements 1 1 - Labs CBC & Chem 7: 11/01/24 05:50 11/01/24 05:50 Assessment and Plan Time with Patient: Less than 30
--- NOTE | 2024-11-02 16:48 | P.PN ---
Subjective Progress Note Date: 11/02/24 Principal diagnosis: Reason for follow-up is Enterococcus faecalis bacteremia Patient is a 59-year-old female with a past medical history significant for hypertension hyperlipidemia osteoarthritis DVT atrial fibrillation recently treated in the outpatient setting from urgent care with the [facility] for UTI presenting to [facility] ER subsequently with persistent symptoms she has been complaining of lower abdominal pain as well as shortness of breath, negative UA but blood cultures came back positive Enterococcus faecalis CT abdominal pelvis no acute intra-abdominal pathology. 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 On today's evaluation that is 11/02/2024, Patient is afebrile patient is currently on room air and denies having any shortness of breath, the patient denies any chest pain or cough, the patient denies any nausea vomiting did not have any abdominal pain however complaining of persistent diarrhea. No new lab has been obtained today Objective - Vital Signs Vital signs: Vital Signs Temp 98.5 F 11/02/24 13:45 Pulse 79 11/02/24 13:45 Resp 18 11/02/24 13:45 BP 131/69 11/02/24 13:45 Pulse Ox 95 11/02/24 13:45 FiO2 Intake & Output 11/01/24 11/02/24 11/02/24 18:59 06:59 18:59 Intake Total 478 118 Balance 478 118 Intake: Oral 478 118 Other: Voiding Method Bedside Commode Bedside Commode Toilet # Voids 3 3 # Bowel Movements 1 1 - Exam GENERAL DESCRIPTION: Middle-age female lying in bed in no distress RESPIRATORY SYSTEM: Unlabored breathing , decreased breath sounds at bases HEART: S1 S2 regular rate and rhythm , ABDOMEN: Soft , no tenderness EXTREMITIES: No edema feet - Labs CBC & Chem 7: 11/01/24 05:50 11/01/24 05:50 Assessment and Plan (1) Abdominal pain Current Visit: Yes Status: Acute Code(s): R10.9 - UNSPECIFIED ABDOMINAL PAIN SNOMED Code(s): 09895361 (2) Bacteremia Current Visit: Yes Status: Acute Code(s): R78.81 - BACTEREMIA SNOMED Code(s): 7964913 (3) Enterococcus faecalis infection Current Visit: Yes Status: Acute Code(s): A49.8 - OTHER BACTERIAL INFECTIONS OF UNSPECIFIED SITE SNOMED Code(s): 570183028 (4) Diarrhea Current Visit: Yes Status: Acute Code(s): R19.7 - DIARRHEA, UNSPECIFIED SNOMED Code(s): 08763082 Plan: 1patient presented to hospital with lower abdominal pain to have urinary symptoms recently completed course of Bactrim DS for UTI patient did have a negative UA more likely indicating adequate treatment of underlying UTI she has been complaining some abdominal pain however the patient did have a CT abdominal pelvis that has been negative for any acute process 2patient did have a positive blood culture Enterococcus faecalis which is usually of urinary or GI source however patient did have a negative UA CT abdominal pelvis done without contrast did not show acute intra-abdominal pathology, unfortunately CT abdominal pelvis was done again without oral and IV contrast and still waiting for echocardiogram report to be available as of 2024 3patient echocardiogram completed and reported as possible vegetation to the aortic valve cardiology plan is status post OG completed 10/20/2024 with evidence of aortic valve vegetation but no abscess CT surgery has been consulted following the patient closely apparently plan is for no surgery at this point as per discussion with the admitting team 4patient seem to have persistent problem with the diarrhea we will go ahead and check a stool for C. difficile if negative we can add to Lomotil for now continue with the Questran and the patient will be continued on ampicillin and Rocephin for her endocarditis Dictation was produced using [employer] dictation software. please excuse any gramma tical, word or spelling errors. Time with Patient: Less than 30
[2024-11-02] MEDS: MELATONIN 5 MG TABLET PO SCH (20:12)
[2024-11-03 08:27] LABS: Basophils # (A) 0.03 X 10*3/uL (0.00-0.10); Basophils % (A) 0.5 %; Eosinophils # (A) 0.17 X 10*3/uL (0.04-0.35); Eosinophils % (A) 2.8 %; HCT 28.0 % (37.2-46.3); HGB 8.0 g/dL (12.0-15.0); Immature Grans, Automated 1.30 %; Lymphocytes # (A) 1.29 X 10*3/uL (0.90-5.00); Lymphocytes % (A) 21.6 %; MCH 26.9 pg (27.0-32.0); MCHC 28.6 g/dL (32.0-37.0); MCV 94.3 FL (80.0-97.0); Monocytes # (A) 0.40 X 10*3/uL (0.20-1.00); Monocytes % (A) 6.7 %; NRBC Per 100 WBC 0 X 10*3/uL (0.00-0.01); Neutrophils # (A) 4.01 X 10*3/uL (1.80-7.70); Neutrophils % (A) 67.1 %; Platelet Count 256 X 10*3/uL (140-440); RBC 2.97 X 10*6/uL (4.10-5.20); RDW 19.9 % (11.5-14.5); WBC 5.98 X 10*3/uL (4.50-10.00)
[2024-11-03 08:37] LABS: Anion Gap 9.30 mmol/L (4.00-12.00); BUN/Creat Ratio 30.00 Ratio (12.00-20.00); Blood Urea Nitrogen 15.0 mg/dL (9.0-27.0); Calcium 9.4 mg/dL (8.7-10.3); Carbon Dioxide 27.7 mmol/L (21.6-31.8); Chloride 107 mmol/L (96-109); Glucose 116 mg/dL (70-110); Potassium 4.3 mmol/L (3.5-5.5); Sodium 144 mmol/L (135-145)
[2024-11-03] MEDS: LOPERAMIDE 2 MG CAP PO PRN (11:40)
--- NOTE | 2024-11-03 20:05 | P.PN ---
Subjective Progress Note Date: 11/03/24 This is a pleasant 59-year-old female who was recently admitted with abdominal pain noted to have a dilated esophagus with ingested contents and achalasia. Patient reports she followed with GI in the outpatient setting many years ago and was told there is not much that can be done to correct this. Patient continues with abdominal pain with general surgery following with no plans of surgical intervention and no endoscopy at this time. Patient did have a blood culture that was positive and growing Enterococcus with infectious disease following. Await repeat cultures to determine clearance of bacteremia. Encouraged increase activity as tolerated with sitting up more frequently in the chair. 10/16/2024 Patient is seen in follow-up today with no acute overnight issues. Patient continues to report some abdominal pain although feels she reports it is gas pains. Patient awaiting repeat cultures and is maintained on ampicillin with infectious disease following as initial blood culture showing Enterococcus faecalis. Awaiting repeat blood cultures to determine bacteremia clearance. General surgery has evaluated the patient with no surgical interventions planned recommending to continue with bowel regimen especially on discharge. 10/17/2024 Patient is seen in follow-up today continues to report abdominal pain. Echo report was resulted and there is some echogenic area noted on the aortic valve consistent with vegetation with mild to moderate aortic regurgitation and moderate pulmonary hypertension along with moderate mitral and mild tricuspid regurgitation noted. Patient previous blood cultures were positive showing Enterococcus and repeat cultures thus far have been negative. Will consult cardiology to discuss the need of possible OG for further evaluation. Patient to continue on IV antibiotics with infectious disease following at this time. Continue current as well as bowel regimen. Patient is afebrile with no reported chest pain or shortness of breath. Encouraging increasing activity as tolerated and getting up more frequently. 10/18/2024 Patient seen in follow-up today with no acute overnight issues noted. Patient to be evaluated by cardiology for possible OG and to further evaluate echo as patient is noted to have positive blood cultures and concerns of vegetation. Patient is continued on antibiotics with infectious disease following and repeat blood cultures remain negative thus far. Patient is afebrile and white count is normal with no reported chest pain or shortness of breath. Encouraged increase activity as tolerated. Will follow-up on repeat labs. 10/19/2024 Patient is seen in follow-up today reporting some nausea and will add Zofran and continue with Protonix. Patient was evaluated by cardiology awaiting to obtain records from previous stress test and/or cardiac catheterization as patient recently underwent ablation in the outpatient setting also on previous admissions. Patient tentatively plan for OG on Sunday with cardiology. Repeat cultures remain negative thus far with infectious disease following maintained on current antibiotics and will continue. Encouraged increased activity as tolerated and will follow-up on repeat labs. To inquire with case management/social work on Sunday regarding treatment plan moving forward and if patient is any further on Medicaid application as patient currently has no insurance. 10/20/2024 Patient is seen and evaluated in follow-up with multiple consultations following including infectious disease as patient did have positive blood cultures with Enterococcus. Patient awaiting to undergo OG today with cardiology following and is currently NPO. Hemoglobin is stable at 8.1 with no active bleeding noted, white count remains within normal limits at 4.97, sodium is 140 with a potassium of 3.6 and creatinine is 0.5. Will await official OG report and discuss further with findings regarding discharge planning as patient may likely need IV antibiotics on discharge. Patient currently has no insurance and apparently has been receiving unemployment which is delaying her receiving insurance. Per social work, patient is to contact [employer] regarding this. 10/21/2024 Patient is seen in follow-up today with no acute overnight issues noted. Patient to receive a PICC line as patient will require IV antibiotics outpatient. Social work currently working with the patient as she has no insurance but has not been receiving insurance as patient is receiving unemployment. Arrangements will need to be made prior to discharge for IV antibiotic therapy as patient was noted to have a positive presentation on OG. Recent repeat blood culture is negative and will continue current regimen. Patient is afebrile with no reports of chest pain or shortness of breath. Patient tolerating diet with occasional nausea and no vomiting noted. Patient has been up and walking although continues with some weakness. Encouraged to increase activity as tolerated and walking multiple times throughout the day 10/22/2024 Patient is seen in follow-up today has received a PICC line currently awaiting a call back from [employer] to be able to initiate insurance as patient currentl y has no insurance. Repeat blood cultures are negative although patient was positive for OG with vegetation on the aortic valve. Cardiology following and has consulted CT surgery for further possible aortic valve replacement. Patient is continued on antibiotics with infectious disease following and will continue. Patient will require cardiac catheterization prior to valve replacement and is undergoing further initial workup. Cardiology recommends negative blood cultures prior to proceeding with catheterization. Repeat blood cultures thus far negative for 4 days. Patient is afebrile with no reports of chest pain or shortness of breath. Patient reports has been up and walking although is significantly weak. Encouraged increased activity as tolerated including sitting up in the chair more frequently. 10/23/2024 Patient is seen in follow-up with multiple consultations following. Cardiology with no plans of OG at this time recommending continue with IV antibiotic therapy for 4 weeks and reevaluation to discuss repeat OG and/or cardiac catheterization to ensure if patient truly needs aortic valve surgery. CT surgery following is undergoing further surgical workup. Patient has received a PICC line and will require IV antibiotics on discharge currently awaiting unemployment office to close her case so she can receive Medicaid. Social work is working diligently with the patient on this. The jones of home care nursing and equipment along with medications is quite expensive and patient unable to afford. Patient reports she is awaiting a call from the unemployment office. Patient is afebrile with no reports of chest pain or shortness of breath. Patient tolerating diet and continues to have bowel movements. Occasional nausea with no vomiting at this time. 10/24/2024 Patient is seen in follow-up today reporting some mild increase shortness of breath. Patient is maintained on 2 L with oxygen saturations above 96%. Patient is continued on oral Lasix although may benefit from IV Lasix as patient does appear to be edematous. Will obtain a chest x-ray. Patient is maintained on IV antibiotics with infectious disease following and will continue with outpatient IV antibiotics. Social work is following and will follow-up with unemployment and Medicaid after Sunday as patient needs to verify there have been no documented unemployment claims to receive payment for the last 2 weeks. Encouraged increase activity as tolerated recommend elevating lower extremities while at rest. Patient's family brought her compression stockings and and recommend to continue at this time. 10/27/2024 Patient is seen in follow-up today continued on antibiotics with infectious disease following. Patient to continue on IV Lasix for now as there is significant lower extremity swelling noted. Patient did have compression stockings on although was removed and patient is lower extremity dependent while sitting up in the chair. Encouraged elevating while at rest and continued compression stocking use. Patient has received paperwork regarding no documented claims on unemployment to provide to the Medicaid to receive insurance. This is pending and will need to determine if insurance has been activated to ensure safe discharge planning. Social work is following and will follow daily with Medicaid sales and marketing representative and also to arrange for outpatient IV antibiotic therapy. 10/28/2024 Patient is seen in follow-up today maintained on antibiotics and swelling of the lower extremities is slightly improved we will continue with IV Lasix and follow-up on repeat labs. Replace electrolytes per protocol. Patient reports is tolerating diet with small frequent meals and no nausea or vomiting noted. Patient does have a PICC line and is awaiting for insurance approval to initiate Medicaid so patient can discharge home on continued IV antibiotic therapy due to a vegetation on the aortic valve. Patient will need extensive outpatient follow-up with cardiology and CT surgery along with infectious disease. Social work is following and being updated daily. 10/29/2024 Patient is seen in follow-up today continues to sit in the chair and reporting her lower extremities are becoming more swollen again. Patient has compression stockings although is not been wearing them. Patient is maintained on daily Lasix and will continue to monitor kidney functions closely. No reports of gross recommend Scott wrapping from the toes up to the knees and elevating while at rest. Patient remains to be awaiting insurance determination with Medicaid to determine appropriate discharge planning including IV antibiotics and home care. 10/30/2024 Patient is seen in follow-up today with no acute overnight issues noted. Patient does have Scott wraps applied to bilateral lower extremities showing some improvements in lower extremity swelling and will continue on daily IV Lasix. Patient is tolerating well and kidney functions and electrolytes within normal limits. Patient continues to await Medicaid approval for discharge planning for continued IV antibiotics and home care in the outpatient setting. Patient is tolerating diet with no reports of nausea or vomiting. Patient is having bowel movements and denies diarrhea. Patient is continued on antibiotics with infectious disease following closely and discharge remains pending secondary to Medicaid. 10/31/2024 Patient is seen in follow-up today with infectious disease following. Patient is continued on IV antibiotics and has a PICC line in the left upper extremity. Patient is maintained on daily IV Lasix for continued lower extremity edema and normally takes Lasix daily. Patient to continue with Scott wrapping and elevating lower extremities while at rest. Patient continues to await insurance to be activated and Medicaid sales and marketing representative from [facility] is not working currently due to the holiday and will likely return on Sunday. Medicaid application remains pending at this time and will follow-up with social work on Sunday. Continue current regimen and will follow-up with repeat labs. Replace electrolytes per protocol. Encouraged increase activity as tolerated with frequently getting up and walking. Plan will be for home with home care with continued IV antibiotic therapy. 11.01.2024 Patient is evaluated today in follow up on the medical floor. Family at the bedside. No acute complaints. Awaiting to hear back about medicaid application from the [facility] sales and marketing representative. States she turned in all necessary paperwork and is hoping to hear Sunday for a decision. Continues on Iv antibiotics through PICC Line while inpatient. States the chest pain has subsided. Reporting no shortness of breath. WBC 6.09, hgb 8.1. 11/02/2024 Patient evaluated today in follow-up on the medical floor. Awaiting follow-up from a [facility] sales and marketing representative and social work regarding her Medicaid application and discharge planning tomorrow. She continues on IV antibiotics with a PICC line. She continues to report multiple episodes of loose stools felt to be due to the antibiotic. She continues on Questran twice daily. She is also on IV Lasix. 11/03/2024 Patient is seen in follow-up today continuing to await for Medicaid application with [facility] sales and marketing representative reporting it is still pending. Will follow-up daily on return phone calls to ensure safe discharge planning with IV antibiotics. Infectious disease following and patient is maintained on current regimen and will continue. Patient remains on IV Lasix and will transition to oral once discharged. Recommend continuing to elevate lower extremities and continued Scott wraps to bilateral lower extremities. Patient was tested for C. difficile and was negative and is being started on Imodium and Questran per ID recommendations. Continue to encourage increase activity as tolerated and will await Medicaid pending. Review of systems: Constitutional: No reports of fatigue, fever, or chills Cardiovascular: No reports of chest pain or palpitations Respiratory: reports of intermittent shortness of breath, denies cough GI: reports of occasional nausea, no reports of vomiting, reports improvement in abdominal discomfort and tenderness, reports having multiple loose bowel movements : No reports of dysuria or retention Neurovascular: reports of generalized weakness All medications have been reviewed PHYSICAL EXAMINATION: GENERAL: The patient is awake, alert and oriented x4, Well developed, elderly appearing, morbidly obese HEENT: Pupils are round and equally reacting to light. EOMI. no scleral icterus. No conjunctival pallor. Normocephalic, atraumatic. No pharyngeal erythema. No thyromegaly. CARDIOVASCULAR: S1 and S2 muffled PULMONARY: diminished breath sounds bilaterally with no wheezing or rhonchi noted. ABDOMEN: soft. Mildly tender on exam. Morbidly obese. non-distended, normoactive bowel sounds. No palpable organomegaly. MUSCULOSKELETAL: No joint swelling or deformity. EXTREMITIES: No cyanosis, clubbing, bilateral lower extremity edema noted NEUROLOGICAL: Gross neurological examination did not reveal any focal deficits. Diffuse weakness SKIN: No rashes. Assessment: Abdominal pain, likely secondary to acute ileus, resolved, surgery evaluated with no plans of intervention at this time recommending conservative management Diarrhea likely from antibiotic use, C. difficile was negative chest pain, ACS ruled out History of chronic achalasia History of recent urinary tract infection, treated outpatient. Bacteremia with culture showing Enterococcus and repeat cultures negative Echo reported with concerns of an echogenic area in the aortic valve consistent with vegetation, normal EF, status post OG 10/20/2024 with a 1.3 x 1.3 cm vegetation noticed on the ventricular aspect of the aortic valve suggestive of infective endocarditis, evidence of PFO noticed as well History of atrial fibrillation with previous history of ablation History of congestive heart failure, acute exacerbation Acute hypoxic respiratory failure, secondary to above History of DVT/PE Hypertension Hyperlipidemia Morbid obesity with a BMI of 42.3 GI prophylaxis DVT prophylaxis Full code Plan: Patient did receive a PICC line as patient will require outpatient IV antibiotics on discharge. Medicaid application remains pending per [employer] sales and marketing representative as well as social work. Will follow-up daily regarding this to ensure safe discharge planning. Patient was having multiple episodes of loose stool and C. difficile testing was negative, adding Imodium and Questran per infectious disease Patient will need to undergo cardiac catheterization after clearance of bacteremia and CT surgery was consulted currently undergoing possible aortic valve replacement workup. Patient will follow-up in the next 4 weeks for repeat GO and/or cardiac catheterization procedure per cardiology. Per cardiology there are no plans for repeat OG at this time recommending possible cardiac catheterization outpatient in the next 4 weeks once cultures remain negative, continued IV antibiotics, on discharge. Social work following as patient has no insurance currently and has been receiving unemployment. Patient has not made claims in the last 2 weeks and has not received any monies and has received a letter from unemployment reporting [employer] has not made any claims over the last 2 weeks and this was provided to Medicaid sales and marketing representative and awaiting to have Medicaid initiated to be able to afford IV antibiotics and home care on discharge. This remains pending and we will follow-up on daily. Social work is in contact with [employer] Medicaid remains undetermined at this time. Following up daily and remains pending at this time. This is delaying the discharge otherwise patient is medically stable and has been cleared for discharge. Patient lower extremity edema is improving and will continue with Scott wraps from the toes up to the knees and elevating while at rest. Continue on IV Lasix daily and will continue to monitor kidney functions and electrolytes closely. Will follow labs closely and replace electrolytes per protocol. Recommend continued fluid restrictions Encouraged increased activity as tolerated and getting up more frequently. The impression and plan of care has been dictated by Nan Zhang, Nurse Practitioner as directed. Dr. Aroldo MD I have performed a history and physical examination and medical decision making of this patient, discussed the same with the dictator, and agree with the dictators assessment and plan as written, documented as a scribe. Based on total visit time, I have performed more than 50% of this visit. Objective - Vital Signs Vital signs: Vital Signs Temp 98.2 F 11/03/24 01:57 Pulse 65 11/03/24 01:57 Resp 17 11/03/24 01:57 BP 130/64 11/03/24 01:57 Pulse Ox 91 L 11/03/24 01:57 FiO2 Intake & Output 11/02/24 11/03/24 11/03/24 18:59 06:59 18:59 Intake Total 118 Balance 118 Intake: Oral 118 Other: Voiding Method Toilet Toilet # Voids 3 2 # Bowel Movements 2 - Labs CBC & Chem 7: 11/03/24 05:22 11/03/24 05:22
--- NOTE | 2024-11-04 17:22 | P.PN ---
Subjective Progress Note Date: 11/03/24 Principal diagnosis: Reason for follow-up is Enterococcus faecalis bacteremia Patient is a 59-year-old female with a past medical history significant for hypertension hyperlipidemia osteoarthritis DVT atrial fibrillation recently treated in the outpatient setting from urgent care with the Bactrim DS for UTI presenting to [facility] subsequently with persistent symptoms she has been complaining of lower abdominal pain as well as shortness of breath, negative UA but blood cultures came back positive Enterococcus faecalis CT abdominal pelvis no acute intra-abdominal pathology. 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 On today's evaluation that is 11/03/2024, patient has been afebrile, patient is breathing comfortably and is currently on room air, patient denies having any chest pain and cough, patient denies nausea vomiting or abdominal pain still having diarrhea Patient white count is 5.98, creatinine 0.5 stool for C. difficile negative Objective - Vital Signs Vital signs: Vital Signs Temp 97.8 F 11/03/24 07:22 Pulse 65 11/03/24 07:22 Resp 17 11/03/24 07:22 BP 135/56 11/03/24 07:22 Pulse Ox 95 11/03/24 07:22 FiO2 Intake & Output 11/02/24 11/03/24 11/03/24 18:59 06:59 18:59 Intake Total 118 250 Balance 118 250 Intake: Oral 118 250 Other: Voiding Method Toilet Toilet Toilet # Voids 3 2 # Bowel Movements 2 - Exam GENERAL DESCRIPTION: Middle-age female lying in bed in no distress RESPIRATORY SYSTEM: Unlabored breathing , decreased breath sounds at bases HEART: S1 S2 regular rate and rhythm , ABDOMEN: Soft , no tenderness EXTREMITIES: No edema feet - Labs CBC & Chem 7: 11/03/24 05:22 11/03/24 05:22 Labs: Abnormal Lab Results - Last 24 Hours (Table) 11/03/24 11/03/24 Range/Units 05:22 05:22 RBC 2.97 L (4.10-5.20) X 10*6/uL Hgb 8.0 L (12.0-15.0) g/dL Hct 28.0 L (37.2-46.3) % MCH 26.9 L (27.0-32.0) pg MCHC 28.6 L (32.0-37.0) g/dL RDW 19.9 H (11.5-14.5) % Immature Gran # 0.08 H (0.00-0.04) X 10*3/uL Creatinine 0.5 L (0.6-1.5) mg/dL BUN/Creatinine Ratio 30.00 H (12.00-20.00) Ratio Glucose 116 H (70-110) mg/dL Assessment and Plan (1) Abdominal pain Current Visit: Yes Status: Acute Code(s): R10.9 - UNSPECIFIED ABDOMINAL PAIN SNOMED Code(s): 03821566 (2) Bacteremia Current Visit: Yes Status: Acute Code(s): R78.81 - BACTEREMIA SNOMED Code(s): 5471342 (3) Enterococcus faecalis infection Current Visit: Yes Status: Acute Code(s): A49.8 - OTHER BACTERIAL INFECTIONS OF UNSPECIFIED SITE SNOMED Code(s): 888876625 (4) Diarrhea Current Visit: Yes Status: Acute Code(s): R19.7 - DIARRHEA, UNSPECIFIED SNOMED Code(s): 20151215 Plan: 1patient presented to hospital with lower abdominal pain to have urinary symptoms recently completed course of Bactrim DS for UTI patient did have a neg ative UA more likely indicating adequate treatment of underlying UTI she has been complaining some abdominal pain however the patient did have a CT abdominal pelvis that has been negative for any acute process 2patient did have a positive blood culture Enterococcus faecalis which is usually of urinary or GI source however patient did have a negative UA CT abdominal pelvis done without contrast did not show acute intra-abdominal pathology, unfortunately CT abdominal pelvis was done again without oral and IV contrast and still waiting for echocardiogram report to be available as of 10/16/2024 3patient echocardiogram completed and reported as possible vegetation to the aortic valve cardiology plan is status post OG completed 10/20/2024 with evidence of aortic valve vegetation but no abscess CT surgery has been consulted following the patient closely apparently plan is for no surgery at this point as per discussion with the admitting team 4patient seem to have persistent problem with the diarrhea stool for C. difficile has been negative Imodium has been added continue with the Questran and the patient will be continued on ampicillin and Rocephin for her endocarditis Dictation was produced using [employer] dictation software. please excuse any grammatical, word or spelling errors. Time with Patient: Less than 30
--- NOTE | 2024-11-04 17:23 | P.PN ---
Subjective Progress Note Date: 11/04/24 Principal diagnosis: Reason for follow-up is Enterococcus faecalis bacteremia Patient is a 59-year-old female with a past medical history significant for hypertension hyperlipidemia osteoarthritis DVT atrial fibrillation recently treated in the outpatient setting from urgent care with the Bactrim JOSE for UTI presenting to [facility] ER subsequently with persistent symptoms she has been complaining of lower abdominal pain as well as shortness of breath, negative UA but blood cultures came back positive Enterococcus faecalis CT abdominal pelvis no acute intra-abdominal pathology. 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 On today's evaluation that is 11/04/2024, Patient is afebrile this morning patient denies having any chest pain shortness of breath or cough, the patient is currently on room air, patient denies any abdominal pain mentioned that he has slightly decreased. No new lab obtained today Objective - Vital Signs Vital signs: Vital Signs Temp 97.6 F 11/04/24 07:12 Pulse 66 11/04/24 07:12 Resp 17 11/04/24 07:12 BP 155/56 11/04/24 07:12 Pulse Ox 98 11/04/24 07:12 FiO2 Intake & Output 11/03/24 11/04/24 11/04/24 18:59 06:59 18:59 Intake Total 250 300 240 Balance 250 300 240 Intake: Oral 250 300 240 Other: Voiding Method Toilet Toilet Bedside Commode # Voids 1 1 - Exam GENERAL DESCRIPTION: Middle-age female lying in bed in no distress RESPIRATORY SYSTEM: Unlabored breathing , decreased breath sounds at bases HEART: S1 S2 regular rate and rhythm , ABDOMEN: Soft , no tenderness EXTREMITIES: No edema feet - Labs CBC & Chem 7: 11/03/24 05:22 11/03/24 05:22 Assessment and Plan (1) Abdominal pain Current Visit: Yes Status: Acute Code(s): R10.9 - UNSPECIFIED ABDOMINAL PAIN SNOMED Code(s): 60432794 (2) Bacteremia Current Visit: Yes Status: Acute Code(s): R78.81 - BACTEREMIA SNOMED Code(s): 2907838 (3) Enterococcus faecalis infection Current Visit: Yes Status: Acute Code(s): A49.8 - OTHER BACTERIAL INFECTIONS OF UNSPECIFIED SITE SNOMED Code(s): 194821619 (4) Diarrhea Current Visit: Yes Status: Acute Code(s): R19.7 - DIARRHEA, UNSPECIFIED SNOMED Code(s): 48241703 Plan: 1patient presented to hospital with lower abdominal pain to have urinary symptoms recently completed course of Bactrim DS for UTI patient did have a negative UA more likely indicating adequate treatment of underlying UTI she has been complaining some abdominal pain however the patient did have a CT abdominal pelvis that has been negative for any acute process 2patient did have a positive blood culture Enterococcus faecalis which is usually of urinary or GI source however patient did have a negative UA CT abdo ricardo pelvis done without contrast did not show acute intra-abdominal pathology, unfortunately CT abdominal pelvis was done again without oral and IV contrast and still waiting for echocardiogram report to be available as of 10/16/2024 3patient echocardiogram completed and reported as possible vegetation to the aortic valve cardiology plan is status post OG completed 10/20/2024 with evidence of aortic valve vegetation but no abscess CT surgery has been consulted following the patient closely apparently plan is for no surgery at this point as per discussion with the admitting team 4patient seem to have persistent problem with the diarrhea stool for C. difficile has been negative Imodium has been added continue with the Questran and see clinical response 5the patient will be continued on ampicillin and Rocephin for her endocarditis to finish 6-week course of therapy Dictation was produced using [employer] dictation software. please excuse any grammatical, word or spelling errors. Time with Patient: Less than 30
--- NOTE | 2024-11-05 04:17 | P.PN ---
Subjective Progress Note Date: 11/04/24 This is a pleasant 59-year-old female who was recently admitted with abdominal pain noted to have a dilated esophagus with ingested contents and achalasia. Patient reports she followed with GI in the outpatient setting many years ago and was told there is not much that can be done to correct this. Patient continues with abdominal pain with general surgery following with no plans of surgical intervention and no endoscopy at this time. Patient did have a blood culture that was positive and growing Enterococcus with infectious disease following. Await repeat cultures to determine clearance of bacteremia. Encouraged increase activity as tolerated with sitting up more frequently in the chair. 10/16/2024 Patient is seen in follow-up today with no acute overnight issues. Patient continues to report some abdominal pain although feels she reports it is gas pains. Patient awaiting repeat cultures and is maintained on ampicillin with infectious disease following as initial blood culture showing Enterococcus faecalis. Awaiting repeat blood cultures to determine bacteremia clearance. General surgery has evaluated the patient with no surgical interventions planned recommending to continue with bowel regimen especially on discharge. 10/17/2024 Patient is seen in follow-up today continues to report abdominal pain. Echo report was resulted and there is some echogenic area noted on the aortic valve consistent with vegetation with mild to moderate aortic regurgitation and moderate pulmonary hypertension along with moderate mitral and mild tricuspid regurgitation noted. Patient previous blood cultures were positive showing Enterococcus and repeat cultures thus far have been negative. Will consult cardiology to discuss the need of possible OG for further evaluation. Patient to continue on IV antibiotics with infectious disease following at this time. Continue current as well as bowel regimen. Patient is afebrile with no reported chest pain or shortness of breath. Encouraging increasing activity as tolerated and getting up more frequently. 10/18/2024 Patient seen in follow-up today with no acute overnight issues noted. Patient to be evaluated by cardiology for possible OG and to further evaluate echo as patient is noted to have positive blood cultures and concerns of vegetation. Patient is continued on antibiotics with infectious disease following and repeat blood cultures remain negative thus far. Patient is afebrile and white count is normal with no reported chest pain or shortness of breath. Encouraged increase activity as tolerated. Will follow-up on repeat labs. 10/19/2024 Patient is seen in follow-up today reporting some nausea and will add Zofran and continue with Protonix. Patient was evaluated by cardiology awaiting to obtain records from previous stress test and/or cardiac catheterization as patient recently underwent ablation in the outpatient setting also on previous admissions. Patient tentatively plan for OG on Sunday with cardiology. Repeat cultures remain negative thus far with infectious disease following maintained on current antibiotics and will continue. Encouraged increased activity as tolerated and will follow-up on repeat labs. To inquire with case management/social work on Sunday regarding treatment plan moving forward and if patient is any further on Medicaid application as patient currently has no insurance. 10/20/2024 Patient is seen and evaluated in follow-up with multiple consultations following including infectious disease as patient did have positive blood cultures with Enterococcus. Patient awaiting to undergo OG today with cardiology following and is currently NPO. Hemoglobin is stable at 8.1 with no active bleeding noted, white count remains within normal limits at 4.97, sodium is 140 with a potassium of 3.6 and creatinine is 0.5. Will await official OG report and discuss further with findings regarding discharge planning as patient may likely need IV antibiotics on discharge. Patient currently has no insurance and apparently has been receiving unemployment which is delaying her receiving insurance. Per social work, patient is to contact [employer] regarding this. 10/21/2024 Patient is seen in follow-up today with no acute overnight issues noted. Patient to receive a PICC line as patient will require IV antibiotics outpatient. Social work currently working with the patient as she has no insurance but has not been receiving insurance as patient is receiving unemployment. Arrangements will need to be made prior to discharge for IV antibiotic therapy as patient was noted to have a positive presentation on OG. Recent repeat blood culture is negative and will continue current regimen. Patient is afebrile with no reports of chest pain or shortness of breath. Patient tolerating diet with occasional nausea and no vomiting noted. Patient has been up and walking although continues with some weakness. Encouraged to increase activity as tolerated and walking multiple times throughout the day 10/22/2024 Patient is seen in follow-up today has received a PICC line currently awaiting a call back from [employer] to be able to initiate insurance as patient currentl y has no insurance. Repeat blood cultures are negative although patient was positive for OG with vegetation on the aortic valve. Cardiology following and has consulted CT surgery for further possible aortic valve replacement. Patient is continued on antibiotics with infectious disease following and will continue. Patient will require cardiac catheterization prior to valve replacement and is undergoing further initial workup. Cardiology recommends negative blood cultures prior to proceeding with catheterization. Repeat blood cultures thus far negative for 4 days. Patient is afebrile with no reports of chest pain or shortness of breath. Patient reports has been up and walking although is significantly weak. Encouraged increased activity as tolerated including sitting up in the chair more frequently. 10/23/2024 Patient is seen in follow-up with multiple consultations following. Cardiology with no plans of OG at this time recommending continue with IV antibiotic therapy for 4 weeks and reevaluation to discuss repeat OG and/or cardiac catheterization to ensure if patient truly needs aortic valve surgery. CT surgery following is undergoing further surgical workup. Patient has received a PICC line and will require IV antibiotics on discharge currently awaiting unemployment office to close her case so she can receive Medicaid. Social work is working diligently with the patient on this. The jones of home care nursing and equipment along with medications is quite expensive and patient unable to afford. Patient reports she is awaiting a call from the unemployment office. Patient is afebrile with no reports of chest pain or shortness of breath. Patient tolerating diet and continues to have bowel movements. Occasional nausea with no vomiting at this time. 10/24/2024 Patient is seen in follow-up today reporting some mild increase shortness of breath. Patient is maintained on 2 L with oxygen saturations above 96%. Patient is continued on oral Lasix although may benefit from IV Lasix as patient does appear to be edematous. Will obtain a chest x-ray. Patient is maintained on IV antibiotics with infectious disease following and will continue with outpatient IV antibiotics. Social work is following and will follow-up with unemployment and Medicaid after Sunday as patient needs to verify there have been no documented unemployment claims to receive payment for the last 2 weeks. Encouraged increase activity as tolerated recommend elevating lower extremities while at rest. Patient's family brought her compression stockings and and recommend to continue at this time. 10/27/2024 Patient is seen in follow-up today continued on antibiotics with infectious disease following. Patient to continue on IV Lasix for now as there is significant lower extremity swelling noted. Patient did have compression stockings on although was removed and patient is lower extremity dependent while sitting up in the chair. Encouraged elevating while at rest and continued compression stocking use. Patient has received paperwork regarding no documented claims on unemployment to provide to the Medicaid to receive insurance. This is pending and will need to determine if insurance has been activated to ensure safe discharge planning. Social work is following and will follow daily with Medicaid collections representative and also to arrange for outpatient IV antibiotic therapy. 10/28/2024 Patient is seen in follow-up today maintained on antibiotics and swelling of the lower extremities is slightly improved we will continue with IV Lasix and follow-up on repeat labs. Replace electrolytes per protocol. Patient reports is tolerating diet with small frequent meals and no nausea or vomiting noted. Patient does have a PICC line and is awaiting for insurance approval to initiate Medicaid so patient can discharge home on continued IV antibiotic therapy due to a vegetation on the aortic valve. Patient will need extensive outpatient follow-up with cardiology and CT surgery along with infectious disease. Social work is following and being updated daily. 10/29/2024 Patient is seen in follow-up today continues to sit in the chair and reporting her lower extremities are becoming more swollen again. Patient has compression stockings although is not been wearing them. Patient is maintained on daily Lasix and will continue to monitor kidney functions closely. No reports of gross recommend Scott wrapping from the toes up to the knees and elevating while at rest. Patient remains to be awaiting insurance determination with Medicaid to determine appropriate discharge planning including IV antibiotics and home care. 10/30/2024 Patient is seen in follow-up today with no acute overnight issues noted. Patient does have Scott wraps applied to bilateral lower extremities showing some improvements in lower extremity swelling and will continue on daily IV Lasix. Patient is tolerating well and kidney functions and electrolytes within normal limits. Patient continues to await Medicaid approval for discharge planning for continued IV antibiotics and home care in the outpatient setting. Patient is tolerating diet with no reports of nausea or vomiting. Patient is having bowel movements and denies diarrhea. Patient is continued on antibiotics with infectious disease following closely and discharge remains pending secondary to Medicaid. 10/31/2024 Patient is seen in follow-up today with infectious disease following. Patient is continued on IV antibiotics and has a PICC line in the left upper extremity. Patient is maintained on daily IV Lasix for continued lower extremity edema and normally takes Lasix daily. Patient to continue with Scott wrapping and elevating lower extremities while at rest. Patient continues to await insurance to be activated and Medicaid collections representative from [facility] is not working currently due to the holiday and will likely return on Sunday. Medicaid application remains pending at this time and will follow-up with social work on Sunday. Continue current regimen and will follow-up with repeat labs. Replace electrolytes per protocol. Encouraged increase activity as tolerated with frequently getting up and walking. Plan will be for home with home care with continued IV antibiotic therapy. 11.01.2024 Patient is evaluated today in follow up on the medical floor. Family at the bedside. No acute complaints. Awaiting to hear back about medicaid application from the [facility] collections representative. States she turned in all necessary paperwork and is hoping to hear Sunday for a decision. Continues on Iv antibiotics through PICC Line while inpatient. States the chest pain has subsided. Reporting no shortness of breath. WBC 6.09, hgb 8.1. 11/02/2024 Patient evaluated today in follow-up on the medical floor. Awaiting follow-up from a [facility] collections representative and social work regarding her Medicaid application and discharge planning tomorrow. She continues on IV antibiotics with a PICC line. She continues to report multiple episodes of loose stools felt to be due to the antibiotic. She continues on Questran twice daily. She is also on IV Lasix. 11/03/2024 Patient is seen in follow-up today continuing to await for Medicaid application with [facility] collections representative reporting it is still pending. Will follow-up daily on return phone calls to ensure safe discharge planning with IV antibiotics. Infectious disease following and patient is maintained on current regimen and will continue. Patient remains on IV Lasix and will transition to oral once discharged. Recommend continuing to elevate lower extremities and continued Scott wraps to bilateral lower extremities. Patient was tested for C. difficile and was negative and is being started on Imodium and Questran per ID recommendations. Continue to encourage increase activity as tolerated and will await Medicaid pending. 11/04/2024 Patient is seen in follow-up today with no acute overnight issues noted. Patient continues to await Medicaid determination which is currently pending. [facility] collections representative checking daily on the status with no updates as of yet. Patient is afebrile with no reports of chest pain or shortness of breath. Patient would like to go home and currently awaiting insurance for appropriate safe discharge planning as patient is with a PICC line and will be continued long-term antibiotics for the next few weeks due to bacteremia with infective endocarditis. Patient is afebrile reports of chest pain or shortness of breath. Patient has been tolerating diet with no reported nausea or vomiting. Review of systems: Constitutional: No reports of fatigue, fever, or chills Cardiovascular: No reports of chest pain or palpitations Respiratory: reports of intermittent shortness of breath, denies cough GI: reports of occasional nausea, no reports of vomiting, reports improvement in abdominal discomfort and tenderness, reports having bowel movements : No reports of dysuria or retention Neurovascular: reports of generalized weakness All medications have been reviewed PHYSICAL EXAMINATION: GENERAL: The patient is awake, alert and oriented x4, Well developed, elderly appearing, morbidly obese HEENT: Pupils are round and equally reacting to light. EOMI. no scleral icterus. No conjunctival pallor. Normocephalic, atraumatic. No pharyngeal erythema. No thyromegaly. CARDIOVASCULAR: S1 and S2 muffled PULMONARY: diminished breath sounds bilaterally with no wheezing or rhonchi noted. ABDOMEN: soft. non-tender on exam. Morbidly obese. non-distended, normoactive bowel sounds. No palpable organomegaly. MUSCULOSKELETAL: No joint swelling or deformity. EXTREMITIES: No cyanosis, clubbing, bilateral lower extremity edema noted, nonpitting NEUROLOGICAL: Gross neurological examination did not reveal any focal deficits. Diffuse weakness SKIN: No rashes. Assessment: Abdominal pain, likely secondary to acute ileus, resolved, surgery evaluated with no plans of intervention at this time recommending conservative management Diarrhea likely from antibiotic use, C. difficile was negative chest pain, ACS ruled out History of chronic achalasia History of recent urinary tract infection, treated outpatient. Bacteremia with culture showing Enterococcus and repeat cultures negative Echo reported with concerns of an echogenic area in the aortic valve consistent with vegetation, normal EF, status post OG 10/20/2024 with a 1.3 x 1.3 cm vegetation noticed on the ventricular aspect of the aortic valve suggestive of infective endocarditis, evidence of PFO noticed as well History of atrial fibrillation with previous history of ablation History of congestive heart failure, acute exacerbation Acute hypoxic respiratory failure, secondary to above History of DVT/PE Hypertension Hyperlipidemia Morbid obesity with a BMI of 42.3 GI prophylaxis DVT prophylaxis Full code Plan: Patient did receive a PICC line as patient will require outpatient IV antibiotics on discharge. Medicaid application remains pending per [employer] collections representative as well as social work. Will follow-up daily regarding this to ensure safe discharge planning. Patient was having multiple episodes of loose stool and C. difficile testing was negative, continue Imodium and Questran per infectious disease Patient will need to undergo cardiac catheterization after clearance of bacteremia and CT surgery was consulted currently undergoing possible aortic valve replacement workup. Patient will follow-up in the next 4 weeks for repeat OG and/or cardiac catheterization procedure per cardiology. Per cardiology there are no plans for repeat OG at this time recommending possible cardiac catheterization outpatient in the next 4 weeks once cultures remain negative, continued IV antibiotics, on discharge. Social work following as patient has no insurance currently and has been receiving unemployment. Patient has not made claims in the last 2 weeks and has not received any monies and has received a letter from [employer] reporting she has not made any claims over the last 2 weeks and this was provided to Medicaid collections representative and awaiting to have Medicaid initiated to be able to afford IV antibiotics and home care on discharge. This remains pending and we will follow-up on daily. Social work [facility] remains undetermined at this time. Following up daily and remains pending at this time. This is delaying the discharge otherwise patient is medically stable and has been cleared for discharge. Patient lower extremity edema is improving and will continue with Scott wraps from the toes up to the knees and elevating while at rest. Continue on IV Lasix daily and will continue to monitor kidney functions and electrolytes closely. Will follow labs closely and replace electrolytes per protocol. Recommend continued fluid restrictions Encouraged increased activity as tolerated and getting up more frequently. The impression and plan of care has been dictated by Nan Zhang, Nurse Practitioner as directed. Dr. Aroldo MD I have performed a history and physical examination and medical decision making of this patient, discussed the same with the dictator, and agree with the dictators assessment and plan as written, documented as a scribe. Based on total visit time, I have performed more than 50% of this visit. Objective - Vital Signs Vital signs: Vital Signs Temp 97.6 F 11/04/24 07:12 Pulse 66 11/04/24 07:12 Resp 17 11/04/24 07:12 BP 155/56 11/04/24 07:12 Pulse Ox 98 11/04/24 07:12 FiO2 Intake & Output 11/03/24 11/04/24 11/04/24 18:59 06:59 18:59 Intake Total 250 300 240 Balance 250 300 240 Intake: Oral 250 300 240 Other: Voiding Method Toilet Toilet Bedside Commode # Voids 1 1 - Labs CBC & Chem 7: 11/03/24 05:22 11/03/24 05:22
--- NOTE | 2024-11-06 05:22 | P.PN ---
Subjective Progress Note Date: 11/05/24 This is a pleasant 59-year-old female who was recently admitted with abdominal pain noted to have a dilated esophagus with ingested contents and achalasia. Patient reports she followed with GI in the outpatient setting many years ago and was told there is not much that can be done to correct this. Patient continues with abdominal pain with general surgery following with no plans of surgical intervention and no endoscopy at this time. Patient did have a blood culture that was positive and growing Enterococcus with infectious disease following. Await repeat cultures to determine clearance of bacteremia. Encouraged increase activity as tolerated with sitting up more frequently in the chair. 10/16/2024 Patient is seen in follow-up today with no acute overnight issues. Patient continues to report some abdominal pain although feels she reports it is gas pains. Patient awaiting repeat cultures and is maintained on ampicillin with infectious disease following as initial blood culture showing Enterococcus faecalis. Awaiting repeat blood cultures to determine bacteremia clearance. General surgery has evaluated the patient with no surgical interventions planned recommending to continue with bowel regimen especially on discharge. 10/17/2024 Patient is seen in follow-up today continues to report abdominal pain. Echo report was resulted and there is some echogenic area noted on the aortic valve consistent with vegetation with mild to moderate aortic regurgitation and moderate pulmonary hypertension along with moderate mitral and mild tricuspid regurgitation noted. Patient previous blood cultures were positive showing Enterococcus and repeat cultures thus far have been negative. Will consult cardiology to discuss the need of possible OG for further evaluation. Patient to continue on IV antibiotics with infectious disease following at this time. Continue current as well as bowel regimen. Patient is afebrile with no reported chest pain or shortness of breath. Encouraging increasing activity as tolerated and getting up more frequently. 10/18/2024 Patient seen in follow-up today with no acute overnight issues noted. Patient to be evaluated by cardiology for possible OG and to further evaluate echo as patient is noted to have positive blood cultures and concerns of vegetation. Patient is continued on antibiotics with infectious disease following and repeat blood cultures remain negative thus far. Patient is afebrile and white count is normal with no reported chest pain or shortness of breath. Encouraged increase activity as tolerated. Will follow-up on repeat labs. 10/19/2024 Patient is seen in follow-up today reporting some nausea and will add Zofran and continue with Protonix. Patient was evaluated by cardiology awaiting to obtain records from previous stress test and/or cardiac catheterization as patient recently underwent ablation in the outpatient setting also on previous admissions. Patient tentatively plan for OG on Sunday with cardiology. Repeat cultures remain negative thus far with infectious disease following maintained on current antibiotics and will continue. Encouraged increased activity as tolerated and will follow-up on repeat labs. To inquire with case management/social work on Sunday regarding treatment plan moving forward and if patient is any further on Medicaid application as patient currently has no insurance. 10/20/2024 Patient is seen and evaluated in follow-up with multiple consultations following including infectious disease as patient did have positive blood cultures with Enterococcus. Patient awaiting to undergo OG today with cardiology following and is currently NPO. Hemoglobin is stable at 8.1 with no active bleeding noted, white count remains within normal limits at 4.97, sodium is 140 with a potassium of 3.6 and creatinine is 0.5. Will await official OG report and discuss further with findings regarding discharge planning as patient may likely need IV antibiotics on discharge. Patient currently has no insurance and apparently has been receiving unemployment which is delaying her receiving insurance. Per social work, patient is to contact [employer] regarding this. 10/21/2024 Patient is seen in follow-up today with no acute overnight issues noted. Patient to receive a PICC line as patient will require IV antibiotics outpatient. Social work currently working with the patient as she has no insurance but has not been receiving insurance as patient is receiving unemployment. Arrangements will need to be made prior to discharge for IV antibiotic therapy as patient was noted to have a positive presentation on OG. Recent repeat blood culture is negative and will continue current regimen. Patient is afebrile with no reports of chest pain or shortness of breath. Patient tolerating diet with occasional nausea and no vomiting noted. Patient has been up and walking although continues with some weakness. Encouraged to increase activity as tolerated and walking multiple times throughout the day 10/22/2024 Patient is seen in follow-up today has received a PICC line currently awaiting a call back from [employer] to be able to initiate insurance as patient currentl y has no insurance. Repeat blood cultures are negative although patient was positive for OG with vegetation on the aortic valve. Cardiology following and has consulted CT surgery for further possible aortic valve replacement. Patient is continued on antibiotics with infectious disease following and will continue. Patient will require cardiac catheterization prior to valve replacement and is undergoing further initial workup. Cardiology recommends negative blood cultures prior to proceeding with catheterization. Repeat blood cultures thus far negative for 4 days. Patient is afebrile with no reports of chest pain or shortness of breath. Patient reports has been up and walking although is significantly weak. Encouraged increased activity as tolerated including sitting up in the chair more frequently. 10/23/2024 Patient is seen in follow-up with multiple consultations following. Cardiology with no plans of OG at this time recommending continue with IV antibiotic therapy for 4 weeks and reevaluation to discuss repeat OG and/or cardiac catheterization to ensure if patient truly needs aortic valve surgery. CT surgery following is undergoing further surgical workup. Patient has received a PICC line and will require IV antibiotics on discharge currently awaiting unemployment office to close her case so she can receive Medicaid. Social work is working diligently with the patient on this. The jones of home care nursing and equipment along with medications is quite expensive and patient unable to afford. Patient reports she is awaiting a call from the unemployment office. Patient is afebrile with no reports of chest pain or shortness of breath. Patient tolerating diet and continues to have bowel movements. Occasional nausea with no vomiting at this time. 10/24/2024 Patient is seen in follow-up today reporting some mild increase shortness of breath. Patient is maintained on 2 L with oxygen saturations above 96%. Patient is continued on oral Lasix although may benefit from IV Lasix as patient does appear to be edematous. Will obtain a chest x-ray. Patient is maintained on IV antibiotics with infectious disease following and will continue with outpatient IV antibiotics. Social work is following and will follow-up with unemployment and Medicaid after Sunday as patient needs to verify there have been no documented unemployment claims to receive payment for the last 2 weeks. Encouraged increase activity as tolerated recommend elevating lower extremities while at rest. Patient's family brought her compression stockings and and recommend to continue at this time. 10/27/2024 Patient is seen in follow-up today continued on antibiotics with infectious disease following. Patient to continue on IV Lasix for now as there is significant lower extremity swelling noted. Patient did have compression stockings on although was removed and patient is lower extremity dependent while sitting up in the chair. Encouraged elevating while at rest and continued compression stocking use. Patient has received paperwork regarding no documented claims on unemployment to provide to the Medicaid to receive insurance. This is pending and will need to determine if insurance has been activated to ensure safe discharge planning. Social work is following and will follow daily with Medicaid sales representative uniforms and also to arrange for outpatient IV antibiotic therapy. 10/28/2024 Patient is seen in follow-up today maintained on antibiotics and swelling of the lower extremities is slightly improved we will continue with IV Lasix and follow-up on repeat labs. Replace electrolytes per protocol. Patient reports is tolerating diet with small frequent meals and no nausea or vomiting noted. Patient does have a PICC line and is awaiting for insurance approval to initiate Medicaid so patient can discharge home on continued IV antibiotic therapy due to a vegetation on the aortic valve. Patient will need extensive outpatient follow-up with cardiology and CT surgery along with infectious disease. Social work is following and being updated daily. 10/29/2024 Patient is seen in follow-up today continues to sit in the chair and reporting her lower extremities are becoming more swollen again. Patient has compression stockings although is not been wearing them. Patient is maintained on daily Lasix and will continue to monitor kidney functions closely. No reports of gross recommend Scott wrapping from the toes up to the knees and elevating while at rest. Patient remains to be awaiting insurance determination with Medicaid to determine appropriate discharge planning including IV antibiotics and home care. 10/30/2024 Patient is seen in follow-up today with no acute overnight issues noted. Patient does have Scott wraps applied to bilateral lower extremities showing some improvements in lower extremity swelling and will continue on daily IV Lasix. Patient is tolerating well and kidney functions and electrolytes within normal limits. Patient continues to await Medicaid approval for discharge planning for continued IV antibiotics and home care in the outpatient setting. Patient is tolerating diet with no reports of nausea or vomiting. Patient is having bowel movements and denies diarrhea. Patient is continued on antibiotics with infectious disease following closely and discharge remains pending secondary to Medicaid. 10/31/2024 Patient is seen in follow-up today with infectious disease following. Patient is continued on IV antibiotics and has a PICC line in the left upper extremity. Patient is maintained on daily IV Lasix for continued lower extremity edema and normally takes Lasix daily. Patient to continue with Scott wrapping and elevating lower extremities while at rest. Patient continues to await insurance to be activated and Medicaid sales representative uniforms from [facility] is not working currently due to the holiday and will likely return on Sunday. Medicaid application remains pending at this time and will follow-up with social work on Sunday. Continue current regimen and will follow-up with repeat labs. Replace electrolytes per protocol. Encouraged increase activity as tolerated with frequently getting up and walking. Plan will be for home with home care with continued IV antibiotic therapy. 11.01.2024 Patient is evaluated today in follow up on the medical floor. Family at the bedside. No acute complaints. Awaiting to hear back about medicaid application from the [facility] sales representative uniforms. States she turned in all necessary paperwork and is hoping to hear Sunday for a decision. Continues on Iv antibiotics through PICC Line while inpatient. States the chest pain has subsided. Reporting no shortness of breath. WBC 6.09, hgb 8.1. 11/02/2024 Patient evaluated today in follow-up on the medical floor. Awaiting follow-up from a [facility] sales representative uniforms and social work regarding her Medicaid application and discharge planning tomorrow. She continues on IV antibiotics with a PICC line. She continues to report multiple episodes of loose stools felt to be due to the antibiotic. She continues on Questran twice daily. She is also on IV Lasix. 11/03/2024 Patient is seen in follow-up today continuing to await for Medicaid application with [facility] sales representative uniforms reporting it is still pending. Will follow-up daily on return phone calls to ensure safe discharge planning with IV antibiotics. Infectious disease following and patient is maintained on current regimen and will continue. Patient remains on IV Lasix and will transition to oral once discharged. Recommend continuing to elevate lower extremities and continued Scott wraps to bilateral lower extremities. Patient was tested for C. difficile and was negative and is being started on Imodium and Questran per ID recommendations. Continue to encourage increase activity as tolerated and will await Medicaid pending. 11/04/2024 Patient is seen in follow-up today with no acute overnight issues noted. Patient continues to await Medicaid determination which is currently pending. [facility] sales representative uniforms checking daily on the status with no updates as of yet. Patient is afebrile with no reports of chest pain or shortness of breath. Patient would like to go home and currently awaiting insurance for appropriate safe discharge planning as patient is with a PICC line and will be continued long-term antibiotics for the next few weeks due to bacteremia with infective endocarditis. Patient is afebrile reports of chest pain or shortness of breath. Patient has been tolerating diet with no reported nausea or vomiting. 11/05/2024 Patient is seen in follow-up and continues with the PICC line and maintained on IV antibiotics with infectious disease following. Social work continues to follow-up daily and Medicaid application continues to remain pending and will check on daily for updates to ensure a safe discharge plan that patient is able to go home with IV antibiotics and continued home care. Patient is afebrile with no reports of chest pain or shortness of breath. Patient reports her diarrhea is improving and is somewhat more formed. Patient is continued on Questran and will continue. Repeat labs in the a.m. and monitor kidney functions and electrolytes Review of systems: Constitutional: No reports of fatigue, fever, or chills Cardiovascular: No reports of chest pain or palpitations Respiratory: reports of intermittent shortness of breath, denies cough GI: reports of occasional nausea, no reports of vomiting, reports improvement in abdominal discomfort and tenderness, reports having bowel movements : No reports of dysuria or retention Neurovascular: reports of generalized weakness All medications have been reviewed PHYSICAL EXAMINATION: GENERAL: The patient is awake, alert and oriented x4, Well developed, elderly appearing, morbidly obese HEENT: Pupils are round and equally reacting to light. EOMI. no scleral icterus. No conjunctival pallor. Normocephalic, atraumatic. No pharyngeal erythema. No thyromegaly. CARDIOVASCULAR: S1 and S2 muffled PULMONARY: diminished breath sounds bilaterally with no wheezing or rhonchi noted. ABDOMEN: soft. non-tender on exam. Morbidly obese. non-distended, normoactive bowel sounds. No palpable organomegaly. MUSCULOSKELETAL: No joint swelling or deformity. EXTREMITIES: No cyanosis, clubbing, bilateral lower extremity edema noted, nonpitting NEUROLOGICAL: Gross neurological examination did not reveal any focal deficits. Diffuse weakness SKIN: No rashes. Assessment: Abdominal pain, likely secondary to acute ileus, resolved, surgery evaluated with no plans of intervention at this time recommending conservative management Diarrhea likely from antibiotic use, C. difficile was negative chest pain, ACS ruled out History of chronic achalasia History of recent urinary tract infection, treated outpatient. Bacteremia with culture showing Enterococcus and repeat cultures negative Echo reported with concerns of an echogenic area in the aortic valve consistent with vegetation, normal EF, status post OG 10/20/2024 with a 1.3 x 1.3 cm vegetation noticed on the ventricular aspect of the aortic valve suggestive of infective endocarditis, evidence of PFO noticed as well History of atrial fibrillation with previous history of ablation History of congestive heart failure, acute exacerbation Acute hypoxic respiratory failure, secondary to above History of DVT/PE Hypertension Hyperlipidemia Morbid obesity with a BMI of 42.3 GI prophylaxis DVT prophylaxis Full code Plan: Patient did receive a PICC line as patient will require outpatient IV antibiotics on discharge. Medicaid application remains pending per [facility] sales representative uniforms as well as social work. Will follow-up daily regarding this to ensure safe discharge planning. Patient was having multiple episodes of loose stool and C. difficile testing was negative, continue Imodium and Questran per infectious disease Patient will need to undergo cardiac catheterization after clearance of bacteremia and CT surgery was consulted currently undergoing possible aortic valve replacement workup. Patient will follow-up in the next 4 weeks for repeat OG and/or cardiac catheterization procedure per cardiology. Per cardiology there are no plans for repeat OG at this time recommending possible cardiac catheterization outpatient in the next 4 weeks once cultures remain negative, continued IV antibiotics, on discharge. Social work following as patient has no insurance currently and has been receiving [employer]. Patient has not made claims in the last 2 weeks and has not received any monies and has received a letter from [employer] reporting she has not made any claims over the last 2 weeks and this was provided to Medicaid sales representative uniforms and awaiting to have Medicaid initiated to be able to afford IV antibiotics and home care on discharge. This remains pending and we will follow-up on daily. Social work is in contact with [facility] Medicaid remains undetermined at this time. Following up daily and remains pending at this time. This is delaying the discharge otherwise patient is medically stable and has been cleared for discharge. Patient lower extremity edema is improving and will continue with Scott wraps from the toes up to the knees and elevating while at rest. Continue on IV Lasix daily and will continue to monitor kidney functions and electrolytes closely. Will follow labs closely and replace electrolytes per protocol. Recommend continued fluid restrictions Encouraged increased activity as tolerated and getting up more frequently. The impression and plan of care has been dictated by Nan Zhang, Nurse Practitioner as directed. Dr. Aroldo MD I have performed a history and physical examination and medical decision making of this patient, discussed the same with the dictator, and agree with the dictators assessment and plan as written, documented as a scribe. Based on total visit time, I have performed more than 50% of this visit. Objective - Vital Signs Vital signs: Vital Signs Temp 97.8 F 11/06/24 03:07 Pulse 64 11/06/24 03:07 Resp 16 11/06/24 03:07 BP 175/70 11/06/24 03:07 Pulse Ox 95 11/06/24 03:07 FiO2 Intake & Output 11/05/24 11/05/24 11/06/24 06:59 18:59 06:59 Intake Total 150 240 Balance 150 240 Intake: Oral 150 240 Other: Voiding Method Toilet Toilet Bedside Commode Bedside Commode # Voids 2 1 3 - Labs CBC & Chem 7: 11/03/24 05:22 11/03/24 05:22
[2024-11-06 07:28] LABS: Basophils # (A) 0.05 10*3/uL (0.00-0.10); Basophils % (A) 0.7 %; Eosinophils # (A) 0.15 10*3/uL (0.04-0.35); Eosinophils % (A) 2.2 %; HCT 28.7 % (37.2-46.3); HGB 8.8 g/dL (12.0-15.0); Lymphocytes # (A) 1.63 10*3/uL (0.90-5.00); Lymphocytes % (A) 24.4 %; MCH 27.5 pg (27.0-32.0); MCHC 30.7 g/dL (32.0-37.0); MCV 89.7 fL (80.0-97.0); Monocytes # (A) 0.45 10*3/uL (0.20-1.00); Monocytes % (A) 6.7 %; Neutrophils # (A) 4.31 10*3/uL (1.80-7.70); Neutrophils % (A) 64.5 %; Platelet Count 263 10*3/uL (140-440); RBC 3.20 10*6/uL (4.10-5.20); RDW 19.6 % (11.5-14.5); WBC 6.69 10*3/uL (4.50-10.00)
[2024-11-06 07:35] LABS: African American GFR (CKD) >90 (>60 ml/min/1.73 sqM); Anion Gap 8 mmol/L; Blood Urea Nitrogen 19 mg/dL (7-17); Calcium 10.1 mg/dL (8.4-10.2); Carbon Dioxide 27 mmol/L (22-30); Chloride 109 mmol/L (98-107); Glucose 108 mg/dL (74-99); Non-African American GFR(CKD) >90 (>60 ml/min/1.73 sqM); Potassium 4.4 mmol/L (3.5-5.1); Sodium 144 mmol/L (137-145)
--- NOTE | 2024-11-06 08:31 | P.PN ---
Subjective Progress Note Date: 11/05/24 Principal diagnosis: Reason for follow-up is Enterococcus faecalis bacteremia Patient is a 59-year-old female with a past medical history significant for hypertension hyperlipidemia osteoarthritis DVT atrial fibrillation recently treated in the outpatient setting from urgent care with the [facility] for UTI presenting to [facility] subsequently with persistent symptoms she has been complaining of lower abdominal pain as well as shortness of breath, negative UA but blood cultures came back positive Enterococcus faecalis CT abdominal pelvis no acute intra-abdominal pathology. 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 On today's evaluation that is 11/05/2024,the patient denies any fever or any chills, patient is breathing comfortably on room air, the patient denies chest pain shortness of breath and no significant cough, patient denies abdominal pain, no nausea vomiting or any worsening diarrhea. Patient white count is 5.98, creatinine 0.5 Objective - Vital Signs Vital signs: Vital Signs Temp 98.3 F 11/05/24 07:07 Pulse 86 11/05/24 07:07 Resp 17 11/05/24 07:07 BP 178/51 11/05/24 07:07 Pulse Ox 93 L 11/05/24 07:07 FiO2 Intake & Output 11/04/24 11/05/24 11/05/24 18:59 06:59 18:59 Intake Total 1000 150 Balance 1000 150 Intake: Oral 1000 150 Other: Voiding Method Toilet Bedside Commode # Voids 2 # Bowel Movements 3 - Exam GENERAL DESCRIPTION: Middle-age female lying in bed in no distress RESPIRATORY SYSTEM: Unlabored breathing , decreased breath sounds at bases HEART: S1 S2 regular rate and rhythm , ABDOMEN: Soft , no tenderness EXTREMITIES: No edema feet - Labs CBC & Chem 7: 11/06/24 06:55 11/06/24 06:55 Assessment and Plan (1) Abdominal pain Current Visit: Yes Status: Acute Code(s): R10.9 - UNSPECIFIED ABDOMINAL PAIN SNOMED Code(s): 13445254 (2) Bacteremia Current Visit: Yes Status: Acute Code(s): R78.81 - BACTEREMIA SNOMED Code(s): 1990569 (3) Enterococcus faecalis infection Current Visit: Yes Status: Acute Code(s): A49.8 - OTHER BACTERIAL INFECTIONS OF UNSPECIFIED SITE SNOMED Code(s): 903978779 (4) Diarrhea Current Visit: Yes Status: Acute Code(s): R19.7 - DIARRHEA, UNSPECIFIED SNOMED Code(s): 66391478 Plan: 1patient presented to hospital with lower abdominal pain to have urinary symptoms recently completed course of Bactrim DS for UTI patient did have a negative UA more likely indicating adequate treatment of underlying UTI she has been complaining some abdominal pain however the patient did have a CT abdominal pelvis that has been negative for any acute process 2patient did have a positive blood culture Enterococcus faecalis which is usually of urinary or GI source however patient did have a negative UA CT abdominal pelvis done without contrast did not show acute intra-abdominal pathology, unfortunately CT abdominal pelvis was done again without oral and IV contrast and still waiting for echocardiogram report to be available as of 10/16/2024 3patient echocardiogram completed and reported as possible vegetation to the aortic valve cardiology plan is status post OG completed 10/20/2024 with evidence of aortic valve vegetation but no abscess CT surgery has been consulted following the patient closely apparently plan is for no surgery at this point as per discussion with the admitting team 4patient seem to have persistent problem with the diarrhea stool for C. difficile has been negative Imodium has been added continue with the Questran. 5the patient is currently being treated ampicillin and Rocephin for her endocarditis to finish 6-week course of therapy, currently waiting for outpatient IV antibiotic arrangement and insurance issues Dictation was produced using [employer] dictation software. please excuse any grammatical, word or spelling errors. Time with Patient: Less than 30
--- NOTE | 2024-11-06 14:51 | P.PN ---
Subjective Progress Note Date: 11/06/24 This is a pleasant 59-year-old female who was recently admitted with abdominal pain noted to have a dilated esophagus with ingested contents and achalasia. Patient reports she followed with GI in the outpatient setting many years ago and was told there is not much that can be done to correct this. Patient continues with abdominal pain with general surgery following with no plans of surgical intervention and no endoscopy at this time. Patient did have a blood culture that was positive and growing Enterococcus with infectious disease following. Await repeat cultures to determine clearance of bacteremia. Encouraged increase activity as tolerated with sitting up more frequently in the chair. 10/16/2024 Patient is seen in follow-up today with no acute overnight issues. Patient continues to report some abdominal pain although feels she reports it is gas pains. Patient awaiting repeat cultures and is maintained on ampicillin with infectious disease following as initial blood culture showing Enterococcus faecalis. Awaiting repeat blood cultures to determine bacteremia clearance. General surgery has evaluated the patient with no surgical interventions planned recommending to continue with bowel regimen especially on discharge. 10/17/2024 Patient is seen in follow-up today continues to report abdominal pain. Echo report was resulted and there is some echogenic area noted on the aortic valve consistent with vegetation with mild to moderate aortic regurgitation and moderate pulmonary hypertension along with moderate mitral and mild tricuspid regurgitation noted. Patient previous blood cultures were positive showing Enterococcus and repeat cultures thus far have been negative. Will consult cardiology to discuss the need of possible OG for further evaluation. Patient to continue on IV antibiotics with infectious disease following at this time. Continue current as well as bowel regimen. Patient is afebrile with no reported chest pain or shortness of breath. Encouraging increasing activity as tolerated and getting up more frequently. 10/18/2024 Patient seen in follow-up today with no acute overnight issues noted. Patient to be evaluated by cardiology for possible OG and to further evaluate echo as patient is noted to have positive blood cultures and concerns of vegetation. Patient is continued on antibiotics with infectious disease following and repeat blood cultures remain negative thus far. Patient is afebrile and white count is normal with no reported chest pain or shortness of breath. Encouraged increase activity as tolerated. Will follow-up on repeat labs. 10/19/2024 Patient is seen in follow-up today reporting some nausea and will add Zofran and continue with Protonix. Patient was evaluated by cardiology awaiting to obtain records from previous stress test and/or cardiac catheterization as patient recently underwent ablation in the outpatient setting also on previous admissions. Patient tentatively plan for OG on Sunday with cardiology. Repeat cultures remain negative thus far with infectious disease following maintained on current antibiotics and will continue. Encouraged increased activity as tolerated and will follow-up on repeat labs. To inquire with case management/social work on Sunday regarding treatment plan moving forward and if patient is any further on Medicaid application as patient currently has no insurance. 10/20/2024 Patient is seen and evaluated in follow-up with multiple consultations following including infectious disease as patient did have positive blood cultures with Enterococcus. Patient awaiting to undergo OG today with cardiology following and is currently NPO. Hemoglobin is stable at 8.1 with no active bleeding noted, white count remains within normal limits at 4.97, sodium is 140 with a potassium of 3.6 and creatinine is 0.5. Will await official OG report and discuss further with findings regarding discharge planning as patient may likely need IV antibiotics on discharge. Patient currently has no insurance and apparently has been receiving unemployment which is delaying her receiving insurance. Per social work, patient is to contact [employer] regarding this. 10/21/2024 Patient is seen in follow-up today with no acute overnight issues noted. Patient to receive a PICC line as patient will require IV antibiotics outpatient. Social work currently working with the patient as she has no insurance but has not been receiving insurance as patient is receiving unemployment. Arrangements will need to be made prior to discharge for IV antibiotic therapy as patient was noted to have a positive presentation on OG. Recent repeat blood culture is negative and will continue current regimen. Patient is afebrile with no reports of chest pain or shortness of breath. Patient tolerating diet with occasional nausea and no vomiting noted. Patient has been up and walking although continues with some weakness. Encouraged to increase activity as tolerated and walking multiple times throughout the day 10/22/2024 Patient is seen in follow-up today has received a PICC line currently awaiting a call back from [employer] to be able to initiate insurance as patient currentl y has no insurance. Repeat blood cultures are negative although patient was positive for OG with vegetation on the aortic valve. Cardiology following and has consulted CT surgery for further possible aortic valve replacement. Patient is continued on antibiotics with infectious disease following and will continue. Patient will require cardiac catheterization prior to valve replacement and is undergoing further initial workup. Cardiology recommends negative blood cultures prior to proceeding with catheterization. Repeat blood cultures thus far negative for 4 days. Patient is afebrile with no reports of chest pain or shortness of breath. Patient reports has been up and walking although is significantly weak. Encouraged increased activity as tolerated including sitting up in the chair more frequently. 10/23/2024 Patient is seen in follow-up with multiple consultations following. Cardiology with no plans of OG at this time recommending continue with IV antibiotic therapy for 4 weeks and reevaluation to discuss repeat OG and/or cardiac catheterization to ensure if patient truly needs aortic valve surgery. CT surgery following is undergoing further surgical workup. Patient has received a PICC line and will require IV antibiotics on discharge currently awaiting unemployment office to close her case so she can receive Medicaid. Social work is working diligently with the patient on this. The jones of home care nursing and equipment along with medications is quite expensive and patient unable to afford. Patient reports she is awaiting a call from the unemployment office. Patient is afebrile with no reports of chest pain or shortness of breath. Patient tolerating diet and continues to have bowel movements. Occasional nausea with no vomiting at this time. 10/24/2024 Patient is seen in follow-up today reporting some mild increase shortness of breath. Patient is maintained on 2 L with oxygen saturations above 96%. Patient is continued on oral Lasix although may benefit from IV Lasix as patient does appear to be edematous. Will obtain a chest x-ray. Patient is maintained on IV antibiotics with infectious disease following and will continue with outpatient IV antibiotics. Social work is following and will follow-up with unemployment and Medicaid after Sunday as patient needs to verify there have been no documented unemployment claims to receive payment for the last 2 weeks. Encouraged increase activity as tolerated recommend elevating lower extremities while at rest. Patient's family brought her compression stockings and and recommend to continue at this time. 10/27/2024 Patient is seen in follow-up today continued on antibiotics with infectious disease following. Patient to continue on IV Lasix for now as there is significant lower extremity swelling noted. Patient did have compression stockings on although was removed and patient is lower extremity dependent while sitting up in the chair. Encouraged elevating while at rest and continued compression stocking use. Patient has received paperwork regarding no documented claims on unemployment to provide to the Medicaid to receive insurance. This is pending and will need to determine if insurance has been activated to ensure safe discharge planning. Social work is following and will follow daily with Medicaid solar sales representative and also to arrange for outpatient IV antibiotic therapy. 10/28/2024 Patient is seen in follow-up today maintained on antibiotics and swelling of the lower extremities is slightly improved we will continue with IV Lasix and follow-up on repeat labs. Replace electrolytes per protocol. Patient reports is tolerating diet with small frequent meals and no nausea or vomiting noted. Patient does have a PICC line and is awaiting for insurance approval to initiate Medicaid so patient can discharge home on continued IV antibiotic therapy due to a vegetation on the aortic valve. Patient will need extensive outpatient follow-up with cardiology and CT surgery along with infectious disease. Social work is following and being updated daily. 10/29/2024 Patient is seen in follow-up today continues to sit in the chair and reporting her lower extremities are becoming more swollen again. Patient has compression stockings although is not been wearing them. Patient is maintained on daily Lasix and will continue to monitor kidney functions closely. No reports of gross recommend Scott wrapping from the toes up to the knees and elevating while at rest. Patient remains to be awaiting insurance determination with Medicaid to determine appropriate discharge planning including IV antibiotics and home care. 10/30/2024 Patient is seen in follow-up today with no acute overnight issues noted. Patient does have Scott wraps applied to bilateral lower extremities showing some improvements in lower extremity swelling and will continue on daily IV Lasix. Patient is tolerating well and kidney functions and electrolytes within normal limits. Patient continues to await Medicaid approval for discharge planning for continued IV antibiotics and home care in the outpatient setting. Patient is tolerating diet with no reports of nausea or vomiting. Patient is having bowel movements and denies diarrhea. Patient is continued on antibiotics with infectious disease following closely and discharge remains pending secondary to Medicaid. 10/31/2024 Patient is seen in follow-up today with infectious disease following. Patient is continued on IV antibiotics and has a PICC line in the left upper extremity. Patient is maintained on daily IV Lasix for continued lower extremity edema and normally takes Lasix daily. Patient to continue with Scott wrapping and elevating lower extremities while at rest. Patient continues to await insurance to be activated and Medicaid solar sales representative from [facility] is not working currently due to the holiday and will likely return on Sunday. Medicaid application remains pending at this time and will follow-up with social work on Sunday. Continue current regimen and will follow-up with repeat labs. Replace electrolytes per protocol. Encouraged increase activity as tolerated with frequently getting up and walking. Plan will be for home with home care with continued IV antibiotic therapy. 11.01.2024 Patient is evaluated today in follow up on the medical floor. Family at the bedside. No acute complaints. Awaiting to hear back about medicaid application from the [facility] solar sales representative. States she turned in all necessary paperwork and is hoping to hear Sunday for a decision. Continues on Iv antibiotics through PICC Line while inpatient. States the chest pain has subsided. Reporting no shortness of breath. WBC 6.09, hgb 8.1. 11/02/2024 Patient evaluated today in follow-up on the medical floor. Awaiting follow-up from a [facility] solar sales representative and social work regarding her Medicaid application and discharge planning tomorrow. She continues on IV antibiotics with a PICC line. She continues to report multiple episodes of loose stools felt to be due to the antibiotic. She continues on Questran twice daily. She is also on IV Lasix. 11/03/2024 Patient is seen in follow-up today continuing to await for Medicaid application with [facility] solar sales representative reporting it is still pending. Will follow-up daily on return phone calls to ensure safe discharge planning with IV antibiotics. Infectious disease following and patient is maintained on current regimen and will continue. Patient remains on IV Lasix and will transition to oral once discharged. Recommend continuing to elevate lower extremities and continued Scott wraps to bilateral lower extremities. Patient was tested for C. difficile and was negative and is being started on Imodium and Questran per ID recommendations. Continue to encourage increase activity as tolerated and will await Medicaid pending. 11/04/2024 Patient is seen in follow-up today with no acute overnight issues noted. Patient continues to await Medicaid determination which is currently pending. [facility] solar sales representative checking daily on the status with no updates as of yet. Patient is afebrile with no reports of chest pain or shortness of breath. Patient would like to go home and currently awaiting insurance for appropriate safe discharge planning as patient is with a PICC line and will be continued long-term antibiotics for the next few weeks due to bacteremia with infective endocarditis. Patient is afebrile reports of chest pain or shortness of breath. Patient has been tolerating diet with no reported nausea or vomiting. 11/05/2024 Patient is seen in follow-up and continues with the PICC line and maintained on IV antibiotics with infectious disease following. Social work continues to follow-up daily and Medicaid application continues to remain pending and will check on daily for updates to ensure a safe discharge plan that patient is able to go home with IV antibiotics and continued home care. Patient is afebrile with no reports of chest pain or shortness of breath. Patient reports her diarrhea is improving and is somewhat more formed. Patient is continued on Questran and will continue. Repeat labs in the a.m. and monitor kidney functions and electrolytes 710 Patient seen in follow up today with no acute overnight issues noted. Contin uing to await Medicaid application to be approved and verified through [facility] for patient to be able to discharge home with IV antibiotics and home care for infective endocarditis. Patient is maintained on IV antibiotics and will continue with infectious disease following. No reports of chest pain or shortness of breath. Patient is tolerating diet with no reported nausea or vomiting. Patient is having bowel movements that are more consistent and less loose. Review of systems: Constitutional: No reports of fatigue, fever, or chills Cardiovascular: No reports of chest pain or palpitations Respiratory: reports of intermittent shortness of breath, denies cough GI: reports of occasional nausea, no reports of vomiting, reports improvement in abdominal discomfort and tenderness, reports having bowel movements : No reports of dysuria or retention Neurovascular: reports of generalized weakness All medications have been reviewed PHYSICAL EXAMINATION: GENERAL: The patient is awake, alert and oriented x4, Well developed, elderly appearing, morbidly obese HEENT: Pupils are round and equally reacting to light. EOMI. no scleral icterus. No conjunctival pallor. Normocephalic, atraumatic. No pharyngeal erythema. No thyromegaly. CARDIOVASCULAR: S1 and S2 muffled PULMONARY: diminished breath sounds bilaterally with no wheezing or rhonchi noted. ABDOMEN: soft. non-tender on exam. Morbidly obese. non-distended, normoactive bowel sounds. No palpable organomegaly. MUSCULOSKELETAL: No joint swelling or deformity. EXTREMITIES: No cyanosis, clubbing, bilateral lower extremity edema noted, nonpitting NEUROLOGICAL: Gross neurological examination did not reveal any focal deficits. Diffuse weakness SKIN: No rashes. Assessment: Abdominal pain, likely secondary to acute ileus, resolved, surgery evaluated with no plans of intervention at this time recommending conservative management Diarrhea likely from antibiotic use, C. difficile was negative chest pain, ACS ruled out History of chronic achalasia History of recent urinary tract infection, treated outpatient. Bacteremia with culture showing Enterococcus and repeat cultures negative Echo reported with concerns of an echogenic area in the aortic valve consistent with vegetation, normal EF, status post OG 10/20/2024 with a 1.3 x 1.3 cm vegetation noticed on the ventricular aspect of the aortic valve suggestive of infective endocarditis, evidence of PFO noticed as well History of atrial fibrillation with previous history of ablation History of congestive heart failure, acute exacerbation Acute hypoxic respiratory failure, secondary to above History of DVT/PE Hypertension Hyperlipidemia Morbid obesity with a BMI of 42.3 GI prophylaxis DVT prophylaxis Full code Plan: Patient did receive a PICC line as patient will require outpatient IV antibiotics on discharge. Medicaid application remains pending per [facility] solar sales representative as well as social work. Will follow-up daily regarding this to ensure safe discharge planning. Patient was having multiple episodes of loose stool and C. difficile testing was negative, continue Imodium and Questran per infectious disease Patient will need to undergo cardiac catheterization after clearance of bacteremia and CT surgery was consulted currently undergoing possible aortic valve replacement workup. Patient will follow-up in the next 4 weeks for repeat OG and/or cardiac catheterization procedure per cardiology. Per cardiology there are no plans for repeat OG at this time recommending possible cardiac catheterization outpatient in the next 4 weeks once cultures remain negative, continued IV antibiotics, on discharge. Social work following as patient has no insurance currently and has been receiving unemployment. Patient has not made claims in the last 2 weeks and has not received any monies and has received a letter from [employer] reporting she has not made any claims over the last 2 weeks and this was provided to Medicaid solar sales representative and awaiting to have Medicaid initiated to be able to afford IV antibiotics and home care on discharge. This remains pending and we will follow-up on daily. Social work is in contact with [employer] and remains undetermined at this time. This is delaying the discharge otherwise patient is medically stable and has been cleared for discharge. Encouraged increased activity as tolerated and getting up more frequently. The impression and plan of care has been dictated by Nan Zhang, Nurse Practitioner as directed. Dr. Aroldo MD I have performed a history and physical examination and medical decision making of this patient, discussed the same with the dictator, and agree with the dictators assessment and plan as written, documented as a scribe. Based on total visit time, I have performed more than 50% of this visit. Objective - Vital Signs Vital signs: Vital Signs Temp 97.8 F 11/06/24 03:07 Pulse 64 11/06/24 03:07 Resp 16 11/06/24 03:07 BP 175/70 11/06/24 03:07 Pulse Ox 95 11/06/24 03:07 FiO2 Intake & Output 11/05/24 11/05/24 11/06/24 06:59 18:59 06:59 Intake Total 150 240 Balance 150 240 Intake: Oral 150 240 Other: Voiding Method Toilet Toilet Bedside Commode Bedside Commode # Voids 2 1 3 - Labs CBC & Chem 7: 11/06/24 06:55 11/06/24 06:55
--- NOTE | 2024-11-06 14:59 | P.PN ---
Subjective Progress Note Date: 11/06/24 Principal diagnosis: Reason for follow-up is Enterococcus faecalis bacteremia Patient is a 59-year-old female with a past medical history significant for hypertension hyperlipidemia osteoarthritis DVT atrial fibrillation recently treated in the outpatient setting from urgent care with the Bactrim JOSE for UTI presenting to [facility] ER subsequently with persistent symptoms she has been complaining of lower abdominal pain as well as shortness of breath, negative UA but blood cultures came back positive Enterococcus faecalis CT abdominal pelvis no acute intra-abdominal pathology. 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 On today's evaluation that is 11/06/2024,the patient remains to be afebrile, patient is on room air not requiring supplemental oxygen and denies any shortness of breath no chest pain or cough.Patient denies having any nausea or vomiting, no abdominal pain and diarrhea has slightly slowed on. Patient white count 6.69, creatinine 0.49 Objective - Vital Signs Vital signs: Vital Signs Temp 97.9 F 11/06/24 07:15 Pulse 77 11/06/24 07:15 Resp 17 11/06/24 07:15 BP 170/77 11/06/24 07:15 Pulse Ox 98 11/06/24 08:33 FiO2 Intake & Output 11/05/24 11/06/24 11/06/24 18:59 06:59 18:59 Intake Total 240 Balance 240 Intake: Oral 240 Other: Voiding Method Toilet Toilet Bedside Commode Bedside Commode # Voids 1 3 - Exam GENERAL DESCRIPTION: Middle-age female lying in bed in no distress RESPIRATORY SYSTEM: Unlabored breathing , decreased breath sounds at bases HEART: S1 S2 regular rate and rhythm , ABDOMEN: Soft , no tenderness EXTREMITIES: No edema feet - Labs CBC & Chem 7: 11/06/24 06:55 11/06/24 06:55 Labs: Abnormal Lab Results - Last 24 Hours (Table) 11/06/24 11/06/24 Range/Units 06:55 06:55 RBC 3.20 L (4.10-5.20) 10*6/uL Hgb 8.8 L (12.0-15.0) g/dL Hct 28.7 L (37.2-46.3) % MCHC 30.7 L (32.0-37.0) g/dL RDW 19.6 H (11.5-14.5) % Immature Gran # 0.10 H (0.00-0.04) 10*3/uL Chloride 109 H (98-107) mmol/L BUN 19 H (7-17) mg/dL Creatinine 0.49 L (0.52-1.04) mg/dL Glucose 108 H (74-99) mg/dL Assessment and Plan (1) Abdominal pain Current Visit: Yes Status: Acute Code(s): R10.9 - UNSPECIFIED ABDOMINAL PAIN SNOMED Code(s): 47681394 (2) Bacteremia Current Visit: Yes Status: Acute Code(s): R78.81 - BACTEREMIA SNOMED Code(s): 0150702 (3) Enterococcus faecalis infection Current Visit: Yes Status: Acute Code(s): A49.8 - OTHER BACTERIAL INFECTIONS OF UNSPECIFIED SITE SNOMED Code(s): 628334421 (4) Diarrhea Current Visit: Yes Status: Acute Code(s): R19.7 - DIARRHEA, UNSPECIFIED SNOMED Code(s): 20879357 Plan: 1patient presented to hospital with lower abdominal pain to have urinary sympt oms recently completed course of Bactrim DS for UTI patient did have a negative UA more likely indicating adequate treatment of underlying UTI she has been complaining some abdominal pain however the patient did have a CT abdominal pelvis that has been negative for any acute process 2patient did have a positive blood culture Enterococcus faecalis which is usually of urinary or GI source however patient did have a negative UA CT abdominal pelvis done without contrast did not show acute intra-abdominal pathology, unfortunately CT abdominal pelvis was done again without oral and IV contrast and still waiting for echocardiogram report to be available as of 10/16/2024 3patient echocardiogram completed and reported as possible vegetation to the aortic valve cardiology plan is status post OG completed 10/20/2024 with evidence of aortic valve vegetation but no abscess CT surgery has been consulted following the patient closely apparently plan is for no surgery at this point as per discussion with the admitting team 4patient seem to have persistent problem with the diarrhea stool for C. dif ficile has been negative Imodium has been added continue with the Questran mentions some improvement the symptoms to continue 5the patient to continue ampicillin and Rocephin for her endocarditis to finish 6-week course of therapy, still waiting for outpatient IV antibiotic arrangement and discharge Dictation was produced using [employer] dictation software. please excuse any grammatical, word or spelling errors. Time with Patient: Less than 30
--- NOTE | 2024-11-07 16:23 | P.PN ---
Subjective Progress Note Date: 11/07/24 Principal diagnosis: Reason for follow-up is Enterococcus faecalis bacteremia Patient is a 59-year-old female with a past medical history significant for hypertension hyperlipidemia osteoarthritis DVT atrial fibrillation recently treated in the outpatient setting from urgent care with the Kevinrisera GARCIA for UTI presenting to [facility] ER subsequently with persistent symptoms she has been complaining of lower abdominal pain as well as shortness of breath, negative UA but blood cultures came back positive Enterococcus faecalis CT abdominal pelvis no acute intra-abdominal pathology. 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 On today's evaluation that is 11/07/2024, the patient continues to be afebrile, the patient is on room air and breathing comfortably, the Pt denies having any chest pain or cough, the patient denies having any abdominal pain no vomiting and mention improvement in her diarrhea. No new lab has been obtained today Objective - Vital Signs Vital signs: Vital Signs Temp 97.6 F 11/07/24 14:00 Pulse 69 11/07/24 14:00 Resp 16 11/07/24 14:00 BP 159/60 11/07/24 14:00 Pulse Ox 100 11/07/24 14:00 FiO2 Intake & Output 11/06/24 11/07/24 11/07/24 18:59 06:59 18:59 Intake Total 500 420 Balance 500 420 Intake: Oral 500 420 Other: Voiding Method Toilet Bedside Commode Bedside Commode # Voids 2 2 - Exam GENERAL DESCRIPTION: Middle-age female lying in bed in no distress RESPIRATORY SYSTEM: Unlabored breathing , decreased breath sounds at bases HEART: S1 S2 regular rate and rhythm , ABDOMEN: Soft , no tenderness EXTREMITIES: No edema feet - Labs CBC & Chem 7: 11/06/24 06:55 11/06/24 06:55 Assessment and Plan (1) Abdominal pain Current Visit: Yes Status: Acute Code(s): R10.9 - UNSPECIFIED ABDOMINAL PAIN SNOMED Code(s): 12034093 (2) Bacteremia Current Visit: Yes Status: Acute Code(s): R78.81 - BACTEREMIA SNOMED Code(s): 3494507 (3) Enterococcus faecalis infection Current Visit: Yes Status: Acute Code(s): A49.8 - OTHER BACTERIAL INFECTIONS OF UNSPECIFIED SITE SNOMED Code(s): 853880605 (4) Diarrhea Current Visit: Yes Status: Acute Code(s): R19.7 - DIARRHEA, UNSPECIFIED SNOMED Code(s): 06608720 Plan: 1patient presented to hospital with lower abdominal pain to have urinary symptoms recently completed course of Bactrim DS for UTI patient did have a negative UA more likely indicating adequate treatment of underlying UTI she has been complaining some abdominal pain however the patient did have a CT abdominal pelvis that has been negative for any acute process 2patient did have a positive blood culture Enterococcus faecalis which is usually of urinary or GI source however patient did have a negative UA CT abdominal pelvis done without contrast did not show acute intra-abdominal pathology, unfortunately CT abdominal pelvis was done again without oral and IV contrast and still waiting for echocardiogram report to be available as of 10/16/2024 3patient echocardiogram completed and reported as possible vegetation to the aortic valve cardiology plan is status post OG completed 10/20/2024 with evidence of aortic valve vegetation but no abscess CT surgery has been consulted following the patient closely apparently plan is for no surgery at this point as per discussion with the admitting team 4patient did have improvement in her diarrhea to continue with the Questran and Imodium as needed and to continue with Rocephin and ampicillin to finish her surgery course of therapy for endocarditis Dictation was produced using [employer] dictation software. please excuse any grammatical, word or spelling errors. Time with Patient: Less than 30
--- NOTE | 2024-11-07 20:41 | P.PN ---
Subjective Progress Note Date: 11/07/24 This is a pleasant 59-year-old female who was recently admitted with abdominal pain noted to have a dilated esophagus with ingested contents and achalasia. Patient reports she followed with GI in the outpatient setting many years ago and was told there is not much that can be done to correct this. Patient continues with abdominal pain with general surgery following with no plans of surgical intervention and no endoscopy at this time. Patient did have a blood culture that was positive and growing Enterococcus with infectious disease following. Await repeat cultures to determine clearance of bacteremia. Encouraged increase activity as tolerated with sitting up more frequently in the chair. 10/16/2024 Patient is seen in follow-up today with no acute overnight issues. Patient continues to report some abdominal pain although feels she reports it is gas pains. Patient awaiting repeat cultures and is maintained on ampicillin with infectious disease following as initial blood culture showing Enterococcus faecalis. Awaiting repeat blood cultures to determine bacteremia clearance. General surgery has evaluated the patient with no surgical interventions planned recommending to continue with bowel regimen especially on discharge. 10/17/2024 Patient is seen in follow-up today continues to report abdominal pain. Echo report was resulted and there is some echogenic area noted on the aortic valve consistent with vegetation with mild to moderate aortic regurgitation and moderate pulmonary hypertension along with moderate mitral and mild tricuspid regurgitation noted. Patient previous blood cultures were positive showing Enterococcus and repeat cultures thus far have been negative. Will consult cardiology to discuss the need of possible OG for further evaluation. Patient to continue on IV antibiotics with infectious disease following at this time. Continue current as well as bowel regimen. Patient is afebrile with no reported chest pain or shortness of breath. Encouraging increasing activity as tolerated and getting up more frequently. 10/18/2024 Patient seen in follow-up today with no acute overnight issues noted. Patient to be evaluated by cardiology for possible OG and to further evaluate echo as patient is noted to have positive blood cultures and concerns of vegetation. Patient is continued on antibiotics with infectious disease following and repeat blood cultures remain negative thus far. Patient is afebrile and white count is normal with no reported chest pain or shortness of breath. Encouraged increase activity as tolerated. Will follow-up on repeat labs. 10/19/2024 Patient is seen in follow-up today reporting some nausea and will add Zofran and continue with Protonix. Patient was evaluated by cardiology awaiting to obtain records from previous stress test and/or cardiac catheterization as patient recently underwent ablation in the outpatient setting also on previous admissions. Patient tentatively plan for OG on Sunday with cardiology. Repeat cultures remain negative thus far with infectious disease following maintained on current antibiotics and will continue. Encouraged increased activity as tolerated and will follow-up on repeat labs. To inquire with case management/social work on Sunday regarding treatment plan moving forward and if patient is any further on Medicaid application as patient currently has no insurance. 10/20/2024 Patient is seen and evaluated in follow-up with multiple consultations following including infectious disease as patient did have positive blood cultures with Enterococcus. Patient awaiting to undergo OG today with cardiology following and is currently NPO. Hemoglobin is stable at 8.1 with no active bleeding noted, white count remains within normal limits at 4.97, sodium is 140 with a potassium of 3.6 and creatinine is 0.5. Will await official OG report and discuss further with findings regarding discharge planning as patient may likely need IV antibiotics on discharge. Patient currently has no insurance and apparently has been receiving unemployment which is delaying her receiving insurance. Per social work, patient is to contact [employer] regarding this. 10/21/2024 Patient is seen in follow-up today with no acute overnight issues noted. Patient to receive a PICC line as patient will require IV antibiotics outpatient. Social work currently working with the patient as she has no insurance but has not been receiving insurance as patient is receiving unemployment. Arrangements will need to be made prior to discharge for IV antibiotic therapy as patient was noted to have a positive presentation on OG. Recent repeat blood culture is negative and will continue current regimen. Patient is afebrile with no reports of chest pain or shortness of breath. Patient tolerating diet with occasional nausea and no vomiting noted. Patient has been up and walking although continues with some weakness. Encouraged to increase activity as tolerated and walking multiple times throughout the day 10/22/2024 Patient is seen in follow-up today has received a PICC line currently awaiting a call back from [employer] to be able to initiate insurance as patient currentl y has no insurance. Repeat blood cultures are negative although patient was positive for OG with vegetation on the aortic valve. Cardiology following and has consulted CT surgery for further possible aortic valve replacement. Patient is continued on antibiotics with infectious disease following and will continue. Patient will require cardiac catheterization prior to valve replacement and is undergoing further initial workup. Cardiology recommends negative blood cultures prior to proceeding with catheterization. Repeat blood cultures thus far negative for 4 days. Patient is afebrile with no reports of chest pain or shortness of breath. Patient reports has been up and walking although is significantly weak. Encouraged increased activity as tolerated including sitting up in the chair more frequently. 10/23/2024 Patient is seen in follow-up with multiple consultations following. Cardiology with no plans of OG at this time recommending continue with IV antibiotic therapy for 4 weeks and reevaluation to discuss repeat OG and/or cardiac catheterization to ensure if patient truly needs aortic valve surgery. CT surgery following is undergoing further surgical workup. Patient has received a PICC line and will require IV antibiotics on discharge currently awaiting unemployment office to close her case so she can receive Medicaid. Social work is working diligently with the patient on this. The jones of home care nursing and equipment along with medications is quite expensive and patient unable to afford. Patient reports she is awaiting a call from the unemployment office. Patient is afebrile with no reports of chest pain or shortness of breath. Patient tolerating diet and continues to have bowel movements. Occasional nausea with no vomiting at this time. 10/24/2024 Patient is seen in follow-up today reporting some mild increase shortness of breath. Patient is maintained on 2 L with oxygen saturations above 96%. Patient is continued on oral Lasix although may benefit from IV Lasix as patient does appear to be edematous. Will obtain a chest x-ray. Patient is maintained on IV antibiotics with infectious disease following and will continue with outpatient IV antibiotics. Social work is following and will follow-up with unemployment and Medicaid after Sunday as patient needs to verify there have been no documented unemployment claims to receive payment for the last 2 weeks. Encouraged increase activity as tolerated recommend elevating lower extremities while at rest. Patient's family brought her compression stockings and and recommend to continue at this time. 10/27/2024 Patient is seen in follow-up today continued on antibiotics with infectious disease following. Patient to continue on IV Lasix for now as there is significant lower extremity swelling noted. Patient did have compression stockings on although was removed and patient is lower extremity dependent while sitting up in the chair. Encouraged elevating while at rest and continued compression stocking use. Patient has received paperwork regarding no documented claims on unemployment to provide to the Medicaid to receive insurance. This is pending and will need to determine if insurance has been activated to ensure safe discharge planning. Social work is following and will follow daily with Medicaid public health representative and also to arrange for outpatient IV antibiotic therapy. 10/28/2024 Patient is seen in follow-up today maintained on antibiotics and swelling of the lower extremities is slightly improved we will continue with IV Lasix and follow-up on repeat labs. Replace electrolytes per protocol. Patient reports is tolerating diet with small frequent meals and no nausea or vomiting noted. Patient does have a PICC line and is awaiting for insurance approval to initiate Medicaid so patient can discharge home on continued IV antibiotic therapy due to a vegetation on the aortic valve. Patient will need extensive outpatient follow-up with cardiology and CT surgery along with infectious disease. Social work is following and being updated daily. 10/29/2024 Patient is seen in follow-up today continues to sit in the chair and reporting her lower extremities are becoming more swollen again. Patient has compression stockings although is not been wearing them. Patient is maintained on daily Lasix and will continue to monitor kidney functions closely. No reports of gross recommend Scott wrapping from the toes up to the knees and elevating while at rest. Patient remains to be awaiting insurance determination with Medicaid to determine appropriate discharge planning including IV antibiotics and home care. 10/30/2024 Patient is seen in follow-up today with no acute overnight issues noted. Patient does have Scott wraps applied to bilateral lower extremities showing some improvements in lower extremity swelling and will continue on daily IV Lasix. Patient is tolerating well and kidney functions and electrolytes within normal limits. Patient continues to await Medicaid approval for discharge planning for continued IV antibiotics and home care in the outpatient setting. Patient is tolerating diet with no reports of nausea or vomiting. Patient is having bowel movements and denies diarrhea. Patient is continued on antibiotics with infectious disease following closely and discharge remains pending secondary to Medicaid. 10/31/2024 Patient is seen in follow-up today with infectious disease following. Patient is continued on IV antibiotics and has a PICC line in the left upper extremity. Patient is maintained on daily IV Lasix for continued lower extremity edema and normally takes Lasix daily. Patient to continue with Scott wrapping and elevating lower extremities while at rest. Patient continues to await insurance to be activated and Medicaid public health representative from [facility] is not working currently due to the holiday and will likely return on Sunday. Medicaid application remains pending at this time and will follow-up with social work on Sunday. Continue current regimen and will follow-up with repeat labs. Replace electrolytes per protocol. Encouraged increase activity as tolerated with frequently getting up and walking. Plan will be for home with home care with continued IV antibiotic therapy. 11.01.2024 Patient is evaluated today in follow up on the medical floor. Family at the bedside. No acute complaints. Awaiting to hear back about medicaid application from the [facility] public health representative. States she turned in all necessary paperwork and is hoping to hear Sunday for a decision. Continues on Iv antibiotics through PICC Line while inpatient. States the chest pain has subsided. Reporting no shortness of breath. WBC 6.09, hgb 8.1. 11/02/2024 Patient evaluated today in follow-up on the medical floor. Awaiting follow-up from a [facility] public health representative and social work regarding her Medicaid application and discharge planning tomorrow. She continues on IV antibiotics with a PICC line. She continues to report multiple episodes of loose stools felt to be due to the antibiotic. She continues on Questran twice daily. She is also on IV Lasix. 11/03/2024 Patient is seen in follow-up today continuing to await for Medicaid application with the [facility] public health representative reporting it is still pending. Will follow-up daily on return phone calls to ensure safe discharge planning with IV antibiotics. Infectious disease following and patient is maintained on current regimen and will continue. Patient remains on IV Lasix and will transition to oral once discharged. Recommend continuing to elevate lower extremities and continued Scott wraps to bilateral lower extremities. Patient was tested for C. difficile and was negative and is being started on Imodium and Questran per ID recommendations. Continue to encourage increase activity as tolerated and will await Medicaid pending. 11/04/2024 Patient is seen in follow-up today with no acute overnight issues noted. Patient continues to await Medicaid determination which is currently pending. [facility] public health representative checking daily on the status with no updates as of yet. Patient is afebrile with no reports of chest pain or shortness of breath. Patient would like to go home and currently awaiting insurance for appropriate safe discharge planning as patient is with a PICC line and will be continued long-term antibiotics for the next few weeks due to bacteremia with infective endocarditis. Patient is afebrile reports of chest pain or shortness of breath. Patient has been tolerating diet with no reported nausea or vomiting. 11/05/2024 Patient is seen in follow-up and continues with the PICC line and maintained on IV antibiotics with infectious disease following. Social work continues to follow-up daily and Medicaid application continues to remain pending and will check on daily for updates to ensure a safe discharge plan that patient is able to go home with IV antibiotics and continued home care. Patient is afebrile with no reports of chest pain or shortness of breath. Patient reports her diarrhea is improving and is somewhat more formed. Patient is continued on Questran and will continue. Repeat labs in the a.m. and monitor kidney functions and electrolytes 11/06/2024 Patient seen in follow up today with no acute overnight issues noted. Continuing to await Medicaid application to be approved and verified through the [facility] for patient to be able to discharge home with IV antibiotics and home care for infective endocarditis. Patient is maintained on IV antibiotics and will continue with infectious disease following. No reports of chest pain or shortness of breath. Patient is tolerating diet with no reported nausea or vomiting. Patient is having bowel movements that are more consistent and less loose. 11/07/2024 Patient seen in follow-up today continues to be awaiting insurance to have a safe discharge plan with home care and IV antibiotics on discharge. Patient being followed by infectious disease and is maintained on antibiotics and will continue current regimen. Social work following daily and unfortunately due to the holiday Medicaid will not be able to be verified if it was started and we will follow-up on Sunday. Continue current supportive care. Encourage patient to increase activity as tolerated. Patient is medically stable for discharge just pending discharge planning due to insurance barrier Review of systems: Constitutional: No reports of fatigue, fever, or chills Cardiovascular: No reports of chest pain or palpitations Respiratory: reports of intermittent shortness of breath, denies cough GI: reports of occasional nausea, no reports of vomiting, reports improvement in abdominal discomfort and tenderness, reports having bowel movements : No reports of dysuria or retention Neurovascular: reports of generalized weakness All medications have been reviewed PHYSICAL EXAMINATION: GENERAL: The patient is awake, alert and oriented x4, Well developed, elderly appearing, morbidly obese HEENT: Pupils are round and equally reacting to light. EOMI. no scleral icterus. No conjunctival pallor. Normocephalic, atraumatic. No pharyngeal erythema. No thyromegaly. CARDIOVASCULAR: S1 and S2 muffled PULMONARY: diminished breath sounds bilaterally with no wheezing or rhonchi noted. ABDOMEN: soft. non-tender on exam. Morbidly obese. non-distended, normoactive bowel sounds. No palpable organomegaly. MUSCULOSKELETAL: No joint swelling or deformity. EXTREMITIES: No cyanosis, clubbing, bilateral lower extremity edema noted, nonpitting NEUROLOGICAL: Gross neurological examination did not reveal any focal deficits. Diffuse weakness SKIN: No rashes. Assessment: Abdominal pain, likely secondary to acute ileus, resolved, surgery evaluated with no plans of intervention at this time recommending conservative management Diarrhea likely from antibiotic use, C. difficile was negative chest pain, ACS ruled out History of chronic achalasia History of recent urinary tract infection, treated outpatient. Bacteremia with culture showing Enterococcus and repeat cultures negative Echo reported with concerns of an echogenic area in the aortic valve consistent with vegetation, normal EF, status post OG 10/20/2024 with a 1.3 x 1.3 cm vegetation noticed on the ventricular aspect of the aortic valve suggestive of infective endocarditis, evidence of PFO noticed as well History of atrial fibrillation with previous history of ablation History of congestive heart failure, acute exacerbation Acute hypoxic respiratory failure, secondary to above History of DVT/PE Hypertension Hyperlipidemia Morbid obesity with a BMI of 42.3 GI prophylaxis DVT prophylaxis Full code Plan: Patient did receive a PICC line as patient will require outpatient IV antibiotics on discharge. Medicaid application remains pending per the [facility] public health representative as well as social work. Will follow-up daily regarding this to ensure safe discharge planning. Patient was having multiple episodes of loose stool and C. difficile testing was negative, continue Imodium and Questran per infectious disease Patient will need to undergo cardiac catheterization after clearance of bacteremia and CT surgery was consulted currently undergoing possible aortic valve replacement workup. Patient will follow-up in the next 4 weeks for repeat OG and/or cardiac catheterization procedure per cardiology. Per cardiology there are no plans for repeat OG at this time recommending possible cardiac catheterization outpatient in the next 4 weeks once cultures remain negative, continued IV antibiotics, on discharge. Social work following as patient has no insurance currently and has been receiving [employer]. Patient has not made claims in the last 2 weeks and has not received any monies and has received a letter from [employer] reporting she has not made any claims over the last 2 weeks and this was provided to Medicaid public health representative and awaiting to have Medicaid initiated to be able to afford IV antibiotics and home care on discharge. This remains pending and we will follow-up on daily. Social work is in contact with [employer] and remains undetermined at this time. Due to the weekend, lynne does not work on weekends and will have to follow-up on Sunday. This is delaying the d ischarge otherwise patient is medically stable and has been cleared for discharge. Encouraged increased activity as tolerated and getting up more frequently. The impression and plan of care has been dictated by Nan Zhang, Nurse Practitioner as directed. Dr. Aroldo MD I have performed a history and physical examination and medical decision making of this patient, discussed the same with the dictator, and agree with the dictators assessment and plan as written, documented as a scribe. Based on total visit time, I have performed more than 50% of this visit. Objective - Vital Signs Vital signs: Vital Signs Temp 97.6 F 11/07/24 07:25 Pulse 67 11/07/24 07:25 Resp 16 11/07/24 07:25 BP 156/79 11/07/24 07:25 Pulse Ox 96 11/07/24 07:25 FiO2 Intake & Output 11/06/24 11/07/24 11/07/24 18:59 06:59 18:59 Intake Total 500 240 Balance 500 240 Intake: Oral 500 240 Other: Voiding Method Toilet Bedside Commode Bedside Commode # Voids 2 2 - Labs CBC & Chem 7: 11/06/24 06:55 11/06/24 06:55
--- NOTE | 2024-11-08 23:13 | P.PN ---
Subjective Progress Note Date: 11/08/24 This is a pleasant 59-year-old female who was recently admitted with abdominal pain noted to have a dilated esophagus with ingested contents and achalasia. Patient reports she followed with GI in the outpatient setting many years ago and was told there is not much that can be done to correct this. Patient continues with abdominal pain with general surgery following with no plans of surgical intervention and no endoscopy at this time. Patient did have a blood culture that was positive and growing Enterococcus with infectious disease following. Await repeat cultures to determine clearance of bacteremia. Encouraged increase activity as tolerated with sitting up more frequently in the chair. 10/16/2024 Patient is seen in follow-up today with no acute overnight issues. Patient continues to report some abdominal pain although feels she reports it is gas pains. Patient awaiting repeat cultures and is maintained on ampicillin with infectious disease following as initial blood culture showing Enterococcus faecalis. Awaiting repeat blood cultures to determine bacteremia clearance. General surgery has evaluated the patient with no surgical interventions planned recommending to continue with bowel regimen especially on discharge. 10/17/2024 Patient is seen in follow-up today continues to report abdominal pain. Echo report was resulted and there is some echogenic area noted on the aortic valve consistent with vegetation with mild to moderate aortic regurgitation and moderate pulmonary hypertension along with moderate mitral and mild tricuspid regurgitation noted. Patient previous blood cultures were positive showing Enterococcus and repeat cultures thus far have been negative. Will consult cardiology to discuss the need of possible OG for further evaluation. Patient to continue on IV antibiotics with infectious disease following at this time. Continue current as well as bowel regimen. Patient is afebrile with no reported chest pain or shortness of breath. Encouraging increasing activity as tolerated and getting up more frequently. 10/18/2024 Patient seen in follow-up today with no acute overnight issues noted. Patient to be evaluated by cardiology for possible OG and to further evaluate echo as patient is noted to have positive blood cultures and concerns of vegetation. Patient is continued on antibiotics with infectious disease following and repeat blood cultures remain negative thus far. Patient is afebrile and white count is normal with no reported chest pain or shortness of breath. Encouraged increase activity as tolerated. Will follow-up on repeat labs. 10/19/2024 Patient is seen in follow-up today reporting some nausea and will add Zofran and continue with Protonix. Patient was evaluated by cardiology awaiting to obtain records from previous stress test and/or cardiac catheterization as patient recently underwent ablation in the outpatient setting also on previous admissions. Patient tentatively plan for OG on Sunday with cardiology. Repeat cultures remain negative thus far with infectious disease following maintained on current antibiotics and will continue. Encouraged increased activity as tolerated and will follow-up on repeat labs. To inquire with case management/social work on Sunday regarding treatment plan moving forward and if patient is any further on Medicaid application as patient currently has no insurance. 10/20/2024 Patient is seen and evaluated in follow-up with multiple consultations following including infectious disease as patient did have positive blood cultures with Enterococcus. Patient awaiting to undergo OG today with cardiology following and is currently NPO. Hemoglobin is stable at 8.1 with no active bleeding noted, white count remains within normal limits at 4.97, sodium is 140 with a po tassium of 3.6 and creatinine is 0.5. Will await official OG report and discuss further with findings regarding discharge planning as patient may likely need IV antibiotics on discharge. Patient currently has no insurance and apparently has been receiving unemployment which is delaying her receiving insurance. Per social work, patient is to contact [employer] regarding this. 10/21/2024 Patient is seen in follow-up today with no acute overnight issues noted. Patient to receive a PICC line as patient will require IV antibiotics outpatient. Social work currently working with the patient as she has no insurance but has not been receiving insurance as patient is receiving unemployment. Arrangements will need to be made prior to discharge for IV antibiotic therapy as patient was noted to have a positive presentation on OG. Recent repeat blood culture is negative and will continue current regimen. Patient is afebrile with no reports of chest pain or shortness of breath. Patient tolerating diet with occasional nausea and no vomiting noted. Patient has been up and walking although continues with some weakness. Encouraged to increase activity as tolerated and walking multiple times throughout the day 10/22/2024 Patient is seen in follow-up today has received a PICC line currently awaiting a call back from [employer] to be able to initiate insurance as patient currently has no insurance. Repeat blood cultures are negative although patient was positive for OG with vegetation on the aortic valve. Cardiology following and has consulted CT surgery for further possible aortic valve replacement. Patient is continued on antibiotics with infectious disease following and will continue. Patient will require cardiac catheterization prior to valve replacement and is undergoing further initial workup. Cardiology recommends negative blood cultures prior to proceeding with catheterization. Repeat blood cultures thus far negative for 4 days. Patient is afebrile with no reports of chest pain or shortness of breath. Patient reports has been up and walking although is significantly weak. Encouraged increased activity as tolerated including sitting up in the chair more frequently. 10/23/2024 Patient is seen in follow-up with multiple consultations following. Cardiology with no plans of OG at this time recommending continue with IV antibiotic therapy for 4 weeks and reevaluation to discuss repeat OG and/or cardiac catheterization to ensure if patient truly needs aortic valve surgery. CT surgery following is undergoing further surgical workup. Patient has received a PICC line and will require IV antibiotics on discharge currently awaiting unemployment office to close her case so she can receive Medicaid. Social work is working diligently with the patient on this. The jones of home care nursing and equipment along with medications is quite expensive and patient unable to afford. Patient reports she is awaiting a call from the unemployment office. Patient is afebrile with no reports of chest pain or shortness of breath. Patient tolerating diet and continues to have bowel movements. Occasional nausea with no vomiting at this time. 10/24/2024 Patient is seen in follow-up today reporting some mild increase shortness of breath. Patient is maintained on 2 L with oxygen saturations above 96%. Patient is continued on oral Lasix although may benefit from IV Lasix as patient does appear to be edematous. Will obtain a chest x-ray. Patient is maintained on IV antibiotics with infectious disease following and will continue with outpatient IV antibiotics. Social work is following and will follow-up with unemployment and Medicaid after Sunday as patient needs to verify there have been no documented unemployment claims to receive payment for the last 2 weeks. Encouraged increase activity as tolerated recommend elevating lower extremities while at rest. Patient's family brought her compression stockings and and recommend to continue at this time. 10/27/2024 Patient is seen in follow-up today continued on antibiotics with infectious disease following. Patient to continue on IV Lasix for now as there is significant lower extremity swelling noted. Patient did have compression stockings on although was removed and patient is lower extremity dependent while sitting up in the chair. Encouraged elevating while at rest and continued compression stocking use. Patient has received paperwork regarding no documented claims on unemployment to provide to the Medicaid to receive insurance. This is pending and will need to determine if insurance has been activated to ensure safe discharge planning. Social work is following and will follow daily with Medicaid solar sales representative and also to arrange for outpatient IV antibiotic therapy. 10/28/2024 Patient is seen in follow-up today maintained on antibiotics and swelling of the lower extremities is slightly improved we will continue with IV Lasix and follow-up on repeat labs. Replace electrolytes per protocol. Patient reports is tolerating diet with small frequent meals and no nausea or vomiting noted. Patient does have a PICC line and is awaiting for insurance approval to initiate Medicaid so patient can discharge home on continued IV antibiotic therapy due to a vegetation on the aortic valve. Patient will need extensive outpatient follow-up with cardiology and CT surgery along with infectious disease. Social work is following and being updated daily. 10/29/2024 Patient is seen in follow-up today continues to sit in the chair and reporting her lower extremities are becoming more swollen again. Patient has compression stockings although is not been wearing them. Patient is maintained on daily Lasix and will continue to monitor kidney functions closely. No reports of gross recommend Scott wrapping from the toes up to the knees and elevating while at rest. Patient remains to be awaiting insurance determination with Medicaid to determine appropriate discharge planning including IV antibiotics and home care. 10/30/2024 Patient is seen in follow-up today with no acute overnight issues noted. Patient does have Scott wraps applied to bilateral lower extremities showing some improvements in lower extremity swelling and will continue on daily IV Lasix. Patient is tolerating well and kidney functions and electrolytes within normal limits. Patient continues to await Medicaid approval for discharge planning for continued IV antibiotics and home care in the outpatient setting. Patient is tolerating diet with no reports of nausea or vomiting. Patient is having bowel movements and denies diarrhea. Patient is continued on antibiotics with infectious disease following closely and discharge remains pending secondary to Medicaid. 10/31/2024 Patient is seen in follow-up today with infectious disease following. Patient is continued on IV antibiotics and has a PICC line in the left upper extremity. Patient is maintained on daily IV Lasix for continued lower extremity edema and normally takes Lasix daily. Patient to continue with Scott wrapping and elevating lower extremities while at rest. Patient continues to await insurance to be activated and Medicaid solar sales representative [facility] is not working currently due to the holiday and will likely return on Sunday. Medicaid application remains pending at this time and will follow-up with social work on Sunday. Continue current regimen and will follow-up with repeat labs. Replace electrolytes per p rotocol. Encouraged increase activity as tolerated with frequently getting up and walking. Plan will be for home with home care with continued IV antibiotic therapy. 11.01.2024 Patient is evaluated today in follow up on the medical floor. Family at the bedside. No acute complaints. Awaiting to hear back about medicaid application from the [facility] solar sales representative. States she turned in all necessary paperwork and is hoping to hear Sunday for a decision. Continues on Iv antibiotics through PICC Line while inpatient. States the chest pain has subsided. Reporting no shortness of breath. WBC 6.09, hgb 8.1. 11/02/2024 Patient evaluated today in follow-up on the medical floor. Awaiting follow-up from a [facility] solar sales representative and social work regarding her Medicaid application and discharge planning tomorrow. She continues on IV antibiotics with a PICC line. She continues to report multiple episodes of loose stools felt to be due to the antibiotic. She continues on Questran twice daily. She is also on IV Lasix. 11/03/2024 Patient is seen in follow-up today continuing to await for Medicaid application with [facility] solar sales representative reporting it is still pending. Will follow-up daily on return phone calls to ensure safe discharge planning with IV antibiotics. Infectious disease following and patient is maintained on current regimen and will continue. Patient remains on IV Lasix and will transition to oral once discharged. Recommend continuing to elevate lower extremities and con tinued Scott wraps to bilateral lower extremities. Patient was tested for C. difficile and was negative and is being started on Imodium and Questran per ID recommendations. Continue to encourage increase activity as tolerated and will await Medicaid pending. 11/04/2024 Patient is seen in follow-up today with no acute overnight issues noted. Patient continues to await Medicaid determination which is currently pending. [facility] solar sales representative checking daily on the status with no updates as of yet. Patient is afebrile with no reports of chest pain or shortness of breath. Patient would like to go home and currently awaiting insurance for appropriate safe discharge planning as patient is with a PICC line and will be continued long-term antibiotics for the next few weeks due to bacteremia with infective endocarditis. Patient is afebrile reports of chest pain or shortness of breath. Patient has been tolerating diet with no reported nausea or vomiting. 11/05/2024 Patient is seen in follow-up and continues with the PICC line and maintained on IV antibiotics with infectious disease following. Social work continues to follow-up daily and Medicaid application continues to remain pending and will check on daily for updates to ensure a safe discharge plan that patient is able to go home with IV antibiotics and continued home care. Patient is afebrile with no reports of chest pain or shortness of breath. Patient reports her diarrhea is improving and is somewhat more formed. Patient is continued on Questran and will continue. Repeat labs in the a.m. and monitor kidney functions and electrolytes 11/06/2024 Patient seen in follow up today with no acute overnight issues noted. Co ntinuing to await Medicaid application to be approved and verified through [employer] [facility] for patient to be able to discharge home with IV antibiotics and home care for infective endocarditis. Patient is maintained on IV antibiotics and will continue with infectious disease following. No reports of chest pain or shortness of breath. Patient is tolerating diet with no reported nausea or vomiting. Patient is having bowel movements that are more consistent and less loose. 11/07/2024 Patient seen in follow-up today continues to be awaiting insurance to have a safe discharge plan with home care and IV antibiotics on discharge. Patient being followed by infectious disease and is maintained on antibiotics and will continue current regimen. Social work following daily and unfortunately due to the holiday Medicaid will not be able to be verified if it was started and we will follow-up on Sunday. Continue current supportive care. Encourage patient to increase activity as tolerated. Patient is medically stable for discharge just pending discharge planning due to insurance barrier 11/08/2024 Patient evaluated today in follow up. Family at the bedside. Reports improvement of diarrhea and has been maintained on questran BID. Patient has been continued on IV antibiotics and continue to await insurance approval. Review of systems: Constitutional: No reports of fatigue, fever, or chills Cardiovascular: No reports of chest pain or palpitations Respiratory: reports of intermittent shortness of breath, denies cough GI: reports of occasional nausea, no reports of vomiting, reports improvement in abdominal discomfort and tenderness, reports having bowel movements : No reports of dysuria or retention Neurovascular: reports of generalized weakness All medications have been reviewed PHYSICAL EXAMINATION: GENERAL: The patient is awake, alert and oriented x4, Well developed, elderly appearing, morbidly obese HEENT: Pupils are round and equally reacting to light. EOMI. no scleral icterus. No conjunctival pallor. Normocephalic, atraumatic. No pharyngeal erythema. No thyromegaly. CARDIOVASCULAR: S1 and S2 muffled PULMONARY: diminished breath sounds bilaterally with no wheezing or rhonchi noted. ABDOMEN: soft. non-tender on exam. Morbidly obese. non-distended, normoactive bowel sounds. No palpable organomegaly. MUSCULOSKELETAL: No joint swelling or deformity. EXTREMITIES: No cyanosis, clubbing, bilateral lower extremity edema noted, nonpitting NEUROLOGICAL: Gross neurological examination did not reveal any focal deficits. Diffuse weakness SKIN: No rashes. Assessment: Abdominal pain, likely secondary to acute ileus, resolved, surgery evaluated with no plans of intervention at this time recommending conservative management Diarrhea likely from antibiotic use, C. difficile was negative chest pain, ACS ruled out History of chronic achalasia History of recent urinary tract infection, treated outpatient. Bacteremia with culture showing Enterococcus and repeat cultures negative Echo reported with concerns of an echogenic area in the aortic valve consistent with vegetation, normal EF, status post OG 10/20/2024 with a 1.3 x 1.3 cm vegetation noticed on the ventricular aspect of the aortic valve suggestive of infective endocarditis, evidence of PFO noticed as well History of atrial fibrillation with previous history of ablation History of congestive heart failure, acute exacerbation Acute hypoxic respiratory failure, secondary to above History of DVT/PE Hypertension Hyperlipidemia Morbid obesity with a BMI of 42.3 GI prophylaxis DVT prophylaxis Full code Plan: Patient did receive a PICC line as patient will require outpatient IV antibioti cs on discharge. Medicaid application remains pending per [employer] sales representative as well as social work. Will follow-up daily regarding this to ensure safe discharge planning. Patient was having multiple episodes of loose stool and C. difficile testing was negative, continue Imodium and Questran per infectious disease Patient will need to undergo cardiac catheterization after clearance of bacte remia and CT surgery was consulted currently undergoing possible aortic valve replacement workup. Patient will follow-up in the next 4 weeks for repeat OG and/or cardiac catheterization procedure per cardiology. Per cardiology there are no plans for repeat OG at this time recommending possible cardiac catheterization outpatient in the next 4 weeks once cultures remain negative, continued IV antibiotics, on discharge. Social work following as patient has no insurance currently and has been rec eiving unemployment. Patient has not made claims in the last 2 weeks and has not received any monies and has received a letter from unemployment reporting she has not made any claims over the last 2 weeks and this was provided to Medicaid solar sales representative and awaiting to have Medicaid initiated to be able to afford IV antibiotics and home care on discharge. This remains pending and we will follow-up on daily. Social work is in contact with [employer] and remains undetermined at this time. Due to the weekend, lynne does not work on weekends and will have to follow-up on Sunday. This is delaying the discharge otherwise patient is medically stable and has been cleared for discharge. Encouraged increased activity as tolerated and getting up more frequently. The impression and plan of care has been dictated by Justa Mora Nurse Practitioner as directed. Dr. Aroldo MD I have performed a history and physical examination and medical decision making of this patient, discussed the same with the dictator, and agree with the dictators assessment and plan as written, documented as a scribe. Based on total visit time, I have performed more than 50% of this visit. Objective - Vital Signs Vital signs: Vital Signs Temp 97.7 F 11/08/24 07:18 Pulse 69 11/08/24 07:18 Resp 16 11/08/24 07:18 BP 161/65 11/08/24 07:18 Pulse Ox 97 11/08/24 07:18 FiO2 Intake & Output 11/07/24 11/08/24 11/08/24 18:59 06:59 18:59 Intake Total 660 100 Balance 660 100 Intake: Oral 660 100 Other: Voiding Method Bedside Commode # Voids 1 1 - Labs CBC & Chem 7: 11/06/24 06:55 11/06/24 06:55 Assessment and Plan Time with Patient: Less than 30
--- NOTE | 2024-11-09 13:42 | P.PN ---
Subjective Progress Note Date: 11/09/24 This is a pleasant 59-year-old female who was recently admitted with abdominal pain noted to have a dilated esophagus with ingested contents and achalasia. Patient reports she followed with GI in the outpatient setting many years ago and was told there is not much that can be done to correct this. Patient continues with abdominal pain with general surgery following with no plans of surgical intervention and no endoscopy at this time. Patient did have a blood culture that was positive and growing Enterococcus with infectious disease following. Await repeat cultures to determine clearance of bacteremia. Encouraged increase activity as tolerated with sitting up more frequently in the chair. 10/16/2024 Patient is seen in follow-up today with no acute overnight issues. Patient continues to report some abdominal pain although feels she reports it is gas pains. Patient awaiting repeat cultures and is maintained on ampicillin with infectious disease following as initial blood culture showing Enterococcus faecalis. Awaiting repeat blood cultures to determine bacteremia clearance. General surgery has evaluated the patient with no surgical interventions planned recommending to continue with bowel regimen especially on discharge. 10/17/2024 Patient is seen in follow-up today continues to report abdominal pain. Echo report was resulted and there is some echogenic area noted on the aortic valve consistent with vegetation with mild to moderate aortic regurgitation and moderate pulmonary hypertension along with moderate mitral and mild tricuspid regurgitation noted. Patient previous blood cultures were positive showing Enterococcus and repeat cultures thus far have been negative. Will consult cardiology to discuss the need of possible OG for further evaluation. Patient to continue on IV antibiotics with infectious disease following at this time. Continue current as well as bowel regimen. Patient is afebrile with no reported chest pain or shortness of breath. Encouraging increasing activity as tolerated and getting up more frequently. 10/18/2024 Patient seen in follow-up today with no acute overnight issues noted. Patient to be evaluated by cardiology for possible OG and to further evaluate echo as patient is noted to have positive blood cultures and concerns of vegetation. Patient is continued on antibiotics with infectious disease following and repeat blood cultures remain negative thus far. Patient is afebrile and white count is normal with no reported chest pain or shortness of breath. Encouraged increase activity as tolerated. Will follow-up on repeat labs. 10/19/2024 Patient is seen in follow-up today reporting some nausea and will add Zofran and continue with Protonix. Patient was evaluated by cardiology awaiting to obtain records from previous stress test and/or cardiac catheterization as patient recently underwent ablation in the outpatient setting also on previous admissions. Patient tentatively plan for OG on Sunday with cardiology. Repeat cultures remain negative thus far with infectious disease following maintained on current antibiotics and will continue. Encouraged increased activity as tolerated and will follow-up on repeat labs. To inquire with case management/social work on Sunday regarding treatment plan moving forward and if patient is any further on Medicaid application as patient currently has no insurance. 10/20/2024 Patient is seen and evaluated in follow-up with multiple consultations following including infectious disease as patient did have positive blood cultures with Enterococcus. Patient awaiting to undergo OG today with cardiology following and is currently NPO. Hemoglobin is stable at 8.1 with no active bleeding noted, white count remains within normal limits at 4.97, sodium is 140 with a po tassium of 3.6 and creatinine is 0.5. Will await official OG report and discuss further with findings regarding discharge planning as patient may likely need IV antibiotics on discharge. Patient currently has no insurance and apparently has been receiving unemployment which is delaying her receiving insurance. Per social work, patient is to contact [facility] regarding this. 10/21/2024 Patient is seen in follow-up today with no acute overnight issues noted. Patient to receive a PICC line as patient will require IV antibiotics outpatient. Social work currently working with the patient as she has no insurance but has not been receiving insurance as patient is receiving unemployment. Arrangements will need to be made prior to discharge for IV antibiotic therapy as patient was noted to have a positive presentation on OG. Recent repeat blood culture is negative and will continue current regimen. Patient is afebrile with no reports of chest pain or shortness of breath. Patient tolerating diet with occasional nausea and no vomiting noted. Patient has been up and walking although continues with some weakness. Encouraged to increase activity as tolerated and walking multiple times throughout the day 10/22/2024 Patient is seen in follow-up today has received a PICC line currently awaiting a call back from [facility] to be able to initiate insurance as patient currently has no insurance. Repeat blood cultures are negative although patient was positive for OG with vegetation on the aortic valve. Cardiology following and has consulted CT surgery for further possible aortic valve replacement. Patient is continued on antibiotics with infectious disease following and will continue. Patient will require cardiac catheterization prior to valve replacement and is undergoing further initial workup. Cardiology recommends negative blood cultures prior to proceeding with catheterization. Repeat blood cultures thus far negative for 4 days. Patient is afebrile with no reports of chest pain or shortness of breath. Patient reports has been up and walking although is significantly weak. Encouraged increased activity as tolerated including sitting up in the chair more frequently. 10/23/2024 Patient is seen in follow-up with multiple consultations following. Cardiology with no plans of OG at this time recommending continue with IV antibiotic therapy for 4 weeks and reevaluation to discuss repeat OG and/or cardiac catheterization to ensure if patient truly needs aortic valve surgery. CT surgery following is undergoing further surgical workup. Patient has received a PICC line and will require IV antibiotics on discharge currently awaiting unemployment office to close her case so she can receive Medicaid. Social work is working diligently with the patient on this. The jones of home care nursing and equipment along with medications is quite expensive and patient unable to afford. Patient reports she is awaiting a call from the unemployment office. Patient is afebrile with no reports of chest pain or shortness of breath. Patient tolerating diet and continues to have bowel movements. Occasional nausea with no vomiting at this time. 10/24/2024 Patient is seen in follow-up today reporting some mild increase shortness of breath. Patient is maintained on 2 L with oxygen saturations above 96%. Patient is continued on oral Lasix although may benefit from IV Lasix as patient does appear to be edematous. Will obtain a chest x-ray. Patient is maintained on IV antibiotics with infectious disease following and will continue with outpatient IV antibiotics. Social work is following and will follow-up with unemployment and Medicaid after Sunday as patient needs to verify there have been no documented unemployment claims to receive payment for the last 2 weeks. Encouraged increase activity as tolerated recommend elevating lower extremities while at rest. Patient's family brought her compression stockings and and recommend to continue at this time. 10/27/2024 Patient is seen in follow-up today continued on antibiotics with infectious disease following. Patient to continue on IV Lasix for now as there is significant lower extremity swelling noted. Patient did have compression stockings on although was removed and patient is lower extremity dependent while sitting up in the chair. Encouraged elevating while at rest and continued compression stocking use. Patient has received paperwork regarding no documented claims on unemployment to provide to the Medicaid to receive insurance. This is pending and will need to determine if insurance has been activated to ensure safe discharge planning. Social work is following and will follow daily with Medicaid personal banking representative and also to arrange for outpatient IV antibiotic therapy. 10/28/2024 Patient is seen in follow-up today maintained on antibiotics and swelling of the lower extremities is slightly improved we will continue with IV Lasix and follow-up on repeat labs. Replace electrolytes per protocol. Patient reports is tolerating diet with small frequent meals and no nausea or vomiting noted. Patient does have a PICC line and is awaiting for insurance approval to initiate Medicaid so patient can discharge home on continued IV antibiotic therapy due to a vegetation on the aortic valve. Patient will need extensive outpatient follow-up with cardiology and CT surgery along with infectious disease. Social work is following and being updated daily. 10/29/2024 Patient is seen in follow-up today continues to sit in the chair and reporting her lower extremities are becoming more swollen again. Patient has compression stockings although is not been wearing them. Patient is maintained on daily Lasix and will continue to monitor kidney functions closely. No reports of gross recommend Scott wrapping from the toes up to the knees and elevating while at rest. Patient remains to be awaiting insurance determination with Medicaid to determine appropriate discharge planning including IV antibiotics and home care. 10/30/2024 Patient is seen in follow-up today with no acute overnight issues noted. Patient does have Scott wraps applied to bilateral lower extremities showing some improvements in lower extremity swelling and will continue on daily IV Lasix. Patient is tolerating well and kidney functions and electrolytes within normal limits. Patient continues to await Medicaid approval for discharge planning for continued IV antibiotics and home care in the outpatient setting. Patient is tolerating diet with no reports of nausea or vomiting. Patient is having bowel movements and denies diarrhea. Patient is continued on antibiotics with infectious disease following closely and discharge remains pending secondary to Medicaid. 10/31/2024 Patient is seen in follow-up today with infectious disease following. Patient is continued on IV antibiotics and has a PICC line in the left upper extremity. Patient is maintained on daily IV Lasix for continued lower extremity edema and normally takes Lasix daily. Patient to continue with Scott wrapping and elevating lower extremities while at rest. Patient continues to await insurance to be activated and Medicaid personal banking representative from [facility] is not working currently due to the holiday and will likely return on Sunday. Medicaid application remains pending at this time and will follow-up with social work on Sunday. Continue current regimen and will follow-up with repeat labs. Replace electrolytes per p rotocol. Encouraged increase activity as tolerated with frequently getting up and walking. Plan will be for home with home care with continued IV antibiotic therapy. 11.01.2024 Patient is evaluated today in follow up on the medical floor. Family at the bedside. No acute complaints. Awaiting to hear back about medicaid application from the [facility] personal banking representative. States she turned in all necessary paperwork and is hoping to hear Sunday for a decision. Continues on Iv antibiotics through PICC Line while inpatient. States the chest pain has subsided. Reporting no shortness of breath. WBC 6.09, hgb 8.1. 11/02/2024 Patient evaluated today in follow-up on the medical floor. Awaiting follow-up from a [facility] personal banking representative and social work regarding her Medicaid application and discharge planning tomorrow. She continues on IV antibiotics with a PICC line. She continues to report multiple episodes of loose stools felt to be due to the antibiotic. She continues on Questran twice daily. She is also on IV Lasix. 11/03/2024 Patient is seen in follow-up today continuing to await for Medicaid application with [facility] personal banking representative reporting it is still pending. Will follow-up daily on return phone calls to ensure safe discharge planning with IV antibiotics. Infectious disease following and patient is maintained on current regimen and will continue. Patient remains on IV Lasix and will transition to oral once discharged. Recommend continuing to elevate lower extremities and con tinued Scott wraps to bilateral lower extremities. Patient was tested for C. difficile and was negative and is being started on Imodium and Questran per ID recommendations. Continue to encourage increase activity as tolerated and will await Medicaid pending. 11/04/2024 Patient is seen in follow-up today with no acute overnight issues noted. Patient continues to await Medicaid determination which is currently pending. [facility] personal banking representative checking daily on the status with no updates as of yet. Patient is afebrile with no reports of chest pain or shortness of breath. Patient would like to go home and currently awaiting insurance for appropriate safe discharge planning as patient is with a PICC line and will be continued long-term antibiotics for the next few weeks due to bacteremia with infective endocarditis. Patient is afebrile reports of chest pain or shortness of breath. Patient has been tolerating diet with no reported nausea or vomiting. 11/05/2024 Patient is seen in follow-up and continues with the PICC line and maintained on IV antibiotics with infectious disease following. Social work continues to follow-up daily and Medicaid application continues to remain pending and will check on daily for updates to ensure a safe discharge plan that patient is able to go home with IV antibiotics and continued home care. Patient is afebrile with no reports of chest pain or shortness of breath. Patient reports her diarrhea is improving and is somewhat more formed. Patient is continued on Questran and will continue. Repeat labs in the a.m. and monitor kidney functions and electrolytes 11/06/2024 Patient seen in follow up today with no acute overnight issues noted. Co ntinuing to await Medicaid application to be approved and verified through [facility] for patient to be able to discharge home with IV antibiotics and home care for infective endocarditis. Patient is maintained on IV antibiotics and will continue with infectious disease following. No reports of chest pain or shortness of breath. Patient is tolerating diet with no reported nausea or vomiting. Patient is having bowel movements that are more consistent and less loose. 11/07/2024 Patient seen in follow-up today continues to be awaiting insurance to have a safe discharge plan with home care and IV antibiotics on discharge. Patient being followed by infectious disease and is maintained on antibiotics and will continue current regimen. Social work following daily and unfortunately due to the holiday Medicaid will not be able to be verified if it was started and we will follow-up on Sunday. Continue current supportive care. Encourage patient to increase activity as tolerated. Patient is medically stable for discharge just pending discharge planning due to insurance barrier 11/08/2024 Patient evaluated today in follow up. Family at the bedside. Reports improvement of diarrhea and has been maintained on questran BID. Patient has been continued on IV antibiotics and continue to await insurance approval. 11/09/2024 Patient evaluated today in follow up. she is up ambulating around the room without difficulty. States the diarrhea has essentially resolved. Did get a text message to her phone stating her medicaid application was accepted. She is awaiting a case number to finishing enrolling in [employer]. Social work and [facility] personal banking representative to follow up with patient tomorrow regarding this and hopefully can begin to work on discharge planning. White blood cell count 6.69, hgb 8.8., sodium 144, potassium 4.4., BUN 19, creatinine 0.49. Review of systems: Constitutional: No reports of fatigue, fever, or chills Cardiovascular: No reports of chest pain or palpitations Respiratory: reports of intermittent shortness of breath, denies cough GI: reports of occasional nausea, no reports of vomiting, reports improvement in abdominal discomfort and tenderness, reports having bowel movements : No reports of dysuria or retention Neurovascular: reports of generalized weakness All medications have been reviewed PHYSICAL EXAMINATION: GENERAL: The patient is awake, alert and oriented x4, Well developed, elderly appearing, morbidly obese HEENT: Pupils are round and equally reacting to light. EOMI. no scleral icterus. No conjunctival pallor. Normocephalic, atraumatic. No pharyngeal erythema. No thyromegaly. CARDIOVASCULAR: S1 and S2 muffled PULMONARY: diminished breath sounds bilaterally with no wheezing or rhonchi noted. ABDOMEN: soft. non-tender on exam. Morbidly obese. non-distended, normoactive bowel sounds. No palpable organomegaly. MUSCULOSKELETAL: No joint swelling or deformity. EXTREMITIES: No cyanosis, clubbing, bilateral lower extremity edema noted, nonpitting NEUROLOGICAL: Gross neurological examination did not reveal any focal deficits. Diffuse weakness SKIN: No rashes. Assessment: Abdominal pain, likely secondary to acute ileus, resolved, surgery evaluated with no plans of intervention at this time recommending conservative management Diarrhea likely from antibiotic use, C. difficile was negative chest pain, ACS ruled out History of chronic achalasia History of recent urinary tract infection, treated outpatient. Bacteremia with culture showing Enterococcus and repeat cultures negative Echo reported with concerns of an echogenic area in the aortic valve consistent with vegetation, normal EF, status post OG 10/20/2024 with a 1.3 x 1.3 cm vegetation noticed on the ventricular aspect of the aortic valve suggestive of infective endocarditis, evidence of PFO noticed as well History of atrial fibrillation with previous history of ablation History of congestive heart failure, acute exacerbation Acute hypoxic respiratory failure, secondary to above History of DVT/PE Hypertension Hyperlipidemia Morbid obesity with a BMI of 42.3 GI prophylaxis DVT prophylaxis Full code Plan: Patient did receive a PICC line as patient will require outpatient IV antibiotics on discharge. Medicaid application remains pending per [employer] personal banking representative as well as social work. Will follow-up daily regarding this to ensure safe discharge planning. Patient was having multiple episodes of loose stool and C. difficile testing was negative, continue Imodium and Questran per infectious disease Patient will need to undergo cardiac catheterization after clearance of bacteremia and CT surgery was consulted currently undergoing possible aortic valve replacement workup. Patient will follow-up in the next 4 weeks for repeat GO and/or cardiac catheterization procedure per cardiology. Per cardiology there are no plans for repeat OG at this time recommending possible cardiac catheterization outpatient in the next 4 weeks once cultures remain negative, continued IV antibiotics, on discharge. Social work following as patient has no insurance currently and has been receiving unemployment. Patient has not made claims in the last 2 weeks and has not received any monies and has received a letter from [facility] reporting she has not made any claims over the last 2 weeks and this was provided to Medicaid personal banking representative and awaiting to have Medicaid initiated to be able to afford IV antibiotics and home care on discharge. This remains pending and we will follow-up on daily. Social work is in contact with [employer] and remains undetermined at this time. Due to the weekend, lynne does not work on weekends and will have to follow-up on Sunday. This is delaying the discharge otherwise patient is medically stable and has been cleared for discharge. Encouraged increased activity as tolerated and getting up more frequently. The impression and plan of care has been dictated by Justa Mora, Nurse Practitioner as directed. Dr. Aroldo MD I have performed a history and physical examination and medical decision making of this patient, discussed the same with the dictator, and agree with the dictators assessment and plan as written, documented as a scribe. Based on total visit time, I have performed more than 50% of this visit. Objective - Vital Signs Vital signs: Vital Signs Temp 97.6 F 11/09/24 07:10 Pulse 64 11/09/24 07:10 Resp 18 11/09/24 07:10 BP 155/53 11/09/24 07:10 Pulse Ox 100 11/09/24 07:10 FiO2 Intake & Output 11/08/24 11/09/24 11/09/24 18:59 06:59 18:59 Intake Total 100 180 Balance 100 180 Intake: Oral 100 180 Other: Voiding Method Toilet # Voids 2 2 - Labs CBC & Chem 7: 11/06/24 06:55 11/06/24 06:55 Assessment and Plan Time with Patient: Less than 30
--- NOTE | 2024-11-09 16:05 | P.PN ---
Subjective Progress Note Date: 11/08/24 Principal diagnosis: Reason for follow-up is Enterococcus faecalis bacteremia Patient is a 59-year-old female with a past medical history significant for hypertension hyperlipidemia osteoarthritis DVT atrial fibrillation recently treated in the outpatient setting from urgent care with the Bactrim JOSE for UTI presenting to [facility] ER subsequently with persistent symptoms she has been complaining of lower abdominal pain as well as shortness of breath, negative UA but blood cultures came back positive Enterococcus faecalis CT abdominal pelvis no acute intra-abdominal pathology. 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 On today's evaluation that is 11/09/2023, patient did have a temperature of 97.7 F this morning and denies having any chills, patient is on room air and breathing comfortably no chest pain or cough, the patient did not have any nausea vomiting abdominal pain and diarrhea historian. No new lab has been obtained today Objective - Vital Signs Vital signs: Vital Signs Temp 97.7 F 11/08/24 07:18 Pulse 69 11/08/24 07:18 Resp 16 11/08/24 07:18 BP 161/65 11/08/24 07:18 Pulse Ox 97 11/08/24 07:18 FiO2 Intake & Output 11/07/24 11/08/24 11/08/24 18:59 06:59 18:59 Intake Total 660 100 Balance 660 100 Intake: Oral 660 100 Other: Voiding Method Bedside Commode # Voids 1 1 - Exam GENERAL DESCRIPTION: Middle-age female lying in bed in no distress RESPIRATORY SYSTEM: Unlabored breathing , decreased breath sounds at bases HEART: S1 S2 regular rate and rhythm , ABDOMEN: Soft , no tenderness EXTREMITIES: No edema feet - Labs CBC & Chem 7: 11/06/24 06:55 11/06/24 06:55 Assessment and Plan (1) Abdominal pain Current Visit: Yes Status: Acute Code(s): R10.9 - UNSPECIFIED ABDOMINAL PAIN SNOMED Code(s): 32692209 (2) Bacteremia Current Visit: Yes Status: Acute Code(s): R78.81 - BACTEREMIA SNOMED Code(s): 2567543 (3) Enterococcus faecalis infection Current Visit: Yes Status: Acute Code(s): A49.8 - OTHER BACTERIAL INFECTIONS OF UNSPECIFIED SITE SNOMED Code(s): 610417196 (4) Diarrhea Current Visit: Yes Status: Acute Code(s): R19.7 - DIARRHEA, UNSPECIFIED SNOMED Code(s): 38688497 Plan: 1patient presented to hospital with lower abdominal pain to have urinary symptoms recently completed course of Bactrim DS for UTI patient did have a negative UA more likely indicating adequate treatment of underlying UTI she has been complaining some abdominal pain however the patient did have a CT abdominal pelvis that has been negative for any acute process 2patient did have a positive blood culture Enterococcus faecalis which is usually of urinary or GI source however patient did have a negative UA CT abdominal pelvis done without contrast did not show acute intra-abdominal pathology, unfortunately CT abdominal pelvis was done again without oral and IV contrast and still waiting for echocardiogram report to be available as of 10/16/2024 3patient echocardiogram completed and reported as possible vegetation to the aortic valve cardiology plan is status post OG completed 10/20/2024 with evide nce of aortic valve vegetation but no abscess CT surgery has been consulted following the patient closely apparently plan is for no surgery at this point as per discussion with the admitting team 4patient currently being treated Rocephin and ampicillin for her endocarditis and continue with the Questran as needed for the diarrhea Dictation was produced using Open[employer] dictation software. please excuse any grammatical, word or spelling errors.
[2024-11-10 01:06] VITALS: RESP 18
[2024-11-10 16:04] VITALS: BP 124/70; PULSE 76; TEMP 98.1
--- NOTE | 2024-11-10 16:42 | P.PN ---
Subjective Progress Note Date: 11/09/24 Principal diagnosis: Reason for follow-up is Enterococcus faecalis bacteremia Patient is a 59-year-old female with a past medical history significant for hypertension hyperlipidemia osteoarthritis DVT atrial fibrillation recently treated in the outpatient setting from urgent care with the Bactrim DS for UTI presenting to [facility] ER subsequently with persistent symptoms she has been complaining of lower abdominal pain as well as shortness of breath, negative UA but blood cultures came back positive Enterococcus faecalis CT abdominal pelvis no acute intra-abdominal pathology. 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 On today's evaluation that is 11/09/2024, Patient is afebrile patient is currently on room air and breathing comfortably no distress patient was sleepy no bradycardia or any other changes reported by nursing staff. No new lab has been obtained today Objective - Vital Signs Vital signs: Vital Signs Temp 97.6 F 11/09/24 14:35 Pulse 67 11/09/24 14:35 Resp 18 11/09/24 14:35 BP 124/52 11/09/24 14:35 Pulse Ox 98 11/09/24 14:35 FiO2 Intake & Output 11/08/24 11/09/24 11/09/24 18:59 06:59 18:59 Intake Total 100 180 100 Balance 100 180 100 Intake: Oral 100 180 100 Other: Voiding Method Toilet Toilet # Voids 2 2 - Exam GENERAL DESCRIPTION: Middle-age female lying in bed in no distress RESPIRATORY SYSTEM: Unlabored breathing , decreased breath sounds at bases HEART: S1 S2 regular rate and rhythm , ABDOMEN: Soft , no tenderness EXTREMITIES: No edema feet - Labs CBC & Chem 7: 11/06/24 06:55 11/06/24 06:55 Assessment and Plan (1) Abdominal pain Current Visit: Yes Status: Acute Code(s): R10.9 - UNSPECIFIED ABDOMINAL PAIN SNOMED Code(s): 40631199 (2) Bacteremia Current Visit: Yes Status: Acute Code(s): R78.81 - BACTEREMIA SNOMED Code(s): 3930956 (3) Enterococcus faecalis infection Current Visit: Yes Status: Acute Code(s): A49.8 - OTHER BACTERIAL INFECTIONS OF UNSPECIFIED SITE SNOMED Code(s): 472730141 (4) Diarrhea Current Visit: Yes Status: Acute Code(s): R19.7 - DIARRHEA, UNSPECIFIED SNOMED Code(s): 61042819 Plan: 1patient presented to hospital with lower abdominal pain to have urinary symptoms recently completed course of Bactrim DS for UTI patient did have a negative UA more likely indicating adequate treatment of underlying UTI she has been complaining some abdominal pain however the patient did have a CT abdominal pelvis that has been negative for any acute process 2patient did have a positive blood culture Enterococcus faecalis which is usually of urinary or GI source however patient did have a negative UA CT abdominal pelvis done without contrast did not show acute intra-abdominal pathology, unfortunately CT abdominal pelvis was done again without oral and IV contrast and still waiting for echocardiogram report to be available as of 10/16/2024 3patient echocardiogram completed and reported as possible vegetation to the aortic valve cardiology plan is status post OG completed 10/20/2024 with evidence of aortic valve vegetation but no abscess CT surgery has been consulted following the patient closely apparently plan is for no surgery at this point as per discussion with the admitting team 4patient currently being treated Rocephin and ampicillin for her endocarditis to finish her 6-week course of therapy and continue with the Questran as needed for the diarrhea Dictation was produced using [employer] dictation software. please excuse any grammatical, word or spelling errors. Time with Patient: Less than 30
--- NOTE | 2024-11-10 16:44 | P.PN ---
Subjective Progress Note Date: 11/10/24 Principal diagnosis: Reason for follow-up is Enterococcus faecalis bacteremia Patient is a 59-year-old female with a past medical history significant for hypertension hyperlipidemia osteoarthritis DVT atrial fibrillation recently treated in the outpatient setting from urgent care with the Bactrim JOSE for UTI presenting to [facility] ER subsequently with persistent symptoms she has been complaining of lower abdominal pain as well as shortness of breath, negative UA but blood cultures came back positive Enterococcus faecalis CT abdominal pelvis no acute intra-abdominal pathology. 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 On today's evaluation that is 11/10/2024 the patient continues to be febrile patient is breathing comfortably and is currently on a room air no chest pain shortness of breath or cough he denies any nausea vomiting abdominal pain and diarrhea has improved. No new lab has been obtained today Objective - Vital Signs Vital signs: Vital Signs Temp 98.1 F 11/10/24 15:34 Pulse 76 11/10/24 15:34 Resp 18 11/10/24 15:34 BP 124/70 11/10/24 15:34 Pulse Ox 98 11/10/24 15:34 FiO2 Intake & Output 11/09/24 11/10/24 11/10/24 18:59 06:59 18:59 Intake Total 100 298 200 Balance 100 298 200 Intake: Oral 100 298 200 Other: Voiding Method Toilet # Voids 3 3 - Exam GENERAL DESCRIPTION: Middle-age female lying in bed in no distress RESPIRATORY SYSTEM: Unlabored breathing , decreased breath sounds at bases HEART: S1 S2 regular rate and rhythm , ABDOMEN: Soft , no tenderness EXTREMITIES: No edema feet - Labs CBC & Chem 7: 11/06/24 06:55 11/06/24 06:55 Assessment and Plan (1) Abdominal pain Current Visit: Yes Status: Acute Code(s): R10.9 - UNSPECIFIED ABDOMINAL PAIN SNOMED Code(s): 52286550 (2) Bacteremia Current Visit: Yes Status: Acute Code(s): R78.81 - BACTEREMIA SNOMED Code(s): 3665840 (3) Enterococcus faecalis infection Current Visit: Yes Status: Acute Code(s): A49.8 - OTHER BACTERIAL INFECTIONS OF UNSPECIFIED SITE SNOMED Code(s): 295960889 (4) Diarrhea Current Visit: Yes Status: Acute Code(s): R19.7 - DIARRHEA, UNSPECIFIED SNOMED Code(s): 41359887 Plan: 1patient presented to hospital with lower abdominal pain to have urinary symptoms recently completed course of Bactrim DS for UTI patient did have a negative UA more likely indicating adequate treatment of underlying UTI she has been complaining some abdominal pain however the patient did have a CT abdominal pelvis that has been negative for any acute process 2patient did have a positive blood culture Enterococcus faecalis which is usually of urinary or GI source however patient did have a negative UA CT abdominal pelvis done without contrast did not show acute intra-abdominal pathology, unfortunately CT abdominal pelvis was done again without oral and IV contrast and still waiting for echocardiogram report to be available as of 10/16/2024 3patient echocardiogram completed and reported as possible vegetation to the aortic valve cardiology plan is status post OG completed 10/20/2024 with evidence of aortic valve vegetation but no abscess CT surgery has been consulted following the patient closely apparently plan is for no surgery at this point as per discussion with the admitting team 4patient has received about 4 weeks of IV Rocephin and ampicillin patient will need only 2 weeks of IV Rocephin 2 g every 8 hours and ampicillin 2 g every 6 hours on discharge to finish 6-week course of therapy and close outpatient follow-up this was discussed with [employer] for admitting team working on discharge Dictation was produced using Syn[employer] dictation software. please excuse any grammatical, word or spelling errors. Time with Patient: Less than 30
--- NOTE | 2024-11-13 16:17 | P.DS ---
Providers Date of admission: 10/12/24 19:30 Attending physician: Michelle Arevalo Consults: 10/13/24 12:04 Consult Physician Routine Consulting Provider: Navneet Jenkins Consult Reason/Comments: uti Do you want consulting provider notified?: Yes 10/21/24 08:23 Consult Physician Routine Consulting Provider: Nani Jose Consult Reason/Comments: endocarditis Do you want consulting provider notified?: Yes 10/22/24 07:19 Consult to Anesthesia Routine Consulting Provider: Anesthesia,Services Consult Reason/Comments: Cardiac Surgery Pre-Op Primary care physician: Juanito Abreu [place] Course: Final Diagnosis Abdominal pain, likely secondary to acute ileus, resolved, surgery evaluated with no plans of intervention at this time recommending conservative management Diarrhea likely from antibiotic use, C. difficile was negative chest pain, ACS ruled out History of chronic achalasia History of recent urinary tract infection, treated outpatient. Bacteremia with culture showing Enterococcus and repeat cultures negative Echo reported with concerns of an echogenic area in the aortic valve consistent with vegetation, normal EF, status post OG 10/20/2024 with a 1.3 x 1.3 cm vegetation noticed on the ventricular aspect of the aortic valve suggestive of infective endocarditis, evidence of PFO noticed as well History of atrial fibrillation with previous history of ablation History of congestive heart failure, acute exacerbation Acute hypoxic respiratory failure, secondary to above History of DVT/PE Hypertension Hyperlipidemia Morbid obesity with a BMI of 42.3 GI prophylaxis DVT prophylaxis Full code Discharge Disposition Patient stable for discharge home. PICC line has been placed. Patient to continue with IV antibiotics in the form of IV Rocephin 2 g every 8 hours and ampicillin 2 g every 6 hours on discharge for 2 weeks. This will complete a 6- week course of antibiotic therapy as patient has already had IV Rocephin and ampicillin while in the hospital. She will follow-up with Dr. Villafana at the cardiology office in 4 weeks for repeat OG and further evaluation by cardiothoracic surgery of the aortic valve. Diarrhea has essentially resolved. Patient will discharge home with home care services. Recommend weekly monitoring of her labs while she is on IV antibiotics. Total time taken in discharge planning greater than 35 minutes. Hospital Course This is a pleasant 59-year-old female who was recently admitted with abdominal pain noted to have a dilated esophagus with ingested contents and achalasia. Patient reports she followed with GI in the outpatient setting many years ago and was told there is not much that can be done to correct this. Patient continues with abdominal pain with general surgery following with no plans of surgical intervention and no endoscopy at this time. Patient did have a blood culture that was positive and growing Enterococcus with infectious disease following. Patient found to have Enterococcus bacteremia. Echo report was resulted and there is some echogenic area noted on the aortic valve consistent with vegetation with mild to moderate aortic regurgitation and moderate pulmonary hypertension along with moderate mitral and mild tricuspid regurgitation noted. OG reports a 1.3 cm x 1.3 cm vegetation noted on the ventricular aspect of the aortic valve suggestive of infective endocarditis. Moderate aortic regurgitation. No evidence of abscess formation in the aorto mitral curtain. Mild mitral regurgitation mild tricuspid regurgitation with no evidence of vegetation on these valves evidence of PFO noticed. Normal global LV size and systolic function. Patient to receive a PICC line as patient will require IV antibiotics outpatient. Cardiology recommending continue with IV antibiotic therapy for 4 weeks and reevaluation to discuss repeat OG and/or cardiac catheterization to ensure if patient truly needs aortic valve surgery. CT surgery following is undergoing further surgical workup. Social work currently working with the patient as she has no insurance but has not been receiving insurance as patient is receiving unemployment. Patient has received Medicaid while in the hospital. Patient had prolonged hospital stay due to the Medicaid application process as she did not have health insurance prior to coming into the hospital. ID has recommended a course of IV Unasyn and IV ceftriaxone through the PICC line. Patient to follow-up as noted with cardiology and cardiothoracic surgery on an outpatient basis. Please see medication reconciliation for a list of current medications. Thank you for allowing us to participate in the care of this patient. The impression and plan of care has been dictated by Justa Mora, Nurse Practitioner as directed. Dr. Aroldo MD I have performed a history and physical examination and medical decision making of this patient, discussed the same with the dictator, and agree with the dictators assessment and plan as written, documented as a scribe. Based on total visit time, I have performed more than 50% of this visit. Patient Condition at Discharge: Good Plan - Discharge Summary New Discharge Prescriptions: New Losartan [Cozaar] 100 mg PO DAILY #60 tab Iron Ps Cmplx/Vit B12/FA [Niferex-150 Forte] 1 each PO DAILY #30 cap Pantoprazole [Protonix] 40 mg PO DAILY #30 tab Continue Apixaban [Eliquis] 5 mg PO BID #60 tab DULoxetine HCL [Cymbalta] 60 mg PO BID Atorvastatin [Lipitor] 20 mg PO DAILY Albuterol Nebulized [Ventolin Nebulized] 2.5 mg INHALATION RT-TID PRN PRN Reason: Shortness Of Breath Furosemide [Lasix] 20 mg PO DAILY Metoprolol Tartrate [Lopressor] 50 mg PO BID #60 tab Discontinued Losartan [Cozaar] 50 mg PO DAILY #30 tab Discharge Medication List Apixaban [Eliquis] 5 mg PO BID #60 tab 11/17/17 [Rx] DULoxetine HCL [Cymbalta] 60 mg PO BID 03/02/21 [History] Albuterol Nebulized [Ventolin Nebulized] 2.5 mg INHALATION RT-TID PRN 09/02/24 [History] Atorvastatin [Lipitor] 20 mg PO DAILY 09/02/24 [History] Metoprolol Tartrate [Lopressor] 50 mg PO BID #60 tab 09/03/24 [Rx] Furosemide [Lasix] 20 mg PO DAILY 10/12/24 [History] Iron Ps Cmplx/Vit B12/FA [Niferex-150 Forte] 1 each PO DAILY #30 cap 11/10/24 [Rx] Losartan [Cozaar] 100 mg PO DAILY #60 tab 11/10/24 [Rx] Pantoprazole [Protonix] 40 mg PO DAILY #30 tab 11/10/24 [Rx] Follow up Appointment(s)/Referral(s): Ck Villafana MD [Medical Doctor] - 4 Weeks (Cardiology f/u after completion of IV antibiotics ) Nani Jose MD [STAFF PHYSICIAN] - As Needed (Please call for follow up with surgeon after heart catheterization and repeat OG have been completed) Salina Rodriguez MD [STAFF PHYSICIAN] - 1 Week (Follow up for the Achalasia ) Juanito Abreu DO [Primary Care Provider] - 1-2 days [facility], [REFERRING] - 11/10/24 6:00 pm Navneet Jenkins MD [STAFF PHYSICIAN] - 1 Week [facility], [NON-STAFF] - 11/11/24 8:00 am Ambulatory/Diagnostic Orders: Comprehensive Metabolic Panel [LAB.AMB] Location: None Selected C Reactive Protein [LAB.AMB] Time Frame: 1 Week, Location: None Selected Complete Blood Count w/diff [LAB.AMB] Time Frame: 1 Week, Location: None Selected Activity/Diet/Wound Care/Special Instructions: Continue IV unasyn and IV ceftriaxone through PICC line as recommended by Dr Jenkins Follow up with Dr. Jenkins in the office in 1 week Follow up with [facility] Dr Villafana in 4 weeks once antibiotics have been completed Follow up with cardiothoracic surgeon Discharge Disposition: HOME WITH HOME HEALTH SERVICES
== END 2024-11-10 16:30 | disposition home health service (06) | DRG 463 ==
LOC: EC 13:42 → 6NMEDSUR 19:29 → OBSVTOIN 19:30 → 6NMEDSUR 20:34
PROVIDERS: ADMIT Hospitalist; ATTEND Hospitalist
PROC: 02HV33Z Insertion of Infusion Device into Superior Vena Cava, Percutaneous Approach (ICD-10-PCS; 2024-10-19)
PROC: B24BZZ4 Ultrasonography of Heart with Aorta, Transesophageal (ICD-10-PCS; principal; 2024-10-20 08:00)
DX: N39.0 Urinary tract infection, site not specified (principal); I33.0 Acute and subacute infective endocarditis; R78.81 Bacteremia; I27.22 Pulmonary hypertension due to left heart disease; K22.0 Achalasia of cardia; I48.92 Unspecified atrial flutter; K56.7 Ileus, unspecified; Q21.12 Patent foramen ovale; I11.0 Hypertensive heart disease with heart failure; I50.32 Chronic diastolic (congestive) heart failure; J84.9 Interstitial pulmonary disease, unspecified; E66.01 Morbid (severe) obesity due to excess calories; E11.9 Type 2 diabetes mellitus without complications; D64.9 Anemia, unspecified; I48.91 Unspecified atrial fibrillation; K22.89 Other specified disease of esophagus; E78.5 Hyperlipidemia, unspecified; K57.30 Diverticulosis of large intestine without perforation or abscess without bleeding; R53.81 Other malaise; B95.2 Enterococcus as the cause of diseases classified elsewhere; I08.3 Combined rheumatic disorders of mitral, aortic and tricuspid valves; Z68.41 Body mass index [BMI] 40.0-44.9, adult; Z79.01 Long term (current) use of anticoagulants; Z56.0 Unemployment, unspecified; Z59.71 Insufficient health insurance coverage; Z87.891 Personal history of nicotine dependence; Z86.711 Personal history of pulmonary embolism; Z86.718 Personal history of other venous thrombosis and embolism; Z90.49 Acquired absence of other specified parts of digestive tract; Z79.899 Other long term (current) drug therapy
CPT/HCPCS: 36415; 36573; 51798; 71045; 71046; 71275; 74176; 74177; 80048; 80053; 80061; 80074; 81003; 83036; 83735; 83880; 84100; 84132; 84443; 84484; 85025; 85610; 85730; 87040; 87070; 87077; 87086; 87186; 87324; 93005; 93308; 93312; 93320; 93325; 93880; 93970; 94150; 94760; 96361; 96365; 96366; 96375; 96376; 99285